=== PATIENT | female | born 1990 | race Caucasian/White ===

== ENCOUNTER 2020-01-20 10:38 | Emergency (ER) | payer OTHER, SELFPAY ==
[2020-01-20 10:44] VITALS: BP 107/57; PULSE 70; RESP 16; TEMP 36.3; O2SAT 100
--- NOTE | 2020-01-20 11:03 | ED.RECABL ---
HPI - Recheck/Abnormal Lab/Rx General Chief Complaint: Recheck/Abnormal Lab/Rx Stated Complaint: abnormal liver enzyme results Time Seen by Provider: 01/20/20 10:53 Source: patient Mode of arrival: ambulatory Limitations: no limitations History of Present Illness HPI narrative: Pt is a 29 y/o female who presents to the ED with c/o abnormal liver enzyme levels after she got her blood drawn at school 3 days ago. She states that her liver enzymes were nml when she had her blood drawn 6 months ago. She denies a H/o Hepatitis. Pt states that she has her Hep B vaccinations and she was told that it was not likely for her to have Hep C, but she has not received her blood work back. Pt reports numbness/tingling to extremities and extreme fatigue. She was referred to a neurologist but has not gotten an appointment yet. Pt also reports rt flank pain. She denies EtOH abuse, Tylenol use, or drug abuse. complaint: abnormal lab Initial visit (ago): day(s) (3) Returns today for: called because of abnormal lab/test Description of abnormal result: high liver ezymes Symptoms since prior visit: no new symptoms Context: called for abnormal lab result Associated symptoms: malaise and other (rt flank pain, numbness/tingling to extremities) Related Data Home Medications Medication Instructions Recorded Confirmed clonazepam [Klonopin] 0.5 mg PO TID 10/14/19 10/18/19 dextroamphetamine-amphetamine 30 mg PO BID 01/20/20 [Adderall] Allergies Allergy/AdvReac Type Severity Reaction Status Date / Time No Known Allergies Allergy Verified 01/20/20 10:47 Review of Systems Review of Systems: All systems reviewed & are unremarkable except as noted in HPI and below Constitutional: Constitutional: Reports fatigue Genitourinary: Genitourinary: Reports flank pain (rt) Neurologic: Reports numbness and Reports tingling PMFSH Past Medical History Medical History Achilles tendon tear ACL tear Anxiety Bipolar 1 disorder Surgical History Surgical History S/P ACL repair Social History Social History (Updated 01/20/20 @ 11:26 by [place]) Smoking status: Former smoker Alcohol intake: never Substance use: never Gender identity (if verbalized by the patient): Male Spiritual care concerns: No Exam Narrative: Exam Narrative: GENERAL: Well-appearing, well-nourished, and in no acute distress. HEAD: Normocephalic, atraumatic. EYES: PERRLA and EOMI. ENT: Nares clear, . Mucous membranes moist. NECK: Supple. CHEST: Clear to auscultation. No respiratory distress. HEART: Regular rate and rhythm. No murmur heard. Normal peripheral pulses. ABDOMEN: Soft, non tender, non distended, normal active bowel sounds. EXTREMITIES: Normal range of motion. No edema. SKIN: Warm, dry, no rash. NEURO: No focal deficits. Alert and oriented x3. PSYCH: Normal mood and affect. Course Course Emergency Course: Informed her about her lab work. I advised her to follow-up with the GI regarding elevated liver enzymes. Vital Signs Vital signs: Vital Signs Temperature 36.3 C L 01/20/20 10:44 Pulse Rate 70 01/20/20 10:44 Respiratory Rate 16 01/20/20 10:44 Blood Pressure 107/57 L 01/20/20 10:44 Pulse Oximetry 100 01/20/20 10:44 Temperature 36.3 C L 01/20/20 10:44 Pulse Rate 70 01/20/20 10:44 Respiratory Rate 16 01/20/20 10:44 Blood Pressure 107/57 L 01/20/20 10:44 Pulse Oximetry 100 01/20/20 10:44 MDM - Recheck/Abnormal Lab/Rx Lab Data Result diagrams: 01/20/20 11:23 01/20/20 11:23 Labs: Lab Results 01/20/20 01/20/20 01/20/20 Range/Units 11:23 11:23 11:23 WBC 5.0 (4.5-10.0) K/mm3 RBC 3.94 L (4.2-5.4) M/mm3 Hgb 11.9 L (12.0-15.0) g/dL Hct 35.5 L (37.0-47.0) % MCV 90.1 (80-100) fl MCH 30.2 (26-34) pg MCHC 33.5 (32-36) g/dl RDW 11.8 (11.5
[2020-01-20 11:29] LABS: Basophils Percent Auto 0.6 % (0.2-1.2); Eosinophils Absolute Auto 0.1 K/mm3 (0-0.3); Hematocrit 35.5 % (37.0-47.0); Hemoglobin 11.9 g/dL (12.0-15.0); Immature Granulocyte Absolute 0.01 K/mm3 (0.00-0.031); Immature Granulocyte Percent A 0.2 % (0-0.5); Lymphocytes Absolute Auto 2.05 K/mm3 (0.9-3.2); Lymphocytes Percent Auto 41.3 % (18.3-44.2); Mean Corpuscular HGB Conc 33.5 g/dl (32-36); Mean Corpuscular Hemoglobin 30.2 pg (26-34); Mean Corpuscular Volume 90.1 fl (80-100); Monocytes Absolute Auto 0.4 K/mm3 (0.1-0.6); Monocytes Percent Auto 8.9 % (2.6-8.5); Neutrophils Absolute Auto 2.3 K/mm3 (1.3-6.7); Platelet Count Result 224 k/mm3 (150-375); Red Blood Count 3.94 M/mm3 (4.2-5.4); Red Cell Distribution Width 11.8 % (11.5-14.5)
[2020-01-20 11:43] LABS: Alanine Aminotransferase 166 U/L (4-35); Albumin Level 4.2 g/dL (3.5-5.1); Alkaline Phosphatase 62 U/L (38-126); Aspartate Amino Transferase 41 U/L (14-36); Bilirubin,Total 0.3 mg/dL (0.2-1.3); Blood Urea Nitrogen 13 mg/dL (7-17); Carbon Dioxide 24 mmol/L (22-30); Chloride 103 mmol/L (98-107); Estimated CRCL calculation 82 ml/min; Estimated Glomerular Filt Rate > 60; Glucose 77 mg/dL (65-105); Potassium 3.8 mmol/L (3.4-5.0); Sodium 138 mmol/L (137-145)
[2020-01-20 12:14] LABS: Hepatitis B Surface Antigen Negative (Negative)
[2020-01-20 12:20] LABS: HAV RESULT Negative (Negative); Hepatitis B Core IgM Result Negative (Negative)
[2020-01-20 12:32] LABS: Hepatitis C Virus Antibody Negative (Negative)
[2020-01-20 13:19] VITALS: PULSE 80; RESP 20; TEMP 36.8; O2SAT 99
== END 2020-01-20 13:19 | disposition home or self-care (01) ==
PROVIDERS: Emergency Provider Family Medicine
DX: R74.0 Nonspecific elevation of levels of transaminase and lactic acid dehydrogenase [LDH] (principal); F41.9 Anxiety disorder, unspecified; F31.9 Bipolar disorder, unspecified
CPT/HCPCS: 36415; 80053; 80074; 85025; 99283

== ENCOUNTER 2020-10-19 13:48 | Outpatient (RCR) | payer OTHER, SELFPAY ==
[2020-10-19 15:15] VITALS: BP 89/50; PULSE 85
== END 2021-01-17 23:59 | disposition home or self-care (01) ==
LOC: ANHOBOP 13:48
PROVIDERS: Visit Provider Obstetrics & Gynecology Gynecology
DX: O36.8120 Decreased fetal movements, second trimester, not applicable or unspecified (principal); Z3A.27 27 weeks gestation of pregnancy
CPT/HCPCS: 59025

== ENCOUNTER 2021-12-16 13:19 | Emergency (ER) | payer BC, SELFPAY ==
--- NOTE | ~2021-12-16 | CT_ITS ---
EXAMINATION: CT brain wo con DATE: 12/16/2021 18:35 INDICATION: Headache. Visual disturbance. Dizziness. TECHNIQUE: Computed tomography (CT) of the head was performed without intravenous contrast. The mA wa s adjusted according to patient size. Iterative reconstruction technique was employed. Exam dose: 60 5.33 mGy-cm total exam DLP. COMPARISON: None FINDINGS: No skull fracture or bone destruction. The mastoid air cells and included paranasal sinuses are normally developed and aerated. No intracranial mass lesion or hemorrhage or cerebrovascular accident. No midline shift or mass effec t. No subdural or epidural hematoma. Normal ventricular size. Normal tian-white matter differentiatio n. The orbits are unremarkable. IMPRESSION: No significant abnormality Reviewed, dictated and finalized at [facility] Reviewed, dictated and finalized at [facility]. [facility] IMPRESSION: No significant abnormality
[2021-12-16 13:50] VITALS: BP 115/68; PULSE 91; RESP 18; TEMP 36.6; O2SAT 98
[2021-12-16 16:21] VITALS: BP 106/57; PULSE 60; RESP 16; TEMP 36.9; O2SAT 98
--- NOTE | 2021-12-16 17:31 | PC.NURSE ---
Pt reports vision changes with spots followed by a severe headache. States she feels a little better now .
[2021-12-16 17:59] VITALS: BP 118/64; PULSE 78; RESP 18; O2SAT 98
--- NOTE | 2021-12-16 18:40 | ED.HA ---
HPI - Headache General Chief Complaint: Headache Stated Complaint: dizzy/headache Time Seen by Provider: 12/16/21 17:36 Source: patient Mode of arrival: ambulatory Limitations: no limitations History of Present Illness HPI Narrative: 31-year-old female Generally pretty healthy Here today because of the second of 2 recent episodes of headache This morning around 10 AM she was at work which involves using a computer She reported a visual disturbance which sounds like a scotoma as if she had started a bright light and this was followed by dizziness and a pounding headache She took some Tylenol but did not help much Saw the nurse at work who wanted her go to the ER in [place] but she had to go home and check on her child And when she talked to her PCP she was advised to be checked in the ED The prior headache episode earlier this month was similar to this but she did not seek any evaluation at that time No fever, no sore throat, no stiff neck, no sinus symptoms, no focal neuro symptoms Related Data Home Medications Medication Instructions Recorded Confirmed clonazepam [Klonopin] 0.5 mg PO TID 10/14/19 12/16/21 dextroamphetamine-amphetamine 20 mg PO BID 01/20/20 12/16/21 [Adderall] Allergies Allergy/AdvReac Type Severity Reaction Status Date / Time No Known Allergies Allergy Verified 01/20/20 10:47 Review of Systems Review of Systems: All systems reviewed & are unremarkable except as noted in HPI and below Constitutional: Constitutional: Reports no additional constitutional complaints, Denies chills, Denies fever(s) and Denies headache(s) Eyes: Eyes: Reports no additional eye complaints, Reports change in vision and Reports photophobia ENT: Denies headache(s), Denies nasal congestion and Denies sore throat Cardiovascular: Cardiovascular: Denies chest pain and Denies dyspnea Respiratory: Respiratory: Denies cough and Denies dyspnea Gastrointestinal: Gastrointestinal: Denies vomiting Genitourinary: Genitourinary: Denies urinary frequency Musculoskeletal: Musculoskeletal: Denies myalgias, Denies deformity and Denies numbness Integumentary/Breasts: Skin/Breast: Denies rash and Denies wounds Neurologic: Reports headache(s), Denies focal weakness and Denies numbness Psychiatric: Psychiatric: Reports no additional psychiatric complaints Endocrine: Endocrine: Reports no additional endocrine complaints Hematologic/Lymphatic: Hematologic/Lymphatic: Reports no additional hematologic/lymphatic complaints Allergic/Immunologic: Allergic/Immunologic: Reports no additional allergic/immunologic complaints [facility] Past Medical History Medical History (Updated 12/16/21 @ 19:53 by Agustín Quijano MD) Achilles tendon tear ACL tear Anxiety Bipolar 1 disorder Surgical History Surgical History S/P ACL repair Social History Social History Smoking status: Former smoker Alcohol intake: never Substance use: never Gender identity (if verbalized by the patient): Male Spiritual care concerns: No Exam Const: General: cooperative, no acute distress and alert Orientation/consciousness: patient oriented x3 (alert) Limitations: No altered mental status HENMT: Head: normal to inspection, normocephalic and atraumatic Ears: external ears normal General nose exam: no epistaxis Other: No sinus tenderness Eyes: Conjunctivae: conjunctivae normal Pupils: Equal, round and reactive pupils present EOM: EOMs intact bilaterally Other: Sharp discs Neck: Neck: normal visual inspection, no meningeal signs, supple and no JVD Other: Supple Resp: Effort & Inspection: normal respiratory effort and not labored Auscultation: other (BS =) Skin: General skin exam: normal color and no rashes or lesions noted Neuro: General: patient oriented x3 (alert), moves all extremities, no meningeal signs and CN's
[2021-12-16] MEDS: diphenhydrAMINE HCl INJ 50 MG/ML VIAL 25 MG IV PUSH (18:54)
[2021-12-16] MEDS: PROCHLORPERAZINE EDISYLATE 10 MG/2 ML VIAL IV PUSH (18:54)
--- NOTE | 2021-12-16 19:00 | PC.NURSE ---
Assuming care of pt.
[2021-12-16 19:21] VITALS: BP 107/57; PULSE 60; RESP 16; O2SAT 98
[2021-12-16 20:08] VITALS: BP 110/65; PULSE 66; RESP 18; O2SAT 100
== END 2021-12-16 20:09 | disposition home or self-care (01) ==
PROVIDERS: Emergency Provider Emergency Medicine; PCP Physician Assistant
DX: G43.909 Migraine, unspecified, not intractable, without status migrainosus (principal); F31.9 Bipolar disorder, unspecified; F41.9 Anxiety disorder, unspecified; Z87.891 Personal history of nicotine dependence
CPT/HCPCS: 70450; 96374; 96375; 99284; J0780; J1200

== ENCOUNTER → 2024-05-17 12:29 | Outpatient (CLI) | payer BC, SELFPAY ==
--- NOTE | ~2024-05-17 | XR_ITS ---
EXAMINATION: XR hip LT 2V w AP pelvis DATE: 05/17/2024 12:58 INDICATION: Low back pain. TECHNIQUE: An anteroposterior view of the pelvis and 2 views of left hip were obtained. COMPARISON: None. FINDINGS: Bone alignment is normal. No fracture. There is mild osteoarthritis of the hips characteriz ed by tiny osteophytes. No joint space narrowing. IMPRESSION: 1. Mild osteoarthritis of the hips. Reviewed, dictated and finalized at [facility].
--- NOTE | ~2024-05-17 | XR_ITS ---
EXAMINATION: XR lumbar spine 2-3V DATE: 05/17/2024 13:00 INDICATION: Low back pain. TECHNIQUE: 3 views of lumbar spine on 4 radiographs were obtained. COMPARISON: None. FINDINGS: Bone alignment is normal. Vertebral body heights and intervertebral disc heights are normal . The facet joints are unremarkable. IMPRESSION: 1. Normal lumbar spine. Reviewed, dictated and finalized at [facility]. IMPRESSION: 1. Normal lumbar spine.
== END ==
PROVIDERS: PCP Physician Assistant; Visit Provider Physician Assistant
DX: M16.0 Bilateral primary osteoarthritis of hip (principal)
CPT/HCPCS: 72100; 73502

== ENCOUNTER 2024-06-25 01:37 | Emergency (ER) | payer BC, SELFPAY ==
--- NOTE | ~2024-06-25 | CT_ITS ---
EXAMINATION: CT abdomen pelvis w con DATE: 06/25/2024 07:10 INDICATION: Blood in stool. Diarrhea. TECHNIQUE: Computed tomography (CT) of the abdomen and pelvis was performed with 100 mL Omnipaque 350 intravenous contrast. Automated exposure control and iterative reconstruction technique were employe d. The dose-length product was 378.08 mGy-cm. COMPARISON: None. FINDINGS: The visualized portions of the lung bases are clear without pneumonia or pleural effusion. The heart size is normal. No pericardial effusion. The liver, gallbladder, spleen, pancreas, adrenal glands, and kidneys are normal. There are no dilated loops of bowel. There are changes of appendectom y. There are no pathologically enlarged lymph nodes. There is no free intraperitoneal fluid. There is mild lumbar spondylosis. IMPRESSION: 1. No etiology for the patient's symptoms. Reviewed, dictated and finalized at [facility].
[2024-06-25 01:41] VITALS: BP 121/79; PULSE 65; RESP 20; TEMP 36.8; O2SAT 99
[2024-06-25 01:58] VITALS: BP 131/78; PULSE 90; RESP 20; TEMP 36.6; O2SAT 100
--- NOTE | 2024-06-25 05:57 | ED.GENADULT ---
HPI - General Adult General Chief complaint: GI Bleed <Geovanni Velasco MD - Last Filed: 06/25/24 05:58> Stated complaint: blood in stool, back pain <Geovanni Velasco MD - Last Filed: 06/25/24 05:58> Time Seen by Provider: 06/25/24 05:20 <Geovanni Velasco MD - Last Filed: 06/25/24 05:58> History of Present Illness HPI narrative: patient is a 33-year-old female who presents emergency department with chief complaint of abdominal pain and GI bleeding. The patient reports that she has been having some discomfort in her back for while and then started having pain throughout her abdomen the patient reports that she had bright red blood in her stool today and decided to come to the emergency department for evaluation. <Geovanni Velasco MD - Last Filed: 06/25/24 05:58> Related Data Home medications: Home Medications Medication Instructions Recorded Confirmed clonazepam 0.5 mg tablet (Klonopin) 0.5 mg PO TID 10/14/19 12/16/21 dextroamphetamine-amphetamine 30 20 mg PO BID 01/20/20 12/16/21 mg tablet (Adderall) <Geovanni Velasco MD - Last Filed: 06/25/24 05:58> Allergies/adverse reactions: Allergies Allergy/AdvReac Type Severity Reaction Status Date / Time No Known Allergies Allergy Verified 01/20/20 10:47 <Geovanni Velasco MD - Last Filed: 06/25/24 05:58> Review of Systems Review of Systems: A 10 system review of systems was completed on the patient and is negative except for what is stated in the HPI. Nursing and ancillary documentation was reviewed. <Geovanni Velasco MD - Last Filed: 06/25/24 05:58> PMF Past Medical History Medical History: Medical History (Updated 06/25/24 @ 08:23 by Raffi Boswell MD) Achilles tendon tear ACL tear Anxiety Bipolar 1 disorder <Geovanni Velasco MD - Last Filed: 06/25/24 05:58> Surgical History Surgical History: Surgical History S/P ACL repair <Geovanni Velasco MD - Last Filed: 06/25/24 05:58> Social History Social History: Social History Smoking status: Former smoker Alcohol intake: never Substance use: never Living arrangements: with roommate(s) Occupation/Education: student Gender identity (if verbalized by the patient): Male Spiritual care concerns: No <Geovanni Velasco MD - Last Filed: 06/25/24 05:58> Exam Narrative: GENERAL: Well-appearing, well-nourished, and in no acute distress. HEAD: Normocephalic, atraumatic. EYES: PERRLA and EOMI. ENT: Nares clear, no rhinorrhea or epistaxis. Mucous membranes moist. NECK: Supple. CHEST: Clear to auscultation. No respiratory distress. HEART: Regular rate and rhythm. No murmur heard. Normal peripheral pulses. ABDOMEN: Soft, nontender, nondistended, normal active bowel sounds. : Trace guaiac-positive stool EXTREMITIES: Normal range of motion. No edema. SKIN: Warm, dry, no rash. NEURO: No focal deficits. Alert and oriented x3. PSYCH: Normal mood and affect. <Geovanni Velasco MD - Last Filed: 06/25/24 05:58> Course Course Emergency Course: Patient had no gross blood on digital exam and was faintly positive on stool guaiac. Hemoglobin normal. The 1 blood pressure that was low was not felt to be accurate and patient is nontoxic appearing and stable for discharge home. Recommend follow-up with PCP. Return if bleeding increases. <Raffi Boswell MD - Last Filed: 06/25/24 08:23> Vital Signs Vital signs: Vital Signs Temperature 98.3 F 06/25/24 01:41 Pulse Rate 65 06/25/24 01:41 Respiratory Rate 20 06/25/24 01:41 Blood Pressure 121/79 06/25/24 01:41 Pulse Oximetry 99 06/25/24 01:41 Oxygen Delivery Room Air 06/25/24 01:41 Temperature 98.0 F 06/25/24 06:23 Pulse Rate 63 0
[2024-06-25] MEDS: SODIUM CHLORIDE 0.9% IV 1,000 ML 999 ML IV CONT (06:16)
[2024-06-25] MEDS: ONDANSETRON INJ 4 MG/2 ML VIAL IV PUSH (06:17)
[2024-06-25] MEDS: MORPHINE SULFATE (*CRX) 4 MG/ML INJ IV PUSH (06:17)
[2024-06-25 06:23] VITALS: BP 95/54; PULSE 63; RESP 16; TEMP 36.7; O2SAT 100
[2024-06-25 06:25] LABS: BEDSIDEPREGUCG Negative
[2024-06-25 06:32] LABS: Basophils Absolute Auto 0.1 K/mm3 (0.0-0.1); Basophils Percent Auto 0.5 % (0.2-1.2); Eosinophils Absolute Auto 0.1 K/mm3 (0-0.3); Eosinophils Percent Auto 0.8 % (0-4.4); Hematocrit 41.5 % (37.0-47.0); Hemoglobin 13.5 g/dL (12.0-15.0); Immature Granulocyte Absolute 0.02 K/mm3 (0.00-0.031); Immature Granulocyte Percent A 0.2 % (0-0.5); Lymphocytes Absolute Auto 3.78 K/mm3 (0.9-3.2); Lymphocytes Percent Auto 41.2 % (18.3-44.2); Mean Corpuscular HGB Conc 32.5 g/dl (32-36); Mean Corpuscular Hemoglobin 30.2 pg (26-34); Mean Corpuscular Volume 92.8 fl (80-100); Mean Platelet Volume 10.6 fl (7.4-10.4); Monocytes Absolute Auto 0.5 K/mm3 (0.1-0.6); Monocytes Percent Auto 5.9 % (2.6-8.5); Neutrophils Absolute Auto 4.7 K/mm3 (1.3-6.7); Neutrophils Percent Auto 51.4 % (45.5-73.1); Platelet Count Result 215 k/mm3 (150-375); Red Blood Count 4.47 M/mm3 (4.2-5.4); Red Cell Distribution Width 12.2 % (11.5-14.5); White Blood Count 9.2 K/mm3 (4.5-10.0)
[2024-06-25 06:38] LABS: Add Urine Microscopic? YES; Appearance Urine Clear (Clear); Bacteria Urine 1+ /hpf; Bilirubin Urine Negative (Negative); Blood Urine Negative (Negative); Color Urine Yellow (Yellow); Glucose Urine UA Negative (Negative); Ketones Urine Trace mg/dL (Negative); Leukocyte Esterase Ur Trace LEU/UL (Negative); Nitrate Urine Negative (Negative); Non Pathogenic Casts 0-2; Protein Urine Negative (Negative); RBC Urine 0-2 /hpf (0-2); Specific Grav Ur 1.012 (1.001-1.035); Squamous Epithelial Cell Urine Moderate /hpf (Few); Urobilinogen Urine 0.2 mg/dL (<2.0); pH Urine 7.5 (5.0-9.0)
[2024-06-25 06:46] LABS: Alanine Aminotransferase 23 U/L (6-35); Alkaline Phosphatase 37 U/L (38-126); Anion Gap 14 mmol/L (4-12); Aspartate Amino Transferase 32 U/L (14-36); Bilirubin,Total 1.2 mg/dL (0.2-1.3); Blood Urea Nitrogen 15 mg/dL (7-17); Calcium 9.7 mg/dL (8.4-10.2); Carbon Dioxide 22 mmol/L (22-30); Chloride 103 mmol/L (98-107); Estimated CRCL calculation 79 ml/min; Estimated Glomerular Filt Rate > 60; Glucose 89 mg/dL (65-110); Lipase 88 U/L (23-300); Potassium 3.4 mmol/L (3.4-5.0); Sodium 139 mmol/L (137-145)
[2024-06-25 06:47] VITALS: O2SAT 99
[2024-06-25 07:03] LABS: Lactic Acid Reflex 0.9 mmol/L (0.7-2.0)
--- NOTE | 2024-06-25 07:12 | PC.NURSE ---
report to georgette heard
--- NOTE | 2024-06-25 07:12 | PC.NURSE ---
pt to ct at this time
[2024-06-25 07:45] VITALS: O2SAT 97
[2024-06-25 08:25] VITALS: BP 108/74; PULSE 88; RESP 16; O2SAT 98
== END 2024-06-25 08:41 | disposition home or self-care (01) ==
PROVIDERS: Emergency Medicine; Emergency Provider Emergency Medicine; PCP Physician Assistant
DX: K92.1 Melena (principal); F31.9 Bipolar disorder, unspecified
CPT/HCPCS: 36415; 74177; 80053; 81001; 81025; 83605; 83690; 85025; 86850; 86900; 86901; 87086; 96361; 96374; 96375; 99284; J2270; J2405; J7030; Q9967

== ENCOUNTER 2024-11-13 11:52 | Emergency (ER) | payer BC, SELFPAY ==
[2024-11-13 11:50] VITALS: BP 92/75; PULSE 92; RESP 18; TEMP 36.6; O2SAT 98
[2024-11-13] MEDS: SODIUM CHLORIDE 0.9% IV 1,000 ML 999 ML IV CONT ×2 (12:22→13:01)
[2024-11-13 12:23] LABS: Basophils Absolute Auto 0.1 K/mm3 (0.0-0.1); Basophils Percent Auto 0.3 % (0.2-1.2); Eosinophils Percent Auto 0.1 % (0-4.4); Hematocrit 44.4 % (37.0-47.0); Hemoglobin 15.1 g/dL (12.0-15.0); Immature Granulocyte Absolute 0.06 K/mm3 (0.00-0.031); Immature Granulocyte Percent A 0.4 % (0-0.5); Lymphocytes Absolute Auto 0.35 K/mm3 (0.9-3.2); Lymphocytes Percent Auto 2.4 % (18.3-44.2); Mean Corpuscular Hemoglobin 30.7 pg (26-34); Mean Corpuscular Volume 90.2 fl (80-100); Mean Platelet Volume 11.1 fl (7.4-10.4); Monocytes Absolute Auto 0.7 K/mm3 (0.1-0.6); Monocytes Percent Auto 4.8 % (2.6-8.5); Neutrophils Absolute Auto 13.1 K/mm3 (1.3-6.7); Platelet Count Result 219 k/mm3 (150-375); Red Blood Count 4.92 M/mm3 (4.2-5.4); White Blood Count 14.3 K/mm3 (4.5-10.0)
[2024-11-13] MEDS: ONDANSETRON INJ 4 MG/2 ML VIAL IV PUSH (12:23)
[2024-11-13] MEDS: MORPHINE SULFATE (*CRX) 4 MG/ML INJ IV PUSH (12:23)
[2024-11-13 12:30] VITALS: PULSE 77; RESP 20; O2SAT 100
--- NOTE | 2024-11-13 12:32 | ED.GENADULT ---
HPI - General Adult General Chief complaint: Nausea/Vomiting/Diarrhea Stated complaint: n/v/d Time Seen by Provider: 11/13/24 11:53 History of Present Illness HPI narrative: Patient is a 34-year-old female who presents ER with nausea and vomiting. Sudden onset last night. Associated with diarrhea. Has diffuse abdominal cramping. No known sick contacts. His tried hydrating with Pedialyte and cannot keep it down. She has no antiemetics. No known sick contacts. No blood in stool or emesis. Related Data Home Medications ?Medication ?Instructions ?Recorded ?Confirmed ?Last Taken ?Type clonazepam 0.5 mg tablet (Klonopin) 0.5 mg PO TID 10/14/19 12/16/21 10/17/19 History dextroamphetamine-amphetamine 30 20 mg PO BID 01/20/20 12/16/21 Unknown History mg tablet (Adderall) Allergies Allergy/AdvReac Type Severity Reaction Status Date / Time No Known Allergies Allergy Verified 11/13/24 12:00 Review of Systems Review of Systems: All systems reviewed & are unremarkable except as noted in HPI and below Constitutional: Constitutional: Reports no additional constitutional complaints ENT: Reports system reviewed and no additional complaints, except as documented Cardiovascular: Cardiovascular: Reports no additional cardiovascular complaints Respiratory: Respiratory: Reports no additional respiratory complaints Gastrointestinal: Gastrointestinal: Reports abdominal pain, Reports diarrhea, Reports nausea and Reports vomiting Genitourinary: Genitourinary: Reports no additional female genitourinary complaints [facility] Past Medical History Medical History (Updated 11/13/24 @ 13:27 by Raffi Boswell MD) Bipolar 1 disorder Anxiety Achilles tendon tear ACL tear Surgical History Surgical History S/P ACL repair Social History Social History Smoking status: Former smoker Alcohol intake: never Substance use: never Living arrangements: with roommate(s) Occupation/Education: student Gender identity (if verbalized by the patient): Male Spiritual care concerns: No Exam Narrative: GENERAL: Fatigued-appearing, well-nourished, and in no acute distress. HEAD: Normocephalic, atraumatic. ENT: Mucous membranes moist. CHEST: Clear to auscultation. No respiratory distress. HEART: Regular rate and rhythm. Normal peripheral pulses. ABDOMEN: Soft, diffuse abdominal discomfort without guarding, has increased nausea with palpation, nondistended. EXTREMITIES: Normal range of motion. No edema. SKIN: Warm, dry, no rash. NEURO: Alert and oriented x3. PSYCH: Normal mood and affect. Course Course Emergency Course: Patient hydrated, feels markedly improved with morphine Zofran. Abdomen soft nontender on repeat evaluation. White count elevated from retching. Will give a 2 L of fluid patient is appropriate for discharge home. Vital Signs Vital signs: Vital Signs Temperature 97.9 F 11/13/24 11:50 Pulse Rate 92 11/13/24 11:50 Respiratory Rate 18 11/13/24 11:50 Blood Pressure 92/75 L 11/13/24 11:50 Pulse Oximetry 98 11/13/24 11:50 Oxygen Delivery Room Air 11/13/24 11:50 Temperature 97.9 F 11/13/24 11:50 Pulse Rate 70 11/13/24 13:01 Respiratory Rate 18 11/13/24 13:01 Blood Pressure 95/57 L 11/13/24 13:01 Pulse Oximetry 100 11/13/24 13:01 Oxygen Delivery Room Air 11/13/24 11:50 Medical Decision Making Vital Signs Vital Signs: Vital Signs Temperature 97.9 F 11/13/24 11:50 Pulse Rate 92 11/13/24 11:50 Respiratory Rate 18 11/13/24 11:50 Blood Pressure 92/75 L 11/13/24 11:50 Pulse Oximetry 98 11/13/24 11:50 Oxygen Delivery Room Air 11/13/24 11:50 Temperature 97.9 F 11/13/24 11:50 Pulse Rate 70 11/13/24 13:01 Respiratory Rate 18 11/13/24 13:01 Blood Pressure 95/57 L 11/13/24 13:01 Pulse Oximetry 100 11/13/24 13:01 Oxygen Delivery Room Air 11/13/24 11:50 Lab Data 11/13/24 12:17 11/13/24 12:17 Labs: Lab Results 11/13/24 11/13/24 11/13/24 Range/Units 12:17 13:12 13:14 WBC 14.3 H (4.5-10.0) K/mm3 RBC 4.92 (4.2-5.4) M/mm3 Hgb 15.1 H (12.0-15.0) g/dL Hct 44.4 (37.0-47.0) % MCV 90.2 (80-100) fl MCH 30.7 (26-34) pg MCHC 34.0 (32-36) g/dl RDW 12.0 (11.5-14.5) % Plt Count 219 (150-375) k/mm3 MPV 11.1 H (7.4-10.4) fl Immature Gran % (Auto) 0.4 (0-0.5) % Neut % (Auto) 92.0 H (45.5-73.1) % Lymph % (Auto) 2.4 L (18.3-44.2) % [place] % (Auto) 4.8 (2.6-8.5) % Eos % (Auto) 0.1 (0-4.4) % Baso % (Auto) 0.3 (0.2-1.2) % Lymph # (Auto) 0.35 L (0.9-3.2) K/mm3 [place] # (Auto) 0.7 H (0.1-0.6) K/mm3 Eos # (Auto) 0.0 (0-0.3) K/mm3 Baso # (Auto) 0.1 (0.0-0.1) K/mm3 Abs Immat Gran (auto) 0.06 H (0.00-0.031) K/mm3 Absolute Neuts (auto) 13.1 H (1.3-6.7) K/mm3 Absolute Nucleated RBC 0.000 (0.0-0.012) K/mm3 Nucleated RBC % 0.0 (0.0-0.2) % Sodium 139 (137-145) mmol/L Potassium 4.1 (3.4-5.0) mmol/L Chloride 108 H (98-107) mmol/L Carbon Dioxide 18 L (22-30) mmol/L Anion Gap 13 H (4-12) mmol/L BUN 21 H (7-17) mg/dL Creatinine 0.90 (0.7-1.0) mg/dL Estim Creat Clear Calc 79 ml/min Estimated GFR > 60 (59 - ) Glucose 146 H (65-110) mg/dL Calcium 9.8 (8.4-10.2) mg/dL Total Bilirubin 1.3 (0.2-1.3) mg/dL AST 24 (14-36) U/L ALT 25 (6-35) U/L Alkaline Phosphatase 49 (38-126) U/L Total Protein 8.0 (6.3-8.2) g/dL Albumin 5.3 H (3.5-5.1) g/dL Lipase 78 (23-300) U/L Urine Color Yellow (Yellow) Urine Appearance Clear (Clear) Urine pH 5.5 (5.0-9.0) Ur Specific [place] 1.030 (1.001-1.035) Urine Protein Trace (Negative) mg/dL Urine Glucose (UA) Negative (Negative) mg/dL Urine Ketones 2+ H (Negative) mg/dL Ur Blood (Man) Negative (Negative) Urine Nitrate Negative (Negative) Urine Bilirubin Negative (Negative) Urine Urobilinogen 0.2 (<2.0) mg/dL Leukocyte Esterase Rfl Trace H (Negative) OLE/UL Urine RBC 0-2 (0-2) /hpf Urine WBC 0-5 (0-3) /hpf Ur Squamous Epith Cells Occasional (Few) /hpf Urine Bacteria Rare /hpf Urine Casts 0-2 POC Urine HCG, Qual Negative (Negative) Discharge Plan Discharge Clinical Impression: Gastroenteritis Patient Disposition: Home, Self-Care Condition: Stable Instructions: Gastroenteritis (ED) Additional Instructions: Please drink plenty of fluids at home. Return to the emergency department if you develop high fevers, have persistent severe abdominal pain, or have bloody stools or vomit, as these could be signs of a more serious medical emergency. Return to the emergency department if you are unable to keep down liquids because of severe nausea/vomiting. Patient Language: Greek Prescriptions: New ondansetron 4 mg tablet,disintegrating 4 mg PO Q6H PRN (Reason: nausea and vomiting) Qty: 10 0RF No Action clonazepam [Klonopin] 0.5 mg Tablet 0.5 mg PO TID dextroamphetamine-amphetamine [Adderall] 30 mg Tablet 20 mg PO BID Follow-up/Referrals: Onel,ELIECER Salinas [Primary Care Provider] - 1 Week
[2024-11-13 12:34] LABS: Alanine Aminotransferase 25 U/L (6-35); Albumin Level 5.3 g/dL (3.5-5.1); Alkaline Phosphatase 49 U/L (38-126); Anion Gap 13 mmol/L (4-12); Aspartate Amino Transferase 24 U/L (14-36); Bilirubin,Total 1.3 mg/dL (0.2-1.3); Blood Urea Nitrogen 21 mg/dL (7-17); Calcium 9.8 mg/dL (8.4-10.2); Carbon Dioxide 18 mmol/L (22-30); Chloride 108 mmol/L (98-107); Estimated CRCL calculation 79 ml/min; Estimated Glomerular Filt Rate > 60; Glucose 146 mg/dL (65-110); Lipase 78 U/L (23-300); Potassium 4.1 mmol/L (3.4-5.0); Sodium 139 mmol/L (137-145)
[2024-11-13 12:42] VITALS: BP 94/62; PULSE 69; RESP 18; O2SAT 100
[2024-11-13 13:01] VITALS: BP 95/57; PULSE 70; RESP 18; O2SAT 100
[2024-11-13 13:16] LABS: BEDSIDEPREGUCG Negative (Negative)
[2024-11-13 13:22] LABS: Add Urine Microscopic? YES; Appearance Urine Clear (Clear); Bacteria Urine Rare /hpf; Bilirubin Urine Negative (Negative); Blood Urine Negative (Negative); Color Urine Yellow (Yellow); Glucose Urine UA Negative (Negative); Ketones Urine 2+ mg/dL (Negative); Leukocyte Esterase Ur Trace LEU/UL (Negative); Nitrate Urine Negative (Negative); Non Pathogenic Casts 0-2; Protein Urine Trace mg/dL (Negative); RBC Urine 0-2 /hpf (0-2); Squamous Epithelial Cell Urine Occasional /hpf (Few); Urobilinogen Urine 0.2 mg/dL (<2.0); WBC Urine 0-5 /hpf (0-3); pH Urine 5.5 (5.0-9.0)
[2024-11-13 13:31] VITALS: BP 107/63; PULSE 89; RESP 15; O2SAT 99
[2024-11-13 13:52] VITALS: BP 107/63; PULSE 86; RESP 15; O2SAT 100
--- OUTSIDE RECORDS SUMMARY | 2024-11-20 16:52 | XMS_ITS | Encounter Summary ---
Author Organization [facility] Address [address] [place] [address]. [place] [address] [place] [address] Care Team Providers Care Floor Care Technician Name Role Phone New Referring, Provider Primary Care Provider Un available Reason for Visit * Auth/Cert Specialty Diagnoses / Procedures Referred By Barber cardenas Referred To [facility] Referral ID Status Reason Start Date Expiration Date Visits Re quested Visits Authorized [id number] 1 1 Encounter Details Date Type Department Care Team (Late st Contact Info) Description 01/12/2021 10:37 PM MONITORING MANAGER Anesthesia Event [facility] [place] [address] Clem Segura CRNA [address] [place] [address] Anesthesia Record Procedure Summary Procedure Name Responsible Anesthesiologist Anesthesia Start Time Anesthesia Stop Time LABOR EPIDURAL Events Date Time Event Comment 01/12/2021 2243 01/13/2021 0249 Floor Procedure 0255 Epidural Start 0308 An Epidural Placement Comple te 0308 Quick Note Patient was michelle y anxious throughout the procedure and had difficulty maintaining position. Epidural placed without complication. 0630 Anes Handoff [place] BODY DESIGN CHECKER f or Natanael Segura BODY DESIGN CHECKER. Report received, chart reviewed and all questions answered. 0810 Quick Note Pt c/o pain wit h contractions and currently 10cm. Small top off dose given via epidural. 2cc of 0.5%marcaine with 100 mcg fentanyl via epidural. 0854 Baby Delivered Meds Name Total fentaNYL 2 mcg/mL-BUpivacaine 0.125 % 15 0 mL epidural 67.8 mL lidocaine (PF) (XYLOCAINE) 1% injection 30 mg lidocaine 1.5%-EPINEPHrine 1:200,000 inj ection 3 mL BUpivacaine 0.5% (PF) injection 2 mL fentaNYL (SUBLIMAZE) 100 mcg/2 mL inject ion 100 mcg * Agents No agents on file. * Blood No blood administrations on file. Lines, Drains, and Airways Type Details Placement Removal Epidural Placement Date: 12/25 12/13; Placement Time: 315 (created via procedure documentation); Placement Location: Lumbar; Removal Date: 01/13/21; Removal Time: 93101/13/21315 by Clem Segura, BODY DESIGN CHECKER 01/13/21931 by Elisabet Frances RN documented in this encounter Social History Tobacco Use Types Packs/Day Years Used Date Smoking Tobacco: Former Cigarettes Q uit: 2018 Electronic Cigarettes Alcohol Use Standard Drinks/Week Comments Not Currently 0 (1 standard drink = 0.6 oz pur e alcohol) Humiliation, Afraid, Rape, and Kick questionnair e Answer Date Recorded Within the last year, have y ou been afraid of your partner or ex-partner? No 01/12/2021 Within the last year, have y ou been humiliated or emotionally abused in other ways by your partner or ex-partner? No Within the last year, have y ou been kicked, hit, slapped, or otherwise physically hurt by your partner or ex-partner? No 01/12/2021 Within the last year, have y ou been raped or forced to have any kind of sexual activity by your partner or ex-partner? No 01/12/2021 Social Connection and Isolation Panel [NHANES] A nswer Date Recorded In a typical week, how many times do you talk on the phone with family, friends, or neighbors? Patient declined 01/12/2021 How often do you get togethe r with friends or relatives? Patient declined 01/12/2021 How often do you attend jew or restoration serv ices? Patient declined 01/12/2021 Do you belong to any clubs o r organizations such as jew groups, unions, fraternal or athletic groups, or school groups? Patient declined 01/12/2021 How often do you attend meet ings of the clubs or organizations you belong to? Patient declined 01/12/2021 Are you , , di vorced, , never , or living with a partner? Patient declined 01/12/2021 Overall Financial Resource Strain (CARDIA) Answe r Date Recorded How hard is it for you to pa y for the very basics like food, housing, medical care, and heating? Not hard at all 01/12/2021 [facility] Questionnaire Answer Date Recorded Do you feel stress - tense, restless, nervous, or anxious, or unable to sleep at night because your mind is troubled all the time - these days? Patient declined 01/12/2021 Exercise Vital Sign Answer Date Recorde d On average, how many days pe r week do you engage in moderate to strenuous exercise (like a brisk walk)? Patient declined On average, how many minutes do you engage in exercise at this level? Patient declined 01/12/2021 Hunger Vital Sign Answer Date Recorded Within the past 12 months, y ou worried that your food would run out before you got the money to buy more. Never true 01/12/20 21 Within the past 12 months, t he food you bought just didn't last and you didn't have money to get more. Never true 01/12/2021 PRAPARE - Transportation Answer Date Re corded In the past 12 months, has l ack of transportation kept you from medical appointments or from getting medications? No 12/25 In the past 12 months, has l ack of transportation kept you from meetings, work, or from getting things needed for daily living? No 01/12/2021 Depression Answer Date Recor ded Last EPDS Total Score 9 01/14/2021 Last EPDS Self Harm Result 01/14 Comments Yes Sex and Gender Information Value Date Recorded Sex Assigned at Not on file Legal Sex Female 12:55 PM MONITORING MANAGER Gender Identity Not on file Sexual Orientation Not on file COVID-19 Exposure Response Date Recorded In the last month, have you been in contact with someone who was confirmed or suspected to have Coronavirus / COVID-19? No / Unsure 01/12/2021 7:52 PM MONITORING MANAGER documented as of this encounter Functional Status documented as of this encounter Mental Status * Question Answer Entry Date Author Status Because of a physical, mental, or emotional condition, do you have serious difficulty concentrating, remembering, or making decisions? No 01/12/2021 8:53 PM MONITORING MANAGER Randi Mckay RN Active documented in this encounter OR Notes * Anesthesia Postprocedure Evaluation - Mary Bhatti CRNA - 01/14/2021 9:32 AM CST Anesthesia Post-op Note Erika Childs Procedure(s): LABOR EPIDURAL Anesthesia type: epidural Vitals: 01/14/21729 BP: 111/46 Vitals: 01/14/21729 Pulse: 61 Vitals: 01/13/211999 Resp: 16 Vitals: 01/14/21729 Temp: 36.3 ??C Vitals: 01/14/21729 SpO2: 99% Patient Location: Inpatient Unit Level of Consciousness: awake, oriented and alert Pain Management: adequate analgesia Airway Patency: patent Respiratory Status: acceptable Cardiovascular Status: acceptable and stable Post-Op Nausea: none Postoperative Hydration: euvolemic Complications: no anesthesia complication Comments: Blood pressure 111/46, pulse 61, temperature 36.3 ??C, resp. rate 16, height 5' 8 (1.727m), weight 97.1 kg (214 lb), SpO2 99 %, unknown if currently . TORING MANAGER * Anesthesia Procedure Notes - Clem Segura CRNA - 01/13/2021 3:16 AM MONITORING MANAGER Associated Order(s): Labor Epidural Epidural: Date/Time: 01/13/2021 3:16 AM Patient location during procedure: OB Reason for block: labor epidural Preanesthetic Checklist Completed: patient identified, consent, pre-op evaluation, timeout performed, IV checked, risks andbenefits discussed and monitors and equipment checked Procedure Information: Patient position: sitting Prep: chlorhexidine Patient monitoring: continuous pulse oximetry, heart rate and non-invasive blood pressure Approach: midline Location: L3-L4 Injection technique: FRANSICO saline Placement Location: lumbar Ultrasound-guided Placement: No Needle and Catheter: MRI Compatible: B Barker Perifix tray Ref # [id number] Needle type: Tuohy Needle gauge: 17 G Needle length: 3.5 in Needle insertion depth: 6 cm Catheter type: side hole Catheter size: 19 G Catheter at skin depth: 11 cm Test dose: negative and lidocaine 1.5% with epinephrine 1-to-200,000 Needle attempts: 1 Additional Notes Called to room for c/o pain with ctx's. Pain rated at 9/10. Placed epidural without complications. Well tolerated. KEM/ADRIANA on completion. Post epidural pain rated at 4/10. Epidural kit Lot: [id number] Exp: 11/2021 TORING MANAGER * Anesthesia Preprocedure Evaluation - Clem Segura CRNA - 01/12/2021 10:39 PM CST Anesthesia ROS/MED History Reviewed: Patient summary , Nursing notes , Family history anesthesia, Anesthesia history , Medications , Labs , Images/Studies Pre-Anesthetic State: alert, awake, responds appropriately and anxious Pulmonary (+) asthma, (exercise induced) ROS comment: As a child. Cardiovascular neg cardio ROS Neuro/Psych (+) psychiatric problem, (bipolar disorder), (anxiety), (post-traumatic stress disorder), (attention deficit) GI/Hepatic/Renal neg GI/hepatic/renal ROS Endo/Other (+) obese Comments: Ureteropelvic junction obstruct, congenital. Corrective surgery of right kidney. GENERAL COMMENTS No Known Allergies History reviewed. No pertinent past medical history. Past Surgical History: No date: ACHILLES TENDON REPAIR 2011: APPENDECTOMY No date: KIDNEY SURGERY Comment: 2 kidneys on R side, blood supply cut off ureter, R dimembered pyloplasty 2016, 2018: KNEE SURGERY; Right Asthma, exercise induced as a child ?? Pyelonephritis ? Bipolar 1 disorder? Anxiety ? Panic attacks ? ADHD Physical Evaluation Airway Mallampati: II TM Distance: >3 FB Neck ROM: normal Dental No notable dental history Pulmonary Pulmonary exam normal Cardiovascular Cardiovascular exam normal Other findings: Blood pressure 122/70, pulse 65, temperature 37.1 ??C, temperature source Oral, resp. rate 16, height 5' 8 (1.727 m), weight 97.1 kg (214 lb). 01/12/21 2105 WBC 10.8 RBC 3.71* HGB 11.5* HCT 34.3* PLT 142 Anesthesia Plan ASA 2 Induction Anesthesia type: epidural IVAN per patient request. Risk, benefits, and alternative options discussed. Patient consented and wishes to proceed. Informed Consent Anesthetic plan and risks discussed with patient of whom consent was obtained. . TORING MANAGER TORING MANAGER TORING MANAGER documented in this encounter Plan of Treatment Not on file documented as of this encounter Procedures Procedure Name Priority Date/Time Associated Diagnosis Comments LABOR EPIDURAL Routine 01/13/2021 3:16 AM MONITORING MANAGER documented in this encounter Results * LABOR EPIDURAL (01/13/2021 3:16 AM MONITORING MANAGER) Clem Rizo CRNA - 01/13/2021 3:16 AM MONITORING MANAGER Clem Segura CRNA ? 01/13/2021 ??3:17 AM Epidural: Date/Time: ??01/13/2021 3:16 AM Patient location during procedure: OB Reason for block: labor epidural Preanesthetic Checklist Completed: patient identified, consent, pre-op evaluation, timeout performed, IV checked, risks and benefits discussed and monitors and equipment checked Procedure Information: Patient position: sitting Prep: chlorhexidine Patient monitoring: continuous pulse oximetry, heart rate and non-invasive blood pressure Approach: midline Location: L3-L4 Injection technique: FRANSICO saline Placement Location: ??lumbar Ultrasound-guided Placement: ??No Needle and Catheter: MRI Compatible: B Barker Perifix tray Ref # [id number] Needle type: Tuohy Needle gauge: 17 G Needle length: 3.5 in Needle insertion depth: 6 cm Catheter type: side hole Catheter size: 19 G Catheter at skin depth: 11 cm Test dose: negative and lidocaine 1.5% with epinephrine 1-to-200,000 Needle attempts: ??1 Additional Notes Called to room for c/o pain with ctx's. ??Pain rated at 9/10. ??Placed epidural without complications. ??Well tolerated. ??KEM/ADRIANA on completion. ?? Post epidural pain rated at 4/10. Epidural kit Lot: ??[id number] Exp: ??11/2021 Clem Segura CRNA [place] ANESTHESIA Final Resu lt documented in this encounter Visit Diagnoses Not on filedocumented in this encounter Administered Medications Inactive Administered Medications - up to 3 most recent administrations Medication Order MAR Action Action Date Dose Rate Site BUpivacaine (PF) (MARCAINE) 0.5 % injection PRN, Starting on 01/13/21 at 0810, Until 01/14/21 at 0933, Anesthesia Intra-Op Given 01/13/2021 8:10 AM MONITORING MANAGER 2 mLs fentaNYL (SUBLIMAZE) injection PRN, Starting on 01/13/21 at 0810, Until 01/14/21 at 0933, Anesthesia Intra-Op Given 01/13/2021 8:10 AM MONITORING MANAGER 100 mcg fentaNYL 2 mcg/mL-BUpivacaine 0.125 % 150 mL epidural 12 mL/hr, Epidural, Continuous, Starting on 01/12/21 at 2300, Until 01/13/21 at 0942, Continuous Epidural Infusion with Patient Controlled Epidural Analgesia (PCEA) BASAL INFUSION RATE: 12 mL/hr PCEA DEMAND DOSE: 7mL LOCKOUT INTERVAL: 30 minutes MAX DOSE LOCKOUT: 112mL / 4 hours New Bag 01/13/2021 3:15 AM MONITORING MANAGER 12 mL/hr 12 mL/hr lidocaine (PF) (XYLOCAINE) 1 % injection PRN, Starting on 01/13/21 at 0302, Until 01/14/21 at 0933, Anesthesia Intra-Op Given 01/13/2021 3:02 AM MONITORING MANAGER 30 mg lidocaine-EPINEPHrine 1.5 %-1:[id number] injection PRN, Starting on 01/13/21 at 0303, Until 01/14/21 at 0933, Anesthesia Intra-Op Given 01/13/2021 3:03 AM MONITORING MANAGER 3 mLs documented in this encounter Care Teams Floor Care Technician Relationship Specialty Start Date End Date New Referring, Provider PCP - General UNKNOWN PHYSICIAN SPECIALTY 01/09/21 documented as of this encounter
--- OUTSIDE RECORDS SUMMARY | 2024-11-20 16:52 | XMS_ITS | Encounter Summary ---
Author Organization [facility] Address [address] [place] [address]. [place] [address] [place] [address] Care Team Providers Care School Teacher Name Role Phone New Referring, Provider Primary Care Provider Un available Encounter Details Date Type Department Care Team (Late st Contact Info) Description 01/20/2021 Hospital Follow-up Call [facility] Women [place] [address] Berenice Sam, RN Social History Tobacco Use Types Packs/Day Years [...] declined 01/12/2021 How often do you attend bahai or jainism serv ices? Patient declined 01/12/2021 Do you belong to any clubs o r organizations such as bahai groups, unions, fraternal or athletic groups, or [...] and heating? Not hard at all 01/12/2021 [facility]at [facility] - Occupational Stress Questionnaire Answer Date Recorded [...] Last EPDS Self Harm Result 01/14 Comments No Sex and Gender Information Value Date Recorded Sex Assigned at Not on file Legal Sex Female 12:55 PM SLEEP MEDICINE PHYSICIAN Gender Identity Not on file Sexual Orientation Not on file COVID-19 Exposure Response Date Recorded In the last month, have you been in contact with someone who was confirmed or suspected to have Coronavirus / COVID-19? No / Unsure 01/12/2021 7:52 PM SLEEP MEDICINE PHYSICIAN documented as of this encounter Functional Status * RETIRED Are you deaf or do you have serious difficulty hearing Answer Date of Assessment Author Status No 01/12/2021 8:53 PM SLEEP MEDICINE PHYSICIAN Activ e * RETIRED Are you blind or do you have serious difficulty seeing, even when wearing glasses? Answer Date of Assessment Author Status No 01/12/2021 8:53 PM SLEEP MEDICINE PHYSICIAN Activ e * Do you have serious difficulty walking or climbing stairs? Answer Date of Assessment Author Status No 01/12/2021 8:53 PM SLEEP MEDICINE PHYSICIAN Randi Mckay R N Active * Do you have difficulty dressing or bathing? Answer Date of Assessment Author Status No 01/12/2021 8:53 PM SLEEP MEDICINE PHYSICIAN Randi Mckay R N Active * Because of a physical, mental, or emotional condition, do you have difficulty doing errands alone such as visiting a doctor's office or shopping? Answer Date of Assessment Author Status No 01/12/2021 8:53 PM SLEEP MEDICINE PHYSICIAN Randi Mckay R N Active documented as of this encounter Mental Status * Because of a physical, mental, or emotional condition, do you have serious difficulty concentrating, remembering, or making decisions? Answer Entry Date Author Status No 01/12/2021 8:53 PM SLEEP MEDICINE PHYSICIAN Randi Mckay R N Active documented in this encounter Plan of Treatment Not on file documented as of this encounter Visit Diagnoses Not on filedocumented in this encounter Care Teams School Teacher Relationship Specialty Start Date End Date New Referring, Provider PCP - General UNKNOWN PHYSICIAN SPECIALTY 01/09/21 documented as of this encounter
--- OUTSIDE RECORDS SUMMARY | 2024-11-20 16:52 | XMS_ITS | Clinical Summary ---
Author Organization [facility] Address [address] [place] [address]. [place] [address] [place] [address] Care Team Providers Care Bottle Feeder Name Role Phone New Referring, Provider Primary Care Provider Un available Allergies No known active allergies Medications vitamin, low iron, ( VITAMIN WITH IRON) 27-0.8 MG tablet Take 1 tablet by mouth daily. Active docusate sodium (COLACE) 100 MG capsule Take 1 capsule (100 mg total) by mouth 2 (two) times daily as needed for Constipation . 14 capsule 01/14/2021 Active ibuprofen 800 MG tablet Take 1 tablet (800 mg total) by mouth every 8 (eight) hours as needed for Pain. 30 tablet 01/14/2021 Active Active Problems No known active problems Resolved Problems Problem Noted Date Diagnosed Date Resolved Date Encounter for supervision of other normal in third trimester ([facility]) 01/12/2021 0 01/13/2021 Immunizations Name Administration Dates Next Due Fluzone 6 Months+ Quad (0.5 mL Prefilled Syringe ) 01/14/2021 Family History Medical History Relation Comments No Known Problems Brother No Known Problems Father No Known Problems Maternal Grandfather No Known Problems Maternal Grandmother No Known Problems Mother cancer Paternal Grandfather No Known Problems Paternal Grandmother No Known Problems Sister Relation Status Comments Brother Father Maternal Grandfather Maternal Grandmother Mother Paternal Grandfather Paternal Grandmother Sister Social History Tobacco Use Types Packs/Day Years [...] declined 01/12/2021 How often do you attend hinduism or mandaen serv ices? Patient declined 01/12/2021 Do you belong to any clubs o r organizations such as hinduism groups, unions, fraternal or athletic groups, or [...] and heating? Not hard at all 01/12/2021 [facility]at ional Health - Occupational Stress [...] on file Legal Sex Female 12:55 PM PARALEGAL ASSISTANT Gender Identity Not on file Sexual Orientation Not on file Last Filed Vital Signs Vital Sign Reading Time Taken Comments Blood Pressure 111/46 01/14/2021 7:30 AM PARALEGAL ASSISTANT Pulse 61 01/14/2021 7:30 AM PARALEGAL ASSISTANT Temperature 36.3 ??C (97.3 ??F) 01/14/2021 7:30 AM CS T Respiratory Rate 16 01/13/2021 8:00 PM PARALEGAL ASSISTANT Oxygen Saturation 99% 01/14/2021 7:30 AM PARALEGAL ASSISTANT Inhaled Oxygen Concentration - - Weight 97.1 kg (214 lb) 01/12/2021 7:51 PM PARALEGAL ASSISTANT Height 172.7 cm (5' 8 ) 01/12/2021 7:51 PM PARALEGAL ASSISTANT Body Mass Index 32.54 01/12/2021 7:51 PM PARALEGAL ASSISTANT Plan of Treatment Health Maintenance Due Date Last Done Comments Cervical Cancer Screening Pa p Smear (Age 30 to 64) Every 3 Years 1991 Annual Physical 1994 Hepatitis C 2009 Hepatitis B Vaccines (1 of 3 - 19+ 3-dose series) 2010 Cervical Cancer Screening Pa p with HPV Testing (Age 30 to 64) Every 5 Years 2021 Cervical Cancer Screening wi th HPV 2021 COVID-19 Vaccine ( - 2023-2 5 season) 2024 Influenza Adult (#1) 2024 01/14/2021, 11/11/2018, 08/08/2016 DTaP, Tdap and Td Vaccines ( 2 - Td or Tdap) 06/07/2025 06/07/2015 Meningococcal Vaccine Aged Out 07/07/2008 No giuseppe elton eligible based on patient's age to complete this topic HPV Vaccines Aged Out No longer eligi ble based on patient's age to complete this topic Pneumococcal Vaccine: Pediatrics (0 to 5 Years) and At-Risk Patients (6 to 64 Years) Aged Out No longer eligible b ased on patient's age to complete this topic RSV Immunizations Under 20 Months Aged Out No longer eligible b ased on patient's age to complete this topic Insurance [facility] Advance Directives * Full Code (Latest Code Status on File) Date Activated Date Inactivated Comments 01/12/2021 8:05 PM 01/14/2021 10:05 PM Care Teams Bottle Feeder Relationship Specialty Start Date End Date New Referring, Provider PCP - General UNKNOWN PHYSICIAN SPECIALTY 01/09/21
--- OUTSIDE RECORDS SUMMARY | 2024-11-20 16:52 | XMS_ITS | Encounter Summary ---
Author Organization [facility] Address [address] [place] [address]. [place], [place] [address] [place] [address] Care Team Providers Care Strip Winder Name Role Phone New Referring, Provider Primary Care Provider Un available Encounter Details Date Type Department Care Team (Latest Contact Info) Description 01/12/2021 Travel Social History Tobacco Use Types Packs/Day Years [...] declined 01/12/2021 How often do you attend zoroastrianism or yarsanism serv ices? Patient declined 01/12/2021 Do you belong to any clubs o r organizations such as zoroastrianism groups, unions, fraternal or athletic groups, or [...] and heating? Not hard at all 01/12/2021 [facility] of Occupat ional Health - Occupational Stress [...] things needed for daily living? No 01/12/2021 Comments Yes Sex and Gender Information Value Date Recorded Sex Assigned at Not on file Legal Sex Female 12:55 PM OCCUPATIONAL THERAPIST HOME BASED Gender Identity Not on file Sexual Orientation Not on file COVID-19 Exposure Response Date Recorded In the last month, have you been in contact with someone who was confirmed or suspected to have Coronavirus / COVID-19? No / Unsure 01/12/2021 7:52 PM OCCUPATIONAL THERAPIST HOME BASED documented as of this encounter Functional Status documented as of this encounter Mental Status * Question Answer Entry Date Author Status Because of a physical, mental, or emotional condition, do you have serious difficulty concentrating, remembering, or making decisions? No 01/12/2021 8:53 PM Randi Valentine RN Active documented in this encounter Plan of Treatment Not on file documented as of this encounter Visit Diagnoses Not on filedocumented in this encounter Care Teams Strip Winder Relationship Specialty Start Date End Date New Referring, Provider PCP - General UNKNOWN PHYSICIAN SPECIALTY 01/09/21 documented as of this encounter
--- OUTSIDE RECORDS SUMMARY | 2024-11-20 16:52 | XMS_ITS | Encounter Summary ---
Author Organization [facility] Address [address] [place] [address]. [place] [address] [place] [address] Care Team Providers Care Purchasing Analyst Name Role Phone New Referring, Provider Primary Care Provider Un available Reason for Visit * Reason Comments rule out SROM * Auth/Cert Specialty Diagnoses / Procedures Referred By Contac t Referred To Contact Diagnoses (HHS/HCC) Referral ID Status Reason Start Date Expiration Date Visits Re quested Visits Authorized [id number] 1 1 Encounter Details Date Type Department Care Team (Latest Contact Info) Description 01/12/2021 7:33 PM PAGE TECHNICIAN - 01/14/2021 7:00 PM [facility] [[email or web address] Hospital Encounter [facility] [place], [place] [id number] Allison Yang MD [address] [place], [place] [id number] (rule out SROM) Discharge Disposition: Home or Self Care (Routine Discharge) Social History Tobacco Use Types Packs/Day Years [...] declined 01/12/2021 How often do you attend nondenominational or anabaptism serv ices? Patient declined 01/12/2021 Do you belong to any clubs o r organizations such as nondenominational groups, unions, fraternal or athletic groups, or [...] and heating? Not hard at all 01/12/2021 [facility] - [...] on file Legal Sex Female 12:55 PM PAGE TECHNICIAN Gender Identity Not on file Sexual Orientation Not on file COVID-19 Exposure Response Date Recorded In the last month, have you been in contact with someone who was confirmed or suspected to have Coronavirus / COVID-19? No / Unsure 01/12/2021 7:52 PM PAGE TECHNICIAN documented as of this encounter Last Filed Vital Signs Vital Sign Reading Time Taken Comments Blood Pressure 111/46 01/14/2021 7:30 AM PAGE TECHNICIAN Pulse 61 01/14/2021 7:30 AM PAGE TECHNICIAN Temperature 36.3 ??C (97.3 ??F) 01/14/2021 7:30 AM CS T Respiratory Rate 16 01/13/2021 8:00 PM PAGE TECHNICIAN Oxygen Saturation 99% 01/14/2021 7:30 AM PAGE TECHNICIAN Inhaled Oxygen Concentration - - Weight 97.1 kg (214 lb) 01/12/2021 7:51 PM PAGE TECHNICIAN Height 172.7 cm (5' 8 ) 01/12/2021 7:51 PM PAGE TECHNICIAN Body Mass Index 32.54 01/12/2021 7:51 PM PAGE TECHNICIAN documented in this encounter Functional Status * Question Answer Date of Assessment Author Status Do you have serious difficulty walking or climbing stairs? No 01/12/2021 8:53 PM PAGE TECHNICIAN Randi Mcaky RN Acti ve * Question Answer Date of Assessment Author Status Do you have difficulty dressing or bathing? No 01/12/2021 8:53 PM PAGE TECHNICIAN Randi Mckay RN Active Because of a physical, mental, or emotional condition, do you have difficulty doing errands alone such as visiting a doctor's office or shopping? No 01/12/2021 8:53 PM PAGE TECHNICIAN Freddy Mckay RN Active * RETIRED Are you deaf or do you have serious difficulty hearing Answer Date of Assessment Author Status No 01/12/2021 8:53 PM PAGE TECHNICIAN Activ e * RETIRED Are you blind or do you have serious difficulty seeing, even when wearing glasses? Answer Date of Assessment Author Status No 01/12/2021 8:53 PM PAGE TECHNICIAN Activ e * Do you have serious difficulty walking or climbing stairs? Answer Date of Assessment Author Status No 01/12/2021 8:53 PM PAGE TECHNICIAN Randi Mckay R N Active * Do you have difficulty dressing or bathing? Answer Date of Assessment Author Status No 01/12/2021 8:53 PM PAGE TECHNICIAN Randi Mckay R N Active * Because of a physical, mental, or emotional condition, do you have difficulty doing errands alone such as visiting a doctor's office or shopping? Answer Date of Assessment Author Status No 01/12/2021 8:53 PM PAGE TECHNICIAN Randi Mckay R N Active documented as of this encounter Mental Status * Question Answer Entry Date Author Status Because of a physical, mental, or emotional condition, do you have serious difficulty concentrating, remembering, or making decisions? No 01/12/2021 8:53 PM PAGE TECHNICIAN Randi Mckay RN Active * Because of a physical, mental, or emotional condition, do you have serious difficulty concentrating, remembering, or making decisions? Answer Entry Date Author Status No 01/12/2021 8:53 PM PAGE TECHNICIAN Randi Mckay R N Active documented in this encounter Discharge Summaries * Ella Bosch MD - 01/14/2021 5:30 PM CST Obstetrical Discharge Form Admit date: 01/12/2021 Admitting Physician: Allison Yang MD Indication for Admission: Patient was admitted for labor. /Para: EDC: Estimated Date of Delivery: 01/17/21 Gestational Age:39w4d Antepartum complications: see below Delivery Type: spontaneous vaginal delivery Date of : 01/13/2021 Time of : 8:54 AM Anesthesia: epidural Intrapartum complications: None Hospital Course: She underwent vaginal delivery without complication. Her course was uncomplicated. By PPD# 1 she was fully ambulatory, voiding without difficulty and her pain was controlled on po pain meds. She felt ready for discharge. Routine pp precautions and instructions were reviewed and all questions answered to her satisfaction. Discharge Exam: Abdomen: Tenderness:mild,Fundus: firm Labs: Recent Labs Lab 01/12/21 2105 01/14/21 0400 WBC 10.8 -- HGB 11.5* 10.8* PLT 142 -- No results for input(s): K, CR, GLU, AST, ALT in the last 168 hours. Blood type: A POSITIVE Discharge Diagnoses: s/p vaginal delivery Discharge Condition: Stable Discharge Date: 01/14/2021 Discharge Time: 5:30 PM Discharge Provider: ELLA BOSCH MD Assessment/Plan: 30-year-old at 39w3d for Estimated Date of Delivery: 01/17/21 admitted to L&D for delivery. 1. Routine care 2. A pos/RI/GBS neg 3. Baby girl in room, doing well Discharge Meds: Medication List START taking these medications docusate sodium 100 MG capsule Commonly known as: Colace Take 1 capsule (100 mg total) by mouth 2 (two) times daily as needed for Constipation. ibuprofen 800 MG tablet Commonly known as: MOTRIN Take 1 tablet (800 mg total) by mouth every 8 (eight) hours as needed for Pain. CONTINUE taking these medications vitamin with iron 27-0.8 MG tablet Where to Get Your Medications These medications were sent to [id number] - [address] AT [place] [address]) & [address] [id number] ?? docusate sodium 100 MG capsule ?? ibuprofen 800 MG tablet ELLA BOSCH MD TECHNICIAN documented in this encounter Discharge Instructions * Discharge Instructions* Ella Bosch MD - 01/14/2021 5:28 PM PAGE TECHNICIAN We understand this can sometimes be an overwhelming time for you, your partner and your family. Below are some guidelines to help you address questions or concerns about caring for yourself. 1) Do not drive for the first 2 weeks or if you are taking narcotic pain medications. 2) No intercourse or tampons for 6 weeks. Never douche. 3) No baths, hot tubs or swimming for 6 weeks. Showering is ok. 4) No heavy lifting greater than 10 pounds 5) Stair climbing is ok if you are not experiencing lightheadedness. DO NOT carry anything while stair climbing, including your baby. 6) If you experience any of the following, contact your healthcare provider right away: Bleeding greater than one pad per hour for 2-3 hours. Foul odor coming from your vagina. Fever 100.4 degrees or higher. Severe headache Vision problems Right upper abdominal pain Unrelieved incisional or abdominal pain. Swelling, redness, discharge or bleeding from your incision. Your incision begins to separate. Painful urination No bowel movement within 4 days of giving . Pain or redness in one or both of your breasts. Pain, increased or unequal warmth, tenderness or swelling in your legs,especially the calf area. Frequent nausea and vomiting. Baby blues that last longer than 2 weeks. Chest pain or problems breathing, call 911. Follow up: Vaginal Delivery Follow up: 2 weeks Section Follow up: 1-2 weeks. Special Follow-Up Information: If you had high blood pressure or pre-eclampsia during , you should return to the clinic for a blood pressure check 48-72 hours after delivery and again 7-10days after delivery. If you have a NIMA wound system in place, follow up in 1 week. NIMA wound system will stop working after 7 days. If you have questions or concerns please contact your provider or the hospital. TECHNICIAN * Attachments The following attachments cannot be sent through Care Everywhere. * Vaginal Delivery Discharge Instructions (Chilean) * [facility] (Chilean) documented in this encounter Medications at Time of Discharge docusate sodium (COLACE) 100 MG capsule Take 1 capsule (100 mg total) by mouth 2 (two) times daily as needed for Constipation. 14 capsule 01/14/2021 ibuprofen 800 MG tablet Take 1 tablet (800 mg total) by mouth every 8 (eight) hours as needed for Pain. 30 tablet 01/14/2021 vitamin, low iron, ( VITAMIN WITH IRON) 27-0.8 MG tablet Take 1 tablet by mouth daily. documented as of this encounter Progress Notes * Ella Bosch MD - 01/14/2021 12:42 PM CSTSummary: Progress Note Subjective: Patient is doing well. Pain controlled. Ambulating and voiding well. Normal lochia. Objective: Filed Vitals: 01/13/21 1047 01/13/21 1352 01/13/21 2000 01/14/21 0730 BP: 116/59 110/47 111/67 111/46 Pulse: 70 64 72 61 Resp: 16 Temp: 98.2 ??F (36.8 ??C) 98.4 ??F (36.9 ??C) 97.3 ??F (36.3 ??C) TempSrc: Oral Oral SpO2: 99% 99% Weight: Height: Abdomen: Tenderness:mild,Fundus: firm, below umbilicus Extremities: nontender, no edema Recent Labs Lab 01/12/21 2105 01/14/21 0400 HGB 11.5* 10.8* No results for input(s): NA, K, CL, CO2, AGAP, BUN, CR, BUNCREATININ, GFRNON, GFR, GLU, CA, TP, ALB, TBIL, ALKP, AST, ALT in the last 168 hours. A/P: 30-year-old at 39w3d for Estimated Date of Delivery: 01/17/21 admitted to L&D for delivery. 1. Routine care 2. A pos/RI/GBS neg 3. Baby girl in room, doing well TECHNICIAN documented in this encounter H&P Notes * Allison Yang MD - 01/13/2021 6:38 AM CST HPI: ?? Erika Childs is a 30-year-old at 39w3d for Estimated Date of Delivery: 01/17/21 admittedto L&D for delivery secondary to rupture of membranes at term. On arrival, the patient had complained of leakage of fluid since 430pm. Notes increased irregular contractions. Denies any vaginal bleeding. Positive movement. ? History reviewed. No pertinent past medical history. Past Surgical History: Procedure Laterality Date ??? ACHILLES TENDON REPAIR ??? APPENDECTOMY 2010 ??? KIDNEY SURGERY 2 kidneys on R side, blood supply cut off ureter, R dimembered pyloplasty ??? KNEE SURGERY Right 2015, 2017 OB History Para Term AB Living 2 1 SAB TAB Ectopic Molar Multiple Live Births # Outcome Date GA Lbr Betito/2nd Weight Sex Delivery Anes PTL Lv 2 Current 1 AB 2011 ELECTIVE AB Family History Problem Relation Name Age of Onset ??? No Known Problems Mother ??? No Known Problems Father ??? No Known Problems Sister ??? No Known Problems Brother ??? No Known Problems Maternal Grandmother ??? No Known Problems Maternal Grandfather ??? No Known Problems Paternal Grandmother ??? Other (cancer) Paternal Grandfather Social History Socioeconomic History ??? Marital status: Single Spouse name: Not on file ??? Number of children: Not on file ??? Years of education: Not on file ??? Highest education level: Not on file Occupational History ??? Not on file Social Needs ??? Financial resource strain: Not hard at all ??? Food insecurity Worry: Never true Inability: Never true ??? Transportation needs Medical: No Non-medical: No Tobacco Use ??? Smoking status: Former Smoker Types: Cigarettes, Electronic Cigarettes Quit date: 2018 Years since quittin.1 Substance and Sexual Activity ??? Alcohol use: Not Currently ??? Drug use: Never ??? Sexual activity: Yes Lifestyle ??? Physical activity Days per week: Patient refused Minutes per session: Patient refused ??? Stress: Patient refused Relationships ??? Social connections Talks on phone: Patient refused Gets together: Patient refused Attends anabaptism service: Patient refused Active member of club or organization: Patient refused Attends meetings of clubs or organizations: Patient refused Relationship status: Patient refused ??? Intimate partner violence Fear of current or ex partner: No Emotionally abused: No Physically abused: No Forced sexual activity: No Other Topics Concern ??? Not on file Social History Narrative ??? Not on file Current Facility-Administered Medications: ??? acetaminophen (TYLENOL) tablet 650 mg, 650 mg, Oral, Q4H PRN, Allison Yang MD ??? butorphanol (STADOL) injection 1 mg, 1 mg, Intravenous, Q4H PRN, Allison Yang MD, 1 mg at 01/13/21 0020 ??? diphenhydrAMINE (BENADRYL) injection 25 mg, 25 mg, Intravenous, Once PRN, Clem Segura CRNA ??? famotidine (PEPCID) tablet 20 mg, 20 mg, Oral, Q12H PRN, Allison Yang MD ??? fentaNYL 2 mcg/mL-BUpivacaine 0.125 % 150 mL epidural, 12 mL/hr, Epidural, Continuous, CARLA Chen, Last Rate: 12 mL/hr at 01/13/21314, 12 mL/hr at 01/13/21314 ??? fentaNYL 2 mcg/mL-BUpivacaine 0.125 % 150 mL epidural, , , , ??? [START ON 01/15/2021] influenza virus vaccine (QUAD) injection 0.5 mL, 0.5 mL, Intramuscular, Once, Allison Yang MD ??? lactated ringers bolus infusion 1,000 mL, 1,000 mL, Intravenous, Once, Clem Segura CRNA ??? lactated ringers infusion, , Intravenous, PRN, Allison Yang MD, Last Rate: 125 mL/hr at 01/12/212218, New Bag at 01/12/212218 ??? dfrgjeeuk-zrsohusu-ajjftfukcxg (MYLANTA MAXIMUM STRENGTH) [id number] mg/30mL suspension, 10 mL, Oral, Q6H PRN, Allison Yang MD ??? naLOXone (NARCAN) injection 0.4 mg, 0.4 mg, Intravenous, PRN, Clem Seguar CRNA ??? ondansetron (ZOFRAN) injection 4 mg, 4 mg, Intravenous, Q8H PRN, Clme Segura CRNA ??? ondansetron (ZOFRAN-ODT) disintegrating tablet 8 mg, 8 mg, Oral, Q8H PRN, Allison Yang MD ??? oxytocin (PITOCIN) 30 units in NS 500 mL infusion, 0-300 mL/hr, Intravenous, PRN, Allison Yang MD ??? oxytocin (PITOCIN) 30 units in NS 500 mL infusion, 0-300 aj-units/min, Intravenous, PRN, Allison Yang MD, Last Rate: 12 mL/hr at 01/13/21 0430, 12 aj-units/min at 01/13/21 0430 Facility-Administered Medications Ordered in Other Encounters: ??? lidocaine (PF) (XYLOCAINE) 1 % injection, , , PRN, Clem Segura CRNA, 30 mg at 01/13/21 0302 ??? lidocaine-EPINEPHrine 1.5 %-[id number] injection, , , PRN, Clem Segura CRNA, 3 mL at 01/13/21 0303 Allergies as of 01/12/2021 ??? (No Known Allergies) ?? Review of Systems Constitutional: Negative for chills and fever. HENT: Negative for sore throat. Eyes: Negative for blurred vision. Respiratory: Negative for shortness of breath and wheezing. Cardiovascular: Negative for chest pain. Gastrointestinal: Positive for abdominal pain. Negative for nausea and vomiting. Neurological: Negative for dizziness and headaches. Psychiatric/Behavioral: The patient is not nervous/anxious. ?? Filed Vitals: 01/13/21 0624 01/13/21 0629 01/13/21 0630 01/13/21 0634 BP: 119/86 Pulse: 131 114 97 114 Resp: Temp: TempSrc: SpO2: Weight: Height: ?? Physical Exam Constitutional: Appearance: Normal appearance. Genitourinary: Genitourinary Comments: Grossly ruptured, per nursing cvx 4 HENT: Head: Normocephalic and atraumatic. Eyes: Extraocular Movements: Extraocular movements intact. Neck: Musculoskeletal: Normal range of motion. Cardiovascular: Rate and Rhythm: Normal rate and regular rhythm. Heart sounds: No murmur. Pulmonary: Breath sounds: No wheezing. Abdominal: Tenderness: There is no abdominal tenderness. Comments: Gravid uterus Neurological: Mental Status: She is alert and oriented to person, place, and time. Skin: General: Skin is warm. Psychiatric: Mood and Affect: Mood normal. Vitals signs reviewed. Labs: Urine cx neg HIV/HBsAg/TPIgG NR Jacinta pos MBT A POSITIVE Abs neg 1hr GCT neg GBS neg Assessment & Plan: 30-year-old at 39w3d for Estimated Date of Delivery: 01/17/21 admitted to L&D for delivery. 1. Admit to L&D 2. Routine labs and vitals - labs reviewed above 3. Continuous maternal/ monitoring 4. GBS negative -IP PCN ppx not indicated 5. Labor augmentation -IUPC and FSE as indicated -Pitocin augmentation as indicated 6. Epidural if desired, notify anesthesia 7. Anticipate vaginal delivery. TECHNICIAN documented in this encounter Procedure Notes * Tricia Rose DO - 01/13/2021 9:40 AM CSTSummary: delivery summary Maxine Childs [[id number]] Labor Event Times Labor onset date/time: 01/13/21 035 Dilation complete date/time: 01/13/21 06 decision date/time: Labor Events labor?: No Cervical ripening date/time: Rupture date/time: 01/12/21 165 Rupture type: SROM Fluid color: Clear Fluid odor: No (odorless) Induction: None Augmentation: Oxytocin Labor complications: None Delivery (Maternal) Episiotomy: None Perineal lacerations: 2nd Repaired: Yes Labial laceration: left Repaired: Yes Vaginal laceration: No Cervical laceration: No Quantitative blood loss (mL): 500 Vaginal Sponge Counts Initial count personnel: ELISABET GOODRICH RN Initial count verified by: AZIZA TREVINO Final count personnel: ELISABET GOODRICH RN Final count verified by: AZIZA TREVINO Accurate final count?: Yes Presentation and Position Presentation: Vertex Pain Management Method: IV Narcotics, Epidural Delivery Providers Delivering clinician: Tricia Rose DO Provider Role Elisabet Goodrich, RILEY Primary RN Yanira Hurst, RILEY Labor Nurse Celine Phelps, faro dealer Nurse Aziza Trevino, PAGE TECHNICIAN Alvina Flores, faro dealer Nurse Delivery () Time head delivered: 01/13/2021 8:54 AM date/time: 01/13/21 0854 Now Delivery type: Vaginal, Spontaneous Forceps?: No Vacuum?: No Water ?: No Details: Skin to Skin Skin to skin initiated date/time: 01/13/2021 0910 Skin to skin with: Mother Cord Vessels: 3 Vessels Complications: None Cord blood disposition: Lab Gases sent?: Yes Resuscitation Method: None Suction: Bulb Syringe Measurements Weight: 8 lb 1.6 oz Length: 20.5 Head circumference: 35 cm Placenta Date/time: 01/13/2021 9:00 AM Removal: Spontaneous Appearance: Intact Disposition: discarded Third stage active managment performed: No Assessment Living status: Living Skin color: Heart rate: Reflex irritability: Muscle tone: Respiratory effort: Total: 1 Minute: 0 2 2 2 2 8 2 Minute 5 Minute: 1 2 2 2 2 9 10 Minute 15 Minute Apgars assigned by: ALVINA MERRILL RN Patient complete and +2 station successfully pushes to deliver a viable female , mouth and nose bulb suctioned, delayed cord clamped and cut. Placenta expressed, 3vc noted. Uterus creded, clinically firm, pitocin and cytotec (1000mcg) given with good hemostasis. Uterus, cervix, and vagina examined. Left labial laceration and second degree perineal repaired with 3-0 vicryl. EBL: 500ml, apgars: 8,9, weight: 8lbs, 1oz TRICIA ROSE DO TECHNICIAN documented in this encounter Plan of Treatment Not on file documented as of this encounter Procedures Procedure Name Priority Date/Time Associated Diagnosis Comments HEMOGLOBIN AND HEMATOCRIT Routine 01/14/2021 4:00 AM PAGE TECHNICIAN TYPE & SCREEN STAT 01/12/2021 9:05 PM PAGE TECHNICIAN ([facility]) CBC W/DIFF AUTOMATED STAT 01/12/2021 9:05 PM PAGE TECHNICIAN ([facility]) DRUG SCREEN RAPID STAT 01/12/2021 8:5 0 PM PAGE TECHNICIAN ([facility]) HC URINALYSIS AUTO W/O MICRO STAT 01/12/2021 8:50 PM PAGE TECHNICIAN ([facility]) PLACENTAL ALPHA MICROGLOBULIN-1 Routine 01/12/2021 ([facility]) CULTURE, GRP B STREP Routine 12/21/2020 HIV 1 ANTIGEN(S), WITH HIV-1 AND HIV-2 ANTIBODIES Routine 10/29/2020 OBSTETRIC PANEL Routine 10/29/2020 HIV 1 ANTIGEN(S), WITH HIV-1 AND HIV-2 ANTIBODIES Routine 06/13/2020 ANTIBODY SCREEN Routine 06/13/2020 ABO/RH Routine 06/13/2020 OBSTETRIC PANEL Routine 06/13/2020 documented in this encounter Results * (ABNORMAL) Hemoglobin and Hematocrit (01/14/2021 4:00 AM PAGE TECHNICIAN) HGB 10.8(L) 12.0 - 16.0 G/DL 01/14/2021 4:19 AM PAGE TECHNICIAN [facility] HCT 33.0(L) 38.0 - 48.0 % 01/14/2021 4:19 AM PAGE TECHNICIAN [facility] 01/14/2021 4:00 AM PAGE TECHNICIAN Allison Yang MD LABORATORY Final Result [facility] [address] [place] [address], * TYPE & SCREEN (01/12/2021 9:05 PM PAGE TECHNICIAN) ABO/RH A POSITIVE 01/12/2021 10:02 PM PAGE TECHNICIAN [facility] ANTIBODY SCREEN NEGATIVE 01/12/2021 10:02 PM PAGE TECHNICIAN [facility] SAMPLE EXPIRATION 01/15/2021,2 359 01/12/2021 10:02 PM PAGE TECHNICIAN [facility] 01/12/2021 9:05 PM PAGE TECHNICIAN Allison Yang MD BLOOD BANK TEST ORDERABLES Hilaria sb Result [facility] [address] [place] [address], * (ABNORMAL) CBC W/DIFF AUTOMATED (01/12/2021 9:05 PM PAGE TECHNICIAN) Pathologist [facility] WBC 10.8 4.5 - 11.0 x10'3/uL 01/12/2021 9:34 PM PAGE TECHNICIAN [facility] RBC 3.71(L) 4.20 - 5.40 x10'6/uL 01/12/2021 9:34 PM [facility] HGB 11.5(L) 12.0 - 16.0 G/DL 01/12/2021 9:34 PM PAGE TECHNICIAN [facility] HCT 34.3(L) 38.0 - 48.0 % 01/12/2021 9:34 PM [facility] MCV 92.5 81.0 - 99.0 FL 01/12/2021 9:34 PM [facility] MCH 31.0 27.0 - 31.0 PG 01/12/2021 9:34 PM PAGE TECHNICIAN [facility] MCHC 33.5 32.0 - 36.0 G/DL 01/12/2021 9:34 PM [facility] RDW 13.5 11.5 - 14.5 % 01/12/2021 9:34 PM [facility] PLT 142 130 - 400 x10'3/uL 01/12/2021 9:34 PM [facility] MPV 13.1(H) 9.3 - 12.2 FL 01/12/2021 9:34 PM [facility] DIFFERENTIAL TYPE AUTOMATED DIFFERENTIAL 01/12/2021 9:34 PM [facility] NEUTROPHILS % 61.8 % 01/12/2021 9:34 PM [facility] LYMPHOCYTES % 28.4 % 01/12/2021 9:34 PM [facility] MONOCYTES % 8.5 % 01/12/2021 9:34 PM [facility] EOSINOPHILS 0.6 % 01/12/2021 9:34 PM [facility] BASOPHILS 0.2 % 01/12/2021 9:34 PM [facility] IMMATURE GRANS % 0.5 % 01/12/20 9:34 PM [facility] ABS. NEUTROPHILS TOTAL 6.67 1.80 - 7.70 x10'3/uL 01/12/2021 9:34 PM [facility] ABS. LYMPHOCYTES 3.06 1.00 - 4.80 x10'3/uL 01/12/2021 9:34 PM [facility] ABS. MONOCYTES 0.92(H) 0.24 - 0.86 x10'3/uL 01/12/2021 9:34 PM [facility] ABS. EOSINOPHILS 0.07 0.04 - 0.36 x10'3/uL 01/12/2021 9:34 PM [facility] ABS. BASOPHILS 0.02 0.01 - 0.08 x10'3/uL 01/12/2021 9:34 PM [facility] ABS. IMMATURE GRANULOCYTES 0.05 0.00 - 0.49 x10'3/uL 01/12/2021 9:34 PM [facility] 01/12/2021 9:05 PM PAGE TECHNICIAN Allison Yang MD LABORATORY Final Result [facility] [address] [place] [address], * (ABNORMAL) URINALYSIS (01/12/2021 8:50 PM PAGE TECHNICIAN) SPECIMEN TYPE URINE CLEAN CATCH 01/12/2021 9:57 PM PAGE TECHNICIAN [facility] COLOR (U) YELLOW 01/12/2021 10:21 PM [facility] TRANSPARENCY CLEAR 01/12/2021 10:21 PM [facility] SPECIFIC GRAVITY (U) 1.024 1.001 - 1.030 01/12/2021 10:21 PM [facility] U PH 6.0 5.0 - 9.0 01/12/2021 10:21 PM [facility] LEUKOCYTES (U) NEGATIVE NEGATIVE 01/12/2021 10:21 PM [facility] NITRITES NEGATIVE NEGATIVE 01/12/2021 10:21 PM [facility] PROTEIN (U) 30(H) <30 MG/DL 01/12/2021 10:21 PM [facility] URINE GLUCOSE NORMAL NORMAL MG/DL 01/12/2021 10:21 PM [facility] KETONES MG/DL (U) NEGATIVE NEGATIVE MG/DL 01/12/2021 10:21 PM [facility] UROBILINOGEN NORMAL NORMAL MG/DL 01/12/2021 10:21 PM [facility] BILIRUBIN (U) NEGATIVE NEGATIVE MG/DL 01/12/2021 10:21 PM [facility] BLOOD (U) NEGATIVE NEGATIVE 01/12/2021 10:21 PM PAGE TECHNICIAN [facility] MUCUS RARE /LPF 01/12/2021 10:21 PM PAGE TECHNICIAN [facility] RBC/HPF 3 <6 /HPF 01/12/2021 10:21 PM PAGE TECHNICIAN [facility] CA OXALATE CRYSTALS MODERATE /HPF 01/12/2021 10:21 PM PAGE TECHNICIAN [facility] SQUAMOUS EPITHELIALS RARE /HPF 01/12/2021 10:21 PM PAGE TECHNICIAN [facility] URINE SPECIMEN OBTAINED BY CLEAN CATCH PROCEDURE / Unknown 01/12/2021 8:50 PM PAGE TECHNICIAN us Allison Yang MD URINE ORDERABLES Final Result [facility] [address] [place] [address], * DRUG SCREEN RAPID (01/12/2021 8:50 PM PAGE TECHNICIAN) AMPHETAMINE (U) NEGATIVE NEGATIVE 10:20 PM PAGE TECHNICIAN [facility] BARBITURATES SCREEN (U) NEGATIVE NEGATIVE 01/12/2021 10:20 PM [facility] BENZODIAZEPINES SCREEN (U) NEGATIVE NEGATIVE 01/12/2021 10:20 PM [facility] CANNABINOIDS SCREEN (U) NEGATIVE NEGATIVE 01/12/2021 10:20 PM PAGE TECHNICIAN [facility] COCAINE METABOLITES (U) NEGATIVE NEGATIVE 01/12/2021 10:20 PM [facility] METHADONE (U) NEGATIVE NEGATIVE 01/12/2021 10:20 PM [facility] OPIATE SCREEN (U) NEGATIVE NEGATIVE 021 10:20 PM [facility] PHENCYCLIDINE PCP (U) NEGATIVE NEGATIVE 01/12/2021 10:20 PM PAGE TECHNICIAN [facility] Comment: NOTE: RESULTS OF THIS DRUG SCREEN SHOULD BE USED FOR MEDICAL PURPOSES ONLY AND NOT FOR LEGAL OR EMPLOYMENT PURPOSES. POSITIVE RESULTS ARE NOT CONFIRMED. MEDICATIONS CONTAINING EPHEDRINE MAY CAUSE FALSE POSITIVE AMPHETAMINE CALL , LAB, TO REQUEST CONFIRMATION TESTING. IF CREATININE IS <40 mg/dL. ??RECOLLECTION IS SUGGESTED. AMPHETAMINE- ?500 NG/ML BARBITURATE- ?200 NG/ML BENZODIAZEPINES- ??200 NG/ML THC- ? 50 NG/ML COCAINE- ?150 NG/ML METHADONE- ?300 NG/ML OPIATE- ? 300 MG/ML PCP- ? 25 NG/ML CREATININE (U) 167.0 28 - 217 MG/DL 01/12/2021 10:20 PM PAGE TECHNICIAN [facility] Urine specimen (specimen) URINE SPECIMEN / Unknown 01/12/2021 8:50 PM PAGE TECHNICIAN Allison Yang MD URINE ORDERABLES Final Result [facility] [address] [place] [address], * (ABNORMAL) PLACENTAL ALPHA MICROGLOBULIN-1 (aka ROM) (01/12/2021) lot number [id number] KIT EXPIRATION DATE 03/22/2023 Internal Control: VALID VALID RUPTURE OF MEMBRANES Positive NEGATIVE VAGINAL STRUCTURE / Unknown 01/12/2021 Allison Yang MD BODY FLUIDS AND STOOLS ORDERABL ES Final Result * CULTURE, GRP B STREP (12/21/2020) CULTURE GBS negative Doc [facility] MICROBIOLOGY - GENERAL ORDER NERY Final Result * OBSTETRIC PANEL (10/29/2020) SYPHILIS IGG AB non-reacti ve [facility] LABORATORY Final Result * HIV 1 ANTIGEN(S), WITH HIV-1 AND HIV-2 ANTIBODIES (10/29/2020) HIV 1/2 AB+ HIV1 P24 AG non-reacti ve [facility] Final Result * OBSTETRIC PANEL (06/13/2020) HGB 13.1 HCT 40.4 HEPATITIS B SURFACE AG non-reactiv e RUBELLA IGG AB immune SYPHILIS IGG AB non-reactiv e [facility] Final Result * HIV 1 ANTIGEN(S), WITH HIV-1 AND HIV-2 ANTIBODIES (06/13/2020) HIV 1/2 AB+ HIV1 P24 AG non-reacti ve [facility] Final Result * Antibody screen (06/13/2020) ANTIBODY SCREEN non-reacti ve Blood specimen (specimen) [facility] BLOOD BANK TEST ORDERABLES F inal Result * ABO/Rh (06/13/2020) Pathologist [facility] ABO/RH A+ Blood specimen (specimen) [facility] BLOOD BANK TEST ORDERABLES F inal Result documented in this encounter Visit Diagnoses Diagnosis (HHS/HCC)- Primary state, incidental Encounter for supervision of other normal in third trimester (HHS/HCC) documented in this encounter Administered Medications Inactive Administered Medications - up to 3 most recent administrations Medication Order MAR Action Action Date Dose Rate Site acetaminophen (TYLENOL) tablet 650 mg 650 mg, Oral, Every 4 hours PRN, Mild pain (Scale 1 - 3), Starting on 01/13/21 at 0942, Until 01/14/21 at 2200, Maximum dose of acetaminophen is 4000 mg from all sources in 24 hours. Given 01/14/2021 9:30 AM PAGE TECHNICIAN 650 mg butorphanol (STADOL) injection 1 mg 1 mg, Intravenous, Every 4 hours PRN, Moderate pain (Scale 4 - 7), Starting on 01/12/21 at 2003, Until 01/13/21 at 0942Indications: ([facility]HS/[facility]) Given 01/13/2021 12:20 AM PAGE TECHNICIAN 1 mg diphenhydrAMINE (BENADRYL) 12.5 MG/5ML elixir 25 mg 25 mg, Oral, Every 6 hours PRN, Itching, Starting on 01/13/21 at 0942, Until 01/14/21 at 2200, Give if unable to swallow tablets/capsules or if patient prefers liquid. diphenhydrAMINE (BENADRYL) capsule 25 mg 25 mg, Oral, Every 6 hours PRN, Itching, Starting on 01/13/21 at 0942, Until 01/14/21 at 2200 diphenhydrAMINE (BENADRYL) injection 25 mg 25 mg, Intravenous, Every 6 hours PRN, Itching, Starting on 01/13/21 at 0942, Until 01/14/21 at 2200, Give if unable to take PO. For IV administration, give no faster than 25 mg/min. docusate sodium (COLACE) capsule 100 mg 100 mg, Oral, Every 12 hours scheduled, First dose on 01/13/21 at 1000, Until Discontinued Given 01/14/2021 9:20 AM PAGE TECHNICIAN 100 mg Given 01/13/2021 9:50 PM PAGE TECHNICIAN 100 mg Given 01/13/2021 12:13 PM PAGE TECHNICIAN 100 mg HYDROcodone-acetaminophen (NORCO) 5-325 MG tablet 1 tablet 1 tablet, Oral, Every 4 hours PRN, Moderate pain (Scale 4 - 7), Starting on 01/13/21 at 0942, Until 01/14/21 at 2200, Maximum dose of acetaminophen is 4000 mg from all sources in 24 hours. Given 01/13/2021 9:50 PM PAGE TECHNICIAN 1 tabl et ibuprofen (MOTRIN) tablet 600 mg 600 mg, Oral, Every 6 hours PRN, Mild pain (Scale 1 - 3), Cramping, Starting on 01/13/21 at 0942, Until 01/14/21 at 2200, Do not order ibuprofen and Vicoprofen (hydrocodone/ibuprofen) together. Given 01/14/2021 11:32 AM PAGE TECHNICIAN 600 mg Given 01/14/2021 4:00 AM PAGE TECHNICIAN 600 mg Given 01/13/2021 6:21 PM PAGE TECHNICIAN 600 mg lactated ringers infusion at 125 mL/hr, Intravenous, PRN, as needed, Starting on 01/12/21 at 2002, Until 01/13/21 at 0942, For all patients in active labor with non-vertex presentation, multiple gestation, previous , persistent non-reassuring FHR, Hx post- hemorrhage, active phase longer than 8 hrs and/or patient desires an epidural.Indications:Preg viviana (HHS/[facility]) New Bag 01/12/2021 10:19 PM PAGE TECHNICIAN 125 mL/hr methylergonovine (METHERGINE) 0.2 MG/ML injection 1 dose, Starting on 01/13/21 at 0901, Until Thu01/13/21 at 0903, Created by cabinet override methylergonovine (METHERGINE) injection 0.2 mg 0.2 mg, Intramuscular, Once, 1 dose, On 01/13/21 at 0930, HAZARDOUS MEDICATION Given 01/13/2021 9:03 AM PAGE TECHNICIAN 0.2 mg miSOPROStol (CYTOTEC) 200 MCG tablet 1 dose, Starting on 01/13/21 at 0901, Until 01/13/21 at 0912, Created by cabinet override Given 01/13/2021 9:12 AM PAGE TECHNICIAN 1,000 mcg oxytocin (PITOCIN) 30 units in NS 500 mL infusion 0-300 aj-units/min (0-300 mL/hr), Intravenous, PRN, as needed, Starting on 01/12/21 at 2004, Until 01/13/21 at 0942, Start at 2 aj-unit/min. Increase by 2 aj-unit/min every 30 minutes until adequate contraction defined as 3-5 contractions in 10 minutes or cervical change occurs. Max dose of 30 aj-units/min. Notify provider when dose has reached 20 aj-unit/min. RN to adjust dose based upon maternal and/or response. If uterine tachysystole occurs with reassuring FHR:, -Decrease oxytocin rate by half -If tachysystole does not resolve within 15 minutes after initial intervention, stop oxytocin infusion and notify provider If uterine tachysystole occurs when the FHR is NOT reassuring: -Stop the oxytocin infusion. -Follow guidelines below for resumption of oxytocin when tachysystole resolved: If oxytocin is stopped due to tachysystole for less than 30 minutes resume oxytocin at half the rate at time it was stopped. If oxytocin is stopped due to tachysystole for longer than 30 minutes resume oxytocin at the initial ordered dose. If stopped for less than 30 minutes resume at half the rate at time it was stopped If stopped for more than 30 minutes resume at the initial dose ordered. Following delivery infuse any remaining oxytocin at 300ml/hr (300 aj-units/min) for the fist hour, then decrease to 60 ml/r (60 aj-units/min) for the 2nd hour. Continue this rate until the fundus is firm or the patient has completed her recovery phase. HAZARDOUS MEDICATION HAZARDOUS MEDICATIONIndications:Pre gnancy ([facility]) Rate/Dose Change 01/13/2021 4:30 AM PAGE TECHNICIAN 12 aj-units/min 12 mL/hr Rate/Dose Change 01/13/2021 1:11 AM PAGE TECHNICIAN 10 aj-units/min 10 mL/hr Rate/Dose Change 01/13/2021 12:38 AM PAGE TECHNICIAN 8 aj-units/min 8 mL/hr documented in this encounter Active and Recently Administered Medications Times are shown in PAGE TECHNICIAN. Scheduled Medication Order 01/12/2021 01/13/2021 01/14/2021 docusate sodium (COLACE) capsule 100 mg 100 mg, Oral, Every 12 hours scheduled, First dose on 01/13/21 at 1000, Until Discontinued 1213 (Given - Provider: Elisabet Goodrich RN)2150 (Given - Provider: Loni Claudio RN) 0920 (Given - Provider: Lizz Mooney RN)2100 (Canceled Entry - Provider: Automatic Discharge Provider - Comment: Automatically canceled at discontinue of medication order) methylergonovine (METHERGINE) injection 0.2 mg (COMPLETED) 0.2 mg, Intramuscular, Once, 1 dose, On 2/21/21 at 0930, HAZARDOUS MEDICATION 0903 (Given - Provider: Elisabet Goodrich RN) Continuous Medication Order 01/12/2021 01/13/2021 01/14/2021 fentaNYL 2 mcg/mL-BUpivacaine 0.125 % 150 mL epidural (CANCELED) 12 mL/hr, Epidural, Continuous, Starting on 01/12/21 at 2300, Until 01/13/21 at 0942, Continuous Epidural Infusion with Patient Controlled Epidural Analgesia (PCEA) BASAL INFUSION RATE: 12 mL/hr PCEA DEMAND DOSE: 7mL LOCKOUT INTERVAL: 30 minutes MAX DOSE LOCKOUT: 112mL / 4 hours 0315 (New Bag - Provider: Clem Segura CRNA - Comment: 2ml loading dose via pump. )0854 (Infusion Stop Time - Provider: Elías Pringle CRNA) PRN Medication Order 01/12/2021 01/13/2021 01/14/2021 acetaminophen (TYLENOL) tablet 650 mg 650 mg, Oral, Every 4 hours PRN, Mild pain (Scale 1 - 3), Starting on 01/13/21 at 0942, Until 01/14/21 at 2200, Maximum dose of acetaminophen is 4000 mg from all sources in 24 hours. 0930 (Given - Provider: Lizz Mooney RN) benzocaine-menthol (DERMOPLAST) 20-0.5 % topical spray 1 spray 1 spray, Topical, 4 times daily PRN, Pain, Perineal discomfort, Starting on 01/13/21 at 0942, Until 01/14/21 at 2200, Do NOT recommend use for pain in infants & children under 2 years. butorphanol (STADOL) injection 1 mg (CANCELED) 1 mg, Intravenous, Every 4 hours PRN, Moderate pain (Scale 4 - 7), Starting on 01/12/21 at 2003, Until 01/13/21 at 0942 0020 (Given - Provider: Randi Mckay RN) diphenhydrAMINE (BENADRYL) 12.5 MG/5ML elixir 25 mg(Linked Group 1) 25 mg, Oral, Every 6 hours PRN, Itching, Starting on 01/13/21 at 0942, Until 01/14/21 at 2200, Give if unable to swallow tablets/capsules or if patient prefers liquid. diphenhydrAMINE (BENADRYL) capsule 25 mg(Linked Group 1) 25 mg, Oral, Every 6 hours PRN, Itching, Starting on 01/13/21 at 0942, Until 01/14/21 at 2200 diphenhydrAMINE (BENADRYL) injection 25 mg(Linked Group 1) 25 mg, Intravenous, Every 6 hours PRN, Itching, Starting on 01/13/21 at 0942, Until 01/14/21 at 2200, Give if unable to take PO. For IV administration, give no faster than 25 mg/min. HYDROcodone-acetaminophen (NORCO) 5-325 MG tablet 1 tablet 1 tablet, Oral, Every 4 hours PRN, Moderate pain (Scale 4 - 7), Starting on 01/13/21 at 0942, Until 01/14/21 at 2200, Maximum dose of acetaminophen is 4000 mg from all sources in 24 hours. 2149 (Given - Provider: Loni Claudio RN) ibuprofen (MOTRIN) tablet 600 mg 600 mg, Oral, Every 6 hours PRN, Mild pain (Scale 1 - 3), Cramping, Starting on 01/13/21 at 0942, Until 01/14/21 at 2200, Do not order ibuprofen and Vicoprofen (hydrocodone/ibuprofen) together. 1213 (Given - Provider: Elisabet Goodrich RN)1821 (Given - Provider: Elisabet Goodrich RN) 0400 (Given - Provider: Loni Claudio RN)1132 (Given - Provider: Lizz Mooney RN) lactated ringers infusion (CANCELED) at 125 mL/hr, Intravenous, PRN, as needed, Starting on 01/12/21 at 2003, Until 01/13/21 at 0942, For all patients in active labor with non-vertex presentation, multiple gestation, previous , persistent non-reassuring FHR, Hx post- hemorrhage, active phase longer than 8 hrs and/or patient desires an epidural. 2218 (New Bag - Provider: Randi Mckay RN) ondansetron (ZOFRAN) injection 4 mg 4 mg, Intravenous, Every 8 hours PRN, Nausea, Vomiting, Starting on 01/13/21 at 0942, Until 01/14/21 at 2200, Use IV if patient unable to take oral order for ondansetron. ondansetron (ZOFRAN-ODT) disintegrating tablet 8 mg 8 mg, Oral, Every 8 hours PRN, Nausea, Vomiting, Starting on 01/13/21 at 0942, Until 01/14/21 at 2200 oxytocin (PITOCIN) 30 units in NS 500 mL infusion (CANCELED) 0-300 aj-units/min (0-300 mL/hr), Intravenous, PRN, as needed, Starting on 01/12/21 at 2005, Until 01/13/21 at 0942, Start at 2 aj-unit/min. Increase by 2 aj-unit/min every 30 minutes until adequate contraction defined as 3-5 contractions in 10 minutes or cervical change occurs. Max dose of 30 aj-units/min. Notify provider when dose has reached 20 aj-unit/min. RN to adjust dose based upon maternal and/or response. If uterine tachysystole occurs with reassuring FHR:, -Decrease oxytocin rate by half -If tachysystole does not resolve within 15 minutes after initial intervention, stop oxytocin infusion and notify provider If uterine tachysystole occurs when the FHR is NOT reassuring: -Stop the oxytocin infusion. -Follow guidelines below for resumption of oxytocin when tachysystole resolved: If oxytocin is stopped due to tachysystole for less than 30 minutes resume oxytocin at half the rate at time it was stopped. If oxytocin is stopped due to tachysystole for longer than 30 minutes resume oxytocin at the initial ordered dose. If stopped for less than 30 minutes resume at half the rate at time it was stopped If stopped for more than 30 minutes resume at the initial dose ordered. Following delivery infuse any remaining oxytocin at 300ml/hr (300 aj-units/min) for the fist hour, then decrease to 60 ml/r (60 aj-units/min) for the 2nd hour. Continue this rate until the fundus is firm or the patient has completed her recovery phase. HAZARDOUS MEDICATION HAZARDOUS MEDICATION 2765 (New Bag - Provider: Randi Mckay RN)2251 (Rate/Dose Change - Provider: Randi Mckay RN)2340 (Rate/Dose Change - Provider: Randi Mckay RN) 0038 (Rate/Dose Change - Provider: Randi Mckay RN)0111 (Rate/Dose Change - Provider: Randi Mckay RN)0430 (Rate/Dose Change - Provider: Randi Mckay RN) No Frequency Medication Order 01/12/2021 01/13/2021 01/14/2021 miSOPROStol (CYTOTEC) 200 MCG tablet (COMPLETED) 1 dose, Starting on 01/13/21 at 0901, Until 01/13/21 at 0912, Created by cabinet override 911 (Given - Provider: Elisabet Goodrich RN) Linked Groups Order Group 1: diphenhydrAMINE (BENADRYL) injection 25 mgJump to med 25 mg, Intravenous, Every 6 hours PRN, Itching, Starting on 01/13/21 at 0942, Until 01/14/21 at 2200, Give if unable to take PO. For IV administration, give no faster than 25 mg/min. Or diphenhydrAMINE (BENADRYL) capsule 25 mgJump to med 25 mg, Oral, Every 6 hours PRN, Itching, Starting on 01/13/21 at 0942, Until 01/14/21 at 2200 Or diphenhydrAMINE (BENADRYL) 12.5 MG/5ML elixir 25 mgJump to med 25 mg, Oral, Every 6 hours PRN, Itching, Starting on 01/13/21 at 0942, Until 01/14/21 at 2200, Give if unable to swallow tablets/capsules or if patient prefers liquid. documented in this encounter Care Teams Purchasing Analyst Relationship Specialty Start Date End Date New Referring, Provider PCP - General UNKNOWN PHYSICIAN SPECIALTY 01/09/21 documented as of this encounter
--- OUTSIDE RECORDS SUMMARY | 2024-11-20 16:53 | XMS_ITS | Encounter Summary ---
Author Organization [facility] Address [address] [place] [address] Phone Care Team Providers Care Gas Tester Name Role Phone Below, Kiel Reed MD Unavailable [phone] Elba Velazquez MD Primary Care Provider [phone] Torey Saleh [facility] Unavailable Unavailable Kalli Lopez APRN, DRUMS TEACHER Unavailable Encounter Details Date Type Department Care Team (Late st Contact Info) Description 06/05/2022 Refill [facility] Psychiatry & Psychology [address], [place] [id number] Kalli Lopez APRN, DRUMS TEACHER [address], [place] [id number] Social History Tobacco Use Types Packs/Day Years Used Date Smoking Tobacco: Every Day Smokeless Tobacco: Never Comments:uses e cig - 45 mg nicotine Alcohol Use Standard Drinks/Week Comments Yes 0.8 (1 standard drink = 0.6 oz p ure alcohol) occ drinker PHQ-2 Answer Date Recorded PHQ-2 Score 18 08/03/2019 Comments Yes Sex and Gender Information Value Date Recorded Sex Assigned at Not on file Legal Sex Female 3:08 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 clonazePAM (KlonoPIN) 0.5 MG Tablet 90 Tablet 0 Sig: Take 1 Tablet by mouth 3 times daily as needed for Anxiety. To start 06-06-2022 CORI: 04/18/2022 NOV: 07/14/2022 w PARRISH Mahan Last ordered: 05/07/2022 # 90 RF 0 Last filled per [place] PDMP: 05/07/2022 - pended to start 06/06/2022 Chart checked for accuracy. Medication pended and routed for review. * Telephone Encounter - Elisabet Calderon RN - 06/05/2022 10:59 AM CDT ----- Message from Yoli Mullins sent at 06/04/2022 4:21 PM CDT ----- Regarding: Refill Request Loni [phone] (home) PARRISH Mahan Requesting refill for Clonazepam to [facility] on [address] in [place]. NOV: documented in this encounter Plan of Treatment Not on file documented as of this encounter Visit Diagnoses Diagnosis Generalized anxiety disorder documented in this encounter Additional Health Concerns Assessment Noted Time PHQ-9 Depression Total Score: 18 019 1:00 PM CDT documented as of this encounter Care Teams Gas Tester Relationship Specialty Start Date End Date Elba Velazquez MD [address] [place] [address] PCP - General Internal Medicine 05/08/17 01/26/23 Kiel Zelaya MD [address] [facility] [place] [id number] Consulting Physician Orthopaedic Sports Medicine 09/08/16 Torey Saleh, [facility] [address] [place] [address] Behavioral Therapist Licensed Clinical Professional Counselor 03/25/18 Kalli Lopez APRN, DRUMS TEACHER [address] [facility] [place] [address] Nurse Practitioner Advanced Practice Nurse 04/17/22 documented as of this encounter
--- OUTSIDE RECORDS SUMMARY | 2024-11-20 16:53 | XMS_ITS | Encounter Summary ---
Author Organization [facility] Address [address] [place] [address] Phone Care Team Providers Care Industrial Seamstress Name Role Phone Below, Kiel Reed MD Unavailable [phone] Torey Saleh [facility] Unavailable Unavailable Kalli Lopez APRN, TRANSPORTATION SECURITY SCREENER Unavailable [phone] Reason for Visit * Reason Onset Date Comments Medication Refill 03/09/2023 Trazodone 100m g Encounter Details Date Type Department Care Team (Late Contact Info) Description 03/08/2023 [facility]ill [facility] Psychiatry & Psychology [address], [place] [id number] Kalli Lopez APRN, TRANSPORTATION SECURITY SCREENER [address] [place] [address] Medication Refill (Trazodone 100mg) Social History Tobacco Use Types Packs/Day Years Used Date Smoking Tobacco: Every Day Smokeless Tobacco: Never Comments:uses e cig - 45 mg nicotine Alcohol Use Standard Drinks/Week Comments Yes 0.8 (1 standard drink = 0.6 oz p ure alcohol) occ drinker PHQ-2 Answer Date Recorded PHQ-2 Score 18 08/03/2019 Comments No Sex and Gender Information Value Date Recorded Sex Assigned at Not on file Legal Sex Female 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 CORI: 12/08/2022 NOV: 06/08/2023 Last Ordered: 02/03/2023 30 tab 0 refills Medication pended and routed for review. documented in this encounter Plan of Treatment Not on file documented as of this encounter Visit Diagnoses Diagnosis Insomnia, unspecified type documented in this encounter Additional Health Concerns Assessment Noted Time PHQ-9 Depression Total Score: 18 019 1:00 PM CDT documented as of this encounter Care Teams Industrial Seamstress Relationship Specialty Start Date End Date Below, Kiel Reed MD [address] [place] [address] Consulting Physician Orthopaedic Sports Medicine 09/08/16 Torey Saleh [facility] [address] [place] [address] Behavioral Therapist Licensed Clinical Professional Counselor 03/25/18 Kalli Lopez APRN, TRANSPORTATION SECURITY SCREENER [address] [place], [place] [id number] Nurse Practitioner Advanced Practice Nurse 04/17/22 documented as of this encounter
--- OUTSIDE RECORDS SUMMARY | 2024-11-20 16:53 | XMS_ITS | Encounter Summary ---
Author Organization [facility] Care Team Providers Care Securities Analyst Name Role Phone Below, Kiel Reed MD Unavailable [phone] Elba Velazquez MD Primary Care Provider [phone] Torey Saleh [facility] Unavailable Unavailable Kalli Lopez APRN, RUDDY Unavailable [phone] Encounter Details Date Type Department Care Team (Latest Contact Info) Description 04/18/2022 Travel Social History Tobacco Use Types Packs/Day [...] on file Legal Sex Female 3:08 AM POLICY SPECIALIST Gender Identity Not on file Sexual Orientation Not on file COVID-19 Exposure Response Date Recorded In the last 10 days, have yo u been in contact with someone who was confirmed or suspected to have Coronavirus/COVID-19? Yes 04/18/2022 3:21 PM CDT documented as of this encounter Plan of Treatment Not on file documented as of this encounter Visit Diagnoses Not on filedocumented in this encounter Additional Health Concerns Infection Onset Date Last Indicated Resolved Time COVID - 19 Confirmed 04/18/2022 04/18/2022 022 12:16 AM CDT Assessment Noted Time PHQ-9 Depression Total Score: 18 019 1:00 PM CDT documented as of this encounter Care Teams Securities Analyst Relationship Specialty Start Date End Date Elba Velazquez MD [address] [place] [address] PCP - General Internal Medicine 05/08/17 01/26/23 Kiel Zelaya MD [address] [place] [address] Consulting Physician Orthopaedic Sports Medicine 09/08/16 Torey Saleh [facility] [address] [place] [address] Behavioral Therapist Licensed Clinical Professional Counselor 03/25/18 Kalli Lopez APRN, LUMBER STACKER [address] [facility] [place] [address] Nurse Practitioner Advanced Practice Nurse 04/17/22 documented as of this encounter
--- OUTSIDE RECORDS SUMMARY | 2024-11-20 16:53 | XMS_ITS | Encounter Summary ---
Author Organization [facility] Address [address] [place] [address] Phone Care Team Providers Care Chemical Analyst Name Role Phone Below, Kiel Reed MD Unavailable [phone] Elba Velazquez MD Primary Care Provider [phone] Torey Saleh [facility] Unavailable Unavailable Kalli Lopez APRN, LLAMA FARMER Unavailable Reason for Visit * Reason Comments Follow-up Adhd, bipolar, sad Encounter Details Date Type Department Care Team (Latest Contact Info) Description 07/24/2022 3:30 PM CDT Telemedicine [facility] [address] [place], [place] [address] Kalli Lopez APRN, LLAMA FARMER [address] [place], [place] [address] Generalized anxiety disorder (Primary Dx); Attention deficit hyperactivity disorder (ADHD), combined type; Bipolar disorder in remission (HCC) Social History Tobacco Use Types Packs/Day Years [...] on file 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 No / Unsure 07/24/2022 3:18 PM CDT documented as of this encounter Progress Notes * Kalli Lopez, NENA, LLAMA FARMER - 07/24/2022 3:30 PM CDT PSYCHIATRIC PROGRESS NOTE Date of Service: 07/24/2022 Chief Complaint: Chief Complaint Patient presents with ??? Follow-up Adhd, bipolar, sad Interval History: Patient seen. Patient reported doing okay. Mood is not great . Sad a lot. Current psychiatric symptoms: [x]- depressed mood, sad mood, crying spells [x]- low energy. [x]- Feeling of hopelessness, pessimistic [x]- Patient denied suicidal ideation. [x]- manic symptoms have been under control , denies any highs and tells me she does not believe there is any bipolar. Reports back in 2016 the hospital told me they did not believe I had bipolar . [x]- No psychotic symptoms. [x]- generalized anxiety, stressors cause more anxiety. Panic in the form of crying. Chest hurts, cries, feels altered and dizzy . [x]- Obsessive thoughts if has to do certain things. Would not tell me concrete things that cause thoughts or increased anxiety. [x]- normal sleep [x]- normal appetite [x]- No significant PTSD symptoms [x]- irritable at times. [x]- medications are helping with attention ??? Patient has been compliant with medications. Says she would consider and antidepressant. Explained to her that I need more information. Intention to harm self or others: no Side effects: no Medical issues: No acute medical issues.. Current stressors: cost of things, financies., work, taking care of child. Trauma of getting kicked out of doctorate program. Has not yet went to therapy. Mentions trying to get a new psychiatrist where she lives. PFSH: Social History Substance and Sexual Activity Alcohol Use Yes ??? Alcohol/week: 0.5 oz ??? Types: 1 Cans of beer per week Comment: occ drinker Social History Substance and Sexual Activity Drug Use No PMH: has a past medical history of ACL tear (09/16/2016), Acute medial meniscal tear, right, initial encounter (04/02/2018), ADHD (attention deficit hyperactivity disorder), combined type, Anxiety, Asthma, Bipolar 1 disorder, mixed (HCC), Panic attacks, Pyelonephritis, UPJ (ureteropelvic junction) ob struction, and URI (upper respiratory infection). She has no past medical history of Anesthesia complication, Difficult intubation, Malignant hyperthermia, PONV (postoperative nausea and vomiting), or Spinal headache. Review of Systems: Constitutional: No problems Musculoskeletal: No problems Neurological: No problems Mental Status Exam: Appearance: Dressed appropriately. Good hygiene and grooming. Poor eye contact. Orientation: AAOx4 Attitude: Evasive Psychomotor: Patient appeared in sounded calm during video appointment Speech: Decreased rate Thought Processes: Goal directed Affect: Constricted Mood: Sad Thought Content: No suicidal ideation, No homicidal ideation, No delusions elicited Perception: No signs of hallucinations, Denied hallucination Insight: Limited Judgment: Questionable Attention: Adequate Memory: Adequate Language: Intact Assessment and Plan: ICD-10-CM 1. Generalized anxiety disorder F41.1 2. Attention deficit hyperactivity disorder (ADHD), combined type F90.2 3. Bipolar disorder in remission (HCC) F31.70 ?? Condition: Patient seems to be stable. ?? Recommendations: Continue current medications. ?? Adderall 20 mg twice daily ?? Klonopin 0.5 mg 3 times daily. Patient states that she takes 1.5 mg only nightly to help her calm down to sleep. She does not take during the day hours. Takes her 2nd dose of Adderall around 10:30a.m. as she gets up around 5 to go to work. This is when she takes her 1st dose. ?? Encouraged patient to schedule a visit with me in person for one hour. Advised her we need to meet face to face for a full assessment. Discussing with Dr. Dinero also as he has seen her in the past. Patient asked for antidepressant but I declined as she is not on a mood stablizer with her bipolar disorder. Patient disagrees that she has bipolar. ?? See me again in 1 month. ?? Call with any questions, problems, concerns, or need sooner appointment. ?? Patient is capable of taking her own medications. ?? Supportive therapy provided. ?? Risks, benefits, and side effects of medications discussed. Discussed about alternatives and therisks of not receiving treatment. Patient verbalized understanding. ?? Emergency procedures discussed. Current Outpatient Medications: ??? amphetamine-dextroamphetamine (Adderall) 20 MG Tablet, Take 1 Tablet by mouth 2 times daily., Disp: 60 Tablet, Rfl: 0 ??? clonazePAM (KlonoPIN) 0.5 MG Tablet, Take 1 Tablet by mouth 3 times daily as needed for Anxiety., Disp: 90 Tablet, Rfl: 0 Labs: Labs below addressed by ordering provider Lab Results Component Value Date WBC 7.07 04/27/2019 RBC 4.23 04/27/2019 HEMOGLOBIN 13.0 04/27/2019 HEMATOCRIT 40.4 04/27/2019 MCV 95.5 04/27/2019 MCH 30.7 04/27/2019 MCHC 32.2 04/27/2019 PLATELETCNT 197 04/27/2019 RDW 12.2 04/27/2019 DIFF AUTOMATED 06/21/2013 LYMPHOCYTES 22.5 04/27/2019 RELEOS 1.4 04/27/2019 RELBAS 0.7 04/27/2019 ANC 4.64 04/27/2019 MONOCYTES 0.69 04/27/2019 EOSINOPHILS 0.10 04/27/2019 BASOPHILS 0.05 04/27/2019 Lab Results Component Value Date SODIUM 140 01/30/2020 POTASSIUM 3.7 01/30/2020 CHLORIDE 106 01/30/2020 CO2VEN 26 01/30/2020 ANIONGAP 8.0 01/30/2020 GLUCOSE 87 01/30/2020 BUN 10 01/30/2020 CREATININE 0.79 01/30/2020 TOTALPROTEIN 7.0 01/30/2020 TOTALPROTEIN 7.3 01/30/2020 ALBUMIN 4.8 01/30/2020 CALCIUM 9.6 01/30/2020 TBIL 0.5 01/30/2020 SGOTAST 14 01/30/2020 SGPTALT 16 01/30/2020 ALKALINEPHO 51 01/30/2020 GFRNA >60 01/30/2020 GFRA >60 01/30/2020 Lab Results Component Value Date TSH 4.284 10/24/2018 TPOAB <3 01/30/2020 Lab Results Component Value Date CHOLESTEROL 186 04/27/2019 TRIGLYCRIDES 102 04/27/2019 HDLCHOLESTE 48 04/27/2019 LDL 118 04/27/2019 Lab Results Component Value Date LITHIUM 0.4 (L) 04/25/2019 BY: Kalli Lopez APRN, CNP 07/24/2022 3:33 PM CDT documented in this encounter Plan of Treatment Not on file documented as of this encounter Visit Diagnoses Diagnosis Generalized anxiety disorder- Primary Attention deficit hyperactivity disorder (ADHD), combined type Bipolar disorder in remission (HCC) Bipolar disorder, unspecified documented in this encounter Additional Health Concerns Assessment Noted Time PHQ-9 Depression Total Score: 18 019 1:00 PM CDT documented as of this encounter Care Teams Chemical Analyst Relationship Specialty Start Date End Date Elba Velazquez MD [address] [place] [address] PCP - General Internal Medicine 05/08/17 01/26/23 Kiel Zelaya MD [address] [place] [address] Consulting Physician Orthopaedic Sports Medicine 09/08/16 Torey Saleh [facility] [address] [place] [address] Behavioral Therapist Licensed Clinical Professional Counselor 03/25/18 Kalli Lopez APRN, LLAMA FARMER [address] [facility] [place], [place] [address] Nurse Practitioner Advanced Practice Nurse 04/17/22 documented as of this encounter
--- OUTSIDE RECORDS SUMMARY | 2024-11-20 16:53 | XMS_ITS | Encounter Summary ---
Author Organization [facility] Address [address] [place] [address] Phone Care Team Providers Care Seasonal Greenery Bundler Name Role Phone Below, Kiel Reed MD Unavailable [phone] Elba Velazquez MD Primary Care Provider [phone] Torey Saleh [facility] Unavailable Unavailable Jose Nichols MD Unavailable [phone] Reason for Visit * Reason Onset Date Comments Medication Refill 03/12/2022 Adderall 20mg Encounter Details Date Type Department Care Team (Late st Contact Info) Description 03/12/2022 [place] [facility] [address] [place], [place] [id number] Jose Nichols MD [address] [place], [place] [address] Medication Refill (Adderall 20mg) Social History Tobacco Use Types Packs/Day Years [...] on file 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 amphetamine-dextroamphetamine (ADDERALL) 20 MG Tablet 60 Tablet 0 Sig: Take 1 Tablet by mouth 2 times daily. ??? amphetamine-dextroamphetamine (ADDERALL) 20 MG Tablet 60 Tablet 0 Sig: Take 1 Tablet by mouth 2 times daily. ??? amphetamine-dextroamphetamine (ADDERALL) 20 MG Tablet 60 Tablet 0 Sig: Take 1 Tablet by mouth 2 times daily. CORI: 12/13/[address] Nichols NOV: Visit date not found Last ordered: 02/11/2022 # 60 RF 0 - patient never picked up needs to change pharmacy. Script cancelled at [facility] 01/23/2022 Chart checked for accuracy. Medication pended and routed for review. * Telephone Encounter - Elisabet Calderon RN - 03/12/2022 2:38 PM CDT ----- Message from Yoli Mullins sent at 03/12/2022 2:14 PM CDT ----- Loni [phone] (home) Dr. Nichols Requesting refill for Adderall to [facility] in [place]. Patient is out of medication. NOV: Needs to call back to schedule. documented in this encounter Plan of Treatment Not on file documented as of this encounter Visit Diagnoses Diagnosis Attention deficit hyperactivity disorder (ADHD), combined type- Primary documented in this encounter Additional Health Concerns Assessment Noted Time PHQ-9 Depression Total Score: 18 019 1:00 PM CDT documented as of this encounter Care Teams Seasonal Greenery Bundler Relationship Specialty Start Date End Date Elba Velazquez MD [address] [facility] [address] [place] [address] PCP - General Internal Medicine 05/08/17 01/26/23 Below, Kiel Reed MD [address] [place] [address] Consulting Physician Orthopaedic Sports Medicine 09/08/16 Torey Saleh [facility] [address] [facility] [address] [place] [address] Behavioral Therapist Licensed Clinical Professional Counselor 03/25/18 Jose Nichols MD [address] [place] [address] Consulting Physician Psychiatry 08/23/21 04/16/22 documented as of this encounter
--- OUTSIDE RECORDS SUMMARY | 2024-11-20 16:53 | XMS_ITS | Encounter Summary ---
Author Organization [facility] Address [address] [place] [address] Phone Care Team Providers Care Manufacturers Representative Name Role Phone Below, Kiel Reed MD Unavailable [phone] Elba Velazquez MD Primary Care Provider [phone] Torey Saleh [facility] Unavailable Unavailable Kalli Lopez APRN, CLINICAL DOCUMENTATION NURSE Unavailable Reason for Visit * Reason Comments Follow-up ADHD and anxiety Encounter Details Date Type Department Care Team (Latest Contact Info) Description 04/18/2022 3:30 PM CDT Telemedicine [facility] [address] [place] [address] Kalli Lopez APRN, CLINICAL DOCUMENTATION NURSE [address] [place], [place] [id number] Attention deficit hyperactivity disorder (ADHD), combined type (Primary Dx); Generalized anxiety disorder; Bipolar disorder in remission (HCC) Social History [...] on file 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 Yes 04/18/2022 3:21 PM CDT documented as of this encounter Progress Notes * Kalli Lopez, NENA, CLINICAL DOCUMENTATION NURSE - 04/18/2022 3:30 PM CDT PSYCHIATRIC PROGRESS NOTE Date of Service: 04/18/2022 Chief Complaint: Chief Complaint Patient presents with ??? Follow-up ADHD and anxiety Patient was assessed via online video for a duration of 23 minutes. Patient verbally consented for this service to be performed and billed.The patient was at home. Interval History: Patient seen. Patient reported doing okay. [place] was treating patient for Bipolar disorder in remission, and anxiety and adhd. 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 Compliant. Current psychiatric symptoms: [x]- no significant problems with depressed mood [x]- low motivation. low energy. [x]- Feeling of hopelessness, Low self-esteem, Guilt feeling [x]- Patient denied suicidal ideation. [x]- No symptoms of garrett [x]- No psychotic symptoms. [x]- generalized anxiety , gets numb and tingly, gets feelings of passing out at times.[x]- hates being late to work, tries to be perfect. [x]- intermittent sleep, erratic sleep, 7 hours avg per night [x]- normal appetite [x]- No significant PTSD symptoms [x]- occasional outbursts. [x]- medications are helping with attention ??? Patient has been compliant with medications. Patient would like adjustments to medications. Patient no longer wants to take Geodon, doesn't find it helpful and not having any garrett or psychotic symptoms. Agreed to stop this for her and see how things go. . Intention to harm self or others: no Side effects: no Medical issues: No acute medical issues.. Current stressors: covid with family over the last week. 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 Vision over the last 6 months deteriorating. Reports getting MRI to rule out MS. Got kicked out of doctorate program. Stressors over 15 month old baby, not getting paid as much as she thinks she should be getting. 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 PFSH: Social History Substance and Sexual Activity [...] Appearance: Dressed appropriately. Good hygiene and grooming. Orientation: AAOx4 Attitude: Cooperative Psychomotor: Patient appeared and sounded calm during video appointment. Speech: Normal rate and rhythm Thought Processes: Goal directed Affect: Appropriate Mood: Anxious Thought Content: No suicidal ideation, No homicidal ideation, No delusions elicited Perception: No hallucination, Denied hallucination Insight: Adequate Judgment: Adequate Attention: Adequate Memory: Adequate Language: Intact Assessment and Plan: ICD-10-CM 1. Attention deficit hyperactivity disorder (ADHD), combined type F90.2 2. Generalized anxiety disorder F41.1 3. Bipolar disorder in remission (HCC) F31.70 ?? Condition: Patient seems to be stable. ?? Recommendations: Continue Adderall 20 mg twice daily. Continue clonazepam 0.5 mg 3 times daily as needed.. ?? See me again in 3 months. ?? Call with any questions, problems, concerns, or need sooner appointment. ?? Patient is capable of taking her own medications. ?? Supportive therapy provided. ?? Risks, benefits, and side effects of medications discussed. Discussed about alternatives and therisks of not receiving treatment. Patient verbalized understanding. ?? Emergency procedures discussed. Current Outpatient Medications: ??? amphetamine-dextroamphetamine (ADDERALL) 20 MG Tablet, Take 1 Tablet by mouth 2 times daily., Disp: 60 Tablet, Rfl: 0 ??? amphetamine-dextroamphetamine (ADDERALL) 20 MG Tablet, Take 1 Tablet by mouth 2 times daily., Disp: 60 Tablet, Rfl: 0 ??? [START ON 05/11/2022] amphetamine-dextroamphetamine (ADDERALL) 20 MG Tablet, Take 1 Tablet by mouth 2 times daily., Disp: 60 Tablet, Rfl: 0 ??? amphetamine-dextroamphetamine (ADDERALL) 20 MG Tablet, Take 1 Tablet by mouth 2 times daily., Disp: 60 Tablet, Rfl: 0 ??? amphetamine-dextroamphetamine (Adderall) 20 MG Tablet, Take 1 Tablet by mouth 2 times daily., Disp: 60 Tablet, Rfl: 0 ??? amphetamine-dextroamphetamine (Adderall) 20 MG Tablet, Take 1 Tablet by mouth 2 times daily., Disp: 60 Tablet, Rfl: 0 ??? clonazePAM (KlonoPIN) 0.5 MG Tablet, TAKE 1 TABLET BY MOUTH THREE TIMES DAILY NEEDED ANXIETY, Disp: 90 Tablet, Rfl: 0 ??? ziprasidone (Geodon) 20 MG Capsule, Take 1 Capsule by mouth daily (with dinner)., Disp: 30 Capsule, Rfl: 3 Labs: Labs below addressed by ordering provider [...] (L) 04/25/2019 BY: Kalli Lopez APRN, CNP 04/18/2022 3:49 PM CDT documented in this encounter Plan of Treatment Not on file documented as of this encounter Visit Diagnoses Diagnosis Attention deficit hyperactivity disorder (ADHD), combined type- Primary Generalized anxiety disorder Bipolar disorder in remission (HCC) Bipolar disorder, unspecified documented in this encounter Additional Health Concerns Infection Onset Date Last Indicated Resolved Time COVID - 19 Confirmed 04/18/2022 04/18/2022 022 12:16 AM CDT Assessment Noted Time PHQ-9 Depression Total Score: 18 019 1:00 PM CDT documented as of this encounter Care Teams Manufacturers Representative Relationship Specialty Start Date End Date Elba Velazquez MD [address] [place] [address] PCP - General Internal Medicine 05/08/17 01/26/23 Below, Kiel Reed MD [address] [facility], [place] [address] Consulting Physician Orthopaedic Sports Medicine 09/08/16 Torey Saleh, [facility] [address] [facility] [address] [place] [address] Behavioral Therapist Licensed Clinical Professional Counselor 03/25/18 Kalli Lopez APRN, CLINICAL DOCUMENTATION NURSE [address] [facility] [place] [id number] Nurse Practitioner Advanced Practice Nurse 04/17/22 documented as of this encounter
--- OUTSIDE RECORDS SUMMARY | 2024-11-20 16:53 | XMS_ITS | Clinical Summary ---
Author Organization [facility] Address [address] [place] [address] Phone Care Team Providers Care Caterer'S Aide Name Role Phone Below, Kiel Reed MD Unavailable [phone] Torey Saleh BRONC BUSTER Unavailable Unavailable Kalli Lopez APRN, SHEARING SHED HAND Unavailable Allergies Active Allergy Reactions Criticality Noted Date Comments Aripiprazole Nausea 12/08/2022 Medications amphetamine-dextro amphetamine (Adderall) 20 MG TabletIndications: Attention deficit hyperactivity disorder (ADHD), combined type Take 1 Tablet by mouth 2 times daily. 60 Tablet 3 Active amphetamine-dextro amphetamine (Adderall) 20 MG TabletIndications: Attention deficit hyperactivity disorder (ADHD), combined type Take 1 Tablet by mouth 2 times daily. 60 Tablet 3 Active amphetamine-dextro amphetamine (Adderall) 20 MG TabletIndications: Attention deficit hyperactivity disorder (ADHD), combined type Take 1 Tablet by mouth 2 times daily. 60 Tablet 3 Active traZODone (DESYREL) 100 MG TabletIndications: Insomnia, unspecified type Take 1 Tablet by mouth nightly. 90 Tablet 1 3 Active clonazePAM (KlonoPIN) 0.5 MG TabletIndications: Generalized anxiety disorder Take 1 Tablet by mouth 3 times daily as needed for Anxiety. 90 Tablet 3 Active Active Problems Problem Noted Date Diagnosed Date Bipolar disorder in remission 02/01/2021 Generalized anxiety disorder 06/21/2019 Bipolar I disorder, most recent episode hypomani c 10/26/2018 Acute medial meniscal tear, right, initial encou nter 04/02/2018 Complex tear of lateral meni scus of right knee as current injury 12/08/2016 Complex tear of lateral meni scus of left knee as current injury 09/22/2016 ACL tear 09/16/2016 Complex tear of medial meniscus as current injur y 09/08/2016 Complete tear of right ACL 09/08/2016 Back pain 08/21/2015 Alcohol abuse, episodic 07/08/2015 Bipolar 1 disorder, manic, full remission 2014 PTSD (post-traumatic stress disorder) 12/07/2014 Hematuria 10/31/2014 Attention deficit hyperactiv ity disorder (ADHD), combined type 06/06/2014 Anxiety 04/09/2013 Ganglion cyst of wrist 12/29/2011 Ureteropelvic junction obstruct, 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 (09/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): 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/2010 Resolved Problems Problem Noted Date Diagnosed Date Resolved Date Epigastric abdominal pain 10/25/2018 Attention deficit hyperactiv ity disorder (ADHD) 12/07/2014 07/08/2015 Depression 04/09/2013 07/08/2015 Appendicitis 08/27/2011 03/31/2012 Right flank pain 08/26/2011 03/31/2012 Abdominal pain, acute, right lower quadrant 08/26/2011 03/31/2012 Asthma 07/07/2008 03/31/2012 Immunizations Immunization Administration Dates Next Due Influenza Vaccine greater than 3 yrs 08/08/2016 PUR MENINGOCOCCAL IM 07/07/2008 PUR TDAP 7+ YRS IM 06/07/2015 TB Skin Test 06/25/2015 Family History Medical History Relation Name Comments Congestive Heart Failure Father Heart Attack Father Due to long ter m use of a bad medication Cancer Maternal Grandfather Melanom a, but developed in his 80s Cancer Paternal Aunt breast/Breast cancer, surviver, remission 10+ years Hypertension Neg Hx Kidney Stones Neg Hx Nocturnal Enuresis Neg Hx Renal Failure Neg Hx Urinary Tract Infections Neg Hx Relation Name Status Comments Brother Alive Father Alive Maternal Grandfather Mother Alive Paternal Aunt Sister Alive Social History Tobacco Use Types Packs/Day Years Used Date Smoking Tobacco: Every Day Smokeless Tobacco: Never Tobacco Cessation:Ready to Q uit: No; Counseling Given: No Comments:uses e cig - 45 mg nicotine Alcohol Use Standard Drinks/Week Comments Yes 0.8 (1 standard drink = 0.6 oz p ure alcohol) occ drinker PHQ-2 Answer Date Recorded PHQ-2 Score 18 08/03/2019 Comments No Sex and Gender Information Value Date Recorded Sex Assigned at Not on file Legal Sex Female 3:08 AM GASKET INSPECTOR Gender Identity Not on file Sexual Orientation Not on file Last Filed Vital Signs Vital Sign Reading Time Taken Comments Blood Pressure 120/60 12/08/2022 1:05 PM GASKET INSPECTOR Pulse 63 12/08/2022 1:05 PM GASKET INSPECTOR Temperature 36.9 ??C (98.5 ??F) 03/28/2019 3:22 PM CD T Respiratory Rate 16 01/30/2020 2:03 PM CDT Oxygen Saturation 100% 11/11/2018 11:24 AM GASKET INSPECTOR Inhaled Oxygen Concentration - - Weight 74.8 kg (165 lb) 12/08/2022 1:05 PM GASKET INSPECTOR Height 172.7 cm (5' 8 ) 12/08/2022 1:05 PM GASKET INSPECTOR Body Mass Index 25.09 12/08/2022 1:05 PM GASKET INSPECTOR Plan of Treatment Health Maintenance Due Date Last Done Comments Hepatitis C Virus (HCV) Screening 1991 Hepatitis B Immunization (1 of 3 - 19+ 3-dose series) 2010 Pneumococcal Immunization Combined (1 of 2 - PCV) 2010 Pap Smear 05/18/2022 05/18/2019, 04/25, 06/26/2014, Additional history exists Cervical Cancer Screening (CCS) 05/22/2022 HPV/Cotest 05/22/2022 05/22/2017 Influenza Immunization (#1) 07/24/2024/12/2020, 11/11/2018, 08/08/2016, Additional history exists SARS-COV-2 Immunization (4 - 2024-25 season) 2024 10/26/2021, 02/22/2021, 02/01/2021 Td Immunization Every 10 Years (Adults With 1 Tdap) 11/11/2025 11/11/2015, 06/07/2015 Respiratory Syncytial Virus (RSV) Immunization (Adult) (1 - 1-dose 75+ series) 2066 Meningococcal Immunization (ACWY) Completed 07/07/2008 Rotavirus Immunization Aged Out No lo nger eligible based on patient's age to complete this topic Medical Devices Implanted Type Area Client Support Analyst Device Identifier Shelf Expiration Date Model / Serial / Lot Scrw Intfr Bobby Shth 7x25mm Ti Strl - [id number] Implanted:Qty: 1 on 09/16/2016 by Kiel Zelaya MD at [facility] IMPLANT Right: Knee [employer] AR-[id number] / / [id number] Scr Intfr Bobby 8x20 Ti Strl - [id number] Implanted:Qty: 1 on 09/16/2016 by Kiel Zelaya MD at [facility] IMPLANT Right: Knee [employer] AR-[id number] / / [id number] Bi-Cortical Post Ti 4.5mmx37.5mm - [id number] Implanted:Qty: 1 on 09/16/2016 by Kiel Zelaya MD at [facility] IMPLANT Right: Knee [employer] AR-[id number] / / [id number] Procedures Procedure Name Priority Date/Time Associated Diagnosis Comments PATHOLOGY CYTOLOGY COMPENSATION VICE PRESIDENT Routine 05/18/2019 11:27 AM CDT Vaginal discharge HUMAN PAPILLOMA VIRUS (HPV) Routine 05/22/2017 11:00 AM CDT Encounter for screening for human papillomavirus (HPV) from Last 3 Months or Most Recently Relevant to Health Maintenance Results * PATHOLOGY CYTOLOGY COMPENSATION VICE PRESIDENT (05/18/2019 11:27 AM CDT) SPECIMEN ADEQUACY Satisfactory for evaluation. Endocervical/transf ormation zone component is present. 05/24/2019 10:51 AM CDT [facility] GENERAL CATEGORY NEGATIVE FOR INTRAEPITHELIAL LESIONS OR MALIGNANCY. 05/24/2019 10:51 AM [facility] DESCRIPTIVE DIAGNOSIS Reactive cellular changes associated with inflammation and repair. 05/24/2019 10:51 AM [facility] MATED EXAMINATION Analysis of this sample has been assisted by an automated imaging and review system ([employer] System, [employer], [place], [place]). This case is further evaluated and finalized by a antique jewelry repairer and/or pathologist. 05/24/2019 10:51 AM [facility] DISCLAIMER The PAP smear is a screening test designed to detect cancerous or precancerous cells of the uterine cervix. It is one of the best means available for detection of cervical cancer but still carries an inherent false-negative rate. The consequences of a false-negative PAP result can be minimized by adhering to current screening guidelines. The following are general guidelines recommended by the ACS, ASCP, ASCCP, and ACOG: PAP testing is recommended every three years for women 21-29, Co-Testing , a PAP test in conjunction with an HPV (Human Papillomavirus) test for women ages 30-65, and no PAP or HPV testing for women under the age of 21 or older than 65 unless clinically indicated. 05/24/2019 10:51 AM [facility] Case Report Gynecologic Cytology Report ? Case: [id number] ? Authorizing Provider: ??Elba Velazquez MD ?Collected: ? 05/18/2019 11:27 AM ? Ordering Location: ? [facility] ?Received: ?05/18/2019 11:27 AM ? INT MED ? First Screen: ?Reginaldo Oliva ? Pathologist: ? Vishnu Montoya MD ? Specimen: ?TP Screen, CERVIX/ENDOCERVIX/V AGINAL ? 05/24/2019 10:51 AM CDT [facility] HPV Reflex if ASCUS? Yes 05/24/2019 10:51 AM CDT [facility] Specimen of unknown material (specimen) (Cervix/Endocerv ix/Vaginal) Non-Phlebotomy Collection / Unknown 05/18/2019 11:27 AM CDT 05/18/2019 11:27 AM CDT us Elba Velazquez MD PATHOLOGY/CYTOLOGY ORDERABLE S Final Result [facility] [address] [place] [address], * HUMAN PAPILLOMA VIRUS (HPV) (05/22/2017 11:00 AM CDT) HPV OTHER HIGH RISK TYPES, PCR NEGATIVE NEGATIVE 05/27/2017 2:20 PM CDT [facility] Comment: The following Other High Risk types were not detected: 31, 33, 35, 39, 45, 51, 52, 56, 58, 59, 66, and 68. A negative high-risk HPV result does not exclude the possibility of future cytologic HSIL or underlying CIN2-3 or cancer. The presence of PCR inhibitors may cause false negative or invalid results. If concentrations of whole blood in the sample exceed 1.5% (dark red or brown coloration) in PreservCyt solution, there is a likelihood of obtaining a false-negative result. HPV TYPE 16 NEGATIVE NEGATIVE 05/27/2017 2:20 PM CDT [facility] Comment: A negative high-risk HPV result does not exclude the possibility of future cytologic HSIL or underlying CIN2-3 or cancer. The presence of PCR inhibitors may cause false negative or invalid results. If concentrations of whole blood in the sample exceed 1.5% (dark red or brown coloration) in PreservCyt solution, there is a likelihood of obtaining a false-negative result. HPV TYPE 18 NEGATIVE NEGATIVE 05/27/2017 2:20 PM CDT [facility] Comment: A negative high-risk HPV result does not exclude the possibility of future cytologic HSIL or underlying CIN2-3 or cancer. The presence of PCR inhibitors may cause false negative or invalid results. If concentrations of whole blood in the sample exceed 1.5% (dark red or brown coloration) in PreservCyt solution, there is a likelihood of obtaining a false-negative result. Specimen of unknown material (specimen) Non-Phlebotomy Collection / Unknown 05/22/2017 11:00 AM CDT 05/22/2017 11:00 AM CDT Narrative [facility] - 05/27/2017 2:20 PM CDT Performed by Real-Time Polymerase Chain Reaction (PCR) on the [address] SEND OUTS Final Result [facility] [address] [place] [address], [place] from Last 3 Months or Most Recently Relevant to Health Maintenance Insurance MEDICAID [place] [facility] Advance Directives * Full Code (Latest Code Status on File) Date Activated Date Inactivated Comments 10/25/2018 4:49 AM 10/27/2018 12:11 AM CPR-Full Tr eatment: FULL ARREST: Attempt Resuscitation/CPR wit intubation and mechanical ventilation. PRE-ARREST: Use entire range of life support measures to stabilize the patient. * Full Code Date Activated Date Inactivated Comments 08/26/2011 1:56 PM 03/27/2018 12:30 AM none * No Code Status Date Activated Date Inactivated Comments 10/15/2009 10:46 AM 08/26/2011 1:56 PM none Care Teams Caterer'S Aide Relationship Specialty Start Date End Date Below, Kiel Reed MD [address], [place] [id number] Consulting Physician Orthopaedic Sports Medicine 09/08/16 Torey Saleh [facility] [address] [place] [address] Behavioral Therapist Licensed Clinical Professional Counselor 03/25/18 Kalli Lopez APRN, SHEARING SHED HAND [address] [place] [address] Nurse Practitioner Advanced Practice Nurse 04/17/22
--- OUTSIDE RECORDS SUMMARY | 2024-11-20 16:53 | XMS_ITS | Encounter Summary ---
Author Organization [facility] Address [address] [place] [address] Phone Care Team Providers Care Patrol Man Name Role Phone Below, Kiel Reed MD Unavailable [facility]orey Saleh [facility] Unavailable Unavailable Kalli Lopez APRN, SHANK SORTER Unavailable [phone] Reason for Visit * Reason Onset Date Comments Medication Refill 04/16/2023 Adderall 20 mg - clonazepam 0.5 mg Encounter Details Date Type Department Care Team (Late st Contact Info) Description 04/16/2023 MyChart [place] [facility] [place] [facility] [place] [address] [place], [place] [id number] Kalli Lopez APRN, SHANK SORTER [address] [place] [address] Medication Renewal Declined Social History Tobacco Use Types Packs/Day Years [...] on file Legal Sex Female 3:08 AM SUPERVISOR BONDING Gender Identity Not on file Sexual Orientation Not on file documented as of this encounter Miscellaneous Notes * Telephone Encounter - Karolina Varela - 04/16/2023 10:37 AM CDT Refill request for the following medication: adderall 20 mg - clonazepam 0.5 mg CORI: 12/08/22 NOV: 06/08/23 LRF: 03/13/23 #90 + 0 [place] 03/13/23-both Order pended 2 scripts on file dated 04-12-23 & 05-12-23 - adderall -- please deny documented in this encounter Plan of Treatment Not on file documented as of this encounter Visit Diagnoses Diagnosis Attention deficit hyperactivity disorder (ADHD), combined type Generalized anxiety disorder documented in this encounter Additional Health Concerns Assessment Noted Time PHQ-9 Depression Total Score: 18 019 1:00 PM CDT documented as of this encounter Care Teams Patrol Man Relationship Specialty Start Date End Date Below, Kiel Reed MD [address] [place] [address] Consulting Physician Orthopaedic Sports Medicine 09/08/16 Torey Saleh BROADCAST TECHNICIAN [address] [place] [address] Behavioral Therapist Licensed Clinical Professional Counselor 03/25/18 Kalli Lopez APRN, SHANK SORTER [address] [place], [place] [id number] Nurse Practitioner Advanced Practice Nurse 04/17/22 documented as of this encounter
--- OUTSIDE RECORDS SUMMARY | 2024-11-20 16:53 | XMS_ITS | Encounter Summary ---
Author Organization [facility] Address [address] [place] [address] Phone Care Team Providers Care Automated Access Systems Technician Name Role Phone Below, Kiel Reed MD Unavailable [phone] Torey Saleh [facility] Unavailable Unavailable Kalli Lopez APRN, MECHANICAL PROCESS ENGINEER Unavailable Reason for Visit * Reason Onset Date Comments Medication Refill 03/11/2023 Adderall 20 mg , clonazepam and trazodone Encounter Details Date Type Department Care Team (Late st Contact Info) Description 03/11/2023 MyChart RX [place] [facility] [place] [address] [place], [place] [id number] Kalli Lopez APRN, MECHANICAL PROCESS ENGINEER [address] [place] [address] Medication Renewal Declined Social History [...] on file Legal Sex Female 3:08 AM MUSICAL STRING MAKER Gender Identity Not on file Sexual Orientation Not on file documented as of this encounter Miscellaneous Notes * Telephone Encounter - Kalli Lopez APRN, CNP - 03/13/2023 3:27 PM CDT Signed. * Telephone Encounter - Pita Rangel RN - 03/13/2023 9:10 AM CDT Refill request received for Adderall 20 mg, clonazepam and trazodone. CORI: 12/08/2022 NOV: 06/08/2023 Last Ordered: Adderall: 02/04/2023 60 tab 0 refills [place]: written and dispensed 02/04/2023 Clonazepam: 02/08/2023 90 tab 0 refills [place]: written 02/04/2023 dispensed 02/10/2023 Trazodone: 03/09/2023 30 tab 4 refills Denied by RN. Too soon. Medication pended and routed for review. documented in this encounter Plan of Treatment Not on file documented as of this encounter Visit Diagnoses Diagnosis Attention deficit hyperactivity disorder (ADHD), combined type Generalized anxiety disorder Insomnia, unspecified type documented in this encounter Additional Health Concerns Assessment Noted Time PHQ-9 Depression Total Score: 18 019 1:00 PM CDT documented as of this encounter Care Teams Automated Access Systems Technician Relationship Specialty Start Date End Date Below, Kiel Reed MD [address] [place], [place] [address] Consulting Physician Orthopaedic Sports Medicine 09/08/16 Torey Saleh [facility] [address] [place] [address] Behavioral Therapist Licensed Clinical Professional Counselor 03/25/18 Kalli Lopez, NENA, MECHANICAL PROCESS ENGINEER [address] [place] [address] Nurse Practitioner Advanced Practice Nurse 04/17/22 documented as of this encounter
--- OUTSIDE RECORDS SUMMARY | 2024-11-20 16:53 | XMS_ITS | Encounter Summary ---
Author Organization [facility] Address [address] [place] [address] Phone Care Team Providers Care Pattern Painter Name Role Phone Below, Kiel Reed MD Unavailable [phone] Elba Velazquez MD Primary Care Provider [phone] Torey Saleh [facility] Unavailable Unavailable Jose Nichols MD Unavailable [phone] Reason for Visit * Reason Onset Date Comments Medication Refill 02/25/2022 Clonazepam and geodon Encounter Details Date Type Department Care Team (Late st Contact Info) Description 02/25/2022 [facility] [facility] [place] [address] [place], [place] [address] Jose Nichols MD [address] [place], [place] [address] Medication Refill (Clonazepam and geodon) Social History Tobacco Use Types Packs/Day Years [...] on file Legal Sex Female 3:08 AM DIRECTOR MARKETING ANALYTICS Gender Identity Not on file Sexual Orientation Not on file documented as of this encounter Miscellaneous Notes * Telephone Encounter - Pita Baires RN - 02/25/2022 2:12 PM CDT [facility] to clarify patient's quantity for her clonazepam. Written quantity is sixty and quantity is 90. Notified the pharmacy that it should be 90 based on previous prescriptions and office visit. * Telephone Encounter - Pita Baires RN - 02/25/2022 9:38 AM CDT Refill request received for clonazepam and Geodon. CORI: 02/12/2022 NOV: Transferred to front office to reschedule. Last Ordered: Clonazepam: 01/17/2022 90 tab 0 refills [place] written and disp[place] 01/17/2022 Geodon: Has refills. Patient notified. Medication pended and routed for review. * Telephone Encounter - Pita Baires RN - 02/25/2022 9:12 AM CDT ----- Message from Anna Santizo sent at 02/24/2022 3:57 PM CDT ----- Loni [phone] Dr Nichols Clonazepam and Geodon. [facility] in [place], [place] NOV - none scheuled. documented in this encounter Plan of Treatment Not on file documented as of this encounter Visit Diagnoses Diagnosis Generalized anxiety disorder documented in this encounter Additional Health Concerns Assessment Noted Time PHQ-9 Depression Total Score: 18 019 1:00 PM CDT documented as of this encounter Care Teams Pattern Painter Relationship Specialty Start Date End Date Elba Velazquez MD [address] [place] [address] PCP - General Internal Medicine 05/08/17 01/26/23 Below, Kiel Reed MD [address] [facility] [place] [address] Consulting Physician Orthopaedic Sports Medicine 09/08/16 Torey Saleh, [facility] [address] [place] [address] Behavioral Therapist Licensed Clinical Professional Counselor 03/25/18 Jose Nichols MD [address] [facility] [place] [address] Consulting Physician Psychiatry 08/23/21 04/16/22 documented as of this encounter
--- OUTSIDE RECORDS SUMMARY | 2024-11-20 16:53 | XMS_ITS | Encounter Summary ---
Author Organization [employer] Care Team Providers Care Lumber Checker Name Role Phone Below, Kiel Reed MD Unavailable [phone] Elba Velazquez MD Primary Care Provider [phone] Torey Saleh [facility] Unavailable Unavailable Kalli Lopez APRN, RUDDY Unavailable Encounter Details Date Type Department Care Team (Latest Contact Info) Description 12/08/2022 Travel Social History Tobacco Use Types Packs/Day [...] on file Legal Sex Female 3:08 AM OVER SHORT AND DAMAGE CLERK Gender Identity Not on file Sexual Orientation Not on file COVID-19 Exposure Response Date Recorded In the last 10 days, have yo u been in contact with someone who was confirmed or suspected to have Coronavirus/COVID-19? No / Unsure 12/08/2022 1:01 PM OVER SHORT AND DAMAGE CLERK documented as of this encounter Plan of Treatment Not on file documented as of this encounter Visit Diagnoses Not on filedocumented in this encounter Additional Health Concerns Assessment Noted Time PHQ-9 Depression Total Score: 18 019 1:00 PM CDT documented as of this encounter Care Teams Lumber Checker Relationship Specialty Start Date End Date Elba Velazquez MD [address] [place] [address] PCP - General Internal Medicine 05/08/17 01/26/23 Kiel Zelaya MD [address] [place] [address] Consulting Physician Orthopaedic Sports Medicine 09/08/16 Torey Saleh [facility] [address] [facility] [address] [place] [address] Behavioral Therapist Licensed Clinical Professional Counselor 03/25/18 Kalli Lopez APRN, COMMUNITY RELATIONS ADVISOR [address] [place] [address] Nurse Practitioner Advanced Practice Nurse 04/17/22 documented as of this encounter
--- OUTSIDE RECORDS SUMMARY | 2024-11-20 16:53 | XMS_ITS | Encounter Summary ---
Author Organization [facility] Address [address] [place] [address] Phone Care Team Providers Care Geotechnical Engineering Technician Name Role Phone Below, Kiel Reed MD Unavailable [phone] Elba Velazquez MD Primary Care Provider [phone] Torey Saleh [facility] Unavailable Unavailable Kalli Lopez APRN, PRODUCT ANALYST Unavailable [phone] Reason for Visit * Reason Onset Date Comments Medication Refill 09/08/2022 Adderall and c lonazepam Encounter Details Date Type Department Care Team (Late st Contact Info) Description 09/08/2022 [facility] [facility] [place] [facility] [address] [place], [place] [address] Kalli Lopez APRN, PRODUCT ANALYST [address] [place], [place] [address] Medication Refill (Adderall and clonazepam) Social History Tobacco Use Types Packs/Day Years [...] on file Legal 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 CORI: 07/24/2022 NOV: 09/26/2022 Last Ordered: Adderall: 07/15/2022 60 tab 0 refills [place] and dispensed 07/15/2022 Clonazepam: 08/14/2022 90 tab 0 refills [place]: and dispensed 08/14/2022 Medication pended and routed for review. * Telephone Encounter - Pita Rangel RN - 09/08/2022 4:38 PM CDT ----- Message from Yoli Mullins sent at 09/08/2022 2:53 PM CDT ----- Regarding: Refill Request Loni [phone] (home) PARRISH Mahan Requesting refills for Adderall and Clonazepam sent to [facility] in [place]. NOV: 09/23/22 documented in this encounter Plan of Treatment Not on file documented as of this encounter Visit Diagnoses Diagnosis Attention deficit hyperactivity disorder (ADHD), combined type Generalized anxiety disorder documented in this encounter Additional Health Concerns Assessment Noted Time PHQ-9 Depression Total Score: 18 019 1:00 PM CDT documented as of this encounter Care Teams Geotechnical Engineering Technician Relationship Specialty Start Date End Date Elba Velazquez MD [address] [place] [address] PCP - General Internal Medicine 05/08/17 01/26/23 BelowKiel MD [address] [place] [address] Consulting Physician Orthopaedic Sports Medicine 09/08/16 Torey Saleh [facility] [address] [place] [address] Behavioral Therapist Licensed Clinical Professional Counselor 03/25/18 Kalli Lopez APRN, PRODUCT ANALYST [address] [facility] [place] [address] Nurse Practitioner Advanced Practice Nurse 04/17/22 documented as of this encounter
--- OUTSIDE RECORDS SUMMARY | 2024-11-20 16:53 | XMS_ITS | Encounter Summary ---
Author Organization [facility] Address [address] [place] [address] Phone Care Team Providers Care Truck Assembler Name Role Phone Below, Kiel Reed MD Unavailable [phone] Elba Velazquez MD Primary Care Provider [phone] Torey Saleh [facility] Unavailable Unavailable Jose Nichols MD Unavailable [phone] Encounter Details Date Type Department Care Team (Late st Contact Info) Description 01/29/2022 Telephone [facility] Psychiatry & Psychology [address] [place] [address] Jose Nichols MD [address] [place], [place] [id number] Social History Tobacco Use Types Packs/Day Years [...] on file Legal Sex Female 3:08 AM DRY ROLLER Gender Identity Not on file Sexual Orientation Not on file documented as of this encounter Miscellaneous Notes * Telephone Encounter - Pita Baires RN - 01/30/2022 3:34 PM DRY ROLLER Patient states that the pharmacy does not have a prescription for her Adderall. Spoke with [facility] in [place] and they have a prescription ready for her. Patient notified and verbalized understanding. ROLLER * Telephone Encounter - Roberta Beard RN - 01/29/2022 12:14 PM CST Patient at daughters dentist appointment and will call back. ROLLER * Telephone Encounter - Roberta Beard RN - 01/29/2022 11:52 AM CST ----- Message from Yoli Mullins sent at 01/29/2022 11:35 AM DRY ROLLER ----- Loni [phone] (home) Dr. Nichols Would like a nurse to call regarding medications. NOV: 02/12/22 ROLLER documented in this encounter Plan of Treatment Not on file documented as of this encounter Visit Diagnoses Not on filedocumented in this encounter Additional Health Concerns Assessment Noted Time PHQ-9 Depression Total Score: 18 019 1:00 PM CDT documented as of this encounter Care Teams Truck Assembler Relationship Specialty Start Date End Date Elba Velazquez MD [address] [facility] [address] [place] [address] PCP - General Internal Medicine 05/08/17 01/26/23 Kiel Zelaya MD [address] [place] [address] Consulting Physician Orthopaedic Sports Medicine 09/08/16 Torey Saleh [facility] [address] [facility] [address] [place] [address] Behavioral Therapist Licensed Clinical Professional Counselor 03/25/18 Jose Nichols MD [address] [facility] [place] [address] Consulting Physician Psychiatry 08/23/21 04/16/22 documented as of this encounter
--- OUTSIDE RECORDS SUMMARY | 2024-11-20 16:53 | XMS_ITS | Encounter Summary ---
Author Organization [facility] Address [address] [place] [address] Phone Care Team Providers Care Machine Sweeper Brush Maker Name Role Phone Below, Kiel Reed MD Unavailable [phone] Elba Velazquez MD Primary Care Provider [phone] Torey Saleh [facility] Unavailable Unavailable Kalli Lopez APRN, GANG SUPERVISOR PIPE LINES Unavailable [phone] Reason for Visit * Reason Onset Date Comments Medication Refill 11/14/2022 Adderall 20 mg , Clonazepam 0.5 mg Encounter Details Date Type Department Care Team (Late st Contact Info) Description 11/14/2022 MyChart RX Renewal [facility] Psych[facility]ry & Psychology [address] [place], [place] [address] Kalli oLpez APRN, GANG SUPERVISOR PIPE LINES [address] [place], [place] [address] Medication Renewal Request Social History Tobacco Use Types Packs/Day Years Used Date Smoking Tobacco: Every Day Smokeless Tobacco: Never Comments:uses e cig - 45 mg nicotine Alcohol Use Standard Drinks/Week Comments Yes 0.8 (1 standard drink = 0.6 oz p ure alcohol) occ drinker PHQ-2 Answer Date Recorded PHQ-2 Score 18 08/03/2019 Comments Unknown Sex and Gender Information Value Date Recorded Sex Assigned at Not on file Legal Sex Female 3:08 AM GARAGE MECHANIC Gender Identity Not on file Sexual Orientation Not on file documented as of this encounter Miscellaneous Notes * Telephone Encounter - Pita Rangel RN - 11/21/2022 11:18 AM GARAGE MECHANIC See refill encounter dated for 11/21/2022. GE MECHANIC * Telephone Encounter - Kalli Lopez APRN, CNP - 11/20/2022 9:27 AM GARAGE MECHANIC If patient starts to have any problematic symptoms can go to the ED. I will not continue to fill medications especially since I have not seen her physically in office before. This was discussed at last televisit on 07/24/22 and it was not a good connection. This gave patient enough time to make arrangements to see me at least once in person and she did not do this. Last month, was last refill and st ill did not make appointment. Yes she transferred to me from [place] but I will not continue video appointments only. I suggest patient find a more local provider for her needs since she is getting new insurance. GE MECHANIC * Telephone Encounter - Pita Rangel RN - 11/20/2022 8:14 AM GARAGE MECHANIC She has been transferred to you from Dr. Nichols? GE MECHANIC * Telephone Encounter - Kalli Lopez APRN, CNP - 11/14/2022 1:43 PM GARAGE MECHANIC Denied refills. See last refill request in 10/10/22. That was patients last refill. Must be seen in office for further evaluation. GE MECHANIC * Telephone Encounter - Alysa Hough - 11/14/2022 1:20 PM CST Refill request received for Adderall 20 mg, Clonazepam 0.5 mg. CORI: 07/24/2022 NOV: Visit date not found Last Ordered: Adderall 20 mg, 60 tabs 0 refills Clonazepam 0.5 mg 90 tabs 0 refills 10/10/22 PDMP written 10/10/22 dispensed 10/13/22 (Adderall) Written 10/10/22 dispensed 10/11/22 (Clonazepam) Medication pended and routed for review. GE MECHANIC documented in this encounter Plan of Treatment Not on file documented as of this encounter Visit Diagnoses Diagnosis Attention deficit hyperactivity disorder (ADHD), combined type Generalized anxiety disorder documented in this encounter Additional Health Concerns Assessment Noted Time PHQ-9 Depression Total Score: 18 019 1:00 PM CDT documented as of this encounter Care Teams Machine Sweeper Brush Maker Relationship Specialty Start Date End Date Elba Velazquez MD [address] [facility] [address] [place] [address] PCP - General Internal Medicine 05/08/17 01/26/23 Kiel Zelaya MD [address] [place] [address] Consulting Physician Orthopaedic Sports Medicine 09/08/16 Torey Saleh [facility] [address] [facility] [address] [place] [address] Behavioral Therapist Licensed Clinical Professional Counselor 03/25/18 Kalli Lopez APRN, GANG SUPERVISOR PIPE LINES [address] [facility] [place] [address] Nurse Practitioner Advanced Practice Nurse 04/17/22 documented as of this encounter
--- OUTSIDE RECORDS SUMMARY | 2024-11-20 16:53 | XMS_ITS | Encounter Summary ---
Author Organization [facility] Address [address] [place] [address] Phone Care Team Providers Care Online Advertising Director Name Role Phone Below, Kiel Reed MD Unavailable [phone] Elba Velazquez MD Primary Care Provider [phone] Torey Saleh [facility] Unavailable Unavailable Kalli Lopez APRN, POLISHING MACHINE TENDER Unavailable [phone] Reason for Visit * Reason Onset Date Comments Medication Refill 11/21/2022 Adderall, Clon azepam Encounter Details Date Type Department Care Team (Late st Contact Info) Description 11/21/2022 Refill [facility] Psychiatry & Psychology [address] [place], [place] [address] Kalli Lopez APRN, POLISHING MACHINE TENDER [address] [place], [place] [address] Medication Refill (Adderall, Clonazepam) Social History Tobacco Use Types Packs/Day Years [...] on file Legal Sex Female 3:08 AM MANUAL MACHINIST Gender Identity Not on file Sexual Orientation Not on file documented as of this encounter Miscellaneous Notes * Telephone Encounter - Kalli Lopez APRN, CNP - 11/21/2022 10:48 AM MANUAL MACHINIST Appreciate this message and for patient scheduling with me. I will do a refill for enough to last until her appointment with me. Rx sent for both. AL MACHINIST * Telephone Encounter - Irvin Duarte RN - 11/21/2022 8:50 AM CST Patient has scheduled an in-person visit on day off from work, 12/08/22. She has been notified that provider previously stated future refills would only be ordered at NOV in person. Patient courteous and apologetic for past cancellations and says she can understand if it needs to wait, but does request nursing to discuss one more refill with ETHANOL QUALITY LEADER. Refill request received for Clonazepam 0.5 mg, Adderall 20 mg. CORI: 07/24/2022 NOV: 12/08/2022 in person Last Ordered: Adderall: 10/10/22, #60 [place] 10/13 Clonazepam: 10/10/22, #90 [place] 10/11 Medication pended and routed for review. AL MACHINIST * Telephone Encounter - Irvin Duarte RN - 11/21/2022 8:47 AM CST ----- Message from Rich Hussein sent at 11/20/2022 2:38 PM MANUAL MACHINIST ----- Loni [phone] (home) Kalli Called and made an appt to get her meds refilled. The day we scheduled is her day off so she said that she will be here. She is trying to get into a new provider in her area, but she got a new job with new insurance and they are supposed to be getting back with her to see if they can get in the office in November. If you are able to do refills for her, she would like them sent to the [facility] on [facility] in [place] as this is the new pharmacy she will be using with her new insurance. She would like a call back to let her know if the refills can be done. NOV 12/08/22 AL MACHINIST documented in this encounter Plan of Treatment Not on file documented as of this encounter Visit Diagnoses Diagnosis Attention deficit hyperactivity disorder (ADHD), combined type Generalized anxiety disorder documented in this encounter Additional Health Concerns Assessment Noted Time PHQ-9 Depression Total Score: 18 019 1:00 PM CDT documented as of this encounter Care Teams Online Advertising Director Relationship Specialty Start Date End Date Elba Velazquez MD [address] [facility] [address] [place], [place] [address] PCP - General Internal Medicine 05/08/17 01/26/23 Kiel Zelaya MD [address] [place], [place] [address] Consulting Physician Orthopaedic Sports Medicine 09/08/16 Torey Saleh [facility] [address] [facility] [address] [place] [address] Behavioral Therapist Licensed Clinical Professional Counselor 03/25/18 Kalli Lopez APRN, POLISHING MACHINE TENDER [address] [facility] [place] [id number] Nurse Practitioner Advanced Practice Nurse 04/17/22 documented as of this encounter
--- OUTSIDE RECORDS SUMMARY | 2024-11-20 16:53 | XMS_ITS | Encounter Summary ---
Author Organization [employer] Care Team Providers Care Vibrator Operator Name Role Phone Below, Kiel Reed MD Unavailable [phone] Elba Velazquez MD Primary Care Provider [phone] Torey Saleh [facility] Unavailable Unavailable Jose Nichols MD Unavailable [phone] Encounter Details Date Type Department Care Team (Latest Contact Info) Description 12/13/2021 Travel Social History Tobacco Use Types Packs/Day [...] on file Legal Sex Female 3:08 AM BINDERY CUTTER OPERATOR Gender Identity Not on file Sexual Orientation Not on file COVID-19 Exposure Response Date Recorded In the last month, have you been in contact with someone who was confirmed or suspected to have Coronavirus / COVID-19? No / Unsure 12/13/2021 3:14 PM BINDERY CUTTER OPERATOR documented as of this encounter Plan of Treatment Not on file documented as of this encounter Visit Diagnoses Not on filedocumented in this encounter Additional Health Concerns Assessment Noted Time PHQ-9 Depression Total Score: 18 019 1:00 PM CDT documented as of this encounter Care Teams Vibrator Operator Relationship Specialty Start Date End Date Elba Velazquez MD [address] [place] [address] PCP - General Internal Medicine 05/08/17 01/26/23 Kiel Zelaya MD [address] [facility] [place] [address] Consulting Physician Orthopaedic Sports Medicine 09/08/16 Torey Saleh [facility] [address] [place] [address] Behavioral Therapist Licensed Clinical Professional Counselor 03/25/18 Jose Nichols MD [address] [facility] [place] [address] Consulting Physician Psychiatry 08/23/21 04/16/22 documented as of this encounter
--- OUTSIDE RECORDS SUMMARY | 2024-11-20 16:53 | XMS_ITS | Encounter Summary ---
Author Organization [facility] Address [address] [address] Phone Care Team Providers Care Central Office Repairer Supervisor Name Role Phone Below, Kiel Reed MD Unavailable [phone] Elba Velazquez MD Primary Care Provider [phone] Torey Saleh [facility] Unavailable Unavailable Kalli Lopez APRN, ADMINISTRATIVE LIBRARY ASSISTANT Unavailable Reason for Visit * Reason Onset Date Comments Medication Refill 08/13/2022 Clonazepam Encounter Details Date Type Department Care Team (Late st Contact Info) Description 08/13/2022 [facility]ill [facility] Psychiatry & Psychology [address] [place], [place] [address] Kalli Lopez APRN, ADMINISTRATIVE LIBRARY ASSISTANT [address] [place], [place] [address] Medication Refill (Clonazepam) Social History Tobacco Use Types Packs/Day Years [...] on file Legal Sex Female 3:08 AM MARINE SERVICE OPERATOR Gender Identity Not on file Sexual Orientation Not on file COVID-19 Exposure Response Date Recorded In the last 10 days, have yo u been in contact with someone who was confirmed or suspected to have Coronavirus/COVID-19? No / Unsure 07/24/2022 3:18 PM CDT documented as of this encounter Miscellaneous Notes * Telephone Encounter - Kalli Lopez APRN, CNP - 08/14/2022 8:55 AM CDT Refilled. * Telephone Encounter - Lona Murphy RN - 08/13/2022 2:25 PM CDT Called patient. She was checking on status of clonazepam refill. Updated patient * Telephone Encounter - Lona Murphy RN - 08/13/2022 2:20 PM CDT ----- Message from Aggie Harrington sent at 08/13/2022 2:13 PM CDT ----- Loni [phone] (home) Kalli Pt calling back regarding rx OCT 01 * Telephone Encounter - Irvin Duarte RN - 08/13/2022 9:22 AM CDT Refill request received for Clonazepam 0.5 mg. CORI: 07/24/2022 NOV: 08/22/2022 Last Ordered: 07/08/22, #90 with [place] RF [place] 07/08/22 Medication pended and routed for review. * Telephone Encounter - Irvin Duarte RN - 08/13/2022 9:22 AM CDT ----- Message from Aggie Harrington sent at 08/13/2022 8:46 AM CDT ----- Loni [phone] (home) Kalli Refill on Klonopin [facility] [address] OCT 01 documented in this encounter Plan of Treatment Not on file documented as of this encounter Visit Diagnoses Diagnosis Generalized anxiety disorder documented in this encounter Additional Health Concerns Assessment Noted Time PHQ-9 Depression Total Score: 18 019 1:00 PM CDT documented as of this encounter Care Teams Central Office Repairer Supervisor Relationship Specialty Start Date End Date Elba Velazquez MD [address] [facility] [address] [place] [address] PCP - General Internal Medicine 05/08/17 01/26/23 Kiel Zelaya MD [address] [facility] [place] [address] Consulting Physician Orthopaedic Sports Medicine 09/08/16 Torey Saleh [facility] [address] [facility] [address] [place] [address] Behavioral Therapist Licensed Clinical Professional Counselor 03/25/18 Kalli Lopez, BOXING TRAINER, ADMINISTRATIVE LIBRARY ASSISTANT [address] [facility], [place] [address] Nurse Practitioner Advanced Practice Nurse 04/17/22 documented as of this encounter
--- OUTSIDE RECORDS SUMMARY | 2024-11-20 16:53 | XMS_ITS | Encounter Summary ---
Author Organization [facility] Address [address] [place] [address] Phone Care Team Providers Care Bone Plant Supervisor Name Role Phone Below, Kiel Reed MD Unavailable [phone] Torey Saleh [facility] Unavailable Unavailable Kalli Lopez APRN, BINGO CLERK Unavailable Reason for Visit * Reason Onset Date Comments Medication Refill 02/03/2023 Adderall 20 mg and clonazepam 0.5 mg Encounter Details Date Type Department Care Team (Late st Contact Info) Description 02/03/2023 MyChart [facility] Psych[facility]ry & Psychology [address] [place], [place] [id number] Kalli Lopez APRN, BINGO CLERK [address] [place] [address] Medication Renewal Reviewed Social History Tobacco Use Types Packs/Day Years [...] on file Legal Sex Female 3:08 AM GARMENT PARTS CUTTER HAND Gender Identity Not on file Sexual Orientation Not on file documented as of this encounter Miscellaneous Notes * Telephone Encounter - Pita Rangel RN - 02/04/2023 9:37 AM CDT Refill request received for Adderall 20 mg and clonazepam 0.5 mg. CORI: 12/08/2022 NOV: 06/08/2023 Last Ordered: Adderall: 12/08/2022 60 tab 0 [place]ills [place] 12/08/2022 Clonazepam: 01/09/2023 90 tab 0 refills [place] 01/09/2023 Medication pended and routed for review. documented in this encounter Plan of Treatment Not on file documented as of this encounter Visit Diagnoses Diagnosis Attention deficit hyperactivity disorder (ADHD), combined type Generalized anxiety disorder documented in this encounter Additional Health Concerns Assessment Noted Time PHQ-9 Depression Total Score: 18 019 1:00 PM CDT documented as of this encounter Care Teams Bone Plant Supervisor Relationship Specialty Start Date End Date Below, Kiel Reed MD [address] [place] [address] Consulting Physician Orthopaedic Sports Medicine 09/08/16 Torey Saleh [facility] [address] [place] [address] Behavioral Therapist Licensed Clinical Professional Counselor 03/25/18 Kalli Lopez APRN, BINGO CLERK [address] [place], [place] [address] Nurse Practitioner Advanced Practice Nurse 04/17/22 documented as of this encounter
--- OUTSIDE RECORDS SUMMARY | 2024-11-20 16:53 | XMS_ITS | Encounter Summary ---
Author Organization [facility] Address [address] [place] [address] Phone Care Team Providers Care Marine Design Engineer Name Role Phone Below, Kiel Reed MD Unavailable [phone] Elba Velazquez MD Primary Care Provider [phone] Torey Saleh [facility] Unavailable Unavailable Kalli Lopez APRN, GMAT TUTOR Unavailable Reason for Visit * Reason Comments Medication Refill Clonazepam 0.5 mg Encounter Details Date Type Department Care Team (Late st Contact Info) Description 05/06/2022 Refill [facility] Psychiatry & Psychology [address] [place] [address] Kalli Lopez APRN, GMAT TUTOR [address] [place], [place] [address] Medication Refill (Clonazepam 0.5 mg) Social History Tobacco Use Types Packs/Day Years [...] on file Legal Sex Female 3:08 AM STEAMING CABINET TENDER Gender Identity Not on file Sexual Orientation Not on file COVID-19 Exposure Response Date Recorded In the last 10 days, have yo u been in contact with someone who was confirmed or suspected to have Coronavirus/COVID-19? Yes 04/18/2022 3:21 PM CDT documented as of this encounter Miscellaneous Notes * Telephone Encounter - Kalli Lopez APRN, CNP - 05/07/2022 2:25 PM CDT Refilled. Patient not . Please ask patient to reach out to her provider who put in her chart. Including complaint investigations officer. should no longer be listed. * Telephone Encounter - Roberta Beard RN - 05/07/2022 12:22 PM CDT ----- Message from Rich Hussein sent at 05/06/2022 4:06 PM CDT ----- Loni [phone] Kalli She ran out of her clonazepam yesterday and is hoping that she can get it today and would like a call if possible. NOV 07/14/22 * Telephone Encounter - Karolina Varela - 05/07/2022 7:02 AM CDT Refill request for the following medication: clonazepam 0.5 mg CORI: 04/18/22 NOV: 07/14/22 LRF: 04/03/22 #90 + 0 [place] 04/03/22 Order pended documented in this encounter Plan of Treatment [...] documented as of this encounter Care Teams Marine Design Engineer Relationship Specialty Start Date End Date Elba Velazquez MD [address] [facility] [address] [place] [address] PCP - General Internal Medicine 05/08/17 01/26/23 BelowKiel MD [address] [facility] [place] [place] [address] Consulting Physician Orthopaedic Sports Medicine 09/08/16 Torey Saleh [facility] [address] [facility] [address] [place] [address] Behavioral Therapist Licensed Clinical Professional Counselor 03/25/18 Kalli Lopez APRN, GMAT TUTOR [address] [place] [address] Nurse Practitioner Advanced Practice Nurse 04/17/22 documented as of this encounter
--- OUTSIDE RECORDS SUMMARY | 2024-11-20 16:53 | XMS_ITS | Encounter Summary ---
Author Organization [facility] Address [address] [place] [address] Phone Care Team Providers Care Retail Associate Name Role Phone Below, Kiel Reed MD Unavailable [phone] Elba Velazquez MD Primary Care Provider [phone] Torey Saleh [facility] Unavailable Unavailable Kalli Lopez APRN, KICKING MACHINE OPERATOR Unavailable Reason for Visit * Reason Onset Date Comments Medication Refill 07/07/2022 Clonazepam Encounter Details Date Type Department Care Team (Late st Contact Info) Description 07/07/2022 Refill [facility] Psychiatry & Psychology [address] [place], [place] [address] Kalli Lopez APRN, KICKING MACHINE OPERATOR [address] [place], [place] [address] Medication Refill (Clonazepam ) Social History Tobacco Use Types Packs/Day Years [...] on file Legal Sex Female 3:08 AM IRRIGATION TAX ASSESSOR COLLECTOR Gender Identity Not on file Sexual Orientation Not on file documented as of this encounter Miscellaneous Notes * Telephone Encounter - Roberta Beard RN - 07/07/2022 4:18 PM CDT Refill request received for clonazepam 0.5 mg three times daily as needed for anxiety. CORI: 04/18/2022 NOV: 07/14/2022 Last Ordered: 06/06/22 #90 with 0 refills. Per PR PLANER HAND 06/06/22 #90 Medication pended and routed for review. * Telephone Encounter - Roberta Beard RN - 07/07/2022 4:17 PM CDT ----- Message from Anna Santizo sent at 07/07/2022 3:45 PM CDT ----- Regarding: refill Erika [phone] PARRISH Mahan Clonazepam refill needed. Tracey in [place], [place]. NOV 07/14/22 documented in this encounter Plan of Treatment Not on file documented as of this encounter Visit Diagnoses Diagnosis Generalized anxiety disorder documented in this encounter Additional Health Concerns Assessment Noted Time PHQ-9 Depression Total Score: 18 019 1:00 PM CDT documented as of this encounter Care Teams Retail Associate Relationship Specialty Start Date End Date Elba Velazquez MD [address] [facility] [address] [place] [address] PCP - General Internal Medicine 05/08/17 01/26/23 Below, Kiel Reed MD [address] [place], [place] [id number] Consulting Physician Orthopaedic Sports Medicine 09/08/16 Torey Saleh, [facility] [address] [facility] [address] [place] [address] Behavioral Therapist Licensed Clinical Professional Counselor 03/25/18 Kalli Lopez, NENA, KICKING MACHINE OPERATOR [address] [place] [address] Nurse Practitioner Advanced Practice Nurse 04/17/22 documented as of this encounter
--- OUTSIDE RECORDS SUMMARY | 2024-11-20 16:53 | XMS_ITS | Encounter Summary ---
Author Organization [facility] Address [address] [place] [address] Phone Care Team Providers Care Hay Farmer Name Role Phone Below, Kiel Reed MD Unavailable [phone] Torey Saleh [facility] Unavailable Unavailable Kalli Lopez APRN, MEDICARE COMPLIANCE AUDITOR Unavailable [phone] Reason for Visit * Reason Onset Date Comments Medication Refill 06/01/2023 Adderall 20 mg Encounter Details Date Type Department Care Team (Late st Contact Info) Description 06/01/2023 MyChart RX [facility]al [facility] Psychiatry & Psychology [address] [place], [place] [id number] Kalli Lopez APRN, MEDICARE COMPLIANCE AUDITOR [address] [place] [address] Medication Renewal Declined Social History [...] on file 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 CORI: 12/08/2022 NOV: Visit date not found Last Ordered: 05/12/2023 60 tab 0 refills [place]: [place] 03/13/2023 dispensed 04/23/2023 Denied by RN. One more prescription left on file. documented in this encounter Plan of Treatment Not on file documented as of this encounter Visit Diagnoses Diagnosis Attention deficit hyperactivity disorder (ADHD), combined type documented in this encounter Additional Health Concerns Assessment Noted Time PHQ-9 Depression Total Score: 18 019 1:00 PM CDT documented as of this encounter Care Teams Hay Farmer Relationship Specialty Start Date End Date Below, Kiel Reed MD [address] [place] [address] Consulting Physician Orthopaedic Sports Medicine 09/08/16 Torey Saleh [facility] [address] [place] [address] Behavioral Therapist Licensed Clinical Professional Counselor 03/25/18 Kalli Lopez APRN, MEDICARE COMPLIANCE AUDITOR [address] [place] [address] Nurse Practitioner Advanced Practice Nurse 04/17/22 documented as of this encounter
--- OUTSIDE RECORDS SUMMARY | 2024-11-20 16:53 | XMS_ITS | Encounter Summary ---
Author Organization [facility] Address [address] [place] [address] Phone Care Team Providers Care Physical Metallurgist Name Role Phone Below, Kiel Reed MD Unavailable [phone] Elba Velazquez MD Primary Care Provider [phone] Torey Saleh [facility] Unavailable Unavailable Kalli Lopez APRN, FURNACE COMBUSTION ANALYST Unavailable [phone] Reason for Visit * Reason Onset Date Comments Medication Refill 01/09/2023 Klonopin 0.5mg Encounter Details Date Type Department Care Team (Late st Contact Info) Description 01/09/2023 MyChart RX [facility]al [facility] Psych[facility] & Psychology [address] [place], [place] [address] Kalli Lopez APRN, FURNACE COMBUSTION ANALYST [address] [place], [place] [address] Medication Renewal Reviewed Social History Tobacco Use [...] on file 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 CORI: 12/08/2022 NOV: 06/08/2023 Last Ordered: 12/08/2022 90 tab 0 refills PDMP 12/08/2022 Medication pended and routed for review. OLEUM PRODUCTS SALES REPRESENTATIVE documented in this encounter Plan of Treatment Not on file documented as of this encounter Visit Diagnoses Diagnosis Generalized anxiety disorder documented in this encounter Additional Health Concerns Assessment Noted Time PHQ-9 Depression Total Score: 18 019 1:00 PM CDT documented as of this encounter Care Teams Physical Metallurgist Relationship Specialty Start Date End Date Elba Velazquez MD [address] [facility] [address] [place] [address] PCP - General Internal Medicine 05/08/17 01/26/23 Kiel Zelaya MD [address] [facility] [place] [address] Consulting Physician Orthopaedic Sports Medicine 09/08/16 Torey Saleh [facility] [address] [facility] [address] [place] [address] Behavioral Therapist Licensed Clinical Professional Counselor 03/25/18 Kalli Lopez, NENA, FURNACE COMBUSTION ANALYST [address] [facility] [place] [address] Nurse Practitioner Advanced Practice Nurse 04/17/22 documented as of this encounter
--- OUTSIDE RECORDS SUMMARY | 2024-11-20 16:53 | XMS_ITS | Encounter Summary ---
Author Organization [facility] Address [address] [place] [address] Phone Care Team Providers Care Orthodontic Treatment Coordinator Name Role Phone Below, Kiel Reed MD Unavailable [phone] Elba Velazquez MD Primary Care Provider [phone] Torey Saleh [facility] Unavailable Unavailable Jose Nichols MD Unavailable [phone] Reason for Visit * Reason Onset Date Comments Medication Management 12/18/2021 Encounter Details Date Type Department Care Team (Late st Contact Info) Description 12/18/2021 Telephone [facility] [address] [place], [place] [id number] Jose Nichols MD [address] [place] [address] Medication Management Social History Tobacco Use Types Packs/Day Years [...] on file 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 No / Unsure 12/13/2021 3:14 PM JOURNEYMAN PIPEFITTER documented as of this encounter Miscellaneous Notes * Telephone Encounter - Pita Baires RN - 12/18/2021 9:48 AM JOURNEYMAN PIPEFITTER [facility] Pharmacy needed clarification on if clonazepam needed to be a quantity of 60 or 90 as the written quantity and the dispensed were different. Notified [facility] that it is suppose to be 90 as prescription was increased to 3 times daily on 09/06/2021. NEYMAN PIPEFITTER * Telephone Encounter - Pita Baires RN - 12/18/2021 9:44 AM JOURNEYMAN PIPEFITTER ----- Message from Peggy Velez sent at 12/18/2021 7:34 AM JOURNEYMAN PIPEFITTER ----- [facility] Dr. Nichols Below message from answering service: NEEDS CLARIFICATION ON THE RX - THERE IS A CONFLICT ON THE AMOUNT TO DISPENSE (60 OR 90 DAYS). PLS CLL NOV: none scheduled NEYMAN PIPEFITTER documented in this encounter Plan of Treatment Not on file documented as of this encounter Visit Diagnoses Not on filedocumented in this encounter Additional Health Concerns Assessment Noted Time PHQ-9 Depression Total Score: 18 02/24/2 019 1:00 PM CDT documented as of this encounter Care Teams Orthodontic Treatment Coordinator Relationship Specialty Start Date End Date Elba Velazquez MD [address] [facility] [address] [place] [address] PCP - General Internal Medicine 05/08/17 01/26/23 Kiel Zelaya, MD [address] [place], [place] [id number] Consulting Physician Orthopaedic Sports Medicine 09/08/16 Torey Saleh, [facility] [address] [facility] [address] [place] [address] Behavioral Therapist Licensed Clinical Professional Counselor 03/25/18 Jose Nichols MD [address] [facility], [place] [id number] Consulting Physician Psychiatry 08/23/21 04/16/22 documented as of this encounter
--- OUTSIDE RECORDS SUMMARY | 2024-11-20 16:53 | XMS_ITS | Encounter Summary ---
Author Organization [facility] Address [address] [place] [address] Phone Care Team Providers Care Corn Picker Name Role Phone Below, Kiel Reed MD Unavailable [phone] Elba Velazquez MD Primary Care Provider [phone] Torey Saleh [facility] Unavailable Unavailable Kalli Lopez APRN, BRICKMASON Unavailable Reason for Visit * Reason Onset Date Comments Medication Refill 10/10/2022 Adderall, Clon azepam Encounter Details Date Type Department Care Team (Late st Contact Info) Description 10/10/2022 [facility] [address] [place], [place] [address] Kalli Lopez APRN, BRICKMASON [address] [place], [place] [address] Medication Refill (Adderall, Clonazepam) Social History Tobacco [...] on file 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 This is the last refill until she is seen in office. Please inform patient. Last two visits that were scheduled were cancelled. RENTAL CLERK * Telephone Encounter - Irvin Duarte RN - 10/10/2022 4:02 PM CST Refill request received for Adderall 20 mg, Clonazepam 0.5 mg. CORI: 07/24/2022 NOV: Visit date not found Last Ordered: Adderall: 09/09/22, #60 with no RF Clonazepam: 09/12/22, #90 with no RF [place]: Adderall: Dispensed 09/10/22 Clonazepam: Dispensed 09/13/22 Medication pended and routed for review. RENTAL CLERK * Telephone Encounter - Irvin Duarte RN - 10/10/2022 4:02 PM CST ----- Message from Aggie Harrington sent at 10/10/2022 3:44 PM BOAT RENTAL CLERK ----- Loni [phone] (home) Kalli Needs her adderall & Klonopin refilled [employer] [facility] NOV None RENTAL CLERK documented in this encounter Plan of Treatment Not on file documented as of this encounter Visit Diagnoses Diagnosis Attention deficit hyperactivity disorder (ADHD), combined type Generalized anxiety disorder documented in this encounter Additional Health Concerns Assessment Noted Time PHQ-9 Depression Total Score: 18 019 1:00 PM CDT documented as of this encounter Care Teams Corn Picker Relationship Specialty Start Date End Date Elba Velazquez MD [address] [place] [address] PCP - General Internal Medicine 05/08/17 01/26/23 Kiel Zelaya MD [address] [place] [address] Consulting Physician Orthopaedic Sports Medicine 09/08/16 Torey Saleh [facility] [address] [place] [address] Behavioral Therapist Licensed Clinical Professional Counselor 03/25/18 Kalli Lopez APRN, BRICKMASON [address] [facility] [place] [address] Nurse Practitioner Advanced Practice Nurse 04/17/22 documented as of this encounter
--- OUTSIDE RECORDS SUMMARY | 2024-11-20 16:53 | XMS_ITS | Encounter Summary ---
Author Organization [facility] Address [address] [place] [address] Phone Care Team Providers Care Jingle Writer Name Role Phone Below, Kiel Reed MD Unavailable [phone] Torey Saleh [facility] Unavailable Unavailable Kalli Lopez APRN, ACCESS SERVICES REPRESENTATIVE Unavailable [phone] Reason for Visit * Reason Onset Date Comments Medication Refill 04/24/2023 Trazodone 100 mg Encounter Details Date Type Department Care Team (Late st Contact Info) Description 04/24/2023 [facility]ill [facility] Psych[facility]ry & Psychology [address] [place], [place] [phone] Kalli Lopez APRN, ACCESS SERVICES REPRESENTATIVE [address] [place] [address] Medication Refill (Trazodone 100 mg) Social History Tobacco Use Types Packs/Day [...] on file 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 Gender Identity Not on file Sexual Orientation Not on file documented as of this encounter Miscellaneous Notes * Telephone Encounter - Karolina Varela - 04/24/2023 8:19 AM CDT Refill request for the following medication: trazodone 100 mg CORI: 12/08/22 NOV: 06/08/23 LRF: 03/09/23 #30 + 4 R Order pended Requesting 90 day supply documented in this encounter Plan of Treatment Not on file documented as of this encounter Visit Diagnoses Diagnosis Insomnia, unspecified type documented in this encounter Additional Health Concerns Assessment Noted Time PHQ-9 Depression Total Score: 18 019 1:00 PM CDT documented as of this encounter Care Teams Jingle Writer Relationship Specialty Start Date End Date Below, Kiel Reed MD [address] [place] [address] Consulting Physician Orthopaedic Sports Medicine 09/08/16 Torey Saleh [facility] [address] [place] [address] Behavioral Therapist Licensed Clinical Professional Counselor 03/25/18 Kalli Lopez APRN, ACCESS SERVICES REPRESENTATIVE [address] [place], [place] [address] Nurse Practitioner Advanced Practice Nurse 04/17/22 documented as of this encounter
--- OUTSIDE RECORDS SUMMARY | 2024-11-20 16:53 | XMS_ITS | Encounter Summary ---
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 Gender Identity Not on file Sexual Orientation [...] documented as of this encounter Care Teams Jailer/Training Officer Relationship Specialty Start Date End Date Elba Velazquez MD [address] [place] [address] PCP - General Internal Medicine 05/08/17 01/26/23 Kiel Zelaya MD [address] [facility] [place] [address] Consulting Physician Orthopaedic Sports Medicine 09/08/16 Torey Saleh [facility] [address] [facility] [address] [place] [address] Behavioral Therapist Licensed Clinical Professional Counselor 03/25/18 Kalli Lopez APRN, RADIO PRESENTER [address] [facility] [place] [address] Nurse Practitioner Advanced Practice Nurse 04/17/22 documented as of this encounter
--- OUTSIDE RECORDS SUMMARY | 2024-11-20 16:53 | XMS_ITS | Encounter Summary ---
Author Organization [facility] Address [address] [place] [address] Phone Care Team Providers Care Project Production Engineer Name Role Phone Below, Kiel Reed MD Unavailable [phone] Elba Velazquez MD Primary Care Provider [phone] Torey Saleh [facility] Unavailable Unavailable Jose Nichols MD Unavailable [phone] Reason for Visit * Reason Comments Medication Refill Encounter Details Date Type Department Care Team (Late st Contact Info) Description 04/02/2022 [place] [facility] [address] [place], [place] [address] Jose Nichols MD [address] [place] [address] Medication Refill Social History Tobacco Use Types Packs/Day Years [...] on file Legal Sex Female 3:08 AM SIGNALS ANALYST Gender Identity Not on file Sexual Orientation Not on file documented as of this encounter Miscellaneous Notes * Telephone Encounter - Elisabet Calderon RN - 04/07/2022 10:10 AM CDT Pictarinehart message sent to patient. * Telephone Encounter - Kalli Lopez APRN, CNP - 04/03/2022 3:03 PM CDT Signed, patient should ask the provider who diagnosed her as to remove this. I signed Clonazepam but not possible to be 103 weeks . Received this warning and it will continue to pop up if not removed. * Telephone Encounter - Irvin Duarte RN - 04/02/2022 3:54 PM CDT Refill request received for Clonazepam 0.5mg. CORI: 03/03/2022 NOV: 04/08/2022 Last Ordered: 02/25/2022, #90 with no RF [place]: 02/25/2022 Medication pended and routed for review. * Telephone Encounter - Irvin Duarte RN - 04/02/2022 3:54 PM CDT ----- Message from Yoli Mullins sent at 04/02/2022 3:33 PM CDT ----- Regarding: Refill Follow Up Loni [phone] (home) Dr. Nichols transfer to [facility] Patient is following up to make sure we received fax from pharmacy. [place] Irma You is sending refill request for Clonazepam. NOV: 04/08/22 * Telephone Encounter - Elisabet Calderon RN - 04/02/2022 3:43 PM CDT Requested Prescriptions Pending Prescriptions Disp Refills ??? clonazePAM (KlonoPIN) 0.5 MG Tablet [Pharmacy Med Name: CLONAZEPAM 0.5MG TABLETS] 90 Tablet Sig: TAKE 1 TABLET BY MOUTH THREE TIMES DAILY NEEDED ANXIETY CORI: 12/13/2021 NOV: 04/08/2022 w Kalli SENIOR Last ordered: 02/25/2022 # 90 RF 0 Last [place] per [place]MP: 02/25/2022 Chart checked for accuracy. Medication pended and routed for review. documented in this encounter Plan of Treatment Not on file documented as of this encounter Visit Diagnoses Diagnosis Generalized anxiety disorder documented in this encounter Additional Health Concerns Assessment Noted Time PHQ-9 Depression Total Score: 18 019 1:00 PM CDT documented as of this encounter Care Teams Project Production Engineer Relationship Specialty Start Date End Date Elba Velazquez MD [address] [facility] [address] [place] [address] PCP - General Internal Medicine 05/08/17 01/26/23 Kiel Zelaya MD [address] [place] [address] Consulting Physician Orthopaedic Sports Medicine 09/08/16 Torey Saleh [facility] [address] [facility] [address] [place] [address] Behavioral Therapist Licensed Clinical Professional Counselor 03/25/18 Jose Nichols MD [address] [facility] [place] [address] Consulting Physician Psychiatry 08/23/21 04/16/22 documented as of this encounter
--- OUTSIDE RECORDS SUMMARY | 2024-11-20 16:53 | XMS_ITS | Encounter Summary ---
Author Organization [facility] Address [address] [place] [address] Phone Care Team Providers Care Sterilization Specialist Name Role Phone Below, Kiel Reed MD Unavailable [phone] Elba Velazquez MD Primary Care Provider [phone] Torey Saleh [facility] Unavailable Unavailable Jsoe Nichols MD Unavailable [phone] Reason for Visit * Reason Onset Date Comments Medication Refill 01/17/2022 Clonazepam Encounter Details Date Type Department Care Team (Late st Contact Info) Description 01/17/2022 Ref[facility] [place] Psych[facility]ry & Psychology [address] [place], [place] [address] Jose Nichols MD [address] [place], [place] [address] Medication Refill (Clonazepam) Social History Tobacco Use [...] on file Legal 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 Refill request received for Clonazepam 0.5 mg. CORI: 12/13/2021 NOV: 02/12/2022 Last Ordered: 12/13 #90 Medication pended and routed for review. CHANGE TECHNICIAN * Telephone Encounter - Aysha Mancini RN - 01/17/2022 11:52 AM CST ----- Message from Yoli Mullins sent at 01/17/2022 10:34 AM OIL CHANGE TECHNICIAN ----- Regarding: Refill Request Loni [phone] (home) Dr. Nichols Requesting refill for Clonazepam and Adderall to [facility] in [place] on [address]. Patient thinks they have one for Geodon; will call back later if not. Patient would like to picker feeder today if possible. NOV: 02/12/22 CHANGE TECHNICIAN documented in this encounter Plan of Treatment Not on file documented as of this encounter Visit Diagnoses Diagnosis Generalized anxiety disorder documented in this encounter Additional Health Concerns Assessment Noted Time PHQ-9 Depression Total Score: 18 019 1:00 PM CDT documented as of this encounter Care Teams Sterilization Specialist Relationship Specialty Start Date End Date Elba Velazquez MD [address] [facility] [address] [place] [address] PCP - General Internal Medicine 05/08/17 01/26/23 Kiel Zelaya MD [address] [facility] [place] [address] Consulting Physician Orthopaedic Sports Medicine 09/08/16 Torey Saleh [facility] [address] [facility] [address] [place] [address] Behavioral Therapist Licensed Clinical Professional Counselor 03/25/18 Jose Nichols MD [address] [facility], [place] [address] Consulting Physician Psychiatry 08/23/21 04/16/22 documented as of this encounter
--- OUTSIDE RECORDS SUMMARY | 2024-11-20 16:53 | XMS_ITS | Encounter Summary ---
Author Organization [facility] Address [address] [place] [address] Phone Care Team Providers Care Coloring Machine Operator Name Role Phone Below, Kiel Reed MD Unavailable [phone] Elba Velazquez MD Primary Care Provider [phone] Torey Saleh [facility] Unavailable Unavailable Kalli Lopez APRN, SAP ARCHITECT Unavailable [phone] Reason for Visit * Reason Onset Date Comments Medication Refill 07/15/2022 Adderall 20 mg Encounter Details Date Type Department Care Team (Late st Contact Info) Description 07/15/2022 [facility]ill [facility] [address] [place], [place] [address] Kalli Lopez APRN, SAP ARCHITECT [address] [place], [place] [address] Medication Refill (Adderall 20 mg) Social History Tobacco Use Types Packs/Day [...] file Legal Sex Female 3:08 AM DIRECTOR PAID MEDIA Gender Identity Not on file Sexual Orientation Not on file documented as of this encounter Miscellaneous Notes * Telephone Encounter - Pita Baires RN - 07/15/2022 3:37 PM CDT Refill request received for Adderall 20 mg tablet. CORI: 04/18/2022 NOV: 07/24/2022 Last Ordered: 04/11/2022 60 tab 0 refills [place] written 03/12/2022 dispensed 04/18/2022 Medication pended and routed for review. * Telephone Encounter - Pita Baires RN - 07/15/2022 3:32 PM CDT ----- Message from Rich Hussein sent at 07/15/2022 11:29 AM CDT ----- Loni [phone] (home) Kalli Refill on adderall 20mg - [id number] [place], [place] - [address] [facility] [address] 07/24/22 documented in this encounter Plan of Treatment Not on file documented as of this encounter Visit Diagnoses Diagnosis Attention deficit hyperactivity disorder (ADHD), combined type documented in this encounter Additional Health Concerns Assessment Noted Time PHQ-9 Depression Total Score: 18 019 1:00 PM CDT documented as of this encounter Care Teams Coloring Machine Operator Relationship Specialty Start Date End Date Elba Velazquez MD [address] [place] [address] PCP - General Internal Medicine 05/08/17 01/26/23 Below, Kiel Reed MD [address] [facility] [place] [id number] Consulting Physician Orthopaedic Sports Medicine 09/08/16 Torey Saleh, [facility] [address] [facility] [address] [place] [address] Behavioral Therapist Licensed Clinical Professional Counselor 03/25/18 Kalli Lopez, UNIFORM PATROL POLICE OFFICER, SAP ARCHITECT [address] [facility] [place] [address] Nurse Practitioner Advanced Practice Nurse 04/17/22 documented as of this encounter
--- OUTSIDE RECORDS SUMMARY | 2024-11-20 16:53 | XMS_ITS | Encounter Summary ---
Author Organization [facility] Address [address] [place] [address] Phone Care Team Providers Care Blacktop Paver Operator Name Role Phone Below, Kiel Reed MD Unavailable [phone] Elba Velazquez MD Primary Care Provider [phone] Torey Saleh [facility] Unavailable Unavailable Kalli Lopez APRN, REFRIGERATION LEAD Unavailable Reason for Visit * Reason Comments Follow-up Attention deficit hy peractivity disorder (ADHD), combined type Encounter Details Date Type Department Care Team (Latest Contact Info) Description 12/08/2022 1:30 PM PIPING DRAFTER Office Visit [facility] Psychiatry & Psychology [address], [place] [address] Kalli Lopez APRN, REFRIGERATION LEAD [address], [place] [address] Attention deficit hyperactivity disorder (ADHD), combined type (Primary Dx); Generalized anxiety disorder; Insomnia, unspecified type Discharge Disposition: Discharged to home or Selfcare Social History Tobacco Use Types Packs/Day Years [...] on file Legal Sex Female 3:08 AM PIPING DRAFTER Gender Identity Not on file Sexual Orientation Not on file COVID-19 Exposure Response Date Recorded In the last 10 days, have yo u been in contact with someone who was confirmed or suspected to have Coronavirus/COVID-19? No / Unsure 12/08/2022 1:01 PM PIPING DRAFTER documented as of this encounter Last Filed Vital Signs Vital Sign Reading Time Taken Comments Blood Pressure 120/60 12/08/2022 1:05 PM PIPING DRAFTER Pulse 63 12/08/2022 1:05 PM PIPING DRAFTER Temperature - - Respiratory Rate - - Oxygen Saturation - - Inhaled Oxygen Concentration - - Weight 74.8 kg (165 lb) 12/08/2022 1:05 PM PIPING DRAFTER Height 172.7 cm (5' 8 ) 12/08/2022 1:05 PM PIPING DRAFTER Body Mass Index 25.09 12/08/2022 1:05 PM PIPING DRAFTER documented in this encounter Progress Notes * Karolina Varela - 12/08/2022 1:30 PM CST Reviewed patient current medication list with patient/family for side effects and compliance. No barriers to medication compliance identified. Patient states understanding of current medications. NG DRAFTER * Kalli Lopez APRN, CNP - 12/08/2022 1:30 PM CST PSYCHIATRIC PROGRESS NOTE Date of Service: 12/08/2022 Chief Complaint: Chief Complaint Patient presents with ??? Follow-up Attention deficit hyperactivity disorder (ADHD), combined type Interval History: Patient seen. Patient reported doing okay. patient reports her mood is ???fine?? her biggest complaint is sleep at night , says she can not sleep and has mind racing even when she is very tired. Coping okay with anxiety but has low motivation things seem ???louder than normal?? and that she feelson edge at times Adderall is helping her with focus at both work and at home. Did get a new job last month works and [employer] she works in the [employer]. Reportsappetite is good denies any garrett hypomania or impulsivity. Patient believes that she was never truly manic and had episodes of mood swings in college when things would go differently with relationships or with friends. Reports overall functioning well. Denies any suicidal or homicidal ideation. Denies seeing or hearing things that others do not and does not feel paranoid like anyone is out to get her or hurt her. Is in a relationship with her 2 year olds father but does not see that lasting long says they stayed together because they believe it is best for their 2-year-old. Patient appears in good spirits and did get to see her parents today before this appointment as they still live in town. Patient still plans to continue with cognitive behavioral therapy. Doing well on current medications Adderall and Klonopin. Reports she would like to try something for sleep so that she may still continue to use her Klonopin during the day as needed and as prescribed. Had been taking Klonopin 1.5 mg nightly to help with sleep but would prefer to try trazodone again. Compliant. ??? Patient has been compliant with medications. Patient would like adjustments to medications. Intention to harm self or others: no Side effects: no Medical issues: No acute medical issues.. Current stressors: New job, relationship with her child's father. PFSH: Social History Substance and Sexual Activity [...] Mental Status Exam: Appearance: Dressed appropriately. Good eye contact. Good hygiene and grooming. Orientation: AAOx4 Attitude: Cooperative Psychomotor: Normal Psychomotor Level, No abnormal movements, Normal Gait Speech: Normal rate and rhythm Thought Processes: Goal directed Affect: Appropriate Mood: Euthymic Thought Content: No suicidal ideation, No homicidal ideation, No delusions elicited Perception: No hallucination, No signs of hallucinations, Denied hallucination Insight: Adequate Judgment: Adequate Attention: Adequate Memory: Adequate Language: Intact Assessment and Plan: ICD-10-CM 1. Attention deficit hyperactivity disorder (ADHD), combined type F90.2 amphetamine-dextroamphetamine (Adderall) 20 MG Tablet 2. Generalized anxiety disorder F41.1 clonazePAM (KlonoPIN) 0.5 MG Tablet 3. Insomnia, unspecified type G47.00 ?? Condition: Patient has ongoing symptoms. Mostly problems with sleep. ?? Recommendations: Okay to continue Adderall 20 mg twice daily.. Start trazodone 50 mg nightly. ?? Continue Klonopin 0.5 mg 3 times daily as needed. ?? See me again in 6 months. We also discussed that she would need to see me once yearly in the office and agreed for it to be in the winter months. Next visit in May in office visit appointment. Patient agreeable. Patient agreement completed today. ?? Call with any questions, problems, concerns, [...] for Anxiety., Disp: 90 Tablet, Rfl: 0 ??? traZODone (DESYREL) 50 MG Tablet, Take 1 Tablet by mouth nightly., Disp: 90 Tablet, Rfl: 1 Labs: Labs below addressed by ordering provider [...] (L) 04/25/2019 BY: Kalli Lopez APRN, CNP 12/08/2022 1:29 PM PIPING DRAFTER NG DRAFTER documented in this encounter Plan of Treatment Not on file documented as of this encounter Visit Diagnoses Diagnosis Attention deficit hyperactivity disorder (ADHD), combined type- Primary Generalized anxiety disorder Insomnia, unspecified type documented in this encounter Additional Health Concerns Assessment Noted Time PHQ-9 Depression Total Score: 18 02/24/ 019 1:00 PM CDT documented as of this encounter Care Teams Blacktop Paver Operator Relationship Specialty Start Date End Date Elba Velazquez MD [address] [facility] [address] [place] [address] PCP - General Internal Medicine 05/08/17 01/26/23 BelowKiel MD [address] [place] [address] Consulting Physician Orthopaedic Sports Medicine 09/08/16 Torey Saleh PLASTICS PRODUCTION MACHINE OPERATOR [address] [facility] [address] [place] [address] Behavioral Therapist Licensed Clinical Professional Counselor 03/25/18 Kalli Lopez APRN, REFRIGERATION LEAD [address] [facility] [place] [address] Nurse Practitioner Advanced Practice Nurse 04/17/22 documented as of this encounter
--- OUTSIDE RECORDS SUMMARY | 2024-11-20 16:53 | XMS_ITS | Encounter Summary ---
Author Organization [facility] Address [address] [place] [address] Phone Care Team Providers Care Popped Corn Oven Attendant Name Role Phone Below, Kiel Reed MD Unavailable [phone] Elba Velazquez MD Primary Care Provider [phone] Torey Saleh [facility] Unavailable Unavailable Jose Nichols MD Unavailable [phone] Reason for Visit * Reason Comments Follow-up Bipolar disorder and anxiety Encounter Details Date Type Department Care Team (Latest Contact Info) Description 12/13/2021 3:15 PM INDUSTRIAL MANUFACTURING TECHNICIAN Telemedicine [facility] [address] [place], [place] [id number] Jose Nichols MD [address] [place], [place] [id number] Bipolar disorder in remission (HCC) (Primary Dx); Attention deficit hyperactivity disorder (ADHD), combined type; Generalized anxiety disorder Social History Tobacco Use Types Packs/Day Years [...] on file Legal Sex Female 3:08 AM INDUSTRIAL MANUFACTURING TECHNICIAN Gender Identity Not on file Sexual Orientation Not on file COVID-19 Exposure Response Date Recorded In the last month, have you been in contact with someone who was confirmed or suspected to have Coronavirus / COVID-19? No / Unsure 12/13/2021 3:14 PM INDUSTRIAL MANUFACTURING TECHNICIAN documented as of this encounter Progress Notes * Jose Nichols MD - 12/13/2021 3:15 PM CST Patient was assessed via online video. Patient verbally consented for this service to be performed and billed. PSYCHIATRIC PROGRESS NOTE Date of Service: 12/13/2021 Chief Complaint: Chief Complaint Patient presents with ??? Follow-up Bipolar disorder and anxiety Interval History: Patient was assessed via online video. Patient reported doing well. Bipolar has been under control. Patient denied manic symptoms. Patient denies significant depression. Patient reported that medications are helping with attention deficit. Patient reported that she has been coping with her anxiety.. Patient has been compliant with medications. Intention to harm self or others: no Side effects: no Medical issues: No acute medical issues.. Mental Status Exam: Appearance: Dressed appropriately. Good eye contact. Orientation: AAOx4 Attitude: Cooperative Psychomotor: Normal Psychomotor Level, No abnormal movements Speech: Normal rate and rhythm Thought Processes: Goal directed Affect: Appropriate Mood: Euthymic Thought Content: No suicidal ideation, No homicidal ideation, No delusions elicited Perception: No hallucination Insight: Adequate Judgment: Adequate Attention: Adequate Memory: Adequate Language: Intact Assessment and Plan: ??? Diagnoses: ICD-10-CM 1. Bipolar disorder in remission (HCC) F31.70 2. Attention deficit hyperactivity disorder (ADHD), combined type F90.2 amphetamine-dextroamphetamine (ADDERALL) 20 MG Tablet amphetamine-dextroamphetamine (Adderall) 20 MG Tablet amphetamine-dextroamphetamine (Adderall) 20 MG Tablet 3. Generalized anxiety disorder F41.1 clonazePAM (KlonoPIN) 0.5 MG Tablet ?? Assessment: Patient seems to be stable. ?? Recommendations: Continue current medications. ?? Supportive therapy provided. ?? Risks, benefits, and side effects of medications discussed. Discussed about alternatives and therisks of not receiving treatment. Patient verbalized understanding. ?? Emergency procedures discussed. Current Outpatient Medications: ??? [START ON 02/11/2022] amphetamine-dextroamphetamine (ADDERALL) 20 MG Tablet, Take 1 Tablet by mouth 2 times daily., Disp: 60 Tablet, Rfl: 0 ??? [START ON 01/12/2022] amphetamine-dextroamphetamine (Adderall) 20 MG Tablet, Take 1 Tablet by mouth 2 times daily., Disp: 60 Tablet, Rfl: 0 ??? amphetamine-dextroamphetamine (Adderall) 20 MG Tablet, Take 1 Tablet by mouth 2 times daily., Disp: 60 Tablet, Rfl: 0 ??? clonazePAM (KlonoPIN) 0.5 MG Tablet, Take 1 Tablet by mouth 3 times daily as needed for Anxiety., Disp: 90 Tablet, Rfl: 0 ??? ziprasidone (Geodon) 20 MG Capsule, Take 1 Capsule by mouth daily (with dinner)., Disp: 30 Capsule, Rfl: 3 Labs: Lab Results Component Value Date WBC 7.07 [...] Value Date LITHIUM 0.4 (L) 04/25/2019 BY: Jose Nichols MD 12/17/2021 2:26 PM INDUSTRIAL MANUFACTURING TECHNICIAN STRIAL MANUFACTURING TECHNICIAN documented in this encounter Plan of Treatment Not on file documented as of this encounter Visit Diagnoses Diagnosis Bipolar disorder in remission (HCC)- Primary Bipolar disorder, unspecified Attention deficit hyperactivity disorder (ADHD), combined type Generalized anxiety disorder documented in this encounter Additional Health Concerns Assessment Noted Time PHQ-9 Depression Total Score: 18 019 1:00 PM CDT documented as of this encounter Care Teams Popped Corn Oven Attendant Relationship Specialty Start Date End Date Elba Velazquez MD [address] [facility] [address] [place] [address] PCP - General Internal Medicine 05/08/17 01/26/23 Kiel Zelaya MD [address] [place] [address] Consulting Physician Orthopaedic Sports Medicine 09/08/16 Torey Saleh [facility] [address] [place] [address] Behavioral Therapist Licensed Clinical Professional Counselor 03/25/18 Jose Nichols MD [address] [facility] [place] [address] Consulting Physician Psychiatry 08/23/21 04/16/22 documented as of this encounter
--- OUTSIDE RECORDS SUMMARY | 2024-11-20 16:54 | XMS_ITS | Encounter Summary ---
Author Organization [employer] Care Team Providers Care Director Of Quality Control Name Role Phone Below, Kiel Reed MD Unavailable [phone] Elba Velazquez MD Primary Care Provider [phone] Torey Saleh [facility] Unavailable Unavailable Encounter Details Date Type Department Care Team (Latest Contact Info) Description 08/07/2021 Travel Social History Tobacco Use Types Packs/Day [...] on file Legal Sex Female 3:08 AM TERRAZZO SUPERVISOR Gender Identity Not on file Sexual Orientation Not on file COVID-19 Exposure Response Date Recorded In the last month, have you been in contact with someone who was confirmed or suspected to have Coronavirus / COVID-19? No / Unsure 08/07/2021 11:14 AM CDT documented as of this encounter Plan of Treatment Not on file documented as of this encounter Visit Diagnoses Not on filedocumented in this encounter Additional Health Concerns Assessment Noted Time PHQ-9 Depression Total Score: 18 019 1:00 PM CDT documented as of this encounter Care Teams Director Of Quality Control Relationship Specialty Start Date End Date Elba Velazquez MD [address] [facility] [address] [place], [place] [address] PCP - General Internal Medicine 05/08/17 01/26/23 Below, Kiel Reed MD [address] [place], [place] [id number] Consulting Physician Orthopaedic Sports Medicine 09/08/16 Torey Saleh [facility] [address] [facility] [address] [place] [address] Behavioral Therapist Licensed Clinical Professional Counselor 03/25/18 documented as of this encounter
--- OUTSIDE RECORDS SUMMARY | 2024-11-20 16:54 | XMS_ITS | Encounter Summary ---
Author Organization [facility] Address [address] [place] [address] Phone Care Team Providers Care Radio Survey Worker Name Role Phone Below, Kiel Reed MD Unavailable [phone] Elba Velazquez MD Primary Care Provider [phone] Torey Saleh [facility] Unavailable Unavailable Encounter Details Date Type Department Care Team (Late st Contact Info) Description 03/13/2021 Documentation Only [facility] - Internal Medicine - [facility] [place] [address] [place] [address] Elba Velazquez MD [address] [facility] [address] [place] [address] Social History Tobacco Use Types Packs/Day Years [...] on file Legal Sex Female 3:08 AM THREADER Gender Identity Not on file Sexual Orientation Not on file COVID-19 Exposure Response Date Recorded In the last month, have you been in contact with someone who was confirmed or suspected to have Coronavirus / COVID-19? No / Unsure 03/05/2021 2:49 PM CDT documented as of this encounter Progress Notes * Betsy Carreno - 03/13/2021 1:20 PM CDT Attempted to call and schedule patient for overdue annual exam. documented in this encounter Plan of Treatment Not on file documented as of this encounter Visit Diagnoses Not on filedocumented in this encounter Additional Health Concerns Assessment Noted Time PHQ-9 Depression Total Score: 18 019 1:00 PM CDT documented as of this encounter Care Teams Radio Survey Worker Relationship Specialty Start Date End Date Elba Velazquez MD [address] [facility] [address] [place] [address] PCP - General Internal Medicine 05/08/17 01/26/23 BelowKiel MD [address] [place] [address] Consulting Physician Orthopaedic Sports Medicine 09/08/16 Torey Saleh [facility] [address] [facility] [address] [place] [address] Behavioral Therapist Licensed Clinical Professional Counselor 03/25/18 documented as of this encounter
--- OUTSIDE RECORDS SUMMARY | 2024-11-20 16:54 | XMS_ITS | Encounter Summary ---
Author Organization [employer] Care Team Providers Care Machine Clothing Man Name Role Phone Below, Kiel Reed MD Unavailable [phone] Elba Velazquez MD Primary Care Provider [phone] Torey Saleh [facility] Unavailable Unavailable Encounter Details Date Type Department Care Team (Latest Contact Info) Description 04/26/2021 Travel Social History Tobacco Use Types Packs/Day [...] on file Legal Sex Female 3:08 AM LASTING ROOM SUPERVISOR Gender Identity Not on file Sexual Orientation Not on file COVID-19 Exposure Response Date Recorded In the last month, have you been in contact with someone who was confirmed or suspected to have Coronavirus / COVID-19? No / Unsure 04/26/2021 2:13 PM CDT documented as of this encounter Plan of Treatment Not on file documented as of this encounter Visit Diagnoses Not on filedocumented in this encounter Additional Health Concerns Assessment Noted Time PHQ-9 Depression Total Score: 18 019 1:00 PM CDT documented as of this encounter Care Teams Machine Clothing Man Relationship Specialty Start Date End Date Elba Velazquez MD [address] [facility] [address] [place], [place] [address] PCP - General Internal Medicine 05/08/17 01/26/23 Below, Kiel Reed MD [address] [place], [place] [id number] Consulting Physician Orthopaedic Sports Medicine 09/08/16 Torey Saleh [facility] [address] [facility] [address] [place] [address] Behavioral Therapist Licensed Clinical Professional Counselor 03/25/18 documented as of this encounter
--- OUTSIDE RECORDS SUMMARY | 2024-11-20 16:54 | XMS_ITS | Encounter Summary ---
Author Organization [facility] Address [address] [place] [address] Phone Care Team Providers Care Fundraising Manager Name Role Phone Below, Kiel Reed MD Unavailable [phone] Elba Velazquez MD Primary Care Provider [phone] Torey Saleh [facility] Unavailable Unavailable Reason for Visit * Reason Onset Date Comments Care Management 07/25/2020 Cx MRI Encounter Details Date Type Department Care Team (Late st Contact Info) Description 07/25/2020 Telephone [facility] - Neurology - [place] [address] [place] [phone] Avis Mac DO [address] [place], [place] [address] Care Management (Cx MRI) Social History Tobacco Use Types Packs/Day Years [...] on file Legal Sex Female 3:08 AM STRUCTURER Gender Identity Not on file Sexual Orientation Not on file COVID-19 Exposure Response Date Recorded In the last month, have you been in contact with someone who was confirmed or suspected to have Coronavirus / COVID-19? No / Unsure 07/02/2020 7:32 AM CDT documented as of this encounter Miscellaneous Notes * Telephone Encounter - Jeni Hawkins RN - 07/25/2020 8:58 AM CDT Images from the original note were not included. Tamela Baca Julia A, DO; Jeni Hawkins RN ?? Just wanted to let you know that patient canceled her MRI due to following reason: Canceled Other patient is , and will postpone testing until after delivery unless an emergency arises. Dr Mac: FYI, please note and close encounter documented in this encounter Plan of Treatment Not on file documented as of this encounter Visit Diagnoses Not on filedocumented in this encounter Additional Health Concerns Assessment Noted Time PHQ-9 Depression Total Score: 18 019 1:00 PM CDT documented as of this encounter Care Teams Fundraising Manager Relationship Specialty Start Date End Date Elba Velazquez MD [address] [facility] [address] [place] [address] PCP - General Internal Medicine 05/08/17 01/26/23 Kiel Zelaya MD [address] [place] [address] Consulting Physician Orthopaedic Sports Medicine 09/08/16 Torey Saleh [facility] [address] [facility] [address] [place] [address] Behavioral Therapist Licensed Clinical Professional Counselor 03/25/18 documented as of this encounter
--- OUTSIDE RECORDS SUMMARY | 2024-11-20 16:54 | XMS_ITS | Encounter Summary ---
Author Organization [facility] Address [address] [place] [address] Phone Care Team Providers Care It Security Administrator Name Role Phone Below, Kiel Reed MD Unavailable [phone] Elba Velazquez MD Primary Care Provider [phone] Torey Saleh [facility] Unavailable Unavailable Reason for Visit * Reason Onset Date Comments Medication Management 02/10/2020 Clonazepam Encounter Details Date Type Department Care Team (Late st Contact Info) Description 02/10/2020 Telephone [facility] Psychiatry & Psychology [address] [place], [place] [phone] Jose Nichols MD [address] [place], [place] [phone] Medication Management (Clonazepam) Social History Tobacco Use Types Packs/Day [...] on file Legal Sex Female 3:08 AM PASSENGER ATTENDANT Gender Identity Not on file Sexual Orientation Not on file documented as of this encounter Miscellaneous Notes * Telephone Encounter - Aysha Mancini RN - 02/10/2020 1:05 PM CDT Patient advised Clonazepam was sent to her pharmacy on the . She will call for the refill. documented in this encounter Plan of Treatment Not on file documented as of this encounter Visit Diagnoses Not on filedocumented in this encounter Additional Health Concerns Assessment Noted Time PHQ-9 Depression Total Score: 18 019 1:00 PM CDT documented as of this encounter Care Teams It Security Administrator Relationship Specialty Start Date End Date Elba Velazquez MD [address] [facility] [address] [place] [address] PCP - General Internal Medicine 05/08/17 01/26/23 Kiel Zelaya MD [address] [place], [place] [address] Consulting Physician Orthopaedic Sports Medicine 09/08/16 Torey Saleh [facility] [address] [facility] [address] [place] [address] Behavioral Therapist Licensed Clinical Professional Counselor 03/25/18 documented as of this encounter
--- OUTSIDE RECORDS SUMMARY | 2024-11-20 16:54 | XMS_ITS | Encounter Summary ---
Author Organization [facility] Address [address] [place] [address] Phone Care Team Providers Care Spike Machine Feeder Name Role Phone Below, Kiel Reed MD Unavailable [phone] Elba Velazquez MD Primary Care Provider [phone] Torey Saleh [facility] Unavailable Unavailable Reason for Visit * Reason Onset Date Comments Medication Refill 05/10/2020 adderall and c lonazepam Encounter Details Date Type Department Care Team (Late st Contact Info) Description 05/10/2020 Refill [facility] [place] Psychiatry & Psychology [address], [place] [address] Jose Nichols MD [address] [place] [address] Medication Refill (adderall and clonazepam ) Social History Tobacco Use Types Packs/Day [...] on file Legal Sex Female 3:08 AM VAT WASHER Gender Identity Not on file Sexual Orientation Not on file COVID-19 Exposure Response Date Recorded In the last month, have you been in contact with someone who was confirmed or suspected to have Coronavirus / COVID-19? No / Unsure 04/17/2020 1:45 PM CDT documented as of this encounter Miscellaneous Notes * Telephone Encounter - Roberta Beard RN - 05/10/2020 10:56 AM CDT Refill request received for Clonazepam 0.5 mg TID Adderall 30 mg BID CORI: 03/05/2020 NOV: 07/05/2020 Last Ordered: Clonazepam 04/10/20 #90 with 0 refills. Adderall 04/12/20 #60 with 0 refills. Medication pended and routed for review. * Telephone Encounter - Roberta Beard RN - 05/10/2020 10:51 AM CDT ----- Message from Krys Perez sent at 05/10/2020 10:32 AM CDT ----- Dr. Nichols [phone] Needs her Adderall and Clonazepam. Uses [facility] in [place]. documented in this encounter Plan of Treatment Not on file documented as of this encounter Visit Diagnoses Diagnosis Attention deficit hyperactivity disorder (ADHD), combined type documented in this encounter Additional Health Concerns Assessment Noted Time PHQ-9 Depression Total Score: 18 019 1:00 PM CDT documented as of this encounter Care Teams Spike Machine Feeder Relationship Specialty Start Date End Date Elba Velazquez MD [address] [place] [address] PCP - General Internal Medicine 05/08/17 01/26/23 Below, Kiel Reed MD [address] [place] [address] Consulting Physician Orthopaedic Sports Medicine 09/08/16 Torey Saleh [facility] [address] [facility] [address] [place] [address] Behavioral Therapist Licensed Clinical Professional Counselor 03/25/18 documented as of this encounter
--- OUTSIDE RECORDS SUMMARY | 2024-11-20 16:54 | XMS_ITS | Encounter Summary ---
Author Organization [facility] Address [address] [place] [address] Phone Care Team Providers Care Mailroom Courier Name Role Phone Below, Kiel Reed MD Unavailable [phone] Elba Velzaquez MD Primary Care Provider [phone] Torey Saleh [facility] Unavailable Unavailable Reason for Visit * Reason Onset Date Comments Medication Management 04/10/2020 Update Encounter Details Date Type Department Care Team (Late st Contact Info) Description 04/10/2020 Telephone [facility] [address], [place] [id number] Jose Nichols MD [address], [place] [id number] Medication Management (Update) Social History Tobacco Use Types Packs/Day Years [...] on file 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 No / Unsure 04/17/2020 1:45 PM CDT documented as of this encounter Miscellaneous Notes * Telephone Encounter - Aysha Mancini RN - 04/18/2020 1:23 PM CDT Patient verbalized understanding and agreed to recommendations. * Telephone Encounter - Armida Bunch RN - 04/12/2020 4:15 PM CDT Left message for patient to call the office. * Telephone Encounter - Jose Nichols MD - 04/12/2020 3:57 PM CDT Will not adjust medications since patient is happy with her medications * Telephone Encounter - Aysha Mancini RN - 04/12/2020 11:55 AM CDT Update: Patient states that she has never felt so good as she does now on this medication regimen. With theTrazodone she is able to sleep good and get up in the morning with out feeling like a zombie, whichis how she felt on Trazodone. She is really happy with the Abilify and feels stable. Denies and depression or garrett. Reports that you wanted to increase the Trazodone. She is ok with that but is happy with her current dose. Please advise. * Telephone Encounter - Armida Bunch RN - 04/10/2020 2:30 PM CDT Left message for patient to call the office. Patient wants to give us an update. Refills pended in refill encounter. * Telephone Encounter - Armida Bunch RN - 04/10/2020 2:26 PM CDT ----- Message from Krys Perez sent at 04/10/2020 12:24 PM CDT ----- Dr. Nichols [phone] Needs her Clonazepam and Adderall and also wants to switch pharmacy for both medications to [facility] [place] [phone] Also was to give up date on how she is doing. documented in this encounter Plan of Treatment Not on file documented as of this encounter Visit Diagnoses Not on filedocumented in this encounter Additional Health Concerns Assessment Noted Time PHQ-9 Depression Total Score: 18 019 1:00 PM CDT documented as of this encounter Care Teams Mailroom Courier Relationship Specialty Start Date End Date Elba Velazquez MD [address] [facility] [address] [place], [place] [address] PCP - General Internal Medicine 05/08/17 01/26/23 Kiel Zelaya MD [address] [place] [address] Consulting Physician Orthopaedic Sports Medicine 09/08/16 Torey Saleh [facility] [address] [facility] [address] [place] [address] Behavioral Therapist Licensed Clinical Professional Counselor 03/25/18 documented as of this encounter
--- OUTSIDE RECORDS SUMMARY | 2024-11-20 16:54 | XMS_ITS | Encounter Summary ---
Author Organization [facility] Address [address] [place] [address] Phone Care Team Providers Care Telemarketer Supervisor Name Role Phone Below, Kiel Reed MD Unavailable [phone] Elba Velazquez MD Primary Care Provider [phone] Torey Saleh [facility] Unavailable Unavailable Reason for Visit * Reason Comments Follow-up Bipolar disorder and anxiety Encounter Details Date Type Department Care Team (Late st Contact Info) Description 02/01/2021 9:15 AM TELEVISION NEWS PHOTOGRAPHER Telemedicine [facility] [place]ry & Psychology [address] [place], [place] [address] Jose Nichols MD [address] [place], [place] [address] Bipolar disorder in remission (HCC) (Primary Dx); Generalized anxiety disorder Social History Tobacco Use [...] on file Legal 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 No / Unsure 02/01/2021 7:10 AM TELEVISION NEWS PHOTOGRAPHER documented as of this encounter Progress Notes * Jose Nichols MD - 02/01/2021 9:15 AM CST Patient was assessed via online video. Patient verbally consented for this service to be performed and billed. PSYCHIATRIC PROGRESS NOTE Date of Service: 02/01/2021 Chief Complaint: Chief Complaint Patient presents with ??? Follow-up Bipolar disorder and anxiety Interval History: Patient was assessed via online video. Patient reported doing okay. Patient gave 3 weeks ago.Patient has not been receiving any psychiatric medications. Patient denied manic symptoms. Patient denied significant depression. Patient denied symptoms of depression. Patient feels good about the and she reported that she has enough support. Patient is not receiving psychiatric medications, and she reported that she is breast feeding. Intention to harm self or others: no Side effects: no Medical issues: No acute medical issues.. Mental Status Exam: Appearance: Dressed appropriately. Good eye contact. Orientation: AAOx4 Attitude: Cooperative Psychomotor: Normal Psychomotor Level, No abnormal movements Speech: Normal rate and rhythm Thought Processes: Goal directed Affect: Appropriate Mood: Euthymic Thought Content: No suicidal ideation, No homicidal ideation, No delusions Perception: No hallucination Insight: Adequate Judgment: Adequate Attention: Adequate Memory: Adequate Language: Intact Assessment and Plan: ??? Diagnoses: ICD-10-CM 1. Bipolar disorder in remission (HCC) F31.70 2. Generalized anxiety disorder F41.1 ?? Assessment: Patient seems to be stable. ?? Recommendations: Patient does not want to be on psychiatric medications at this time because sheis breast feeding. I will see patient in 1 months to reassess symptoms. ?? Supportive therapy provided. ?? Risks, benefits, and side effects of medications discussed. Discussed about alternatives and therisks of not receiving treatment. Patient verbalized understanding. ?? Emergency procedures discussed. No current outpatient medications on file. Labs: Lab Results Component Value Date WBC [...] 0.4 (L) 04/25/2019 BY: Jose Nichols MD 02/01/2021 10:24 AM TELEVISION NEWS PHOTOGRAPHER VISION NEWS PHOTOGRAPHER documented in this encounter Plan of Treatment Not on file documented as of this encounter Visit Diagnoses Diagnosis Bipolar disorder in remission (HCC)- Primary Bipolar disorder, unspecified Generalized anxiety disorder documented in this encounter Additional Health Concerns Assessment Noted Time PHQ-9 Depression Total Score: 18 04/04/2 019 1:00 PM CDT documented as of this encounter Care Teams Telemarketer Supervisor Relationship Specialty Start Date End Date Elba Velazquez MD [address] [facility] [address] [place] [address] PCP - General Internal Medicine 05/08/17 01/26/23 BelowKiel MD [address] [place] [address] Consulting Physician Orthopaedic Sports Medicine 09/08/16 Torey Saleh [facility] [address] [facility] [address] [place] [address] Behavioral Therapist Licensed Clinical Professional Counselor 03/25/18 documented as of this encounter
--- OUTSIDE RECORDS SUMMARY | 2024-11-20 16:54 | XMS_ITS | Encounter Summary ---
Author Organization [facility] Address [address] [place] [address] Phone Care Team Providers Care Piano Refinisher Name Role Phone Below, Kiel Reed MD Unavailable [phone] Elba Velazquez MD Primary Care Provider [phone] Torey Saleh [facility] Unavailable Unavailable Jose Nichols MD Unavailable [phone] Reason for Visit * Reason Onset Date Comments Medication Refill 10/08/2021 adderall, clon azepam and geodon Encounter Details Date Type Department Care Team (Late st Contact Info) Description 10/08/2021 [facility] [facility] [place] Psychology [address], [place] [id number] Jose Nichols MD [address] [place] [address] Medication Refill (adderall, clonazepam and geodon) Social History Tobacco Use Types [...] on file 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 CORI: 08/27/2021 NOV: 10/16/2021 Last Ordered: Clonazepam: 90 tab 0 [place] 08/27/2021 dispensed 09/03/2021 Pharmacy states that they have an Adderall and Geodon prescription they can fill for patient. Patient notified. Medication pended and routed for review. ER VEGETABLE ER VEGETABLE ER VEGETABLE * Telephone Encounter - Pita Baires RN - 10/08/2021 2:57 PM FARMER VEGETABLE ----- Message from Rich Hussein sent at 10/08/2021 2:28 PM FARMER VEGETABLE ----- Loni [phone] (home) Simone Refill adderall, clonazepam, geodon [facility] [place] NOV 10/16/21 ER VEGETABLE documented in this encounter Plan of Treatment Not on file documented as of this encounter Visit Diagnoses Diagnosis Generalized anxiety disorder documented in this encounter Additional Health Concerns Assessment Noted Time PHQ-9 Depression Total Score: 18 02/24/ 019 1:00 PM CDT documented as of this encounter Care Teams Piano Refinisher Relationship Specialty Start Date End Date Elba Velazquez MD [address] [place] [address] PCP - General Internal Medicine 05/08/17 01/26/23 Below, Kiel Reed MD [address] [facility] [place], [place] [address] Consulting Physician Orthopaedic Sports Medicine 09/08/16 Torey Saleh, [facility] [address] [place] [address] Behavioral Therapist Licensed Clinical Professional Counselor 03/25/18 Jose Nichols MD [address] [facility] [place] [address] Consulting Physician Psychiatry 08/23/21 04/16/22 documented as of this encounter
--- OUTSIDE RECORDS SUMMARY | 2024-11-20 16:54 | XMS_ITS | Encounter Summary ---
Author Organization [facility] Address [address] [place] [address] Phone Care Team Providers Care Cloth Drier Name Role Phone Below, Kiel Reed MD Unavailable [phone] Elba Velazquez MD Primary Care Provider [phone] Torey Saleh [facility] Unavailable Unavailable Reason for Visit * Reason Comments Follow-up bipolar Encounter Details Date Type Department Care Team (Latest Contact Info) Description 08/07/2021 11:15 AM CDT Telemedicine [facility] Psychiatry & Psychology [address] [place], [place] [id number] Jose Nichols MD [address] [place], [place] [address] Bipolar disorder in remission (HCC) (Primary Dx); [...] on file 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 No / Unsure 08/07/2021 11:14 AM CDT documented as of this encounter Progress Notes * Ashleigh Singh - 08/07/2021 11:15 AM CDT * Jose Nichols MD - 08/07/2021 11:15 AM CDT Patient was assessed via online video. Patient verbally consented for this service to be performed and billed. PSYCHIATRIC PROGRESS NOTE Date of Service: 08/07/2021 Chief Complaint: Chief Complaint Patient presents with ??? Follow-up bipolar Interval History: Patient was assessed via online video. Patient reported ongoing symptoms. Patient reported that she is not having symptoms of bipolar at this time. Patient was not taking medication when she was , but she call the office of July 30 and requested to be placed back on medications. Patient reported that she stopped breast feeding. I started patient back on Abilify but apparently patient did not tolerate Abilify despite that she was able to tolerate Abilify before. She reported dizziness, nausea, and blurred vision. Patient stopped Abilify last week, and she reported that it took her few days to get better. Patient would like to go back on Adderall and Klonopin. Patient reported having couple of panic attacks daily. Patient also reported having problems with her attention. Patient is starting a new job on August 19. Patient is not receiving any psychiatric medication at this time. Intention to harm self or others: no [...] No hallucination Insight: Adequate Judgment: Adequate Attention: Patient reported difficulty focusing Memory: Adequate Language: Intact Assessment and Plan: ??? Diagnoses: ICD-10-CM 1. Bipolar disorder in remission (HCC) F31.70 2. Attention deficit hyperactivity disorder (ADHD), combined type F90.2 amphetamine-dextroamphetamine (Adderall) 10 MG Tablet 3. Generalized anxiety disorder F41.1 clonazePAM (KlonoPIN) 0.5 MG Tablet ?? Assessment: Patient has ongoing symptoms. ?? Recommendations: I will start patient on Geodon 20 mg daily with dinner. Will restart Adderall at 10 mg twice daily, and Klonopin 0.5 mg twice daily as needed. ?? Supportive therapy provided. ?? Risks, benefits, and side effects of medications discussed. Discussed about alternatives and therisks of not receiving treatment. Patient verbalized understanding. ?? Emergency procedures discussed. Current Outpatient Medications: ??? amphetamine-dextroamphetamine (Adderall) 10 MG Tablet, Take 1 Tablet by mouth 2 times daily., Disp: 60 Tablet, Rfl: 0 ??? clonazePAM (KlonoPIN) 0.5 MG Tablet, Take 1 Tablet by mouth 2 times daily as needed for Anxiety., Disp: 60 Tablet, Rfl: 0 ??? ziprasidone (Geodon) 20 MG Capsule, Take 1 Capsule by mouth daily (with dinner). Cancel previous prescription of Abilify, Disp: 30 Capsule, Rfl: 2 Labs: Lab Results Component Value Date WBC [...] 0.4 (L) 04/25/2019 BY: Jose Nichols MD 08/07/2021 11:50 AM CDT documented in this encounter Plan of [...] documented as of this encounter Care Teams Cloth Drier Relationship Specialty Start Date End Date Elba Velazquez MD [address] [place] [address] PCP - General Internal Medicine 05/08/17 01/26/23 Kiel Zelaya MD [address] [place], [place] [id number] Consulting Physician Orthopaedic Sports Medicine 09/08/16 Torey Saleh, [facility] [address] [facility] [address] [place] [address] Behavioral Therapist Licensed Clinical Professional Counselor 03/25/18 documented as of this encounter
--- OUTSIDE RECORDS SUMMARY | 2024-11-20 16:54 | XMS_ITS | Encounter Summary ---
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
--- OUTSIDE RECORDS SUMMARY | 2024-11-20 16:54 | XMS_ITS | Encounter Summary ---
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
--- OUTSIDE RECORDS SUMMARY | 2024-11-20 16:54 | XMS_ITS | Encounter Summary ---
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 No / Unsure 02/01/2021 7:10 AM SUPERVISOR SHIPFITTERS documented as of this encounter Plan of Treatment Not on file documented as of this encounter Visit Diagnoses Not on filedocumented in this encounter Additional Health Concerns Assessment Noted Time PHQ-9 Depression Total Score: 18 019 1:00 PM CDT documented as of this encounter Care Teams Honing Machine Set Up Operator Tool Relationship Specialty Start Date End Date Elba Velazquez MD [address] [facility] [address] [place] [address] PCP - General Internal Medicine 05/08/17 01/26/23 Below, Kiel Reed MD [address] [place] [address] Consulting Physician Orthopaedic Sports Medicine 09/08/16 Torey Saleh [facility] [address] [facility] [facility] [address] [place] [address] Behavioral Therapist Licensed Clinical Professional Counselor 03/25/18 documented as of this encounter
--- OUTSIDE RECORDS SUMMARY | 2024-11-20 16:54 | XMS_ITS | Encounter Summary ---
Author Organization [facility] Address [address] [place] [address] Phone Care Team Providers Care Psych Arnp Name Role Phone Below, Kiel Reed MD Unavailable [phone] Elba Velazquez MD Primary Care Provider [phone] Torey Saleh [facility] Unavailable Unavailable Reason for Visit * Reason Onset Date Comments Medication Refill 04/10/2020 clonzapema and Adderall Encounter Details Date Type Department Care Team (Late st Contact Info) Description 04/10/2020 [facility] [address] [place], [place] [address] Jose Nichols MD [address] [place], [place] [id number] Medication Refill (clonzapema and Adderall ) Social History Tobacco Use Types Packs/Day [...] on file 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 Patient reports she is changing pharmacies. Refill request received for Clonazepam 0.5 mg one tab 3 times daily and Adderall 30 mg tab, one tab twice a day. CORI: Visit date not found NOV: 07/05/2020 Last Ordered: Adderall: 03/13/2020 # 60. Clonazepam : 03/08/2020 #90 + 0 ref. This RN cancelled the 04/12/2020 Adderall order via prescriber voice mail at [facility] in [place], [place]. Medication pended and routed for review. * Telephone Encounter - Armida Bunch RN - 04/10/2020 2:31 PM CDT Message from Krys Perez sent at 04/10/2020 12:24 PM CDT ----- Dr. Nichols [phone] Needs her Clonazepam and Adderall and also wants to switch pharmacy for both medications to [facility] [phone] documented in this encounter Plan of Treatment Not on file documented as of this encounter Visit Diagnoses Diagnosis Attention deficit hyperactivity disorder (ADHD), combined type documented in this encounter Additional Health Concerns Assessment Noted Time PHQ-9 Depression Total Score: 18 019 1:00 PM CDT documented as of this encounter Care Teams Psych Arnp Relationship Specialty Start Date End Date Elba Velazquez MD [address] [place] [address] PCP - General Internal Medicine 05/08/17 01/26/23 Below, Kiel Reed MD [address] [place] [address] Consulting Physician Orthopaedic Sports Medicine 09/08/16 Torey Saleh [facility] [address] [facility] [address] [place] [address] Behavioral Therapist Licensed Clinical Professional Counselor 03/25/18 documented as of this encounter
--- OUTSIDE RECORDS SUMMARY | 2024-11-20 16:54 | XMS_ITS | Encounter Summary ---
Author Organization [facility] Address [address] [place] [address] Phone Care Team Providers Care Bilingual Instructor Name Role Phone Below, Kiel Reed MD Unavailable [phone] Elba Vleazquez MD Primary Care Provider [phone] Torey Saleh [facility] Unavailable Unavailable Reason for Visit * Reason Onset Date Comments Medication Management 04/16/2021 Encounter Details Date Type Department Care Team (Late st Contact Info) Description 04/16/2021 Telephone [facility] [address], [place] [id number] Jose Nichols MD [address] [place], [place] [id number] Medication Management Social History Tobacco Use Types [...] on file 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 No / Unsure 04/26/2021 2:13 PM CDT documented as of this encounter Miscellaneous Notes * Telephone Encounter - Maryan Clayton RN - 05/07/2021 2:00 PM CDT Patient had telemedicine visit with provider on 04.26.21 * Telephone Encounter - Pita Baires RN - 04/18/2021 11:14 AM CDT Left message for patient to call office. Please let her know that Dr. Nichols is going to wait to prescribe Adderall and clonazepam until NOV. * Telephone Encounter - Jose Nichols MD - 04/16/2021 4:11 PM CDT Noted * Telephone Encounter - Pita Baires RN - 04/16/2021 3:39 PM CDT Patient seemed upset when RN told her MD was waiting to start clonazepam until he saw her. Patient has had anxiety with finishing grad school patient feels overwhelmed and anxious most of the time has been going on for about over the last few weeks. has been stressful as well and RN advised her that hopefully will help her situation.She has not been sleeping well due to adjusting with a . She states she is constantly on edge and is unable to sit and do a simple task due to her anxiety being so high. Did move her appointment to 04/26 form 05/02. Needed video visit due to living in [place] for grad school. Routed to MD to inform. Per Dr. Nichols's written order for Abilify 10 mg nightly for #30 and 1 refill signed and sent to pharmacy. * Telephone Encounter - Jose Nichols MD - 04/16/2021 3:19 PM CDT Start Abilify 10 mg nightly. Send 1 months prescription with 1 refill Will discuss about starting clonazepam or Adderall during next visit * Telephone Encounter - Pita Baires RN - 04/16/2021 2:52 PM CDT Patient states she wants to go back on her medications and she is going to stop . She states that she does not want to start back on the full dose of Adderall she was on before at first. Routed to MD to inform. * Telephone Encounter - Jose Nichols MD - 04/16/2021 2:52 PM CDT I will assess patient during next visit. Patient to call the office case of worsening of symptoms * Telephone Encounter - Pita Baires RN - 04/16/2021 2:49 PM CDT Images from the original note were not included. Message Received: Today Anna Santizo Psych Nurse Pool Caller: Unspecified (Today, 12:45 PM) Erika [phone] Dr Nichols She is wanting to get back on her medication after . 05/02/21 * Telephone Encounter - Roberta Beard RN - 04/16/2021 10:47 AM CDT Returned patients call. She states she does not need anything at this time. States she needs to decide if she is going to completely stop before deciding if she is going to start medications. Patient states she has no thoughts to harm herself of anyone else. Routed to provider for informational purposes. * Telephone Encounter - Roberta Beard RN - 04/16/2021 10:33 AM CDT ----- Message from Rich Hussein sent at 04/16/2021 8:08 AM CDT ----- Loni [phone] Simone Had her baby in Dec and she is struggling right now. She thinks that she might need to go back on her meds that she discontinued when she was . NOV 05/02/21 documented in this encounter Plan of Treatment Not on file documented as of this encounter Visit Diagnoses Not on filedocumented in this encounter Additional Health Concerns Assessment Noted Time PHQ-9 Depression Total Score: 18 019 1:00 PM CDT documented as of this encounter Care Teams Bilingual Instructor Relationship Specialty Start Date End Date Elba Velazquez MD [address] [facility] [address] [place] [address] PCP - General Internal Medicine 05/08/17 01/26/23 Kiel Zelaya MD [address] [place] [address] Consulting Physician Orthopaedic Sports Medicine 09/08/16 Torey Saleh [facility] [address] [facility] [address] [place] [address] Behavioral Therapist Licensed Clinical Professional Counselor 03/25/18 documented as of this encounter
--- OUTSIDE RECORDS SUMMARY | 2024-11-20 16:54 | XMS_ITS | Encounter Summary ---
Author Organization [facility] Address [address] [place] [address] Phone Care Team Providers Care Records Management Engineer Name Role Phone Below, Kiel Reed MD Unavailable [phone] Elba Velazquez MD Primary Care Provider [phone] Torey Saleh [facility] Unavailable Unavailable Reason for Visit * Reason Onset Date Comments Medication Refill 02/07/2020 Clonazepam Encounter Details Date Type Department Care Team (Late st Contact Info) Description 02/07/2020 Refill [facility] [address] [place], [place] [address] Jose Nichols MD [address] [place], [place] [id number] Medication Refill (Clonazepam) Social History Tobacco Use [...] on file 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 CORI: 06/21/19 NOV: 02/29/2020 LABS: 01/30/20 Last Ordered: 01/09/20 #90 Medication pended and routed for review. * Telephone Encounter - Aysha Mancini RN - 02/07/2020 9:18 AM CDT ----- Message from Penelope Chavarria sent at 02/06/2020 3:52 PM CDT ----- Regarding: refill Loni [phone] Dr. Nichols Patient needs a refill on Klonopin. [facility] [address] [phone] [place]. NOV 02.29.20 documented in this encounter Plan of Treatment Not on file documented as of this encounter Visit Diagnoses Diagnosis Anxiety Anxiety state, unspecified documented in this encounter Additional Health Concerns Assessment Noted Time PHQ-9 Depression Total Score: 18 019 1:00 PM CDT documented as of this encounter Care Teams Records Management Engineer Relationship Specialty Start Date End Date Elba Velazquez MD [address] [facility] [address] [place] [address] PCP - General Internal Medicine 05/08/17 01/26/23 Kiel Zelaya MD [address] [place], [place] [address] Consulting Physician Orthopaedic Sports Medicine 09/08/16 Torey Saleh, [facility] [address] [facility] [address] [place] [address] Behavioral Therapist Licensed Clinical Professional Counselor 03/25/18 documented as of this encounter
--- OUTSIDE RECORDS SUMMARY | 2024-11-20 16:54 | XMS_ITS | Encounter Summary ---
Author Organization [facility] Address [address] [place] [address] Phone Care Team Providers Care Process Assistant Name Role Phone Below, Kiel Reed MD Unavailable [phone] Elba Velazquez MD Primary Care Provider [phone] Torey Saleh [facility] Unavailable Unavailable Reason for Visit * Reason Onset Date Comments Medication Management 07/30/2021 restarting medications Encounter Details Date Type Department Care Team (Late st Contact Info) Description 07/30/2021 Telephone [facility] [address] [place], [place] [id number] Jose Nichols MD [address] [place] [address] Medication Management (restarting medications) Social History Tobacco Use Types Packs/Day Years [...] on file 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 Abilify prescription sent to [facility] pharmacy.Cancelled at [facility] in [place], [place]. Re-sent to [facility] in [place] based on written orders in this encounter. * Telephone Encounter - Roberta Beard RN - 07/30/2021 3:32 PM CDT Left message for patient to return call to the office. * Telephone Encounter - Jose Nichols MD - 07/30/2021 2:23 PM CDT Patient to start Abilify 10 mg nightly, and would start Adderall and Klonopin when I see patient on08/02/2021. * Telephone Encounter - Roberta Beard RN - 07/30/2021 12:11 PM CDT S. Patient would like to restart medications. B. CORI 04/26/2021 NOV 08/02/2021 A. Patient reports that she would like to restart clonazepam, adderall, and abilify now that she isno longer . Reports that she has been having a lot of anxiety. Lots of ups and downs and mini panic attacks Having a hard time concentrating - procrastinating. So much to do all the time and she cannot focus. Finishing her degree and starting a new job so really needs to be able to focus. Also would like to restart her abilify. No thoughts to harm her self or others. Reports that originally when she was on abilify, clonazepam, and Adderall before getting she was in the best mental place that she has ever been in and would like to resume the medications. R. Routed to provider for recommendation. * Telephone Encounter - Roberta Beard RN - 07/30/2021 12:05 PM CDT ----- Message from Peggy Velez sent at 07/30/2021 12:02 PM CDT ----- From: Rich Hussein Sent: 07/30/2021 ?? 8:14 AM CDT To: [facility] Bench Worker Apprentice Pool Loni [phone] (home) Simone Wants to talk about getting back on her meds as she is no longer breast feeding SEP - 08/02/21 documented in this encounter Plan of Treatment Not on file documented as of this encounter Visit Diagnoses Not on filedocumented in this encounter Additional Health Concerns Assessment Noted Time PHQ-9 Depression Total Score: 18 019 1:00 PM CDT documented as of this encounter Care Teams Process Assistant Relationship Specialty Start Date End Date Elba Velazquez MD [address] [facility] [address] [place], [place] [id number] PCP - General Internal Medicine 05/08/17 01/26/23 Kiel Zelaya MD [address] [place], [place] [id number] Consulting Physician Orthopaedic Sports Medicine 09/08/16 Torey Saleh [facility] [address] [facility] [address] [place] [address] Behavioral Therapist Licensed Clinical Professional Counselor 03/25/18 documented as of this encounter
--- OUTSIDE RECORDS SUMMARY | 2024-11-20 16:54 | XMS_ITS | Encounter Summary ---
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
--- OUTSIDE RECORDS SUMMARY | 2024-11-20 16:54 | XMS_ITS | Encounter Summary ---
Author Organization [facility] Address [address] [place] [address] Phone Care Team Providers Care Dental Technician Metal Name Role Phone Below, Kiel Reed MD Unavailable [phone] Elba Velazquez MD Primary Care Provider [phone] Torey Saleh [facility] Unavailable Unavailable Jose Nichols MD Unavailable [phone] Reason for Visit * Reason Comments Follow-up Bipolar disorder, an d attention deficit disorder Encounter Details Date Type Department Care Team (Latest Contact Info) Description 08/27/2021 4:15 PM CDT Telemedicine [facility] [address] [place], [place] [address] Jose Nichols MD [address] [place] [address] Bipolar disorder in remission (HCC) (Primary Dx); [...] on file 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 No / Unsure 08/27/2021 4:06 PM CDT documented as of this encounter Progress Notes * Jose Nichols MD - 08/27/2021 4:15 PM CDT Patient was assessed via online video. Patient verbally consented for this service to be performed and billed. PSYCHIATRIC PROGRESS NOTE Date of Service: 08/27/2021 Chief Complaint: Chief Complaint Patient presents with ??? Follow-up Bipolar disorder, and attention deficit disorder Interval History: Patient was assessed via online video. Patient reported doing better. Patient reported that medications are helping, but she continues to have problems with her attention. Patient would like to try to increase the dose of Adderall. Patient reported having some anxiety but she has been able to cope with that.. Patient has been compliant with medications. Intention [...] F90.2 amphetamine-dextroamphetamine (ADDERALL) 20 MG Tablet amphetamine-dextroamphetamine (ADDERALL) 20 MG Tablet amphetamine-dextroamphetamine (ADDERALL) 20 MG Tablet 3. Generalized anxiety disorder F41.1 clonazePAM (KlonoPIN) 0.5 MG Tablet ?? Assessment: Patient has ongoing symptoms. ?? Recommendations: Increase Adderall to 20 mg twice daily. Continue other medications. ?? Supportive therapy provided. ?? Risks, benefits, and side effects of medications discussed. Discussed about alternatives and therisks of not receiving treatment. Patient verbalized understanding. ?? Emergency procedures discussed. Current Outpatient Medications: ??? amphetamine-dextroamphetamine (ADDERALL) 20 MG Tablet, Take 1 Tablet by mouth 2 times daily for30 days. Cancel previous prescription of Adderall, Disp: 60 Tablet, Rfl: 0 ??? [START ON 09/26/2021] amphetamine-dextroamphetamine (ADDERALL) 20 MG Tablet, Take 1 Tablet by mouth 2 times daily for 30 days., Disp: 60 Tablet, Rfl: 0 ??? [START ON 10/26/2021] amphetamine-dextroamphetamine (ADDERALL) 20 MG Tablet, Take 1 Tablet by mouth 2 times daily., Disp: 60 Tablet, Rfl: 0 ??? [START ON 09/06/2021] clonazePAM (KlonoPIN) 0.5 MG Tablet, Take 1 Tablet by mouth 3 times dailyas needed for Anxiety. Cancel previous prescription of clonazepam, Disp: 90 Tablet, Rfl: 0 ??? ziprasidone [...] 0.4 (L) 04/25/2019 BY: Jose Nichols MD 09/02/2021 3:22 PM CDT documented in this encounter Plan [...] documented as of this encounter Care Teams Dental Technician Metal Relationship Specialty Start Date End Date Elba Velazquez MD [address] [place], [place] [address] PCP - General Internal Medicine 05/08/17 01/26/23 Kiel Zelaya MD [address] [facility] [address] Consulting Physician Orthopaedic Sports Medicine 09/08/16 Torey Saleh [facility] [address] [place] [address] Behavioral Therapist Licensed Clinical Professional Counselor 03/25/18 Jose Nichols MD [address] [facility] [place] [address] Consulting Physician Psychiatry 08/23/21 04/16/22 documented as of this encounter
--- OUTSIDE RECORDS SUMMARY | 2024-11-20 16:54 | XMS_ITS | Encounter Summary ---
Author Organization [facility] Address [address] [place] [address] Phone Care Team Providers Care Banquet Prep Cook Name Role Phone Below, Kiel Reed MD Unavailable [phone] Elba Velazquez MD Primary Care Provider [phone] Torey Saleh [facility] Unavailable Unavailable Reason for Visit * Reason Comments Bipolar Disorder Anxiety Encounter Details Date Type Department Care Team (Latest Contact Info) Description 04/26/2021 2:15 PM CDT Telemedicine [facility] [address] [place], [place] [phone] Jose Nichols MD [address] [place], [place] [id number] Bipolar disorder in remission (HCC) (Primary Dx); Generalized anxiety disorder; Attention deficit hyperactivity disorder (ADHD), combined type Social History Tobacco Use Types Packs/Day Years [...] file 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 No / Unsure 04/26/2021 2:13 PM CDT documented as of this encounter Progress Notes * Jose Nichols MD - 04/26/2021 2:15 PM CDT Patient was assessed via online video. Patient verbally consented for this service to be performed and billed. PSYCHIATRIC PROGRESS NOTE Date of Service: 04/26/2021 Chief Complaint: Chief Complaint Patient presents with ??? Bipolar Disorder ??? Anxiety Interval History: Patient seen. Patient reported doing better. Patient call the office on 04/16/2021 and at that time she reported significant problems with anxiety. I recommended to start Abilify at that time. Patientreported that she decided to continue with breast feeding, so she did not start her Abilify yet. Patient reported that she started using a breast pump to store milk which helped significantly to alleviate anxiety. Patient reported that she has been managing her mood swings. Patient will not start any psychiatric medications now as long as she is breast feeding Patient has not been taking any psychiatric medications. Intention to harm self or others: no Side effects: no Medical issues: No acute medical issues.. Mental Status Exam: Appearance: Dressed appropriately. Good eye contact. Orientation: AAOx4 Attitude: Cooperative Psychomotor: Normal Psychomotor Level, No abnormal movements Speech: Normal rate and rhythm Thought Processes: Goal directed Affect: Appropriate Mood: Patient reported anxious mood but she has been coping with her anxiety Thought Content: No suicidal ideation, No homicidal ideation, No delusions elicited Perception: No hallucination Insight: Adequate Judgment: Adequate Attention: Adequate Memory: Adequate Language: Intact Assessment and Plan: ??? Diagnoses: ICD-10-CM 1. Bipolar disorder in remission (HCC) F31.70 2. Generalized anxiety disorder F41.1 3. Attention deficit hyperactivity disorder (ADHD), combined type F90.2 ?? Assessment: Patient seems to be stable. Patient has ongoing symptoms. ?? Recommendations: Patient reported that in the next 2 months she is going to stop breast feeding,and she would start Abilify at that time. Patient has prescription for Abilify waiting in the pharmacy. I instructed patient to call this office when she decides to start Abilify. ?? Supportive therapy provided. ?? Risks, benefits, and side effects of medications discussed. Discussed about alternatives and therisks of not receiving treatment. Patient verbalized understanding. ?? Emergency procedures discussed. Current Outpatient Medications: ??? ARIPiprazole (ABILIFY) 10 MG Tablet, Take 1 Tablet by mouth daily. (Patient not taking: Reported on 04/26/2021), Disp: 30 Tablet, Rfl: 1 Labs: Lab Results Component Value Date WBC [...] 0.4 (L) 04/25/2019 BY: Jose Nichols MD 04/26/2021 3:52 PM CDT documented in this encounter Plan of Treatment Not on file documented as of this encounter Visit Diagnoses Diagnosis Bipolar disorder in remission (HCC)- Primary Bipolar disorder, unspecified Generalized anxiety disorder Attention deficit hyperactivity disorder (ADHD), combined type documented in this encounter Additional Health Concerns Assessment Noted Time PHQ-9 Depression Total Score: 18 019 1:00 PM CDT documented as of this encounter Care Teams Banquet Prep Cook Relationship Specialty Start Date End Date Elba Velazquez MD [address] [place] [address] PCP - General Internal Medicine 05/08/17 01/26/23 BelowKiel MD [address] [facility] [address] Consulting Physician Orthopaedic Sports Medicine 09/08/16 Torey Saleh [facility] [address] [place] [address] Behavioral Therapist Licensed Clinical Professional Counselor 03/25/18 documented as of this encounter
--- OUTSIDE RECORDS SUMMARY | 2024-11-20 16:54 | XMS_ITS | Encounter Summary ---
Author Organization [facility] Address [address] [place] [address] Phone Care Team Providers Care Worship Director Name Role Phone Below, Kiel Reed MD Unavailable [phone] Elba Velazquez MD Primary Care Provider [phone] Torey Saleh [facility] Unavailable Unavailable Encounter Details Date Type Department Care Team (Late st Contact Info) Description 03/15/2021 Documentation Only [facility] - Internal Medicine - [facility] [address] [place] [address] Elba Velazquez MD [address] 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 No / Unsure 03/05/2021 2:49 PM CDT documented as of this encounter Progress Notes * Betsy Carreno - 03/15/2021 10:56 AM CDT Attempted to call and schedule patient for overdue annual exam. * Betsy Carreno - 03/15/2021 10:56 AM CDT Attempted to call and schedule patient for overdue annual exam. documented in this encounter Plan of Treatment Not on file documented as of this encounter Visit Diagnoses Not on filedocumented in this encounter Additional Health Concerns Assessment Noted Time PHQ-9 Depression Total Score: 18 019 1:00 PM CDT documented as of this encounter Care Teams Worship Director Relationship Specialty Start Date End Date Elba Velazquez MD [address] [facility] [address] [place] [address] PCP - General Internal Medicine 05/08/17 01/26/23 Kiel Zelaya MD [address] [place] [address] Consulting Physician Orthopaedic Sports Medicine 09/08/16 Torey Saleh [facility] [address] [facility] [address] [place] [address] Behavioral Therapist Licensed Clinical Professional Counselor 03/25/18 documented as of this encounter
--- OUTSIDE RECORDS SUMMARY | 2024-11-20 16:54 | XMS_ITS | Encounter Summary ---
Author Organization [facility] Address [address] [place] [address] Phone Care Team Providers Care Bodywork Therapist Name Role Phone Below, Kiel Reed MD Unavailable [phone] Elba Velazquez MD Primary Care Provider [phone] Torey Saleh [facility] Unavailable Unavailable Reason for Visit * Reason Onset Date Comments Medication Refill 05/11/2020 Encounter Details Date Type Department Care Team (Late st Contact Info) Description 05/11/2020 Refill 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 No / Unsure 04/17/2020 1:45 PM CDT documented as of this encounter Miscellaneous Notes * Telephone Encounter - Nell Lay RN - 05/11/2020 10:50 AM CDT Prescriptions processed yesterday were submitted to the [facility] in [facility]- Rx are to be sent to [facility] in [place], [place]. Rx cancelled at [facility] and repended for signature. documented in this encounter Plan of Treatment Not on file documented as of this encounter Visit Diagnoses Diagnosis Attention deficit hyperactivity disorder (ADHD), combined type documented in this encounter Additional Health Concerns Assessment Noted Time PHQ-9 Depression Total Score: 18 019 1:00 PM CDT documented as of this encounter Care Teams Bodywork Therapist Relationship Specialty Start Date End Date Elba Velazquez MD [address] [facility] [address] [place] [address] PCP - General Internal Medicine 05/08/17 01/26/23 Kiel Zelaya MD [address] [place] [address] Consulting Physician Orthopaedic Sports Medicine 09/08/16 Torey Saleh [facility] [address] [facility] [address] [place] [address] Behavioral Therapist Licensed Clinical Professional Counselor 03/25/18 documented as of this encounter
--- OUTSIDE RECORDS SUMMARY | 2024-11-20 16:54 | XMS_ITS | Encounter Summary ---
Author Organization [facility] Address [address] [place] [address] Phone Care Team Providers Care Welfare Case Worker Name Role Phone Below, Kiel Reed MD Unavailable [phone] Elba Velazquez MD Primary Care Provider [phone] Torey Saleh [facility] Unavailable Unavailable Reason for Visit * Reason Comments Follow-up bipolar 1 disorder Encounter Details Date Type Department Care Team (Latest Contact Info) Description 03/05/2020 2:15 PM CDT Telemedicine [facility] [address] [place], [place] [address] Jose Nichols MD [address] [place], [place] [id number] Bipolar I disorder, most recent episode hypomanic (HCC) (Primary Dx); Generalized anxiety disorder; Attention [...] file 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 No barriers to medication compliance identified. Patient states understanding of current medications. * Jose Nichols MD - 03/05/2020 2:15 PM CDT Patient was assessed via online video for a duration of 20 minutes. Patient verbally consented for this service to be performed and billed. PSYCHIATRIC PROGRESS NOTE Date of Service: 03/05/2020 Chief Complaint: Chief Complaint Patient presents with ??? Follow-up bipolar 1 disorder Interval History: Patient was assessed via online video. Patient reported ongoing symptoms. Patient denied severe manic or depressive episodes, but she reported mild highs and lows. Patient reported that she has been struggling with anxiety. Current psychiatric symptoms: [x]- depressed mood [x]- No significant problems with motivation or energy. [x]- Patient denied having morbid thoughts about [x]- Patient denied suicidal ideation. [x]- patient reported occasional hypomanic symptoms [x]- No psychotic symptoms. [x]- generalized anxiety, Irritability [x]- No significant OCD symptoms [x]- difficulty going to sleep, intermittent sleep [x]- normal appetite [x]- No significant PTSD symptoms [x]- No problems with aggressive behavior [x]- medications are helping with attention ??? Patient reported that medications are helping but she continues to have significant issues. Compliance with medications: Patient stopped taking lithium and Depakote. Patient reported that shestopped lithium because she was having side effects, and she stopped Depakote because she had elevated liver enzyme. Most recent CMP which was done in January 2020 was unremarkable. Patient also reported that she does not like to continue with Seroquel because it is not helping her to sleep and she still having some mood swings. Patient has been taking Seroquel 100 mg nightly only Intention to harm self or others: no Side effects: no Medical issues: Patient reported having spells when she has no feeling in her fingers or her feet. Patient also reported having spells when there were some visual changes and her heart rate increased. PFSH: Social History Substance and Sexual Activity [...] struction, and URI (upper respiratory infection). She also has no past medical history of Anesthesia complication, Difficult intubation, Malignant hyperthermia, PONV (postoperative nausea and vomiting), or Spinal headache. Review of Systems: Constitutional: No problems Musculoskeletal: No problems Neurological: Patient reported occasional numbness in her feet and hands Mental Status Exam: Appearance: Good eye contact. Orientation: AAOx4 Attitude: Cooperative Psychomotor: Normal Psychomotor Level, No abnormal movements Speech: Normal rate and rhythm Thought Processes: Goal directed Affect: Appropriate Mood: Anxious Thought Content: No suicidal ideation, No homicidal ideation, No delusions Perception: No hallucination Insight: Fair Judgment: Fair Attention: Seems to be intact Memory: Seems to be intact Language: Intact Assessment and Plan: ICD-10-CM 1. Bipolar I disorder, most recent episode hypomanic (HCC) F31.0 2. Generalized anxiety disorder F41.1 3. Attention deficit hyperactivity disorder (ADHD), combined type F90.2 amphetamine-dextroamphetamine (ADDERALL) 30 MG Tablet amphetamine-dextroamphetamine (ADDERALL) 30 MG Tablet ?? Condition: Ongoing symptoms. ?? Recommendations: Decrease Seroquel to 50 mg nightly for 1 week then stop. Start Abilify 10 mg nightly. Start trazodone 50 mg nightly. Continue other medications. ?? Supportive therapy provided. ?? Risks, benefits, and side effects of medications discussed. Discussed about alternatives and therisks of not receiving treatment. Patient verbalized understanding. ?? Emergency procedures discussed. Current Outpatient Medications: ??? [START ON 04/12/2020] amphetamine-dextroamphetamine (ADDERALL) 30 MG Tablet, Take 1 Tab by mouth2 times daily., Disp: 60 Tab, Rfl: 0 ??? [START ON 03/13/2020] amphetamine-dextroamphetamine (ADDERALL) 30 MG Tablet, Take 1 Tab by mouth2 times daily., Disp: 60 Tab, Rfl: 0 ??? amphetamine-dextroamphetamine (ADDERALL) 30 MG Tablet, Take 1 Tab by mouth 2 times daily., Disp: 28 Tab, Rfl: 0 ??? ARIPiprazole (ABILIFY) 10 MG Tablet, Take 1 Tab by mouth nightly., Disp: 30 Tab, Rfl: 4 ??? [START ON 03/08/2020] clonazePAM (KLONOPIN) 0.5 MG Tablet, Take 1 Tab by mouth 3 times daily. Start date 03-08-20, Disp: 90 Tab, Rfl: 0 ??? QUEtiapine Fumarate (SEROQUEL) 50 MG Tablet, 1 tablet nightly for 1 week then stop, Disp: , Rfl: ??? traZODone (DESYREL) 50 MG Tablet, Take 1 Tab by mouth nightly., Disp: 30 Tab, Rfl: 4 Labs: Lab Results Component Value Date WBC [...] 0.4 (L) 04/25/2019 BY: Jose Nichols MD 03/05/2020 3:53 PM documented in this encounter Plan of Treatment Not on file documented as of this encounter Visit Diagnoses Diagnosis Bipolar I disorder, most recent episode hypomanic (HCC)- Primary Bipolar I disorder, most recent episode (or current) manic, unspecified Generalized anxiety disorder Attention deficit hyperactivity disorder (ADHD), combined type documented in this encounter Additional Health Concerns Assessment Noted Time PHQ-9 Depression Total Score: 18 019 1:00 PM CDT documented as of this encounter Care Teams Welfare Case Worker Relationship Specialty Start Date End Date Elba Velazquez MD [address] [place] [address] PCP - General Internal Medicine 05/08/17 01/26/23 Kiel Zelaya MD [address] [place] [address] Consulting Physician Orthopaedic Sports Medicine 09/08/16 [facility] Saleh [facility] [address] [place] [address] Behavioral Therapist Licensed Clinical Professional Counselor 03/25/18 documented as of this encounter
--- OUTSIDE RECORDS SUMMARY | 2024-11-20 16:54 | XMS_ITS | Encounter Summary ---
Author Organization [facility] Address [address] [place] [address] Phone Care Team Providers Care Interpersonal Communications Professor Name Role Phone Below, Kiel Reed MD Unavailable [phone] Elba Velazquez MD Primary Care Provider [phone] Torey Saleh [facility] Unavailable Unavailable Reason for Visit * Reason Onset Date Comments Medication Management 08/05/2021 abilify Encounter Details Date Type Department Care Team (Late st Contact Info) Description 08/05/2021 Telephone [facility] Psychiatry & Psychology [address], [place] [id number] Jose Nichols MD [address] [place] [address] Medication Management (abilify) Social History Tobacco Use Types Packs/Day Years [...] on file 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 Did schedule patient for 415 PM video visit today. * Telephone Encounter - Jose Nichols MD - 08/05/2021 3:37 PM CDT If the nausea and dizziness do not improve in few days, she needs to follow with her primary care physician. Patient to stop Abilify for now. Will not start any medications until dizziness and nausea resolved * Telephone Encounter - Pita Baires RN - 08/05/2021 3:14 PM CDT S: Patient having side effects. B: 08/26/2021 A: Patient states that she started having very bad nausea and dizziness after restarting her Abilify. She did state she would take it with food and still have nausea on and off all day. She did report to RN that she last took her Abilify on Thursday and is still have these side effects. Denies suicidal and homicidal ideations and audio and visual hallucinations. States her mood has been good. R: Routed to for review. Please advise. * Telephone Encounter - Pita Baires RN - 08/05/2021 3:03 PM CDT Left message for patient to return call to the office. * Telephone Encounter - Pita Baires RN - 08/05/2021 3:01 PM CDT ----- Message from Yoli Mullins sent at 08/05/2021 2:52 PM CDT ----- Regarding: Side Effects Loni [phone] (home) Dr. Nichols Would like a nurse to call. She recently started medication back up since having baby and has been having dizziness/nausea. NOV: 08/26/21 documented in this encounter Plan of Treatment Not on file documented as of this encounter Visit Diagnoses Not on filedocumented in this encounter Additional Health Concerns Assessment Noted Time PHQ-9 Depression Total Score: 18 019 1:00 PM CDT documented as of this encounter Care Teams Interpersonal Communications Professor Relationship Specialty Start Date End Date Elba Velazquez MD [address] [facility] [address] [place] [address] PCP - General Internal Medicine 05/08/17 01/26/23 Kiel Zelaya MD [address] [facility] [place] [address] Consulting Physician Orthopaedic Sports Medicine 09/08/16 Torey Saleh [facility] [address] [place] [address] Behavioral Therapist Licensed Clinical Professional Counselor 03/25/18 documented as of this encounter
--- OUTSIDE RECORDS SUMMARY | 2024-11-20 16:54 | XMS_ITS | Encounter Summary ---
Author Organization [facility] Address [address] [place] [address] Phone Care Team Providers Care Heel Layer Name Role Phone Below, Kiel Reed MD Unavailable [phone] Elba Velazquez MD Primary Care Provider [phone] Torey Saleh [facility] Unavailable Unavailable Reason for Visit * Reason Comments Procedure SSEP * Other (Routine) - Closed Specialty Diagnoses / Procedures Referred By Contac t Referred To Contact Neurology Diagnoses Numbness of fingers of both hands Procedures SOMATOSENSORY TESTING Avis Mac DO Phone: tel: fax: Referral ID Status Reason Start Date Expiration Date Visits Re quested Visits Authorized [id number] Closed 01/30/2020 1 1 Encounter Details Date Type Department Care Team (Latest Contact Info) Description 04/17/2020 2:00 PM CDT [facility] [place] [facility] [address] [place] [address] Numbness of fingers of both hands Discharge Disposition: Discharged to home or Selfcare [...] on file 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 No / Unsure 04/17/2020 1:45 PM CDT documented as of this encounter Progress Notes * Park Lopez, PUMP OILER - 04/17/2020 2:00 PM CDT Erika presents for in office SSEP UPPER/LOWER per order of Dr. Mac dated 01/30/2020. Patient tolerated procedure well without incident. Tracing stored on [employer] information technology. documented in this encounter Procedure Notes * Yunior Almeida MD - 04/17/2020 2:00 PM CDTAssociated Order(s): SOMATOSENSORY TESTING EVOKED POTENTIAL REPORT Name: Erika Childs Account/CSN # :[id number] : 1990 Age: 29 y.o. EEG # : [id number] Study Date: No admission date for patient encounter. Referring Physician: Avis Mac DO REASON FOR STUDY: Procedure: 1). Somatosensory evoked potentials to the median nerve were recorded. Results: Right Median Nerve Left Median Nerve Normal Range EP 10.5msec 10.8msec < 12 msec N13 12.1 msec 12.7 msec < 16.3 N20 20.6 msec 20.8 msec < 22.1 msec EP-N13 1.6 msec 1.9 msec < 5.2 EP-N20 10.1 msec 10 msec < 10.9 msec Impression: These median nerve somatosensory evoked potentials are normal bilaterally. By this study there is no evidence of impaired conduction in the sensory pathways of the median nerve on either side. Procedure: 2). Somatosensory evoked potentials to the posterior tibial nerve were recorded. Patient's Height: Results: R Posterior Tibial Nerve L Posterior Tibial Nerve Normal Range Lp 21.8 ms 23.7 ms < 25.3ms N/P37 38.5 ms 39.3 ms <43.5 ms N/P37-Lp 16.7 ms 15.6 ms < 20.6 ms IMPRESSION: The posterior tibial nerve somatosensory evoked potentials are normal bilaterally. By this study there is no evidence of impaired conduction in the sensory pathways of the posterior tibial nerve on either side. documented in this encounter Plan of Treatment Not on file documented as of this encounter Procedures Procedure Name Priority Date/Time Associated Diagnosis Comments SOMATOSENSORY TESTING Routine 04/17/2020 2:00 PM CDT Numbness of fingers of both hands documented in this encounter Results * SOMATOSENSORY TESTING (04/17/2020 2:00 PM CDT) Narrative Yunior Almeida MD - 04/17/2020 2:00 PM CDT Yunior Almeida MD ? 04/17/2020 ??4:25 PM ?? EVOKED POTENTIAL REPORT Name: Erika Childs ?Account/CSN # :[id number] : ?? 1990 ? Age: 29 y.o. ? EEG ??# ??: [id number] ? Study Date: No admission date for patient encounter. Referring Physician: Avis Mac DO REASON FOR STUDY: ?? Procedure: 1). Somatosensory evoked potentials to the median nerve were recorded. ? Results: ??Right Median Nerve ?Left Median Nerve ? Normal Range EP ??10.5msec ?10.8msec ?? < 12 msec N13 ??12.1 msec ? 12.7 msec ?? < 16.3 N20 ??20.6 msec ? 20.8 msec ?? < 22.1 msec EP-N13 1.6 msec ? 1.9 msec ?? < 5.2 EP-N20 10.1 msec ? 10 msec ?? < 10.9 msec Impression: These median nerve somatosensory evoked potentials are normal bilaterally. ??By this study there is no evidence of impaired conduction in the sensory pathways of the median nerve on either side. Procedure: 2). Somatosensory evoked potentials to the posterior tibial nerve were recorded. ?? Patient's Height: ? Results: R Posterior Tibial Nerve L Posterior Tibial Nerve ? Normal ?? Range Lp ??21.8 ms ??23.7 ms ?< 25.3ms N/P37 ??38.5 ms ??39.3 ms ?<43.5 ms N/P37-Lp 16.7 ms ??15.6 ms ?< 20.6 ms IMPRESSION: ??The posterior tibial nerve somatosensory evoked potentials are normal bilaterally. ??By this study there is no evidence of impaired conduction in the sensory pathways of the posterior tibial nerve on either side. us Avis Mac DO NEUROLOGY ORDERABLES Final Re sult documented in this encounter Visit Diagnoses Diagnosis Numbness of fingers of both hands Disturbance of skin sensation documented in this encounter Additional Health Concerns Assessment Noted Time PHQ-9 Depression Total Score: 18 019 1:00 PM CDT documented as of this encounter Care Teams Heel Layer Relationship Specialty Start Date End Date Elba Velazquez MD [address] [facility] [address] [place] [address] PCP - General Internal Medicine 05/08/17 01/26/23 Kiel Zelaya MD [address] [place], [place] [id number] Consulting Physician Orthopaedic Sports Medicine 09/08/16 Torey Saleh [facility] [address] [facility] [address] [place] [address] Behavioral Therapist Licensed Clinical Professional Counselor 03/25/18 documented as of this encounter
--- OUTSIDE RECORDS SUMMARY | 2024-11-20 16:54 | XMS_ITS | Encounter Summary ---
Author Organization [facility] Address [address] [place] [address] Phone Care Team Providers Care Jig Inspector Name Role Phone Below, Kiel Reed MD Unavailable [phone] Elba Velazquez MD Primary Care Provider [phone] Torey Saleh [facility] Unavailable Unavailable Reason for Visit * Reason Onset Date Comments Medication Management 06/27/2020 Encounter Details Date Type Department Care Team (Late st Contact Info) Description 06/27/2020 Telephone [facility] Psychiatry & Psychology [address] [place], [place] [id number] Jose Nichols MD [address] [place], [place] [id number] Medication Management () Social History Tobacco Use Types Packs/Day Years [...] on file 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 07/05/20 * Telephone Encounter - Aysha Mancini RN - 06/27/2020 12:08 PM CDT ----- Message from Penelope Chavarria sent at 06/27/2020 11:34 AM CDT ----- Regarding: medication managejayjaygianni Ivey [phone] Patient Is and OB helped her off all medications. She will not be taking any until after . 07.05.20 documented in this encounter Plan of Treatment Not on file documented as of this encounter Visit Diagnoses Not on filedocumented in this encounter Additional Health Concerns Assessment Noted Time PHQ-9 Depression Total Score: 18 02/24/2 019 1:00 PM CDT documented as of this encounter Care Teams Jig Inspector Relationship Specialty Start Date End Date Elba Velazquez MD [address] [place] [address] PCP - General Internal Medicine 05/08/17 01/26/23 Kiel Zelaya MD [address] [place] [address] Consulting Physician Orthopaedic Sports Medicine 09/08/16 Torey Saleh, [facility] [address] [facility] [address] [place] [address] Behavioral Therapist Licensed Clinical Professional Counselor 03/25/18 documented as of this encounter
--- OUTSIDE RECORDS SUMMARY | 2024-11-20 16:54 | XMS_ITS | Encounter Summary ---
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 Gender Identity Not on file Sexual Orientation [...] documented as of this encounter Care Teams Deburr Operator Relationship Specialty Start Date End Date Elba Velazquez MD [address] [place] [address] PCP - General Internal Medicine 05/08/17 01/26/23 Kiel Zelaya MD [address] [place] [place] [address] Consulting Physician Orthopaedic Sports Medicine 09/08/16 Torey Saleh [facility] [address] [place] [address] Behavioral Therapist Licensed Clinical Professional Counselor 03/25/18 Jose Nichols MD [address] [facility] [place] [place] [address] Consulting Physician Psychiatry 08/23/21 04/16/22 documented as of this encounter
--- OUTSIDE RECORDS SUMMARY | 2024-11-20 16:54 | XMS_ITS | Encounter Summary ---
Author Organization [facility] Address [address] [place] [address] Phone Care Team Providers Care President And Chief Commercial Officer Name Role Phone Below, Kiel Reed MD Unavailable [phone] Elba Velazquez MD Primary Care Provider [phone] Torey Saleh [facility] Unavailable Unavailable Jose Nichols MD Unavailable [phone] Reason for Visit * Reason Onset Date Comments Medication Management 08/23/2021 Adderall, Clonazepam Encounter Details Date Type Department Care Team (Late Contact Info) Description 08/23/2021 Telephone [facility] [address] [place], [place] [address] Jose Nichols MD [address] [place] [address] Medication Management (Adderall, Clonazepam) Social History Tobacco Use Types [...] on file 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 No / Unsure 08/27/2021 4:06 PM CDT documented as of this encounter Miscellaneous Notes * Telephone Encounter - Pita Baires RN - 08/27/2021 4:32 PM CDT Patient being seen via video visit with MD. * Telephone Encounter - Jose Nichols MD - 08/27/2021 3:26 PM CDT I will assess patient today during the appointment * Telephone Encounter - Pita Baires RN - 08/27/2021 12:04 PM CDT Patient would like to take Adderall 20 mg twice daily. Patient states she has been taking her clonazepam twice in the evening and was hoping to get back to her original dose of 3 times daily. Please advise. * Telephone Encounter - Jose Nichols MD - 08/26/2021 5:03 PM CDT Does patient prefer to increase Adderall to 10 mg 3 times a day or to 20 mg twice daily. Since the anxiety is mostly in the evening, patient to try to take her Klonopin twice in the evening * Telephone Encounter - Darwin Dinh RN - 08/23/2021 1:38 PM CDT S: patient requesting Adderall and clonazepam increased B: ADHD, Anxiety A: Patient reports that she takes one 10 mg Adderall upon waking at 5 am then needs to take anotherone at 9 am because the effects wear off and her focus and attention start to decrease. The patient also repots that her anxiety is high at night time and her mind races . She reports that she thinks about the next day a lot and this increases her anxiety. She just started a new job which is increasing her anxiety. Rates anxiety a 8-9 on a scale from 0-10. Sleeps well. Denies SI. R: Please advise. * Telephone Encounter - Darwin Dinh RN - 08/23/2021 1:35 PM CDT ----- Message from Yoli Mullins sent at 08/23/2021 1:10 PM CDT ----- Regarding: Update Loni [phone] (home) Dr. Nichols Patient had to reschedule appointment on Thursday, 08/26 due to orientation for new job. She would like a nurse to call to give update on medications. NOV: 10/16/21 documented in this encounter Plan of Treatment Not on file documented as of this encounter Visit Diagnoses Not on filedocumented in this encounter Additional Health Concerns Assessment Noted Time PHQ-9 Depression Total Score: 18 02/24/ 019 1:00 PM CDT documented as of this encounter Care Teams President And Chief Commercial Officer Relationship Specialty Start Date End Date Elba Velazquez MD [address] [facility] [address] [place] [address] PCP - General Internal Medicine 05/08/17 01/26/23 Kiel Zelaya MD [address] [place] [address] Consulting Physician Orthopaedic Sports Medicine 09/08/16 Torey Saleh [facility] [address] [place] [address] Behavioral Therapist Licensed Clinical Professional Counselor 03/25/18 Jose Nichols MD [address] [facility] [place] [address] Consulting Physician Psychiatry 08/23/21 04/16/22 documented as of this encounter
--- OUTSIDE RECORDS SUMMARY | 2024-11-20 16:54 | XMS_ITS | Encounter Summary ---
Author Organization [facility] Address [address] [place] [address] Phone Care Team Providers Care Shift Supervisor Melting Name Role Phone Below, Kiel Reed MD Unavailable Elba Velazquez MD Primary Care Provider [phone] Torey Sale[address] 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
--- OUTSIDE RECORDS SUMMARY | 2024-11-20 16:54 | XMS_ITS | Encounter Summary ---
Author Organization [facility] Address [address] [place] [address] Phone Care Team Providers Care Director Medicare Sales Name Role Phone Below, Kiel Reed MD Unavailable [phone] Elba Velazquez MD Primary Care Provider [phone] Torey Saleh [facility] Unavailable Unavailable Reason for Visit * Reason Onset Date Comments Medication Management 02/27/2020 Encounter Details Date Type Department Care Team (Late st Contact Info) Description 02/27/2020 [facility] [address] [place], [place] [id number] Jose Nichols MD [address] [place], [place] [id number] Medication Management Social History Tobacco Use Types [...] on file 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 Transferred to front man to schedule for the * Telephone Encounter - Aysha Mancini RN - 02/27/2020 1:06 PM CDT Left message to call the office * Telephone Encounter - Aysha Mancini RN - 02/27/2020 1:04 PM CDT ----- Message from Penelope Chavarria sent at 02/27/2020 12:07 PM CDT ----- Regarding: patient call back Loni [phone] Dr. Nichols Patient was bumped from provider and she would like a call back to discuss medications and concerns. Sep07.05.20 documented in this encounter Plan of Treatment Not on file documented as of this encounter Visit Diagnoses Not on filedocumented in this encounter Additional Health Concerns Assessment Noted Time PHQ-9 Depression Total Score: 18 019 1:00 PM CDT documented as of this encounter Care Teams Director Medicare Sales Relationship Specialty Start Date End Date Elba Velazquez MD [address] [place] [address] PCP - General Internal Medicine 05/08/17 01/26/23 Below, Kiel Reed MD [address] [place], [place] [address] Consulting Physician Orthopaedic Sports Medicine 09/08/16 Torey Saleh [facility] [address] [address] Behavioral Therapist Licensed Clinical Professional Counselor 03/25/18 documented as of this encounter
--- OUTSIDE RECORDS SUMMARY | 2024-11-20 16:54 | XMS_ITS | Encounter Summary ---
Author Organization [facility] Address [address] [place] [address] Phone Care Team Providers Care Tempering Kiln Tender Name Role Phone Below, Kiel Reed MD Unavailable [phone] Elba Velazquez MD Primary Care Provider [phone] Torey Saleh [facility] Unavailable Unavailable Reason for Visit * Reason Comments Follow-up For bipolar and anxi ety Encounter Details Date Type Department Care Team (Late st Contact Info) Description 03/05/2021 2:45 PM CDT Telemedicine [facility] [address] [place], [place] [address] Jose Nichols MD [address] [place], [place] [id number] Bipolar disorder in remission (HCC) (Primary Dx); [...] on file 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 No / Unsure 03/05/2021 2:49 PM CDT documented as of this encounter Progress Notes * Jose Nichols MD - 03/05/2021 2:45 PM CDT Patient was assessed via online video. Patient verbally consented for this service to be performed and billed. PSYCHIATRIC PROGRESS NOTE Date of Service: 03/05/2021 Chief Complaint: Chief Complaint Patient presents with ??? Follow-up For bipolar and anxiety Interval History: Patient was assessed via online video. Patient reported doing okay. Patient reported mild mood swings, but she denies significant manic or depressive symptoms. Patientreported that she continues to have problems with attention, but right now she does not want to be on medications while she is breast feeding. Patient reported that she might stop breast feeding in the future if she feels that she needs to be back on medications. Patient reported good sleep and appetite, but she reported that she might wakes up few times during the night to breast feed. Patient is not receiving any psychiatric medications. Intention to harm self or others: no Side effects: no Medical issues: No acute medical issues.. Mental Status Exam: Appearance: Good eye contact. Orientation: AAOx4 Attitude: Cooperative Psychomotor: Normal Psychomotor Level, No abnormal movements Speech: Normal rate and rhythm Thought Processes: Goal directed Affect: Normal range and Appropriate Mood: Euthymic Thought Content: No suicidal ideation, No homicidal ideation, No delusions Perception: No hallucination Insight: Adequate Judgment: Adequate Attention: Adequate Memory: Adequate Language: Intact Assessment and Plan: ??? Diagnoses: ICD-10-CM 1. Bipolar disorder in remission (HCC) F31.70 2. Generalized anxiety disorder F41.1 ?? Assessment: Patient seems to be stable. ?? Recommendations: Will not start any psychiatric medications at this time. ?? Supportive therapy provided. ?? Risks, benefits, [...] 0.4 (L) 04/25/2019 BY: Jose Nichols MD 03/05/2021 4:26 PM CDT documented in this encounter Plan of Treatment Not on file documented as of this encounter Visit Diagnoses Diagnosis Bipolar disorder in remission (HCC)- Primary Bipolar disorder, unspecified Generalized anxiety disorder documented in this encounter Additional Health Concerns Assessment Noted Time PHQ-9 Depression Total Score: 18 019 1:00 PM CDT documented as of this encounter Care Teams Tempering Kiln Tender Relationship Specialty Start Date End Date Elba Velazquez MD [address] [place], [place] [address] PCP - General Internal Medicine 05/08/17 01/26/23 BelowKiel MD [address] [place] [address] Consulting Physician Orthopaedic Sports Medicine 09/08/16 Toery Saleh [facility] [address] [place] [address] Behavioral Therapist Licensed Clinical Professional Counselor 03/25/18 documented as of this encounter
--- OUTSIDE RECORDS SUMMARY | 2024-11-20 16:54 | XMS_ITS | Encounter Summary ---
Author Organization [facility] Address [address] [place] [address] Phone Care Team Providers Care Patch Sander Name Role Phone Below, Kiel Reed MD Unavailable [phone] Elba Velazquez MD Primary Care Provider [phone] Torey Saleh [facility] Unavailable Unavailable Jose Nichols MD Unavailable [phone] Reason for Visit * Reason Onset Date Comments Medication Refill 11/12/2021 adderall, clon azepam and geodon Encounter Details Date Type Department Care Team (Late st Contact Info) Description 11/12/2021 [facility] Psychology [address] [place], [place] [phone] Jose Nichols MD [address] [place] [address] Medication Refill (adderall, clonazepam and [...] on file 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 CORI: 08/27/2021 NOV: 12/13/2021 Last Ordered: Adderall: 10/26/2021 60 tab 0 refills [place]27/2021 dispensed 10/08/2021 Clonazepam: 10/08/2021 90 tab 0 [place]ills [place] 10/08/2021 Geodon: 08/07/2021 30 cap 2 refills Medication pended and routed for review. CULTURE FARMER * Telephone Encounter - Pita Baires RN - 11/12/2021 11:03 AM AQUACULTURE FARMER ----- Message from Rich Hussein sent at 11/12/2021 10:23 AM AQUACULTURE FARMER ----- Loni [phone] (home) Simone Refill on adderall, klonopin, geodon - Changing to a new pharmacy [facility] in [place] on [place] 12/13/21 CULTURE FARMER documented in this encounter Plan of Treatment Not on file documented as of this encounter Visit Diagnoses Diagnosis Generalized anxiety disorder Attention deficit hyperactivity disorder (ADHD), combined type documented in this encounter Additional Health Concerns Assessment Noted Time PHQ-9 Depression Total Score: 18 019 1:00 PM CDT documented as of this encounter Care Teams Patch Sander Relationship Specialty Start Date End Date Elba Velazquez MD [address] [facility] [address] [place] [address] PCP - General Internal Medicine 05/08/17 01/26/23 Kiel Zelaya MD [address] [facility] [place] [address] Consulting Physician Orthopaedic Sports Medicine 09/08/16 Torey Saleh [facility] [address] [facility] [address] [place] [address] Behavioral Therapist Licensed Clinical Professional Counselor 03/25/18 Jose Nichols MD [address] [facility] [place] [address] Consulting Physician Psychiatry 08/23/21 04/16/22 documented as of this encounter
--- OUTSIDE RECORDS SUMMARY | 2024-11-20 16:55 | XMS_ITS | Encounter Summary ---
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 [facility] [address] [place] [address], * (ABNORMAL) IMMUNOFIXATION W/ ELECTROPHORESIS SERUM (01/30/2020 4:29 PM CDT) TOTAL PROTEIN 7.0 6.3 - 8.2 g/dL 02/01/2020 2:27 PM CDT [facility] % ALBUMIN 66.9(H) 55.8 - 66.7 % 02/01/2020 2:27 PM CDT [facility] ALBUMIN SERUM 4.7 2.5 - 5.4 g/dL 02/01/2020 2:27 PM CDT [facility] % ALPHA 1 GLOBULIN 3.8 2.9 - 4.9 % 02/01/2020 2:27 PM CDT [facility] ALPHA 1 0.3 0.2 - 0.4 g/dL 02/01/2020 2:27 PM CDT [facility] % ALPHA 2 GLOBULIN 9.9 7.1 - 11.8 % 02/01/2020 2:27 PM CDT [facility] ALPHA 2 0.7 0.5 - 1.0 g/dL 02/01/2020 2:27 PM CDT [facility] % BETA 6.9(L) 8.4 - 13.1 % 02/01/2020 2:27 PM CDT [facility] BETA-GLOBULIN 0.5 0.5 - 1.1 g/dL 02/01/2020 2:27 PM CDT [facility] % GAMMA GLOBULIN 12.5 11.1 - 18.8 % 02/01/2020 2:27 PM CDT [facility] GAMMA 0.9 0.7 - 1.5 g/dL 02/01/2020 2:27 PM CDT [facility] IMMUNOGLOBULIN G 990 552-1,63 1 mg/dL 02/01/2020 2:27 PM CDT [facility] IMMUNOGLOBULIN A 59(L) 65 - 421 mg/dL 02/01/2020 2:27 PM CDT [facility] IMMUNOGLOBULIN M 72 33 - 293 mg/dL 02/01/2020 2:27 PM CDT [facility] INTERPRETATION SERUM No abnormal protein band is detected by serum protein electrophoresis. Serum immunofixation electrophoresis is negative for monoclonal immunoglobulins. Reviewed by Alesha Ferguson, Ph.D./Shay Pendleton M.D. 02/01/2020 2:27 PM CDT [facility] A/G RATIO, SERUM 2.0 02/01/20 20 2:27 PM CDT [facility] Blood specimen (specimen) Venipuncture / Unknown 01/30/2020 4:29 PM CDT 01/30/2020 5:11 PM CDT us Clif Mac DO CHEMISTRY ORDERABLES Final Re sult [facility] [address] [place] [address], documented in this encounter Visit Diagnoses Diagnosis Numbness of fingers of both hands- Primary Disturbance of skin sensation Elevated liver enzymes Nonspecific elevation of levels of transaminase or lactic acid dehydrogenase (LDH) Numbness of fingers of both hands Disturbance of skin sensation documented in this encounter Additional Health Concerns Assessment Noted Time PHQ-9 Depression Total Score: 18 019 1:00 PM CDT documented as of this encounter Care Teams Player Development Executive Relationship Specialty Start Date End Date Elba Velazquez MD [address] [place] [address] PCP - General Internal Medicine 05/08/17 01/26/23 Below, Kiel Reed MD [address] [place] [address] Consulting Physician Orthopaedic Sports Medicine 09/08/16 Torey Saleh [facility] [address] [facility] [address] [place] [address] Behavioral Therapist Licensed Clinical Professional Counselor 03/25/18 documented as of this encounter
--- OUTSIDE RECORDS SUMMARY | 2024-11-20 16:55 | XMS_ITS | Encounter Summary ---
Author Organization [employer] Care Team Providers Care Deputy K 9 Name Role Phone Below, Kiel Reed MD Unavailable [phone] Elba Velazquez MD Primary Care Provider [phone] Torey Saleh [facility] Unavailable Unavailable Encounter Details Date Type Department Care Team (Latest Contact Info) Description 01/30/2020 Travel Social History Tobacco Use Types Packs/Day [...] on file Legal Sex Female 3:08 AM NICKEL OPERATOR Gender Identity Not on file Sexual Orientation Not on file documented as of this encounter Plan of Treatment Not on file documented as of this encounter Visit Diagnoses Not on filedocumented in this encounter Additional Health Concerns Assessment Noted Time PHQ-9 Depression Total Score: 18 019 1:00 PM CDT documented as of this encounter Care Teams Deputy K 9 Relationship Specialty Start Date End Date Elba Velazquez MD [address] [place] [address] PCP - General Internal Medicine 05/08/17 01/26/23 Below, Kiel Reed MD [address] [facility] [place] [address] Consulting Physician Orthopaedic Sports Medicine 09/08/16 Torey Saleh, [facility] [address] [facility] [address] [place] [address] Behavioral Therapist Licensed Clinical Professional Counselor 03/25/18 documented as of this encounter
--- OUTSIDE RECORDS SUMMARY | 2024-11-20 16:55 | XMS_ITS | Encounter Summary ---
Author Organization [facility] Address [address] [place] [address] Phone Care Team Providers Care Scout Leaser Name Role Phone Below, Kiel Reed MD Unavailable [phone] Elba Velazquez MD Primary Care Provider [phone] Torey Saleh [facility] Unavailable Unavailable Reason for Visit * Reason Onset Date Comments Medication Refill clonazepam Medication Refill 12/13/2019 Encounter Details Date Type Department Care Team (Late st Contact Info) Description 12/06/2019 Ref[place] [facility] [place] [facility]ry [facility] Psychology [address] [place] [address] oJse Nichols MD [address] [place], [place] [id number] Medication Refill (clonazepam); Medication Refill Social History Tobacco Use Types [...] on file Legal Sex Female 3:08 AM AGRICULTURAL INSPECTOR Gender Identity Not on file Sexual Orientation Not on file documented as of this encounter Miscellaneous Notes * Telephone Encounter - Annette Smith LPN - 12/06/2019 10:00 AM AGRICULTURAL INSPECTOR Refill request received from [facility] for clonazepam 0.5mg take one tablet TID PRN. CORI: 06/21/2019 NOV: 02/29/2020 Last Ordered: 10/27/19 #90 0 refill Last filled per [facility]: 10/27/19 #90 0 refill Medication pended and routed for review. CULTURAL INSPECTOR documented in this encounter Plan of Treatment Not on file documented as of this encounter Visit Diagnoses Diagnosis Anxiety Anxiety state, unspecified documented in this encounter Additional Health Concerns Assessment Noted Time PHQ-9 Depression Total Score: 18 019 1:00 PM CDT documented as of this encounter Care Teams Scout Leaser Relationship Specialty Start Date End Date Elba Velazquez MD [address] [facility] [address] [place] [address] PCP - General Internal Medicine 05/08/17 01/26/23 Kiel Zelaya MD [address] [place], [place] [id number] Consulting Physician Orthopaedic Sports Medicine 09/08/16 Torey Saleh [facility] [address] [facility] [address] [place] [address] Behavioral Therapist Licensed Clinical Professional Counselor 03/25/18 documented as of this encounter
--- OUTSIDE RECORDS SUMMARY | 2024-11-20 16:55 | XMS_ITS | Encounter Summary ---
Author Organization [facility] Address [address] [place] [address] Phone Care Team Providers Care Project Management It Specialist Name Role Phone Below, Kiel Reed MD Unavailable [phone] Elba Velazquez MD Primary Care Provider [phone] Torey Saleh [facility] Unavailable Unavailable Reason for Visit * Reason Onset Date Comments Medication Refill 01/09/2020 Clonazepam Encounter Details Date Type Department Care Team (Late st Contact Info) Description 01/09/2020 Refill [facility] [place] [address] [place], [place] [id number] Jose Nichols MD [address] [place], [place] [id number] Medication Refill (Clonazepam) Social History Tobacco Use [...] on file Legal Sex Female 3:08 AM KENNEL OPERATOR Gender Identity Not on file Sexual Orientation Not on file documented as of this encounter Miscellaneous Notes * Telephone Encounter - Aysha Mancini RN - 01/09/2020 2:13 PM CST Refill request received for Clonazepam 0.5 mg CORI: 06/21/19 NOV: 02/29/2020 Last Ordered: 12/06/19 #90 Medication pended and routed for review. EL OPERATOR * Telephone Encounter - Ayhsa Mancini RN - 01/09/2020 2:11 PM CST ----- Message from Penelope Chavarria sent at 01/09/2020 10:52 AM KENNEL OPERATOR ----- Regarding: refill Loni [phone] Dr. Nichols Patient needs a refill on Clonazepam. [facility] in [place], [place] [address].29.20 EL OPERATOR documented in this encounter Plan of Treatment Not on file documented as of this encounter Visit Diagnoses Diagnosis Anxiety Anxiety state, unspecified documented in this encounter Additional Health Concerns Assessment Noted Time PHQ-9 Depression Total Score: 18 019 1:00 PM CDT documented as of this encounter Care Teams Project Management It Specialist Relationship Specialty Start Date End Date Elba Velazquez MD [address] [facility] [address] [place] [id number] PCP - General Internal Medicine 05/08/17 01/26/23 Kiel Zelaya MD [address] [place], [place] [address] Consulting Physician Orthopaedic Sports Medicine 09/08/16 Torey Saleh [facility] [address] [place] [address] Behavioral Therapist Licensed Clinical Professional Counselor 03/25/18 documented as of this encounter
--- OUTSIDE RECORDS SUMMARY | 2024-11-20 16:55 | XMS_ITS | Encounter Summary ---
Author Organization [facility] Address [address] [place] [address] Phone Care Team Providers Care Manager Architectural Name Role Phone Below, Kiel Reed MD Unavailable [phone] Elba Velazquez MD Primary Care Provider [phone] Torey Saleh [facility] Unavailable Unavailable Reason for Visit * Reason Onset Date Comments Medication Management 01/03/2020 Encounter Details Date Type Department Care Team (Late st Contact Info) Description 01/03/2020 Telephone [facility] [place] Psych[facility]ry & Psychology [address] [place], [place] [id number] Jose Nichols MD [address] [place], [place] [id number] Medication Management Social History Tobacco Use Types [...] on file Legal Sex Female 3:08 AM CAUSTIC PURIFICATION OPERATOR Gender Identity Not on file Sexual Orientation Not on file documented as of this encounter Miscellaneous Notes * Telephone Encounter - Kathi Tsai APN, CNP - 01/03/2020 5:03 PM CAUSTIC PURIFICATION OPERATOR Signed TIC PURIFICATION OPERATOR * Telephone Encounter - Annette Smith LPN - 01/03/2020 5:02 PM CAUSTIC PURIFICATION OPERATOR Pt notified and verbalized understanding Patient states she would like the script to go to the [facility] in [place]. Script pended for provider to sign TIC PURIFICATION OPERATOR * Telephone Encounter - Annette Smith LPN - 01/03/2020 4:59 PM CAUSTIC PURIFICATION OPERATOR ----- Message from Penelope Chavarria sent at 01/03/2020 4:16 PM CAUSTIC PURIFICATION OPERATOR ----- Regarding: call back request Erika [phone] Dr. Nichols Patient is asking for a call back with a decision about medication. Sep02.29.20 TIC PURIFICATION OPERATOR * Telephone Encounter - Annette Smith LPN - 01/03/2020 4:56 PM CAUSTIC PURIFICATION OPERATOR Patient will be due for a refill on 01/16/19. [place] Fill per [place] [facility] was 12/16/19 #60 0 refill Script pended for 14 day supply Routing to provider for signature. TIC PURIFICATION OPERATOR * Telephone Encounter - Kathi Tsai APN, CNP - 01/03/2020 4:53 PM CAUSTIC PURIFICATION OPERATOR Okay for early refill of Adderall 30 mg 2 times daily please let patient know to be careful with her prescriptions as this is the only time an early refill will be given. TIC PURIFICATION OPERATOR * Telephone Encounter - Annette Smith LPN - 01/03/2020 1:35 PM CAUSTIC PURIFICATION OPERATOR Patient states that she has lost her medication at school she believes. 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 Patient states that she really needs her Adderall. Patient states she met with her PI at school who told her she needs to contact the office. Patient states she is worried that Her lack of focus could ruin her whole career in the next two weeks without the medication. Patient states she spent 4.5 hours this morning look in her house and her car for the medication and believes she either lost the medication at school or someone stole it. Patient states she is willing to pay out of pocket for the medication and would even drop down to taking once a day if she had to. Patient states her Adderall really helps her stay focused on everything she needs to do. TIC PURIFICATION OPERATOR * Telephone Encounter - Kathi Tsai APN, CNP - 01/03/2020 1:02 PM CAUSTIC PURIFICATION OPERATOR No concerns with withdrawal from this medications where is patient's Adderall? Most likely this will not be filled early it is a controlled substance highly abusable and patient is on a good dose of this medication. TIC PURIFICATION OPERATOR * Telephone Encounter - Nell Lay RN - 01/03/2020 12:43 [address]ICATION OPER[address] Dr. Nichols patient Patient can not find her Adderall. She is very anxious and restless, knowing that she does not haveher medication. States she has exams at the end of the week. Her Adderall is due to be filled on 01/12/20. Patient is requesting authorization for an early fill. TIC PURIFICATION OPERATOR * Telephone Encounter - Nell Lay RN - 01/03/2020 9:50 AM CST ----- Message from Amanda Aidan Monique sent at 01/03/2020 8:32 AM CAUSTIC PURIFICATION OPERATOR ----- Erika [phone] Simone Needing to talk with a nurse about not being able to find her adderall. TIC PURIFICATION OPERATOR documented in this encounter Plan of Treatment Not on file documented as of this encounter Visit Diagnoses Not on filedocumented in this encounter Additional Health Concerns Assessment Noted Time PHQ-9 Depression Total Score: 18 019 1:00 PM CDT documented as of this encounter Care Teams Manager Architectural Relationship Specialty Start Date End Date Elba Velazquez MD [address] [facility] [address] [place] [address] PCP - General Internal Medicine 05/08/17 01/26/23 BelowKiel MD [address] [place] [address] Consulting Physician Orthopaedic Sports Medicine 09/08/16 Torey Saleh [facility] [address] [facility] [address] [place] [address] Behavioral Therapist Licensed Clinical Professional Counselor 03/25/18 documented as of this encounter
--- OUTSIDE RECORDS SUMMARY | 2024-11-20 16:55 | XMS_ITS | Encounter Summary ---
Author Organization [facility] Address [address] [place] [address] Phone Care Team Providers Care Dandy Tender Name Role Phone Below, Kiel Reed MD Unavailable [phone] Elba Velazquez MD Primary Care Provider [phone] Torey Saleh [facility] Unavailable Unavailable Reason for Visit * Reason Onset Date Comments Medication Refill 12/13/2019 Adderall Encounter Details Date Type Department Care Team (Late st Contact Info) Description 12/13/2019 [facility]ill [facility] Psychology [address] [place], [place] [phone] Jose Nichols MD [address] [place] [address] Medication Refill (Adderall) Social History Tobacco Use Types Packs/Day Years [...] on file Legal Sex Female 3:08 AM DATA SCIENCES DIRECTOR Gender Identity Not on file Sexual Orientation Not on file documented as of this encounter Miscellaneous Notes * Telephone Encounter - Aysha Mancini RN - 12/13/2019 12:09 PM CST Refill request received for Adderall 30 mg. CORI: 06/21/2019 NOV: 02/29/2020 Last Ordered: 10/26/19 #60+0 Medication pended and routed for review. SCIENCES DIRECTOR * Telephone Encounter - Aysha Mancini RN - 12/13/2019 11:58 AM CST ----- Message from Amanda Monique sent at 12/13/2019 8:06 AM DATA SCIENCES DIRECTOR ----- Regarding: Refill Erika [phone] Simone Needing a refill on her adderall. She uses [facility] in [place]. SCIENCES DIRECTOR documented in this encounter Plan of Treatment Not on file documented as of this encounter Visit Diagnoses Diagnosis Attention deficit hyperactivity disorder (ADHD), combined type documented in this encounter Additional Health Concerns Assessment Noted Time PHQ-9 Depression Total Score: 18 02/24/ 019 1:00 PM CDT documented as of this encounter Care Teams Dandy Tender Relationship Specialty Start Date End Date Elba Velazquez MD [address] [facility] [address] [place], [place] [address] PCP - General Internal Medicine 05/08/17 01/26/23 Kiel Zelaya MD [address] [place], [place] [address] Consulting Physician Orthopaedic Sports Medicine 09/08/16 Torey Saleh [facility] [address] [place] [address] Behavioral Therapist Licensed Clinical Professional Counselor 03/25/18 documented as of this encounter
--- OUTSIDE RECORDS SUMMARY | 2024-11-20 16:55 | XMS_ITS | Encounter Summary ---
Author Organization [facility] Address [address] [place] [address] Phone Care Team Providers Care Four H Agent Name Role Phone Below, Kiel Reed MD Unavailable [phone] Elba Velazquez MD Primary Care Provider [phone] Torey Saleh [facility] Unavailable Unavailable Reason for Visit * Reason Onset Date Comments Medication Management 12/16/2019 Encounter Details Date Type Department Care Team (Late st Contact Info) Description 12/16/2019 [place] [facility] [place] [facility] [place] [address] [place], [place] [phone] Jose Nichols MD [address] [place], [place] [id number] Medication Management Social History Tobacco Use Types [...] file Legal Sex Female 3:08 AM QUALITY COMPLIANCE COORDINATOR Gender Identity Not on file Sexual Orientation Not on file documented as of this encounter Miscellaneous Notes * Telephone Encounter - Nell Lay RN - 12/16/2019 9:42 AM CST Patient called to check on the status of Adderall refill request. Noted prescriptions were sent to [facility] in [place], [place] for November, December, and January. Patient notified of above. Patient agreed and verbalized understanding. ITY COMPLIANCE COORDINATOR * Telephone Encounter - Nell Lay RN - 12/16/2019 9:42 AM CST ----- Message from Amanda Bermudez Eneida sent at 12/16/2019 8:32 AM QUALITY COMPLIANCE COORDINATOR ----- Regarding: Refill 2nd Call Erika [phone] Simone Calling to check on the medication refill request her pharmacy sent over on Thursday. ITY COMPLIANCE COORDINATOR documented in this encounter Plan of Treatment Not on file documented as of this encounter Visit Diagnoses Not on filedocumented in this encounter Additional Health Concerns Assessment Noted Time PHQ-9 Depression Total Score: 18 019 1:00 PM CDT documented as of this encounter Care Teams Four H Agent Relationship Specialty Start Date End Date Elba Velazquez MD [address] [facility] [address] [place] [address] PCP - General Internal Medicine 05/08/17 01/26/23 Kiel Zelaya MD [address] [place] [address] Consulting Physician Orthopaedic Sports Medicine 09/08/16 Torey Saleh [facility] [address] [facility] [address] [place] [address] Behavioral Therapist Licensed Clinical Professional Counselor 03/25/18 documented as of this encounter
--- OUTSIDE RECORDS SUMMARY | 2024-11-20 16:55 | XMS_ITS | Encounter Summary ---
Author Organization [facility] Address [address] [place] [address] Phone Care Team Providers Care Incinerator Attendant Name Role Phone Below, Kiel Reed MD Unavailable [phone] Elba Velazquez MD Primary Care Provider [phone] Torey Saleh [facility] Unavailable Unavailable Encounter Details Date Type Department Care Team (Late st Contact Info) Description 01/30/2020 4:15 PM CDT [facility] [address] [place] [address] Avis Mac, DO [address] [place] [id number] Numbness of fingers of both hands; Elevated liver enzymes Discharge Disposition: Discharged to [...] on file 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 Gender Identity Not on file Sexual Orientation Not on file documented as of this encounter Plan of Treatment Not on file documented as of this encounter Procedures Procedure Name Priority Date/Time Associated Diagnosis Comments HEMOGLOBIN A1C W/ ESTIMATED GLUCOSE Routine 01/30/2020 4:29 PM CDT Numbness of fingers of both hands COPPER, SERUM, AGUILAR CUS Routine 01/30/20 20 4:29 PM CDT Numbness of fingers of both hands THYROGLOBULIN ANTIBODY Routine 0 4:29 PM CDT Numbness of fingers of both hands ERYTHROCYTE SEDIMENTATION RATE (ESR) Routine 01/30/2020 4:29 PM CDT Numbness of fingers of both hands RHEUMATOID FACTOR (RFQT) QUANT Routine 01/30/2020 4:29 PM CDT Numbness of fingers of both hands IMMUNOFIXATION W/ ELECTROPHORESIS SERUM Routine 01/30/2020 4:29 PM CDT Numbness of fingers of both hands CMP (COMPREHENSIVE METABOLIC PANEL) Routine 01/30/2020 4:29 PM CDT Elevated liver enzymes C-REACTIVE PROTEIN (CRP) QUANT Routine 01/30/2020 4:29 PM CDT Numbness of fingers of both hands ANTI THYROID PEROXIDASE ANTIBODY Routine 01/30/2020 4:29 PM CDT Numbness of fingers of both hands JOSUE SCREEN MULTIPLEX W/REFLEX ANNIE Routine 01/30/2020 4:29 PM CDT Numbness of fingers of both hands documented in this encounter Results * CMP (COMPREHENSIVE METABOLIC PANEL) (01/30/2020 4:29 PM CDT) SODIUM 140 136 - 145 mmol/L 01/30/2020 5:44 PM CDT [facility] POTASSIUM 3.7 3.5 - 5.1 mmol/L 01/30/2020 5:44 PM CDT [facility] CHLORIDE 106 98 - 107 mmol/L 01/30/2020 5:44 PM CDT [facility] CO2, VENOUS 26 22 - 30 mmol/L 01/30/2020 5:44 PM CDT [facility] ANION GAP 8.0 <18.0 mmol/L 01/30/2020 5:44 PM CDT [facility] GLUCOSE 87 70 - 99 mg/dL 01/30/2020 5:44 PM CDT [facility] BUN 10 5 - 18 mg/dL 01/30/2020 5:44 PM CDT [facility] CREATININE, BLOOD 0.79 0.60 - 1.00 mg/dL 01/30/2020 5:44 PM CDT [facility] BUN/CREATININE RATIO 13 12 - 20 ratio 01/30/2020 5:44 PM CDT [facility] TOTAL PROTEIN 7.3 6.3 - 8.2 g/dL 01/30/2020 5:44 PM CDT [facility] ALBUMIN 4.8 3.5 - 5.0 g/dL 01/30/2020 5:44 PM CDT [facility] A/G RATIO 1.9 1.0 - 2.2 01/30/2020 5:44 PM CDT [facility] CALCIUM 9.6 9.1 - 10.5 mg/dL 01/30/2020 5:44 PM CDT [facility] T BILI 0.5 0.2 - 1.2 mg/dL 01/30/2020 5:44 PM CDT [facility] SGOT (AST) 14 5 - 34 U/L 01/30/2020 5:44 PM CDT [facility] SGPT (ALT) 16 0 - 55 U/L 01/30/2020 5:44 PM CDT [facility] ALKALINE PHOSPHATASE 51 40 - 150 U/L 01/30/2020 5:44 PM CDT [facility] GFR, EST. NONAFRICAN >60 >=60 01/30/2020 5:44 PM CDT [facility] GFR, EST. >60 >=60 01/30/2020 5:44 PM CDT [facility] Comment: Creatinine Clearance is the preferred criteria for selecting drug dose adjustments in renally impaired patients. ??The GFR is provided as additional pertinent clinical information. GFR is reported in mL/min/1.73 sq m. Blood specimen (specimen) No Phlebotomy Charged / Unknown 01/30/2020 4:29 PM CDT 01/30/2020 5:11 PM CDT Avis Mac DO CHEMISTRY ORDERABLES Final Re sult Performing Organization Address City/[facility]/ZIP Co de Phone Number [facility] [address] [place] [address], [place] * COPPER, SERUM, AGUILAR CUS (01/30/2020 4:29 PM CDT) COPPER 1.10 0.75 - 1.45 mcg/mL 01/31/2020 1:07 PM CDT [facility] Comment: ADDITIONAL INFORMATION This test was developed and its performance characteristics determined by [facility] in a manner consistent with CLIA requirements. This test has not been cleared or approved by the U.S. Food and Drug Administration. Test Performed by: [facility] - [address] [address] Mining Analyst: Tano Maldonado M.D. Ph.D.; CLIA# [id number] Blood specimen (specimen) No Phlebotomy Charged / Unknown 01/30/2020 4:29 PM CDT 01/30/2020 4:51 PM CDT Avis Mac DO LAB SEND OUTS Final Result Performing Organization Address [facility]/ZIP Co de Phone Number [facility] [address] [place] [address], [place] * C-REACTIVE PROTEIN (CRP) QUANT (01/30/2020 4:29 PM CDT) C-REACTIVE PROTEIN 0.10 <0.50 mg/dL 01/30/2020 5:44 PM CDT [facility] Blood specimen (specimen) No Phlebotomy Charged / Unknown 01/30/2020 4:29 PM CDT 01/30/2020 5:11 PM CDT us Avis Mac DO CHEMISTRY ORDERABLES Final Re sult Performing Organization Address [facility]/ZIP Co de Phone Number [facility] [address] [place] [address], [place] * HEMOGLOBIN A1C W/ ESTIMATED GLUCOSE (01/30/2020 4:29 PM CDT) HGB-A1C 5.1 4.0 - 6.0 % 01/30/2020 5:45 PM CDT [facility] Est Average Glucose 99.7 mg/dL 01/30/2020 5:45 PM CDT [facility] Blood specimen (specimen) No Phlebotomy Charged / Unknown 01/30/2020 4:29 PM CDT 01/30/2020 5:12 PM CDT Narrative [facility] - 01/30/2020 5:45 PM CDT Specimens containing greater than 5% of Hemoglobin F may result in lower than expected % HbA1C results. us Avis Mac DO CHEMISTRY ORDERABLES Final Re sult Performing Organization Address [facility] Co de Phone Number [facility] [address] [place] [address], [place] * ANTI THYROID PEROXIDASE ANTIBODY (01/30/2020 4:29 PM CDT) Thyroid peroxidase antibody <3 <6 IU/mL 01/30/2020 6:19 PM CDT [facility] Blood specimen (specimen) No Phlebotomy Charged / Unknown 01/30/2020 4:29 PM CDT 01/30/2020 5:10 PM CDT us Avis Mac DO CHEMISTRY ORDERABLES Final Re sult Performing Organization Address City/[facility]/ZIP Co de Phone Number [facility] [address] [place] [address], [place] * THYROGLOBULIN ANTIBODY (01/30/2020 4:29 PM CDT) THYROGLOBULIN AB <3 <=4 IU/mL 01/30/20 20 6:19 PM CDT [facility] Blood specimen (specimen) No Phlebotomy Charged / Unknown 01/30/2020 4:29 PM CDT 01/30/2020 5:10 PM CDT Avis Mac DO CHEMISTRY ORDERABLES Final Re sult Performing Organization Address [facility] Co de Phone Number [facility] [address] [place] [address], [place] * JOSUE SCREEN MULTIPLEX W/REFLEX ANNIE (01/30/2020 4:29 PM CDT) Pathologist [facility] JOSUE SCR MULTIPLEX Negative Negative, See comment 01/31/2020 11:19 AM CDT [facility] Blood specimen (specimen) No Phlebotomy Charged / Unknown 01/30/2020 4:29 PM CDT 01/30/2020 5:11 PM CDT Narrative [facility] - 01/31/2020 11:19 AM CDT Antibody testing was performed by multiplex flow immunoassay on the BioPlex platform. Avis Mac DO IMMUNOLOGY ORDERABLES Final R esult Performing Organization Address [facility] Co de Phone Number [facility] [address] [place] [address], [place] * RHEUMATOID FACTOR (RFQT) QUANT (01/30/2020 4:29 PM CDT) RHEUMATOID FACTOR QT <15 <30 IU/mL 01/30/2020 6:03 PM CDT [facility] Blood specimen (specimen) No Phlebotomy Charged / Unknown 01/30/2020 4:29 PM CDT 01/30/2020 5:11 PM CDT Narrative [facility] - 01/30/2020 6:03 PM CDT RHEUMATOID FACTORS CAN BE FOUND IN RHEUMATOID ARTHRITIS, SYPHILIS, VIRAL INFECTIONS, LEPROSY, CHRONIC LIVER DISEASE, NEOPLASMS, AND OTHER INFLAMMATORY CONDITIONS. RF PREVALENCE ALSO INCREASES WITH AGE. THUS A POSITIVE TEST IS NOT RESTRICTED TO RA. CONVERSELY, A NEGATIVE TEST DOES NOT RULE OUT RA, RHEUMATOID FACTORS ARE NOT DETECTABLE IN 10% OF ADULTS WITH THE DISEASE. Avis Mac DO CHEMISTRY ORDERABLES Final Re sult Performing Organization Address [facility] Co de Phone Number [facility] [address] [place] [address], [place] * ERYTHROCYTE SEDIMENTATION RATE (ESR) (01/30/2020 4:29 PM CDT) Pathologist [facility] ESR (SED RATE, ERYTHROCYTE SEDIMENTATION RATE) 3 <20 mm/h 01/30/2020 5:23 PM CDT [facility] Comment:Patients presenting with abnormally high or low RBC counts and other hemoglobinopathies could affect the results for the erythrocyte sedimentation rate (ESR). Results should be clinically correlated. Blood specimen (specimen) No Phlebotomy Charged / Unknown 01/30/2020 4:29 PM CDT 01/30/2020 5:12 PM CDT Avis Mac DO HEMATOLOGY ORDERABLES Final R esult Performing Organization Address [facility] de Phone Number [facility] [address] [place] [address], [place] * (ABNORMAL) IMMUNOFIXATION W/ ELECTROPHORESIS SERUM (01/30/2020 4:29 PM CDT) TOTAL PROTEIN 7.0 6.3 - 8.2 g/dL 02/01/2020 2:27 PM CDT [facility] % ALBUMIN 66.9(H) 55.8 - 66.7 % 02/01/2020 2:27 PM CDT [facility] ALBUMIN SERUM 4.7 2.5 - 5.4 g/dL 02/01/2020 2:27 PM CDT [facility] % ALPHA 1 GLOBULIN 3.8 2.9 - 4.9 % 02/01/2020 2:27 PM CDT [facility] ALPHA 1 0.3 0.2 - 0.4 g/dL 02/01/2020 2:27 PM CDT [facility] % ALPHA 2 GLOBULIN 9.9 7.1 - 11.8 % 02/01/2020 2:27 PM CDT [facility] ALPHA 2 0.7 0.5 - 1.0 g/dL 02/01/2020 2:27 PM CDT [facility] % BETA 6.9(L) 8.4 - 13.1 % 02/01/2020 2:27 PM CDT [facility] BETA-GLOBULIN 0.5 0.5 - 1.1 g/dL 02/01/2020 2:27 PM CDT [facility] % GAMMA GLOBULIN 12.5 11.1 - 18.8 % 02/01/2020 2:27 PM CDT [facility] GAMMA 0.9 0.7 - 1.5 g/dL 02/01/2020 2:27 PM CDT [facility] IMMUNOGLOBULIN G 990 552-1,63 1 mg/dL 02/01/2020 2:27 PM CDT [facility] IMMUNOGLOBULIN A 59(L) 65 - 421 mg/dL 02/01/2020 2:27 PM CDT [facility] IMMUNOGLOBULIN M 72 33 - 293 mg/dL 02/01/2020 2:27 PM CDT [facility] INTERPRETATION SERUM No abnormal protein band is detected by serum protein electrophoresis. Serum immunofixation electrophoresis is negative for monoclonal immunoglobulins. Reviewed by Alesha Ferguson, Ph.D./Shay Pendleton M.D. 02/01/2020 2:27 PM CDT [facility] A/G RATIO, SERUM 2.0 02/01/20 20 2:27 PM CDT [facility] Blood specimen (specimen) Venipuncture / Unknown 01/30/2020 4:29 PM CDT 01/30/2020 5:11 PM CDT us Avis Mac DO CHEMISTRY ORDERABLES Final Re sult [facility] [address] [place] [address], documented in this encounter Visit Diagnoses Diagnosis Numbness of fingers of both hands Disturbance of skin sensation Elevated liver enzymes Nonspecific elevation of levels of transaminase or lactic acid dehydrogenase (LDH) documented in this encounter Additional Health Concerns Assessment Noted Time PHQ-9 Depression Total Score: 18 019 1:00 PM CDT documented as of this encounter Care Teams Incinerator Attendant Relationship Specialty Start Date End Date Elba Velazquez MD [address] [place] [address] PCP - General Internal Medicine 05/08/17 01/26/23 BelowKiel MD [address] [place] [address] Consulting Physician Orthopaedic Sports Medicine 09/08/16 Torey Saleh [facility] [address] [place] [address] Behavioral Therapist Licensed Clinical Professional Counselor 03/25/18 documented as of this encounter
--- OUTSIDE RECORDS SUMMARY | 2024-11-20 17:04 | XMS_ITS | Encounter Summary ---
Author Organization [facility] Healthcare Address [address] [place] [address] Care Team Providers Care Manager Compliance Name Role Phone Rita Sykes Primary Care Provider [phone] Reason for Visit * Reason Onset Date Comments Congestion 09/01/2024 Cough 09/01/2024 Encounter Details Date Type Department Care Team (Late st Contact Info) Description 09/01/2024 Nurse Triage [facility] Family Medicine [address] [place] [address] Rita Sykes PA [address] [place] [address] Social History Tobacco Use Types Packs/Day Years Used Date Smoking Tobacco: Never Smokeless Tobacco: Never AUDIT-C Answer Date Recorded Q1: How often do you have a drink containing alcohol? Never 08/12/2024 Q2: How many drinks containi ng alcohol do you have on a typical day when you are drinking? Patient does not drink Q3: How often do you have si x or more drinks on one occasion? Never 08/12/2024 PHQ-2 Answer Date Recorded PHQ-2 Total Score 16 07/12/2024 Comments No Sex and Gender Information Value Date Recorded Sex Assigned at Not on file Legal Sex Female 9:13 AM CDT Gender Identity Not on file Sexual Orientation Not on file documented as of this encounter Miscellaneous Notes * Telephone Encounter - Vijaya Ward RN - 09/01/2024 8:13 AM CDT Complaint: Chest congestion, cough, yellow mucus, hoarseness. Duration: 4 days ago Details: Has not checked for a fever but does feel feverish, pressure in the chest when she inhales, smokes marijuana occasionally but is not a cigarette smoker. Coughed pretty hard a few times whiletalking to RN. Is wheezing a little bit. Nurse Triage Protocol Disposition: Go to office now. Plans to do a walk-in now at the [facility], has the address. Nursing care advice also provided. Encouraged to call back if there are further questions or concerns. Encouraged to call back if symptoms persist or worsen. Reason for Disposition Wheezing is present Protocols used: [id number] * Telephone Encounter - Vijaya Ward RN - 09/01/2024 8:07 AM CDT Regarding: congestion in chest, coughing up dark and yellow mucus ----- Message from Lizz Alonso sent at 09/01/2024 8:07 AM CDT ----- Symptom Based Call Chief Complaint(s): congestion in chest, coughing up dark and yellow mucus Duration: Thursday What type of symptom(s) is the patient experiencing? Non-Emergent. Is this a new or reoccurring symptom(s)? new What have you tried to help your symptom(s)? none Why was appointment not scheduled? Appointment availability did not meet the patient's need. Additional Comments: none Does message need to be routed? Yes-Action Needed documented in this encounter Plan of Treatment Not on file documented as of this encounter Visit Diagnoses Not on filedocumented in this encounter Care Teams Manager Compliance Relationship Specialty Start Date End Date Rita Sykes PA [address] [place] [address] PCP - General Internal Medicine 04/05/21 documented as of this encounter
--- OUTSIDE RECORDS SUMMARY | 2024-11-20 17:04 | XMS_ITS | Encounter Summary ---
Author Organization [facility] Healthcare Address [address] [place] [address] Care Team Providers Care Occupational Analyst Name Role Phone Rita Sykes Primary Care Provider +1- [phone] Reason for Visit * Reason Comments COVID-19 EVALUATION Pt c/o chest congest ion for 3 days and in general does not feel well Encounter Details Date Type Department Care Team (Late st Contact Info) Description 09/01/2024 9:15 AM CDT Office Visit [facility] Convenient Care at [address] [address] Berna Lewis NP [address] [place] [address] Viral URI with cough (Primary Dx) Social History Tobacco Use Types Packs/Day Years [...] Sign Reading Time Taken Comments Blood Pressure 120/70 09/01/2024 9:09 AM CDT Pulse 90 09/01/2024 9:09 AM CDT Temperature 36.8 ??C (98.3 ??F) 09/01/2024 9:09 AM CD T Respiratory Rate 18 09/01/2024 9:09 AM CDT Oxygen Saturation 99% 09/01/2024 9:09 AM CDT Inhaled Oxygen Concentration - - Weight 77.6 kg (171 lb) 09/01/2024 9:09 AM CDT Height 172.7 cm (5' 8 ) 09/01/2024 9:09 AM CDT Body Mass Index 26 09/01/2024 9:09 AM CDT documented in this encounter Patient Instructions * Patient Instructions* Berna Lewis, VOLLEYBALL COACH - 09/01/2024 9:15 AM CDT Tessalon as prescribed for cough. Avoid irritants such as cigarette smoke, pollen, dust, etc as this will aggravate cough. Suck on cough drops or hard candies to soothe a dry or sore throat. Cough drops won't stop your cough, but they may make your throat feel better. Over the counter loratadine (Claritin) or cetirizine (Zyrtec) to reduce secretions. Mucinex to thin secretions Breathe moist air from a humidifier, a hot shower, or a sink filled with hot water. The heat and moisture can help keep mucus in your airways moist so you can cough it out easily. Use nonprescription medicine, such as acetaminophen, ibuprofen, or aspirin, to relieve fever and body aches. Don't give aspirin to anyone younger than age 20. Rest more than usual. Drink plenty of fluids so that you do not become dehydrated and to keep mucous thin. Use an jtih-edn-syklyqm cough medicine such as Delsym or Robitussin. (Cough medicines may not be safe for young children or for people who have certain health problems.) Cough suppressants may help you to stop coughing. Expectorants, such as Mucinex, can help you bring up mucus when you cough. Follow up with primary care physician in 1 week, or sooner if symptoms worsen. GO TO ER WITH ANY WORSENING OF SYMPTOMS INCLUDING, BUT NOT LIMITED TO: SUDDEN HIGH FEVER, DIFFICULTY BREATHING OR CATCHING YOUR BREATH, OR SHORTNESS OF BREATH. * Attachments The following attachments cannot be sent through Care Everywhere. * Acute Cough (Procurement Buyer) (Japanese) documented in this encounter Ordered Prescriptions Prescription Sig Dispense Quantity Refills Last Filled Start Date End Date benzonatate (TESSALON) 200 mg capsuleIndications :Viral URI with cough Take 1 capsule (200 mg total) by mouth 3 (three) times a day as needed for cough 30 capsule 09/01/2024 4 documented in this encounter Progress Notes * Berna Lewis NP - 09/01/2024 9:15 AM CDT Images from the original note were not included. Patient ID: Erika Childs is a 34 y.o. female followed by Rita Sykes PA Chief Complaint Patient presents with COVID-19 EVALUATION Pt c/o chest congestion for 3 days and in general does not feel well Patient presents to the clinic with reports of cough and congestion for 3 days. Denies fevers, dizziness, chest pain, difficulty breathing, and chills. She has taken no OTC medications for her symptoms. Review of Systems Constitutional: Negative for chills, fatigue and fever. HENT: Positive for congestion and rhinorrhea. Negative for ear pain, postnasal drip, sinus pressureand sore throat. Respiratory: Positive for cough. Negative for shortness of breath and wheezing. Cardiovascular: Negative for chest pain. Gastrointestinal: Negative for nausea. Musculoskeletal: Negative for myalgias. Neurological: Negative for headaches. Vitals: 09/01/24 0909 BP: 120/70 Pulse: 90 Resp: 18 Temp: 36.8 ??C (98.3 ??F) SpO2: 99% Weight: 77.6 kg (171 lb) Height: 172.7 cm (5' 8 ) Recent Results (from the past 24 hour(s)) POC Influenza A/B, COVID-19 antigen Collection Time: 09/01/24 9:05 AM Result Value Ref Range Influenza A Ag, POC Negative Negative Influenza B Ag, POC Negative Negative COVID-19 Ag POC Presumptive Negative Presumptive Negative, Invalid Physical Exam Vitals reviewed. Constitutional: General: She is not in acute distress. Appearance: Normal appearance. She is not ill-appearing. HENT: Head: Normocephalic. Right Ear: Tympanic membrane, ear canal and external ear normal. No middle ear effusion. Tympanic membrane is not erythematous or bulging. Left Ear: Tympanic membrane, ear canal and external ear normal. No middle ear effusion. Tympanic membrane is not erythematous or bulging. Nose: Congestion and rhinorrhea present. Right Turbinates: Not swollen. Left Turbinates: Not swollen. Right Sinus: No maxillary sinus tenderness or frontal sinus tenderness. Left Sinus: No maxillary sinus tenderness or frontal sinus tenderness. Mouth/Throat: Lips: [place]. Mouth: Mucous membranes are moist. Pharynx: Uvula midline. No pharyngeal swelling, oropharyngeal exudate or posterior oropharyngeal erythema. Cardiovascular: Rate and Rhythm: Normal rate and regular rhythm. Pulmonary: Effort: Pulmonary effort is normal. No respiratory distress. Breath sounds: Normal breath sounds. No decreased breath sounds or wheezing. Comments: Coughing observed Lymphadenopathy: Cervical: No cervical adenopathy. Skin: General: Skin is warm. Neurological: Mental Status: She is oriented to person, place, and time. Psychiatric: Behavior: Behavior is cooperative. Diagnoses and all orders for this visit: Viral URI with cough (Primary) - XR Chest PA Lateral 2 Views; Future - POC Influenza A/B, COVID-19 antigen - benzonatate (TESSALON) 200 mg capsule; Take 1 capsule (200 mg total) by mouth 3 (three) times a day as needed for cough Orders Placed This Encounter Procedures XR Chest PA Lateral 2 Views Standing Status: Future Number of Occurrences: 1 Standing Expiration Date: 09/01/2025 Order Specific Question: Is the patient ? Answer: No Order Specific Question: Where should this order be performed? Answer: [facility] [[id number]] Order Specific Question: Performing department: Answer: [facility] [[id number]] POC Influenza A/B, COVID-19 antigen Order Specific Question: Is the Patient experiencing symptoms consistent with COVID? Answer: Yes Order Specific Question: Is the patient hospitalized? Answer: No Order Specific Question: Is the patient admitted to an ICU? Answer: No Order Specific Question: Is this the first COVID-19 test for this patient? Answer: No Order Specific Question: Does the patient currently work in a healthcare facility with direct patient contact? Answer: No Order Specific Question: Is the patient a resident of a congregate care or living setting? Answer: No Order Specific Question: ? Answer: No Assessment/Plan # acute upper respiatory infection --likely viral --CXR pending --exam findings warrant no antibiotics, antiviral, or steroid at this time --Tessalon sent for cough --Yncd-oop-ctdihlr antihistamine such as Claritin or Zyrtec will aid in alleviation of symptoms such as nasal drainage and sinus drainage. Benadryl can be sedating, I suggest using it at bedtime. --Nasal spray, such as Flonase may also aid in nasal congestion. This may also be purchased over the counter. --COVID/FLU swab negative today --ED presentation with one or more of the following symptoms: fever uncontrolled with antipyretics,shortness of breath, chest discomfort, uncontrolled n/v/d --f/u with PCP in 5-7 days if symptoms do not improve/worsen Disposition Treatment plan including expectations, follow up, and return precautions discussed with patient/parent, verbalizes understanding. Medication dosage, use, and potential adverse reactions discussed with patient/parent. Advised to follow up with PCP if symptoms do not resolve as expected or sooner if condition worsens. Discussed Signs/symptoms warranting ER evaluation including worsening fever, increased shortness ofbreath, chest pain, severe N/V/D, or any other worrisome symptoms Patient and/or guardian was given an opportunity to ask questions, questions answered. Patient Education Tessalon as prescribed for cough. Avoid irritants such as cigarette smoke, pollen, dust, etc as this will aggravate cough. Suck on cough drops or hard candies to soothe a dry or sore throat. Cough drops won't stop your cough, but they may make your throat feel better. Over the counter loratadine (Claritin) or cetirizine (Zyrtec) to reduce secretions. Mucinex to thin secretions Breathe moist air from a humidifier, a hot shower, or a sink filled with hot water. The heat and moisture can help keep mucus in your airways moist so you can cough it out easily. Use nonprescription medicine, such as acetaminophen, ibuprofen, or aspirin, to relieve fever and body aches. Don't give aspirin to anyone younger than age 20. Rest more than usual. Drink plenty of fluids so that you do not become dehydrated and to keep mucous thin. Use an bjnr-uwc-nuorqwq cough medicine such as Delsym or Robitussin. (Cough medicines may not be safe for young children or for people who have certain health problems.) Cough suppressants may help you to stop coughing. Expectorants, such as Mucinex, can help you bring up mucus when you cough. Follow up with primary care physician in 1 week, or sooner if symptoms worsen. GO TO ER WITH ANY WORSENING OF SYMPTOMS INCLUDING, BUT NOT LIMITED TO: SUDDEN HIGH FEVER, DIFFICULTY BREATHING OR CATCHING YOUR BREATH, OR SHORTNESS OF BREATH. Berna Lewis NP This office note has been partially dictated using Joshfire software, and as a result portions of the record may have been created with this software. Occasional wrong-word or 'yvlph-o-vlrx' substitutions may have occurred due to the inherent limitations of voice recognition software. Read the chartcarefully and recognize, using context, where substitutions have occurred. documented in this encounter Plan of Treatment Not on file documented as of this encounter Procedures Procedure Name Priority Date/Time Associated Diagnosis Comments POC INFLUENZA A/B, COVID-19 ANTIGEN Routine 09/01/2024 9:05 AM CDT Viral URI with cough documented in this encounter Results * XR Chest PA Lateral 2 Views (09/01/2024 9:32 AM CDT) Anatomical Region Laterality Modality Body, Chest N/A Digital Radiogra phy 09/01/2024 9:47 AM CDT Narrative 09/01/2024 9:48 AM CDT EXAM DESCRIPTION: XR CHEST PA LATERAL 2 VIEWS REASON FOR STUDY: cough ?? Pt complains of cough x 1 week. No hx chest surgery,asthma,copd,cancer,heart disease. Former smoker quit 6 years ago, smoked for 2 years 1 ppd ?? TECHNIQUE: 2 ??radiographic view(s) of the chest. COMPARISON: None available FINDINGS: LUNGS: ??No focal consolidation or pleural effusion. No pneumothorax. HEART/MEDIASTINUM: ??Cardiac silhouette normal in size. Mediastinal and hilar contours appear normal. LINES/TUBES: ??None. BONES: ??No acute osseous abnormality. IMPRESSION: No acute cardiopulmonary abnormality. THIS IS AN ELECTRONICALLY VERIFIED FINAL REPORT 09/01/2024 9:48 AM - Electronically signed by ??Raffi Santos M.D. AG D: ??09/01/2024 9:48 AM T: Report ID: [id number] Reading Location: ??[id number] Procedure Note Raffi Santos MD - 09/01/2024 EXAM DESCRIPTION: XR CHEST PA LATERAL 2 VIEWS REASON FOR STUDY: cough Pt complains of cough x 1 week. No hx chestsurgery,asthma,copd,cancer,heart disease. Former smoker quit 6 years ago, smoked for 2 years 1 ppd TECHNIQUE: 2 radiographic view(s) of the chest. COMPARISON: None available FINDINGS: LUNGS: No focal consolidation or pleural effusion. Nopneumothorax. HEART/MEDIASTINUM: Cardiac silhouette normal in size. Mediastinal andhilar contours appear normal. LINES/TUBES: None. BONES: No acute osseous abnormality. IMPRESSION: No acute cardiopulmonary abnormality. THIS IS AN ELECTRONICALLY VERIFIED FINAL REPORT 09/01/2024 9:48 AM - Electronically signed by Rfafi Santos M.D. AG T: Report ID: [id number] Reading Location: [id number] us Berna Lewis VOLLEYBALL COACH IMG XR PROCEDURES Final Result * POC Influenza A/B, COVID-19 antigen (09/01/2024 9:05 AM CDT) Influenza A Ag, POC Negative Negative [facility] Influenza B Ag, POC Negative Negative [facility] COVID-19 Ag POC Presumptive Negative Presumptive Negative, Invalid [facility] Nasal 09/01/2024 9:05 AM CDT us Berna Lewis VOLLEYBALL COACH POINT OF CARE TEST ORDERABLES Final Result [facility] [address] documented in this encounter Visit Diagnoses Diagnosis Viral URI with cough- Primary Cough, unspecified type documented in this encounter Historical Medications * This list may reflect changes made after this encounter. Vraylar 3 mg capsule capsule TAKE 1 CAPSULE BY MOUTH EVERY DAY AT BEDTIME 2024 lisdexamfetamine (VYVANSE) 30 mg capsule Take by mouth daily 08/03/2024 added in this encounter Additional Health Concerns Infection Onset Date Last Indicated Resolved Time COVID: Suspected 09/01/2024 09/01/2024 09/01/2024 9:25 AM CDT COVID: Suspected 09/01/2024 09/01/2024 09/01/2024 9:28 AM CDT documented as of this encounter Care Teams Occupational Analyst Relationship Specialty Start Date End Date Rita Sykes PA [address] [facility] [address] [place] [address] PCP - General Internal Medicine 04/05/21 documented as of this encounter
--- OUTSIDE RECORDS SUMMARY | 2024-11-20 17:04 | XMS_ITS | Encounter Summary ---
Author Organization [facility] Healthcare Address [address] [place] [address] Care Team Providers Care Track Announcer Name Role Phone Rita Sykes Primary Care Provider +1- [phone] Encounter Details Date Type Department Care Team (Latest Contact Info) Description 09/01/2024 9:25 AM CDT Ancillary Procedure [facility] Imaging at [address] [address] Cough, unspecified type Social History Tobacco Use Types Packs/Day [...] Procedure Name Priority Date/Time Associated Diagnosis Comments XR CHEST PA LATERAL 2 VIEWS Schedule RAJESH, Read RAJESH (Appt Today, Awaiting Results) 09/01/2024 9:32 AM CDT Cough, unspecified type documented in this encounter Results * XR [...] 9:48 AM - Electronically signed by ??Raffi MENDZE D: ??09/01/2024 9:48 AM T: Report ID: [id number] Reading Location: ??[id number] Procedure Note Raffi Santos MD - 09/01/2024 [...] 09/01/2024 9:48 AM - Electronically signed by Raffi Santos M.D. AG T: Report ID: [id number] Reading Location: [id number] Berna Lewis DOOR MACHINE OPERATOR IMG XR PROCEDURES Final Result documented in this encounter Visit Diagnoses Diagnosis Cough, unspecified type documented in this encounter Additional Health Concerns Infection Onset Date Last Indicated Resolved Time COVID: Suspected 09/01/2024 09/01/2024 09/01/2024 9:25 AM CDT COVID: Suspected 09/01/2024 09/01/2024 09/01/2024 9:28 AM CDT documented as of this encounter Care Teams Track Announcer Relationship Specialty Start Date End Date Rita Sykes PA [address] [address] PCP - General Internal Medicine 04/05/21 documented as of this encounter
--- OUTSIDE RECORDS SUMMARY | 2024-11-20 17:04 | XMS_ITS | Encounter Summary ---
Author Organization [facility] Healthcare Address [address] [place] [address] Care Team Providers Care Fund Manager Name Role Phone Rita Sykes Primary Care Provider +1- [phone] Encounter Details Date Type Department Care Team (Late st Contact Info) Description 06/28/2024 Telephone [facility] Family Medicine [address] [place] [address] Rita Sykes PA [address] [place] [address] Social History Tobacco Use Types Packs/Day Years Used Date Smoking Tobacco: Never Smokeless Tobacco: Never AUDIT-C Answer Date Recorded Q1: How often do you have a drink containing alcohol? Never 07/12/2024 Q2: How many drinks containi ng alcohol do you have on a typical day when you are drinking? Patient does not drink Q3: How often do you have si x or more drinks on one occasion? Never 07/12/2024 PHQ-2 Answer Date Recorded PHQ-2 Total Score 16 07/12/2024 Comments No Sex and Gender Information Value Date Recorded Sex Assigned at Not on file Legal Sex Female 9:13 AM CDT Gender Identity Not on file Sexual Orientation Not on file documented as of this encounter Miscellaneous Notes * Telephone Encounter - Yadi Berrios MA - 06/28/2024 12:20 PM CDT Opened in error documented in this encounter Plan of Treatment Not on file documented as of this encounter Visit Diagnoses Not on filedocumented in this encounter Additional Health Concerns Infection Onset Date Last Indicated Resolved Time COVID: Suspected 07/12/2024 07/12/2024 07/12/2024 1:19 PM CDT documented as of this encounter Care Teams Fund Manager Relationship Specialty Start Date End Date Rita Sykes PA [address] [address] PCP - General Internal Medicine 04/05/21 documented as of this encounter
--- OUTSIDE RECORDS SUMMARY | 2024-11-20 17:04 | XMS_ITS | Encounter Summary ---
Author Organization [facility] Healthcare Address [address] [place] [address] Care Team Providers Care Tai Chi Instructor Name Role Phone Rita Sykes Primary Care Provider +1- [phone] Reason for Visit * Reason Onset Date Comments Congestion 07/27/2024 Encounter Details Date Type Department Care Team (Late st Contact Info) Description 07/27/2024 Nurse Triage [facility] Family Medicine [address] [place] [address] Rita Sykes PA [address] [place] [address] Social History Tobacco Use Types [...] encounter Miscellaneous Notes * Telephone Encounter - Ariadne Hernandez RN - 07/27/2024 9:03 AM CDT Was seen on 07/12. Allergy symptoms started then. Sinus pressure in face. Unsure if she has a fever.No chills but woke up overnight in cold sweat. Nasal drainage. Draining instantly into mouth. Sore throat. Body aches, 2-3/10. Fatigue. No difficulty breathing. Chest congestion/pressure. Earache. Both ears. Scheduled at Reason for Disposition Earache Protocols used: Sinus Pain or Jncisopmax-BIALP-ZV * Telephone Encounter - Ariadne Hernandez RN - 07/27/2024 8:55 AM CDT Regarding: Heaviness in chest, cough ----- Message from Annalisa Barakat sent at 07/27/2024 8:54 AM CDT ----- Symptom Based Call Chief Complaint(s): Heaviness in chest, cough Duration: Started yesterday What type of symptom(s) is the patient experiencing? Red Flag. Is the patient concerned they are experiencing a medical emergency requiring an ambulance? No Additional Comments: Patient has nasal drainage and hoarseness in voice. Also has chest congestion.Patient has body aches, really tired. Feels like in a Zombie Stage . Patient seen 07/12/24 and patient reports symptoms that are new. Patient went to outpatient therapy and they recommend patient tocall. Does not think has fever. Does message need to be routed? Yes-Action Needed documented in this encounter Plan of Treatment Not on file documented as of this encounter Visit Diagnoses Not on filedocumented in this encounter Care Teams Tai Chi Instructor Relationship Specialty Start Date End Date Rita Sykes PA [address] [facility] [address] [place] [address] PCP - General Internal Medicine 04/05/21 documented as of this encounter
--- OUTSIDE RECORDS SUMMARY | 2024-11-20 17:04 | XMS_ITS | Encounter Summary ---
Author Organization [facility] Healthcare Address [address] [place] [address] Care Team Providers Care Remote Sensing Research Scientist Name Role Phone Rita Sykes Primary Care Provider +1- [phone] Reason for Visit * Reason Comments Procedure Nexplanon removal Encounter Details Date Type Department Care Team (Latest Contact Info) Description 09/02/2024 9:30 AM CDT Procedure visit [facility] Obstetrical Gynecology [address] [address] Ly Gonsalez MD [address] [address] Nexplanon removal (Primary Dx) Social History Tobacco Use Types [...] Sign Reading Time Taken Comments Blood Pressure 102/60 09/02/2024 9:26 AM CDT Pulse - - Temperature - - Respiratory Rate - - Oxygen Saturation - - Inhaled Oxygen Concentration - - Weight 78.3 kg (172 lb 9.6 oz) 09/02/2024 9:26 A M CDT Height 172.7 cm (5' 8 ) 09/02/2024 9:26 AM CDT Body Mass Index 26.24 09/02/2024 9:26 AM CDT documented in this encounter Progress Notes * Ly Gonsalez MD - 09/02/2024 9:30 AM CDT Nexplanon Removal Note Risks and benefits of removal reviewed. Questions answered. Consents signed. Reason for removal: Desires The patient's left arm was palpated and the implant identified. Area prepped with betadine. 3 mL of1% lidocaine was injected at the distal end of the device. A 2 mm incision was made with a #11 scalpel. Any identified fibrotic tissue was dissected away using blunt and/or sharp dissection. The device was removed in its entirety. Steri strips were placed to close/cover the incision and a compressive bandage was applied. The patient tolerated the procedure well. Complications: None New contraception desired: Nothing, plans conception We discussed her medications today as well and I recommended stopping her Vraylar at the least. Dixonorts not taking any of her medications with last but I explained this is not necessaryif she truly needs them. Reviewed risk of low weight and withdrawal with ADHD medications and did recommend lowest dose necessary if able. Ly Gonsalez MD documented in this encounter Plan of Treatment Not on file documented as of this encounter Visit Diagnoses Diagnosis Nexplanon removal- Primary documented in this encounter Discontinued Medications Medication Sig Discontinue Reason Start Date End Da te mirtazapine (REMERON) 7.5 mg tablet Take 1 tablet (7.5 mg total) by mouth daily Therapy completed 07/29/2024 09/02/2024 dextroamphetamine-amphet amine XR (ADDERALL XR) 20 mg 24 hr capsule TAKE 1 CAPSULE BY MOUTH TWICE A DAY (SWALLOW WHOLE) Therapy completed 01/13/2024 09/02/2024 cariprazine (VRAYLAR) 1.5 mg capsule capsule Take 1 capsule (1.5 mg total) by mouth daily Therapy completed 07/29/2024 09/02/2024 documented as of this encounter Historical Medications * This list may reflect changes made after this encounter. Medication Sig Dispense Quantity Refills Last Filled Start D ate End Date mirtazapine (REMERON) 15 mg tablet 09/02/2024 added in this encounter Care Teams Remote Sensing Research Scientist Relationship Specialty Start Date End Date Rita Sykes PA [address] [address] PCP - General Internal Medicine 04/05/21 documented as of this encounter
--- OUTSIDE RECORDS SUMMARY | 2024-11-20 17:04 | XMS_ITS | Referral Summary ---
Author Organization [facility] [address] [facility] Address [address] [place] [address] Care Team Providers Care Foreign Languages Professor Name Role Phone Rita Sykes Primary Care Provider [phone]- [phone] Encounters Date Type Department Care Team Description 11/18/2024 3:30 PM TERRITORY SALES MANAGER Office Visit [facility] Internal Medicine at [place] [address] [facility] [address] [place] [address] Genie De Anda NP Fever blister (Primary Dx); BMI 25.0-25.9,adult 11/15/2024 Telephone [facility] Family Medicine [address] [facility] [address] [place] [address] Rita Sykes PA 10/25/2024 Telephone [facility] Gastroenterology [address] [facility] Medical Office Building [address] [place] [address] Betsy Rodriguez, SLEEVE FIXER Outstanding Labs 10/03/2024 Telephone [facility] Gastroenterology [address] [facility] Advanced Medicine 12th [place] [address] [place] [address] Betsy Rodriguez, SLEEVE FIXER outstanding labs 09/08/2024 Documentation [facility] Gastroenterology [address] [facility] Advanced Medicine 12th [place] [address] [place] [address] ReBetsy castellano, SLEEVE FIXER Outstanding Labs/ARM 09/02/2024 9:30 AM CDT Procedure visit [facility] Obstetrical Gynecology [address] [facility] [address] [place] [id number] Ly Gonsalez MD Nexplanon removal (Primary Dx) 09/01/2024 9:25 AM CDT Ancillary Procedure [facility] Imaging at [address] [address] Cough, unspecified type 09/01/2024 9:15 AM CDT Office Visit [facility] Convenient Care at [address] [address] Berna Lewis NP Viral URI with cough (Primary Dx) 09/01/2024 Nurse Triage [facility] Family Medicine [address] [facility] [address] [place] [address] Rita Sykes PA 08/25/2024 Telephone [facility] Obstetrical Gynecology [facility] [address] [place] [address] Ly Gonsalez MD from Last 3 Months Allergies Active Allergy Reactions Criticality Noted Date Comments Aripiprazole Nausea only Low 12/08/2022 Medications clonazePAM (KlonoPIN) 0.5 mg tabletIndicati ons:Anxiety Take 1 tablet (0.5 mg total) by mouth 3 (three) times a day as needed for anxiety 90 tablet [address] (CYMBALTA) 60 mg capsule Take 1 capsule (60 mg total) by mouth daily 4 Active Additional Information Patient not taking.Reported on 11/18/2024 lisdexamfetami ne (VYVANSE) 30 mg capsule Take by mouth daily 4 Active Vraylar 3 mg capsule capsule TAKE 1 CAPSULE BY MOUTH EVERY DAY AT BEDTIME 4 Active mirtazapine (REMERON) 15 mg tablet 4 Active meloxicam (MOBIC) 7.5 mg tabletIndicati ons:Lumbar back pain Take 1 tablet (7.5 mg total) by mouth daily as needed for pain 90 tablet 4 Active Additional Information Patient not taking.Reported on 11/18/2024 dextroamphetam ine-amphetamin e (ADDERALL) 20 mg tablet 0 4 Active acyclovir (ZOVIRAX) 400 mg tabletIndicati ons:Fever blister Take 1 tablet (400 mg total) by mouth 5 (five) times a day for 5 days 25 tablet 4 11/23/19 25 Active benzonatate (TESSALON) 200 mg capsuleIndicat ions:Viral URI with cough Take 1 capsule (200 mg total) by mouth 3 (three) times a day as needed for cough 30 capsule 4 11/18/20 24 Discontin ued(Thera py completed ) Active Problems Problem Noted Date Diagnosed Date Bipolar 1 disorder, manic, moderate (CMS/HCC) Borderline personality disorder (CMS/HCC) 2023 Rectal bleeding 07/23/2024 Assessment & Plan (07/23/2024 9:49 PM CDT): Patient had experience with rectal bleeding. Discussed increasing fiber and water for regular cycling. She would like to see GI to consider colonoscopy more for peace of mind because she felt like it was quite a bit of bleeding with minimal amount of stool. Will place referral Acute cough 07/23/2024 Assessment & Plan (07/23/2024 9:49 PM CDT): Patient with acute cough and congestion. COVID and flu were negative. And encouraged symptomatic treatment available [id number]. Symptoms worsen or do not resolve or she begins to notice increased shortness of breath she is to follow up immediately for assistance. She is in agreement with the plan Lumbar back pain 05/16/2024 Assessment & Plan (05/16/2024 11:31 PM CDT): Check xrays. Encouraged NSAIDS (if able to safely tolerate) or Tylenol. Toradol 60mg IM given in the office today. Start Mobic in the AM. Cyclobenzaprine prn hs -- caution due to sedation. Topical preparations like Lidocaine patches, Biofreeze, ICYHOT etc as needed. Heat/ICE, stretching Avoid long periods of sitting/laying. Encouraged PT and order provided Followup if has any problems controlling bowels or bladder or if sxs worsen. Duplicated right renal collecting system 024 Assessment & Plan (01/08/2024 9:13 AM TERRITORY SALES MANAGER): 2010 -- Dr Dale in [place] Right dismembered pyleoplasty Flank pain 01/08/2024 Assessment & Plan (01/10/2024 11:14 PM TERRITORY SALES MANAGER): Patient was treated for UTI last week. Feels as though the bladder symptoms are improving but still having right flank pain. No hematuria. Unsure if she is having any chills or sweats. She just does not feel quite herself. Admits to being under a lot of stress. Check urine culture as this was not done prior to treating with the antibiotic. Check a KUB and stat labs CBC and see MP. Follow-up pending the results Addendum. Labs were normal. KUB also did not show stones or other significant abnormality other than the duplicated system. Cipro was sent home with the patient to have on board. If her symptoms would increase start noticing documented fever chills or sweats she is to start immediately otherwise continue to monitor. If symptoms persist will need to consider CT abdomen and pelvis with renal stone protocol. Lipid screening 11/30/2023 Assessment & Plan (12/06/2023 2:23 PM TERRITORY SALES MANAGER): Check labs Diabetes mellitus screening 11/30/2023 Assessment & Plan (01/10/2024 11:12 PM TERRITORY SALES MANAGER): Check labs Assessment & Plan (12/06/2023 2:23 PM TERRITORY SALES MANAGER): Check labs Fatigue 11/30/2023 Assessment & Plan (01/10/2024 11:12 PM TERRITORY SALES MANAGER): Probably multifactorial. Check labs and followup to re-evaluate Assessment & Plan (12/06/2023 2:24 PM TERRITORY SALES MANAGER): Probably multifactorial. Check labs and followup to re-evaluate I also suspect this has to do with her dietary intake. She does not get enough water and she has also not getting enough protein on a regular basis. Strongly encouraged her to make these dietary changes and will see if this helps. Will also await lab results. Positive depression screening 11/30/2023 Assessment & Plan (12/06/2023 2:24 PM TERRITORY SALES MANAGER): Continue per Psychiatry History of COVID-19 11/30/2023 Assessment & Plan (12/06/2023 2:24 PM TERRITORY SALES MANAGER): Recent history of COVID. She is feeling much better. Insomnia 06/12/2023 Assessment & Plan (06/12/2023 4:08 PM CDT): Patient has been following with psychiatrist up near [place]. She is no longer able to see her. Trying to establish with a local psychiatrist but needs assistance with medications as she has been off her medications for a couple of days now. Tried sending the Klonopin to [facility] but this is not preferred by her insurance so need to have medicines sent to the local [facility]. Will send Klonopin trazodone in the Adderall. Reminded patient that I do not usually refill these so I do want her to get in with a psychiatrist to manage her psychiatric concerns. She is in agreement with the plan Attention deficit hyperactiv ity disorder (ADHD), predominantly inattentive type 05/17/2022 Overview (12/06/2023): Managed by MAXINE Lopez in [place], [place] via telemedicine 2022-- transferred to Dr. Marielle Pickett Assessment & Plan (12/06/2023 2:23 PM TERRITORY SALES MANAGER): Managed by Dr. Pickett - Psychiatry Continue Adderall and Klonopin. She feels like her anxiety is really out of control and is going to work with Dr. Pickett to adjust medications. Assessment & Plan (06/12/2023 4:06 PM CDT): Patient has been following with psychiatrist up near [place]. She is no longer able to see her. Trying to establish with a local psychiatrist but needs assistance with medications as she has been off her medications for a couple of days now. Tried sending the Klonopin to [facility] but this is not preferred by her insurance so need to have medicines sent to the local [facility]. Will send Klonopin trazodone in the Adderall. Reminded patient that I do not usually refill these so I do want her to get in with a psychiatrist to manage her psychiatric concerns. She is in agreement with the plan Anxiety 05/17/2022 Assessment & Plan (12/06/2023 2:23 PM TERRITORY SALES MANAGER): Managed by Dr. Pickett - Psychiatry Continue Adderall and Klonopin. She feels like her anxiety is really out of control and is going to work with Dr. Pickett to adjust medications. Assessment & Plan (06/12/2023 4:08 PM CDT): Patient has been following with psychiatrist up near [place]. She is no longer able to see her. Trying to establish with a local psychiatrist but needs assistance with medications as she has been off her medications for a couple of days now. Tried sending the Klonopin to [facility] but this is not preferred by her insurance so need to have medicines sent [facility] the local [facility]. Will send Klonopin trazodone in the Adderall. Reminded patient that I do not usually refill these so I do want her to get in with a psychiatrist to manage her psychiatric concerns. She is in agreement with the plan BMI 25.0-25.9,adult 01/02/2022 Assessment & Plan (07/23/2024 9:48 PM CDT): Weight/BMI is in healthy range. Continue healthy lifestyle to maintain. Assessment & Plan (05/16/2024 11:30 PM CDT): Weight/BMI is in healthy range. Continue healthy lifestyle to maintain. Assessment & Plan (01/02/2022 1:47 PM TERRITORY SALES MANAGER): Weight/BMI is in healthy range. Continue healthy lifestyle to maintain. Skin lesion 05/18/2021 Assessment & Plan (01/04/2022 2:24 PM TERRITORY SALES MANAGER): [facility] She will reach out to set her own appointment. Assessment & Plan (05/18/2021 12:20 AM CDT): Patient requests referral to derm for full skin evaluation. Bipolar I disorder, most recent episode hypomani c ([facility]) 10/26/2018 Bipolar disorder in remission ([facility]) 09/11/20 18 Generalized anxiety disorder 09/11/2018 Acute medial meniscal tear, right, initial encou nter 04/02/2018 Tear of lateral meniscus of knee 09/22/2016 ACL tear 09/16/2016 Complete tear of right ACL 09/08/2016 Complex tear of medial meniscus as current injur y 09/08/2016 Alcohol abuse, episodic 07/08/2015 Bipolar 1 disorder, manic, full remission ([facility]) 01/05/2015 PTSD (post-traumatic stress disorder) 12/07/2014 Hematuria 10/31/2014 Ganglion cyst of wrist 12/29/2011 Ureteropelvic junction obstruct, 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 (09/01/2024): 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 Continue healthy lifestyle to maintain. Assessment & Plan (12/06/2023 2:23 PM TERRITORY SALES MANAGER): Weight/BMI is in healthy range. Continue healthy lifestyle to maintain. Assessment & Plan (06/12/2023 10:06 AM CDT): Weight/BMI is in healthy range. Continue healthy lifestyle to maintain. Acute non-recurrent frontal sinusitis 08/31/2022 06/12/2023 Assessment & Plan (08/31/2022 8:23 PM CDT): Start antibiotic, antihistamine (Claritin OR Zyrtec), Mucinex 12hour and Steroid nasal spray (Flonase). Push fluids. Rest. Supportive care. If sxs worsen or don\'t improve, pt is to followup in the office. Diabetes mellitus screening 01/04/2022 05/17/2022 Assessment & Plan (01/04/2022 2:24 PM TERRITORY SALES MANAGER): Check labs Lipid screening 01/04/2022 05/17/2022 Assessment & Plan (01/04/2022 2:24 PM TERRITORY SALES MANAGER): Check labs Fatigue 01/04/2022 05/17/2022 Assessment & Plan (01/04/2022 2:24 PM TERRITORY SALES MANAGER): Probably multifactorial. Check labs and followup to re-evaluate Bacterial conjunctivitis of left eye 05/22/2021 05/17/2022 Assessment & Plan (01/04/2022 2:24 PM TERRITORY SALES MANAGER): Her symptoms seem most consistent with a bacterial infection in the eye. Reviewed transmission. Make sure to wipe away goopy discharge in the morning with a throw a towel and then wash hands thoroughly. Throw away any makeup that she is used in the past few weeks and use drops as instructed. If symptoms worsen to improve her she has vision changes she is to follow up immediately. Assessment & Plan (05/22/2021 7:51 PM CDT): Discussed conjunctivitis. Will send out antibiotic eyedrops. Encouraged her to keep the area clean using a washcloth or paper towel that she can throw away after wiping the area. Keep hands washed to try to avoid cross contamination and passing onto her child. If she starts to have increased pain, visual changes or any other problems she is to contact us immediately. She has a new patient appointment to establish care in the next week so will follow-up at that time Annual physical exam 05/18/2021 024 Assessment & Plan (06/12/2023 4:05 PM CDT): Encouraged healthy lifestyle, good nutrition and exercise. Encouraged Calcium and Vitamin D and weight bearing exercise for bone health. Reviewed immunizations Reviewed age appropirate screenings. Assessment & Plan (05/18/2021 12:21 AM CDT): Encouraged healthy lifestyle, good nutrition and exercise. Encouraged Calcium and Vitamin D and weight bearing exercise for bone health. Reviewed immunizations Reviewed age appropirate screenings. Stress 05/18/2021 06/12/2023 Assessment & Plan (05/18/2021 12:19 AM CDT): Pt has a lot of stress with school and new baby but Declines medication at this point. Encouraged good sleep hygeine, good nutrition and exercise. Will continue to monitor closely. Currently no suicidal or homicidal thoughts. Consider counseling. Reassess at next visit. Reviewed she may call at any time if desires medication or needs assistance. BMI 28.0-28.9,adult 05/16/2021 01/02/20 22 Assessment & Plan (05/22/2021 7:51 PM CDT): Weight/BMI is in healthy range. Continue healthy lifestyle to maintain. Assessment & Plan (05/16/2021 2:24 PM CDT): Weight/BMI is in healthy range. Continue healthy lifestyle to maintain. BMI 28.0-28.9,adult 05/09/2021 05/16/20 21 Assessment & Plan (05/09/2021 3:27 PM CDT): Weight/BMI is in healthy range. Continue healthy lifestyle to maintain. Immunizations Name Administration Dates Next Due Influenza, Quadrivalent, Sandra l Culture-based MDCK, Preservative Free, Antibiotic Free, Intramuscular 11/11/2018 Influenza, Quadrivalent, Spl it, Preservative Free, Intramuscular 01/14/2021 Influenza, Trivalent, IM (MDV) 08/08/2016 Influenza, Trivalent, Preser vative Free, Intramuscular 11/05/2015 Influenza, Unspecified 11/18/2024(Deferr ed: Patient Refused),11/30/2023(Deferred: Patient decision),11/23/2023(Deferred: Patient Refused),12/24/2022(Deferred: Patient Refused),12/24/2021(Deferred: Patient Refused),11/23/2021 Meningococcal MCV4P (Menactra) 07/07/2008 PPD TEST 06/25/2015 Pfizer SARS-CoV-2 Monovalent Vaccination (12+ Yrs) PURPLE 02/22/2021,02/01/2021 Tdap 11/11/2015,06/07/2015 Social History Tobacco Use Types Packs/Day Years Used Date Smoking Tobacco: Never Smokeless Tobacco: Never Tobacco Cessation:Counseling Given: Not Answered AUDIT-C Answer Date Recorded Q1: How often do you have a drink containing alcohol? Never 08/12/2024 Q2: How many drinks containi ng alcohol do you have on a typical day when you are drinking? Patient does not drink Q3: How often do you have si x or more drinks on one occasion? Never 08/12/2024 PHQ-2 Answer Date Recorded PHQ-2 Total Score (If total score is 3 or more points, staff should administer the PHQ-9) 0 11/18/2024 Comments No Sex and Gender Information Value Date Recorded Sex Assigned at Not on file Legal Sex Female 9:13 AM CDT Gender Identity Not on file Sexual Orientation Not on file Last Filed Vital Signs Vital Sign Reading Time Taken Comments Blood Pressure 100/64 11/18/2024 3:34 PM TERRITORY SALES MANAGER Pulse 76 11/18/2024 3:34 PM TERRITORY SALES MANAGER Temperature 37.1 ??C (98.8 ??F) 11/18/2024 3:34 PM CS T Respiratory Rate 18 09/01/2024 9:09 AM CDT Oxygen Saturation 99% 11/18/2024 3:34 PM TERRITORY SALES MANAGER Inhaled Oxygen Concentration - - Weight 76.2 kg (168 lb) 11/18/2024 3:34 PM TERRITORY SALES MANAGER Height 172.7 cm (5' 8 ) 11/18/2024 3:34 PM TERRITORY SALES MANAGER Body Mass Index 25.54 11/18/2024 3:34 PM TERRITORY SALES MANAGER Plan of Treatment Not on file Procedures Procedure Name Priority Date/Time Associated Diagnosis Comments XR CHEST PA LATERAL 2 VIEWS Schedule RAJESH, Read RAJESH (Appt Today, Awaiting Results) 09/01/2024 9:32 AM CDT Cough, unspecified type POC INFLUENZA A/B, COVID-19 ANTIGEN Routine 09/01/2024 9:05 AM CDT Viral URI with cough HIGH RISK HPV DNA DETECTION WITH GENOTYPING Routine 01/29/2024 3:14 PM TERRITORY SALES MANAGER Well woman exam from Last 3 Months or Most Recently Relevant to Health Maintenance Results * XR Chest PA Lateral 2 [...] D: ??09/01/2024 9:48 AM T: Report ID: [id number] Reading Location: ??[id number] Procedure Note Raffi Santos MD - 09/01/2024 [...] Raffi Santos M.D. AG T: Report ID: [id number] Reading Location: [id number] us Berna Lewis MACHINE FANCY STITCHER IMG XR PROCEDURES Final Result * POC Influenza A/B, COVID-19 antigen (09/01/2024 9:05 AM CDT) Pathologist [facility] Influenza A Ag, POC Negative Negative [facility] Influenza B Ag, POC Negative Negative [facility] COVID-19 Ag POC Presumptive Negative Presumptive Negative, Invalid [facility] Nasal 09/01/2024 9:05 AM CDT us Berna Lewis NP POINT OF CARE TEST ORDERABLES Final Result Performing Organization Address City/State/[facility] Co de Phone Number [facility] [address] [place] [address] * High Risk HPV DNA Detection with Genotyping (Molecular component) (01/29/2024 3:14 PM TERRITORY SALES MANAGER) Pathologist [facility] HPV HR 16 Not Detected Not Detected [facility] Comment:Testing performed by : [facility], [address] [place]., [address] HPV HR 18 Not Detected Not Detected [facility] Comment:Testing performed by : [facility], [address] [facility] [place]., [address] HPV HR Non 16/18 Not Detected Not Detected [facility] Comment: Interpretive Data Nucleic acid amplification for detection of high-risk Human Papilloma virus (HPV) is performed by the Azael Amy 6800 HPV test. ??This assay specifically detects HPV-16 and HPV-18 genotypes. ??The following HPV genotypes are detected as high-risk HPV: ?? HPV-31, 33, 35, ,39, 45, 51, 52, 56, 58, 59, 66, and 68. ??This assay has been approved by the [place] Food and Drug Administration for detection of HPV in cervical specimens collected by a physician using an endocervical brush/spatula or cervical broom and placed in the ThinPrep Pap Test PreservCyt collection containers. ??The performance characteristics of this test have been verified by the [facility] Molecular Infectious Disease laboratory. Correlate with separately reported cytology results, as applicable. Interpretive data last revised 23 Testing performed by: [facility], [address] [facility] [place]., [address] Endocervical 01/29/2024 3:14 PM TERRITORY SALES MANAGER 02/02/2024 9:38 AM CDT Narrative [facility] - 02/03/2024 4:46 AM CDT Clinical history and diagnosis->screening Testing type->Screening Last menstrual period (date if known)->iud Ly Gonsalez MD LAB BODY FLUIDS AND STOOL S ORDERABLES Final Result [facility] [address] [facility] Department [place] [address] [facility] from Last 3 Months or Most Recently Relevant to Health Maintenance Insurance [employer] Address: [address] [place] [address] [employer] Address: [address] [place] [address] Care Teams Foreign Languages Professor Relationship Specialty Start Date End Date Rita Sykes PA [address] [place] [address] PCP - General Internal Medicine 04/05/21
--- OUTSIDE RECORDS SUMMARY | 2024-11-20 17:04 | XMS_ITS | Encounter Summary ---
Author Organization [facility] Address [address] [place] [address] Phone Care Team Providers Care Sheet Metal Pattern Cutter Name Role Phone Rita Sykes Primary Care Provider [phone]- [phone] Reason for Visit * Reason Onset Date Comments Outstanding Labs/ARM 09/08/2024 Encounter Details Date Type Department Care Team (Late st Contact Info) Description 09/08/2024 Documentation [facility] Gastroenterology [address] [facility] 12th [place] [address] [place] [address] Betsy Rodriguez LPN Outstanding Labs/ARM Social History Tobacco Use Types Packs/Day Years [...] of this encounter Progress Notes * Betsy Rodriguez LPN - 09/08/2024 11:06 AM CDT LVM and My Charted pt x 2 following up on outstanding labs and ARM that needs to be scheduled. Will await message from pt. documented in this encounter Plan of Treatment Not on file documented as of this encounter Visit Diagnoses Not on filedocumented in this encounter Care Teams Sheet Metal Pattern Cutter Relationship Specialty Start Date End Date Rita Sykes PA [address] [address] PCP - General Internal Medicine 04/05/21 documented as of this encounter
--- OUTSIDE RECORDS SUMMARY | 2024-11-20 17:04 | XMS_ITS | Encounter Summary ---
Author Organization [facility] Healthcare Address [address] [place] [address] Care Team Providers Care Head Esthetician Name Role Phone Rita Sykes Primary Care Provider +1- [phone] Reason for Referral * Consultation (Routine) - Authorized Specialty Diagnoses / Procedures Referred By Barber t Referred To Contact Gastroenterology Diagnoses Rectal bleeding Rita Sykes PA [address] [place] [address] Phone: tel: fax: [facility] (All Locations) Referral ID Status Reason Start Date Expiration Date Visits Requested Visits Authorized [id number] Authorized Specialty Services Required 07/12/2024 08/11/2025 12 12 Question Answer Please select the performing region: [facility] (All Locations) [[id number]] To provider: NISH BARNES [[id number]] # of visits: 1 Comments Rectal bleeding/blood in stool Reason for Visit * Reason Comments Follow-up Pt would like to dis cuss colonoscopy. She has had a sore throat, body ache, nausea x1wk, had fatigue, x0wks Encounter Details Date Type Department Care Team (Late st Contact Info) Description 07/12/2024 1:00 PM CDT Office Visit [facility] Family Medicine [address] [place] [id number] Rita Sykes PA [address] [facility] [address] [place] [address] Acute cough (Primary Dx); Rectal bleeding; BMI 25.0-25.9,adult Social History Tobacco Use Types Packs/Day Years [...] Reading Time Taken Comments Blood Pressure 120/70 07/12/2024 1:08 PM CDT Pulse 66 07/12/2024 1:08 PM CDT Temperature 36.4 ??C (97.6 ??F) 07/12/2024 1:08 PM CD T Respiratory Rate - - Oxygen Saturation 99% 07/12/2024 1:08 PM CDT Inhaled Oxygen Concentration - - Weight - - Height - - Body Mass Index - - documented in this encounter Progress Notes * Rita Sykes PA - 07/12/2024 1:00 PM CDT Images from the original note were not included. Subjective/Objective Patient ID: Erika Childs is a 33 y.o. female. Chief Complaint Follow-up (Pt would like to discuss colonoscopy. She has had a sore throat, body ache, nausea x1wk,had fatigue, x0wks) HPI Patient presents to followup chronic concerns. Rectal bleeding -- minimal sttol when it happened. No pain. No history of hemoarrhoids. Was seen in ER. None since.Azaleat wants to see GI for colonoscopy for peace of mind Patient has also had a ongoing cough. She has had a sore throat, body aches and nuasea and fatigue for the last few weeks. Using otc. Hasn't tested COVID or FLU Review of Systems See HPI Vitals: 07/12/24 1308 BP: 120/70 BP Location: Left arm Patient Position: Sitting Pulse: 66 Temp: 36.4 ??C (97.6 ??F) TempSrc: Temporal SpO2: 99% Physical Exam Vitals and nursing note reviewed. Constitutional: Appearance: She is well-developed. HENT: Head: Normocephalic and atraumatic. Eyes: Comments: Pupils are equal Cardiovascular: Rate and Rhythm: Normal rate and regular rhythm. Heart sounds: No murmur heard. Pulmonary: Effort: Pulmonary effort is normal. Breath sounds: Normal breath sounds. Abdominal: Palpations: Abdomen is soft. Tenderness: There is no abdominal tenderness. Skin: General: Skin is warm and dry. Findings: No rash. Neurological: Mental Status: She is alert and oriented to person, place, and time. Assessment/Plan Diagnoses and all orders for this visit: Acute cough (R05.1) (Primary) Assessment & Plan: Patient with acute cough and congestion. COVID and flu were negative. And encouraged symptomatic treatment available [id number]. Symptoms worsen or do not resolve or she begins to notice increased shortness of breath she is to follow up immediately for assistance. She is in agreement with the plan Orders: - POCT rapid strep A - POC Influenza A/B, COVID-19 antigen Rectal bleeding (K62.5) Assessment & Plan: Patient had experience with rectal bleeding. Discussed increasing fiber and water for regular cycling. She would like to see GI to consider colonoscopy more for peace of mind because she felt like itwas quite a bit of bleeding with minimal amount of stool. Will place referral Orders: - Ambulatory referral to Gastroenterology; Future BMI 25.0-25.9,adult (Z68.25) Assessment & Plan: Weight/BMI is in healthy range. Continue healthy lifestyle to maintain. *This note is dictated using [employer] voice recognition software, variances in spelling and vocabulary are possible and unintentional.* Rita Sykes PA-C documented in this encounter Miscellaneous Notes * Assessment & Plan Note - Rita Sykes PA - 07/23/2024 9:49 PM CDT Associated Problem(s): Acute cough Patient with acute cough and congestion. COVID and flu were negative. And encouraged symptomatic treatment available [id number]. Symptoms worsen or do not resolve or she begins to notice increased shortness of breath she is to follow up immediately for assistance. She is in agreement with the plan * Assessment & Plan Note - Rita Sykes PA - 07/23/2024 9:49 PM CDT Associated Problem(s): Rectal bleeding Patient had experience with rectal bleeding. Discussed increasing fiber and water for regular cycling. She would like to see GI to consider colonoscopy more for peace of mind because she felt like itwas quite a bit of bleeding with minimal amount of stool. Will place referral * Assessment & Plan Note - Rita Sykes PA - 07/23/2024 9:48 PM CDT Associated Problem(s): BMI 25.0-25.9,adult Weight/BMI is in healthy range. Continue healthy lifestyle to maintain. documented in this encounter Plan of Treatment Scheduled Referrals Name Type Priority Associated Diagnoses Order Schedule Ambulatory referral to Gastroenterology Outpatient Referral Routine Rectal bleeding Expected: 07/26/2024 (Approximate), Expires: 07/12/2025 documented as of this encounter Procedures Procedure Name Priority Date/Time Associated Diagnosis Comments POC INFLUENZA A/B, COVID-19 ANTIGEN Routine 07/12/2024 1:18 PM CDT Acute cough POCT RAPID STREP Routine 07/12/2024 1:17 PM CDT Acute cough documented in this encounter Results * POC Influenza A/B, COVID-19 antigen (07/12/2024 1:18 PM CDT) Influenza A Ag, POC Negative Negative [facility] Influenza B Ag, POC Negative Negative [facility] COVID-19 Ag POC Presumptive Negative Presumptive Negative, Invalid [facility] Nasal 07/12/2024 1:18 PM CDT Rita GONZÁLES POINT OF CARE TEST ORDERAB LES Final Result [facility] [address] [place] [address] * POCT rapid strep A (07/12/2024 1:17 PM CDT) Pathologist [facility] Rapid Strep A, POC Negative Negative Swab 07/12/2024 1:17 PM CDT Rita GONZÁLES POINT OF CARE TEST ORDERAB LES Final Result documented in this encounter Visit Diagnoses Diagnosis Acute cough- Primary Rectal bleeding Hemorrhage of rectum and anus BMI 25.0-25.9,adult documented in this encounter Additional Health Concerns Infection Onset Date Last Indicated Resolved Time COVID: Suspected 07/12/2024 07/12/2024 07/12/2024 1:19 PM CDT documented as of this encounter Care Teams Head Esthetician Relationship Specialty Start Date End Date Rita Sykes PA [address] [place] [address] PCP - General Internal Medicine 04/05/21 documented as of this encounter
--- OUTSIDE RECORDS SUMMARY | 2024-11-20 17:04 | XMS_ITS | Encounter Summary ---
Author Organization [facility] Healthcare Address [address] [place] [address] Care Team Providers Care Ict Systems Test Engineer Name Role Phone Rita Sykes Primary Care Provider +1- [phone] Reason for Visit * Reason Onset Date Comments Recommendation Request 06/27/2024 Encounter Details Date Type Department Care Team (Late st Contact Info) Description 06/27/2024 Telephone [facility] Medical Group Family Medicine [address] [place] [address] Rita Sykes PA [address] [place] [address] Recommendation Request Social History Tobacco Use Types Packs/Day Years Used Date Smoking Tobacco: Never Smokeless Tobacco: Never AUDIT-C Answer Date Recorded Q1: How often do you have a drink containing alc ohol? Never 01/08/2024 Q2: How many drinks containi ng alcohol do you have on a typical day when you are drinking? 1 or 2 01/08/2024 Q3: How often do you have six or more drinks on one occasion? Never 01/08/2024 PHQ-2 Answer Date Recorded PHQ-2 Total Score 0 05/16/2024 Comments No Sex and Gender Information Value Date Recorded Sex Assigned at Not on file Legal Sex Female 9:13 AM CDT Gender Identity Not on file Sexual Orientation Not on file documented as of this encounter Miscellaneous Notes * Telephone Encounter - Latrice Jean MA - 06/28/2024 2:32 PM CDT Scheduled patient to be seen 07/12/24 * Telephone Encounter - Rita Sykes PA - 06/28/2024 2:06 PM CDT Let patient know I was able to review her ER notes and the CT done in the ER. I would be glad to make a referral to GI but I suspect she may have a 2-6 month wait to get into one. Please set her an appointment with me so we can discuss options. * Telephone Encounter - Latrice Jean MA - 06/28/2024 12:52 PM CDT Do you want a referral put in for this patient? * Telephone Encounter - Yadi Berrios MA - 06/28/2024 12:20 PM CDT Recommendation Request Note: This request is for a specialty recommendation, not an insurance referral. Specialty: GI Why does the patient want to go to this specialist? Advised to have colonoscopy while in ER Additional Comments/Concerns: was seen at [facility] on 06/25/24 for blood in stool, and rectal bleeding She is requesting a call once complete Does message need to be routed? Yes-Action Needed * Telephone Encounter - Barbara Cardoso - 06/27/2024 3:26 PM CDT Pt was seen at [facility] on 06/25/24 for: Blood in Stool See Attached Notes Staff will call to follow up with pt documented in this encounter Plan of Treatment Not on file documented as of this encounter Visit Diagnoses Not on filedocumented in this encounter Care Teams Ict Systems Test Engineer Relationship Specialty Start Date End Date Rita Sykes PA [address] [address] PCP - General Internal Medicine 04/05/21 documented as of this encounter
--- OUTSIDE RECORDS SUMMARY | 2024-11-20 17:04 | XMS_ITS | Encounter Summary ---
Author Organization [facility] Healthcare Address [address] [place] [address] Care Team Providers Care Communications Coordinator Name Role Phone Rita Sykes Primary Care Provider +1- [phone] Encounter Details Date Type Department Care Team (Late st Contact Info) Description 08/25/2024 Telephone [facility] Medical Group Obstetrical Gynecology [address] [address] Ly Gonsalez MD [address] [address] Social History Tobacco Use Types Packs/Day Years [...] encounter Miscellaneous Notes * Telephone Encounter - Sherron Julien - 08/25/2024 10:58 AM CDT Last WWE:01/29/24 Next OV:10/14/24 Patient called to see if there is any way that she could be seen sooner (anytime) for her IUD removal because she and her really want to conceive. Please advise. Preferred Communication: documented in this encounter Plan of Treatment Not on file documented as of this encounter Visit Diagnoses Not on filedocumented in this encounter Additional Health Concerns Infection Onset Date Last Indicated Resolved Time COVID: Suspected 09/01/2024 09/01/2024 09/01/2024 9:25 AM CDT COVID: Suspected 09/01/2024 09/01/2024 09/01/2024 9:28 AM CDT documented as of this encounter Care Teams Communications Coordinator Relationship Specialty Start Date End Date Rita Sykes PA [address] [facility] [address] [place] [address] PCP - General Internal Medicine 04/05/21 documented as of this encounter
--- OUTSIDE RECORDS SUMMARY | 2024-11-20 17:04 | XMS_ITS | Encounter Summary ---
Author Organization [facility] Address [address] [place] [address] Phone Care Team Providers Care County Agricultural Agent Name Role Phone Rita Sykes Primary Care Provider +1- [phone] Reason for Visit * Reason Onset Date Comments Outstanding Labs 10/25/2024 Encounter Details Date Type Department Care Team (Late st Contact Info) Description 10/25/2024 Telephone [facility] Gastroenterology [address] [place] [address] [address] [place] [address] Betsy Rodriguez LPN Outstanding Labs Social History Tobacco Use Types Packs/Day Years [...] encounter Miscellaneous Notes * Telephone Encounter - Betsy Rodriguez LPN - 10/25/2024 10:10 AM CST LVM for pt about outstanding labs and the need to schedule an ARM, also sent second My Chart message to patient. Has follow up appt 11/02/24 OUT TOWER FIRE WATCHER documented in this encounter Plan of Treatment Not on file documented as of this encounter Visit Diagnoses Not on filedocumented in this encounter Care Teams [place] Agricultural Agent Relationship Specialty Start Date End Date Rita Sykes PA [address] [address] PCP - General Internal Medicine 04/05/21 documented as of this encounter
--- OUTSIDE RECORDS SUMMARY | 2024-11-20 17:04 | XMS_ITS | Clinical Summary ---
Author Organization [facility] [address] [facility] Address [address] [place] [address] Care Team Providers Care Comptometer Operator Name Role Phone Rita Sykes Primary Care Provider [phone] Allergies Active Allergy Reactions Criticality Noted Date [...] cough 30 capsule 4 11/18/20 24 Discontin ued(Carlos py completed ) Active Problems Problem Noted [...] were negative. And encouraged symptomatic treatment available [id number]. Symptoms worsen or do not resolve or [...] 024 Assessment & Plan (01/08/2024 9:13 AM SYSTEMS INTEGRATION ADVISOR): 2010 -- Dr Dale in [place] Right dismembered pyleoplasty Flank pain 01/08/2024 Assessment & Plan (01/10/2024 11:14 PM SYSTEMS INTEGRATION ADVISOR): Patient was treated for UTI last week. [...] 11/30/2023 Assessment & Plan (12/06/2023 2:23 PM SYSTEMS INTEGRATION ADVISOR): Check labs Diabetes mellitus screening 11/30/2023 Assessment & Plan (01/10/2024 11:12 PM SYSTEMS INTEGRATION ADVISOR): Check labs Assessment & Plan (12/06/2023 2:23 PM SYSTEMS INTEGRATION ADVISOR): Check labs Fatigue 11/30/2023 Assessment & Plan (01/10/2024 11:12 PM SYSTEMS INTEGRATION ADVISOR): Probably multifactorial. Check labs and followup to re-evaluate Assessment & Plan (12/06/2023 2:24 PM SYSTEMS INTEGRATION ADVISOR): Probably multifactorial. Check labs and followup to [...] 11/30/2023 Assessment & Plan (12/06/2023 2:24 PM SYSTEMS INTEGRATION ADVISOR): Continue per Psychiatry History of COVID-19 11/30/2023 Assessment & Plan (12/06/2023 2:24 PM SYSTEMS INTEGRATION ADVISOR): Recent history of COVID. She is feeling much better. Insomnia 06/12/2023 Assessment & Plan (06/12/2023 4:08 PM CDT): Patient has been following with psychiatrist up near [place]. She is no longer able to see her. Trying to establish with a local psychiatrist but needs assistance with medications as she has been off her medications for a couple of days now. Tried sending the Klonopin to [facility] but this is not preferred by her insurance so need to have medicines sent to the local [facility]. Will send Klonopin trazodone in the Adderall. Reminded patient that I do not usually refill these so I do want her to get in with a psychiatrist to manage her psychiatric concerns. She is in agreement with the plan Attention deficit hyperactiv ity disorder (ADHD), predominantly inattentive type 05/17/2022 Overview (12/06/2023): Managed by MAXINE Lopez in [place], [place] via telemedicine 2022-- transferred to Dr. Marielle Pickett Assessment & Plan (12/06/2023 2:23 PM SYSTEMS INTEGRATION ADVISOR): Managed by Dr. Pickett - Psychiatry Continue Adderall and Klonopin. She feels like her anxiety is really out of control and is going to work with Dr. Pickett to adjust medications. Assessment & Plan (06/12/2023 4:06 PM CDT): Patient has been following with psychiatrist up near [place]. She is no longer able to see her. Trying to establish with a local psychiatrist but needs assistance with medications as she has been off her medications for a couple of days now. Tried sending the Klonopin to [facility] but this is not preferred by her [...] 05/17/2022 Assessment & Plan (12/06/2023 2:23 PM SYSTEMS INTEGRATION ADVISOR): Managed by Dr. Pickett - Psychiatry Continue Adderall and Klonopin. She feels like her anxiety is really out of control and is going to work with Dr. Pickett to adjust medications. Assessment & Plan (06/12/2023 4:08 PM CDT): Patient has been following with psychiatrist up near [place]. She is no longer able to see her. Trying to establish with a local psychiatrist but needs assistance with medications as she has been off her medications for a couple of days now. Tried sending the Klonopin to [facility] but this is not preferred by her insurance so need to have medicines sent to the local [facility]. Will send Klonopin trazodone in the Adderall. [...] maintain. Assessment & Plan (01/02/2022 1:47 PM SYSTEMS INTEGRATION ADVISOR): Weight/BMI is in healthy range. Continue healthy lifestyle to maintain. Skin lesion 05/18/2021 Assessment & Plan (01/04/2022 2:24 PM SYSTEMS INTEGRATION ADVISOR): Referral made to [facility]. She will reach out to set her own appointment. Assessment & Plan (05/18/2021 12:20 AM CDT): Patient requests referral to derm for full skin evaluation. Bipolar I disorder, most recent episode hypomani c ([facility]) 10/26/2018 Bipolar disorder in remission (CMS/HCC) 09/11/20 18 Generalized anxiety disorder 09/11/2018 Acute medial meniscal tear, right, initial encou nter 04/02/2018 Tear of lateral meniscus of knee 09/22/2016 ACL tear 09/16/2016 Complete tear of right ACL 09/08/2016 Complex tear of medial meniscus as current injur y 09/08/2016 Alcohol abuse, episodic 07/08/2015 Bipolar 1 disorder, manic, full remission (CMS/ CC) 01/05/2015 PTSD (post-traumatic stress disorder) 12/07/2014 Hematuria 10/31/2014 Ganglion cyst of wrist 12/29/2011 Ureteropelvic junction obstruct, 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 (09/01/2024): 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 Continue healthy lifestyle to maintain. Assessment & Plan (12/06/2023 2:23 PM SYSTEMS INTEGRATION ADVISOR): Weight/BMI is in healthy range. Continue healthy [...] 05/17/2022 Assessment & Plan (01/04/2022 2:24 PM SYSTEMS INTEGRATION ADVISOR): Check labs Lipid screening 01/04/2022 05/17/2022 Assessment & Plan (01/04/2022 2:24 PM SYSTEMS INTEGRATION ADVISOR): Check labs Fatigue 01/04/2022 05/17/2022 Assessment & Plan (01/04/2022 2:24 PM SYSTEMS INTEGRATION ADVISOR): Probably multifactorial. Check labs and followup to re-evaluate Bacterial conjunctivitis of left eye 05/22/2021 05/17/2022 Assessment & Plan (01/04/2022 2:24 PM SYSTEMS INTEGRATION ADVISOR): Her symptoms seem most consistent with a [...] healthy range. Continue healthy lifestyle to maintain. Encounters Date Type Department Care Team Description 11/18/2024 3:30 PM SYSTEMS INTEGRATION ADVISOR Office Visit [facility] Internal Medicine at [address] [place] [address] Genie De Anda NP Fever blister (Primary Dx); BMI 25.0-25.9,adult 11/15/2024 Telephone [facility] Family Medicine [address] [place] [address] [address] [place] [address] Rita Sykes PA 10/25/2024 Telephone [facility] Gastroenter[facility] Medical Office Building [address] [place] [address] Betsy Rodriguez LPN Outstanding Labs 10/03/2024 Telephone [facility] Gastroenterology [address] [facility] Medicine [address]th [place] [address] [place] [address] Betsy Rodriguez LPN outstanding labs 09/08/2024 Documentation [facility] Gastroenterology [address] [facility] 12th [place] [address] [place] [address] Betsy Rodriguez LPN Outstanding [facility]/ARM 09/02/2024 9:30 AM CDT Procedure visit [facility] Obstetrical Gynecology [address] [facility] [address] [place] [address] Ly Gonsalez MD Nexplanon removal (Primary Dx) 09/01/2024 9:25 AM CDT Ancillary Procedure [facility] Imaging at [address] [address] Cough, unspecified type 09/01/2024 9:15 AM CDT Office Visit [facility] Convenient Care at [address] [address] Berna Lewis, MAXINE Viral URI with cough (Primary Dx) 09/01/2024 Nurse Triage [facility] Family Medicine [address] [facility] [address] [place] [address] Rita Sykes PA 08/25/2024 Telephone [facility] Obstetrical Gynecology [address] [place] [address] [place] [address] Ly Gonsalez MD from Last 3 Months Immunizations Name Administration Dates Next Due Influenza, [...] Vaccination (12+ Yrs) PURPLE 02/22/2021,02/01/2021 Tdap 11/11/2015,06/07/2015 Surgical History Surgery Date Site/Laterality Comments REFRACTIVE SURGERY 11/23/2016 - 11/22/2017 Bilateral PYELOPLASTY 11/23/2010 - 11/22/2011 Right APPENDECTOMY 11/23/2010 - 11/22/2011 Family History Medical History Relation Name Comments Anxiety disorder Father Depression Father Heart attack Father Hypertension Father Breast cancer Father's Sister Anxiety disorder Mother Depression Mother Colon cancer Neg Hx Ovarian cancer Neg Hx Uterine cancer Neg Hx Relation Name Status Comments Father Alive Father's Sister Alive Mother Alive Other paternal aunt Other breast cancer Social History Tobacco Use Types Packs/Day Years [...] on file Sexual Orientation Not on file Obstetrics History Para Term AB IAB SAB Ectopic Multiple Livin g Live Births 1 Date Outcome GA Total Labor Labor/2nd/3rd Weight Sex Type Anes PTL Danelle A1 A5 Name Clin Term Last Filed Vital Signs Vital Sign Reading Time Taken Comments Blood Pressure 100/64 11/18/2024 3:34 PM SYSTEMS INTEGRATION ADVISOR Pulse 76 11/18/2024 3:34 PM SYSTEMS INTEGRATION ADVISOR Temperature 37.1 ??C (98.8 ??F) 11/18/2024 3:34 PM CS T Respiratory Rate 18 09/01/2024 9:09 AM CDT Oxygen Saturation 99% 11/18/2024 3:34 PM SYSTEMS INTEGRATION ADVISOR Inhaled Oxygen Concentration - - Weight 76.2 kg (168 lb) 11/18/2024 3:34 PM SYSTEMS INTEGRATION ADVISOR Height 172.7 cm (5' 8 ) 11/18/2024 3:34 PM SYSTEMS INTEGRATION ADVISOR Body Mass Index 25.54 11/18/2024 3:34 PM SYSTEMS INTEGRATION ADVISOR Plan of Treatment Health Maintenance Due Date Last Done Comments Hepatitis C Screening 1991 Varicella Vaccines (1 of 2 - 13+ 2-dose series) 2004 Hepatitis B Screening 2009 Covid-19 Vaccine ( season) 2024 10/26/2021, 02/22/2021, 02/01/2021 Cervical Cancer Screening 01/28/2025 01/29/2024, 06/2024 Regular Well Visit/Exam 18-64 01/28/2025 01/29/2024, 06/12/2023, 05/16/2021 Influenza Vaccine (#1) 2025 , 01/14/2021, 11/11/2018, Additional history exists Postponed from 07/24/2024 (Patient declined, but will receive in the future) DTaP/Tdap/Td Vaccine (3 - Td or Tdap) 11/11/2025 11/11/2015, 06/07/2015 Depression Screening 11/18/2025 11/18/2024, 07/12/2024, 07/12/2024, Additional history exists HPV Vaccines Aged Out No longer eligi ble based on patient's age to complete this topic Pneumococcal vaccine <65 Aged Out No longer eligible based on patient's age to complete this topic Procedures Procedure Name Priority Date/Time Associated Diagnosis Comments XR CHEST PA LATERAL 2 VIEWS Schedule RAJESH, Read RAJESH (Appt Today, Awaiting Results) 09/01/2024 9:32 AM CDT Cough, unspecified type POC INFLUENZA A/B, COVID-19 ANTIGEN Routine 09/01/2024 9:05 AM CDT Viral URI with cough HIGH RISK HPV DNA DETECTION WITH GENOTYPING Routine 01/29/2024 3:14 PM SYSTEMS INTEGRATION ADVISOR Well woman exam from Last 3 Months [...] D: ??09/01/2024 9:48 AM T: Report ID: [id number] Reading Location: ??[id number] Procedure Note Raffi Santos MD - 09/01/2024 [...] Raffi Santos M.D. AG T: Report ID: [id number] Reading Location: [place] [address] us Berna Lewis MANUFACTURING OPERATOR IMG XR PROCEDURES Final Result * POC Influenza A/B, COVID-19 antigen (09/01/2024 9:05 AM CDT) Pathologist [facility] Influenza A Ag, POC Negative Negative [facility] Influenza B Ag, POC Negative Negative [facility] COVID-19 Ag POC Presumptive Negative Presumptive Negative, Invalid [facility] Nasal 09/01/2024 9:05 AM CDT us Berna Lewis NP POINT OF CARE TEST ORDERABLES Final Result Performing Organization Address City/State/[facility] Co de Phone Number [facility] [address] [place] [address] * High Risk HPV DNA Detection with Genotyping (Molecular component) (01/29/2024 3:14 PM SYSTEMS INTEGRATION ADVISOR) [facility] HPV HR 16 Not Detected Not Detected [facility] Comment:Testing performed by : [facility], [address] [place]., [address] HPV HR 18 Not Detected Not Detected [facility] Comment:Testing performed by : [facility], [address] [place]., [address] HPV HR Non 16/18 Not Detected Not [...] this test have been verified by the [facility] Molecular Infectious Disease laboratory. Correlate with separately reported cytology results, as applicable. Interpretive data last revised 23 Testing performed by: [facility], [address] [place]., [address] Endocervical 01/29/2024 3:14 PM SYSTEMS INTEGRATION ADVISOR 02/02/2024 9:38 AM CDT Narrative [facility] - 02/03/2024 4:46 AM CDT Clinical history and diagnosis->screening Testing type->Screening Last menstrual period (date if known)->iud Ly Gonsalez MD LAB BODY FLUIDS AND STOOL S ORDERABLES Final Result [facility] [address] [facility] [place] [address] [facility] from Last 3 Months or Most Recently Relevant to Health Maintenance Insurance [employer] OOS Member Subscriber Plan / Payer (Ef fective 2021-Present) Name:Erika Childs Relation to Subscriber:Self Name:Erika Childs Payer ID:[id number] (NAIC) Type: SONA Address: [facility] [id number] [place] [id number] [employer] O[employer] Care Teams Comptometer Operator Relationship Specialty Start Date End Date Rita Sykes PA [address] [place] [address] PCP - General Internal Medicine 04/05/21
--- OUTSIDE RECORDS SUMMARY | 2024-11-20 17:04 | XMS_ITS | Encounter Summary ---
Author Organization [facility] Address [address] [place] [address] Phone Care Team Providers Care Emergency Management System Director Name Role Phone Rita Sykes Primary Care Provider +1- [phone] Reason for Referral * (Routine) - Pending Review Specialty Diagnoses / Procedures Referred By Contac t Referred To Contact Diagnoses Rectal bleeding Altered bowel habits Procedures High Resolution Anorectal Motility (Rectal Sensation/Tone) with Balloon Expulsion - Nathaly Cameron PA [address] [place] [address] Phone: tel: fax: [facility] (All Locations) Referral ID Status Reason Start Date Expiration Date V isits Requested Visits Authorized [id number] Pending Review 08/05/2024 09/04/2025 1 1 Reason for Visit * Consultation (Routine) - Authorized Specialty Diagnoses / Procedures Referred By Contac t Referred To Contact Gastroenterology Diagnoses Rectal bleeding Rita Sykes PA [address] [place] [address] Phone: tel: fax: [facility] (All Locations) Referral ID Status Reason Start Date Expiration Date Visits Requested Visits Authorized [id number] Authorized Specialty Services Required 07/12/2024 08/11/2025 12 12 Encounter Details Date Type Department Care Team (Late st Contact Info) Description 08/03/2024 1:00 PM CDT Office Visit [facility] Gastroenterology [address] [facility] 12th [place] [address] [place] [address] Nathaly Cameron PA [address] [place] [address] Rectal bleeding (Primary Dx); Altered bowel habits Social History Tobacco Use Types Packs/Day Years [...] Sign Reading Time Taken Comments Blood Pressure 130/87 08/03/2024 1:00 PM CDT Pulse 118 08/03/2024 1:00 PM CDT Temperature 36.7 ??C (98 ??F) 08/03/2024 1:00 PM CDT Respiratory Rate - - Oxygen Saturation 98% 08/03/2024 1:00 PM CDT Inhaled Oxygen Concentration - - Weight 76.7 kg (169 lb) 08/03/2024 1:00 PM CDT Height 170.2 cm (5' 7 ) 08/03/2024 1:00 PM CDT Body Mass Index 26.47 08/03/2024 1:00 PM CDT documented in this encounter Patient Instructions * Patient Instructions* Nathaly Cameron PA - 08/03/2024 1:00 PM CDT Thank you for coming to see us today. We look forward to providing your consultative gastrointestinal care and will be communicating our recommendations with your referring and/or primary care physicians (or nurse practitioner/physicians assistant therapy aide). Our approach to your gastrointestinal care is team focused and may include seeing a physician assistant therapy aide or nurse practitioner, GI registered nurse practitioner and/or GI psychologist. We are a teaching facility (medical school), and you may also see medical students, internal medicine residents or gastroenterology fellows (physicians who have completed internal medicine and are obtaining additional training to become a soap maker). Please know that we communicate with each other and focus on providing the best care for your gastrointestinal condition. Our team includes Dr. Melanie Smith MD, Leda Cameron PA-C (Physician Hotel Assistant Manager), Betsy Rodriguez LPN(GI nurse), Ms. Carmen Oliveira (retail administrative assistant), and occasionally other members of our GI team. If you need to get in touch with someone from our team regarding your gastrointestinal care, pleasesend us a [employer] message. If you are not able to use [employer], please call the [employer] @ [phone]. You can reach our administrative office at [phone] during business hours and leavea message. A member of our team will get back to you within 24 hours. If you need to schedule or change an appointment, please call [phone]. Here is a summary from your visit and my recommendations: Stop by the lab on your way out to have your blood work done and to black pickler a collection kit for the stool test that I ordered. Start treating constipation with either daily Miralax or daily fiber like Metamucil. Scheduling will reach out to you regarding getting scheduled for anorectal manometry. Follow up in 3 months. We will have more information at that visit to decide if we need to move forward with a colonoscopy or not. For additional quality information about your gastrointestinal diagnosis, you are encouraged to explore this website: https://iffgd.org/ Specifically, you can take a look at: https://aboutconstipation.org/ https://aboutgimotility.org/ https://www.youandconstipation.org/en-cnstp/home documented in this encounter Progress Notes * Nathaly Cameron PA - 08/03/2024 1:00 PM CDT Images from the original note were not included. [facility] Clinic Address: [address] [place] [address], [address], [place] [address] Mailing Address: [address], [address], [place] [address] Outpatient Office Note New Patient NAME: Erika Childs : 1990 DOS: 08/03/2024 Reason for referral: 07/12/2024 Rectal bleeding Consult requested by: Rita Sykes PA Primary Care Physician: Rita Sykes PA Subjective Chief complaint: rectal bleeding HPI Ms. Childs is a 33 y.o. female with anxiety who presents for further evaluation of rectal bleeding. At last visit with PCP, patient reported having a significant amount of bleeding with only a small amount of stool. Increased fiber and water were recommended at the time. Referral was placed for possible colonoscopy for patient piece of mind. Weight gain, not weight loss. NSAIDS - Meloxicam 7.5 mg. Approximately twice a week since April. Birthing history - one vaginal delivery. Tore a little bit and had stitches but not excessively Family history - none Patient went to the ER about 6 weeks ago. Went to [facility]. 6 months of back pain that wasnew for her and wasn't feeling well, nausea. Has been getting random bouts of nausea. Currently in Intensive Outpatient Therapy at [facility]. Started doing EMDR that brought up a lot of things that 3 times a week for 3 hours to help get her anxiety under control. August 23 going back. Nausea started with increased anxiety. Nausea has been happening about every other day, up to daily. Possibly when more empty. Nausea accompanied by mouth watering like she is going to throw up. Not vomiting though. No acid reflux. Appetite has been poor lately. Eats a lot at night. She has been sleeping a lot lately. Had a lot of bright red blood with clots. Thought that she started her period and then discovered that it was coming from her rectum. Had had diarrhea and a little bit of blood in her stool earlier that day. Found blood in her rectum in the ER. Pain is hard for her to define. She is in pain a lot so ignores it. Has almost no cartilage in her right knee. 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 The night that she was having the blood in her stool, she had central abdominal pain radiating to her back. Smokes marijuana and eats edibles. That night smoked some MJ. Does not drink alcohol. She has had blood in her stool in the past. Possible hemorrhoid since . Uncertain, but doesn't believe to have had blood in stools since her ER visit. Bowels are irregular. Lori, the next day diarrhea Constipation (infrequent stools) happens rarely. Every day to every other day. Does not feel complete evacuation. Has to strain a lot to go. Sometimes normal and then will sometimes pass hard stools and then loose. Not currently on anything or regulating her bowels. No past medical history on file. Past Surgical History: Procedure Laterality Date APPENDECTOMY 2011 PYELOPLASTY Right 2011 REFRACTIVE SURGERY Bilateral 2017 Patient Active Problem List Diagnosis Skin lesion BMI 25.0-25.9,adult Attention deficit hyperactivity disorder (ADHD), predominantly inattentive type Anxiety Insomnia Lipid screening Diabetes mellitus screening Fatigue Positive depression screening History of COVID-19 Duplicated right renal collecting system Flank pain Lumbar back pain Rectal bleeding Acute cough Current Outpatient Medications: cariprazine (VRAYLAR) 1.5 mg capsule capsule, Take 1 capsule (1.5 mg total) by mouth daily, Disp: ,Rfl: clonazePAM (KlonoPIN) 0.5 mg tablet, Take 1 tablet (0.5 mg total) by mouth 3 (three) times a day asneeded for anxiety, Disp: 90 tablet, Rfl: [address] (CYMBALTA) 60 mg capsule, Take 1 capsule (60 mg total) by mouth daily, Disp: , Rfl: meloxicam (MOBIC) 7.5 mg tablet, TAKE 1 TABLET BY MOUTH EVERY DAY (Patient taking differently: Take1 tablet (7.5 mg total) by mouth as needed), Disp: 30 tablet, Rfl: 1 mirtazapine (REMERON) 7.5 mg tablet, Take 1 tablet (7.5 mg total) by mouth daily, Disp: , Rfl: dextroamphetamine-amphetamine XR (ADDERALL XR) 20 mg 24 hr capsule, TAKE 1 CAPSULE BY MOUTH TWICE ADAY (SWALLOW WHOLE) (Patient not taking: Reported on 08/03/2024), Disp: , Rfl: Allergies Allergen Reactions Aripiprazole Nausea only Family History Problem Relation Age of Onset Depression Mother Anxiety disorder Mother Heart attack Father Hypertension Father Anxiety disorder Father Depression Father Breast cancer Father's Sister Ovarian cancer Neg Hx Uterine cancer Neg Hx Colon cancer Neg Hx Social History Tobacco Use Smoking status: Never Smokeless tobacco: Never Substance and Sexual Activity Drug use: Yes Types: Marijuana Comment: edibles Sexual activity: Defer Alcohol Use: Not At Risk (08/12/2024) AUDIT-C Frequency of Alcohol Consumption: Never Average Number of Drinks: Patient does not drink Frequency of Binge Drinking: Never ROS As outlined in HPI. Other pertinent positives are bolded. General: Chills, fevers, lack of energy, tiredness, Lack of appetite, Weakness, Weight gain, Weight loss Difficulty sleeping History of Blood transfusion, Prolonged bleeding HEENT: Cataracts, change in vision, glaucoma Hoarseness, Mouth ulcers, Nosebleeds, Tinnitus, Sore throat Cardiovascular: Chest pain, Palpitations, Hypertension, Prior myocardial infarction, Peripheral edema Respiratory: Asthma, Prior pneumonia, Shortness of breath, Prior pulmonary embolus Musculoskeletal Arthritis, Back pain, Joint pain, Raynaud's phenomenon Endocrine: Diabetes, Thyroid disease, Low blood sugar/hypoglycemia, Genitourinary Dysuria, urinary frequency, Kidney disease Skin: Easy bruising, Extreme dryness, Pruritus, Jaundice, Rashes Neurologic: Dizziness, Fainting, Headache, Migraines, Numbness/tingling, Seizures, Confusion, Memory loss Psychiatric Anxiety, Depression, Bipolar , Suicide attempts, Under care of mental health professional All other systems negative. Objective Vital Signs BP 130/87 Pulse 118 Temp 36.7 ??C (98 ??F) Ht 170.2 cm (5' 7 ) Wt 76.7 kg (169 lb) SpO2 98% BMI 26.47 kg/m?? Wt Readings from Last 3 Encounters: 08/03/24 76.7 kg (169 lb) 05/16/24 73.8 kg (162 lb 9.6 oz) 01/29/24 67.1 kg (148 lb) Physical Exam GENERAL: Well-appearing, no acute distress, overweight HEENT: Sclerae anicteric. NECK: Supple without lymphadenopathy. LUNGS: Clear to auscultation CARDIOVASCULAR: regular rate and rhythm, no murmur ABDOMEN: soft, non-tender; bowel sounds normal; no masses, no organomegaly RECTAL: anterior soft, non-tender external hemorrhoid, normal anal reflex, no rashes, mildly increased resting pressure, weak push effort. EXTREMITIES: No clubbing, cyanosis or edema, or evident deformity SKIN: No rash or jaundice. Numerous scars on forearm from cutting. NEUROLOGIC: Grossly nonfocal on simple observation with normal insight, memory, affect, and orientation, and no focal weakness evident. Results: Labs Lab Results Component Value Date HGB 13.7 01/08/2024 HCT 40.9 01/08/2024 MCV 93.2 01/08/2024 LABPLAT 186 01/08/2024 Lab Results Component Value Date GLUCOSE 82 01/08/2024 CALCIUM 8.8 01/08/2024 SODIUM 137 01/08/2024 POTASSIUM 4.3 01/08/2024 CO2 23 01/08/2024 CHLORIDE 105 01/08/2024 BUNSER 12 01/08/2024 CREATININE 0.76 01/08/2024 Lab Results Component Value Date ALT 9 01/08/2024 AST 17 01/08/2024 ALKPHOS 38 (L) 01/08/2024 BILITOT <0.2 01/08/2024 Imaging 01/08/2024 KUB FINDINGS: BOWEL: Nonspecific nonobstructive bowel gas pattern. Mild scattered stool throughout the colon. SOFT TISSUES: No renal calculus or calcification along the expected course of the ureters identified. IUD projected over the mid pelvis. Images personally reviewed by me. Agree with bowel assessment. Endoscopy None GI Physiologic testing None Assessment/Plan Assessment: Rectal bleeding None since time of referral Potentially due to external hemorrhoid and constipation. Labs and stool test ordered to screen for IBD, autoimmune. No red flag symptoms and no family history to raise risk of GI cancer, so we will wait until after labs reviewed before deciding on getting a colonoscopy. Altered bowel habits Irregular bowel habits, more constipation. Signs and symptoms of pelvic floor dysfunction. Anorectal manometry ordered. Daily constipation treatment such as Miralax or fiber. Colon cancer screening to start at age 45. Patient is average risk based on family history. Prior screening - none. CDC recommended hepatitis C testing, consider at follow up visit. Not addressed today. Other medical co-morbidities potentially impacting gastrointestinal symptoms include: Anxiety, depression Recommendations/Plan: Stop by the lab on your way out to have your blood work done and to black pickler a collection kit for the stool test that I ordered. Start treating constipation with either daily Miralax or daily fiber like Metamucil. Scheduling will reach out to you regarding getting scheduled for anorectal manometry. Follow up in 3 months. We will have more information at that visit to decide if we need to move forward with a colonoscopy or not. Orders Placed This Encounter Procedures CBC with auto differential CRP (acute phase) Calprotectin, fecal Tissue transglutaminase IgA (TGG-IgA Ab) Erythrocyte sedimentation rate High Resolution Anorectal Motility (Rectal Sensation/Tone) with Balloon Expulsion - [facility] Physician Hotel Assistant Manager - Working in collaboration [place] [address] Cosigned by Melanie Smith MD at 08/12/2024 3:23 PM CDT Associated attestation - Melanie Smith MD - 08/12/2024 3:23 PM CDT I have personally reviewed the history, physical examination, laboratory studies and proposed management for Erika Childs. I agree with the recommended plan of care. I did not personally see the patient on this date. Melanie Smith MD, MPH Gastroenterology Attending documented in this encounter Plan of Treatment Scheduled Orders Name Type Priority Associated Diagnoses Orde r Schedule CBC with auto differential Lab Routine Rectal bleeding Altered bowel habits Expected: 08/06/2024, Expires: 08/03/2025 CRP (acute phase) Lab Routine Rectal bleeding Altered bowel habits Expected: 08/06/2024, Expires: 08/03/2025 Calprotectin, fecal Lab Routine Rectal bleeding Altered bowel habits Expected: 08/03/2024, Expires: 08/03/2025 Tissue transglutaminase IgA (TGG-IgA Ab) Lab Routine Rectal bleeding Altered bowel habits Expected: 08/10/2024, Expires: 08/03/2025 Erythrocyte sedimentation rate Lab Routine Rectal bleeding Altered bowel habits Expected: 08/10/2024, Expires: 08/03/2025 High Resolution Anorectal Motility (Rectal Sensation/Tone) with Balloon Expulsion - GI Routine Rectal bleeding Altered bowel habits 1 Occurrences starting 08/05/2024 until 08/05/2025 documented as of this encounter Visit Diagnoses Diagnosis Rectal bleeding- Primary Hemorrhage of rectum and anus Altered bowel habits documented in this encounter Discontinued Medications Medication Sig Discontinue Reason Start Date End Da te cyclobenzaprine (FLEXERIL) 10 mg tablet Take 1 tablet (10 mg total) by mouth nightly Therapy completed 05/16/2024 08/03/2024 documented as of this encounter Historical Medications * This list may reflect changes made after this encounter. mirtazapine (REMERON) 7.5 mg tablet Take 1 tablet (7.5 mg total) by mouth daily 07/29/2024 09/02/2024 cariprazine (VRAYLAR) 1.5 mg capsule capsule Take 1 capsule (1.5 mg total) by mouth daily 07/29/2024 09/02/2024 added in this encounter Orders Outpatient Referral Count Last Ordered Date Fir st Ordered Date AMB REFERRAL TO GASTROENTEROLOGY 1 08/03/20 24 documented in this encounter Care Teams Emergency Management System Director Relationship Specialty Start Date End Date Rita Sykes PA [address] [place] [address] PCP - General Internal Medicine 04/05/21 documented as of this encounter
--- OUTSIDE RECORDS SUMMARY | 2024-11-20 17:04 | XMS_ITS | Encounter Summary ---
Author Organization [facility] Address [address] [place] [address] Phone Care Team Providers Care Test Borer Helper Name Role Phone Rita Sykes Primary Care Provider +1- [phone] Reason for Visit * Reason Onset Date Comments outstanding labs 10/03/2024 Encounter Details Date Type Department Care Team (Late st Contact Info) Description 10/03/2024 Telephone [facility] Gastroenterology [address] [facility] 12th [place] [address] [place] [address] Betsy Rodriguez LPN outstanding labs Social History Tobacco Use Types Packs/Day Years [...] Telephone Encounter - Betsy Rodriguez LPN - 10/03/2024 11:30 AM CST Called LVM for pt, has outstanding labs and needs to schedule ARM. Pt has been contacted by phone and my chart with no response. Pt has return visit on 11/02/2024. I also my charted pt again. On 09/08, pt still has not read that My Chart message. ENGER ATTENDANT documented in this encounter Plan of Treatment Not on file documented as of this encounter Visit Diagnoses Not on filedocumented in this encounter Care Teams Test Borer Helper Relationship Specialty Start Date End Date Rita Sykes PA [address] [facility] [address] [place] [address] PCP - General Internal Medicine 04/05/21 documented as of this encounter
--- OUTSIDE RECORDS SUMMARY | 2024-11-20 17:05 | XMS_ITS | Encounter Summary ---
Author Organization [facility] Address [address] [place] [address] Care Team Providers Care Patient Services Coordinator Name Role Phone Rita Sykes Primary Care Provider +1- [phone] Reason for Referral * Consultation (Routine) - Closed Specialty Diagnoses / Procedures Referred By Barber t Referred To Contact Physical Therapy Diagnoses Lumbar back pain Rita Sykes PA [address] [place] [address] Phone: tel: fax: External Order Referral ID Status Reason Start Date Expiration Date V isits Requested Visits Authorized [id number] Closed Specialty Services Required 05/16/2024 06/15/2025 24 24 Question Answer PTRFR PT Evaluate and Treat Therapy options discussed with patient? Yes Location provided for therapy services is: Patient requested/Patient preferred Please select the performing region: External Order [171] # of visits: 24 Comments PT Eval and Treat 2-3 times/week for 4-6 weeks Dx: lumbar back pain * Diagnostic Imaging (Routine) - Pending Review Specialty Diagnoses / Procedures Referred By Contac t Referred To Contact Diagnoses Lumbar back pain Procedures XR Hip Left W Pelvis 2 or 3 Views Rita Sykes PA [address] [place] [address] Phone: tel: fax: External Order Referral ID Status Reason Start Date Expiration Date V isits Requested Visits Authorized [id number] Pending Review 05/16/2024 06/15/2025 1 1 * Diagnostic Imaging (Routine) - Pending Review Specialty Diagnoses / Procedures Referred By Contac t Referred To Contact Diagnoses Lumbar back pain Procedures XR Spine Lumbar 2 Or 3 Vw Rita Sykes PA [address] [place] [address] Phone: tel: fax: External Order Referral ID Status Reason Start Date Expiration Date V [employer] Requested Visits Authorized [id number] Pending Review 05/16/2024 06/15/2025 1 1 Reason for Visit * Reason Comments Back Pain Pt 2-3 wks ago pt wa s getting her daughter out of her carseat and feels that she threw her back out. Pt since that time has tried to be careful, but on Thursday05/13/24 pt was playing w/ her daughter and fell on the title floor at home this re-aggravated the low back injury. Pt has been taking ibuprofen and Tylenol for pain mgn it does help much. Pt needs to go over meds and dosages. Encounter Details Date Type Department Care Team (Late st Contact Info) Description 05/16/2024 4:30 PM CDT Office Visit [facility] Family Medicine [address] [place] [address] Rita Sykes PA [address] [place] [address] Lumbar back pain (Primary Dx); BMI 25.0-25.9,adult Social History Tobacco Use Types [...] Sign Reading Time Taken Comments Blood Pressure 104/70 05/16/2024 4:51 PM CDT Pulse 67 05/16/2024 4:51 PM CDT Temperature 37.2 ??C (98.9 ??F) 05/16/2024 4:51 PM CD T Respiratory Rate - - Oxygen Saturation 96% 05/16/2024 4:51 PM CDT Inhaled Oxygen Concentration - - Weight 73.8 kg (162 lb 9.6 oz) 05/16/2024 4:51 P M CDT Height 170.2 cm (5' 7 ) 05/16/2024 4:51 PM CDT Body Mass Index 25.47 05/16/2024 4:51 PM CDT documented in this encounter Ordered Prescriptions Prescription Sig Dispense Quantity Refills Last Filled Start Date End Date DULoxetine DR (CYMBALTA) 60 mg capsule Take 1 capsule (60 mg total) by mouth daily 05/16/2024 cyclobenzaprine (FLEXERIL) 10 mg tablet Take 1 tablet (10 mg total) by mouth nightly 5 tablet 05/16/2024 meloxicam (MOBIC) 7.5 mg tablet Take 1 tablet (7.5 mg total) by mouth daily 30 tablet 1 05/16/2024 4 documented in this encounter Progress Notes * Rita Sykes PA - 05/16/2024 4:30 PM CDT Images from the original note were not included. Subjective/Objective Patient ID: Erika Childs is a 33 y.o. female. Chief Complaint Back Pain (Pt 2-3 wks ago pt was getting her daughter out of her carseat and feels that she threw her back out. Pt since that time has tried to be careful, but on Thursday05/13/24 pt was playing w/ her daughter and fell on the title floor at home this re-aggravated the low back injury. Pt has beentaking ibuprofen and Tylenol for pain mgn it does help much. Pt needs to go over meds and dosages. ) HPI 2 months ago -- was getting daughter out of car seat and felt pain in the low mid back. Midline -- no radiation into the buttock or down the legs. Over the weekend slipped and fell on left hip and thigh. Immediately felt electiricty up her back. Full control of bowels and bladder. Trying Tylenol/IBU Pain is still in the lower back just above pant line. She is able to bend over with full flexion but pain with rising from a chair and has antalgic gait. Hasn't had any xrays Review of Systems See HPI Vitals: 05/16/24 1651 BP: 104/70 BP Location: Right arm Patient Position: Sitting Pulse: 67 Temp: 37.2 ??C (98.9 ??F) TempSrc: Oral SpO2: 96% Weight: 73.8 kg (162 lb 9.6 oz) Height: 170.2 cm (5' 7 ) Physical Exam Vitals and nursing note reviewed. Constitutional: Appearance: She is well-developed. HENT: Head: Normocephalic and atraumatic. Eyes: Comments: Pupils are equal Cardiovascular: Rate and Rhythm: Normal rate and regular rhythm. Heart sounds: No murmur heard. Pulmonary: Effort: Pulmonary effort is normal. Breath sounds: Normal breath sounds. Abdominal: Palpations: Abdomen is soft. Tenderness: There is no abdominal tenderness. Musculoskeletal: Comments: Tenderness mid line spine/lumbar area. Paraspinous are tight. No pain in sciatic notch DTR patellar normal/equal (B). Able to rise from chair -- antalgic but didn't need assistance. Skin: General: Skin is warm and dry. Findings: No rash. Neurological: Mental Status: She is alert and oriented to person, place, and time. Assessment/Plan Diagnoses and all orders for this visit: Lumbar back pain (M54.50) (Primary) Assessment & Plan: Check xrays. Encouraged NSAIDS (if able to [...] bowels or bladder or if sxs worsen. Orders: - XR Spine Lumbar 2 Or 3 Vw; Future - XR Hip Left W Pelvis 2 or 3 Views; Future - Ambulatory referral order to Physical Therapy -; Future - ketorolac (TORADOL) 60 mg/2 mL intramuscular injection 60 mg; Inject 2 mL (60 mg total) into the muscle as instructed once BMI 25.0-25.9,adult (Z68.25) Assessment & Plan: Weight/BMI is in healthy range. Continue healthy lifestyle to maintain. Other orders - DULoxetine DR (CYMBALTA) 60 mg capsule; Take 1 capsule (60 mg total) by mouth daily - meloxicam (MOBIC) 7.5 mg tablet; Take 1 tablet (7.5 mg total) by mouth daily - cyclobenzaprine (FLEXERIL) 10 mg tablet; Take 1 tablet (10 mg total) by mouth nightly *This note is dictated using [employer] voice recognition software, variances in spelling and vocabulary are possible and unintentional.* Rita Sykes PA-C documented in this encounter Miscellaneous Notes * Assessment & Plan Note - Rita Sykes PA - 05/16/2024 11:31 PM CDT Associated Problem(s): Lumbar back pain Check xrays. Encouraged NSAIDS (if able to [...] bowels or bladder or if sxs worsen. * Assessment & Plan Note - Rita Sykes PA - 05/16/2024 11:30 PM CDT Associated Problem(s): BMI 25.0-25.9,adult Weight/BMI is in healthy range. Continue healthy lifestyle to maintain. documented in this encounter Plan of Treatment Scheduled Referrals Name Type Priority Associated Diagnoses Order Schedule Ambulatory referral order to Physical Therapy - Outpatient Referral Routine Lumbar back pain Expected: 05/30/2024 (Approximate), Expires: 05/16/2025 documented as of this encounter Procedures Procedure Name Priority Date/Time Associated Diagnosis Comments XR HIP LEFT W PELVIS 2 OR 3 VIEWS Schedule RAJESH, Read RAJESH (Appt Today, Awaiting Results) 05/17/2024 1:59 PM CDT Lumbar back pain XR SPINE LUMBAR 2 OR 3 VIEWS Schedule RAJESH, Read RAJESH (Appt Today, Awaiting Results) 05/17/2024 1:59 PM CDT Lumbar back pain documented in this encounter Results * XR Hip Left W Pelvis 2 or 3 Views (05/17/2024 1:59 PM CDT) Anatomical Region Laterality Modality Lower Extremities, Hip, Pelvis Left R adiographic Imaging Rita GONZÁLES IMG XR PROCEDURES Final Re sult * XR Spine Lumbar 2 Or 3 Vw (05/17/2024 1:59 PM CDT) Anatomical Region Laterality Modality Spine N/A Radiographic Ines ging Rita GONZÁLES IMG XR PROCEDURES Edited R esult - Final documented in this encounter Visit Diagnoses Diagnosis Lumbar back pain- Primary Lumbago BMI 25.0-25.9,adult documented in this encounter Administered Medications Inactive Administered Medications - up to 3 most recent administrations Medication Order MAR Action Action Date Dose Rate Site ketorolac (TORADOL) 60 mg/2 mL intramuscular injection 60 mg 60 mg, intramuscular, Once, On 05/16/24 at 1800, For 1 doseIndications:Lumbar back pain Given 05/16/2024 5:24 PM CDT 60 mg Left Dorsogluteal/Butt ock documented in this encounter Discontinued Medications Medication Sig Discontinue Reason Start Date End Da te fluticasone propionate (FLONASE) 50 mcg/actuation nasal spray Administer 2 sprays into each nostril daily 08/14/2022 05/16/2024 dextroamphetamine-amphet amine (ADDERALL) 20 mg tabletIndications:Attent ion deficit hyperactivity disorder (ADHD), predominantly inattentive type Take 1 tablet (20 mg total) by mouth 2 (two) times a day 09/04/2023 05/16/2024 traZODone (DESYREL) 100 mg tabletIndications:Insomn ia, unspecified type Take 1 tablet (100 mg total) by mouth nightly 09/04/2023 05/16/2024 mirtazapine (REMERON) 15 mg tablet TAKE 1 TABLET BY MOUTH ONCE A DAY AT BEDTIME 01/07/2024 05/16/[address] (CYMBALTA) 30 mg capsule 12/30/2023 05/16/2024 documented as of this encounter Care Teams Patient Services Coordinator Relationship Specialty Start Date End Date Rita Sykes PA [address] [place] [address] PCP - General Internal Medicine 04/05/21 documented as of this encounter
--- OUTSIDE RECORDS SUMMARY | 2024-11-20 17:05 | XMS_ITS | Encounter Summary ---
Author Organization [facility] Address [address] [place] [address] Care Team Providers Care City Carrier Name Role Phone Rita Sykes Primary Care Provider +1- [phone] Reason for Visit * Reason Onset Date Comments Can you recommend a psychiatrist 05/20/2022 Encounter Details Date Type Department Care Team (Late st Contact Info) Description 05/20/2022 Telephone [facility] Family Medicine [address] [place] [address] Rita Sykes PA [address] [place] [address] Can you recommend a psychiatrist Social History Tobacco Use Types Packs/Day Years Used Date Smoking Tobacco: Never Smokeless Tobacco: Never AUDIT-C Answer Date Recorded Q1: How often do you have a drink containing alc ohol? Never 05/09/2021 Q2: How many drinks containi ng alcohol do you have on a typical day when you are drinking? 1 or 2 05/09/2021 Q3: How often do you have six or more drinks on one occasion? Never 05/09/2021 PHQ-2 Answer Date Recorded PHQ-2 Total Score (If total score is 3 or more points, staff should administer the PHQ-9) 1 05/09/2021 Comments Unknown Sex and Gender Information Value Date Recorded Sex Assigned at Not on file Legal Sex Female 9:13 AM CDT Gender Identity Not on file Sexual Orientation Not on file documented as of this encounter Miscellaneous Notes * Telephone Encounter - Latrice Jean MA - 05/27/2022 3:23 PM CDT Per conversation with patient on 05/23/2022 I copied providers list and sent it through [employer]. * Telephone Encounter - Rita Sykes PA - 05/23/2022 10:53 AM CDT [facility] Lyndsey Maldonado, MAXINE [place] [phone] Dr. Jae Denise [phone] Dr. Chowdhury/Elisabet Dexter, MAXINE [place] [phone] * Telephone Encounter - Latrice Jean MA - 05/23/2022 10:52 AM CDT . * Telephone Encounter - Barbara Cardoso - 05/20/2022 2:42 PM CDT Loni needs a new psychiatrist as her doctor retired in March. The psychiatrist who replaced him onlydoes video vists and Loni needs in-person visits. Can you recommend someone for her? [facility] be ideal. documented in this encounter Plan of Treatment Not on file documented as of this encounter Visit Diagnoses Not on filedocumented in this encounter Care Teams City Carrier Relationship Specialty Start Date End Date Rita Sykes PA [address] [place] [address] PCP - General Internal Medicine 04/05/21 documented as of this encounter
--- OUTSIDE RECORDS SUMMARY | 2024-11-20 17:05 | XMS_ITS | Encounter Summary ---
Author Organization [facility] Address [address] [place] [address] Care Team Providers Care Curing Room Worker Name Role Phone Rita Sykes Primary Care Provider +1- [phone] Reason for Visit * Reason Onset Date Comments Symptom Based Call 11/20/2023 Call Back 11/20/2023 Encounter Details Date Type Department Care Team (Late st Contact Info) Description 11/20/2023 Telephone [facility] Family Medicine [address] [place] [address] Rita Sykes PA [address] [place] [address] Symptom Based Call; Call Back Social History Tobacco Use Types Packs/Day Years Used Date Smoking Tobacco: Never Smokeless Tobacco: Never AUDIT-C Answer Date Recorded Q1: How often do you have a drink containing alc ohol? Monthly or less 11/30/2023 Q2: How many drinks containi ng alcohol do you have on a typical day when you are drinking? 1 or 2 11/30/2023 Q3: How often do you have si x or more drinks on one occasion? Never 11/30/2023 PHQ-2 Answer Date Recorded PHQ-2 Total Score 23 11/30/2023 Comments Unknown Sex and Gender Information Value Date Recorded Sex Assigned at Not on file Legal Sex Female 9:13 AM CDT Gender Identity Not on file Sexual Orientation Not on file documented as of this encounter Miscellaneous Notes * Telephone Encounter - Sally Pereira LPN - 11/24/2023 1:16 PM [employer] Spoke to patient and she was needing a work excuse note. Pt uploaded positive test in her mychart. Work excuse note in mychart. [employer] * Telephone Encounter - Artie James - 11/24/2023 8:30 AM CST Call Back Caller???s Concern: Spoke with patient stated she never went to as instructed stated she didn't feel she needed to be seen at that time, but has since tested positive for covid and would like to know next steps. No available televisits to schedule Does message need to be routed? Yes-Action Needed [employer] * Telephone Encounter - Sally Pereira LPN - 11/20/2023 2:46 PM TE[employer]ER OF [employer] Called pateint and suggested her to go to to be seen. Explained that RSV is a virus so that is treated with OTC medication but if pt feels she has an ear or sinus infection then she could be treated by urgent care. Pt stated that she understands and if she still isnt feeling well on Thursday whenoffice reopens she will call back. [employer] * Telephone Encounter - Dottie Lopez - 11/20/2023 2:37 PM CST Symptom Based Call Chief Complaint(s): cough, sinus congestion, fatigue, ears clogged Duration: Thursday What type of symptom(s) is the patient experiencing? Non-Emergent. Is this a new or reoccurring symptom(s)? new What have you tried to help your symptom(s)? Vitamin C Why was appointment not scheduled? Appointment availability did not meet the patient's need. Additional Comments: Patient states she has upcoming appt with Rita on the 11/30/23 that she would like to keep, patient advised her daughter just tested positive for RSV and is unable to come to office. Patient is concerned she may possibly have RSV and ear infection. Patient states she symptoms are cough, sinus congestion, fatigue and ears are clogged. Patient requesting medication to be sent to [facility] [address] in [place] (pharmacy on file) SENIOR PROCUREMENT SPECIALIST did advise practice closes early on Fridays. Patient verbalized understanding. Does message need to be routed? Yes-Action Needed [employer] documented in this encounter Plan of Treatment Not on file documented as of this encounter Visit Diagnoses Not on filedocumented in this encounter Care Teams Curing Room Worker Relationship Specialty Start Date End Date Rita Sykes PA [address] [facility] [address] [place] [address] PCP - General Internal Medicine 04/05/21 documented as of this encounter
--- OUTSIDE RECORDS SUMMARY | 2024-11-20 17:05 | XMS_ITS | Encounter Summary ---
Author Organization [facility] Address [address] [place] [address] Care Team Providers Care Archeologist Name Role Phone Rita Sykes Primary Care Provider +1- [phone] Reason for Visit * Reason Onset Date Comments Medical Question/Miscellaneous 05/27/2024 Encounter Details Date Type Department Care Team (Late st Contact Info) Description 05/27/2024 Telephone [facility] Family Medicine [address] [place] [address] Rita Sykes PA [address] [place] [address] Medical Question/Miscellaneous Social History Tobacco Use Types Packs/Day Years [...] Telephone Encounter - Sally Pereira LPN - 05/30/2024 9:02 AM CDT Called pt to ask more questions about the need for the note. When pt was called on 05/18/24 to relayxray results she stated she was feeling better and was taking it easy . Asked pt if the pain flared back up. Pt stated that it was hurting her pretty bad at work on . Asked pt if she had went somewhere to be examined and pt stated no. Asked pt if she had reached out to PT to schedule an appt for therapy and pt stated no I haven't had time. Explained to pt that she needs to schedule a PT appt as they would be the ones to recommend any restrictions and that provider will assess at follow up appt on 06/01 for need of work excuse letter. Pt voiced understanding. * Telephone Encounter - Ally Michaels - 05/27/2024 4:19 PM CDT Medical Question/Miscellaneous Caller???s Concern: She says she needs a note from the doctor for her work because they need proof that she is injured and if she has restrictions and recommendations that will stop her from moving fast at work. Patient is coming for follow up 06-01-24 but is asking for this to be put into [employer] as soon as possible so her employer will allow her to stay within the restrictions. Please call patient once set to [employer]. Does message need to be routed? Yes-Action Needed documented in this encounter Plan of Treatment Not on file documented as of this encounter Visit Diagnoses Not on filedocumented in this encounter Care Teams Archeologist Relationship Specialty Start Date End Date Rita Sykes PA [address] [place] [address] PCP - General Internal Medicine 04/05/21 documented as of this encounter
--- OUTSIDE RECORDS SUMMARY | 2024-11-20 17:05 | XMS_ITS | Encounter Summary ---
Author Organization [facility] Healthcare Address [address] [place] [address] Care Team Providers Care Teleprinter Installer Name Role Phone Rita Sykes Primary Care Provider +1- [phone] Reason for Visit * Reason Comments Flank Pain Pt states she has zamudio d bilateral flank pain and bladder discomfort since finishing antibiotics since 01/01/24. She does have some burning during urination. Encounter Details Date Type Department Care Team (Late st Contact Info) Description 01/08/2024 8:30 AM LEAD RADIATION THERAPIST Office Visit [facility] Medical [facility] Family Medicine [address] [place] [address] Rita Sykes PA [address] [place] [address] Flank pain (Primary Dx); Duplicated right renal collecting system; Diabetes mellitus screening; Fatigue, unspecified type; BMI 24.0-24.9, adult Social History Tobacco Use Types Packs/Day Years [...] PHQ-2 Answer Date Recorded PHQ-2 Total Score 13 01/08/2024 Comments Unknown Sex and Gender Information Value Date Recorded Sex Assigned at Not on file Legal Sex Female 9:13 AM CDT Gender Identity Not on file Sexual Orientation Not on file documented as of this encounter Last Filed Vital Signs Vital Sign Reading Time Taken Comments Blood Pressure 112/70 01/08/2024 8:35 AM LEAD RADIATION THERAPIST Pulse 87 01/08/2024 8:35 AM LEAD RADIATION THERAPIST Temperature 36.9 ??C (98.5 ??F) 01/08/2024 8:35 AM CS T Respiratory Rate - - Oxygen Saturation 98% 01/08/2024 8:35 AM LEAD RADIATION THERAPIST Inhaled Oxygen Concentration - - Weight 69.5 kg (153 lb 4.8 oz) 01/08/2024 8:35 A M LEAD RADIATION THERAPIST Height 170.2 cm (5' 7 ) 01/08/2024 8:35 AM LEAD RADIATION THERAPIST Body Mass Index 24.01 01/08/2024 8:35 AM LEAD RADIATION THERAPIST documented in this encounter Ordered Prescriptions Prescription Sig Dispense Quantity Refills Last Filled Start Date End Date ciprofloxacin (CIPRO) 250 mg tablet Take 1 tablet (250 mg total) by mouth 2 (two) times a day for 7 days 14 tablet 01/08/2024 01/15/2024 documented in this encounter Progress Notes * Rita Sykes PA - 01/08/2024 8:30 AM CST Images from the original note were not included. Subjective/Objective Patient ID: Erika Childs is a 33 y.o. female. Chief Complaint Flank Pain (Pt states she has had bilateral flank pain and bladder discomfort since finishing antibiotics since 01/01/24. She does have some burning during urination.) HPI Patient presents to followup flank pain/hematuria Called AC last week with bladder pressure. Was treated by protocol with macrobid and thinks the bladder pressure improved but still has flank pain. Hasn't seen any blood since treatment. Still doesn't feel great -- Mild nausea, chills are present. 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 Dale in [place]. Has had 1-2 Kidney infections but otherwise fine since. Review of Systems See HPI Vitals: 01/08/24 0835 BP: 112/70 BP Location: Left arm Patient Position: Sitting Pulse: 87 Temp: 36.9 ??C (98.5 ??F) TempSrc: Oral SpO2: 98% Weight: 69.5 kg (153 lb 4.8 oz) Height: 170.2 cm (5' 7 ) [...] soft. Tenderness: There is no abdominal tenderness. Comments: Abdominal exam is benign She has right flank pain that is radiating into the RLQ -- Skin: General: Skin is warm and dry. Findings: No rash. Neurological: Mental Status: She is alert and oriented to person, place, and time. Assessment/Plan Diagnoses and all orders for this visit: Flank pain (R10.9) (Primary) Assessment & Plan: Patient was treated for UTI last week. Feels as though the bladder symptoms are improving but stillhaving right flank pain. No hematuria. Unsure if [...] significant abnormality other than the duplicated system. Lawrence was sent home with the patient to have on board. If her symptoms would increase start noticing documented fever chills or sweats she is to start immediately otherwise continue to monitor. If symptoms persist will need to consider CT abdomen and pelvis with renal stone protocol. 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 Check labs and followup to re-evaluate Orders: - CBC with auto differential; Future - Comprehensive metabolic panel; Future - Magnesium; Future - TSH; Future - Vitamin B12; Future - Vitamin D 25 hydroxy; Future BMI 24.0-24.9, adult (Z68.24) Assessment & Plan: Weight/BMI is in healthy range. Continue healthy lifestyle to maintain. Other orders - ciprofloxacin (CIPRO) 250 mg tablet; Take 1 tablet (250 mg total) by mouth 2 (two) times a day for 7 days *This note is dictated using [employer]orSearch voice recognition software, variances in spelling and vocabulary are possible and unintentional.* Rita Sykes PA-C RADIATION THERAPIST documented in this encounter Miscellaneous Notes * Assessment & Plan Note - Rita Sykes PA - 01/10/2024 11:14 PM LEAD RADIATION THERAPIST Associated Problem(s): Flank pain Patient was treated for UTI last week. Feels as though the bladder symptoms are improving but stillhaving right flank pain. No hematuria. Unsure if [...] abdomen and pelvis with renal stone protocol. RADIATION THERAPIST * Assessment & Plan Note - Rita Sykes PA - 01/10/2024 11:12 PM LEAD RADIATION THERAPIST Associated Problem(s): Fatigue Probably multifactorial. Check labs and followup to re-evaluate RADIATION THERAPIST * Assessment & Plan Note - Rita Sykes PA - 01/10/2024 11:12 PM LEAD RADIATION THERAPIST Associated Problem(s): Diabetes mellitus screening Check labs RADIATION THERAPIST * Assessment & Plan Note - Rita Sykes PA - 01/10/2024 11:12 PM LEAD RADIATION THERAPIST Associated Problem(s): BMI 24.0-24.9, adult (Resolved 05/16/2024) Weight/BMI is in healthy range. Continue healthy lifestyle to maintain. RADIATION THERAPIST * Assessment & Plan Note - Rita Sykes PA - 01/08/2024 9:13 AM LEAD RADIATION THERAPIST Associated Problem(s): Duplicated right renal collecting system 2010 -- Dr Dale in [place] Right dismembered pyleoplasty RADIATION THERAPIST documented in this encounter Plan of Treatment Not on file documented as of this encounter Procedures Procedure Name Priority Date/Time Associated Diagnosis Comments URINE CULTURE Routine 01/08/2024 9:57 AM LEAD RADIATION THERAPIST Flank pain documented in this encounter Results * XR Kub (01/08/2024 10:04 AM LEAD RADIATION THERAPIST) Anatomical Region Laterality Modality Body, Abdomen N/A Computed Radiogr aphy 01/08/2024 10:4 7 AM LEAD RADIATION THERAPIST Narrative 01/08/2024 10:52 AM LEAD RADIATION THERAPIST EXAM DESCRIPTION: ?? XR KUB REASON FOR STUDY: Has duplicate kidney and collection system on right, right flank pain. Patient with h/o complete duplex right kidney (congenital), had UTI last week associated with gross hematuria including small clots. TECHNIQUE: Single ??radiographic view of the abdomen. COMPARISON: ?? None available FINDINGS: BOWEL: ??Nonspecific nonobstructive bowel gas pattern. ??Mild scattered stool throughout the colon. SOFT TISSUES: ??No renal calculus or calcification along the expected course of the ureters identified. IUD projected over the mid pelvis. LINES/TUBES: ??None. BONES: ??No acute osseous abnormality. IMPRESSION: No acute abnormality. No renal calculus or calcification along the expected course of the ureters identified. THIS IS AN ELECTRONICALLY VERIFIED FINAL REPORT 01/08/2024 10:52 AM - Electronically signed by ??Raffi Santos M.D. AG D: ??01/08/2024 10:52 AM T: Report ID: [id number] Reading Location: ??[id number] Procedure Note Raffi Santos MD - 01/08/2024 EXAM DESCRIPTION: XR KUB REASON FOR STUDY: Has duplicate kidney and collection system on right,right flank pain. Patient with h/o complete duplex right kidney (congenital),had UTI last week associated with gross hematuria including small clots. TECHNIQUE: Single radiographic view of the abdomen. COMPARISON: None available FINDINGS: BOWEL: Nonspecific nonobstructive bowel gas pattern. Mild scattered stool throughout the colon. SOFT TISSUES: No renal calculus or calcification along the expectedcourse of the ureters identified. IUD projected over the mid pelvis. LINES/TUBES: None. BONES: No acute osseous abnormality. IMPRESSION: No acute abnormality. No renal calculus or calcification along the expected course of theureters identified. THIS IS AN ELECTRONICALLY VERIFIED FINAL REPORT 01/08/2024 10:52 AM - Electronically signed by Raffi Santos M.D. AG T: Report ID: [id number] Reading Location: [id number] Rita GONZÁLES IMG XR PROCEDURES Final Re sult * Urine culture Urine, clean voided (01/08/2024 9:57 AM LEAD RADIATION THERAPIST) Pathologist [facility] Urine culture [facility] Comment: ??CULTURE, URINE, ROUTINE ?Micro Number: ?[id number] ??Test Status: ? Final ??Specimen Source: ?? Urine ??Specimen Quality: ??Adequate ??Result: ?No Growth Urine, clean voided 01/08/2024 9:57 AM LEAD RADIATION THERAPIST 01/09/2024 1:36 AM LEAD RADIATION THERAPIST Rita GONZÁLES LAB MICROBIOLOGY - GENERAL ORDERABLES Final Result Performing Organization Address City/[facility]/ZIP Co de Phone Number [facility] [address] [place] [address] * (ABNORMAL) Vitamin D 25 hydroxy (01/08/2024 9:46 AM LEAD RADIATION THERAPIST) Vitamin D 25-OH 20.0(L) 30.0 - 80.0 ng/mL [facility] Blood 01/08/2024 9:46 AM LEAD RADIATION THERAPIST 01/08/2024 10:03 AM LEAD RADIATION THERAPIST Rita GONZÁLES LAB BLOOD ORDERABLES Final Result Performing Organization Address [facility] Co de Phone Number [address] [employer] [place] [address] * Vitamin B12 (01/08/2024 9:46 AM LEAD RADIATION THERAPIST) Vitamin B12 492 230 - 1,250 pg/mL [facility] Blood 01/08/2024 9:46 AM LEAD RADIATION THERAPIST 01/08/2024 10:03 AM LEAD RADIATION THERAPIST Rita GONZÁLES LAB BLOOD ORDERABLES Final Result Performing Organization Address [facility] de Phone Number [address] [employer] [place] [address] * TSH (01/08/2024 9:46 AM LEAD RADIATION THERAPIST) Thyroid Stimulating Hormone 0.71 0.30 - 4.20 mcIUnit/mL [facility] Blood 01/08/2024 9:46 AM LEAD RADIATION THERAPIST 01/08/2024 10:03 AM LEAD RADIATION THERAPIST Rita GONZÁLES LAB BLOOD ORDERABLES Final Result Performing Organization Address [facility] de Phone Number [address] [address] * Magnesium (01/08/2024 9:46 AM LEAD RADIATION THERAPIST) [facility] Magnesium 2.0 1.4 - 2.5 mg/dL [facility] Blood 01/08/2024 9:46 AM LEAD RADIATION THERAPIST 01/08/2024 10:03 AM LEAD RADIATION THERAPIST Rita GONZÁLES LAB BLOOD ORDERABLES Final Result Performing Organization Address [facility] Phone Number [address] [address] * Hemoglobin A1c (01/08/2024 9:46 AM LEAD RADIATION THERAPIST) [facility] Hgb A1C 5.3 4.0 - 5.6 % [facility] Estimated Average Glucose 105 mg/dL [facility] Comment: The ADA recommends reporting an estimated Average Glucose (eAG) with all Hemoglobin A1c results using the equation derived from a study of 507 normal and diabetic adults. ??Minority populations were underrepresented and children were not included. ?? (Diabetes Care 31:5555-2976, 2008). ??The eAG is not equivalent to a fasting glucose. Blood 01/08/2024 9:46 AM LEAD RADIATION THERAPIST 01/08/2024 10:03 AM LEAD RADIATION THERAPIST Rita GONZÁLES LAB BLOOD ORDERABLES Final Result Performing Organization Address [facility] de Phone Number [address] [address] * (ABNORMAL) Comprehensive metabolic panel (01/08/2024 9:46 AM LEAD RADIATION THERAPIST) [facility] Sodium 137 135 - 145 mmol/L [facility] Potassium, pl 4.3 3.3 - 4.9 mmol/L [facility] Chloride 105 97 - 110 mmol/L [facility] CO2 23 22 - 32 mmol/L [facility] Anion gap 9 2 - 15 mmol/L [facility] BUN 12 6 - 25 mg/dL [facility] Creatinine 0.76 0.60 - 1.10 mg/dL [facility] Glucose 82 70 - 199 mg/dL [facility] Comment: Interpretive Data Fasting glucose >/= 126 mg/dl is diagnostic for diabetes. ?? Fasting is defined as no caloric intake for at least 8 hours. Fasting glucose between 100 mg/dl to 125 mg/dl is diagnostic of prediabetes. In a patient with classic symptoms of hyperglycemia or hyperglycemic crisis, a random glucose >/= 200 mg/dl is diagnostic for diabetes. In the absence of unequivocal hyperglycemia, results should be confirmed by repeat testing. The classification and Diagnosis of Diabetes Diabetes Care 2021; 46: S19-S40. Current interpretive data was last revised 2022. Calcium 8.8 8.5 - 10.3 mg/dL [facility] Bilirubin, total <0.2 0.1 - 1.2 mg/dL [facility] Protein, pl 7.0 6.5 - 8.5 g/dL [facility] Albumin 4.4 3.5 - 5.0 g/dL [facility] Alk phos 38(L) 40 - 130 Units/L [facility] ALT 9 7 - 45 Units/L [facility] AST 17 10 - 45 Units/L [facility] Blood 01/08/2024 9:46 AM LEAD RADIATION THERAPIST 01/08/2024 10:03 AM LEAD RADIATION THERAPIST Rita GONZÁLES LAB BLOOD ORDERABLES Final Result [facility] [address] Department [place] [address] * CBC with auto differential (01/08/2024 9:46 AM LEAD RADIATION THERAPIST) Pathologist [facility] WBC 5.0 3.8 - 9.9 K/cumm [facility] Hgb 13.7 11.9 - 15.5 g/dL [facility] Hct 40.9 35.6 - 45.5 % [facility] Plt 186 150 - 400 K/cumm [facility] MPV 10.7 9.1 - 12.3 fL [facility] RBC 4.39 3.90 - 5.20 M/cumm [facility] MCV 93.2 81.3 - 96.4 fL [facility] MCH 31.2 27.1 - 33.3 pg [facility] MCHC 33.5 32.3 - 35.7 g/dL [facility] RDW CV 12.1 11.1 - 14.9 % [facility] RDW SD 41.5 35.7 - 48.1 fL [facility] NRBC abs 0.00 0.00 - 0.01 K/cumm [facility] Blood 01/08/2024 9:46 AM LEAD RADIATION THERAPIST 01/08/2024 10:03 AM LEAD RADIATION THERAPIST Rita GONZÁLES LAB BLOOD ORDERABLES Final Result Performing Organization Address City/State/[facility] Co de Phone Number [facility] [address] Department [place] [address] documented in this encounter Visit Diagnoses Diagnosis Flank pain- Primary Abdominal pain, unspecified site Duplicated right renal collecting system Unspecified congenital anomaly of urinary system Diabetes mellitus screening Screening for diabetes mellitus Fatigue, unspecified type BMI 24.0-24.9, adult Flank pain Abdominal pain, unspecified site documented in this encounter Discontinued Medications Medication Sig Discontinue Reason Start Date End Da te nitrofurantoin monohydrate (MACROBID) 100 mg capsule TAKE 1 CAPSULE BY MOUTH TWICE A DAY FOR 5 DAYS 12/29/2023 01/08/2024 documented as of this encounter Historical Medications * This list may reflect changes made after this encounter. nitrofurantoin monohydrate (MACROBID) 100 mg capsule TAKE 1 CAPSULE BY MOUTH TWICE A DAY FOR 5 DAYS 12/29/2023 01/08/[address] (CYMBALTA) 30 mg capsule 12/30/2023 05/16/2024 added in this encounter Care Teams Teleprinter Installer Relationship Specialty Start Date End Date Rita Sykes PA [address] [place] [address] PCP - General Internal Medicine 04/05/21 documented as of this encounter
--- OUTSIDE RECORDS SUMMARY | 2024-11-20 17:05 | XMS_ITS | Encounter Summary ---
Author Organization [facility] Healthcare Address [address] [place] [address] Care Team Providers Care Furniture Mover Helper Name Role Phone Rita Sykes Primary Care Provider +1- [phone] Reason for Visit * Reason Onset Date Comments Medical Question/Miscellaneous 12/30/2023 Encounter Details Date Type Department Care Team (Late st Contact Info) Description 12/30/2023 Telephone [facility] Medical Group Family Medicine [address] [place] [address] Rita Sykes PA [address] [place] [address] Medical Question/Miscellaneous Social History Tobacco [...] encounter Miscellaneous Notes * Telephone Encounter - Haley Butler MA - 01/05/2024 12:07 PM CST Patient is doing a lot better, she does have lab work she needs to complete and will do that when she is able. Y EQUIPMENT SPECIALIST * Telephone Encounter - Rita Sykes PA - 01/03/2024 8:21 PM DAIRY EQUIPMENT SPECIALIST Please call and check on patient -- How is she doing? If she is still having symptoms, she will need to come in for appointment. Y EQUIPMENT SPECIALIST * Telephone Encounter - Yadi Berrios MA - 12/30/2023 8:23 AM CST Medical Question/Miscellaneous Caller???s Concern: patient called, she started the antibiotic last night, pateint is still uncomfortable and has ache in bilateral flank, worse on right. This started last night, she feels some better, has taken Azo. She states she has not eaten, and can go get labs ordered at her last visit. Does message need to be routed? Yes-Action Needed Y EQUIPMENT SPECIALIST documented in this encounter Plan of Treatment Not on file documented as of this encounter Visit Diagnoses Not on filedocumented in this encounter Care Teams Furniture Mover Helper Relationship Specialty Start Date End Date Rita Sykes PA [address] [place] [address] PCP - General Internal Medicine 04/05/21 documented as of this encounter
--- OUTSIDE RECORDS SUMMARY | 2024-11-20 17:05 | XMS_ITS | Encounter Summary ---
Author Organization [facility] Healthcare Address [address] [place] [address] Care Team Providers Care Director Of Neurology Name Role Phone Rita Sykes Primary Care Provider [phone]- [phone] Reason for Visit * Reason Comments New Patient Well Women Visit Encounter Details Date Type Department Care Team ([facility] st Contact Info) Description 01/29/2024 2:15 PM BRUSH HOLDER ASSEMBLER Office Visit [facility] Obstetrical Gynecology [address] [phone] Ly Gonsalez MD [address] [address] Well woman exam (Primary Dx); Encounter for other general counseling or advice on contraception; Screening examination for STD (sexually transmitted disease); Insertion of Nexplanon Social History Tobacco Use Types Packs/Day Years [...] Recorded PHQ-2 Total Score 13 01/08/2024 Comments No Sex and Gender Information Value Date Recorded Sex Assigned at Not on file Legal Sex Female 9:13 AM CDT Gender Identity Not on file Sexual Orientation Not on file documented as of this encounter Last Filed Vital Signs Vital Sign Reading Time Taken Comments Blood Pressure 108/60 01/29/2024 2:31 PM BRUSH HOLDER ASSEMBLER Pulse - - Temperature - - Respiratory Rate - - Oxygen Saturation - - Inhaled Oxygen Concentration - - Weight 67.1 kg (148 lb) 01/29/2024 2:31 PM BRUSH HOLDER ASSEMBLER Height 170.2 cm (5' 7 ) 01/29/2024 2:31 PM BRUSH HOLDER ASSEMBLER Body Mass Index 23.18 01/29/2024 2:31 PM BRUSH HOLDER ASSEMBLER documented in this encounter Progress Notes * Ly Gonsalez MD - 01/29/2024 2:15 PM CST Images from the original note were not included. Well Woman Exam Chief Complaint Patient presents with New Patient Well Women Visit Subjective: Erika Pelaez is a 33 y.o. who presents for a well woman exam. Patient reports having Mirena IUD in place since of her child in 2020. She is amenorrheic with the device but no overly happy with the device overall and is questioning an alternative method. She reports having some cervical swelling and increased episodes of BV. Engaged currently. They do not plan in the near future. Menstrual History: No LMP recorded. (Menstrual status: IUD). Sexual History: Sexual History Sexually Transmitted Infection History: None OB History 1 Para 1 Term 1 AB Living 1 SAB IAB Ectopic Multiple Live Births # Outcome Date GA Labor/2nd Weight Sex Delivery Anes PTL Lv A1 A5 1 Term History reviewed. No pertinent past medical history. Past Surgical History: Procedure Laterality Date REFRACTIVE SURGERY Bilateral 2017 Current Outpatient Medications: clonazePAM (KlonoPIN) 0.5 mg tablet, Take 1 tablet (0.5 mg total) by mouth 3 (three) times a day asneeded for anxiety, Disp: 90 tablet, Rfl: 0 dextroamphetamine-amphetamine XR (ADDERALL XR) 20 mg 24 hr capsule, TAKE 1 CAPSULE BY MOUTH TWICE ADAY (SWALLOW WHOLE), Disp: , Rfl: DULoxetine DR (CYMBALTA) 30 mg capsule, , Disp: , Rfl: dextroamphetamine-amphetamine (ADDERALL) 20 mg tablet, Take 1 tablet (20 mg total) by mouth 2 (two)times a day (Patient not taking: Reported on 01/29/2024), Disp: 60 tablet, Rfl: 0 fluticasone propionate (FLONASE) 50 mcg/actuation nasal spray, Administer 2 sprays into each nostril daily (Patient not taking: Reported on 06/12/2023), Disp: 1 each, Rfl: 2 mirtazapine (REMERON) 15 mg tablet, TAKE 1 TABLET BY MOUTH ONCE A DAY AT BEDTIME (Patient not taking: Reported on 01/29/2024), Disp: , Rfl: traZODone (DESYREL) 100 mg tablet, Take 1 tablet (100 mg total) by mouth nightly (Patient not taking: Reported on 11/30/2023), Disp: 90 tablet, Rfl: 0 Allergies Allergen Reactions Aripiprazole Nausea only Family History Problem Relation Age of Onset No Known Problems Father No Known Problems Mother Breast cancer Father's Sister Ovarian cancer Neg Hx Uterine cancer Neg Hx Social History Tobacco Use Smoking status: Never Smokeless tobacco: Never Substance and Sexual Activity Drug use: Yes Types: Marijuana Comment: edibles Sexual activity: Defer Alcohol Use: Not At Risk (01/08/2024) AUDIT-C Frequency of Alcohol Consumption: Never Average Number of Drinks: 1 or 2 Frequency of Binge Drinking: Never Objective: BP 108/60 Ht 170.2 cm (5' 7 ) Wt 148 lb (67.1 kg) BMI 23.18 kg/m?? Physical Exam Constitutional: General: She is not in acute distress. Appearance: She is well-developed. Pulmonary: Effort: Pulmonary effort is normal. Chest: Breasts: Breasts are symmetrical. Right: Inverted nipple present. No mass, skin change or tenderness. Left: Inverted nipple present. No mass, skin change or tenderness. Abdominal: Palpations: Abdomen is soft. There is no mass. Tenderness: There is no abdominal tenderness. Genitourinary: Vagina normal and uterus normal. There is no rash or lesion on the right labia. Right labia: normal. There is no rash or lesion on the left labia. Left Labia: normal. No vaginal discharge or erythema. Right adnexa: normal. Right adnexa does not display mass and does not display tenderness. Left adnexa: normal. Left adnexa does not display mass and does not display tenderness. Cervix: visible IUD strings. Cervix does not display motion tenderness, lesion or friability. Uterus is not enlarged or tender. Musculoskeletal: General: Normal range of motion. Lymphadenopathy: Upper Body: Right upper body: No axillary adenopathy. Left upper body: No axillary adenopathy. Neurological: Mental Status: She is alert and oriented to person, place, and time. Psychiatric: Mood and Affect: Mood is not anxious or depressed. IUD Removal The strings were visible. The strings were grasped using a sterile ring forcep and the IUD was easily removed intact. Nexplanon Insertion Note Reviewed risks and benefits of alternative contraception with the patient. Consent signed. Questions answered. Patient is right handed. The patient's left arm was flexed at the elbow and externally rotated. Insertion site was selected 9 Cm from the medial epicondyle and just inferior to the sulcus per skirt maker's recommendation. The left arm was then prepped with Betadine. 3 mL of 1% Lidocaine without epineprine was injected into the arm at the selected insertion site. The Nexplanon trocar was inserted subcutaneously and deployed per skirt maker's guidelines and without difficulty. Implant was easily palpable by both the p atient and provider to ensure appropriate placement. A steri-strip was applied over the insertion site. Pressure bandage was then applied over this to reduce swelling and hematoma formation. Patient was counseled to keep the pressure bandage in place for 24 hrs and the steri-strip in placefor 3-5 days. Assessment and Plan: Erika Pelaez is a 33 y.o. female who presents for a well woman exam. 1. Maintenance: --pap performed --neg CBE --discussed diet/exercise --bone health: Ca/Vit D reviewed, weight bearing --contraception: after counseling, patient desired to have IUD removed and Nexplanon inserted. --STI screening: desired Ly Gonsalez MD 01/29/2024 H HOLDER ASSEMBLER documented in this encounter Plan of Treatment Not on file documented as of this encounter Results * Trichomonas vaginalis PCR Endocervical (01/29/2024 3:14 PM BRUSH HOLDER ASSEMBLER) Pathologist [facility] Trichomonas DNA Not Detected [facility] Comment: Interpretive Data This assay detects Trichomonas vaginalis by nucleic acid amplification testing (NAAT). This assay has been cleared by the [place] Food and Drug administration. The performance characteristics of this test have been verified by the [facility] Molecular Infectious Disease laboratory. The performance of this test has not been evaluated in individuals less than 18 years of age. ?? Current Interpretive Data was last revised on 2023. Testing performed by: [facility], [address] [place]., [address] Endocervical 01/29/2024 3:14 PM BRUSH HOLDER ASSEMBLER 01/29/2024 11:30 PM BRUSH HOLDER ASSEMBLER Ly Gonsalez MD LAB MICROBIOLOGY - GENERA L ORDERABLES Final Result Performing Organization Address City/[facility]/ZIP Co de Phone Number [facility] [address] [facility] Department [place] [address] [facility] * N. gonorrhoeae/C. trachomatis Amplification Endocervical (01/29/2024 3:14 PM BRUSH HOLDER ASSEMBLER) C. trachomatis Not Detected [facility] Comment:Testing performed by : [facility], [address] [facility] [place]., [address] N. gonorrhoeae Not Detected [facility] Comment: Interpretive Data This assay detects Chlamydia trachomatis and Neisseria gonorrhoeae by nucleic acid amplification testing (NAAT). This assay has been cleared by the [place] Food and Drug administration. The performance characteristics of this test have been verified by the [facility] Infectious Disease laboratory. The performance characteristics of this test have not been evaluated in individuals less than 14 years of age. Current Interpretive Data was last revised on 2023. Testing performed by: [facility], [address] [facility] [place]., [address] Endocervical (None) 01/29/20 3:14 PM BRUSH HOLDER ASSEMBLER 01/29/2024 11:30 PM BRUSH HOLDER ASSEMBLER Ly Gonsalez MD LAB MICROBIOLOGY - GENERA L ORDERABLES Final Result Performing Organization Address City/[facility]/ZIP Co de Phone Number [facility] [address] [facility] Department [place] [address] [facility] * High Risk HPV DNA Detection with Genotyping (Molecular component) (01/29/2024 3:14 PM BRUSH HOLDER ASSEMBLER) HPV HR 16 Not Detected Not Detected [facility] Comment:Testing performed by : [facility], [address] [place]., [address] HPV HR 18 Not Detected Not Detected [facility] Comment:Testing performed by : [facility], [address] [place]., [address] HPV HR Non 16/18 Not Detected Not Detected [facility] Comment: Interpretive Data Nucleic acid amplification for [...] test have been verified by the [facility] Infectious Disease laboratory. Correlate with separately reported cytology results, as applicable. Interpretive data last revised 23 Testing performed by: [facility], [address] [place]., [address] Endocervical 01/29/2024 3:14 PM BRUSH HOLDER ASSEMBLER 02/02/2024 9:38 AM CDT Narrative [facility] - 02/03/2024 4:46 AM CDT Clinical history and diagnosis->screening Testing type->Screening Last menstrual period (date if known)->iud Ly Gonsalez MD LAB BODY FLUIDS AND STOOL S ORDERABLES Final Result [facility] [address] [facility] Department [place] [address] [facility] * Pap and High Risk HPV and Genotyping (Cytology Component) (01/29/2024 3:13 PM BRUSH HOLDER ASSEMBLER) Thin prep (Pap test) 01/29/2024 3:13 PM BRUSH HOLDER ASSEMBLER 02/01/2024 8:04 AM CDT Narrative PATHOLOGY [facility] - 02/05/2024 8:06 AM CDT EPIC results best viewed via link to PDF [facility] [place] [address] Note to Patients: This report may contain a detailed description of human tissue sent by a health care provider to the laboratory for pathologic evaluation. The content of this report is essential for diagnosis and may provide important critical findings. This information may be unfamiliar to patients to review without a medical professional present. It is advised that the patient review this report in the presence of a health care provider who can answer questions and explain the details. CYTOPATHOLOGY REPORT FINAL Patient Name: ??ERIKA PELAEZ Gender: ??F : ??1990 (Age: 33) Address: ??[address] [place] [address] ??[id number] Hospital #: ??[id number] Service: ??DEFAULT Location: ?? Patient Type: ??[facility] SPECIMEN Taken: ??01/29/2024 Received: ??02/01/2024 Accessioned: ??02/01/2024 Reported: ??02/05/2024 Physician(s): ??Ly Gonsalez M.D. ?? FINAL INTERPRETATION SOURCE OF SPECIMEN ? Liquid based Thin Prep pap with HPV: STATEMENT OF ADEQUACY ?- Satisfactory for evaluation ?- Endocervical cells/transformation zone sample present ? GENERAL CATEGORIZATION: ?- Negative for squamous intraepithelial lesion or malignancy ? Comments (Normal-Negative for High Risk HPV) HPV HR 16- Not detected HPV HR 18-Not detected HPV HR non 16/18- Not detected Interpretive Data Nucleic acid amplification for detection of high-risk Human Papilloma virus (HPV) is performed by the Azael Amy 6800 HPV test. This assay specifically detects HPV- 16 and HPV-18 genotypes. The following HPV genotypes are detected as high-risk HPV: HPV-31, 33, 35, 39, 45, 51, 52, 56, 58, 59, 66, and 68. This assay has been approved by the [place] Food and Drug Administration for detection of HPV in cervical specimens collected by a physician using an endocervical brush/spatula or cervical broom and placed in the ThinPrep Pap Test PreservCyt collection containers. The performance characteristics of this test have been verified by the [facility] Molecular Infectious Disease laboratory. Correlate with reported cytology results, as applicable. Interpretive data last revised 23 laura/02/05/2024 08:06 CHAVEZ Naranjo(ASCP) Report Electronically Reviewed and Signed Out By CHAVEZ Naranjo(ASCP) 02/05/2024 08:06:10 Cervicovaginal Cytology (Pap Test) Disclaimer: The Pap test is a screening test used to detect cervical cancer and its precursors; it is not a diagnostic procedure. False negative and false positive results do occur. Pap test results should be interpreted in the context of pertinent clinical information and biopsy results as indicated. CMS Clinical Laboratory Improvement Amendments (CLIA) mandate that cytologic and histologic results be correlated for laboratory quality control representative & improvement standards. ??FOR ALL HIGH-GRADE CASES we request submission of follow-up histological material and/or reports that have not been previously provided so that we may fulfill said required standards. ?? Gross Description A. ??Liquid based Thin Prep pap with HPV: ??Cervical/vaginal - Screening ThinPrep Clinical Diagnosis and History Last Menstrual Period: Not Provided. Contraceptive History: IUD The patient is a 33 year old female with well woman exam. Report Images and scanned documents, if included only viewable in PDF version The performance characteristics of some immunohistochemical stains, in-situ hybridization and fluorescence in-situ hybridization tests and immunophenotyping by flow cytometry cited in this report (if any) were determined by the Surgical Pathology Department at [facility] as part of an ongoing senior quality manager program and in compliance with federally mandated regulations drawn from the Clinical Laboratory Improvement Act of 1988 (CLIA '88). ??Some of these tests rely on the use of analyte specific reagents and are subject to specific labeling requirements by the [place] Food and Drug Administration. ??Such diagnostic tests may only be performed in a facility that is certified by the Department of Health and Human Services as a high complexity laboratory under CLIA '88. ??The FDA has determined that such clearance or approval is not necessary. ??This test is used for clinical purposes. ??It should not be regarded as investigational or for research. ??Nevertheless, federal rules concerning the medical use of analyte specific reagents require that the following disclaimer be attached to the report: This test was developed and its performance characteristics determined by the Surgical Pathology Department of [facility]. ??It has not been cleared or approved by the U. S. Food and Drug Administration. Ly Gonsalez MD LAB CYTOLOGY ORDERABLES F inal Result PATHOLOGY [facility] documented in this encounter Visit Diagnoses Diagnosis Encounter for other general counseling or advice on contraception Screening examination for STD (sexually transmitted disease) Well woman exam Routine general medical examination at a health care facility documented in this encounter Administered Medications Inactive Administered Medications - up to 3 most recent administrations Medication Order MAR Action Action Date Dose Rate Site etonogestreL (NEXPLANON) implant subdermal, Once, On Thu01/29/24 at 1545, For 1 dose, Indications: ContraceptionIndications: Contraception Given 01/29/2024 3:12 PM BRUSH HOLDER ASSEMBLER documented in this encounter Historical Medications * This list may reflect changes made after this encounter. dextroamphetamine -amphetamine XR (ADDERALL XR) 20 mg 24 hr capsule TAKE 1 CAPSULE BY MOUTH TWICE A DAY (SWALLOW WHOLE) 01/13/2024 09/02/2024 mirtazapine (REMERON) 15 mg tablet TAKE 1 TABLET BY MOUTH ONCE A DAY AT BEDTIME 01/07/2024 05/16/2024 added in this encounter Care Teams Director Of Neurology Relationship Specialty Start Date End Date Rita Sykes PA [address] [facility] [address] [place] [address] PCP - General Internal Medicine 04/05/21 documented as of this encounter
--- OUTSIDE RECORDS SUMMARY | 2024-11-20 17:05 | XMS_ITS | Encounter Summary ---
Author Organization [facility] Address [address] [place] [address] Phone Care Team Providers Care Flaking Roll Operator Name Role Phone Rita Sykes Primary Care Provider [phone]- [phone] Reason for Visit * Reason Onset Date Comments Scheduling Appointments 04/01/2022 Encounter Details Date Type Department Care Team (Late st Contact Info) Description 04/01/2022 Telephone [facility] Ophthalmology [address] [place] [address] No, Physician Scheduling Appointments Social History Tobacco Use Types Packs/Day Years [...] encounter Miscellaneous Notes * Telephone Encounter - Erin Jung B.A. - 04/03/2022 12:33 PM CDT Ok per Dr. Sotelo next BW april 10 in return slot. Called pt gave her all appt info she is aware * Telephone Encounter - Joy Sotelo MD - 04/03/2022 11:54 AM CDT Angelina's suggested times work for my schedule. If scheduling at 10am [facility] you will need to block the 10:15am follow up slot. * Telephone Encounter - Erin Jung B.A. - 04/03/2022 11:26 AM CDT Within 7-10 day time frame there are currently not any new patient openings, however Dr. Schreiber, April 09 this would bring it to a total of 12-13 pts total in morning, 4 being new pt's and with this add on it would be five new pts. Otherwise there is 3 new pts in pm that day. Dr. Sotelo april 10 we could add this on at end of morning 10 am BW or april 22 at [facility], fit in on the am. * Telephone Encounter - Parth Schreiber MD - 04/03/2022 10:39 AM CDT Since the notes cannot be read aside from something about optic nerve and referral, almost impossible to determine how to triage. Visual acuity is 20/25 in each eye. Fundus was reportedly normal. Do we have any openings within the next 7-10 days? * Telephone Encounter - Erika Borges - 04/02/2022 2:34 PM CDT Cc of blind spot od, va od 20/25-2 os 20/20. Notes not legible from all about eyes, pt referral came from pcp due to after eye exam the service trainer recommended to f/u w/ pcp to recommend a neurologist for poss MRI and r/o of MS. H/o severe migraines. Optic neuritis eval per message from [facility] pt is c/o vision worsening. Forwarding to MD's on scheduling opinion. * Telephone Encounter - Dayday Ambrosio CNA - 04/02/2022 2:28 PM CDT Pt called and stated that the spot on her eye has gotten progressively worse and would like to knowif she can be seen sooner than first avail with [facility]. Spoke with Lanette in office and was informed thata message would be passed on to all Neuro Opth providers. 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 Were notes requested? Referral Additional comments: Patient notes blind spot in the right eye. OD - recommended further evaluation/rule out Multiple Sclerosis. documented in this encounter Plan of Treatment Not on file documented as of this encounter Visit Diagnoses Not on filedocumented in this encounter Care Teams Flaking Roll Operator Relationship Specialty Start Date End Date Rita Sykes PA [address] [facility] [address] [place] [address] PCP - General Internal Medicine 04/05/21 documented as of this encounter
--- OUTSIDE RECORDS SUMMARY | 2024-11-20 17:05 | XMS_ITS | Encounter Summary ---
Author Organization [facility] Healthcare Address [address] [place] [address] Care Team Providers Care Business Process Expert Name Role Phone Rita Sykes Primary Care Provider +1- [phone] Reason for Visit * Reason Comments Cough Pt states she is fee ling better, she has stress and anxiety since 11/23/2021. In 10/2021 pt had blurred vision and headache and syncopy. She also so a Psychiatrist who's said she is stressed from work. [facility]. 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[employer] Encounter Details Date Type Department Care Team (Latest Contact Info) Description 11/30/2023 8:00 AM GUM REMOVER Office Visit [facility] Family Medicine [address] [place] [address] Rita Sykes PA [address] [address] Fatigue, unspecified type (Primary Dx); Diabetes mellitus screening; Attention deficit hyperactivity disorder (ADHD), predominantly inattentive type; Anxiety; Lipid screening; Positive depression screening; History of COVID-19; BMI 24.0-24.9, adult Social History Tobacco Use [...] Sign Reading Time Taken Comments Blood Pressure 98/76 11/30/2023 8:12 AM GUM REMOVER Pulse 84 11/30/2023 8:12 AM GUM REMOVER Temperature 36.6 ??C (97.8 ??F) 11/30/2023 8:12 AM CS T Respiratory Rate - - Oxygen Saturation 99% 11/30/2023 8:12 AM GUM REMOVER Inhaled Oxygen Concentration - - Weight 69.7 kg (153 lb 11.2 oz) 11/30/2023 8:12 AM GUM REMOVER Height 170.2 cm (5' 7 ) 11/30/2023 8:12 AM GUM REMOVER Body Mass Index 24.07 11/30/2023 8:12 AM GUM REMOVER documented in this encounter Progress Notes * Rita Sykes PA - 11/30/2023 8:00 AM CST Images from the original note were not included. Subjective/Objective Patient ID: Erika Childs is a 33 y.o. female. Chief Complaint Cough (Pt states she is feeling better, she has stress and anxiety since 11/23/2021. In 10/2021 pt had blurred vision and headache and syncopy. She also so a Psychiatrist who's said she is stressed from work. And [facility]. 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 COVID positive 11/21 Symptoms started 11/17. Is feeling better. Dr. Marielle Pickett - Psychiatry Established with her in September for her ADD/Anxiety medications Adderall, klonipin Seeing counselor. Still feeling very anxious -- has asked that her psychiatrist work her up again to make sure treating appropriately. Denies substance abuse/overuse. No suicidal or self harm thoughts. Work has been stressful but states she is working on a project that excites her and hopefully will be able to do it exclusively soon (lead pipe replacement) Patient is feeling increased fatigue even prior to COVID. Will have times where she stands up she will feel dizzy. Admits this is usually connection to position change. Bp today was 98.76 and she thinks this is her normal. Doesn't drink enough water -- Hasn't been eating as much protien since her boyfriend has been gone to visit his family and thinksthere is a correlation. Has not had a syncopal event. No CP, palpitations or dizziness. Review of Systems See HPI Vitals: 11/30/23 0812 BP: 98/76 BP Location: Left arm Patient Position: Sitting Pulse: 84 Temp: 36.6 ??C (97.8 ??F) TempSrc: Temporal SpO2: 99% Weight: 69.7 kg (153 lb 11.2 oz) Height: 170.2 cm (5' 7 ) [...] Diagnoses and all orders for this visit: Fatigue, unspecified type (R53.83) (Primary) Assessment & Plan: Probably multifactorial. Check labs and followup to re-evaluate I also suspect this has to do with her dietary intake. She does not get enough water and she has also not getting enough protein on a regular basis. Strongly encouraged her to make these dietary changes and will see if this helps. Will also await lab results. Orders: - CBC with auto differential; Future - Comprehensive metabolic panel; Future - TSH; Future - Vitamin B12; Future - Vitamin D 25 hydroxy; Future - Magnesium; Future Diabetes mellitus screening (Z13.1) Assessment & Plan: Check labs Orders: - Hemoglobin A1c; Future Attention deficit hyperactivity disorder (ADHD), predominantly inattentive type (F90.0) Assessment & Plan: Managed by Dr. Pickett - Psychiatry Continue Adderall and Klonopin. She feels like her anxiety is really out of control and is going towork with Dr. Pickett to adjust medications. Anxiety (F41.9) Assessment & Plan: Managed by Dr. Pickett - Psychiatry Continue Adderall and Klonopin. She feels like her anxiety is really out of control and is going towork with Dr. Pickett to adjust medications. Lipid screening (Z13.220) Assessment & Plan: Check labs Orders: - Lipid panel; Future Positive depression screening (Z13.31) Assessment & Plan: Continue per Psychiatry History of COVID-19 (Z86.16) Assessment & Plan: Recent history of COVID. She is feeling much better. BMI 24.0-24.9, adult (Z68.24) Assessment & Plan: Weight/BMI is in healthy range. Continue healthy lifestyle to maintain. *This note is dictated using Adsame voice recognition software, variances in spelling and vocabulary are possible and unintentional.* Rita Sykes PA-C Cosigned by Jae Simons MD at 12/06/2023 9:34 PM GUM REMOVER REMOVER REMOVER documented in this encounter Miscellaneous Notes * Assessment & Plan Note - Rita Sykes PA - 12/06/2023 2:24 PM GUM REMOVER Associated Problem(s): History of COVID-19 Recent history of COVID. She is feeling much better. REMOVER * Assessment & Plan Note - Rtia Sykes PA - 12/06/2023 2:24 PM GUM REMOVER Associated Problem(s): Positive depression screening Continue per Psychiatry REMOVER * Assessment & Plan Note - Rita Sykes PA - 12/06/2023 2:24 PM GUM REMOVER Associated Problem(s): Fatigue Probably multifactorial. Check labs and followup to re-evaluate I also suspect this has to do with her dietary intake. She does not get enough water and she has also not getting enough protein on a regular basis. Strongly encouraged her to make these dietary changes and will see if this helps. Will also await lab results. REMOVER * Assessment & Plan Note - Rita Sykes PA - 12/06/2023 2:23 PM GUM REMOVER Associated Problem(s): Diabetes mellitus screening Check labs REMOVER * Assessment & Plan Note - Rita Sykes PA - 12/06/2023 2:23 PM GUM REMOVER Associated Problem(s): Lipid screening Check labs REMOVER * Assessment & Plan Note - Rita Sykes PA - 12/06/2023 2:23 PM GUM REMOVER Associated Problem(s): BMI 24.0-24.9, adult (Resolved 05/16/2024) Weight/BMI is in healthy range. Continue healthy lifestyle to maintain. REMOVER * Assessment & Plan Note - Rita Sykes PA - 12/06/2023 2:23 PM GUM REMOVER Associated Problem(s): Anxiety Managed by Dr. Pickett - Psychiatry Continue Adderall and Klonopin. She feels like her anxiety is really out of control and is going towork with Dr. Pickett to adjust medications. REMOVER * Assessment & Plan Note - Rita Sykes PA - 12/06/2023 2:23 PM GUM REMOVER Associated Problem(s): Attention deficit hyperactivity disorder (ADHD), predominantly inattentive type Managed by Dr. Pickett - Psychiatry Continue Adderall and Klonopin. She feels like her anxiety is really out of control and is going towork with Dr. Pickett to adjust medications. REMOVER documented in this encounter Plan of Treatment Scheduled Orders Name Type Priority Associated Diagnoses Orde r Schedule CBC with auto differential Lab Routine Fatigue, unspecified type Expected: 11/30/2023, Expires: 11/30/2024 Comprehensive metabolic panel Lab Routine Fatigue, unspecified type Expected: 11/30/2023, Expires: 11/30/2024 Hemoglobin A1c Lab Routine Diabetes mellitus screening Expected: 11/30/2023, Expires: 11/30/2024 Lipid panel Lab Routine Lipid screening Expected: 11/30/2023, Expires: 11/30/2024 TSH Lab Routine Fatigue, unspecified type Expected: 11/30/2023, Expires: 11/30/2024 Vitamin B12 Lab Routine Fatigue, unspecified type Expected: 11/30/2023, Expires: 11/30/2024 Vitamin D 25 hydroxy Lab Routine Fatigue, unspecified type Expected: 11/30/2023, Expires: 11/30/2024 Magnesium Lab Routine Fatigue, unspecified type Expected: 11/30/2023, Expires: 11/30/2024 documented as of this encounter Visit Diagnoses Diagnosis Fatigue, unspecified type- Primary Diabetes mellitus screening Screening for diabetes mellitus Attention deficit hyperactivity disorder (ADHD), predominantly inattentive type Anxiety Anxiety state, unspecified Lipid screening Screening for lipoid disorders Positive depression screening History of COVID-19 BMI 24.0-24.9, adult documented in this encounter Care Teams Business Process Expert Relationship Specialty Start Date End Date Rita Sykes PA [address] [facility] [address] [place] [address] PCP - General Internal Medicine 04/05/21 documented as of this encounter
--- OUTSIDE RECORDS SUMMARY | 2024-11-20 17:05 | XMS_ITS | Encounter Summary ---
Author Organization [facility] Healthcare Address [address] [place] [address] Care Team Providers Care Nuclear Plant Instrument Technician Name Role Phone Rita Sykes Primary Care Provider +1- [phone] Encounter Details Date Type Department Care Team (Late st Contact Info) Description 01/08/2024 9:40 AM ABRASIVE MIXER HELPER Lab [facility] [address] [place] [address] Fatigue, unspecified type; Diabetes mellitus screening Social History Tobacco Use Types Packs/Day Years [...] Procedure Name Priority Date/Time Associated Diagnosis Comments EGFR Routine 01/08/2024 9:46 AM ABRASIVE MIXER HELPER Fatigue, unspecified type DIFFERENTIAL AUTO Routine 01/08/2024 9:4 6 AM ABRASIVE MIXER HELPER Fatigue, unspecified type CBC WITH AUTO DIFFERENTIAL Routine 01/08/2024 9:46 AM ABRASIVE MIXER HELPER Fatigue, unspecified type VITAMIN D 25 HYDROXY Routine 01/08/2024 9:46 AM ABRASIVE MIXER HELPER Fatigue, unspecified type TSH Routine 01/08/2024 9:46 AM ABRASIVE MIXER HELPER Fatigue, unspecified type MAGNESIUM Routine 01/08/2024 9:46 AM ABRASIVE MIXER HELPER Fatigue, unspecified type HEMOGLOBIN A1C Routine 01/08/2024 9:46 AM ABRASIVE MIXER HELPER Diabetes mellitus screening VITAMIN B12 Routine 01/08/2024 9:46 AM ABRASIVE MIXER HELPER Fatigue, unspecified type COMPREHENSIVE METABOLIC PANEL Routine 01/08/2024 9:46 AM ABRASIVE MIXER HELPER Fatigue, unspecified type documented in this encounter Results * eGFR (01/08/2024 9:46 AM ABRASIVE MIXER HELPER) [facility] eGFR 107 mL/min/1. 73 m2 SHERLY LEE Comment: Interpretive Data Reference Interval Normal ?>/= 90 mL/min/1.73m2 Mildly decreased* ? 60 - 89 mL/min/1.73m2 Mildly to moderately decreased ?45 - 59 mL/min/1.73m2 Moderately to severely decreased ??30 - 44 mL/min/1.73m2 Severely decreased ?15 - 29 mL/min/1.73m2 Kidney Failure ?< 15 ??mL/min/1.73m2 *Relative to young adult level Estimated glomerular filtration rate is determined by the 2020 CKD-EPI equation recommended by the National Kidney Foundation (A Unifying Approach to GFR Estimation: Recommendations of the NKF-ASK Task Force on Reassessing the Inclusion of Race in Diagnosing Kidney Disease, JASN 2020). The CKD-EPI equation should not be used for patients with unstable renal function and has not been validated in children and those over 70. Current interpretive data was last reviewed 2021. Blood 01/08/2024 9:46 AM ABRASIVE MIXER HELPER 01/08/2024 10:03 AM ABRASIVE MIXER HELPER Rita GONZÁLES LAB BLOOD ORDERABLES Final Result [facility] [address] [facility] Department [place] [address] * Differential, auto (01/08/2024 9:46 AM ABRASIVE MIXER HELPER) Pathologist [facility] Neutrophil abs 2.9 1.5 - 6.5 K/cumm [facility] Imm gran abs 0.0 0.0 - 0.1 K/cumm [facility] Lymphocyte abs 1.4 0.8 - 3.3 K/cumm [facility] Monocyte abs 0.6 0.2 - 0.8 K/cumm [facility] Eosinophil abs 0.1 0.0 - 0.5 K/cumm [facility] Basophil abs 0.0 0.0 - 0.1 K/cumm [facility] Neutrophil pct 58.1 % [facility] Comment: Interpretive Data Percent cell count reference ranges are not reported, since discordance with absolute values may lead to misinterpretation of CBC data. Current Interpretive Data was last revised on 2018. Imm gran pct 0.2 % [facility] Comment: Interpretive Data Percent cell count reference ranges are not reported, since discordance with absolute values may lead to misinterpretation of CBC data. Current Interpretive Data was last revised on 2018. Lymphocyte pct 27.7 % [facility] Comment: Interpretive Data Percent cell count reference ranges are not reported, since discordance with absolute values may lead to misinterpretation of CBC data. Current Interpretive Data was last revised on 2018. Monocyte pct 12.4 % [facility] Comment: Interpretive Data Percent cell count reference ranges are not reported, since discordance with absolute values may lead to misinterpretation of CBC data. Current Interpretive Data was last revised on 2018. Eosinophil pct 1.0 % [facility] Comment: Interpretive Data Percent cell count reference ranges are not reported, since discordance with absolute values may lead to misinterpretation of CBC data. Current Interpretive Data was last revised on 2018. Basophil pct 0.6 % [facility] Comment: Interpretive Data Percent cell count reference ranges are not reported, since discordance with absolute values may lead to misinterpretation of CBC data. Current Interpretive Data was last revised on 2018. Blood 01/08/2024 9:46 AM ABRASIVE MIXER HELPER 01/08/2024 10:03 AM ABRASIVE MIXER HELPER Rita GONZÁLES LAB BLOOD ORDERABLES Final Result Performing Organization Address [facility] Co de Phone Number [address] [address] * (ABNORMAL) Vitamin D 25 hydroxy (01/08/2024 9:46 AM ABRASIVE MIXER HELPER) Vitamin D 25-OH 20.0(L) 30.0 - 80.0 ng/mL [facility] Blood 01/08/2024 9:46 AM ABRASIVE MIXER HELPER 01/08/2024 10:03 AM ABRASIVE MIXER HELPER Result [facility] Rita GONZÁLES LAB BLOOD ORDERABLES Final Result Performing Organization Address [facility] Co de Phone Number [address] [place] [address] * Vitamin B12 (01/08/2024 9:46 AM ABRASIVE MIXER HELPER) Vitamin B12 492 230 - 1,250 pg/mL [facility] Blood 01/08/2024 9:46 AM ABRASIVE MIXER HELPER 01/08/2024 10:03 AM ABRASIVE MIXER HELPER Rita GONZÁLES LAB BLOOD ORDERABLES Final Result Performing Organization Address [facility] Co de Phone Number [address] [place] [address] * TSH (01/08/2024 9:46 AM ABRASIVE MIXER HELPER) Thyroid Stimulating Hormone 0.71 0.30 - 4.20 mcIUnit/mL [facility] Blood 01/08/2024 9:46 AM ABRASIVE MIXER HELPER 01/08/2024 10:03 AM ABRASIVE MIXER HELPER Rita GONZÁLES LAB BLOOD ORDERABLES Final Result Performing Organization Address [facility] de Phone Number [address] [employer] [place] [address] * Magnesium (01/08/2024 9:46 AM ABRASIVE MIXER HELPER) Pathologist [facility] Magnesium 2.0 1.4 - 2.5 mg/dL [facility] Blood 01/08/2024 9:46 AM ABRASIVE MIXER HELPER 01/08/2024 10:03 AM ABRASIVE MIXER HELPER Result [facility] Rita GONZÁLES LAB BLOOD ORDERABLES Final Result Performing Organization Address [facility] de Phone Number [address] [place] [address] * Hemoglobin A1c (01/08/2024 9:46 AM ABRASIVE MIXER HELPER) Pathologist [facility] Hgb A1C 5.3 4.0 - 5.6 % [facility] Estimated Average Glucose 105 mg/dL [facility] Comment: The ADA recommends reporting an estimated Average Glucose (eAG) with all Hemoglobin A1c results using the equation derived from a study of 507 normal and diabetic adults. ??Minority populations were underrepresented and children were not included. ?? (Diabetes Care 31:9055-4058, 2008). ??The eAG is not equivalent to a fasting glucose. Blood 01/08/2024 9:46 AM ABRASIVE MIXER HELPER 01/08/2024 10:03 AM ABRASIVE MIXER HELPER Rita GONZÁLES LAB BLOOD ORDERABLES Final Result Performing Organization Address [facility] de Phone Number [address] [place] [address] * (ABNORMAL) Comprehensive metabolic panel (01/08/2024 9:46 AM ABRASIVE MIXER HELPER) Sodium 137 135 - 145 mmol/L [facility] Potassium, pl 4.3 3.3 - 4.9 mmol/L [facility] Chloride 105 97 - 110 mmol/L [facility] CO2 23 22 - 32 mmol/L [facility] Anion gap 9 2 - 15 mmol/L [facility] BUN 12 6 - 25 mg/dL [facility] Creatinine 0.76 0.60 - 1.10 mg/dL [facility] Glucose 82 70 - 199 mg/dL [facility] Comment: Interpretive Data Fasting glucose >/= [...] 2022. Calcium 8.8 8.5 - 10.3 mg/dL [facility] Bilirubin, total <0.2 0.1 - 1.2 mg/dL [facility] Protein, pl 7.0 6.5 - 8.5 g/dL [facility] Albumin 4.4 3.5 - 5.0 g/dL [facility] Alk phos 38(L) 40 - 130 Units/L [facility] ALT 9 7 - 45 Units/L [facility] AST 17 10 - 45 Units/L [facility] Blood 01/08/2024 9:46 AM ABRASIVE MIXER HELPER 01/08/2024 10:03 AM ABRASIVE MIXER HELPER us Rita GONZÁLES LAB BLOOD ORDERABLES Final Result [facility] Department [place] [address] * CBC with auto differential (01/08/2024 9:46 AM ABRASIVE MIXER HELPER) WBC 5.0 3.8 - 9.9 K/cumm [facility] Hgb 13.7 11.9 - 15.5 g/dL [facility] Hct 40.9 35.6 - 45.5 % [facility] Plt 186 150 - 400 K/cumm [facility] MPV 10.7 9.1 - 12.3 fL [facility] RBC 4.39 3.90 - 5.20 M/cumm [facility] MCV 93.2 81.3 - 96.4 fL [facility] MCH 31.2 27.1 - 33.3 pg [facility] MCHC 33.5 32.3 - 35.7 g/dL [facility] RDW CV 12.1 11.1 - 14.9 % [facility] RDW SD 41.5 35.7 - 48.1 fL [facility] NRBC abs 0.00 0.00 - 0.01 K/cumm [facility] Blood 01/08/2024 9:46 AM ABRASIVE MIXER HELPER 01/08/2024 10:03 AM ABRASIVE MIXER HELPER us Rita GONZÁLES LAB BLOOD ORDERABLES Final Result Performing Organization Address City/State/[facility] Co de Phone Number SHERLY LEE [address] [facility] Department [place] [address] documented in this encounter Visit Diagnoses Diagnosis Fatigue, unspecified type Diabetes mellitus screening Screening for diabetes mellitus documented in this encounter Care Teams Nuclear Plant Instrument Technician Relationship Specialty Start Date End Date Rita Sykes PA [address] [place] [address] PCP - General Internal Medicine 04/05/21 documented as of this encounter
--- OUTSIDE RECORDS SUMMARY | 2024-11-20 17:05 | XMS_ITS | Encounter Summary ---
Author Organization [facility] Address [address] [place] [address] Phone Care Team Providers Care Time Study Technician Name Role Phone Rita Sykes Primary Care Provider +1- [phone] Encounter Details Date Type Department Care Team (Late st Contact Info) Description 05/13/2022 Documentation [facility] Ophthalmology [address] [facility] 6th [place] [address] [place] [address] [place] [address] [address] [place] [address] Social History Tobacco Use Types Packs/Day Years [...] as of this encounter Progress Notes * Joy Sotelo MD - 05/13/2022 12:43 PM CDT I have personally-reviewed neuroimaging for this patient. MRI brain and orbits w/wo contrast was normal (05/12/2022). This means that, like we discussed at her appointment, we will offer full field ERG. documented in this encounter Plan of Treatment Not on file documented as of this encounter Visit Diagnoses Not on filedocumented in this encounter Care Teams Time Study Technician Relationship Specialty Start Date End Date Rita Sykes PA [address] [address] PCP - General Internal Medicine 04/05/21 documented as of this encounter
--- OUTSIDE RECORDS SUMMARY | 2024-11-20 17:05 | XMS_ITS | Encounter Summary ---
Author Organization [facility] Address [address] [place] [address] Phone Care Team Providers Care Delicatessen Department Manager Name Role Phone Rita Sykes Primary Care Provider +1- [phone] Reason for Visit * Reason Onset Date Comments Scheduling Appointments 04/17/2022 Encounter Details Date Type Department Care Team (Late st Contact Info) Description 04/17/2022 Telephone [facility] Ophthalmology [address] [place], [place] [id number] [place] [address] [place] [id number] Scheduling Appointments Social History Tobacco Use Types [...] Telephone Encounter - Erin Jung B.A. - 04/17/2022 3:07 PM CDT Pt would like to be called at some point to get MRI scheduled, it looks like she was reaching out since has not heard back Pt scheduled for MRI see appt desk * Telephone Encounter - Dayday Ambrosio CNA - 04/17/2022 2:57 PM CDT Pt called and stated that she is waiting for a call back for MRI scheduling. Best contact # is [phone] documented in this encounter Plan of Treatment Not on file documented as of this encounter Visit Diagnoses Not on filedocumented in this encounter Care Teams Delicatessen Department Manager Relationship Specialty Start Date End Date Rita Sykes PA [address] [place] [address] PCP - General Internal Medicine 04/05/21 documented as of this encounter
--- OUTSIDE RECORDS SUMMARY | 2024-11-20 17:05 | XMS_ITS | Encounter Summary ---
Author Organization [facility] Healthcare Address [address] [place] [address] Care Team Providers Care Materials Research Engineer Name Role Phone Rita Sykes Primary Care Provider +1- [phone] Encounter Details Date Type Department Care Team (Latest Contact Info) Description 01/08/2024 9:50 AM HOGSHEAD WEIGHER - 01/08/2024 11:59 PM HOGSHEAD WEIGHER Hospital Encounter [facility] Diagnostic Imaging [address] [place] [address] Flank pain Discharge Disposition: Discharge to home or self care Social History Tobacco Use Types Packs/Day Years [...] on file documented as of this encounter Medications at Time of Discharge clonazePAM (KlonoPIN) 0.5 mg tabletIndications:A nxiety Take 1 tablet (0.5 mg total) by mouth 3 (three) times a day as needed for anxiety 90 tablet 09/04/2023 ciprofloxacin (CIPRO) 250 mg tablet Take 1 tablet (250 mg total) by mouth 2 (two) times a day for 7 days 14 tablet 01/08/2024 4 dextroamphetamine-a mphetamine (ADDERALL) 20 mg tabletIndications:A ttention deficit hyperactivity disorder (ADHD), predominantly inattentive type Take 1 tablet (20 mg total) by mouth 2 (two) times a day 60 tablet 09/04/[address] (CYMBALTA) 30 mg capsule 12/30/2023 4 fluticasone propionate (FLONASE) 50 mcg/actuation nasal spray Administer 2 sprays into each nostril daily 1 each 2 08/14/2022 4 mirtazapine (REMERON) 15 mg tablet TAKE 1 TABLET BY MOUTH ONCE A DAY AT BEDTIME 01/07/2024 4 traZODone (DESYREL) 100 mg tabletIndications:I nsomnia, unspecified type Take 1 tablet (100 mg total) by mouth nightly 90 tablet 09/04/2023 4 documented as of this encounter Discharge Disposition Disposition Code Departure Means Destination Discharge to home or self care documented in this encounter Plan of Treatment Not on file documented as of this encounter Procedures Procedure Name Priority Date/Time Associated Diagnosis Comments XR KUB Schedule RAJESH, Read RAJESH (Appt Today, Awaiting Results) 01/08/2024 10:04 AM HOGSHEAD WEIGHER Flank pain documented in this encounter Results * XR Kub (01/08/2024 10:04 AM HOGSHEAD WEIGHER) Anatomical Region Laterality Modality Body, Abdomen N/A Computed Radiogr aphy 01/08/2024 10:4 7 AM HOGSHEAD WEIGHER Narrative 01/08/2024 10:52 AM HOGSHEAD WEIGHER EXAM DESCRIPTION: ?? XR KUB REASON FOR [...] 10:52 AM - Electronically signed by ??Raffi MENDEZ D: ??01/08/2024 10:52 AM T: Report ID: [id number] Reading Location: ??[id number] Procedure Note Raffi Santos MD - 01/08/2024 [...] 10:52 AM - Electronically signed by Raffi MENDEZ T: Report ID: [id number] Reading Location: [id number] us Rita GONZÁLES IMG XR PROCEDURES Final Re sult documented in this encounter Visit Diagnoses Diagnosis Flank pain Abdominal pain, unspecified site documented in this encounter Care Teams Materials Research Engineer Relationship Specialty Start Date End Date Rita Sykes PA [address] [facility] [address] [place] [address] PCP - General Internal Medicine 5/14/21 documented as of this encounter
--- OUTSIDE RECORDS SUMMARY | 2024-11-20 17:05 | XMS_ITS | Encounter Summary ---
Author Organization [facility] Medical Group Address [address] [facility] [address] [place] [address] Care Team Providers Care Precision Filer Hand Name Role Phone Rita Sykes Primary Care Provider +1- [phone] Reason for Visit * Reason Onset Date Comments Appointment Request 08/14/2022 Encounter Details Date Type Department Care Team (Late st Contact Info) Description 08/14/2022 Telephone [facility] Family Medicine [address] [facility] [address] [place] [address] Rita Sykes PA [address] [place] [address] Appointment Request Social History Tobacco Use Types Packs/Day Years Used Date Smoking Tobacco: Never Smokeless Tobacco: Never AUDIT-C Answer Date Recorded Q1: How often do you have a drink containing alcohol? Never 08/14/2022 Q2: How many drinks containi ng alcohol do you have on a typical day when you are drinking? Patient does not drink Q3: How often do you have si x or more drinks on one occasion? Never 08/14/2022 PHQ-2 Answer Date Recorded PHQ-2 Total Score (If total score is 3 or more points, staff should administer the PHQ-9) 0 08/14/2022 Comments Unknown Sex and Gender Information Value Date Recorded Sex Assigned at Not on file Legal Sex Female 9:13 AM CDT Gender Identity Not on file Sexual Orientation Not on file documented as of this encounter Miscellaneous Notes * Telephone Encounter - Rita Sykes PA - 08/14/2022 1:20 PM CDT Patient seen 08/14 by video * Telephone Encounter - Ly Greene - 08/14/2022 8:34 AM CDT Appointment Request What visit type does the patient need? Visit Type: Established Patient What is the reason for the visit? Ear pain, headache, throat hurts, congestion. Her currently has a double ear infection.No fever What is the reason we were unable to schedule the appointment? Current appointment availability didnot meet patient's need. Soonest opening was 10-03-2022 , due to COVID policy and symptoms sending request. If applicable, was a nurse practitioner or other provider offered? N/A Caller's Callback #: [phone] Additional Comments: None Does message need to be routed? Yes-Action Needed documented in this encounter Plan of Treatment Not on file documented as of this encounter Visit Diagnoses Not on filedocumented in this encounter Care Teams Precision Filer Hand Relationship Specialty Start Date End Date Rita Sykes PA [address] [facility] [address] [place] [address] PCP - General Internal Medicine 04/05/21 documented as of this encounter
--- OUTSIDE RECORDS SUMMARY | 2024-11-20 17:05 | XMS_ITS | Encounter Summary ---
Author Organization [facility] Address [address] [facility] [address] [place] [address] Care Team Providers Care Pressing Machine Operator Name Role Phone Rita Sykes Primary Care Provider +1- [phone] Reason for Visit * Reason Onset Date Comments Rash 10/14/2022 Encounter Details Date Type Department Care Team (Late st Contact Info) Description 10/14/[address] [facility] Medical [facility] Family Medicine [address] [place] [address] Rita Sykes PA [address] [address] [place] [address] Social History Tobacco Use Types [...] Telephone Encounter - Sally Pereira LPN - 10/14/2022 10:47 AM MACHINE PECAN GATHERER Addressing on my chart INE PECAN GATHERER * Telephone Encounter - Vijaya Peoples RN - 10/14/2022 10:40 AM MACHINE PECAN GATHERER Access Center Nurse Triage: Last office visit 08/14/22 Patient's daughter has hand foot and mouth . This is the 2nd time this year she has had it. She has been seen by supervisor pipe finishing for it. Patient noticed her rash on her hands this morning. Rash is on both but primarily on the left. Rashis not itchy. It is raised with small tiny blisters. See pictures sent via [employer] message. She took a benadryl and it helped a little bit. It is painful to the touch. Patient isn't running a fever. She has no other symptoms. No same day availability in the office this week. Please advise. Reason for Disposition Painful rash with multiple small blisters grouped together (i.e., dermatomal distribution or 'band'or 'stripe') Protocols used: Rash or Redness - [id number] INE PECAN GATHERER * Telephone Encounter - Vijaya Peoples RN - 10/14/2022 10:31 AM MACHINE PECAN GATHERER Regarding: Left hand rash ----- Message from Artie James sent at 10/14/2022 8:23 AM MACHINE PECAN GATHERER ----- Symptom Based Call Chief Complaint: left hand rash Did you review 911/Red Flag List?Yes Duration: today Why was appointment not scheduled? declined Caller's Callback #: [phone] Additional Comments: daughter currently has hand foot and mouth Does message need to be routed? Yes-Action Needed INE PECAN GATHERER documented in this encounter Plan of Treatment Not on file documented as of this encounter Visit Diagnoses Not on filedocumented in this encounter Care Teams Pressing Machine Operator Relationship Specialty Start Date End Date Rita Sykes PA [address] [place] [address] PCP - General Internal Medicine 04/05/21 documented as of this encounter
--- OUTSIDE RECORDS SUMMARY | 2024-11-20 17:05 | XMS_ITS | Encounter Summary ---
Author Organization [facility] Healthcare Address [address] [place] [address] Care Team Providers Care Sanitation Supervisor Name Role Phone Rita Sykes Primary Care Provider +1- [phone] Reason for Visit * Reason Onset Date Comments Recommendation Request 05/16/2024 Encounter Details Date Type Department Care Team (Late st Contact Info) Description 05/16/2024 Telephone [facility] Family Medicine [address] [place] [address] Rita Sykes PA [address] [address] [place] [address] Recommendation Request Social History Tobacco [...] Telephone Encounter - Sally Pereira LPN - 05/16/2024 11:12 AM CDT Patient scheduled for office visit to see provider regarding back pain * Telephone Encounter - Cris Fenton - 05/16/2024 8:40 AM CDT Recommendation Request Note: This request is for a specialty recommendation, not an insurance referral. Specialty: Back Specialist Why does the patient want to go to this specialist? 8-12 weeks ago threw her back out attempting toleft her daughter, been having pain in her lower back area Additional Comments/Concerns: Just recently she was trying to running and believes she injured it again. Does message need to be routed? Yes-Action Needed documented in this encounter Plan of Treatment Not on file documented as of this encounter Visit Diagnoses Not on filedocumented in this encounter Care Teams Sanitation Supervisor Relationship Specialty Start Date End Date Rita Sykes PA [address] [address] PCP - General Internal Medicine 04/05/21 documented as of this encounter
--- OUTSIDE RECORDS SUMMARY | 2024-11-20 17:05 | XMS_ITS | Encounter Summary ---
Author Organization [facility] Healthcare Address [address] [place] [address] Care Team Providers Care Full Fashioned Garment Knitter Name Role Phone Rita Sykes Primary Care Provider +1- [phone] Encounter Details Date Type Department Care Team (Late st Contact Info) Description 01/12/2024 Telephone [facility] Family Medicine [address] [place] [address] Rita Sykes PA [address] [address] [place] [address] Social History Tobacco Use Types [...] encounter Miscellaneous Notes * Telephone Encounter - Lucero Almaguer MA - 01/12/2024 8:33 AM OPHTHALMIC DISPENSER Spoke w/ pt this morning and advised her of (Neg) Urine Culture results. Pt states she is doing well. Also advised her she had left her coat in the office, pt states she will stop by to pick it up. HALMIC DISPENSER * Telephone Encounter - Lucero Almaguer MA - 01/12/2024 8:33 AM OPHTHALMIC DISPENSER ----- Message from ELIECER Moody sent at 01/10/2024 8:11 PM OPHTHALMIC DISPENSER ----- Let patient know her urine did not show an infection. Has her symptoms improved/resolved? If they persist, may need to consider additional imaging. HALMIC DISPENSER documented in this encounter Plan of Treatment Not on file documented as of this encounter Visit Diagnoses Not on filedocumented in this encounter Care Teams Full Fashioned Garment Knitter Relationship Specialty Start Date End Date Rita Sykes PA [address] [facility] [address] [place] [address] PCP - General Internal Medicine 04/05/21 documented as of this encounter
--- OUTSIDE RECORDS SUMMARY | 2024-11-20 17:05 | XMS_ITS | Encounter Summary ---
Author Organization [facility] Medical [facility] Address [address] [facility] [address] [place] [address] Care Team Providers Care Land Use Planner Name Role Phone Rita Sykes Primary Care Provider +1- [phone] Reason for Visit * Reason Onset Date Comments Covid 08/11/2023 Encounter Details Date Type Department Care Team (Late st Contact Info) Description 08/11/2023 Nurse Triage [facility] Family Medicine [address] [facility] [address] [place] [address] Suleman Osorio RN Social History Tobacco Use Types Packs/Day Years Used Date Smoking Tobacco: Never Smokeless Tobacco: Never AUDIT-C Answer Date Recorded Q1: How often do you have a drink containing alcohol? Never 06/12/2023 Q2: How many drinks containi ng alcohol do you have on a typical day when you are drinking? Patient does not drink Q3: How often do you have si x or more drinks on one occasion? Never 06/12/2023 PHQ-2 Answer Date Recorded PHQ-2 Total Score (If total score is 3 or more points, staff should administer the PHQ-9) 0 06/12/2023 Comments Unknown Sex and Gender Information Value Date Recorded Sex Assigned at Not on file Legal Sex Female 9:13 AM CDT Gender Identity Not on file Sexual Orientation Not on file documented as of this encounter Miscellaneous Notes * Telephone Encounter - Suleman Osorio RN - 08/11/2023 12:15 PM CDT Patient with Covid-19 exposure on 9/15. Developed runny nose/sore throat on 08/10 and today has bodyaches/sinus congestion, rapid covid test is negative at this time. Advised to repeat in 24-48 hours, start isolation due to symptoms and recent exposure. Isolation duration discussed per CDC guidelines. Denies sob/fever/chest pain. Call if worsening. Reason for Disposition [1] COVID-19 infection suspected by caller or triager AND [2] mild symptoms (cough, fever, or others) AND [3] negative COVID-19 rapid test Protocols used: Coronavirus (COVID-19) Diagnosed or [id number] * Telephone Encounter - Yokasta Mast RN - 08/11/2023 11:47 AM CDT Regarding: body aches, congestion ----- Message from Artie James sent at 08/11/2023 11:24 AM CDT ----- Symptom Based Call Caller's Callback #: [phone] Chief Complaint(s): mild symptoms congestion, body aches, runny nose, sore throat , headaches Duration: yesterday What type of symptom(s) is the patient experiencing? Non-Emergent. Is this a new or reoccurring symptom(s)? new What have you tried to help your symptom(s)? Nothing Why was appointment not scheduled? Appointment availability did not meet the patient's need. Additional Comments: patient was exposed to covid 2x but stated her test is coming back negative, would like to know covid protocols Does message need to be routed? Yes-Action Needed documented in this encounter Plan of Treatment Not on file documented as of this encounter Visit Diagnoses Not on filedocumented in this encounter Care Teams Land Use Planner Relationship Specialty Start Date End Date Rita Sykes PA [address] [facility] [address] [place] [address] PCP - General Internal Medicine 04/05/21 documented as of this encounter
--- OUTSIDE RECORDS SUMMARY | 2024-11-20 17:05 | XMS_ITS | Encounter Summary ---
Author Organization [facility] Healthcare Address [address] [place] [address] Care Team Providers Care Combatant Swimmer Name Role Phone Rita Sykes Primary Care Provider +1- [phone] Reason for Referral * MRI/CAT/PET Scan (Routine) - Closed Specialty Diagnoses / Procedures Referred By Barber cardenas Referred To Contact Radiology Diagnoses Visual disturbance of one eye Procedures MRI Brain Incl Orbits W Joy Landon MD [address] [address] Phone: tel: fax: [address] [address] Referral ID Status Reason Start Date Expiration Date Visits Re quested Visits Authorized [id number] Closed 05/05/2022 07/03/2022 1 1 Reason for Visit * MRI/CAT/PET Scan (Routine) - Closed Specialty Diagnoses / Procedures Referred By Barber cardenas Referred To Contact Radiology Diagnoses Visual disturbance of one eye Procedures MRI Brain Incl Orbits W Joy Landon MD [address] [address] Phone: tel: fax: [address] [address] Referral ID Status Reason Start Date Expiration Date Visits Re quested Visits Authorized [id number] Closed 05/05/2022 07/03/2022 1 1 Encounter Details Date Type Department Care Team (Latest Contact Info) Description 05/12/2022 4:41 PM CDT - 05/12/2022 11:59 PM CDT Hospital Encounter [facility] Imaging [address] [address] Visual disturbance of one eye Discharge Disposition: Discharge to home or self [...] Time of Discharge clonazePAM (KlonoPIN) 0.5 mg tablet Take 0.5 mg by mouth 3 (three) times a day as needed 12/13/2021 06/04/2023 dextroamphetamine -amphetamine (ADDERALL) 20 mg tablet Take 20 mg by mouth 2 (two) times a day 12/13/2021 06/04/2023 ziprasidone (GEODON) 20 mg capsule Take 20 mg by mouth 12/13/2021 06/05/2023 documented as of this encounter Discharge Disposition Disposition Code Departure Means Destination Discharge to home or self care documented in this encounter Plan of Treatment Not on file documented as of this encounter Procedures Procedure Name Priority Date/Time Associated Diagnosis Comments MRI BRAIN INCL ORBITS W WO CONTRAST Schedule Routine, Read Routine (OP Routine) 05/12/2022 5:59 PM CDT Visual disturbance of one eye documented in this encounter Results * MRI Brain Incl Orbits W WO Contrast (05/12/2022 5:59 PM CDT) Anatomical Region Laterality Modality Head and Neck N/A Magnetic Resonan ce 05/13/2022 11:0 3 AM CDT Impressions 05/13/2022 12:14 PM CDT Normal MRI of the orbits. No MRI findings to account for the patient's symptoms. Dictated by: Jordan Mckenna M.D. The radiology attending physician has personally reviewed this study, and had reviewed and/or edited this written report and agrees with it. Electronically signed by: Claudette Strong M.D. Narrative 05/13/2022 12:14 PM CDT EXAMINATION: Magnetic resonance imaging (MRI) of the brain and brainstem without and with contrast Magnetic resonance imaging (MRI) of the orbits without and with contrast HISTORY: Right eye vision changes. TECHNIQUE: Multiplanar multi-weighted MRI of the brain and brainstem was performed without and with ??intravenous contrast using the orbital protocol. This included multiplanar high resolution imaging of the orbits and optic nerves using separate data set acquisitions. Contrast information: 16 mL Gadoterate Meglumine COMPARISON: ??None available. FINDINGS: Both globes are normal in shape and outline without proptosis. The extraocular muscles are normal in size. No intra- or extraconal masses are present. The intraconal fat is normal. The orbital rowley are intact. Both lacrimal glands are normal in appearance. Meckel's cave appears normal on each side. The carotid artery flow voids are normal. The optic chiasm is normal. The suprasellar cistern is normal. There are no areas of abnormal contrast enhancement. The scalp and calvarium are normal. The superior sagittal sinus demonstrates normal venous flow. The corpus callosum is normal in shape and signal intensity. The posterior fossa is unremarkable. The pituitary and sella are normal. The brainstem and craniocervical junction are unremarkable. Diffusion weighted images reveal no hyperintensities to suggest acute cerebral infarction. The ventricles are normal in size and position without evidence of hydrocephalus. The paranasal sinuses are normal. The visualized portions of the mastoids are unremarkable. Normal flow voids are demonstrated in the carotid arteries and basilar artery. Procedure Note Claudette Strong MD - 05/13/2022 EXAMINATION: Magnetic resonance imaging (MRI) of the brain and brainstem without and with contrast Magnetic resonance imaging (MRI) of the orbits without and with contrast HISTORY: Right eye vision changes. TECHNIQUE: Multiplanar multi-weighted MRI of the brain and brainstem was performed without and with intravenous contrast using the orbital protocol. This included multiplanar high resolution imaging of the orbits and optic nerves using separate data set acquisitions. Contrast information: 16 mL Gadoterate Meglumine COMPARISON: None available. FINDINGS: Both globes are normal in shape and outline without proptosis. The extraocular muscles are normal in size. No intra- or extraconal masses are present. The intraconal fat is normal. The orbital rowley are intact. Both lacrimal glands are normal in appearance. Meckel's cave appears normal on each side. The carotid artery flow voids are normal. The optic chiasm is normal. The suprasellar cistern is normal. There are no areas of abnormal contrast enhancement. The scalp and calvarium are normal. The superior sagittal sinus demonstrates normal venous flow. The corpus callosum is normal in shape and signal intensity. The posterior fossa is unremarkable. The pituitary and sella are normal. The brainstem and craniocervical junction are unremarkable. Diffusion weighted images reveal no hyperintensities to suggest acute cerebral infarction. The ventricles are normal in size and position without evidence of hydrocephalus. The paranasal sinuses are normal. The visualized portions of the mastoids are unremarkable. Normal flow voids are demonstrated in the carotid arteries and basilar artery. IMPRESSION: Normal MRI of the orbits. No MRI findings to account for the patient's symptoms. Dictated by: Jordan Mckenna M.D. The radiology attending physician has personally reviewed this study, and had reviewed and/or edited this written report and agrees with it. Electronically signed by: Claudette Strong M.D. Joy Sotelo MD [facility] MRI PROCEDURES Final Re sult documented in this encounter Visit Diagnoses Diagnosis Visual disturbance of one eye documented in this encounter Administered Medications Inactive Administered Medications - up to 3 most recent administrations Medication Order MAR Action Action Date Dose Rate Site gadoterate meglumine 0.5 mmol/mL injection 20 mL 20 mL, intravenous, Once in imaging, contrast, Starting on Thu05/12/22 at 1650, For 1 dose Contrast Given 05/12/2022 5:12 PM CDT 16 mL documented in this encounter Care Teams Combatant Swimmer Relationship Specialty Start Date End Date Rita Sykes PA [address] [facility] [address] [place] [address] PCP - General Internal Medicine 04/05/21 documented as of this encounter
--- OUTSIDE RECORDS SUMMARY | 2024-11-20 17:05 | XMS_ITS | Encounter Summary ---
Author Organization [facility] Healthcare Address [address] [place] [address] Care Team Providers Care Mainstreaming Facilitator Name Role Phone Rita Sykes Primary Care Provider +1- [phone] Reason for Visit * Reason Onset Date Comments UTI 12/29/2023 Encounter Details Date Type Department Care Team (Late st Contact Info) Description 12/29/2023 Nurse Triage [facility] Family Medicine [address] [place] [address] Rita Sykes PA [address] [place] [address] Social History Tobacco Use Types [...] Telephone Encounter - Rita Sykes PA - 12/30/2023 7:33 AM SENIOR TECHNICAL ARCHITECT Note. If symptoms dont resolve, I will need to see patient in the office as a culture/sensitivity was notdone as not part of protocol OR TECHNICAL ARCHITECT * Telephone Encounter - Berna Avendano RN - 12/29/2023 4:48 PM CST Images from the original note were not included. Erika Childs reports urinary frequency, pain, and pinkish colored urine that began today. Denies fever/chills, vomiting, or flank pain. Pt reports previous UTI was years ago and presented with similar symptoms. [facility] Uncomplicated UTI Standing Order Guideline - Urination pain female Erika Childs 1990 Primary Care Provider Rita Sykes PA Date and Time of call 12/29/2023 4:49 PM Last office visit: 11/30/23 Next office visit: 06/01/24 Onset: 12/29/23 Symptoms include: urinary frequency, pain, and pinkish colored urine PATIENT DOES NOT HAVE: Recurrent UTI Fever, chills, sweats Flank pain History of kidney stones in the past 3 months Indwelling urinary stent or catheter placed in the past 3 months Uncontrolled Diabetes with no A1C on file or last A1C more than 15 months ago Most recent A1C (in the last 15 months) greater than 9.0 Most recent estimated glomerular filtration rate and date of that test result 95 (03/24/22) Lab Results Component Value Date CREATININE 0.83 03/24/2022 Lab Results Component Value Date HGBA1C 5.2 03/24/2022 Allergies as of 12/29/2023 - Reviewed 12/29/2023 Allergen Reaction Noted Aripiprazole Nausea only 12/08/2022 Prescription called in by triage nurse to patient's preferred pharmacy based upon a standing order to treat uncomplicated urinary tract infection. [facility] [place], [place] - [address] [facility] [address] PATIENT INSTRUCTIONS: Hydrate to thirst, overly concentrated urine can be irritating, and excessive fluid consumption does not shorten the duration of symptoms. Anti-inflammatory medications can help with symptoms. Recommended dosage of ibuprofen is 400mg up to 3 times daily, or naproxen 500mg twice daily. DO NOT TAKE NSAIDS if you have chronic kidney disease, congestive heart failure, coronary artery disease, or if you physician has previously instructed to avoid. Call back if: Your symptoms (pain, frequency, urgency) do not improve by day 3 on antibiotics. You become worse (develop fever, flank pain, etc.) Encounter forwarded to Rita Sykes PA's clinical team as AKASH. Nurse called in [facility] nurse UTI standing order. Medication pended as phone in in current encounter. Reason for Disposition Blood in urine (red, pink, or tea-colored) Protocols used: Urination Pain - [id number] OR TECHNICAL ARCHITECT * Telephone Encounter - Berna Avendano RN - 12/29/2023 4:35 PM CST Regarding: Severe pain with urination with blood in urine ----- Message from Juliana Tamayo MA sent at 12/29/2023 4:15 PM SENIOR TECHNICAL ARCHITECT ----- Symptom Based Call Chief Complaint(s): Severe pain with urination with blood in urine Duration: x1 day What type of symptom(s) is the patient experiencing? Red Flag. Is the patient concerned they are experiencing a medical emergency requiring an ambulance? No Additional Comments: pt calling c/o severe pain with urination with blood in urine. She is also having frequent urination. She also states that she feels like she has to urinate every hour. She has been drinking a lot of water to help. Does message need to be routed? Yes-Action Needed OR TECHNICAL ARCHITECT documented in this encounter Plan of Treatment Not on file documented as of this encounter Visit Diagnoses Not on filedocumented in this encounter Additional Health Concerns Infection Onset Date Last Indicated Resolved Time COVID: Suspected 07/12/2024 07/12/2024 07/12/2024 1:19 PM CDT COVID: Suspected 09/01/2024 09/01/2024 09/01/2024 9:25 AM CDT COVID: Suspected 09/01/2024 09/01/2024 09/01/2024 9:28 AM CDT documented as of this encounter Care Teams Mainstreaming Facilitator Relationship Specialty Start Date End Date Rita Sykes PA [address] [address] PCP - General Internal Medicine 04/05/21 documented as of this encounter
--- OUTSIDE RECORDS SUMMARY | 2024-11-20 17:05 | XMS_ITS | Encounter Summary ---
Author Organization [facility] Address [address] [place] [address] Phone Care Team Providers Care Tail Edger Name Role Phone Rita Sykes Primary Care Provider +1- [phone] Reason for Referral * Diagnostic Imaging (Routine) - Closed Specialty Diagnoses / Procedures Referred By Barber t Referred To Contact Diagnoses Visual disturbance of one eye Procedures Oleary Visual Field - OU - Both Eyes Joy Sotelo MD [address] [address] Phone: tel: fax: [facility] (All Locations) Referral ID Status Reason Start Date Expiration Date Visits Re quested Visits Authorized [id number] Closed 04/10/2022 05/10/2023 1 1 * MRI/CAT/PET Scan (Routine) - Closed Specialty Diagnoses / Procedures Referred By Barber cardenas Referred To Contact Radiology Diagnoses Visual disturbance of one eye Procedures MRI Brain Incl Orbits W WO Contrast Joy Sotelo MD [address] [address] Phone: tel: fax: [address] [address] Referral ID Status Reason Start Date Expiration Date Visits Re quested Visits Authorized [id number] Closed 05/05/2022 07/03/2022 1 1 * Diagnostic Imaging (Routine) - Closed Specialty Diagnoses / Procedures Referred By Barber cardenas Referred To Contact Diagnoses Unspecified disorder of visual pathways Encounter for observation for other suspected diseases and conditions ruled out Procedures OCT, Retina [place] [address] [place] [address] Phone: tel: fax: [facility] (All Locations) Referral ID Status Reason Start Date Expiration Date Visits Re quested Visits Authorized [id number] Closed 04/10/2022 05/10/2023 1 1 * Diagnostic Imaging (Routine) - Closed Specialty Diagnoses / Procedures Referred By Barber cardenas Referred To Contact Diagnoses Unspecified disorder of visual pathways Encounter for observation for other suspected diseases and conditions ruled out Procedures OCT, Optic Nerve - OU - Both Eyes Joy Sotelo MD [address] [address] Phone: tel: fax: [facility] (All Locations) Referral ID Status Reason Start Date Expiration Date Visits Re quested Visits Authorized [id number] Closed 04/10/2022 05/10/2023 1 1 * Diagnostic Imaging (Routine) - Closed Specialty Diagnoses / Procedures Referred By Barber cardenas Referred To Contact Diagnoses Unspecified disorder of visual pathways Encounter for observation for other suspected diseases and conditions ruled out Procedures Oleary Visual Field - [place] [address] [place] [address] Phone: tel: fax: [facility] (All Locations) Referral ID Status Reason Start Date Expiration Date Visits Re quested Visits Authorized [id number] Closed 04/10/2022 05/10/2023 1 1 Reason for Visit * Reason Comments enlarges blind spot * Consultation (Routine) - Closed Specialty Diagnoses / Procedures Referred By Barber t Referred To Contact Ophthalmology Diagnoses Enlarged blind spot of right eye Rita Sykes PA [address] [place] [address] Phone: tel: fax: Parth Schreiber MD [address] [facility] [place] [address] [place] [address] Phone: tel: fax: Referral ID Status Reason Start Date Expiration Date V isits Requested Visits Authorized [id number] Closed Specialty Services Required 04/01/2022 05/01/2023 8 8 Encounter Details Date Type Department Care Team (Late st Contact Info) Description 04/10/2022 10:00 AM CDT Office Visit [facility] Ophthalmology [address] [facility] [address] [place] [phone] Joy Sotelo MD [address] [address] Visual disturbance of one eye (Primary Dx); Unspecified disorder of visual pathways; Encounter for observation for other suspected diseases and conditions ruled out Social History Tobacco Use Types Packs/Day Years [...] Progress Notes * Joy Sotelo MD - 04/10/2022 10:00 AM CDT NEURO-OPHTHALMOLOGY NEW PATIENT CONSULTATION Erika Childs is a 31 y.o. female with hx LASIK OU (2017). I was asked to see this patient in neuro-ophthalmology consultation by ELIECER Moody for evaluation of vision change OD. Assessment: Visual disturbance OD. HVF 10-2 showed trace misses and trace generalized depression OD (FT 33 dB). Otherwise normal findings, including normal visual acuity, color vision, and full HVF 24-2. She has normal appearance of the optic discs OU. OCT shows normal RNFL and ganglion cell complex thickness OU. Plan/ Recommendations: - MRI brain and orbits w/wo contrast. - If the above study is normal, next step will be full field ERG. - Neuro-ophthalmology clinic follow-up in 3 months with HVF 10-2 and OCT, sooner if new/ worsening symptoms. History of Present Illness: In late February/ early March 2022, around 2 weeks ago, she noticed a visual disturbance OD. She describes that while reading her phone, she noticed a tiny little grayed out sioux almost. She also described this as almost like a camera flash. She initially thought this may be related to a migraine, but the next day, she noticed the tiny visula distortion has persisted--while looking at her pipette the tick jose was grayed out or blurred out. When she covers her right eye, her vision OS is normal. She went to the ED and had a normal CT scan. This visual disturbance is stationary ( in the center of my vision wherever I look ) and has been stable since she noticed it. She has also noticed that compared to OS, the vision OD seems tian washed. She has noticed some pain with moving the eyes ( like a soreness when looking side to side). Around , she reports that an MRI was recommended to rule out multiple sclerosis as a causeof numbness/ paresthesias, but was deferred due to . In late 2020/ 2021, around 4-6 months ago, she has started to get migraine headaches and her vision in the OD eye began worsening. Fortunately, the vision OD improved with updated refraction. Around 4 months ago, she had an episode of a fuzzy line developing in her vision, associated with full body tingling, and a pre-syncopal sensation ( almost like my whole vision was going to go white and I was going to pass out ). She reports that she started to notice as I was staring at my computerscreen, there was a line of blurriness that started to happen. Then...my body got tingling she felt as if she was moments away from passing out and she developed a severe headache. Review of Prior Records: This is my first visit with this patient, and thus I have reviewed her relevant prior records and summarized them as follows: - 04/02/2015: MRI brain w/wo contrast, reportedly performed to evaluate syncope, reportedly showed Symmetric mild prominence of tissue in the floor of the third ventricle at the tuber cinereum of thehypothalamus. 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 Normal anatomic variant is less likely. Differential consideration of glioma is also considered less likely.Recommend follow-up brain MRI (to include coronal T2 and SPGR sequences) in six months to confirm stability. Consider correlation with EEG (images not available for review). - 03/24/2022: Reported dot OD/ letters desaturated. VAsc 20/25 OD, 20/20 OS; and normal optic discsOU. Current Medical Problems: Patient Active Problem List Diagnosis ??? Skin lesion ??? Annual physical exam ??? Stress ??? Bacterial conjunctivitis of left eye ??? BMI 27.0-27.9,adult ??? Diabetes mellitus screening ??? Lipid screening ??? Fatigue Past Surgical History: Past Surgical History: Procedure Laterality Date ??? REFRACTIVE SURGERY Bilateral 2017 Medications: Current Outpatient Medications on File Prior to Visit Medication Sig Dispense Refill ??? clonazePAM (KlonoPIN) 0.5 mg tablet Take 0.5 mg by mouth 3 (three) times a day as needed ??? dextroamphetamine-amphetamine (ADDERALL) 20 mg tablet Take 20 mg by mouth 2 (two) times a day ??? ziprasidone (GEODON) 20 mg capsule Take 20 mg by mouth ??? [DISCONTINUED] ciprofloxacin (CILOXAN) 0.3 % ophthalmic ointment Administer 1 drop into the right eye every 2 (two) hours Administer 1 drop, every 2 hours, while awake, for 2 days. Then 1 drop, every 4 hours, while awake, for the next 5 days. (Patient not taking: Reported on 04/10/2022) 3.5 g 0 No current facility-administered medications on file prior to visit. Allergies: No Known Allergies Family History: Family History Problem Relation Age of Onset ??? No Known Problems Mother ??? No Known Problems Father Social History: Social History Tobacco Use Smoking Status Never Smoker Smokeless Tobacco Never Used Physical Exam: Base Eye Exam Visual Acuity (Snellen - Linear) Right Left Dist cc 20/20 20/20 Correction: Glasses Tonometry (Tonopen, 10:39 AM) Right Left Pressure 14 16 Pupils Dark Light Shape React APD Right 3.5 3 Round Minimal None Left 3.5 3 Round Minimal None Visual Dunne (Counting fingers) Left Right Full Full OD: does not note any blurring or missing pieces centrally Extraocular Movement Right Left Full, Ortho Full, Ortho Normal saccades bilaterally, without adduction lag Neuro/Psych Oriented x3: Yes Mood/Affect: Normal Dilation Both eyes: 1.0% Mydriacyl, 2.5% Phenylephrine @ 10:39 AM Additional Tests Color Right Left Ishihara 10/03 10/03 Slit Lamp and Fundus Exam External Exam Right Left External Normal Normal Slit Lamp Exam Right Left Lids/Lashes Normal Normal Conjunctiva/Sclera White and quiet White and quiet Cornea Clear Clear Anterior Chamber Deep and quiet Deep and quiet Iris Round and reactive Round and reactive Lens Clear Clear Vitreous Normal Normal Fundus Exam Right Left Disc Normal Normal C/D Ratio 0.1 0.1 Macula Normal Normal Vessels Normal Normal Periphery Normal Normal Testing: Oleary Visual Field - OU - Both Eyes OD: Trace nonspecific central misses, MD -2.14 dB, foveal threshold 35 dB; 0/14 FL, 5% FP, 0% FN OS: Trace nonspecific inferior misses, MD -1.42 dB, foveal threshold 35 dB; 2/12 FL, 10% FP, 0% FN OCT, Optic Nerve - OU - Both Eyes Component Value Flag Ref Range Units Status RNFL OS 98 micrometers RNFL OD 95 micrometers Right Eye Average RNFL thickness 95 micrometers. Left Eye Average RNFL thickness 98 micrometers. Notes Normal mean RNFL thickness OU (Performed on Meservey Spectralis OCT) OCT, Retina - OU - Both Eyes Right Eye Findings include normal observations. Left Eye Findings include normal observations. Notes Posterior pole scan of ganglion cell layer thickness (GCL only, Meservey Spectralis measurement): Mean ganglion cell layer thickness: 31 microns OU (On Meservey Spectralis OCT. Comparison was made to available published normative data: Prosper et al., Transl Vis Sci Technol, 2018, PMID [id number]) Oleary Visual Field - OU - Both Eyes HVF 10-2: OD: Trace misses, trace decrease in foveal threshold (33 dB) OS: Full, normal foveal threshold (37 dB) Visit Diagnoses: Diagnoses and all orders for this visit: Visual disturbance of one eye (Primary) - Ambulatory referral to Ophthalmology - MRI Brain Incl Orbits W WO Contrast; Future - Oleary Visual Field - OU - Both Eyes Unspecified disorder of visual pathways - Oleary Visual Field - OU - Both Eyes - OCT, Optic Nerve - OU - Both Eyes - OCT, Retina - OU - Both Eyes Encounter for observation for other suspected diseases and conditions ruled out - Oleary Visual Field - OU - Both Eyes - OCT, Optic Nerve - OU - Both Eyes - OCT, Retina - OU - Both Eyes Joy Sotelo MD Division of Neuro-Ophthalmology Department of Ophthalmology and Visual Sciences Department of Neurology [facility] documented in this encounter Plan of Treatment Not on file documented as of this encounter Procedures Procedure Name Priority Date/Time Associated Diagnosis Comments OLEARY VISUAL FIELD - OU - BOTH EYES Routine 04/10/2022 12:32 PM CDT Visual disturbance of one eye OLEARY VISUAL FIELD - OU - BOTH EYES Routine 04/10/2022 11:32 AM CDT Unspecified disorder of visual pathways Encounter for observation for other suspected diseases and conditions ruled out OCT, RETINA - OU - BOTH EYES Routine 04/10/2022 11:31 AM CDT Unspecified disorder of visual pathways Encounter for observation for other suspected diseases and conditions ruled out OCT, OPTIC NERVE - OU - BOTH EYES Routine 04/10/2022 11:31 AM CDT Unspecified disorder of visual pathways Encounter for observation for other suspected diseases and conditions ruled out documented in this encounter Results * MRI [...] by: Claudette Strong M.D. Joy Sotelo MD [facility] MRI PROCEDURES Final Re sult * Oleary Visual Field - OU - Both Eyes (04/10/2022 12:32 PM CDT) Anatomical Region Laterality Modality Head Visual Field Narrative 04/10/2022 12:32 PM CDT HVF 10-2: OD: Trace misses, trace decrease in foveal threshold (33 dB) OS: Full, normal foveal threshold (37 dB) us Joy Sotelo MD OPH VISUAL FIELD Final Re sult * Oleary Visual Field - OU - Both Eyes (04/10/2022 11:32 AM CDT) Anatomical Region Laterality Modality Head Visual Field Narrative 04/10/2022 11:32 AM CDT OD: Trace nonspecific central misses, MD -2.14 dB, foveal threshold 35 dB; 0/14 FL, 5% FP, 0% FN OS: Trace nonspecific inferior misses, MD -1.42 dB, foveal threshold 35 dB; 2/12 FL, 10% FP, 0% FN us Joy Sotelo MD OPH VISUAL FIELD Final Re sult * OCT, Retina - OU - Both Eyes (04/10/2022 11:31 AM CDT) Anatomical Region Laterality Modality Head Optical Coherenc e Tomography Narrative 04/10/2022 11:31 AM CDT Right Eye Findings include normal observations. Left Eye Findings include normal observations. Notes Posterior pole scan of ganglion cell layer thickness (GCL only, Meservey Spectralis measurement): ??Mean ganglion cell layer thickness: 31 microns OU (On Meservey Spectralis OCT. Comparison was made to available published normative data: ??Prosper et al., Transl Vis Sci Technol, 2018, PMID [id number]) us Joy Sotelo MD OPHTH TOMOGRAPHY Final Resu lt * OCT, Optic Nerve - OU - Both Eyes (04/10/2022 11:31 AM CDT) RNFL OS 98 micrometers CONTINUUM RNFL OD 95 micrometers CONTINUUM Anatomical Region Laterality Modality Head Optical Coherenc e Tomography Narrative 04/10/2022 11:31 AM CDT Right Eye Average RNFL thickness 95 micrometers. Left Eye Average RNFL thickness 98 micrometers. Notes Normal mean RNFL thickness OU (Performed on Meservey Spectralis OCT) us Joy Sotelo MD OPHTH TOMOGRAPHY Final Resu lt documented in this encounter Visit Diagnoses Diagnosis Visual disturbance of one eye- Primary Unspecified disorder of visual pathways Encounter for observation for other suspected diseases and conditions ruled out Visual disturbance of one eye documented in this encounter Discontinued Medications Medication Sig Discontinue Reason Start Date End Da te ciprofloxacin (CILOXAN) 0.3 % ophthalmic ointment Administer 1 drop into the right eye every 2 (two) hours Administer 1 drop, every 2 hours, while awake, for 2 days. Then 1 drop, every 4 hours, while awake, for the next 5 days. Therapy completed 01/02/2022 04/10/2022 documented as of this encounter Orders Outpatient Referral Count Last Ordered Date Fir st Ordered Date AMB REFERRAL TO OPHTHALMOLOGY 1 04/10/2022 documented in this encounter Eye Exam Visual Acuity (Snellen - Linear) Right eye Left eye Dist cc 20/20 20/20 Correction: Glasses Tonometry (Tonopen, 10:39 AM) Right eye Left eye Pressure 14 16 Pupils Dark Light Shape React APD Right eye 3.5 3 Round Minimal None Left eye 3.5 3 Round Minimal None Visual Dunne (Counting fingers) Right eye Left eye Full Full OD: does not note any blurring or missing pieces centrally Extraocular Movement Right eye Left eye Full, Ortho Full, Ortho Normal saccades bilaterally, without adduction lag Neuro/Psych Oriented x3: Yes Mood/Affect: Normal Dilation Both eyes: 1.0% Mydriacyl, 2 .5% Phenylephrine @ 10:39 AM Color Right eye Left eye Ishihara 10/03 10/03 External Exam Right eye Left eye External Normal Normal Slit Lamp Exam Right eye Left eye Lids/Lashes Normal Normal Conjunctiva/Sclera White and quiet White and sam et Cornea Clear Clear Anterior Chamber Deep and quiet Deep and quiet Iris Round and reactive Round and kaylie ctive Lens Clear Clear Vitreous Normal Normal Fundus Exam Right eye Left eye Disc Normal Normal C/D Ratio 0.1 0.1 Macula Normal Normal Vessels Normal Normal Periphery Normal Normal Care Teams Tail Edger Relationship Specialty Start Date End Date Rita Sykes PA [address] [address] PCP - General Internal Medicine 04/05/21 documented as of this encounter
--- OUTSIDE RECORDS SUMMARY | 2024-11-20 17:05 | XMS_ITS | Encounter Summary ---
Author Organization [facility] Address [address] [place] [address] Phone Care Team Providers Care Scale Clerk Name Role Phone Rita Sykes Primary Care Provider +1- [phone] Encounter Details Date Type Department Care Team (Late st Contact Info) Description 07/02/2022 Telephone [facility] Ophthalmology [address] [facility] [address] [place] [id number] Joy Sotelo MD [address] [facility] [address] [place] [address] Social History Tobacco Use Types [...] encounter Miscellaneous Notes * Telephone Encounter - Anamaria Kent - 07/02/2022 1:17 PM CDT The office at [facility] has relocated to [address] [address] Just 5 minutes from the old location. [place] [address] The phone number has remained the same. If you are need of a wheel chair call [phone] upon arrival and someone will bring a wheelchairto you. lvm w date/time documented in this encounter Plan of Treatment Not on file documented as of this encounter Visit Diagnoses Not on filedocumented in this encounter Care Teams Scale Clerk Relationship Specialty Start Date End Date Rita Sykes PA [address] [facility] [address] [place] [address] PCP - General Internal Medicine 04/05/21 documented as of this encounter
--- OUTSIDE RECORDS SUMMARY | 2024-11-20 17:05 | XMS_ITS | Encounter Summary ---
Author Organization [facility] Address [address] [place] [address] Care Team Providers Care Implementation Engineer Name Role Phone Rita Sykes Primary Care Provider [phone]- [phone] Reason for Visit * Reason Comments Sore Throat Nasal Congestion Encounter Details Date Type Department Care Team (Late st Contact Info) Description 08/14/2022 1:00 PM CDT Telemedicine [facility] Family Medicine [address] [place] [address] Rita Sykes PA [address] [place] [address] Acute non-recurrent frontal sinusitis (Primary Dx) Social History Tobacco Use Types [...] on file documented as of this encounter Ordered Prescriptions Prescription Sig Dispense Quantity Refills Last Filled Start Date End Date fluticasone propionate (FLONASE) 50 mcg/actuation nasal spray Administer 2 sprays into each nostril daily 1 each 2 08/14/2022 4 amoxicillin (AMOXIL) 875 mg tablet Take 1 tablet (875 mg total) by mouth 2 (two) times a day for 10 days 20 tablet 08/14/2022 2 documented in this encounter Progress Notes * Rita Sykes PA - 08/14/2022 1:00 PM CDT Images from the original note were not included. Subjective/Objective Patient ID: Erika Childs is a 32 y.o. female. Chief Complaint Sore Throat and Nasal Congestion Sore Throat This is a new problem. The current episode started yesterday. The problem has been gradually worsening. Neither side of throat is experiencing more pain than the other. There has been no fever. The pain is at a severity of 4/10. Associated symptoms include congestion, coughing, ear pain, headaches,a hoarse voice and a plugged ear sensation. Pertinent negatives include no abdominal pain, diarrhea, drooling, ear discharge, neck pain, shortness of breath, stridor, swollen glands, trouble swallowing or vomiting. She has had no exposure to strep or mono. This was a telemedicine visit with the patient which took place via real-time video connection withChartsNow (now MusicQubed) or Atavist. During the visit, I was located in my [place], [place] office and the patientwas located at home in the [facility]. The patient visit started at 1:18p and ended at 1:28pm. My total encounter time, spent on the day of service was 10 minutes which was spent in the activities documented in the note. This includes time spent prior to the visit and after the visit in direct care of the patient. This time does not include time spent in any separately reportable services. The patient has been informed that the visit may not be secure and acknowledged the information. I have explained the option of participating in a telephone or video visit during the COVID-19 public health emergency to the patient. After being given an opportunity to ask questions about and discuss this type of visit, the patient verbally consented to proceeding with the telephone/video visit.The patient understands that this service replaces an office visit and they may be billed and/or responsible for any applicable copayments. Symptoms started 08/13 Daugther has been sick for a week. Has croup/ear infection. Ears are sore and popping. YOUNGBLOOD, Sorethroat Cough - non-productive. COVID at home today was negative. Review of Systems HENT: Positive for congestion, ear pain, hoarse voice and sore throat. Negative for drooling, ear discharge and trouble swallowing. Respiratory: Positive for cough. Negative for shortness of breath and stridor. Gastrointestinal: Negative for abdominal pain, diarrhea and vomiting. Musculoskeletal: Negative for neck pain. Neurological: Positive for headaches. See HPI There were no vitals filed for this visit. Physical Exam Vitals and nursing note reviewed. Constitutional: Appearance: Normal appearance. HENT: Head: Normocephalic and atraumatic. Eyes: Comments: Pupils are equal Pulmonary: Effort: Pulmonary effort is normal. Skin: General: Skin is dry. Neurological: Mental Status: She is alert. Psychiatric: Mood and Affect: Mood normal. Assessment/Plan Diagnoses and all orders for this visit: Acute non-recurrent frontal sinusitis (J01.10) (Primary) Assessment & Plan: Start antibiotic, antihistamine (Claritin OR Zyrtec), Mucinex 12hour and Steroid nasal spray (Flonase). Push fluids. Rest. Supportive care. If sxs worsen or don\'t improve, pt is to followup in the office. Other orders - amoxicillin (AMOXIL) 875 mg tablet; Take 1 tablet (875 mg total) by mouth 2 (two) times a day for10 days - fluticasone propionate (FLONASE) 50 mcg/actuation nasal spray; Administer 2 sprays into each nostril daily *This note is dictated using [employer] voice recognition software, variances in spelling and vocabulary are possible and unintentional.* Rita Sykes PA-C documented in this encounter Miscellaneous Notes * Assessment & Plan Note - Rita Sykes PA - 08/31/2022 8:23 PM CDT Associated Problem(s): Acute non-recurrent frontal sinusitis (Resolved 06/12/2023) Start antibiotic, antihistamine (Claritin OR Zyrtec), Mucinex 12hour and Steroid nasal spray (Flonase). Push fluids. Rest. Supportive care. If sxs worsen or don\'t improve, pt is to followup in the office. documented in this encounter Plan of Treatment Not on file documented as of this encounter Visit Diagnoses Diagnosis Acute non-recurrent frontal sinusitis- Primary documented in this encounter Care Teams Implementation Engineer Relationship Specialty Start Date End Date Rita Sykes PA [address] [place] [address] PCP - General Internal Medicine 04/05/21 documented as of this encounter
--- OUTSIDE RECORDS SUMMARY | 2024-11-20 17:05 | XMS_ITS | Encounter Summary ---
Author Organization [facility] Address [address] [place] [address] Phone Care Team Providers Care Monogram Maker Name Role Phone Rita Sykes Primary Care Provider [phone]- [phone] Reason for Visit * Reason Onset Date Comments Test Results 05/14/2022 Encounter Details Date Type Department Care Team (Late st Contact Info) Description 05/14/2022 Telephone [facility] Ophthalmology [address] [place] [address] [place] [address] [place] [address] [address] [place] [address] Test Results Social History Tobacco Use Types Packs/Day Years [...] encounter Miscellaneous Notes * Telephone Encounter - Ella Cortes COA - 05/14/2022 1:40 PM CDT .I called and spoke with Loni I have reviewed the normal imaging results with the patient. The next step is to have an FFERG and to keep f/u appt. ERG scheduled for 06/03/22 at 3 pm I have confirmed the appt time and date of 07/10/22 The patient has no questions at this time for Dr. Sotelo. I sent a staff message to [place] for ERG insurance auth. * Telephone Encounter - Ella Cortes COA - 05/14/2022 1:40 PM CDT ----- Message from Joy Sotelo MD sent at 05/13/2022 12:44 PM CDT ----- Regarding: Please contact with normal imaging results Please contact to let her know that her imaging has been read by the radiologist, and that I have personally reviewed it as well. The imaging was normal. This means that, like we discussed at her appointment, we would like to schedule a full field ERG to evaluate the function of the retina. Please find out if she would like to schedule. Please confirm her follow up appointment date and time. documented in this encounter Plan of Treatment Not on file documented as of this encounter Visit Diagnoses Not on filedocumented in this encounter Care Teams Monogram Maker Relationship Specialty Start Date End Date Rita Sykes PA [address] [place] [address] PCP - General Internal Medicine 04/05/21 documented as of this encounter
--- OUTSIDE RECORDS SUMMARY | 2024-11-20 17:05 | XMS_ITS | Encounter Summary ---
Author Organization [facility] Address [address] [place] [address] Care Team Providers Care Consulting Solution Manager Name Role Phone Rita Sykes Primary Care Provider +1- [phone] Encounter Details Date Type Department Care Team (Latest Contact Info) Description 01/29/2024 4:58 PM PAPER SORTER - 01/29/2024 11:59 PM PAPER SORTER Hospital Encounter [facility] [place] [address] Screening examination for STD (sexually transmitted disease); Well woman exam Discharge Disposition: Discharge to home or self [...] as needed for anxiety 90 tablet 09/04/2023 dextroamphetamine-a mphetamine (ADDERALL) 20 mg tabletIndications:A ttention deficit hyperactivity disorder (ADHD), predominantly inattentive type Take 1 tablet (20 mg total) by mouth 2 (two) times a day 60 tablet 09/04/2023 4 dextroamphetamine-a mphetamine XR (ADDERALL XR) 20 mg 24 hr capsule TAKE 1 CAPSULE BY MOUTH TWICE A DAY (SWALLOW WHOLE) 01/13/[address] (CYMBALTA) 30 mg capsule [...] Procedure Name Priority Date/Time Associated Diagnosis Comments HIGH RISK HPV DNA DETECTION WITH GENOTYPING Routine 01/29/2024 3:14 PM PAPER SORTER Well woman exam N. GONORRHOEAE/C. TRACHOMATIS AMPLIFICATION Routine 01/29/2024 3:14 PM PAPER SORTER Screening examination for STD (sexually transmitted disease) TRICHOMONAS VAGINALIS PCR Routine 01/29/2024 3:14 PM PAPER SORTER Screening examination for STD (sexually transmitted disease) PAP AND HIGH RISK HPV, REFLEX TO GENOTYPING Routine 01/29/2024 3:13 PM PAPER SORTER Well woman exam documented in this encounter Results * High Risk HPV DNA Detection with Genotyping (Molecular component) (01/29/2024 3:14 PM PAPER SORTER) HPV HR 16 Not Detected Not Detected [facility] Comment:Testing performed by : [facility], [address] [place]., [address] HPV HR 18 Not Detected Not Detected [facility] Comment:Testing performed by : [facility], [address] [place]., [address] HPV HR Non 16/18 Not Detected Not [...] this test have been verified by the [facility] Molecular Infectious Disease laboratory. Correlate with separately reported cytology results, as applicable. Interpretive data last revised 23 Testing performed by: [facility], [address] [place]., [address] Endocervical 01/29/2024 3:14 PM PAPER SORTER 02/02/2024 9:38 AM CDT Narrative [facility] - 02/03/2024 4:46 AM CDT Clinical history and diagnosis->screening Testing type->Screening Last menstrual period (date if known)->iud Ly Gonsalez MD LAB BODY FLUIDS AND STOOL S ORDERABLES Final Result [facility] [address] [facility] Department [place] [address] [facility] * N. gonorrhoeae/C. trachomatis Amplification Endocervical (01/29/2024 3:14 PM PAPER SORTER) C. trachomatis Not Detected [facility] Comment:Testing performed by : [facility], [address] [place]., [address] N. gonorrhoeae Not Detected [facility] Comment: Interpretive Data This assay detects Chlamydia trachomatis and Neisseria gonorrhoeae by nucleic acid amplification testing (NAAT). This assay has been cleared by the [facility] Food and Drug administration. The performance characteristics of this test have been verified by the [facility] Molecular Infectious Disease laboratory. The performance characteristics of this test have not been evaluated in individuals less than 14 years of age. Current Interpretive Data was last revised on 2023. Testing performed by: [facility], [address] [place]., [address] Endocervical (None) 01/29/20 3:14 PM PAPER SORTER 01/29/2024 11:30 PM PAPER SORTER Ly Gonsalez MD LAB MICROBIOLOGY - GENERA L ORDERABLES Final Result [facility] [address] [facility] Department [place] [address] [facility] * Trichomonas vaginalis PCR Endocervical (01/29/2024 3:14 PM PAPER SORTER) Trichomonas DNA Not Detected [facility] Comment: Interpretive Data This assay detects Trichomonas vaginalis by nucleic acid amplification testing (NAAT). This assay has been cleared by the [place] Food and Drug administration. The performance characteristics of this test have been verified by the [facility] Molecular Infectious Disease laboratory. The performance of this test has not been evaluated in individuals less than 18 years of age. ?? Current Interpretive Data was last revised on 2023. Testing performed by: [facility], [address] [place]., [address] Endocervical 01/29/2024 3:14 PM PAPER SORTER 01/29/2024 11:30 PM PAPER SORTER us Ly Gonsalez MD LAB MICROBIOLOGY - GENERA L ORDERABLES Final Result [facility] [address] [facility] Department [place] [address] [facility] * Pap and High Risk HPV and Genotyping (Cytology Component) (01/29/2024 3:13 PM PAPER SORTER) Thin prep (Pap test) 01/29/2024 3:13 PM PAPER SORTER 02/01/2024 8:04 AM CDT Narrative PATHOLOGY [facility] - 02/05/2024 8:06 AM CDT EPIC results best viewed via link to PDF [facility] [place] [address] Note to Patients: This report may contain [...] Gender: ??F : ??1990 (Age: 33) Address: ??[address] [place] [address] ??[id number] Hospital #: ??[id number] Service: ??DEFAULT Location: ?? Patient Type: ??[facility] SPECIMEN Taken: ??01/29/2024 Received: ??02/01/2024 Accessioned: ??02/01/2024 [...] this test have been verified by the [facility] Molecular Infectious Disease laboratory. Correlate with [...] clinical information and biopsy results as indicated. [facility] Clinical Laboratory Improvement Amendments (CLIA) mandate that cytologic and histologic results be correlated for laboratory quality control checker & improvement standards. ??FOR ALL HIGH-GRADE CASES [...] determined by the Surgical Pathology Department at [facility] as part of an ongoing ict quality assurance engineer program and in compliance with federally mandated [...] determined by the Surgical Pathology Department of [facility]. ??It has not been cleared or approved by the [place] Food and Drug Administration. Ly Gonsalez MD LAB CYTOLOGY ORDERABLES F inal Result PATHOLOGY [facility] documented in this encounter Visit Diagnoses Diagnosis Screening examination for STD (sexually transmitted disease) Well woman exam Routine general medical examination at a health care facility documented in this encounter Care Teams Consulting Solution Manager Relationship Specialty Start Date End Date Rita Sykes PA [address] [address] [address] [facility] [place] [address] PCP - General Internal Medicine 04/05/21 documented as of this encounter
--- OUTSIDE RECORDS SUMMARY | 2024-11-20 17:05 | XMS_ITS | Encounter Summary ---
Author Organization [facility] Medical [facility] Address [address] [place] [address] Care Team Providers Care Stem Roller Name Role Phone Rita Sykes Primary Care Provider +1- [phone] Reason for Visit * Reason Comments chronic concerns Pt presents today fo r an annual visit. Pt reports that she is needing phsyc medication filled. Pt reports being in between doctors. Encounter Details Date Type Department Care Team (Latest Contact Info) Description 06/12/2023 9:30 AM CDT Office Visit [facility] Family Medicine [address] [place] [address] Rita Sykes PA [address] [facility] [address] [place] [address] Annual physical exam (Primary Dx); Anxiety; Insomnia, unspecified type; Attention deficit hyperactivity disorder (ADHD), predominantly inattentive type; BMI 23.0-23.9, adult Social History Tobacco Use Types Packs/Day [...] Sign Reading Time Taken Comments Blood Pressure 126/76 06/12/2023 10:02 AM CDT Pulse 85 06/12/2023 10:02 AM CDT Temperature 36.4 ??C (97.6 ??F) 06/12/2023 1 0:02 AM CDT Respiratory Rate - - Oxygen Saturation 99% 06/12/2023 10: 02 AM CDT Inhaled Oxygen Concentration - - Weight 67.9 kg (149 lb 12.8 oz) 023 10:02 AM CDT Height 170.2 cm (5' 7.01 ) 06/12/2023 1 0:02 AM CDT Body Mass Index 23.46 06/12/2023 10:02 AM CDT documented in this encounter Patient Instructions * Patient Instructions* Rita Sykes PA - 06/12/2023 9:30 AM CDT . documented in this encounter Ordered Prescriptions Prescription Sig Dispense Quantity Refills Last Filled Start Date End Date dextroamphetamine-a mphetamine (ADDERALL) 20 mg tabletIndications:A ttention deficit hyperactivity disorder (ADHD), predominantly inattentive type Take 1 tablet (20 mg total) by mouth 2 (two) times a day 60 tablet 06/12/2023 3 traZODone (DESYREL) 100 mg tabletIndications:I nsomnia, unspecified type Take 1 tablet (100 mg total) by mouth nightly 30 tablet 06/12/2023 3 clonazePAM (KlonoPIN) 0.5 mg tabletIndications:A nxiety Take 1 tablet (0.5 mg total) by mouth 3 (three) times a day as needed for anxiety 90 tablet 06/12/2023 3 documented in this encounter Progress Notes * Rita Sykes PA - 06/12/2023 9:30 AM CDT Images from the original note were not included. Subjective/Objective Patient ID: Erika Childs is a 32 y.o. female. Chief Complaint chronic concerns (Pt presents today for an annual visit. Pt reports that she is needing phsyc medication filled. Pt reports being in between doctors. ) HPI Patient presents for wellness exam and followup chronic concerns. Work is stressful -- [employer] -- is in meetings more than in the lab and this was disappointing. Feels dizzy and nervous to where she is going to pass out. Noting more migraines. Unsure if related to stress or problems getting her psych meds -- Psychiatrist -- seeing provider in [facility] She is no longer seeing her as too far away. Working on getting appointment local but having difficulty with finding provider taking new patients. -- Provided psychaitry today website. Ran out of meds so is feeling bad has been out of clonazepam for 2 days. I sent them to [facility] and she learned it needs to go to [facility] Pap - This year BCM -- IUD 2020 Tdap 08/2020 Review of Systems See HPI Vitals: 06/12/23 1002 BP: 126/76 BP Location: Left arm Patient Position: Sitting Pulse: 85 Temp: 36.4 ??C (97.6 ??F) TempSrc: Oral SpO2: 99% Weight: 67.9 kg (149 lb 12.8 oz) Height: 170.2 cm (5' 7.01 ) Physical Exam Vitals and nursing note [...] oriented to person, place, and time. Psychiatric: Comments: anxious Assessment/Plan Diagnoses and all orders for this visit: Annual physical exam (Z00.00) (Primary) Assessment & Plan: Encouraged healthy lifestyle, good nutrition and exercise. Encouraged Calcium and Vitamin D and weight bearing exercise for bone health. Reviewed immunizations Reviewed age appropirate screenings. Anxiety (F41.9) Assessment & Plan: Patient has been following with psychiatrist up near [place]. She is no longer able to see her. Trying to establish with a local psychiatrist but needs assistance with medications as she has been off her medications for a couple of days now. Tried sending the Klonopin to [facility] but this is not preferred by her insurance so need to have medicines sent to the local [facility]. Will send Klonopin trazodone in the Adderall. Reminded patient that I do not usually refill these so I do want her to get in with a psychiatrist to manage her psychiatric concerns. She is in agreement with the plan Orders: - clonazePAM (KlonoPIN) 0.5 mg tablet; Take 1 tablet (0.5 mg total) by mouth 3 (three) times a day as needed for anxiety Insomnia, unspecified type (G47.00) Assessment & Plan: Patient has been following with psychiatrist up near [place]. She is no longer able to see her. Trying to establish with a local psychiatrist but needs assistance with medications as she has been off her medications for a couple of days now. Tried sending the Klonopin to [facility] but this is not preferred by her insurance so need to have medicines sent to the local [facility]. Will send Klonopin trazodone in the Adderall. Reminded patient that I do not usually refill these so I do want her to get in with a psychiatrist to manage her psychiatric concerns. She is in agreement with the plan Attention deficit hyperactivity disorder (ADHD), predominantly inattentive type (F90.0) Assessment & Plan: Patient has been following with psychiatrist up near [place]. She is no longer able to see her. Trying to establish with a local psychiatrist but needs assistance with medications as she has been off her medications for a couple of days now. Tried sending the Klonopin to [facility] but this is not preferred by her insurance so need to have medicines sent to the local [facility]. Will send Klonopin trazodone in the Adderall. Reminded patient that I do not usually refill these so I do want her to get in with a psychiatrist to manage her psychiatric concerns. She is in agreement with the plan Orders: - dextroamphetamine-amphetamine (ADDERALL) 20 mg tablet; Take 1 tablet (20 mg total) by mouth 2 (two) times a day BMI 23.0-23.9, adult (Z68.23) Assessment & Plan: Weight/BMI is in healthy range. Continue healthy lifestyle to maintain. *This note is dictated using [employer] voice recognition software, variances in spelling and vocabulary are possible and unintentional.* Rita Sykes PA-C documented in this encounter Miscellaneous Notes * Assessment & Plan Note - Rita Sykes PA - 06/12/2023 4:08 PM CDT Associated Problem(s): Insomnia Patient has been following with psychiatrist up near [place]. She is no longer able to see her. Trying to establish with a local psychiatrist but needs assistance with medications as she has been off her medications for a couple of days now. Tried sending the Klonopin to [facility] but this is not preferred by her insurance so need to have medicines sent to the local [facility]. Will send Klonopin trazodone in the Adderall. Reminded patient that I do not usually refill these so I do want her to get in with a psychiatrist to manage her psychiatric concerns. She is in agreement with the plan * Assessment & Plan Note - Rita Sykes PA - 06/12/2023 4:08 PM CDT Associated Problem(s): Anxiety Patient has been following with psychiatrist up near [place]. She is no longer able to see her. Trying to establish with a local psychiatrist but needs assistance with medications as she has been off her medications for a couple of days now. Tried sending the Klonopin to [facility] but this is not preferred by her insurance so need to have medicines sent to the local [facility]. Will send Klonopin trazodone in the Adderall. Reminded patient that I do not usually refill these so I do want her to get in with a psychiatrist to manage her psychiatric concerns. She is in agreement with the plan * Assessment & Plan Note - Rita Sykes PA - 06/12/2023 4:06 PM CDT Associated Problem(s): Attention deficit hyperactivity disorder (ADHD), predominantly inattentive type Patient has been following with psychiatrist up near [place]. She is no longer able to see her. Trying to establish with a local psychiatrist but needs assistance with medications as she has been off her medications for a couple of days now. Tried sending the Klonopin to [facility] but this is not preferred by her insurance so need to have medicines sent to the local [facility]. Will send Klonopin trazodone in the Adderall. Reminded patient that I do not usually refill these so I do want her to get in with a psychiatrist to manage her psychiatric concerns. She is in agreement with the plan * Assessment & Plan Note - Rita Sykes PA - 06/12/2023 4:05 PM CDT Associated Problem(s): Annual physical exam (Resolved 01/08/2024) Encouraged healthy lifestyle, good nutrition and exercise. Encouraged Calcium and Vitamin D and weight bearing exercise for bone health. Reviewed immunizations Reviewed age appropirate screenings. * Assessment & Plan Note - Mercy Trent MA - 06/12/2023 10:06 AM CDT Associated Problem(s): BMI 24.0-24.9, adult (Resolved 05/16/2024) Weight/BMI is in healthy range. Continue healthy lifestyle to maintain. documented in this encounter Plan of Treatment Not on file documented as of this encounter Visit Diagnoses Diagnosis Annual physical exam- Primary Routine general medical examination at a health care facility Anxiety Anxiety state, unspecified Insomnia, unspecified type Attention deficit hyperactivity disorder (ADHD), predominantly inattentive type BMI 23.0-23.9, adult documented in this encounter Discontinued Medications Medication Sig Discontinue Reason Start Date End Da te clonazePAM (KlonoPIN) 0.5 mg tabletIndications:Anxiety Take 1 tablet (0.5 mg total) by mouth 3 (three) times a day as needed for anxiety Reorder 06/05/2023 06/12/2023 dextroamphetamine-ampheta mine (ADDERALL) 20 mg tabletIndications:Attenti on deficit hyperactivity disorder (ADHD), predominantly inattentive type Take 1 tablet (20 mg total) by mouth 2 (two) times a day Reorder 06/05/2023 06/12/2023 traZODone (DESYREL) 100 mg tabletIndications:Insomni a, unspecified type Take 1 tablet (100 mg total) by mouth nightly Reorder 06/05/2023 06/12/2023 documented as of this encounter Care Teams Stem Roller Relationship Specialty Start Date End Date Rita Sykes PA [address] [facility] [address] [place] [address] PCP - General Internal Medicine 04/05/21 documented as of this encounter
--- OUTSIDE RECORDS SUMMARY | 2024-11-20 17:05 | XMS_ITS | Encounter Summary ---
Author Organization [facility] Address [address] [place] [address] Phone Care Team Providers Care Power House Engineer Name Role Phone Rita Sykes Primary Care Provider +1- [phone] Reason for Visit * Reason Onset Date Comments reschedule appointment 07/09/2022 Encounter Details Date Type Department Care Team (Late st Contact Info) Description 07/09/2022 Telephone [facility] Ophthalmology [address] 6th [place] [address] [place] [address] [place] [address] 6 [place] [address] reschedule appointment Social History Tobacco Use Types Packs/Day Years [...] Telephone Encounter - Ella Cortes COA - 07/09/2022 1:33 PM CDT I sent the patient a [employer] message. * Telephone Encounter - Ella Cortes COA - 07/09/2022 9:[address] Sotelo's clinic is cancelled for 07/10/22. I called to reschedule patients appointment. She states that she was on an important phone call and would need to call back. This can be rescheduled for next available return with testing at . documented in this encounter Plan of Treatment Not on file documented as of this encounter Visit Diagnoses Not on filedocumented in this encounter Care Teams Power House Engineer Relationship Specialty Start Date End Date Rita Sykes PA [facility] [facility] [address] [place] [address] PCP - General Internal Medicine 04/05/21 documented as of this encounter
--- OUTSIDE RECORDS SUMMARY | 2024-11-20 17:06 | XMS_ITS | Encounter Summary ---
Author Organization [facility] Medical Group Address [address] [place] [address] Care Team Providers Care Tire Maintenance Technician Name Role Phone Rita Sykes Primary Care Provider +1- [phone] Encounter Details Date Type Department Care Team (Late st Contact Info) Description 05/21/2021 Orders Only [facility] Medical [facility] Family Medicine [address] [place] [address] Rita Sykes PA [address] [place] [address] Skin lesion (Primary Dx) Social History Tobacco Use Types [...] as of this encounter Visit Diagnoses Diagnosis Skin lesion- Primary Unspecified disorder of skin and subcutaneous tissue documented in this encounter Care Teams Tire Maintenance Technician Relationship Specialty Start Date End Date Rita Sykes PA [address] [address] PCP - General Internal Medicine 04/05/21 documented as of this encounter
--- OUTSIDE RECORDS SUMMARY | 2024-11-20 17:06 | XMS_ITS | Encounter Summary ---
Author Organization [facility] Address [address] [place] [address] Care Team Providers Care Milling Machinist Name Role Phone Rita Sykes Primary Care Provider +1- [phone] Encounter Details Date Type Department Care Team (Late st Contact Info) Description 07/16/2021 Telephone [facility] Family Medicine [address] [place] [address] Rita Sykes PA [address] [place] [address] Social History Tobacco Use Types [...] Telephone Encounter - Rita Sykes PA - 07/16/2021 5:05 PM CDT noted * Telephone Encounter - Sushant Flores MA - 07/16/2021 4:57 PM CDT Patient notified. Yes the patient is done with the thesis. She Passed!!! * Telephone Encounter - Rita Sykes PA - 07/16/2021 4:48 PM CDT This doesn't sound like a bacterial eye infection. It may be allergic. Get otc Zaditor (antihistamine eye drops). Will see if it helps with the sxs. If sxs persist, will refer to eye doctor. Is she completely done with her thesis? * Telephone Encounter - Anika Rojas LPN - 07/16/2021 12:19 PM CDT Spoke to patient. Reports s/s have consistently been in R eye. Denies discharge from eye as well assticky crusty eye. Reports R eye is only irritated and red. It does not itch. Confirmed with patient she has not tried any new makeup, face soap, facial moisturizers, etc. Also confirmed she has discarded makeup, wash clothes, etc from first dx of pink eye. Patient does report she has been using p reviously prescribed eye drops and it does help it feel less irritated . * Telephone Encounter - Rita Sykes PA - 07/16/2021 11:53 AM CDT Please call patient and get more information. What sxs is she having? * Telephone Encounter - Sushant Flores MA - 07/16/2021 11:28 AM CDT Patient called in about her eye. State since her last visit she has the pink eye 5 or 6 more time. She has been using the antibiotic eye drops that was prescribe by the provider. Patient want to know what should she do. documented in this encounter Plan of Treatment Not on file documented as of this encounter Visit Diagnoses Not on filedocumented in this encounter Care Teams Milling Machinist Relationship Specialty Start Date End Date Rita Sykes PA [address] [facility] [address] [place] [address] PCP - General Internal Medicine 04/05/21 documented as of this encounter
--- OUTSIDE RECORDS SUMMARY | 2024-11-20 17:06 | XMS_ITS | Encounter Summary ---
Author Organization [facility] Medical [facility] Address [address] [place] [address] Care Team Providers Care Outside Laborer Name Role Phone Rita Sykes Primary Care Provider +1- [phone] Reason for Visit * Reason Comments Weight Patient Encounter Details Date Type Department Care Team (Late st Contact Info) Description 05/16/2021 2:15 PM CDT Office Visit [facility] Family Medicine [address] [place] [address] Rita Sykes PA [address] [place] [address] Annual physical exam (Primary Dx); Skin lesion; Stress; BMI 28.0-28.9,adult Social History Tobacco Use Types Packs/Day Years [...] Sign Reading Time Taken Comments Blood Pressure 100/70 05/16/2021 2:23 PM CDT Pulse 54 05/16/2021 2:23 PM CDT Temperature 36.7 ??C (98 ??F) 05/16/2021 2:23 PM CDT Respiratory Rate - - Oxygen Saturation 97% 05/16/2021 2:23 PM CDT Inhaled Oxygen Concentration - - Weight 82.9 kg (182 lb 11.2 oz) 05/16/2021 2:23 PM CDT Height 170.2 cm (5' 7 ) 05/16/2021 2:23 PM CDT Body Mass Index 28.61 05/16/2021 2:23 PM CDT documented in this encounter Progress Notes * Rita Sykes PA - 05/16/2021 2:15 PM CDT Images from the original note were not included. Subjective/Objective Patient ID: Erika Childs is a 30 y.o. female. Chief Complaint Weight Patient HPI Patient presents for wellness and followup conjunctivitis. Completed the ciloxan and sxs resolved. -- Dr. Tricia Cuello at [facility]. No PIH and No GDM. Dec 2020 delivered first child. Breast pumping///with formula as needed. Good supply First LMP since deliver 2 weeks ago. Heavier than normal. 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 At times feels overwhelmed - just wants to getit done. Wants referral to Derm -- History of lesions that have been abnormal so needs rechecked. Mid epigastric pain -- Pain isn't really related to food. Denies problems during . Tdap- UTD FLU - UTD [employer] x 2 done Review of Systems Constitutional: Negative for fever. HENT: Negative for congestion. Respiratory: Negative for shortness of breath. Cardiovascular: Negative for chest pain. Gastrointestinal: Negative for constipation and diarrhea. Vitals: 05/16/21 1423 BP: 100/70 BP Location: Left arm Patient Position: Sitting Pulse: 54 Temp: 36.7 ??C (98 ??F) TempSrc: Oral SpO2: 97% Weight: 82.9 kg (182 lb 11.2 oz) Height: 170.2 cm (5' [...] Tenderness: There is no abdominal tenderness. Comments: midepigastric tenderness. Skin: General: Skin is warm and [...] health. Reviewed immunizations Reviewed age appropirate screenings. Skin lesion (L98.9) Assessment & Plan: Patient requests referral to derm for full skin evaluation. Orders: - Ambulatory referral to Dermatology; Future Stress (F43.9) Assessment & Plan: Pt has a lot of stress with school and new baby but Declines medication at this point. Encouraged good sleep hygeine, good nutrition and exercise. Will continue to monitor closely. Currently no suicidal or homicidal thoughts. Consider counseling. Reassess at next visit. Reviewed she may call at any time if desires medication or needs assistance. BMI 28.0-28.9,adult (Z68.28) Assessment & Plan: Weight/BMI is in healthy range. Continue healthy lifestyle to maintain. Rita Sykes PA-C documented in this encounter Miscellaneous Notes * Assessment & Plan Note - Rita Sykes PA - 05/18/2021 12:21 AM CDT Associated Problem(s): Annual physical exam (Resolved 01/08/2024) Encouraged healthy lifestyle, good nutrition and exercise. Encouraged Calcium and Vitamin D and weight bearing exercise for bone health. Reviewed immunizations Reviewed age appropirate screenings. * Assessment & Plan Note - Rita Sykes PA - 05/18/2021 12:19 AM CDT Associated Problem(s): Skin lesion Patient requests referral to derm for full skin evaluation. * Assessment & Plan Note - Rita Sykes PA - 05/18/2021 12:18 AM CDT Associated Problem(s): Stress (Resolved 06/12/2023) Pt has a lot of stress with school and new baby but Declines medication at this point. Encouraged good sleep hygeine, good nutrition and exercise. Will continue to monitor closely. Currently no suicidal or homicidal thoughts. Consider counseling. Reassess at next visit. Reviewed she may call at any time if desires medication or needs assistance. * Assessment & Plan Note - Sushant Flores MA - 05/16/2021 2:23 PM CDT Associated Problem(s): BMI 28.0-28.9,adult (Resolved 01/02/2022) Weight/BMI is in healthy range. Continue healthy lifestyle to maintain. documented in this encounter Plan of Treatment Not on file documented as of this encounter Visit Diagnoses Diagnosis Annual physical exam- Primary Routine general medical examination at a health care facility Skin lesion Unspecified disorder of skin and subcutaneous tissue Stress Other psychological or physical stress, not elsewhere classified BMI 28.0-28.9,adult documented in this encounter Discontinued Medications Medication Sig Discontinue Reason Start Date End Da te ciprofloxacin (CILOXAN) 0.3 % ophthalmic solution Administer 1 drop into the right eye every 2 (two) hours Administer 1 drop, every 2 hours, while awake, for 2 days. Then 1 drop, every 4 hours, while awake, for the next 5 days. Therapy completed 05/09/2021 05/16/2021 documented as of this encounter Care Teams Outside Laborer Relationship Specialty Start Date End Date Rita Sykes PA [address] [facility] [address] [place] [address] PCP - General Internal Medicine 04/05/21 documented as of this encounter
--- OUTSIDE RECORDS SUMMARY | 2024-11-20 17:06 | XMS_ITS | Encounter Summary ---
Author Organization [facility] Medical [facility] Address [address] [place] [address] Care Team Providers Care Braille Duplicating Machine Operator Name Role Phone Rita Sykes Primary Care Provider +1- [phone] Encounter Details Date Type Department Care Team (Late st Contact Info) Description 01/01/2022 Telephone [facility] Family Medicine [address] [place] [address] Rita Sykes PA [address] [place] [address] Social History Tobacco Use Types [...] encounter Miscellaneous Notes * Telephone Encounter - Anika Rojas LPN - 01/01/2022 12:51 PM SENIOR RADIATION PROTECTION TECHNICIAN error OR RADIATION PROTECTION TECHNICIAN documented in this encounter Plan of Treatment Not on file documented as of this encounter Visit Diagnoses Not on filedocumented in this encounter Care Teams Braille Duplicating Machine Operator Relationship Specialty Start Date End Date Rita Sykes PA [address] [place] [address] PCP - General Internal Medicine 04/05/21 documented as of this encounter
--- OUTSIDE RECORDS SUMMARY | 2024-11-20 17:06 | XMS_ITS | Encounter Summary ---
Author Organization [facility] Address [address] [place] [address] Care Team Providers Care Supervisor Crack Off Name Role Phone Rita Sykes Primary Care Provider +1- [phone] Reason for Visit * Reason Onset Date Comments Referral for Derm 05/16/2021 Encounter Details Date Type Department Care Team (Late st Contact Info) Description 05/16/2021 Telephone [facility] Family Medicine [address] [place] [address] Rita Sykes PA [address] [place] [address] Referral for Derm Social History Tobacco Use Types Packs/Day Years [...] Telephone Encounter - Latrice Jean MA - 05/21/2021 3:54 PM CDT Referral entered into [employer]. * Telephone Encounter - Anika Rojas LPN - 05/16/2021 3:24 PM CDT Patient would like referral for Derm to go to: Fela Pollard MD [facility] * Telephone Encounter - Sushant Flores MA - 05/16/2021 3:11 PM CDT Patient called in state the dermatology she was referral to does not accept her insurance. Will contact insurance to see which Dermatology she is able to see w/ in her network. documented in this encounter Plan of Treatment Not on file documented as of this encounter Visit Diagnoses Not on filedocumented in this encounter Care Teams Supervisor Crack Off Relationship Specialty Start Date End Date Rita Sykes PA [address] [facility] [place] [address] PCP - General Internal Medicine 04/05/21 documented as of this encounter
--- OUTSIDE RECORDS SUMMARY | 2024-11-20 17:06 | XMS_ITS | Encounter Summary ---
Author Organization [facility] Address [address] [place] [address] Care Team Providers Care Hand Quilter Name Role Phone Rita Sykes Primary Care Provider +1- [phone] Encounter Details Date Type Department Care Team (Late st Contact Info) Description 05/18/2021 Telephone [facility] Family Medicine [address] [place] [address] Rita Sykes PA [address] [place] [address] Social History Tobacco Use Types [...] Telephone Encounter - Rita Sykes PA - 05/21/2021 5:16 PM CDT noted * Telephone Encounter - Sushant Flores MA - 05/20/2021 12:46 PM CDT Pt state she has completed her thesis. * Telephone Encounter - Rita Sykes PA - 05/18/2021 12:02 AM CDT Please call patient and see if she finished writing her thesis!! If yes -- great job!! If not, get it done, she can do it!!! documented in this encounter Plan of Treatment Not on file documented as of this encounter Visit Diagnoses Not on filedocumented in this encounter Care Teams Hand Quilter Relationship Specialty Start Date End Date Rita Sykes PA [address] [address] [place] [address] PCP - General Internal Medicine 04/05/21 documented as of this encounter
--- OUTSIDE RECORDS SUMMARY | 2024-11-20 17:06 | XMS_ITS | Encounter Summary ---
Author Organization [facility] Address [address] [place] [address] Care Team Providers Care Hot Shot Name Role Phone Rita Sykes Primary Care Provider +1- [phone] Reason for Visit * Reason Comments review labs Conjunctivitis [place] eye x 2 day now . Encounter Details Date Type Department Care Team (Latest Contact Info) Description 01/02/2022 1:30 PM ADOBE BLOCK MAKER Office Visit [facility] Family Medicine [address] [place] [address] Rita Sykes PA [address] [place] [address] Bacterial conjunctivitis of left eye (Primary Dx); Skin lesion; Fatigue, unspecified type; Lipid screening; Diabetes mellitus screening; BMI 27.0-27.9,adult Social History Tobacco Use Types Packs/Day Years [...] Sign Reading Time Taken Comments Blood Pressure 100/80 01/02/2022 1:43 PM ADOBE BLOCK MAKER Pulse 95 01/02/2022 1:43 PM ADOBE BLOCK MAKER Temperature 37.1 ??C (98.7 ??F) 01/02/2022 1:43 PM CS T Respiratory Rate - - Oxygen Saturation 98% 01/02/2022 1:43 PM ADOBE BLOCK MAKER Inhaled Oxygen Concentration - - Weight 80.7 kg (178 lb) 01/02/2022 1:43 PM ADOBE BLOCK MAKER Height 170.2 cm (5' 7 ) 01/02/2022 1:43 PM ADOBE BLOCK MAKER Body Mass Index 27.88 01/02/2022 1:43 PM ADOBE BLOCK MAKER documented in this encounter Ordered Prescriptions Prescription Sig Dispense Quantity Refills Last Filled Start Date End Date ciprofloxacin (CILOXAN) 0.3 % ophthalmic ointment Administer 1 drop into the right eye every 2 (two) hours Administer 1 drop, every 2 hours, while awake, for 2 days. Then 1 drop, every 4 hours, while awake, for the next 5 days. 3.5 g 01/02/2022 2 documented in this encounter Progress Notes * Rita Sykes PA - 01/02/2022 1:30 PM CST Images from the original note were not included. Subjective/Objective Patient ID: Erika Childs is a 31 y.o. female. Chief Complaint review labs and Conjunctivitis ([place] eye x 2 day now.) HPI Last summer her eye infection was really allergies and antihistamine drops resolved it. Noted increased goopy discharge in the left eye for th elast 4 days. Had a little left over antibacterial drops from last summer and has noted improvement but they are now out. No vision changes Patient would like to see a hand therapist. Has multiple skin lesions and needs all over skin exam Review of Systems See HPI Vitals: 01/02/22 1343 BP: 100/80 BP Location: Left arm Patient Position: Sitting Pulse: 95 Temp: 37.1 ??C (98.7 ??F) TempSrc: Oral SpO2: 98% Weight: 80.7 kg (178 lb) Height: 170.2 cm (5' 7 ) Physical Exam Constitutional: Appearance: Normal appearance. HENT: Head: Comments: Left eye is injected. No active drainage. From the eye. Neurological: Mental Status: She is alert. Assessment/Plan Diagnoses and all orders for this visit: Bacterial conjunctivitis of left eye (H10.9) (Primary) Assessment & Plan: Her symptoms seem most consistent with a [...] changes she is to follow up immediately. Skin lesion (L98.9) Assessment & Plan: Referral made to [facility] Dermatology. She will reach out to set her own appointment. Orders: - Ambulatory referral to Dermatology; Future Fatigue, unspecified type (R53.83) Assessment & Plan: Probably multifactorial. Check labs and followup to re-evaluate Orders: - CBC with auto differential; Future - Comprehensive metabolic panel; Future - TSH; Future - Vitamin D 25 hydroxy; Future Lipid screening (Z13.220) Assessment & Plan: Check labs Orders: - Lipid panel; Future Diabetes mellitus screening (Z13.1) Assessment & Plan: Check labs Orders: - Hemoglobin A1c; Future BMI 27.0-27.9,adult (Z68.27) Assessment & Plan: Weight/BMI is in healthy range. Continue healthy lifestyle to maintain. Other orders - ciprofloxacin (CILOXAN) 0.3 % ophthalmic ointment; Administer 1 drop into the right eye every 2 (two) hours Administer 1 drop, every 2 hours, while awake, for 2 days. Then 1 drop, every 4 hours, while awake, for the next 5 days. *This note is dictated using [employer] medical voice recognition software, variances in spelling and vocabulary are possible and unintentional.* Rita Sykes PA-C Cosigned by Jae Simons MD at 01/05/2022 9:55 PM ADOBE BLOCK MAKER E BLOCK MAKER E BLOCK MAKER documented in this encounter Miscellaneous Notes * Assessment & Plan Note - Rita Sykes PA - 01/04/2022 2:24 PM ADOBE BLOCK MAKER Associated Problem(s): Fatigue (Resolved 05/17/2022) Probably multifactorial. Check labs and followup to re-evaluate E BLOCK MAKER * Assessment & Plan Note - Rita Sykes PA - 01/04/2022 2:24 PM ADOBE BLOCK MAKER Associated Problem(s): Lipid screening (Resolved 05/17/2022) Check labs E BLOCK MAKER * Assessment & Plan Note - Rita Sykes PA - 01/04/2022 2:24 PM ADOBE BLOCK MAKER Associated Problem(s): Diabetes mellitus screening (Resolved 05/17/2022) Check labs E BLOCK MAKER * Assessment & Plan Note - Rita Sykes PA - 01/04/2022 2:24 PM ADOBE BLOCK MAKER Associated Problem(s): Bacterial conjunctivitis of left eye (Resolved 05/17/2022) Her symptoms seem most consistent with a [...] changes she is to follow up immediately. E BLOCK MAKER * Assessment & Plan Note - Rita Sykes PA - 01/04/2022 2:23 PM ADOBE BLOCK MAKER Associated Problem(s): Skin lesion Referral made to [facility] Dermatology. She will reach out to set her own appointment. E BLOCK MAKER E BLOCK MAKER * Assessment & Plan Note - Sushant Flores MA - 01/02/2022 1:47 PM ADOBE BLOCK MAKER Associated Problem(s): BMI 25.0-25.9,adult Weight/BMI is in healthy range. Continue healthy lifestyle to maintain. E BLOCK MAKER documented in this encounter Plan of Treatment Scheduled Orders Name Type Priority Associated Diagnoses Orde r Schedule Lipid panel Lab Routine Lipid screening Expected: 01/02/2023, Expires: 01/02/2023 documented as of this encounter Procedures Procedure Name Priority Date/Time Associated Diagnosis Comments CBC WITH AUTO DIFFERENTIAL Routine 03/24/2022 1:07 PM CDT Fatigue, unspecified type VITAMIN D 25 HYDROXY Routine 03/24/2022 1:07 PM CDT Fatigue, unspecified type TSH Routine 03/24/2022 1:07 PM CDT Fatigue, unspecified type HEMOGLOBIN A1C Routine 03/24/2022 1:07 PM CDT Diabetes mellitus screening LIPID PANEL Routine 03/24/2022 1:07 PM CDT COMPREHENSIVE METABOLIC PANEL Routine 03/24/2022 1:07 PM CDT Fatigue, unspecified type documented in this encounter Results * (ABNORMAL) Lipid panel (03/24/2022 1:07 PM CDT) Cholesterol 170 <200 mg/dL [facility] HDL 50 > OR = 50 mg/dL [facility] Triglycerides 58 <150 mg/dL [facility] LDL 106(H) mg/dL (calc) [facility] Comment: Reference range: <100 Desirable range <100 mg/dL for primary prevention; ?? <70 mg/dL for patients with CHD or diabetic patients with > or = 2 CHD risk factors. LDL-C is now calculated using the Soo calculation, which is a validated novel method providing better accuracy than the Friedewald equation in the estimation of LDL-C. aMximiliano SS et al. EMILY. 2013;310(19): 8926-0723 (http://education.InterviewBest/faq/ZKW425) Chol/HDL ratio 3.4 <5.0 (calc) [facility] Non-HDL, (LDL+VLDL) 120 <130 mg/dL (calc) [facility] Comment: For patients with diabetes plus 1 major ASCVD risk factor, treating to a non-HDL-C goal of <100 mg/dL (LDL-C of <70 mg/dL) is considered a therapeutic option. 03/24/2022 1:07 PM CDT 03/24/2022 1:08 PM CDT Rita GONZÁLES LAB BLOOD ORDERABLES Final Result [facility] [address] [place] [address] * (ABNORMAL) Vitamin D 25 hydroxy (03/24/2022 1:07 PM CDT) Vitamin D 25-OH 19(L) 30 - 100 ng/mL [facility] Comment: Vitamin D Status ? 25-OH Vitamin D: Deficiency: ?<20 ng/mL Insufficiency: ? 20 - 29 ng/mL Optimal: ? > or = 30 ng/mL For 25-OH Vitamin D testing on patients on D2-supplementation and patients for whom quantitation of D2 and D3 fractions is required, the Quest[facility](TM) 25-OH VIT D, (D2,D3), LC/MS/MS is recommended: order code 37363 (patients >2yrs). See Note 1 Note 1 For additional information, please refer to http://education.InterviewBest/faq/WEO787 (This link is being provided for informational/ educational purposes only.) Blood specimen (specimen) 03/24/2022 1:07 PM CDT 03/24/2022 1:08 PM CDT Rita GONZÁLES LAB BLOOD ORDERABLES Final Result Performing Organization Address [facility] Co de Phone Number [facility] [address] [place] [address] * TSH (03/24/2022 1:07 PM CDT) Pathologist [facility] TSH 0.99 mIU/L [facility] Comment: ?Reference Range ?> or = 20 Years ??0.40-4.50 ? Ranges ?First trimester ?0.26-2.66 ?Second trimester ?? 0.55-2.73 ?Third trimester ?0.43-2.91 Blood specimen (specimen) 03/24/2022 1:07 PM CDT 03/24/2022 1:08 PM CDT Rita GONZÁLES LAB BLOOD ORDERABLES Final Result Performing Organization Address [facility] de Phone Number [facility] [address] [place] [address] * Hemoglobin A1c (03/24/2022 1:07 PM CDT) Pathologist [facility] Hgb A1C 5.2 <5.7 % of total Hgb [facility] Comment: For the purpose of screening for the presence of diabetes: <5.7% ? Consistent with the absence of diabetes 5.7-6.4% ?Consistent with increased risk for diabetes ?(prediabetes) > or =6.5% ??Consistent with diabetes This assay result is consistent with a decreased risk of diabetes. Currently, no consensus exists regarding use of hemoglobin A1c for diagnosis of diabetes in children. According to [place] [employer] (ADA) guidelines, hemoglobin A1c <7.0% represents optimal control in non- diabetic patients. Different metrics may apply to specific patient populations. Standards of Medical Care in Diabetes(ADA). ?? Blood specimen (specimen) 03/24/2022 1:07 PM CDT 03/24/2022 1:08 PM CDT Rita GONZÁLES LAB BLOOD ORDERABLES Final Result [facility] [address] [place] [address] * (ABNORMAL) Comprehensive metabolic panel (03/24/2022 1:07 PM CDT) Glucose 92 65 - 99 mg/dL [facility] Comment: ? Fasting reference interval BUN 13 7 - 25 mg/dL [facility] Creatinine 0.83 0.50 - 1.10 mg/dL [facility] eGFR NON-AFR. SPANISH 95 > OR = 60 mL/min/1. 73m2 [facility] EGFR 110 > OR = 60 mL/min/1. 73m2 [facility] BUN/creat ratio NOT APPLICABLE 6 - 22 (calc) [facility] Sodium 138 135 - 146 mmol/L [facility] Potassium, pl 4.5 3.5 - 5.3 mmol/L [facility] Chloride 104 98 - 110 mmol/L [facility] CO2 28 20 - 32 mmol/L [facility] Calcium 9.6 8.6 - 10.2 mg/dL [facility] Protein, sr 6.9 6.1 - 8.1 g/dL [facility] Albumin 4.9 3.6 - 5.1 g/dL [facility] GLOBULIN 2.0 1.9 - 3.7 g/dL (calc) [facility] Alb/glob ratio 2.5 1.0 - 2.5 (calc) [facility] Bilirubin, total 0.4 0.2 - 1.2 mg/dL [facility] Alk phos 27(L) 31 - 125 U/L [facility] AST 13 10 - 30 U/L [facility] ALT (SGPT) 9 6 - 29 U/L [facility] Blood specimen (specimen) 03/24/2022 1:07 PM CDT 03/24/2022 1:08 PM CDT Rita GONZÁLES LAB BLOOD ORDERABLES Final Result [facility] [address] [place] [address] * CBC with auto differential (03/24/2022 1:07 PM CDT) WBC 7.6 3.8 - 10.8 Thousand/u L [facility] RBC, POC 4.25 3.80 - 5.10 Million/uL [facility] Hgb 12.6 11.7 - 15.5 g/dL [facility] Hct 38.7 35.0 - 45.0 % [facility] MCV 91.1 80.0 - 100.0 fL [facility] MCH 29.6 27.0 - 33.0 pg [facility] MCHC 32.6 32.0 - 36.0 g/dL [facility] Rdw 11.7 11.0 - 15.0 % [facility] Platelets 203 140 - 400 Thousand/u L [facility] MPV 12.4 7.5 - 12.5 fL [facility] Neutrophils, abs 4,302 1,500 - 7,800 cells/uL [facility] Lymphocytes, abs 2,759 850 - 3,900 cells/uL [facility] Monocyte abs 456 200 - 950 cells/uL [facility] Eosinophils, abs 53 15 - 500 cells/uL [facility] Basophils, abs 30 0 - 200 cells/uL [facility] Neutrophils 56.6 % [facility] Lymphocyte pct 36.3 % [facility] Monocytes 6.0 % [facility] Eosinophils 0.7 % [facility] Basophils 0.4 % [facility] Blood specimen (specimen) 03/24/2022 1:07 PM CDT 03/24/2022 1:08 PM CDT Rita GONZÁLES LAB BLOOD ORDERABLES Final Result Performing Organization Address City/State/[facility] Phone Number [facility] [address] [place] [address] documented in this encounter Visit Diagnoses Diagnosis Bacterial conjunctivitis of left eye- Primary Skin lesion Unspecified disorder of skin and subcutaneous tissue Fatigue, unspecified type Lipid screening Screening for lipoid disorders Diabetes mellitus screening Screening for diabetes mellitus BMI 27.0-27.9,adult documented in this encounter Historical Medications * This list may reflect changes made after this encounter. ziprasidone (GEODON) 20 mg capsule Take 20 mg by mouth 12/13/2021 06/05/2023 dextroamphetamine -amphetamine (ADDERALL) 20 mg tablet Take 20 mg by mouth 2 (two) times a day 12/13/2021 06/04/2023 clonazePAM (KlonoPIN) 0.5 mg tablet Take 0.5 mg by mouth 3 (three) times a day as needed 12/13/2021 06/04/2023 added in this encounter Care Teams Hot Shot Relationship Specialty Start Date End Date Rita Sykes PA [address] [facility] [facility] [address] [place] [address] (work) PCP - General Internal Medicine 04/05/21 documented as of this encounter
--- OUTSIDE RECORDS SUMMARY | 2024-11-20 17:06 | XMS_ITS | Encounter Summary ---
Author Organization [facility] Address [address] [place] [address] Care Team Providers Care Produce Assistant Name Role Phone Rita Sykes Primary Care Provider +1- [phone] Reason for Referral * Consultation (Routine) - Closed Specialty Diagnoses / Procedures Referred By Contac t Referred To Contact Ophthalmology Diagnoses Enlarged blind spot of right eye Rita Sykes PA [address] [facility] [address] [place] [address] Phone: tel: fax: [place] [address] [place] [address] Phone: tel: fax: Referral ID Status Reason Start Date Expiration Date V isits Requested Visits Authorized [id number] Closed Specialty Services Required 04/01/2022 05/01/2023 8 8 Question Answer Please select the performing region: [facility] (All Locations) [167] To provider: PARTH SCHREIBER [[id number]] # of visits: 1 Comments Patient notes blind spot in the right eye. OD - recommended further evaluation/rule out Multiple Sclerosis. Reason for Visit * Reason Onset Date Comments Blind spot in right eye 03/26/2022 Encounter Details Date Type Department Care Team (Late st Contact Info) Description 03/26/[address] [facility] Medical [facility] Family Medicine [address] [place] [address] Rita Sykes PA [address] [place] [id number] Blind spot in right eye Social History Tobacco Use Types Packs/Day Years [...] Telephone Encounter - Latrice Jean MA - 04/01/2022 3:17 PM CDT I called Dr. Franco's office and it was confirmed that they received the referral. It will be forwarded to him for review and they will call the patient to schedule. I also called to let patientknow the above information. She was instructed to call this office if she does not hear from them in a timely manner. She also wrote down telephone number so that she can check herself in a few days. * Addendum Note - Rita Sykes PA - 04/01/2022 3:10 PM CDTAddended by: RITA SYKES on: 04/01/2022 03:10 PM Modules accepted: Orders * Telephone Encounter - Rita Sykes PA - 04/01/2022 3:03 PM CDT Recvde notes from [facility]. Difficult to read his handwritten notes but she is complaining of a blind spot in the right eye andthe provider is concerned about possible Multiple Sclerosis vs other etiology. Will refer to Dr. Loving at [facility], Neuro Ophth * Telephone Encounter - Sushant Flores MA - 03/28/2022 8:48 AM CDT Pt was seen at [facility], clinic notes are being faxed over now. * Telephone Encounter - Rita Sykes PA - 03/27/2022 9:26 PM CDT Please call patient and get the name of the Eye doctor that she saw and then call that office for the records. ------- Dr. Johnson, NeuroOphth at [facility] will be who she will then be referred to once Ireview the note. . * Telephone Encounter - Sushant Flores MA - 03/27/2022 4:14 PM CDT Called the office of Dr. Parth Enriquez state this has never been there. No record on file * Telephone Encounter - Rita Sykes PA - 03/27/2022 3:51 PM CDT See note above. The provider will be Dr. Parth Scanlon. * Telephone Encounter - Rita Sykes PA - 03/27/2022 3:47 PM CDT Please get her eye doctor notes from the last visit. I will refer her to a neuro Ophthamologist at [facility] once they are received. * Telephone Encounter - Barbara Cardoso - 03/26/2022 3:32 PM CDT Loni went to her eye dr today and was told her eyes are perfectly healthy however, she has a blindspot in her right eye that is there constantly. He suggested she call her PCP to discuss a neurology appt. documented in this encounter Plan of Treatment Scheduled Referrals Name Type Priority Associated Diagnoses Order Schedule Ambulatory referral to Ophthalmology Outpatient Referral Routine Enlarged blind spot of right eye Expected: 04/15/2022 (Approximate), Expires: 04/01/2023 documented as of this encounter Visit Diagnoses Diagnosis Enlarged blind spot of right eye- Primary documented in this encounter Care Teams Produce Assistant Relationship Specialty Start Date End Date Rita Sykes PA [address] [place] [address] PCP - General Internal Medicine 04/05/21 documented as of this encounter
--- OUTSIDE RECORDS SUMMARY | 2024-11-20 17:06 | XMS_ITS | Encounter Summary ---
Author Organization [facility] Address [address] [facility] [address] [place] [id number] Care Team Providers Care Tram Driver Name Role Phone Rita Sykes Primary Care Provider [phone]- [phone] Reason for Visit * Reason Comments Conjunctivitis Encounter Details Date Type Department Care Team (Latest Contact Info) Description 05/09/2021 3:45 PM CDT Office Visit [facility] Family Medicine [address] [place] [address] Rita Sykes PA [address] [facility] [address] [place] [address] Bacterial conjunctivitis of right eye (Primary Dx); BMI 28.0-28.9,adult Social History Tobacco Use Types [...] Sign Reading Time Taken Comments Blood Pressure 110/80 05/09/2021 3:24 PM CDT Pulse 56 05/09/2021 3:24 PM CDT Temperature 37.1 ??C (98.7 ??F) 05/09/2021 3:24 PM CD T Respiratory Rate - - Oxygen Saturation 98% 05/09/2021 3:24 PM CDT Inhaled Oxygen Concentration - - Weight 83.9 kg (185 lb) 05/09/2021 3:24 PM CDT Height 170.2 cm (5' 7 ) 05/09/2021 3:24 PM CDT Body Mass Index 28.98 05/09/2021 3:24 PM CDT documented in this encounter Ordered Prescriptions Prescription Sig Dispense Quantity Refills Last Filled Start Date End Date ciprofloxacin (CILOXAN) 0.3 % ophthalmic solution Administer 1 drop into the right eye every 2 (two) hours Administer 1 drop, every 2 hours, while awake, for 2 days. Then 1 drop, every 4 hours, while awake, for the next 5 days. 5 mL 05/09/2021 documented in this encounter Progress Notes * Rita Sykes PA - 05/09/2021 3:45 PM CDT Images from the original note were not included. Subjective/Objective Patient ID: Erika Childs is a 30 y.o. female. Chief Complaint Conjunctivitis HPI New patient presents today for acute concern of pinkeye Woke up with red right eye that is itchy and has drainage near the nose. Has at home who hasn't been sick. No visual changes. Review of Systems Constitutional: Negative for fever. HENT: Negative for congestion. Eyes: Positive for discharge and redness. Respiratory: Negative for shortness of breath. Cardiovascular: Negative for chest pain. Gastrointestinal: Negative for constipation and diarrhea. Vitals: 05/09/21 1524 BP: 110/80 BP Location: Left arm Patient Position: Sitting Pulse: 56 Temp: 37.1 ??C (98.7 ??F) TempSrc: Oral SpO2: 98% Weight: 83.9 kg (185 lb) Height: 170.2 cm (5' 7 ) Physical Exam Vitals and nursing note reviewed. Constitutional: Appearance: She is well-developed. HENT: Head: Normocephalic and atraumatic. Eyes: Comments: Pupils are equal. Right conjunctiva is injected with purulent drainage medially and crusting in the eye lashes Abdominal: Tenderness: There is abdominal tenderness. Skin: General: Skin is warm and dry. Findings: No rash. Neurological: Mental Status: She is alert and oriented to person, place, and time. Assessment/Plan Diagnoses and all orders for this visit: Bacterial conjunctivitis of right eye (H10.9) (Primary) Assessment & Plan: Discussed conjunctivitis. Will send out antibiotic eyedrops. Encouraged her to keep the area clean using a washcloth or paper towel that she can throw away after wiping the area. Keep hands washed totry to avoid cross contamination and passing onto her child. If she starts to have increased pain, visual changes or any other problems she is to contact us immediately. She has a new patient appointment to establish care in the next week so will follow-up at that time BMI 28.0-28.9,adult (Z68.28) Assessment & Plan: Weight/BMI is in healthy range. Continue healthy lifestyle to maintain. Addendum: Ciprofloxacin drops had to be orally call to the pharmacy. She is to take 1 drop in the right eye every 2 hours while she is awake for 2 days then 1 drop every 4 hours while she is awake for a total of 5 days. Dispense 1. This was sent to [facility] and [facility] Rita Sykes PA-C documented in this encounter Miscellaneous Notes * Assessment & Plan Note - Rita Sykes PA - 05/22/2021 7:51 PM CDT Associated Problem(s): BMI 28.0-28.9,adult (Resolved 01/02/2022) Weight/BMI is in healthy range. Continue healthy lifestyle to maintain. * Assessment & Plan Note - Rita Sykes PA - 05/22/2021 7:50 PM CDT Associated Problem(s): Bacterial conjunctivitis of left eye (Resolved 05/17/2022) Discussed conjunctivitis. Will send out antibiotic eyedrops. Encouraged her to keep the area clean using a washcloth or paper towel that she can throw away after wiping the area. Keep hands washed totry to avoid cross contamination and passing onto her child. If she starts to have increased pain, visual changes or any other problems she is to contact us immediately. She has a new patient appointment to establish care in the next week so will follow-up at that time * Assessment & Plan Note - Sushant Flores MA - 05/09/2021 3:26 PM CDT Associated Problem(s): BMI 28.0-28.9,adult (Resolved 05/16/2021) Weight/BMI is in healthy range. Continue healthy lifestyle to maintain. documented in this encounter Plan of Treatment Not on file documented as of this encounter Visit Diagnoses Diagnosis Bacterial conjunctivitis of right eye- Primary BMI 28.0-28.9,adult documented in this encounter Care Teams Tram Driver Relationship Specialty Start Date End Date Rita Sykes PA [address] [facility] [address] [place] [address] PCP - General Internal Medicine 04/05/21 documented as of this encounter
== END 2024-11-13 13:53 | disposition home or self-care (01) ==
PROVIDERS: Emergency Provider Emergency Medicine; PCP Physician Assistant
DX: K52.9 Noninfective gastroenteritis and colitis, unspecified (principal); F31.9 Bipolar disorder, unspecified; F41.9 Anxiety disorder, unspecified
CPT/HCPCS: 36415; 80053; 81001; 81025; 83690; 85025; 96361; 96374; 96375; 99284; J2270; J2405; J7030

== ENCOUNTER 2025-02-04 12:43 | Emergency (ER) | payer BC, SELFPAY ==
[2025-02-04] VITALS (7 sets, daily range): BP systolic 99–122; BP diastolic 54–80; PULSE 66–99; RESP 16–18; TEMP 36.8; O2SAT 99–100
--- NOTE | ~2025-02-04 | US_ITS ---
EXAMINATION: US OB <= 14 weeks fetus INDICATION: vomiting, TECHNIQUE: Sonography of the pelvis was performed by transabdominal techniques. COMPARISON: None. RESULT: Uterus: 12.5 x 8.6 x 9.7 cm. Anteverted. Homogenous myometrium. Intrauterine gestational sac: Single present. Mean Sac Diameter: 4.78 cm, corresponding gestational age 10 week 3 days. A thin, curved, echogenic membrane is noted in the gestational sac anterior to t he pole. Embryo: Single present. [place] rump length: 3.71 cm, corresponding gestational age 10 weeks, 4 days. Gestational heart rate: present 175 bpm. Subgestational hematoma: Absent . Right ovary: 2.5 x 2.3 x 2.5 cm. Vascular flow is present. No adnexal mass. Left ovary: 2.3 x 2.9 x 2.4 cm. Vascular flow is present. No adnexal mass. Pelvis free fluid: None. IMPRESSION: Single, live intrauterine gestation. Yolk sac not visualized. tachycardia at 175 bpm. An echogenic membrane is noted in the gestational sac, which may represent chorioamnionic separation, which can still be normal at this stage in . A large yolk sac is considered less likely giv en the size greater than 3 cm. Recommend close clinical and sonographic follow-up. Estimated Gestational Age: 10 weeks, 4 days by crown rump length. OMID by ultrasound 08/29/2025. Reviewed, dictated and finalized at location K. IMPRESSION: Single, live intrauterine gestation. Yolk sac not visualized. tachycardia at 175 bpm. An echogenic membrane is noted in the gestational sac, which may represent chor ioamnionic separation, which can still be normal at this stage in . A large yolk sac is considered less likely given the size greater than 3 cm. Yobani mmend close clinical and sonographic follow-up. Estimated Gestational Age: 10 weeks, 4 days by crown rump length. OMID by ultra sound 08/29/2025.
--- OUTSIDE RECORDS SUMMARY | 2025-02-04 12:45 | XMS_ITS | Encounter Summary ---
Author Organization [facility] Address [address] [place] [address] Care Team Providers Care Resource Development Manager Name Role Phone Rita Sykes Primary Care Provider [phone]- [phone] Encounter Details Date Type Department Care Team (Late st Contact Info) Description 11/13/2024 Orders Only [facility] Information Management [address] [place] [id number] Scanning, Provider Social History Tobacco Use Types Packs/Day Years [...] Date Recorded PHQ-2 Total Score 16 07/12/2024 PHQ-9 Answer Date Recorded PHQ-9 Total Score 16 07/12/2024 Comments No Sex and Gender Information Value Date Recorded Sex Assigned at Not on file Legal Sex Female 9:13 AM CDT Gender Identity Not on file Sexual Orientation Not on file documented as of this encounter Plan of Treatment Not on file documented as of this encounter Procedures Procedure Name Priority Date/Time Associated Diagnosis Comments SCAN - LABS 11/13/2024 documented in this encounter Results * SCAN - LABS (11/13/2024) us Provider Scanning Edited Result - Final documented in this encounter Visit Diagnoses Not on filedocumented in this encounter Additional Health Concerns Infection Onset Date Last Indicated Resolved Time COVID: Suspected 12/19/2024 12/19/2024 12/19/2024 8:38 AM COMPUTER SYSTEMS SUPPORT SPECIALIST documented as of this encounter Care Teams Resource Development Manager Relationship Specialty Start Date End Date Rita Sykes PA [address] [address] PCP - General Internal Medicine 04/05/21 documented as of this encounter
--- OUTSIDE RECORDS SUMMARY | 2025-02-04 12:45 | XMS_ITS | Clinical Summary ---
Author Organization [facility] Address [address] [place] [address] Phone Care Team Providers Care Director Of Residential Services Name Role Phone Below, Kiel Reed MD Unavailable [phone] Torey Saleh BAKERY MANAGER Unavailable Unavailable Kalli Lopez APRN, INSTRUMENT PERSON Unavailable Allergies Active Allergy Reactions Criticality Noted [...] on file Legal Sex Female 3:08 AM CARE MANAGEMENT ASSOCIATE Gender Identity Not on file Sexual Orientation Not on file Last Filed Vital Signs Vital Sign Reading Time Taken Comments Blood Pressure 120/60 12/08/2022 1:05 PM CARE MANAGEMENT ASSOCIATE Pulse 63 12/08/2022 1:05 PM CARE MANAGEMENT ASSOCIATE Temperature 36.9 C (98.5 F) 03/28/2019 3:22 PM CDT Respiratory Rate 16 01/30/2020 2:03 PM CDT Oxygen Saturation 100% 11/11/2018 11:24 AM CARE MANAGEMENT ASSOCIATE Inhaled Oxygen Concentration - - Weight 74.8 kg (165 lb) 12/08/2022 1:05 PM CARE MANAGEMENT ASSOCIATE Height 172.7 cm (5' 8 ) 12/08/2022 1:05 PM CARE MANAGEMENT ASSOCIATE Body Mass Index 25.09 12/08/2022 1:05 PM CARE MANAGEMENT ASSOCIATE Plan of Treatment Health Maintenance Due Date Last Done Comments Hepatitis C Virus (HCV) Screening 1991 Hepatitis B Immunization (1 of 3 - 19+ 3-dose series) 2010 Pneumococcal Immunization Combined (1 of 2 - PCV) 2010 Pap Smear 05/18/2022 05/18/2019, 04/25, 06/26/2014, Additional history exists Cervical Cancer Screening (CCS) 05/22/2022 HPV/Cotest 05/22/2022 05/22/2017 Influenza Immunization (#1) 07/24/2024/2 12/2020, 11/11/2018, 08/08/2016, Additional history exists SARS-COV-2 Immunization ( season) 2024 10/26/2021, 02/22/2021, 02/01/2021 Td Immunization Every 10 Years (Adults With 1 Tdap) 11/11/2025 11/11/2015, 06/07/2015 Respiratory Syncytial Virus (RSV) Immunization (Adult) (1 - 1-dose 75+ series) 2066 Meningococcal Immunization (ACWY) Completed 07/07/2008 Rotavirus Immunization Aged Out No lo nger eligible based on patient's age to complete this topic Medical Devices Implanted Type Area Juke Box Servicer Device Identifier Shelf Expiration Date Model / Serial / Lot Scrw Intfr Bobby Shth 7x25mm Ti Strl - [id number] Implanted:Qty: 1 on 09/16/2016 by Kiel Zelaya MD at [facility] IMPLANT Right: Knee [employer] AR-[id number] / / [id number] Scr Intfr Bobby 8x20 Ti Strl - [id number] Implanted:Qty: 1 on 09/16/2016 by Kiel Zelaya MD at [facility] IMPLANT Right: Knee [employer] AR-[id number] / / [id number] Bi-Cortical Post Ti 4.5mmx37.5mm - [id number] Implanted:Qty: 1 on 09/16/2016 by Kiel Zelaya MD at [facility] IMPLANT Right: Knee [employer] AR-1365-37 [id number] / / [id number] Procedures Procedure Name Priority Date/Time Associated Diagnosis Comments PATHOLOGY CYTOLOGY LEARNING DISABILITIES SPECIALIST Routine 05/18/2019 11:27 AM CDT Vaginal discharge HUMAN PAPILLOMA VIRUS (HPV) Routine 05/22/2017 11:00 AM CDT Encounter for screening for human papillomavirus (HPV) from Last 3 Months or Most Recently Relevant to Health Maintenance Results * PATHOLOGY CYTOLOGY LEARNING DISABILITIES SPECIALIST (05/18/2019 11:27 AM CDT) SPECIMEN ADEQUACY Satisfactory for evaluation. Endocervical/transf ormation zone component is present. 05/24/2019 10:51 AM CDT [facility] GENERAL CATEGORY NEGATIVE FOR INTRAEPITHELIAL LESIONS OR MALIGNANCY. 05/24/2019 10:51 AM CDT [facility] DESCRIPTIVE DIAGNOSIS Reactive cellular changes associated with inflammation and repair. 05/24/2019 10:51 AM [facility] MATED EXAMINATION Analysis of this sample has been assisted by an automated imaging and review system ([employer] Imaging System, [employer], [place], [place]). This case is further evaluated and finalized by a hedge fund accountant and/or pathologist. 05/24/2019 10:51 AM CDT [facility] DISCLAIMER The PAP smear is a [...] 65 unless clinically indicated. 05/24/2019 10:51 AM CDT [facility] Case Report Gynecologic Cytology Report Case: [id number] Authorizing Provider: Elba Velazquez MD Collected: 05/18/2019 11:27 AM Ordering Location: [facility] Received: 05/18/2019 11:27 AM INT MED First Screen: Reginaldo Oliva Pathologist: Vishnu Montoya MD Specimen: TP Screen, CERVIX/ENDOCERVIX/V AGINAL 05/24/2019 10:51 AM CDT [facility] HPV Reflex if ASCUS? Yes 05/24/2019 10:51 AM [facility] Specimen of unknown material (specimen) (Cervix/Endocerv ix/Vaginal) Non-Phlebotomy Collection / Unknown 05/18/2019 11:27 AM CDT 05/18/2019 11:27 AM CDT Elba Velazquez MD PATHOLOGY/CYTOLOGY ORDERABLE S Final Result [facility] [address] [place] [address], * HUMAN PAPILLOMA VIRUS (HPV) (05/22/2017 11:00 AM CDT) HPV OTHER HIGH RISK TYPES, PCR NEGATIVE NEGATIVE 05/27/2017 2:20 PM CDT [facility] Comment: The following Other High Risk types [...] 16 NEGATIVE NEGATIVE 05/27/2017 2:20 PM CDT [facility] Comment: A negative high-risk HPV result does [...] 18 NEGATIVE NEGATIVE 05/27/2017 2:20 PM CDT [facility] Comment: A negative high-risk HPV result does [...] AM CDT 05/22/2017 11:00 AM CDT Narrative [facility] - 05/27/2017 2:20 PM CDT Performed by Real-Time Polymerase Chain Reaction (PCR) on the [address]. [address] [facility] SEND OUTS Final Result [facility] [address] [place] [address], [place] from Last 3 Months or Most Recently Relevant to Health Maintenance Insurance MEDICAID [place] [facility] TPL Advance Directives * Full Code [...] AM 08/26/2011 1:56 PM none Care Teams Director Of Residential Services Relationship Specialty Start Date End Date Below, Kiel Reed MD [address] [place] [address] Consulting Physician Orthopaedic Sports Medicine 09/08/16 Torey Saleh [facility] [address] [place] [address] Behavioral Therapist Licensed Clinical Professional Counselor 03/25/18 Kalli Lopez APRN, INSTRUMENT PERSON [address] [place] [address] Nurse Practitioner Advanced Practice Nurse 04/17/22
--- OUTSIDE RECORDS SUMMARY | 2025-02-04 12:46 | XMS_ITS | Referral Summary ---
Author Organization [facility] [employer] Address [facility] [facility] [place] [address] Care Team Providers Care Tile Setter Apprentice Name Role Phone Unavailable Primary Care Provider Unavailabl e Source Comments [facility] [employer],non-owned Affiliates and Associated Physician Practices is amultiple site organization consisting of ambulatory clinics and hospital sitesin [place], [place], [place] and [place]. This disclosure is being madepursuant to the Care Everywhere program and may not contain all information available regarding this patient. Last updated 18.[facility] [employer] Allergies No known active allergies Medications * Be aware that medications may not be up to date on this document. Alwaysverify current medications with the patient. Medication Sig Dispensed Refills Start Date End Date Status naloxone HCl (Narcan) 4 MG/0.1ML nasal spray Gering 1 (one) spray into the nose as needed 2 Each 09/21/2023 Active Social History Tobacco Use Types Packs/Day Years Used Date Smoking Tobacco: Never Assessed Sex and Gender Information Value Date Recorded Sex Assigned at Not on file Gender Identity Not on file Sexual Orientation Not on file Last Filed Vital Signs Vital Sign Reading Time Taken Comments Blood Pressure 95/56 09/21/2023 7:29 AM CDT Pulse 67 09/21/2023 7:29 AM CDT Temperature 36.2 C (97.1 F) 09/21/2023 6:05 AM CDT Respiratory Rate 16 09/21/2023 7:29 AM CDT Oxygen Saturation 100% 09/21/2023 7:29 AM CDT Inhaled Oxygen Concentration - - Weight - - Height - - Body Mass Index - - Plan of Treatment Not on file
--- OUTSIDE RECORDS SUMMARY | 2025-02-04 12:46 | XMS_ITS | Referral Summary ---
Author Organization [facility] [address] Address [address] [place] [address] Care Team Providers Care Obstetrics Nurse Name Role Phone Rita Sykes Primary Care Provider [phone]- [phone] Encounters Date Type Department Care Team Description 02/04/2025 Orders Only [facility] Obstetrical Gynecology [address] [place] [phone] Zahra Mcdaniel MD 01/23/2025 Results Follow-Up [facility] [address] [place] [address] Shiv Gamez MD 01/20/2025 1:30 PM [employer] Lab [facility] Building [address] [address] Encounter for supervision of other normal in first trimester 01/20/2025 1:14 PM [employer] - 01/20/2025 11:59 PM [employer] Hospital Encounter [facility] Building [address] [address] Encounter for supervision of other normal in first trimester Discharge Disposition: Discharge to home or self care 01/20/2025 11:30 AM [employer] Office Visit [facility] Obstetrical Gynecology [address] [place] [phone] Shiv Gamez MD Encounter for supervision of other normal in first trimester (Primary Dx); Bipolar disorder in remission 01/20/2025 11:00 AM [employer] Clinical Support [facility] Obstetrical Gynecology [address] [place] [address] [place] [phone] 01/20/2025 10:15 AM [employer] Clinical Support [facility] Obstetrical Gynecology [address] [place] [address] [place] [phone] Encounter to establish gestational age using ultrasound (Primary Dx) 01/02/[address] [place] [phone] Rita Sykes PA Forms Request 12/28/2024 11:00 AM [employer] Office Visit [address] [place] [phone] Rita Sykes PA Right wrist pain; BMI 26.0-26.9,adult 12/27/2024 Nurse Triage [address] [place] [phone] Rita Sykes PA 12/21/2024 Orders Only [facility] at [address] [phone] Berna Lewis, MAXINE Strep throat (Primary Dx) 12/19/2024 9:17 AM [employer] - 12/19/2024 11:59 PM [employer] Hospital Encounter [address] [address] Sore throat; Rectal bleeding; Altered bowel habits Discharge Disposition: Discharge to home or self care 12/19/2024 9:00 AM [employer] Lab [facility] Outpatient [facility] at [address] [phone] Acute cough (Primary Dx) 12/19/2024 8:15 AM [employer] Office Visit [facility] at [address] [phone] Beba Joseph, MAXINE Sore throat (Primary Dx); Acute cough 11/21/2024 Nurse Triage [address] [place] [phone] Rita Sykes PA 11/18/2024 3:30 PM [employer] Office Visit [facility] Internal Medicine at [address] [place] [phone] Genie De Anda, MAXINE Fever blister (Primary Dx); BMI 25.0-25.9,adult 11/15/2024 Telephone [facility] Family Medicine [address] [facility] [address] [place] [address] Rita Sykes PA 11/13/2024 Orders Only [facility] Health Information Management [address] [place], [place] [id number] Scanning, Provider from Last 3 Months Allergies Active Allergy Reactions Criticality Noted Date Comments Aripiprazole Nausea only Low 12/08/[address] (CYMBALTA) 60 mg capsule Take 1 capsule (60 mg total) by mouth daily 05/16/20 24 Active Additional Information Patient not taking.Reported on 01/20/2025 lisdexamfetamine (VYVANSE) 30 mg capsule Take by mouth daily 08/03/20 24 Active mirtazapine (REMERON) 15 mg tablet 09/02/20 24 Active meloxicam (MOBIC) 7.5 mg tabletIndications: Lumbar back pain Take 1 tablet (7.5 mg total) by mouth daily as needed for pain 90 tablet 09/30/20 24 Active Additional Information Patient not taking.Reported on 01/20/2025 dextroamphetamine- amphetamine (ADDERALL) 20 mg tablet 0 10/31/20 24 Active doxylamine-pyridox ine, vit B6, (DICLEGIS) 10-10 mg tablet Take 2 tablets by mouth nightly 60 tablet 2 01/12/20 25 Active metoclopramide (REGLAN) 10 mg tablet Take 1 tablet (10 mg total) by mouth every 6 (six) hours as needed (nausea) 30 tablet 2 01/12/20 25 Active vit 84-zmkq-jjxqq-dha 27mg iron- 800 mcg-250 mg capsule Take by mouth Active ondansetron ODT (ZOFRAN-ODT) 4 mg disintegrating tablet Take 1 tablet (4 mg total) by mouth every 8 (eight) hours as needed for nausea or vomiting 20 tablet 1 02/05/20 25 Active prochlorperazine (COMPAZINE) 5 mg tablet Take 1 tablet (5 mg total) by mouth every 6 (six) hours as needed for nausea or vomiting 30 tablet 02/05/20 25 Active Vraylar 3 mg capsule capsule TAKE 1 CAPSULE BY MOUTH EVERY DAY AT BEDTIME 08/15/20 24 025 Discontin ued(Patie nt Reported) Active Problems Problem Noted Date Diagnosed Date Supervision of other normal , antepartu m 01/20/2025 Right wrist pain 01/08/2025 Assessment & Plan (01/08/2025 3:37 PM [employer]): Patient has noticed right wrist pain. 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 When she has a few days off it does seem to subside. Tried a thumb splint but had no relief. Encouraged to get a cock-up splint to keep the wrist straight. She may use Tylenol she has a new . Encouraged ice to the area. Also discussed using her other hand and or can tire trucker or [employer] to do her work for her instead of having to do the repetitive motion. She is going to try to work this into her day. Due to the specific pain in the snuffbox will go ahead and send to Orthopedics for further evaluation. I am going to forego x- rays due to early . Advised may still need to get 1 with cover due to this specific weakness of the tenderness but will defer to Orthopedics. Fever blister 11/22/2024 Overview (11/22/2024): Take acyclovir as directed. Notify the office Thursday without improvement of symptoms Bipolar 1 disorder, manic, moderate 07/29/2024 Borderline personality disorder 07/29/2024 Rectal bleeding 07/23/2024 Assessment & Plan (07/23/2024 [...] were negative. And encouraged symptomatic treatment available [id number]. Symptoms worsen or do not resolve or [...] 024 Assessment & Plan (01/08/2024 9:13 AM [employer]): 2010 -- Dr Dale in [place] Right dismembered pyleoplasty Flank pain 01/08/2024 Assessment & Plan (01/10/2024 11:14 PM [employer]): Patient was treated for UTI last week. [...] 11/30/2023 Assessment & Plan (12/06/2023 2:23 PM [employer]): Check labs Diabetes mellitus screening 11/30/2023 Assessment & Plan (01/10/2024 11:12 PM [employer]): Check labs Assessment & Plan (12/06/2023 2:23 PM [employer]): Check labs Fatigue 11/30/2023 Assessment & Plan (01/10/2024 11:12 PM [employer]): Probably multifactorial. Check labs and followup to re-evaluate Assessment & Plan (12/06/2023 2:24 PM [employer]): Probably multifactorial. Check labs and followup to [...] 11/30/2023 Assessment & Plan (12/06/2023 2:24 PM [employer]): Continue per Psychiatry History of COVID-19 11/30/2023 Assessment & Plan (12/06/2023 2:24 PM [employer]): Recent history of COVID. She is feeling much better. Insomnia 06/12/2023 Assessment & Plan (06/12/2023 4:08 PM CDT): Patient has been following with psychiatrist up near [place]. She is no longer able to see her. Trying to establish with a local psychiatrist but needs assistance with medications as she has been off her medications for a couple of days now. Tried sending the Klonopin to [facility] but this is not preferred by her [...] Overview (12/06/2023): Managed by MAXINE Lopez in [place], [place] via telemedicine 2022-- transferred to Dr. Marielle Pickett Assessment & Plan (12/06/2023 2:23 PM [employer]): Managed by Dr. Pickett - Psychiatry Continue Adderall and Klonopin. She feels like her anxiety is really out of control and is going to work with Dr. Pickett to adjust medications. Assessment & Plan (06/12/2023 4:06 PM CDT): Patient has been following with psychiatrist up near [place]. She is no longer able to see her. Trying to establish with a local psychiatrist but needs assistance with medications as she has been off her medications for a couple of days now. Tried sending the Klonopin to [facility] but this is not preferred by her insurance so need to have medicines sent to the local [facility]. Will send Klonopin trazodone in the Adderall. Reminded patient that I do not usually refill these so I do want her to get in with a psychiatrist to manage her psychiatric concerns. She is in agreement with the plan Anxiety 05/17/2022 Assessment & Plan (12/06/2023 2:23 PM [employer]): Managed by Dr. Pickett - Psychiatry Continue Adderall and Klonopin. She feels like her anxiety is really out of control and is going to work with Dr. Pickett to adjust medications. Assessment & Plan (06/12/2023 4:08 PM CDT): Patient has been following with psychiatrist up near [place]. She is no longer able to see her. Trying to establish with a local psychiatrist but needs assistance with medications as she has been off her medications for a couple of days now. Tried sending the Klonopin to [email or web address] but this is not preferred by her insurance so need to have medicines sent to the local [facility]. Will send Klonopin trazodone in the Adderall. Reminded patient that I do not usually refill these so I do want her to get in with a psychiatrist to manage her psychiatric concerns. She is in agreement with the plan BMI 26.0-26.9,adult 01/02/2022 Assessment & Plan (01/08/2025 3:35 PM [employer]): Weight/BMI is in healthy range. Continue healthy lifestyle to maintain. Assessment & Plan (07/23/2024 9:48 PM CDT): Weight/BMI is in healthy range. Continue healthy lifestyle to maintain. Assessment & Plan (05/16/2024 11:30 PM CDT): Weight/BMI is in healthy range. Continue healthy lifestyle to maintain. Assessment & Plan (01/02/2022 1:47 PM [employer]): Weight/BMI is in healthy range. Continue healthy lifestyle to maintain. Skin lesion 05/18/2021 Assessment & Plan (01/04/2022 2:24 PM [employer]): [facility] She will reach out to set her own appointment. Assessment & Plan (05/18/2021 12:20 AM CDT): Patient requests referral to derm for full skin evaluation. 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 Continue healthy lifestyle to maintain. Assessment & Plan (12/06/2023 2:23 PM [employer]): Weight/BMI is in healthy range. Continue healthy [...] 05/17/2022 Assessment & Plan (01/04/2022 2:24 PM [employer]): Check labs Lipid screening 01/04/2022 05/17/2022 Assessment & Plan (01/04/2022 2:24 PM [employer]): Check labs Fatigue 01/04/2022 05/17/2022 Assessment & Plan (01/04/2022 2:24 PM [employer]): Probably multifactorial. Check labs and followup to re-evaluate Bacterial conjunctivitis of left eye 05/22/2021 05/17/2022 Assessment & Plan (01/04/2022 2:24 PM [employer]): Her symptoms seem most consistent with a [...] range. Continue healthy lifestyle to maintain. Immunizations Immunization Administration Dates Next Due Influenza, Quadrivalent, Sandra [...] you have a drink containing alcohol? Never 12/28/2024 Q2: How many drinks containi ng alcohol do you have on a typical day when you are drinking? Patient does not drink Q3: How often do you have si x or more drinks on one occasion? Never 12/28/2024 PHQ-2 Answer Date Recorded PHQ-2 Total Score (If total score is 3 or more points, staff should administer the PHQ-9) 0 12/28/2024 [place] Depression Scale Answer Date Recorded [place] Depression Scale Total 10 01/20/2025 The thought of harming myself has occurred to me . Never 01/20/2025 PHQ-9 Answer Date Recorded PHQ-9 Total Score 16 07/12/2024 Estimated Date of Delivery Comme nts Yes 08/31/2025 Based on last me nstrual period of 11/24/2024 Sex and Gender Information Value Date Recorded Sex Assigned at Not on file Legal Sex Female 9:13 AM CDT Gender Identity Not on file Sexual Orientation Not on file Last Filed Vital Signs Vital Sign Reading Time Taken Comments Blood Pressure 100/58 01/20/2025 11:18 AM [employer] Pulse 60 12/28/2024 11:15 AM [employer] Temperature 37 C (98.6 F) 12/28/2024 11:15 AM [employer] Respiratory Rate 20 12/19/2024 8:15 AM [employer] Oxygen Saturation 99% 12/28/2024 11:15 AM [employer] Inhaled Oxygen Concentration - - Weight 78 kg (172 lb) 01/20/2025 11:18 AM [employer] Height 172.7 cm (5' 8 ) 01/20/2025 11:01 AM [employer] Body Mass Index 26.15 01/20/2025 11:01 AM [employer] Plan of Treatment Not on file Procedures Procedure Name Priority Date/Time Associated Diagnosis Comments DRUGS OF ABUSE SCREEN, URINE WITH REFLEX CONFIRMATION Routine 01/20/2025 1:40 PM [employer] Encounter for supervision of other normal in first trimester ANTIBODY SCREEN Routine 01/20/2025 1:39 PM [employer] Encounter for supervision of other normal in first trimester ABO/RH Routine 01/20/2025 1:39 PM [employer] Encounter for supervision of other normal in first trimester CBC WITHOUT DIFFERENTIAL Routine 01/20/2025 1:39 PM [employer] Encounter for supervision of other normal in first trimester HEMOGLOBIN A1C Routine 01/20/2025 1:39 PM [employer] Encounter for supervision of other normal in first trimester HEMOGLOBIN ANALYSIS BY ELECTROPHORESIS Routine 01/20/2025 1:39 PM [employer] Encounter for supervision of other normal in first trimester TYPE AND SCREEN Routine 01/20/2025 1:39 PM [employer] Encounter for supervision of other normal in first trimester HEPATITIS B SURFACE ANTIGEN Routine 01/20/2025 1:39 PM [employer] Encounter for supervision of other normal in first trimester HEPATITIS C ANTIBODY Routine 01/20/2025 1:39 PM [employer] Encounter for supervision of other normal in first trimester HIV 1/2 ANTIBODY PLUS P24 ANTIGEN Routine 01/20/2025 1:39 PM [employer] Encounter for supervision of other normal in first trimester RPR Routine 01/20/2025 1:39 PM [employer] Encounter for supervision of other normal in first trimester RUBELLA IGG Routine 01/20/2025 1:39 PM [employer] Encounter for supervision of other normal in first trimester TRICHOMONAS VAGINALIS PCR Routine 01/20/2025 11:39 AM [employer] Encounter for supervision of other normal in first trimester N. GONORRHOEAE/C. TRACHOMATIS AMPLIFICATION Routine 01/20/2025 11:39 AM [employer] Encounter for supervision of other normal in first trimester URINE CULTURE Routine 01/20/2025 11:39 AM [employer] Encounter for supervision of other normal in first trimester US OB UNDER 14 WEEKS Schedule Routine, Read Routine (OP Routine) 01/20/2025 10:42 AM [employer] Encounter to establish gestational age using ultrasound DIFFERENTIAL AUTO Routine 12/19/2024 9:1 7 AM [employer] Rectal bleeding Altered bowel habits TISSUE TRANSGLUTAMINASE, IGA Routine 12/19/2024 9:17 AM [employer] Rectal bleeding Altered bowel habits ERYTHROCYTE SEDIMENTATION RATE Routine 12/19/2024 9:17 AM [employer] Rectal bleeding Altered bowel habits CBC WITH AUTO DIFFERENTIAL Routine 12/19/2024 9:17 AM [employer] Rectal bleeding Altered bowel habits CRP (ACUTE PHASE) Routine 12/19/2024 9:1 7 AM [employer] Rectal bleeding Altered bowel habits THROAT CULTURE Routine 12/19/2024 9:17 AM [employer] Sore throat POC INFLUENZA A/B, COVID-19 ANTIGEN Routine 12/19/2024 8:37 AM [employer] Sore throat POCT RAPID STREP Routine 12/19/2024 8:32 AM [employer] Sore throat SCAN - LABS 11/13/2024 HIGH RISK HPV DNA DETECTION WITH GENOTYPING Routine 01/29/2024 3:14 PM [employer] Well woman exam from Last 3 Months or Most Recently Relevant to Health Maintenance Results * (ABNORMAL) Drugs of Abuse Screen, Urine with Reflex Confirmation (01/20/2025 1:40 PM [employer]) [facility] Amphetamine, ur Not Detected CutOff 500ng/mL Comment: Interpretive Data - Amphetamines: Samples containing greater than 500 ng/mL d-methamphetamine or other cross-reacting amphetamine compounds are reported as positive. Amphetamine immunoassays are subject to significant false positive rates due to cross-reactivity of non-amphetamine drugs. Confirmatory testing required for definitive results. Current Interpretive Data was last reviewed 2023. Testing performed by: [facility], [address] [place] [address], [place]., [address] Barbiturates, ur Not Detected CutOff 200ng/mL SHERLY LEE Comment: Interpretive Data - Barbiturates: Samples containing greater than 200 ng/mL secobarbital or other cross-reacting barbiturate compounds are reported as positive. False positive and false negative results are possible. Confirmatory testing required for definitive results. Current Interpretive Data was last reviewed 2023. Testing performed by: [facility], [address] [place] [address]., [address] Benzodiazepines, ur Not Detected CutOff 100ng/mL [facility] Comment: Interpretive Data - Benzodiazepines: Samples containing greater than 100 ng/mL nordiazepam or other cross-reacting compounds are reported as positive. False positive and false negative results are possible. Confirmatory testing required for definitive results. Current Interpretive Data was last reviewed 2023. Testing performed by: [address] [address] Cannabinoids, ur Screen Positive, presumptive (A) CutOff 50 ng/mL [facility] Comment: Interpretive Data - Cannabinoids: Samples containing greater than 50 ng/mL delta-9 THC -COOH or other cross- reacting compounds are reported as positive. False positive and false negative results are possible. Confirmatory testing required for definitive results. Current Interpretive Data was last reviewed 2023. Testing performed by: [address] [address] Cocaine, ur Not Detected CutOff 150ng/mL [facility] Comment: Interpretive Data - Cocaine: Samples containing greater than 150 ng/mL benzoylecgonine or other cross- reacting compounds are reported as positive. False positive and false negative results are possible. Confirmatory testing required for definitive results. Current Interpretive Data was last reviewed 2023. Testing performed by: [address] [address] Fentanyl, Ur Not Detected CutOff 5 ng/mL [facility] Comment: Interpretive Data - Fentanyl: Samples containing greater than 1 ng/mL fentanyl or other cross-reacting fentanyl compounds are reported as positive. False positive and false negative results are possible. Confirmatory testing required for definitive results. Current Interpretive Data was last reviewed 2023. Testing performed by: [address] [address] Methadone, ur Not Detected CutOff 300ng/mL [facility] Comment: Interpretive Data - Methadone: Samples containing greater than 300 ng/mL d,l-methadone or other cross-reacting compounds are reported as positive. False positive and false negative results are possible. Confirmatory testing required for definitive results. Current Interpretive Data was last reviewed 2023. Testing performed by: [address] [address] Opiates, ur Not Detected CutOff 300ng/mL SHERLY Comment: Interpretive Data - Opiates: Samples containing greater than 300 ng/mL morphine or other cross-reacting compounds are reported as positive. False positive and false negative results are possible. Confirmatory testing required for definitive results. Current Interpretive Data was last reviewed 2023. Testing performed by: [address] [address] Oxycodone, ur Not Detected CutOff 100ng/mL SHERLY Comment: Interpretive Data - Oxycodone: Samples containing greater than 100 ng/mL oxycodone or other cross-reacting compounds are reported as positive. False positive and false negative results are possible. Confirmatory testing required for definitive results. Current Interpretive Data was last reviewed 2023. Testing performed by: [address] [address] Phencyclidine, ur Not Detected CutOff 25 ng/mL SHERLY Comment: Interpretive Data - Phencyclidine: Samples containing greater than 25 ng/mL phencyclidine or other cross-reacting compounds are reported as positive. False positive and false negative results are possible. Confirmatory testing required for definitive results. Current Interpretive Data was last reviewed 2023. Testing performed by: [address] [address] Urine Creatinine 224 mg/dL SHERLY Comment: Interpretive Data Urine Creatinine: < 10 mg/dL is extremely dilute = or > 10 but < 20 mg/dL is dilute = or > 20 mg/dL is normal Current Interpretive Data was last revised on 2018. Testing performed by: [address] [address] Urine 01/20/2025 1:40 PM [employer] 01/20/2025 3:54 PM [employer] Narrative SHERLY - 01/20/2025 4:42 PM [employer] Drug of Abuse screening is performed by immunoassay for medical purposes only. This is not to be used for Pain Management purposes. If Detected, confirmation testing will be performed for Amphetamines, Cocaine, Fentanyl, Methadone, Opiates, Oxycodone or Phencyclidine. Shiv Gamez MD LAB URINE ORDERABLES Fin al Result Performing Organization Address [facility] Co de Phone Number SHERLY [address] [address] * HIV 1/2 Antibody plus p24 Antigen Blood (01/20/2025 1:39 PM [employer]) Pathologist [facility] HIV 1/2 ab + p24 ag Nonreactive Nonreactive Comment:Nonreactive for HIV- 1 antigen and HIV-1/HIV-2 antibodies. No laboratory evidence of HIV infection. If acute HIV infection is suspected, consider testing for HIV-1 RNA. Current interpretive data was last revised on 22. Blood 01/20/2025 1:39 PM [employer] 01/20/2025 6:58 PM [employer] Shiv Gamez MD LAB MICROBIOLOGY - GENER AL ORDERABLES Final Result Performing Organization Address [facility] de Phone Number SHERLY [address] [address] * (ABNORMAL) Hemoglobin analysis by electrophoresis (01/20/2025 1:39 PM [employer]) [facility] RBC 3.82(L) 3.90 - 5.20 M/cumm Comment:Testing performed by : [facility], [address] [place]., [address] Hgb 11.9 11.9 - 15.5 g/dL SHERLY LEE Comment:Testing performed by : [facility], [address] [place]., [address] MCV 91.4 81.3 - 96.4 fL SHERLY LEE Comment:Testing performed by : [facility], [address] [place]., [address] Rdw 12.7 11.1 - 14.9 % SHERLY LEE Comment:Testing performed by : [facility], [address] [facility], [place]., [address] Hgb electrophores is, interp Normal Hemoglobin Pattern - For Age SHERLY LEE Comment:Testing performed by : [facility], [address] [place]., [address] Hgb A 97.5 96.0 - 98.5 % SHERLY LEE Comment:Testing performed by : [facility], [address] [place]., [address] Hgb A2 2.5 1.5 - 3.2 % SHERLY LEE Comment:Testing performed by : [facility], [address] [facility], [address] Hgb F <0.4 0.0 - 0.9 % SHERLY LEE Comment:Testing performed by : [facility], [address] [place]., [address] Blood 01/20/2025 1:39 PM [employer] 01/20/2025 8:21 PM [employer] us Shiv Gamez MD LAB BLOOD ORDERABLES Fin al Result SHERLY [address] [facility] Department [place] [address] * Hepatitis C antibody Blood (01/20/2025 1:39 PM [employer]) Hep C Ab Nonreactive Nonreactive Comment: Antibodies to HCV not detected. Does NOT exclude the possibility of recent exposure to HCV. Current interpretive data was last revised on 22 Interpretive Data Nonreactive: Antibodies to HCV not detected. Does NOT exclude the possibility of recent exposure to HCV. Equivocal: Equivocal for HCV antibodies. Supplemental molecular testing will be automatically performed to determine infection status in accordance with current CDC screening recommendations. Reactive: Positive for HCV antibodies. This may represent current or past HCV infection. Supplemental molecular testing will be automatically performed to determine current infection status in accordance with current CDC screening recommendations. Interpretive data was last revised on 2020. Blood 01/20/2025 1:39 PM [employer] 01/20/2025 6:58 PM [employer] Shiv Gamez MD LAB MICROBIOLOGY - GENER AL ORDERABLES Final Result Performing Organization Address [facility] de Phone Number [address] [place] [address] * ABO/Rh (01/20/2025 1:39 PM [employer]) ABO/Rh A Positive Comment:Testing performed by : [facility], [address] [place] [address]., [address] Blood 01/20/2025 1:39 PM [employer] 01/20/2025 4:00 PM [employer] Narrative [facility] - 01/20/2025 4:37 PM [employer] Has the patient had Daratumumab or Isatuximab in the past 6 months?->Unknown Hx of or candidate for Bone Marrow/Stem Cell transplant?->No Shiv Gamez MD LAB BLOOD BANK TEST ORDE RABLES Final Result Performing Organization Address [facility] Co de Phone Number [address] [place] [address] * Rubella IgG antibody Blood (01/20/2025 1:39 PM [employer]) [facility] Rubella IgG Reactive Reactive Blood 01/20/2025 1:39 PM [employer] 01/20/2025 6:58 PM [employer] Shiv Gamez MD LAB MICROBIOLOGY - GENER AL ORDERABLES Final Result Performing Organization Address [facility] Co de Phone Number [address] [place] [employer] [place] [address] * RPR Blood (01/20/2025 1:39 PM [employer]) Pathologist [facility] RPR Nonreactive Nonreactive Comment:Testing performed by : [facility], [address] [facility], [place]., [address] Blood 01/20/2025 1:39 PM [employer] 01/20/2025 8:21 PM [employer] Shiv Gamez MD LAB MICROBIOLOGY - GENER AL ORDERABLES Final Result Performing Organization Address [facility] Co de Phone Number [address] [place] [employer] [place] [address] * Hepatitis B Surface Antigen Blood (01/20/2025 1:39 PM [employer]) Pathologist [facility] HepBsAg Nonreactive Nonreactive Blood 01/20/2025 1:39 PM [employer] 01/20/2025 6:58 PM [employer] Shiv Gamez MD LAB MICROBIOLOGY - GENER AL ORDERABLES Final Result Performing Organization Address [facility] de Phone Number [address] [address] * (ABNORMAL) CBC without differential (01/20/2025 1:39 PM [employer]) [facility] WBC 10.7(H) 3.8 - 9.9 K/cumm Comment:Testing performed by : [address] [address] Hgb 12.1 11.9 - 15.5 g/dL SHERLY Comment:Testing performed by : [address] [address] Hct 36.1 35.6 - 45.5 % SHERLY Comment:Testing performed by : [address] [address] Plt 180 150 - 400 K/cumm SHERLY Comment:Testing performed by : [address] [address] MPV 12.1 9.1 - 12.3 fL SHERLY LEE Comment:Testing performed by : [address] [address] RBC 3.96 3.90 - 5.20 M/cumm SHERLY LEE Comment:Testing performed by : [address] [address] MCV 91.2 81.3 - 96.4 fL SHERLY LEE Comment:Testing performed by : [address] [address] MCH 30.6 27.1 - 33.3 pg SHERLY LEE Comment:Testing performed by : [address] [address] MCHC 33.5 32.3 - 35.7 g/dL SHERLY LEE Comment:Testing performed by : [address] [address] RDW CV 12.5 11.1 - 14.9 % SHERLY LEE Comment:Testing performed by : [address] [address] RDW SD 41.3 35.7 - 48.1 fL SHERLY Comment:Testing performed by : [address] [address] NRBC abs 0.00 0.00 - 0.01 K/cumm SHERLY Comment:Testing performed by : [address] [address] Blood 01/20/2025 1:39 PM [employer] 01/20/2025 3:58 PM [employer] Shiv Gamez MD LAB BLOOD ORDERABLES Fin al Result [place] [id number] [facility] Department [place] [address] * Antibody screen (01/20/2025 1:39 PM [employer]) Darlyn, indirect, Gel Interpretation Negative ABSC Comment:Testing performed by : [address] [address] Blood 01/20/2025 1:39 PM [employer] 01/20/2025 4:00 PM [employer] Narrative SHERLY - 01/20/2025 4:37 PM [employer] Has the patient had Daratumumab or Isatuximab in the past 6 months?->Unknown Hx of or candidate for Bone Marrow/Stem Cell transplant?->No Shiv Gamez MD LAB BLOOD BANK TEST DOMINIK LAYNE Final Result SHERLY [address] [address] * Hemoglobin A1c (01/20/2025 1:39 PM [employer]) Pathologist [facility] Hgb A1C 5.4 4.0 - 5.6 % Comment:Testing performed by : [address] [address] Estimated Average Glucose 108 mg/dL SHERLY Comment: The ADA recommends reporting an estimated Average Glucose (eAG) with all Hemoglobin A1c results using the equation derived from a study of 507 normal and diabetic adults. Minority populations were underrepresented and children were not included. (Diabetes Care 31:1312-3484, 2008). The eAG is not equivalent to a fasting glucose. Testing performed by: [address] [address] Blood 01/20/2025 1:3 9 PM [employer] 01/20/2025 3:58 PM [employer] Shiv Gamez MD LAB BLOOD ORDERABLES Fin al Result Performing Organization Address City/[facility] Co de Phone Number SHERLY [address] [place] [address] * N. gonorrhoeae/C. trachomatis Amplification Urine (01/20/2025 11:39 AM [employer]) [facility] C. trachomatis Not Detected [facility] Comment:Testing performed by : [facility], [address] [facility] [place]., [address] N. gonorrhoeae Not Detected SHERLY Comment: Interpretive Data This assay detects Chlamydia trachomatis and Neisseria gonorrhoeae by nucleic acid amplification testing (NAAT). This assay has been cleared by the [place] Food and Drug administration. The performance characteristics of this test have been verified by the [facility] Molecular Infectious Disease laboratory. The performance characteristics of this test have not been evaluated in individuals less than 14 years of age. Current Interpretive Data was last revised on 2023. Testing performed by: [facility], [address] [place] [address]., [address] Urine (None) 01/20/2025 11:3 9 AM [employer] 01/20/2025 10:27 PM [employer] Shiv Gamez MD LAB MICROBIOLOGY - GENER AL ORDERABLES Final Result Performing Organization Address [facility] de Phone Number [address] [place] [address] BJ * Trichomonas vaginalis PCR Urine (01/20/2025 11:39 AM [employer]) Trichomonas DNA Not Detected [facility] Comment: Interpretive Data This assay detects Trichomonas vaginalis by nucleic acid amplification testing (NAAT). This assay has been cleared by the [place] Food and Drug administration. The performance characteristics of this test have been verified by the [facility] Molecular Infectious Disease laboratory. The performance of this test has not been evaluated in individuals less than 18 years of age. Current Interpretive Data was last revised on 2023. Testing performed by: [facility], [address] [place] [address]., [address] Urine 01/20/2025 11:3 9 AM [employer] 01/20/2025 10:27 PM [employer] Shiv Gamez MD LAB MICROBIOLOGY - GENER AL ORDERABLES Final Result Performing Organization Address [facility] de Phone Number [address] [address] BJ * Urine culture Urine, clean voided (01/20/2025 11:39 AM [employer]) Report Final Report: No growth Comment:Testing performed by : [facility], [address] [place] [address]., [address] Urine, clean voided 01/20/2025 11:39 AM [employer] 01/20/2025 10:11 PM [employer] Narrative SHERLY - 01/22/2025 7:24 AM [employer] Testing performed by [facility] Microbiology Laboratory ([phone]) Shiv Gamez MD LAB MICROBIOLOGY - GENER AL ORDERABLES Final Result SHERLY [address] [facility] Department [place] [address] * US Ob Under 14 Weeks (01/20/2025 10:42 AM [employer]) Heart Rate 173 bpm CRL 1.8 cm Anatomical Region Laterality Modality Abdomen N/A Ultrasound Narrative 01/20/2025 1:12 PM [employer] Indication: new ob, dating number: 1 GA by LMP 11/24/24 8w1d OMID 08/31/25 GA by today's exam 8w2d OMID 08/30/25 CRL 1.8 cm FHR 173 bpm [employer] comments: Retroflexed uterus. Single IUP with positive cardiac activity seen. No tello. Ultrasound dates are consistent with LMP. Bilateral ovaries imaged, both wnl. No adnexal masses or free fluid. Physician Interpretation Reason for exam: OB Dating Single, live IUP identified with cardiac activity of 173 bpm. Based on today's crown-rump length, the estimated gestational age is 8w2d which is consistent with LMP for OMID of 08/31/25. Bilateral ovaries appear normal. No other abnormalities identified. Recommend: f/u US 18-22wga for anatomic survey. Shiv Gamez MD Sihv Gamez MD IMG OB US PROCEDURES Donte gray Result - Final * Differential, auto (12/19/2024 9:17 AM [employer]) Neutrophil abs 4.7 1.5 - 6.5 K/cumm Imm gran abs 0.0 0.0 - 0.1 K/cumm [facility] Lymphocyte abs 2.6 0.8 - 3.3 K/cumm [facility] Monocyte abs 0.6 0.2 - 0.8 K/cumm [facility] Eosinophil abs 0.1 0.0 - 0.5 K/cumm [facility] Basophil abs 0.0 0.0 - 0.1 K/cumm [facility] Neutrophil pct 58.2 % [facility] Comment: Interpretive Data Percent cell count reference ranges are not reported, since discordance with absolute values may lead to misinterpretation of CBC data. Current Interpretive Data was last revised on 2018. Imm gran pct 0.4 % [facility] Comment: Interpretive Data Percent cell count reference ranges are not reported, since discordance with absolute values may lead to misinterpretation of CBC data. Current Interpretive Data was last revised on 2018. Lymphocyte pct 32.9 % [facility] Comment: Interpretive Data Percent cell count reference ranges are not reported, since discordance with absolute values may lead to misinterpretation of CBC data. Current Interpretive Data was last revised on 2018. Monocyte pct 7.1 % [facility] Comment: Interpretive Data Percent cell count reference ranges are not reported, since discordance with absolute values may lead to misinterpretation of CBC data. Current Interpretive Data was last revised on 2018. Eosinophil pct 0.9 % [facility] Comment: Interpretive Data Percent cell count reference ranges are not reported, since discordance with absolute values may lead to misinterpretation of CBC data. Current Interpretive Data was last revised on 2018. Basophil pct 0.5 % [facility] Comment: Interpretive Data Percent cell count reference ranges are not reported, since discordance with absolute values may lead to misinterpretation of CBC data. Current Interpretive Data was last revised on 2018. Blood 12/19/2024 9:17 AM [employer] 12/19/2024 4:16 PM [employer] Nathaly GONZÁLES LAB BLOOD ORDERABLES Fi nal Result SHERLY FISH [id number] [place] [address] * (ABNORMAL) CBC with auto differential (12/19/2024 9:17 AM [employer]) WBC 8.0 3.8 - 9.9 K/cumm Hgb 13.2 11.9 - 15.5 g/dL [facility] Hct 41.6 35.6 - 45.5 % [facility] Plt 199 150 - 400 K/cumm [facility] MPV 11.8 9.1 - 12.3 fL [facility] RBC 4.36 3.90 - 5.20 M/cumm [facility] MCV 95.4 81.3 - 96.4 fL [facility] MCH 30.3 27.1 - 33.3 pg [facility] MCHC 31.7(L) 32.3 - 35.7 g/dL [facility] RDW CV 12.6 11.1 - 14.9 % [facility] RDW SD 44.2 35.7 - 48.1 fL [facility] NRBC abs 0.00 0.00 - 0.01 K/cumm [facility] Blood 12/19/2024 9:17 AM [employer] 12/19/2024 4:16 PM [employer] Nathaly GONZÁLES LAB BLOOD ORDERABLES Fi nal Result SHERLY [address] [address] [place] [address] * Tissue transglutaminase IgA (TGG-IgA Ab) (12/19/2024 9:17 AM [employer]) Pathologist [facility] TTG ab, IgA <0.5 <=14.9 units/mL Comment: Interpretive data Negative: <15 units/mL Positive: > or equal to 15 units/mL Current interpretive data was last revised on 2017. Testing performed by: [facility], [address] [facility], [place]., [address] Blood 12/19/2024 9:17 AM [employer] 12/20/2024 10:21 AM [employer] Nathaly GONZÁLES LAB BLOOD ORDERABLES Fi nal Result SHERLY [address] [address] [place] [employer] [place] [address] * Erythrocyte sedimentation rate (12/19/2024 9:17 AM [employer]) Erythrocyte sedimentation rate 11 1 - 20 mm/hr Blood 12/19/2024 9:17 AM [employer] 12/19/2024 4:16 PM [employer] Nathaly GONZÁLES LAB BLOOD ORDERABLES Fi nal Result Performing Organization Address [facility] Co de Phone Number SHERLY [address] [address] [place] [employer] [place] [address] * (ABNORMAL) Throat culture Throat (12/19/2024 9:17 AM [employer]) Report Final Report: Streptococcus pyogenes (Group A Streptococci) Streptococcus pyogenes is uniformly susceptible to beta-lactam antibiotics and vancomycin. Routine susceptibility testing is not performed. (.) Comment:Testing performed by : [facility], [address] [place]., [address] Organism STREPTOCOCCUS PYOGENES (GROUP A STREPTOCOCCI) [facility] Throat 12/19/2024 9:17 AM [employer] 12/19/2024 4:45 PM [employer] Narrative SHERLY - 12/21/2024 8:32 AM [employer] Testing performed by [facility] Microbiology Laboratory ([phone]). Beba Joseph NP LAB MICROBIOLOGY - GENERAL ORDERABLES Final Result Performing Organization Address [facility]/ZIP Co de Phone Number SHERLY [address] [place] [place] [employer] [place] [address] * CRP (acute phase) (12/19/2024 9:17 AM [employer]) CRP <3.0 <=10.0 mg/L Blood 12/19/2024 9:17 AM [employer] 12/19/2024 4:16 PM [employer] Nathaly GONZÁLES LAB BLOOD ORDERABLES Fi nal Result SHERLY [place] [address] [address] [place] [address] * POC Influenza A/B, COVID-19 antigen (12/19/2024 8:37 AM [employer]) Influenza A Ag, POC Negative Negative [facility] Influenza B Ag, POC Negative Negative [facility] COVID-19 Ag POC Presumptive Negative Presumptive Negative, Invalid [facility] Nasal 12/19/2024 8:37 AM [employer] Beba Joseph NP POINT OF CARE TEST ORDERAB LES Final Result [facility] [address] [place] [address] * POCT rapid strep A (12/19/2024 8:32 AM [employer]) [facility] Rapid Strep A, POC Negative Negative Swab 12/19/2024 8:32 AM [employer] Beba Joseph NP POINT OF CARE TEST ORDERAB LES Final Result * SCAN - LABS (11/13/2024) Provider Scanning Edited Result - Final * High Risk HPV DNA Detection with Genotyping (Molecular component) (01/29/2024 3:14 PM [employer]) Pathologist [facility] HPV HR 16 Not Detected Not Detected [facility] Comment:Testing performed by : [facility], [address] [facility], [place]., [address] HPV HR 18 Not Detected Not Detected SHERLY LEE Comment:Testing performed by : [facility], [address] [facility], [place]., [address] HPV HR Non 16/18 Not Detected Not Detected SHERLY LEE Comment: Interpretive Data Nucleic acid amplification for detection of high-risk Human Papilloma virus (HPV) is performed by the Azael Amy 6800 HPV test. This assay specifically detects HPV-16 and HPV-18 genotypes. The following HPV genotypes are detected as high-risk HPV: HPV-31, 33, 35, ,39, 45, 51, 52, [...] this test have been verified by the [facility] Molecular Infectious Disease laboratory. Correlate with separately reported cytology results, as applicable. Interpretive data last revised 23 Testing performed by: [facility], [address] [place] [address] Endocervical 01/29/2024 3:14 PM [employer] 02/02/2024 9:38 AM CDT Narrative [facility] 02/03/2024 4:46 AM CDT Clinical history and diagnosis->screening Testing type->Screening Last menstrual period (date if known)->iud Ly Gonsalez MD LAB BODY FLUIDS AND STOOL S ORDERABLES Final Result [facility] [address] [facility] Department [place] [address] [facility] from Last 3 Months or Most Recently Relevant to Health Maintenance Insurance Proxible OOS Rapid RMS ACCESS OOS Rapid RMS ACCESS OOS Care Teams Obstetrics Nurse Relationship Specialty Start Date End Date Rita Sykes PA [address] [facility] [address] [facility] [address] [place] [address] PCP - General Internal Medicine 04/05/21
--- OUTSIDE RECORDS SUMMARY | 2025-02-04 12:46 | XMS_ITS | Clinical Summary ---
Author Organization [facility] [address] [facility] Address [address] [place] [address] Care Team Providers Care Exhibits Manager Name Role Phone Rita Sykes Primary Care Provider [phone] Allergies Active Allergy Reactions Criticality Noted Date [...] 30 tablet 2 01/12/20 25 Active vit 31-mrys-tzebs-dha 27mg iron- 800 mcg-250 mg capsule Take [...] 01/08/2025 Assessment & Plan (01/08/2025 3:37 PM STORY ANALYST): Patient has noticed right wrist pain. 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 And encouraged symptomatic treatment available [id number]. Symptoms worsen or do not resolve or [...] 024 Assessment & Plan (01/08/2024 9:13 AM STORY ANALYST): 2010 -- Dr Dale in [place] Right dismembered pyleoplasty Flank pain 01/08/2024 Assessment & Plan (01/10/2024 11:14 PM STORY ANALYST): Patient was treated for UTI last week. [...] 11/30/2023 Assessment & Plan (12/06/2023 2:23 PM STORY ANALYST): Check labs Diabetes mellitus screening 11/30/2023 Assessment & Plan (01/10/2024 11:12 PM STORY ANALYST): Check labs Assessment & Plan (12/06/2023 2:23 PM STORY ANALYST): Check labs Fatigue 11/30/2023 Assessment & Plan (01/10/2024 11:12 PM STORY ANALYST): Probably multifactorial. Check labs and followup to re-evaluate Assessment & Plan (12/06/2023 2:24 PM STORY ANALYST): Probably multifactorial. Check labs and followup to [...] 11/30/2023 Assessment & Plan (12/06/2023 2:24 PM STORY ANALYST): Continue per Psychiatry History of COVID-19 11/30/2023 Assessment & Plan (12/06/2023 2:24 PM STORY ANALYST): Recent history of COVID. She is feeling much better. Insomnia 06/12/2023 Assessment & Plan (06/12/2023 4:08 PM CDT): Patient has been following with psychiatrist up near [place]. She is no longer able to see her. Trying to establish with a local psychiatrist but needs assistance with medications as she has been off her medications for a couple of days now. Tried sending the Klonopin to [facility] but this is not preferred by her [...] Overview (12/06/2023): Managed by MAXINE Lopez in [place], [place] via telemedicine 2022-- transferred to Dr. Marielle Pickett Assessment & Plan (12/06/2023 2:23 PM STORY ANALYST): Managed by Dr. Pickett - Psychiatry Continue Adderall and Klonopin. She feels like her anxiety is really out of control and is going to work with Dr. Pickett to adjust medications. Assessment & Plan (06/12/2023 4:06 PM CDT): Patient has been following with psychiatrist up near [place]. She is no longer able to see her. Trying to establish with a local psychiatrist but needs assistance with medications as she has been off her medications for a couple of days now. Tried sending the Klonopin to [facility] but this is not preferred by her [...] 05/17/2022 Assessment & Plan (12/06/2023 2:23 PM STORY ANALYST): Managed by Dr. Pickett - Psychiatry Continue Adderall and Klonopin. She feels like her anxiety is really out of control and is going to work with Dr. Pickett to adjust medications. Assessment & Plan (06/12/2023 4:08 PM CDT): Patient has been following with psychiatrist up near [place]. She is no longer able to see her. Trying to establish with a local psychiatrist but needs assistance with medications as she has been off her medications for a couple of days now. Tried sending the Klonopin to [facility] but this is not preferred by her [...] 01/02/2022 Assessment & Plan (01/08/2025 3:35 PM STORY ANALYST): Weight/BMI is in healthy range. Continue healthy lifestyle to maintain. Assessment & Plan (07/23/2024 9:48 PM CDT): Weight/BMI is in healthy range. Continue healthy lifestyle to maintain. Assessment & Plan (05/16/2024 11:30 PM CDT): Weight/BMI is in healthy range. Continue healthy lifestyle to maintain. Assessment & Plan (01/02/2022 1:47 PM STORY ANALYST): Weight/BMI is in healthy range. Continue healthy lifestyle to maintain. Skin lesion 05/18/2021 Assessment & Plan (01/04/2022 2:24 PM STORY ANALYST): [facility]erral made to [facility]. She will [...] 024 Assessment & Plan (01/10/2024 11:12 PM STORY ANALYST): Weight/BMI is in healthy range. Continue healthy lifestyle to maintain. Assessment & Plan (12/06/2023 2:23 PM STORY ANALYST): Weight/BMI is in healthy range. Continue healthy [...] 05/17/2022 Assessment & Plan (01/04/2022 2:24 PM STORY ANALYST): Check labs Lipid screening 01/04/2022 05/17/2022 Assessment & Plan (01/04/2022 2:24 PM STORY ANALYST): Check labs Fatigue 01/04/2022 05/17/2022 Assessment & Plan (01/04/2022 2:24 PM STORY ANALYST): Probably multifactorial. Check labs and followup to re-evaluate Bacterial conjunctivitis of left eye 05/22/2021 05/17/2022 Assessment & Plan (01/04/2022 2:24 PM STORY ANALYST): Her symptoms seem most consistent with a [...] Department Care Team Description 02/04/2025 Orders Only [facility] [address] [place] [phone] Zahra Mcdaniel MD 01/23/2025 Results Follow-Up [facility] [address] [place] [address] Shiv Gamez MD 01/20/2025 1:30 PM STORY ANALYST Lab [facility] [address] [address] Encounter for supervision of other normal in first trimester 01/20/2025 1:14 PM STORY ANALYST - 01/20/2025 11:59 PM STORY ANALYST Hospital Encounter [facility] [address] [address] Encounter for supervision of other normal in first trimester Discharge Disposition: Discharge to home or self care 01/20/2025 11:30 AM STORY ANALYST Office Visit [facility] [address] [place] [phone] Shiv Gamez MD Encounter for supervision of other normal in first trimester (Primary Dx); Bipolar disorder in remission 01/20/2025 11:00 AM STORY ANALYST Clinical Support [facility] [address] [place] [address] [place] [phone] 01/20/2025 10:15 AM STORY ANALYST Clinical Support [facility] [address] [place] [address] [place] [phone] Encounter to establish gestational age using ultrasound (Primary Dx) 01/02/[address] [place] [phone] Rita Sykes PA Forms Request 12/28/2024 11:00 AM STORY ANALYST Office Visit [address] [place] [phone] Rita Sykes PA Right wrist pain; BMI 26.0-26.9,adult 12/27/2024 Nurse Triage [address] [place] [phone] Rita Sykes PA 12/21/2024 Orders Only [facility] [address] [phone] Berna Lewis, MAXINE Strep throat (Primary Dx) 12/19/2024 9:17 AM STORY ANALYST - 12/19/2024 11:59 PM STORY ANALYST Hospital Encounter [address] [address] Sore throat; Rectal bleeding; Altered bowel habits Discharge Disposition: Discharge to home or self care 12/19/2024 9:00 AM STORY ANALYST Lab [facility] at [address] [phone] Acute cough (Primary Dx) 12/19/2024 8:15 AM STORY ANALYST Office Visit [facility] [address] [phone] Beba Joseph, MAXINE Sore throat (Primary Dx); Acute cough 11/21/2024 Nurse Triage [address] [place] [phone] Rita Sykes PA 11/18/2024 3:30 PM STORY ANALYST Office Visit [facility] [address] [facility] [address] [place] [address] Genie De Anda, MAXINE Fever blister (Primary Dx); BMI 25.0-25.9,adult 11/15/2024 Telephone [facility] [address] [facility] [address] [place] [phone] Rita Sykes PA 11/13/2024 Orders Only [facility] Information Management [address] [place] [address] Scanning, Provider from Last 3 Months Immunizations Immunization Administration Dates Next Due Influenza, [...] - 11/22/2011 Right APPENDECTOMY 11/23/2010 - 11/22/2011 Medical History Medical History Date Comments at early stage 1st danielle ointment us 02/02/2025. At that time should be around 10 weeks. Depression Anxiety Family History Medical History Relation Name Comments [...] staff should administer the PHQ-9) 0 12/28/2024 Hampton Depression Scale Answer Date Recorded Hampton Depression Scale Total 10 01/20/2025 The thought [...] SAB Ectopic Multiple Livin g Live Births 2 1 1 1 1 Date Outcome GA Total Labor Labor/2nd/3rd Weight Sex Type Anes PTL Danelle A1 A5 Name Clin 021 Term 39w 0d 3.685 kg (8 lb 2 oz) F Vag-S pont Epidur al N Livin g Complications:None Delivery Location:[facility] Current Summary Episode Dates Number of Fetuses Estimated Date of Delivery 01/20/2025 - Present (02/04/2025) 1 08/31/2025 (set by Amaya Martines RN on 01/20/2025 based on Last Menstrual Period on 11/24/2024) Dating Summary Based On OMID GA Diff Last Menstrual Period on 11/24/2024 08/31/2025 Working Ultrasound on 01/20/2025 08/30/2025 +1d GA:8w2d Overview and Plan :Jauregui Support person:Margot Delivery Plans Planned delivery method:Vaginal Planned delivery location:[facility] Overview Surveillance of EDC by LMP = 8 week US A+/I/-/-, HIV and RPR NR Genetics: Anatomy: 20 weeks GCT: 26-28 weeks 3rd trim CBC/HIV/RPR Tdap: 27+ weeks GBS: 36 weeks, or sooner if early delivery indicated Social Barriers: none Mode of feeding: Method of contraception: Delivery Planning: TBD Vitals Pregravid Weight Height TWG (As of 02/04/2025) Pregrav id BMI 78 kg (172 lb) 172.7 cm (5' 8 ) 0 kg (0 lb) 26.16 Notes Progress Notes - Clinical Harman pport - 01/20/2025 - GA:8w1d 01/20/2025 - 8w1d - Amaya Martines, RILEY Patient is overall doing well today. No issues to report. Dating US completed in office. OMID reviewed with the pt. PNL ordered today. NIPT discussed with the pt. She would like to complete at 11 weeks. Pap is up to date. STI urine to be sent to the lab. Tdap recommendations reviewed with the pt. Depression/ anxiety, EPDS completed in office. OB call schedule reviewed with the pt. NOB packet reviewed with the pt and her questions were answered. Y ANALYST Progress Notes - Office Visi t - 01/20/2025 - GA:8w1d 01/20/2025 - 8w1d - Ana María Gamez MD New OB Visit CC: Chief Complaint Patient presents with Initial Visit HPI: Erika Childs is a 34 y.o. female at 8w1d here for new OB visit. Patient reports no acute concerns G1: - no complications Denies vb, lof, ctxs Denies YOUNGBLOOD/altered vision/CP/SOB/abdominal pain/significant edema/LE discomfort. OB History 2 Para 1 Term 1 AB Living 1 SAB IAB Ectopic Multiple Live Births 1 Past Medical History: Diagnosis Date Anxiety Depression at early stage 1st appointment us 02/02/2025. At that time should be around 10 weeks. Past Surgical History: Procedure Laterality Date APPENDECTOMY 2011 PYELOPLASTY Right 2011 REFRACTIVE SURGERY Bilateral 2017 Family History Problem Relation Age of Onset Depression Mother Anxiety disorder Mother Heart attack Father Hypertension Father Anxiety disorder Father Depression Father Breast cancer Father's Sister Ovarian cancer Neg Hx Uterine cancer Neg Hx Colon cancer Neg Hx reports that she has never smoked. She has never used smokeless tobacco. denies consuming alcoholic drinks. reports that she does not currently use drugs after having used the following drugs: Marijuana. Allergies Allergen Reactions Aripiprazole Nausea only Medications: Current Outpatient Medications: doxylamine-pyridoxine, vit B6, (DICLEGIS) 10-10 mg tablet, Take 2 tablets by mouth nightly, Disp: 60 tablet, Rfl: 2 metoclopramide (REGLAN) 10 mg tablet, Take 1 tablet (10 mg total) by mouth every 6 (six) hours as needed (nausea), Disp: 30 tablet, Rfl: 2 vit 20-hysb-negct-dha 27mg iron- 800 mcg-250 mg capsule, Take by mouth, Disp: , Rfl: dextroamphetamine-amphetamine (ADDERALL) 20 mg tablet, , Disp: , Rfl: [address] (CYMBALTA) 60 mg capsule, Take 1 capsule (60 mg total) by mouth daily (Patient not taking: Reported on 11/18/2024), Disp: , Rfl: lisdexamfetamine (VYVANSE) 30 mg capsule, Take by mouth daily (Patient not taking: Reported on 11/18/2024), Disp: , Rfl: meloxicam (MOBIC) 7.5 mg tablet, Take 1 tablet (7.5 mg total) by mouth daily as needed for pain (Patient not taking: Reported on 11/18/2024), Disp: 90 tablet, Rfl: 0 mirtazapine (REMERON) 15 mg tablet, , Disp: , Rfl: Vraylar 3 mg capsule capsule, TAKE 1 CAPSULE BY MOUTH EVERY DAY AT BEDTIME (Patient not taking: Reported on 11/18/2024), Disp: , Rfl: Immunization History Administered Date(s) Administered Influenza, Quadrivalent, Cell Culture-based MDCK, Preservative Free, Antibiotic Free, Intramuscular 11/11/2018 Influenza, Quadrivalent, Split, Preservative Free, Intramuscular 01/14/2021 Influenza, Trivalent, IM (MDV) 08/08/2016 Influenza, Trivalent, Preservative Free, Intramuscular 11/05/2015 Influenza, Unspecified 11/23/2021 Meningococcal MCV4P (Menactra) 07/07/2008 PPD TEST 06/25/2015 Pfizer SARS-CoV-2 Monovalent Vaccination (12+ Yrs) PURPLE 02/01/2021, 02/22/2021, 10/26/2021 Tdap 06/07/2015, 11/11/2015 Review of Systems: 10 systems reviewed and negative, except for those mentioned in HPI. Physical Exam BP 100/58 Wt 172 lb (78 kg) LMP 11/24/2024 BMI 26.15 kg/m Body mass index is 26.15 kg/m . TW lb (0 kg) Heart Rate: +US General: over weight female, pleasant, in no acute distress HEENT: normocephalic, atraumatic, nose normal, conjunctivae normal Lungs: Normal effort, no respiratory distress Abdomen: soft, nontender, nondistended Skin: warm, well-perfused Neuro: No focal deficits Psych: alert; normal mood and affect ASSESSMENT / PLAN: Erika Childs is a 34 y.o. female at 8w1d here for new OB visit. Diagnosis Plan 1. Encounter for supervision of other normal in first trimester CBC without differential Drugs of Abuse Screen, Urine with Reflex Confirmation Hemoglobin A1c Hemoglobin analysis by electrophoresis Hepatitis B Surface Antigen Blood Hepatitis C antibody Blood HIV 1/2 Antibody plus p24 Antigen Blood RPR Blood Rubella IgG antibody Blood Type and screen Urine culture Urine, clean voided N. gonorrhoeae/C. trachomatis Amplification Urine Trichomonas vaginalis PCR Urine 2. Bipolar disorder in remission (CMS/HCC) ([facility]) Surveillance of EDC by LMP = 8 week US Labs: ordered Genetics: desires - plan for 11wk draw Anatomy: 20 weeks GCT: 26-28 weeks 3rd trim CBC/HIV/RPR Tdap: 27+ weeks GBS: 36 weeks, or sooner if early delivery indicated Social Barriers: none Mode of feeding: Method of contraception: Delivery Planning: TBD Bipolar/ADHD - previously on Cymbalta, Adderall, Vyvanse, Remeron - has discontinued all since start of ; doing well no acute concerns; will reassess through Counseled to call or return for vaginal bleeding, regular contractions, leakage of fluid or decreased movement. Oriented to clinic and care. packet reviewed and all patient questions answered. Follow-up: 4wks Rhea Gamez MD Y ANALYST Last Filed Vital Signs Vital Sign Reading Time Taken Comments Blood Pressure 100/58 01/20/2025 11:18 AM STORY ANALYST Pulse 60 12/28/2024 11:15 AM STORY ANALYST Temperature 37 C (98.6 F) 12/28/2024 11:15 AM STORY ANALYST Respiratory Rate 20 12/19/2024 8:15 AM STORY ANALYST Oxygen Saturation 99% 12/28/2024 11:15 AM STORY ANALYST Inhaled Oxygen Concentration - - Weight 78 kg (172 lb) 01/20/2025 11:18 AM STORY ANALYST Height 172.7 cm (5' 8 ) 01/20/2025 11:01 AM STORY ANALYST Body Mass Index 26.15 01/20/2025 11:01 AM STORY ANALYST Plan of Treatment Health Maintenance Due Date Last Done Comments Varicella Vaccines (1 of 2 - 13+ [...] or Tdap) 11/11/2025 11/11/2015, 06/07/2015 Depression Screening 01/20/2026 01/20/2025, 12/28/2024, 11/18/2024, Additional history exists Hepatitis C Screening Completed 01/20/2025 HPV Vaccines Aged Out No longer eligi ble based on patient's age to complete this topic Pneumococcal vaccine <65 Aged Out No longer eligible based on patient's age to complete this topic Procedures Procedure Name Priority Date/Time Associated Diagnosis Comments DRUGS OF ABUSE SCREEN, URINE WITH REFLEX CONFIRMATION Routine 01/20/2025 1:40 PM STORY ANALYST Encounter for supervision of other normal in first trimester ANTIBODY SCREEN Routine 01/20/2025 1:39 PM STORY ANALYST Encounter for supervision of other normal in first trimester ABO/RH Routine 01/20/2025 1:39 PM STORY ANALYST Encounter for supervision of other normal in first trimester CBC WITHOUT DIFFERENTIAL Routine 01/20/2025 1:39 PM STORY ANALYST Encounter for supervision of other normal in first trimester HEMOGLOBIN A1C Routine 01/20/2025 1:39 PM STORY ANALYST Encounter for supervision of other normal in first trimester HEMOGLOBIN ANALYSIS BY ELECTROPHORESIS Routine 01/20/2025 1:39 PM STORY ANALYST Encounter for supervision of other normal in first trimester TYPE AND SCREEN Routine 01/20/2025 1:39 PM STORY ANALYST Encounter for supervision of other normal in first trimester HEPATITIS B SURFACE ANTIGEN Routine 01/20/2025 1:39 PM STORY ANALYST Encounter for supervision of other normal in first trimester HEPATITIS C ANTIBODY Routine 01/20/2025 1:39 PM STORY ANALYST Encounter for supervision of other normal in first trimester HIV 1/2 ANTIBODY PLUS P24 ANTIGEN Routine 01/20/2025 1:39 PM STORY ANALYST Encounter for supervision of other normal in first trimester RPR Routine 01/20/2025 1:39 PM STORY ANALYST Encounter for supervision of other normal in first trimester RUBELLA IGG Routine 01/20/2025 1:39 PM STORY ANALYST Encounter for supervision of other normal in first trimester TRICHOMONAS VAGINALIS PCR Routine 01/20/2025 11:39 AM STORY ANALYST Encounter for supervision of other normal in first trimester N. GONORRHOEAE/C. TRACHOMATIS AMPLIFICATION Routine 01/20/2025 11:39 AM STORY ANALYST Encounter for supervision of other normal in first trimester URINE CULTURE Routine 01/20/2025 11:39 AM STORY ANALYST Encounter for supervision of other normal in first trimester US OB UNDER 14 WEEKS Schedule Routine, Read Routine (OP Routine) 01/20/2025 10:42 AM STORY ANALYST Encounter to establish gestational age using ultrasound DIFFERENTIAL AUTO Routine 12/19/2024 9:1 7 AM STORY ANALYST Rectal bleeding Altered bowel habits TISSUE TRANSGLUTAMINASE, IGA Routine 12/19/2024 9:17 AM STORY ANALYST Rectal bleeding Altered bowel habits ERYTHROCYTE SEDIMENTATION RATE Routine 12/19/2024 9:17 AM STORY ANALYST Rectal bleeding Altered bowel habits CBC WITH AUTO DIFFERENTIAL Routine 12/19/2024 9:17 AM STORY ANALYST Rectal bleeding Altered bowel habits CRP (ACUTE PHASE) Routine 12/19/2024 9:1 7 AM STORY ANALYST Rectal bleeding Altered bowel habits THROAT CULTURE Routine 12/19/2024 9:17 AM STORY ANALYST Sore throat POC INFLUENZA A/B, COVID-19 ANTIGEN Routine 12/19/2024 8:37 AM STORY ANALYST Sore throat POCT RAPID STREP Routine 12/19/2024 8:32 AM STORY ANALYST Sore throat SCAN - LABS 11/13/2024 HIGH RISK HPV DNA DETECTION WITH GENOTYPING Routine 01/29/2024 3:14 PM STORY ANALYST Well woman exam from Last 3 Months or Most Recently Relevant to Health Maintenance Results * (ABNORMAL) Drugs of Abuse Screen, Urine with Reflex Confirmation (01/20/2025 1:40 PM STORY ANALYST) [facility] Amphetamine, ur Not Detected CutOff 500ng/mL Comment: Interpretive Data - Amphetamines: Samples containing greater than 500 ng/mL d-methamphetamine or other cross-reacting amphetamine compounds are reported as positive. Amphetamine immunoassays are subject to significant false positive rates due to cross-reactivity of non-amphetamine drugs. Confirmatory testing required for definitive results. Current Interpretive Data was last reviewed 2023. Testing performed by: [address] [id number] Barbiturates, ur Not Detected CutOff 200ng/mL [facility] Comment: Interpretive Data - Barbiturates: Samples containing greater than 200 ng/mL secobarbital or other cross-reacting barbiturate compounds are reported as positive. False positive and false negative results are possible. Confirmatory testing required for definitive results. Current Interpretive Data was last reviewed 2023. Testing performed by: [address] [address] Benzodiazepines, ur Not Detected CutOff 100ng/mL [facility] Comment: Interpretive Data - Benzodiazepines: Samples containing greater than 100 ng/mL nordiazepam or other cross-reacting compounds are reported as positive. False positive and false negative results are possible. Confirmatory testing required for definitive results. Current Interpretive Data was last reviewed 2023. Testing performed by: [address] [address] Cannabinoids, ur Screen Positive, presumptive (A) CutOff 50 ng/mL [facility] Comment: Interpretive Data - Cannabinoids: Samples containing greater than 50 ng/mL delta-9 THC -COOH or other cross- reacting compounds are reported as positive. False positive and false negative results are possible. Confirmatory testing required for definitive results. Current Interpretive Data was last reviewed 2023. Testing performed by: [address] [address] Cocaine, ur Not Detected CutOff 150ng/mL [facility] Comment: Interpretive Data - Cocaine: Samples containing greater than 150 ng/mL benzoylecgonine or other cross- reacting compounds are reported as positive. False positive and false negative results are possible. Confirmatory testing required for definitive results. Current Interpretive Data was last reviewed 2023. Testing performed by: [facility], [address] [place] [address]., [id number] Fentanyl, Ur Not Detected CutOff 5 ng/mL [facility] Comment: Interpretive Data - Fentanyl: Samples containing greater than 1 ng/mL fentanyl or other cross-reacting fentanyl compounds are reported as positive. False positive and false negative results are possible. Confirmatory testing required for definitive results. Current Interpretive Data was last reviewed 2023. Testing performed by: [address] [address] Methadone, ur Not Detected CutOff 300ng/mL [facility] Comment: Interpretive Data - Methadone: Samples containing greater than 300 ng/mL d,l-methadone or other cross-reacting compounds are reported as positive. False positive and false negative results are possible. Confirmatory testing required for definitive results. Current Interpretive Data was last reviewed 2023. Testing performed by: [address] [address] Opiates, ur Not Detected CutOff 300ng/mL [facility] Comment: Interpretive Data - Opiates: Samples containing greater than 300 ng/mL morphine or other cross-reacting compounds are reported as positive. False positive and false negative results are possible. Confirmatory testing required for definitive results. Current Interpretive Data was last reviewed 2023. Testing performed by: [address] [address] Oxycodone, ur Not Detected CutOff 100ng/mL [facility] Comment: Interpretive Data - Oxycodone: Samples containing greater than 100 ng/mL oxycodone or other cross-reacting compounds are reported as positive. False positive and false negative results are possible. Confirmatory testing required for definitive results. Current Interpretive Data was last reviewed 2023. Testing performed by: [address] [address] Phencyclidine, ur Not Detected CutOff 25 ng/mL [facility] Comment: Interpretive Data - Phencyclidine: Samples containing greater than 25 ng/mL phencyclidine or other cross-reacting compounds are reported as positive. False positive and false negative results are possible. Confirmatory testing required for definitive results. Current Interpretive Data was last reviewed 2023. Testing performed by: [facility], [address] [place] [address]., [id number] Urine Creatinine 224 mg/dL [facility] Comment: Interpretive Data Urine Creatinine: < 10 mg/dL is extremely dilute = or > 10 but < 20 mg/dL is dilute = or > 20 mg/dL is normal Current Interpretive Data was last revised on 2018. Testing performed by: [facility], [address] [place] [address]., [address] Urine 01/20/2025 1:40 PM STORY ANALYST 01/20/2025 3:54 PM STORY ANALYST Narrative SHERLY - 01/20/2025 4:42 PM STORY ANALYST Drug of Abuse screening is performed by immunoassay for medical purposes only. This is not to be used for Pain Management purposes. If Detected, confirmation testing will be performed for Amphetamines, Cocaine, Fentanyl, Methadone, Opiates, Oxycodone or Phencyclidine. Shiv Gamez MD LAB URINE ORDERABLES Fin al Result Performing Organization Address [facility] Co de Phone Number [facility] [address] [facility] Department [place] [address] * HIV 1/2 Antibody plus p24 Antigen Blood (01/20/2025 1:39 PM STORY ANALYST) [facility] HIV 1/2 ab + p24 ag Nonreactive Nonreactive Comment:Nonreactive for HIV- 1 antigen and HIV-1/HIV-2 antibodies. No laboratory evidence of HIV infection. If acute HIV infection is suspected, consider testing for HIV-1 RNA. Current interpretive data was last revised on 22. Blood 01/20/2025 1:39 PM STORY ANALYST 01/20/2025 6:58 PM STORY ANALYST Shiv Gamez MD LAB MICROBIOLOGY - GENER AL ORDERABLES Final Result Performing Organization Address City/[facility] Co de Phone Number SHERLY LEE [address] [facility] Department [place] [address] * (ABNORMAL) Hemoglobin analysis by electrophoresis (01/20/2025 1:39 PM STORY ANALYST) RBC 3.82(L) 3.90 - 5.20 M/cumm Comment:Testing performed by : [facility], [address] [facility], [address] Hgb 11.9 11.9 - 15.5 g/dL SHERLY LEE Comment:Testing performed by : [facility], [address] [facility], [address] MCV 91.4 81.3 - 96.4 fL SHERLY LEE Comment:Testing performed by : [facility], [address] [facility], [address] Rdw 12.7 11.1 - 14.9 % SHERLY LEE Comment:Testing performed by : [facility], [address] [facility], [address] Hgb electrophores is, interp Normal Hemoglobin Pattern - For Age SHERLY LEE Comment:Testing performed by : [facility], [address] [facility], [address] Hgb A 97.5 96.0 - 98.5 % SHERLY LEE Comment:Testing performed by : [facility], [address] [facility], [address] Hgb A2 2.5 1.5 - 3.2 % SHERLY LEE Comment:Testing performed by : [facility], [address] [facility], [address] Hgb F <0.4 0.0 - 0.9 % SHERLY LEE Comment:Testing performed by : [facility], [address] [facility], [address] Blood 01/20/2025 1:39 PM STORY ANALYST 01/20/2025 8:21 PM STORY ANALYST Shiv Gamez MD LAB BLOOD ORDERABLES Fin al Result Performing Organization Address [facility] Co de Phone Number SHERLY [address] [address] * Hepatitis C antibody Blood (01/20/2025 1:39 PM STORY ANALYST) Hep C Ab Nonreactive Nonreactive Comment: Antibodies [...] revised on 2020. Blood 01/20/2025 1:39 PM STORY ANALYST 01/20/2025 6:58 PM STORY ANALYST Shiv Gamez MD LAB MICROBIOLOGY - GENER AL ORDERABLES Final Result Performing Organization Address [facility] de Phone Number [address] [place] [address] * ABO/Rh (01/20/2025 1:39 PM STORY ANALYST) Pathologist [facility] ABO/Rh A Positive Comment:Testing performed by : [facility], [address] [place] [address]., [address] Blood 01/20/2025 1:39 PM STORY ANALYST 01/20/2025 4:00 PM STORY ANALYST Narrative [facility] 01/20/2025 4:37 PM STORY ANALYST Has the patient had Daratumumab or Isatuximab in the past 6 months?->Unknown Hx of or candidate for Bone Marrow/Stem Cell transplant?->No Shiv Gamez MD LAB BLOOD BANK TEST ORDE RABLES Final Result Performing Organization Address [facility] Co de Phone Number [address] [place] [address] * Rubella IgG antibody Blood (01/20/2025 1:39 PM STORY ANALYST) Pathologist [facility] Rubella IgG Reactive Reactive Blood 01/20/2025 1:39 PM STORY ANALYST 01/20/2025 6:58 PM STORY ANALYST Shiv Gamez MD LAB MICROBIOLOGY - GENER AL ORDERABLES Final Result Performing Organization Address [facility] Co de Phone Number [address] [place] [address] * RPR Blood (01/20/2025 1:39 PM STORY ANALYST) [facility] RPR Nonreactive Nonreactive Comment:Testing performed by : [facility], [address] [facility] [place]., [address] Blood 01/20/2025 1:39 PM STORY ANALYST 01/20/2025 8:21 PM STORY ANALYST Shiv Gamez MD LAB MICROBIOLOGY - GENER AL ORDERABLES Final Result Performing Organization Address [facility] Co de Phone Number [address] [place] [address] * Hepatitis B Surface Antigen Blood (01/20/2025 1:39 PM STORY ANALYST) [facility] HepBsAg Nonreactive Nonreactive Blood 01/20/2025 1:39 PM STORY ANALYST 01/20/2025 6:58 PM STORY ANALYST Shiv Gamez MD LAB MICROBIOLOGY - GENER AL ORDERABLES Final Result Performing Organization Address [facility] Co de Phone Number [address] [place] [address] * (ABNORMAL) CBC without differential (01/20/2025 1:39 PM STORY ANALYST) WBC 10.7(H) 3.8 - 9.9 K/cumm Comment:Testing performed by : [address] [address] Hgb 12.1 11.9 - 15.5 g/dL SHERLY Comment:Testing performed by : [address] [address] Hct 36.1 35.6 - 45.5 % SHERLY Comment:Testing performed by : [address] [address] Plt 180 150 - 400 K/cumm SHERLY Comment:Testing performed by : [address] [address] MPV 12.1 9.1 - 12.3 fL SHERLY Comment:Testing performed by : [address] [address] RBC 3.96 3.90 - 5.20 M/cumm SHERLY Comment:Testing performed by : [address] [address] MCV 91.2 81.3 - 96.4 fL SHERLY Comment:Testing performed by : [address] [address] MCH 30.6 27.1 - 33.3 pg SHERLY Comment:Testing performed by : [address] [address] MCHC 33.5 32.3 - 35.7 g/dL SHERLY Comment:Testing performed by : [address] [address] RDW CV 12.5 11.1 - 14.9 % SHERLY Comment:Testing performed by : [address] [address] RDW SD 41.3 35.7 - 48.1 fL SHERLY Comment:Testing performed by : [address] [address] NRBC abs 0.00 0.00 - 0.01 K/cumm SHERLY Comment:Testing performed by : [address], [address] Blood 01/20/2025 1:39 PM STORY ANALYST 01/20/2025 3:58 PM STORY ANALYST Shiv Gamez MD LAB BLOOD ORDERABLES Fin al Result Performing Organization Address City/[facility]/ZIP Co de Phone Number SHERLY [facility] [place] [address] * Antibody screen (01/20/2025 1:39 PM STORY ANALYST) Pathologist [facility] Darlyn, indirect, Gel Interpretation Negative ABSC Comment:Testing performed by : [address] [address] Blood 01/20/2025 1:39 PM STORY ANALYST 01/20/2025 4:00 PM STORY ANALYST Narrative SHERLY - 01/20/2025 4:37 PM STORY ANALYST Has the patient had Daratumumab or Isatuximab in the past 6 months?->Unknown Hx of or candidate for Bone Marrow/Stem Cell transplant?->No Shiv Gamez MD LAB BLOOD BANK TEST ORDE RABLES Final Result Performing Organization Address [facility] Co de Phone Number [address] [address] * Hemoglobin A1c (01/20/2025 1:39 PM STORY ANALYST) Pathologist [facility] Hgb A1C 5.4 4.0 - 5.6 % Comment:Testing performed by : [address] [address] Estimated Average Glucose 108 mg/dL SHERLY Comment: The ADA recommends reporting an estimated Average Glucose (eAG) with all Hemoglobin A1c results using the equation derived from a study of 507 normal and diabetic adults. Minority populations were underrepresented and children were not included. (Diabetes Care 31:6572-0905, 2008). The eAG is not equivalent to a fasting glucose. Testing performed by: [address] [address] Blood 01/20/2025 1:39 PM STORY ANALYST 01/20/2025 3:58 PM STORY ANALYST Shiv Gamez MD LAB BLOOD ORDERABLES Fin al Result Performing Organization Address [facility] de Phone Number SHERLY [address] [address] * N. gonorrhoeae/C. trachomatis Amplification Urine (01/20/2025 11:39 AM STORY ANALYST) Pathologist [facility] C. trachomatis Not Detected [facility] Comment:Testing performed by : [facility], [address] [place] [address]., [address] N. gonorrhoeae Not Detected [facility] Comment: Interpretive Data This assay detects Chlamydia trachomatis and Neisseria gonorrhoeae by nucleic acid amplification testing (NAAT). This assay has been cleared by the [place] Food and Drug administration. The performance characteristics of this test have been verified by the [facility] Molecular Infectious Disease laboratory. The performance characteristics of this test have not been evaluated in individuals less than 14 years of age. Current Interpretive Data was last revised on 2023. Testing performed by: [facility], [address] [place]., [address] Urine (None) 01/20/2025 11:3 9 AM STORY ANALYST 01/20/2025 10:27 PM STORY ANALYST Shiv Gamez MD LAB MICROBIOLOGY - GENER AL ORDERABLES Final Result Performing Organization Address [facility] de Phone Number SHERLY [address] [place] [address] [facility] * Trichomonas vaginalis PCR Urine (01/20/2025 11:39 AM STORY ANALYST) [facility] Trichomonas DNA Not Detected [facility] Comment: Interpretive Data This assay detects Trichomonas vaginalis by nucleic acid amplification testing (NAAT). This assay has been cleared by the [place] Food and Drug administration. The performance characteristics of this test have been verified by the [facility] Molecular Infectious Disease laboratory. The performance of this test has not been evaluated in individuals less than 18 years of age. Current Interpretive Data was last revised on 2023. Testing performed by: [facility], [address] [place]., [address] Urine 01/20/2025 11:3 9 AM STORY ANALYST 01/20/2025 10:27 PM STORY ANALYST Shiv Gamez MD LAB MICROBIOLOGY - GENER AL ORDERABLES Final Result Performing Organization Address [facility] de Phone Number [address] [place] [address] [facility] * Urine culture Urine, clean voided (01/20/2025 11:39 AM STORY ANALYST) Report Final Report: No growth Comment:Testing performed by : [facility], [address] [place] [address]., [address] Urine, clean voided 01/20/2025 11:39 AM STORY ANALYST 01/20/2025 10:11 PM STORY ANALYST Narrative SHERLY - 01/22/2025 7:24 AM STORY ANALYST Testing performed by [facility] Microbiology Laboratory ([phone]) Shiv Gamez MD LAB MICROBIOLOGY - GENER AL ORDERABLES Final Result Performing Organization Address [facility] de Phone Number [address] [address] * US Ob Under 14 Weeks (01/20/2025 10:42 AM STORY ANALYST) Heart Rate 173 bpm CRL 1.8 cm Anatomical Region Laterality Modality Abdomen N/A Ultrasound Narrative 01/20/2025 1:12 PM STORY ANALYST Indication: new ob, dating number: 1 GA by LMP 11/24/24 8w1d OMID 08/31/25 GA by today's exam 8w2d OMID 08/30/25 CRL 1.8 cm FHR 173 bpm Capacity Planning Manager comments: Retroflexed uterus. Single IUP with positive [...] 18-22wga for anatomic survey. Shiv Gamez MD us Shiv Gamez MD IMG OB US PROCEDURES Donte gray Result - Final * Differential, auto (12/19/2024 9:17 AM STORY ANALYST) Neutrophil abs 4.7 1.5 - 6.5 K/cumm Imm gran abs 0.0 0.0 - 0.1 K/cumm [facility] Lymphocyte abs 2.6 0.8 - 3.3 K/cumm [facility] Monocyte abs 0.6 0.2 - 0.8 K/cumm [facility] Eosinophil abs 0.1 0.0 - 0.5 K/cumm [facility] Basophil abs 0.0 0.0 - 0.1 K/cumm [facility] CH Neutrophil pct 58.2 % C[facility]ER Comment: Interpretive Data Percent cell count reference ranges are not reported, since discordance with absolute values may lead to misinterpretation of CBC data. Current Interpretive Data was last revised on 2018. Imm gran pct 0.4 % C[facility]ER Comment: Interpretive Data Percent cell count reference ranges are not reported, since discordance with absolute values may lead to misinterpretation of CBC data. Current Interpretive Data was last revised on 2018. Lymphocyte pct 32.9 % C[facility]ER Comment: Interpretive Data Percent cell count reference ranges are not reported, since discordance with absolute values may lead to misinterpretation of CBC data. Current Interpretive Data was last revised on 2018. Monocyte pct 7.1 % [facility] Comment: Interpretive Data Percent cell count reference ranges are not reported, since discordance with absolute values may lead to misinterpretation of CBC data. Current Interpretive Data was last revised on 2018. Eosinophil pct 0.9 % CERNER Comment: Interpretive Data Percent cell count reference ranges are not reported, since discordance with absolute values may lead to misinterpretation of CBC data. Current Interpretive Data was last revised on 2018. Basophil pct 0.5 % C[facility]ER Comment: Interpretive Data Percent cell count reference ranges are not reported, since discordance with absolute values may lead to misinterpretation of CBC data. Current Interpretive Data was last revised on 2018. Blood 12/19/2024 9:17 AM STORY ANALYST 12/19/2024 4:16 PM STORY ANALYST Nathaly GONZÁLES LAB BLOOD ORDERABLES Fi nal Result [facility] [address] Department [place] [address] * (ABNORMAL) CBC with auto differential (12/19/2024 9:17 AM STORY ANALYST) WBC 8.0 3.8 - 9.9 K/cumm Hgb 13.2 11.9 - 15.5 g/dL [facility] Hct 41.6 35.6 - 45.5 % [facility] Plt 199 150 - 400 K/cumm [facility] MPV 11.8 9.1 - 12.3 fL [facility] RBC 4.36 3.90 - 5.20 M/cumm [facility] MCV 95.4 81.3 - 96.4 fL [facility] MCH 30.3 27.1 - 33.3 pg [facility] MCHC 31.7(L) 32.3 - 35.7 g/dL [facility] RDW CV 12.6 11.1 - 14.9 % [facility] RDW SD 44.2 35.7 - 48.1 fL [facility] NRBC abs 0.00 0.00 - 0.01 K/cumm [facility] Blood 12/19/2024 9:17 AM STORY ANALYST 12/19/2024 4:16 PM STORY ANALYST Nathaly GONZÁLES LAB BLOOD ORDERABLES Fi nal Result Performing Organization Address [facility] de Phone Number SHERLY FISH [address] [address] [facility] [place] [address] * Tissue transglutaminase IgA (TGG-IgA Ab) (12/19/2024 9:17 AM STORY ANALYST) TTG ab, IgA <0.5 <=14.9 units/mL Comment: Interpretive data Negative: <15 units/mL Positive: > or equal to 15 units/mL Current interpretive data was last revised on 2017. Testing performed by: [facility], [address] [place] [address]., [address] Blood 12/19/2024 9:17 AM STORY ANALYST 12/20/2024 10:21 AM STORY ANALYST Nathaly Barraganella GONZÁLES LAB BLOOD ORDERABLES Fi nal Result Performing Organization Address [facility] de Phone Number SHERLY [address] [place] [address] * Erythrocyte sedimentation rate (12/19/2024 9:17 AM STORY ANALYST) Pathologist [facility] Erythrocyte sedimentation rate 11 1 - 20 mm/hr Blood 12/19/2024 9:17 AM STORY ANALYST 12/19/2024 4:16 PM STORY ANALYST Nathaly GONZÁLES LAB BLOOD ORDERABLES Fi nal Result Performing Organization Address [facility] [place] [address] [address] [place] [address] * (ABNORMAL) Throat culture Throat (12/19/2024 9:17 AM STORY ANALYST) Pathologist [facility] Report Final Report: Streptococcus pyogenes (Group A Streptococci) Streptococcus pyogenes is uniformly susceptible to beta-lactam antibiotics and vancomycin. Routine susceptibility testing is not performed. (.) Comment:Testing performed by : [facility], [address] [place] [address] Organism STREPTOCOCCUS PYOGENES (GROUP A STREPTOCOCCI) SHERLY Throat 12/19/2024 9:17 AM STORY ANALYST 12/19/2024 4:45 PM STORY ANALYST Narrative SHERLY - 12/21/2024 8:32 AM STORY ANALYST Testing performed by [facility] Microbiology Laboratory ([phone]). Beba Joseph NP LAB MICROBIOLOGY - GENERAL ORDERABLES Final Result SHERLY FISH [address] Department [place] [address] * CRP (acute phase) (12/19/2024 9:17 AM STORY ANALYST) Pathologist [facility] CRP <3.0 <=10.0 mg/L Blood 12/19/2024 9:17 AM STORY ANALYST 12/19/2024 4:16 PM STORY ANALYST Nathaly GONZÁLES LAB BLOOD ORDERABLES Fi nal Result Performing Organization Address [facility]/ZIP Co de Phone Number SHERLY FISH [address] [address] Department [place] [address] * POC Influenza A/B, COVID-19 antigen (12/19/2024 8:37 AM STORY ANALYST) Influenza A Ag, POC Negative Negative [facility] Influenza B Ag, POC Negative Negative [facility] COVID-19 Ag POC Presumptive Negative Presumptive Negative, Invalid [facility] Nasal 12/19/2024 8:37 AM STORY ANALYST Beba Joseph TERMINOLOGIST POINT OF CARE TEST ORDERAB LES Final Result Performing Organization Address City/[facility]/ZIP Co de Phone Number [facility] [address] [place] [address] * POCT rapid strep A (12/19/2024 8:32 AM STORY ANALYST) Rapid Strep A, POC Negative Negative Swab 12/19/2024 8:32 AM STORY ANALYST Beba Joseph NP POINT OF CARE TEST ORDERAB LES Final Result * SCAN - LABS (11/13/2024) Provider Scanning Edited Result - Final * High Risk HPV DNA Detection with Genotyping (Molecular component) (01/29/2024 3:14 PM STORY ANALYST) [facility] HPV HR 16 Not Detected Not Detected [facility] Comment:Testing performed by : [facility], [address] [place]., [address] HPV HR 18 Not Detected Not Detected SHERLY LEE Comment:Testing performed by : [facility], [address] [place]., [address] HPV HR Non 16/18 Not Detected Not [...] this test have been verified by the [facility] Molecular Infectious Disease laboratory. Correlate with separately reported cytology results, as applicable. Interpretive data last revised 23 Testing performed by: [facility], [address] [place]., [address] Endocervical 01/29/2024 3:14 PM STORY ANALYST 02/02/2024 9:38 AM CDT Narrative SHERLY LEE - 02/03/2024 4:46 AM CDT Clinical history and diagnosis->screening Testing type->Screening Last menstrual period (date if known)->iud Ly Gonsalez MD LAB BODY FLUIDS AND STOOL S ORDERABLES Final Result [facility] [address] [facility] [place] [address] BJ from Last 3 Months or Most Recently Relevant to Health Maintenance Insurance Arrively OOS Arrively OOS Arrively OOS Care Teams Exhibits Manager Relationship Specialty Start Date End Date Rita Sykes PA [address] [facility] [place] [address] PCP - General Internal Medicine 04/05/21
--- OUTSIDE RECORDS SUMMARY | 2025-02-04 12:46 | XMS_ITS | Encounter Summary ---
Author Organization [facility] Healthcare Address [address] [place] [address] Care Team Providers Care Toddler Guide Name Role Phone Rita Sykes Primary Care Provider [phone] Encounter Details Date Type Department Care Team (Late st Contact Info) Description 02/04/2025 Orders Only [facility] Obstetrical Gynecology [address] [facility] [address] [place] [phone] Zahra Mcdaniel MD [address] [facility] [address] [place] [address] Social History Tobacco Use Types Packs/Day [...] staff should administer the PHQ-9) 0 12/28/2024 [place] Depression Scale Answer Date Recorded [place] Depression Scale Total 10 01/20/2025 The thought [...] Refills Last Filled Start Date End Date prochlorperazine (COMPAZINE) 5 mg tablet Take 1 tablet (5 mg total) by mouth every 6 (six) hours as needed for nausea or vomiting 30 tablet 02/04/2025 ondansetron ODT (ZOFRAN-ODT) 4 mg disintegrating tablet Take 1 tablet (4 mg total) by mouth every 8 (eight) hours as needed for nausea or vomiting 20 tablet 1 02/04/2025 documented in this encounter Plan of Treatment Not on file documented as of this encounter Visit Diagnoses Not on filedocumented in this encounter Discontinued Medications Medication Sig Discontinue Reason Start Date End Da te Vraylar 3 mg capsule capsule TAKE 1 CAPSULE BY MOUTH EVERY DAY AT BEDTIME Patient Reported 2024 02/04/2025 documented as of this encounter Care Teams Toddler Guide Relationship Specialty Start Date End Date Rita Sykes PA [address] [place] [address] PCP - General Internal Medicine 04/05/21 documented as of this encounter
--- OUTSIDE RECORDS SUMMARY | 2025-02-04 12:46 | XMS_ITS | Clinical Summary ---
Author Organization [facility] Address [facility] [place] [address] Care Team Providers Care Clipper Automatic Name Role Phone Unavailable Primary Care Provider Unavailabl e Source Comments [facility],non-owned Affiliates and Associated Physician Practices is amultiple site organization consisting of ambulatory clinics and hospital sitesin [place], [place], [place] and [place]. This disclosure is being madepursuant to the Care Everywhere program and may not contain all information available regarding this patient. Last updated 18.[facility] Allergies No known active allergies Medications * Be aware that medications may not be up to date on this document. Alwaysverify current medications with the patient. Medication Sig Dispensed Refills Start Date End Date Status naloxone HCl (Narcan) 4 MG/0.1ML nasal spray [place] 1 (one) spray into the nose as [...] Mass Index - - Plan of Treatment Health Maintenance Due Date Last Done Comments PAP SMEAR 1991 HIV SCREENING 2006 HEPATITIS C SCREENING 08/10/2009 DTAP/TDAP/TD VACCINES (1 - Tdap) 2010 HEPATITIS B VACCINE (1 of 3 - 19+ 3-dose series) 2010 COVID-19 VACCINE (1 - 2023-2 5 season) 2024 INFLUENZA VACCINE (#1) 2024 DEPRESSION SCREENING 11/23/2024 ZOSTER VACCINE (1 of 2) 2041 HIB VACCINE Aged Out No longer eligi ble based on patient's age to complete this topic HPV VACCINE Aged Out No longer eligi ble based on patient's age to complete this topic MENINGOCOCCAL (Group B) VACC INE SHARED DECISION-MAKING Aged Out No longer eligibl e based on patient's age to complete this topic MENINGOCOCCAL GROUPS A/C/Y/W VACCINE Aged Out No longer eligible b ased on patient's age to complete this topic PNEUMOCOCCAL VACCINE Aged Out No long er eligible based on patient's age to complete this topic
--- OUTSIDE RECORDS SUMMARY | 2025-02-04 12:46 | XMS_ITS | Clinical Summary ---
Author Organization [facility] Address [facility] [place] [address] Care Team Providers Care Cupola Tapper Name Role Phone New Referring, Provider Primary [...] supervision of other normal in third trimester ([facility]) 01/12/2021 0 01/13/2021 Immunizations Name Administration [...] declined 01/12/2021 How often do you attend confucianism or latter day serv ices? Patient declined 01/12/2021 Do you belong to any clubs o r organizations such as confucianism groups, unions, fraternal or athletic groups, or [...] and heating? Not hard at all 01/12/2021 [facility] ional [facility] - [...] on file Legal Sex Female 12:55 PM STEEL PLATE PRINTER Gender Identity Not on file Sexual Orientation Not on file Last Filed Vital Signs Vital Sign Reading Time Taken Comments Blood Pressure 111/46 01/14/2021 7:30 AM STEEL PLATE PRINTER Pulse 61 01/14/2021 7:30 AM STEEL PLATE PRINTER Temperature 36.3 C (97.3 F) 01/14/2021 7:30 AM STEEL PLATE PRINTER Respiratory Rate 16 01/13/2021 8:00 PM STEEL PLATE PRINTER Oxygen Saturation 99% 01/14/2021 7:30 AM STEEL PLATE PRINTER Inhaled Oxygen Concentration - - Weight 97.1 kg (214 lb) 01/12/2021 7:51 PM STEEL PLATE PRINTER Height 172.7 cm (5' 8 ) 01/12/2021 7:51 PM STEEL PLATE PRINTER Body Mass Index 32.54 01/12/2021 7:51 PM STEEL PLATE PRINTER Plan of Treatment Health Maintenance Due Date [...] Screening wi th HPV 2021 COVID-19 Vaccine (2023-2 5 season) 2024 Influenza Adult (#1) 2024 01/14/2021, 11/11/2018, 08/08/2016 DTaP, Tdap and Td Vaccines ( 2 - Td or Tdap) 06/07/2025 06/07/2015 Meningococcal Vaccine Aged Out 07/07/2008 No giuseppe elton eligible based on patient's age to complete this topic HPV Vaccines Aged Out No longer eligi ble based on patient's age to complete this topic Meningococcal B Vaccine Aged Out No l onger eligible based on patient's age to complete this topic Pneumococcal Vaccine: Pediatrics (0 to 5 Years) and At-Risk Patients (6 to 64 Years) Aged Out No longer eligible b ased on patient's age to complete this topic RSV Immunizations Under 20 Months Aged Out No longer eligible b ased on patient's age to complete this topic Insurance Advance Directives * Full Code (Latest Code Status on File) Date Activated Date Inactivated Comments 01/12/2021 8:05 PM 01/14/2021 10:05 PM Care Teams Cupola Tapper Relationship Specialty Start Date End Date New Referring, Provider PCP - General UNKNOWN PHYSICIAN SPECIALTY 01/09/21
--- OUTSIDE RECORDS SUMMARY | 2025-02-04 12:46 | XMS_ITS | Encounter Summary ---
Author Organization [facility] Address [address] [place] [address] Care Team Providers Care Trouble Clerk Name Role Phone New Referring, Provider Primary Care Provider Un available Encounter Details Date Type Department Care Team (Late st Contact Info) Description 01/20/2021 Hospital Follow-up Call [facility] [place] [address] Berenice Sam RN Social History Tobacco Use Types Packs/Day [...] declined 01/12/2021 How often do you attend adventism or orthodoxy serv ices? Patient declined 01/12/2021 Do you belong to any clubs o r organizations such as adventism groups, unions, fraternal or athletic groups, or [...] and heating? Not hard at all 01/12/2021 [facility] of Occupat ional Health - Occupational Stress [...] on file Legal Sex Female 12:55 PM RESIDENTIAL ROOFER Gender Identity Not on file Sexual Orientation Not on file COVID-19 Exposure Response Date Recorded In the last month, have you been in contact with someone who was confirmed or suspected to have Coronavirus / COVID-19? No / Unsure 01/12/2021 7:52 PM RESIDENTIAL ROOFER documented as of this encounter Functional Status * RETIRED Are you deaf or do you have serious difficulty hearing Answer Date of Assessment Author Status No 01/12/2021 8:53 PM RESIDENTIAL ROOFER Activ e * RETIRED Are you blind or do you have serious difficulty seeing, even when wearing glasses? Answer Date of Assessment Author Status No 01/12/2021 8:53 PM RESIDENTIAL ROOFER Activ e * Do you have serious difficulty walking or climbing stairs? Answer Date of Assessment Author Status No 01/12/2021 8:53 PM RESIDENTIAL ROOFER Randi Mckay R N Active * Do you have difficulty dressing or bathing? Answer Date of Assessment Author Status No 01/12/2021 8:53 PM RESIDENTIAL ROOFER Randi Mckay R N Active * Because of a physical, mental, or emotional condition, do you have difficulty doing errands alone such as visiting a doctor's office or shopping? Answer Date of Assessment Author Status No 01/12/2021 8:53 PM RESIDENTIAL ROOFER Randi Mckay R N Active documented as of this encounter Mental Status * Because of a physical, mental, or emotional condition, do you have serious difficulty concentrating, remembering, or making decisions? Answer Entry Date Author Status No 01/12/2021 8:53 PM RESIDENTIAL ROOFER Randi Mckay R N Active documented in this encounter Plan of Treatment Not on file documented as of this encounter Visit Diagnoses Not on filedocumented in this encounter Care Teams Trouble Clerk Relationship Specialty Start Date End Date New Referring, Provider PCP - General UNKNOWN PHYSICIAN SPECIALTY 01/09/21 documented as of this encounter
--- OUTSIDE RECORDS SUMMARY | 2025-02-04 12:46 | XMS_ITS | Patient Health Summary ---
Author Organization [facility] [employer] Address [facility] [place] [address] Care Team Providers Care Tooling Engineering Tech Name Role Phone Unavailable Primary Care Provider Unavailabl e Note from [facility],non-owned Affiliates and Associated Physician Practices is amultiple site organization consisting of ambulatory clinics and hospital sitesin [place], [place], [place] and [place]. This disclosure is being madepursuant to the Care Everywhere program and may not contain all information available regarding this patient. Last updated 18.[facility] [employer] Allergies No known active allergies Medications * Be aware that medications may not be up to date on this document. Alwaysverify current medications with the patient. * naloxone HCl (Narcan) 4 MG/0.1ML nasal spray(Started 09/21/2023) [place] 1 (one) spray into the nose as needed Social History Tobacco Use Types Packs/Day Years [...] - - Body Mass Index - - Procedures * HCG BETA BLOOD QUANTITATIVE(Performed 09/21/2023) * DERMATOPATHOLOGY(Performed 04/23/2022) Results * HCG BETA BLOOD QUANTITATIVE (09/21/2023 6:46 AM CDT) Beta-hCG Total Quantitative <3 mIU/mL 09/21/2023 7:37 AM CDT [facility] Comment: HCG Numeric Result Interpretation: Non- Females: < 5 mIU/mL Post-Menopausal Females: < 7 mIU/mL This assay is cleared for use in the early detection of only. It is not approved for any other uses such as tumor marker screening, tumor marker monitoring, etc. and should not be used for any other purposes. Blood BLOOD SPECIMEN / Unknown Venipuncture / Unknown 09/21/2023 6:46 AM CDT 09/21/2023 6:50 AM CDT Haley Self MD LAB - CHEMISTRY DOMINIK LAYNE [address] [address], [facility] [phone] * DERMATOPATHOLOGY (04/23/2022 12:00 AM CDT) Case Report Dermatopathology Report Case: [id number] Authorizing Provider: Dianna Lee, Collected: 04/23/2022 12:00 AM MACHINE CARTON MARKER-TABLET COATER Ordering Location: [facility] DermPath Lab Received: 04/24/2022 11:05 AM Pathologist: Lonny Auguset MD Specimens: A) - Skin, right thigh B) - Skin, mid lower back 2 5:30 PM CDT DERMATOPATHOLOGY LABORATORY Final Diagnosis Specimen A. SKIN, right thigh: JUNCTIONAL MELANOCYTIC NEVUS (D22.71) POST-INFLAMMATORY PIGMENT ALTERATION (L81.9) Specimen B. SKIN, mid lower back: LENTIGINOUS MELANOCYTIC NEVUS, JUNCTIONAL TYPE (JUNCTIONAL MELANOCYTIC NEVUS WITH ARCHITECTURAL DISORDER) (D22.5) 2 5:30 PM CDT DERMATOPATHOLOGY LABORATORY Clinical History A-B: Irregular color, nevus R/O atypia. 2 5:30 PM CDT DERMATOPATHOLOGY LABORATORY Gross Description Specimen A: Received is one formalin filled container labeled with the patient's name and designated right thigh. The specimen consists of a shave biopsy measuring [id number]. Jar 0. Specimen B: Received is one formalin filled container labeled with the patient's name and designated mid lower back. The specimen consists of a shave biopsy measuring [id number]. Jar 0. 2 5:30 PM CDT DERMATOPATHOLOGY LABORATORY Microscopic Description Specimen A. SKIN, right thigh: There are nests of melanocytes at the dermal-epidermal junction.Sections show abundant melanin within melanophages around the superficial vascular plexus. Specimen B. SKIN, mid lower back: This is a junctional nevus. There is architectural disorder characterized by a lentiginous proliferation of melanocytes between irregular nevus nests of cells along the dermal-epidermal junction. There is underlying lamellar fibroplasia of the papillary dermis. (Junctional Avery's Nevus or Junctional Dysplastic Nevus) 2 5:30 PM CDT DERMATOPATHOLOGY LABORATORY Disclaimer An external and internal positive and negative controls are appropriate for the histochemical, immunohistochemical and immunofluorescence stain(s) in this case (if any), except where stated explicitly. The performance characteristics of the stain(s) cited in this report were developed and its performance characteristic determined by the Dermatopathology Laboratory at [facility], directed by Dr. Jay Auguste. These tests need not be, and therefore are not, approved by the [place] Food and Drug Administration. The tests are used for clinical purposes. Billing Codes Specimen Charges Stain Charges 32925 09991 1 1 2 5:30 PM CDT DERMATOPATHOLOGY LABORATORY Embedded Images 2 5:30 PM CDT DERMATOPATHOLOGY LABORATORY Pathology/Cytology TISSUE SPECIMEN FROM SKIN / Unknown 04/23/2022 04/24/2022 11:05 AM CDT Miscellaneous samples (specimen) TISSUE SPECIMEN FROM SKIN / Unknown 04/23/2022 04/24/2022 11:05 AM CDT Dianna Lee APRN-TABLET COATER LAB - PATH OLOGY/CYTOLOGY ORDERABLES DERMATOPATHOLOGY LABORATORY [facility] - Department of Dermatology [address], [address] [phone]
--- OUTSIDE RECORDS SUMMARY | 2025-02-04 12:46 | XMS_ITS | Encounter Summary ---
Author Organization [facility] Address [address] [place] [address] Care Team Providers Care Body Mechanic Name Role Phone Rita Sykes Primary Care Provider [phone]- [phone] Encounter Details Date Type Department Care Team (Late st Contact Info) Description 01/23/2025 Results Follow-Up [facility] [address] [id number] Shiv Gamez MD [address] [place] [address] Social History Tobacco Use Types Packs/Day Years [...] staff should administer the PHQ-9) 0 12/28/2024 [place] Depression Scale Answer Date Recorded [place] Depression Scale Total 10 01/20/2025 The thought [...] on filedocumented in this encounter Care Teams Body Mechanic Relationship Specialty Start Date End Date Rita Sykes PA [facility] [address] PCP - General Internal Medicine 04/05/21 documented as of this encounter
--- OUTSIDE RECORDS SUMMARY | 2025-02-04 15:32 | XMS_ITS | Encounter Summary ---
Author Organization [facility] Address [address] [place] [address] Care Team Providers Care Beamster Name Role Phone New Referring, Provider Primary Care Provider Un available Encounter Details Date Type Department Care Team (Late st Contact Info) Description 01/20/2021 Hospital Follow-up Call [facility] [place] [address] Berenice Sam RN Social History [...] declined 01/12/2021 How often do you attend scientologist or jehovah's witness serv ices? Patient declined 01/12/2021 Do you belong to any clubs o r organizations such as scientologist groups, unions, fraternal or athletic groups, or [...] and heating? Not hard at all 01/12/2021 [facility] [place] of Occupat ional Health - Occupational Stress [...] on file Legal Sex Female 12:55 PM PUBLIC RELATIONS PROFESSIONAL Gender Identity Not on file Sexual Orientation Not on file COVID-19 Exposure Response Date Recorded In the last month, have you been in contact with someone who was confirmed or suspected to have Coronavirus / COVID-19? No / Unsure 01/12/2021 7:52 PM PUBLIC RELATIONS PROFESSIONAL documented as of this encounter Functional Status * RETIRED Are you deaf or do you have serious difficulty hearing Answer Date of Assessment Author Status No 01/12/2021 8:53 PM PUBLIC RELATIONS PROFESSIONAL Activ e * RETIRED Are you blind or do you have serious difficulty seeing, even when wearing glasses? Answer Date of Assessment Author Status No 01/12/2021 8:53 PM PUBLIC RELATIONS PROFESSIONAL Activ e * Do you have serious difficulty walking or climbing stairs? Answer Date of Assessment Author Status No 01/12/2021 8:53 PM PUBLIC RELATIONS PROFESSIONAL Randi Mckay R N Active * Do you have difficulty dressing or bathing? Answer Date of Assessment Author Status No 01/12/2021 8:53 PM PUBLIC RELATIONS PROFESSIONAL Randi Mckay R N Active * Because of a physical, mental, or emotional condition, do you have difficulty doing errands alone such as visiting a doctor's office or shopping? Answer Date of Assessment Author Status No 01/12/2021 8:53 PM PUBLIC RELATIONS PROFESSIONAL Randi Mckay R N Active documented as of this encounter Mental Status * Because of a physical, mental, or emotional condition, do you have serious difficulty concentrating, remembering, or making decisions? Answer Entry Date Author Status No 01/12/2021 8:53 PM PUBLIC RELATIONS PROFESSIONAL Randi Mckay R N Active documented in this encounter Plan of Treatment Not on file documented as of this encounter Visit Diagnoses Not on filedocumented in this encounter Care Teams Beamster Relationship Specialty Start Date End Date New Referring, Provider PCP - General UNKNOWN PHYSICIAN SPECIALTY 01/09/21 documented as of this encounter
--- OUTSIDE RECORDS SUMMARY | 2025-02-04 15:32 | XMS_ITS | Clinical Summary ---
Author Organization [facility] [employer] Address [facility] [facility] [place] [address] Care Team Providers Care Fagot Heater Name Role Phone Unavailable Primary Care Provider Unavailabl e Source Comments [facility] [employer],non-owned Affiliates and Associated Physician Practices is amultiple site organization consisting of ambulatory clinics and hospital sitesin [place], [place], [place] and [place]. This disclosure is being madepursuant to the Care Everywhere program and may not contain all information available regarding this patient. Last updated 18.[facility] [employer] Allergies No known active allergies Medications * Be aware that medications may not be up to date on this document. Alwaysverify current medications with the patient. Medication Sig Dispensed Refills Start Date End Date Status naloxone HCl (Narcan) 4 MG/0.1ML nasal spray [place] 1 (one) spray into the nose as [...]
--- OUTSIDE RECORDS SUMMARY | 2025-02-04 15:32 | XMS_ITS | Patient Health Summary ---
Author Organization [facility] [employer] Address [facility] [facility] [address] [place] [address] Care Team Providers Care Maritime Pilot Name Role Phone Unavailable Primary Care Provider Unavailabl e Note from [facility],non-owned Affiliates and Associated Physician Practices is amultiple site organization consisting of ambulatory clinics and hospital sitesin [place], [place], [place] and [place]. This disclosure is being madepursuant to the Care Everywhere program and may not contain all information available regarding this patient. Last updated 18.[facility] [employer] Allergies No known active allergies Medications * Be aware that medications may not be up to date on this document. Alwaysverify current medications with the patient. * naloxone HCl (Narcan) 4 MG/0.1ML nasal spray(Started 09/21/2023) [place] 1 (one) spray into the nose as [...] Quantitative <3 mIU/mL 09/21/2023 7:37 AM CDT [facility] Comment: HCG Numeric Result Interpretation: [...] Self MD LAB - CHEMISTRY DOMINIK LAYNE [address] [address], [facility] [phone] * DERMATOPATHOLOGY (04/23/2022 12:00 AM CDT) Case Report Dermatopathology Report Case: [id number] Authorizing Provider: Dianna Lee, Collected: 04/23/2022 12:00 AM LICENSED PRACTICAL NURSE CLINIC NURSE-HUMAN SERVICES PROFESSIONAL Ordering Location: [facility] DermPath Lab Received: 04/24/2022 11:05 AM Pathologist: Lonny Auguste MD Specimens: A) - Skin, right thigh [...] specimen consists of a shave biopsy measuring [id number]. Jar 0. Specimen B: Received is one formalin filled container labeled with the patient's name and designated mid lower back. The specimen consists of a shave biopsy measuring [id number]. Jar 0. 2 5:30 PM CDT DERMATOPATHOLOGY [...] characteristic determined by the Dermatopathology Laboratory at [facility], directed by Dr. Jay Auguste. These tests need not be, and therefore are not, approved by the [place] Food and Drug Administration. The tests are used for clinical purposes. Billing Codes Specimen Charges Stain Charges 76989 [id number] 1 1 2 5:30 PM CDT DERMATOPATHOLOGY LABORATORY Embedded Images 2 5:30 PM CDT DERMATOPATHOLOGY LABORATORY Pathology/Cytology TISSUE SPECIMEN FROM SKIN / Unknown 04/23/2022 04/24/2022 11:05 AM CDT Miscellaneous samples (specimen) TISSUE SPECIMEN FROM SKIN / Unknown 04/23/2022 04/24/2022 11:05 AM CDT Dianna Lee APRN-HUMAN SERVICES PROFESSIONAL LAB - PATH OLOGY/CYTOLOGY ORDERABLES DERMATOPATHOLOGY LABORATORY [facility] - Department of Dermatology [address] [phone]
--- OUTSIDE RECORDS SUMMARY | 2025-02-04 15:32 | XMS_ITS | Encounter Summary ---
Author Organization [facility] Address [address] [place] [address] Care Team Providers Care Head Char Filter Tank Tender Name Role Phone Rita Sykes Primary Care Provider +1- [phone] Encounter Details Date Type Department Care Team (Late st Contact Info) Description 02/04/[address] [facility] Obstetrical Gynecology [address] [facility] [address] [place] [id number] Zahra Mcdaniel MD [address] [facility] [address] [place] [address] Social History Tobacco Use Types [...] staff should administer the PHQ-9) 0 12/28/2024 [place] Depression Scale Answer Date Recorded [place] Depression Scale Total 10 01/20/2025 The thought [...] as of this encounter Care Teams Head Char Filter Tank Tender Relationship Specialty Start Date End Date Rita Sykes PA [address] [place] [address] PCP - General Internal Medicine 04/05/21 documented as of this encounter
--- OUTSIDE RECORDS SUMMARY | 2025-02-04 15:32 | XMS_ITS | Clinical Summary ---
Author Organization [facility] Address [address] [place] [address] Phone Care Team Providers Care Foot Gatherer Name Role Phone Below, Kiel Reed MD Unavailable [phone] Torey Saleh WATERWORKS PUMP STATION OPERATOR Unavailable Unavailable Kalli Lopez APRN, GLASS EMBOSSER Unavailable [phone] Allergies Active Allergy Reactions Criticality Noted Date [...] on file Legal Sex Female 3:08 AM CONSTRUCTION TECHNOLOGY INSTRUCTOR Gender Identity Not on file Sexual Orientation Not on file Last Filed Vital Signs Vital Sign Reading Time Taken Comments Blood Pressure 120/60 12/08/2022 1:05 PM CONSTRUCTION TECHNOLOGY INSTRUCTOR Pulse 63 12/08/2022 1:05 PM CONSTRUCTION TECHNOLOGY INSTRUCTOR Temperature 36.9 C (98.5 F) 03/28/2019 3:22 PM CDT Respiratory Rate 16 01/30/2020 2:03 PM CDT Oxygen Saturation 100% 11/11/2018 11:24 AM CONSTRUCTION TECHNOLOGY INSTRUCTOR Inhaled Oxygen Concentration - - Weight 74.8 kg (165 lb) 12/08/2022 1:05 PM CONSTRUCTION TECHNOLOGY INSTRUCTOR Height 172.7 cm (5' 8 ) 12/08/2022 1:05 PM CONSTRUCTION TECHNOLOGY INSTRUCTOR Body Mass Index 25.09 12/08/2022 1:05 PM CONSTRUCTION TECHNOLOGY INSTRUCTOR Plan of Treatment Health Maintenance Due Date [...] this topic Medical Devices Implanted Type Area Supervisor Insecticide Device Identifier Shelf Expiration Date Model / Serial / Lot Scrw Intfr Bobby Shth 7x25mm Ti Strl - [id number] Implanted:Qty: 1 on 09/16/2016 by Kiel Zelaya MD at [facility] IMPLANT Right: Knee [employer] AR-1371E / / [id number] Scr Intfr Bobby 8x20 Ti Strl - [id number] Implanted:Qty: 1 on 09/16/2016 by Kiel Zelaya MD at [facility] IMPLANT Right: Knee [employer] AR-1380T / / [id number] Bi-Cortical Post Ti 4.5mmx37.5mm - [id number] Implanted:Qty: 1 on 09/16/2016 by Kiel Zelaya MD at [facility] IMPLANT Right: Knee [employer] AR-1365-37 5 / / [id number] Procedures Procedure Name Priority Date/Time Associated Diagnosis Comments PATHOLOGY CYTOLOGY SKIP LOCATOR Routine 05/18/2019 11:27 AM CDT Vaginal discharge HUMAN PAPILLOMA VIRUS (HPV) Routine 05/22/2017 11:00 AM CDT Encounter for screening for human papillomavirus (HPV) from Last 3 Months or Most Recently Relevant to Health Maintenance Results * PATHOLOGY CYTOLOGY SKIP LOCATOR (05/18/2019 11:27 AM CDT) SPECIMEN ADEQUACY Satisfactory for evaluation. Endocervical/transf ormation zone component is present. 05/24/2019 10:[address] [facility] GENERAL CATEGORY NEGATIVE FOR INTRAEPITHELIAL LESIONS OR MALIGNANCY. 05/24/2019 10:[address] [facility] DESCRIPTIVE DIAGNOSIS Reactive cellular changes associated with inflammation and repair. 05/24/2019 10:[address] [facility] MATED EXAMINATION Analysis of this sample has been assisted by an automated imaging and review system ([employer] System, [employer], [place], [place]). This case is further evaluated and finalized by a accountant certified public and/or pathologist. 05/24/2019 10:[address] [facility] DISCLAIMER The PAP smear is a screening [...] unless clinically indicated. 05/24/2019 10:[address] [facility] Case Report Gynecologic Cytology Report Case: [id number] Authorizing Provider: Elba Velazquez MD Collected: 05/18/2019 11:27 AM Ordering Location: [facility] Received: 05/18/2019 11:27 AM INT MED First Screen: Reginaldo Oliva Pathologist: Vishnu Montoya MD Specimen: TP Screen, CERVIX/ENDOCERVIX/V AGINAL 05/24/2019 10:[address] [facility] HPV Reflex if ASCUS? Yes 05/24/2019 10:[address] [facility] Specimen of unknown material (specimen) (Cervix/Endocerv ix/Vaginal) Non-Phlebotomy Collection / Unknown 05/18/2019 11:27 AM CDT 05/18/2019 11:27 AM CDT Elba Velazquez MD PATHOLOGY/CYTOLOGY ORDERABLE S Final Result [facility] [address] [place] [address], * HUMAN PAPILLOMA VIRUS (HPV) (05/22/2017 11:00 AM CDT) HPV OTHER HIGH RISK TYPES, PCR NEGATIVE NEGATIVE 05/27/2017 2:[address] [facility] Comment: The following Other High Risk types [...] 16 NEGATIVE NEGATIVE 05/27/2017 2:[address] [facility] Comment: A negative high-risk HPV result does [...] 18 NEGATIVE NEGATIVE 05/27/2017 2:[address] [facility] Comment: A negative high-risk HPV result does [...] AM CDT 05/22/2017 11:[address] [facility] - 05/27/2017 2:20 PM CDT Performed by Real-Time Polymerase Chain Reaction (PCR) on the [address]. [place] [facility] SEND OUTS Final Result [facility] [address] [place] [address], [place] from Last 3 Months or Most Recently Relevant to Health Maintenance Insurance MEDICAID [place] [facility] Advance Directives * Full Code [...] AM 08/26/2011 1:56 PM none Care Teams Foot Gatherer Relationship Specialty Start Date End Date Below, Kiel Reed MD [address] [place] [address] Consulting Physician Orthopaedic Sports Medicine 09/08/16 Torey Saleh [facility] [address] [place] [address] Behavioral Therapist Licensed Clinical Professional Counselor 03/25/18 Kalli Lopez APRN, GLASS EMBOSSER [address] [place] [address] Nurse Practitioner Advanced Practice Nurse 04/17/22
--- OUTSIDE RECORDS SUMMARY | 2025-02-04 15:32 | XMS_ITS | Clinical Summary ---
Author Organization [facility] Address formerly [facility] [place] [address] Care Team Providers Care Call Center Professional Name Role Phone New Referring, Provider Primary [...] supervision of other normal in third trimester ([facility]) 01/12/2021 0 01/13/2021 Immunizations Name Administration [...] declined 01/12/2021 How often do you attend restorationist or jainism serv ices? Patient declined 01/12/2021 Do you belong to any clubs o r organizations such as restorationist groups, unions, fraternal or athletic groups, or [...] and heating? Not hard at all 01/12/2021 [facility] - Occup[facility] Stress [...] on file Legal Sex Female 12:55 PM APPRENTICE PAINTER HAND Gender Identity Not on file Sexual Orientation Not on file Last Filed Vital Signs Vital Sign Reading Time Taken Comments Blood Pressure 111/46 01/14/2021 7:30 AM APPRENTICE PAINTER HAND Pulse 61 01/14/2021 7:30 AM APPRENTICE PAINTER HAND Temperature 36.3 C (97.3 F) 01/14/2021 7:30 AM APPRENTICE PAINTER HAND Respiratory Rate 16 01/13/2021 8:00 PM APPRENTICE PAINTER HAND Oxygen Saturation 99% 01/14/2021 7:30 AM APPRENTICE PAINTER HAND Inhaled Oxygen Concentration - - Weight 97.1 kg (214 lb) 01/12/2021 7:51 PM APPRENTICE PAINTER HAND Height 172.7 cm (5' 8 ) 01/12/2021 7:51 PM APPRENTICE PAINTER HAND Body Mass Index 32.54 01/12/2021 7:51 PM APPRENTICE PAINTER HAND Plan of Treatment Health Maintenance Due Date [...] 8:05 PM 01/14/2021 10:05 PM Care Teams Call Center Professional Relationship Specialty Start Date End Date New Referring, Provider PCP - General UNKNOWN PHYSICIAN SPECIALTY 01/09/21
--- OUTSIDE RECORDS SUMMARY | 2025-02-04 15:32 | XMS_ITS | Encounter Summary ---
Author Organization [facility] Address [address] [place] [address] Care Team Providers Care Executive Talent Acquisition Consultant Name Role Phone Rita Sykes Primary Care Provider [phone] Encounter Details Date Type Department Care Team (Late st Contact Info) Description 01/23/2025 Results Follow-Up [facility] Center [address] [address] Shiv Gamez MD [address] [place] [address] Social History Tobacco Use Types Packs/Day Years [...] staff should administer the PHQ-9) 0 12/28/2024 [place] Depression Scale Answer Date Recorded [place] Depression Scale Total 10 01/20/2025 The thought [...] on filedocumented in this encounter Care Teams Executive Talent Acquisition Consultant Relationship Specialty Start Date End Date Rita Sykes PA [facility] [address] PCP - General Internal Medicine 04/05/21 documented as of this encounter
--- OUTSIDE RECORDS SUMMARY | 2025-02-04 15:32 | XMS_ITS | Referral Summary ---
Author Organization [facility] [address] Address [address] [place] [address] Care Team Providers Care Boat Ride Operator Name Role Phone Rita Sykes Primary Care Provider [phone]- [phone] Encounters Date Type Department Care Team Description 02/04/2025 Orders Only [facility] Medical [facility] Obstetrical Gynecology [address] [place] [phone] Zahra Mcdaniel MD 01/23/2025 Results Follow-Up [facility] [address] [place] [address] Shiv Gamez MD 01/20/2025 1:30 PM FUR BUYER Lab [facility] Building [address] [address] Encounter for supervision of other normal in first trimester 01/20/2025 1:14 PM FUR BUYER - 01/20/2025 11:59 PM FUR BUYER Hospital Encounter [facility] Building [address] [address] Encounter for supervision of other normal in first trimester Discharge Disposition: Discharge to home or self care 01/20/2025 11:30 AM FUR BUYER Office Visit [facility] Medical [facility] Obstetrical Gynecology [address] [place] [phone] Shiv Gamez MD Encounter for supervision of other normal in first trimester (Primary Dx); Bipolar disorder in remission 01/20/2025 11:00 AM FUR BUYER Clinical Support [facility] Obstetrical Gynecology [address] [place] [address] [place] [phone] 01/20/2025 10:15 AM FUR BUYER Clinical Support [facility] Obstetrical Gynecology [address] [place] [address] [place] [phone] Encounter to establish gestational age using ultrasound (Primary Dx) 01/02/[address] [place] [phone] Rita Sykes PA Forms Request 12/28/2024 11:00 AM FUR BUYER Office Visit [address] [place] [phone] Rita Sykes PA Right wrist pain; BMI 26.0-26.9,adult 12/27/2024 Nurse Triage [address] [place] [phone] Rita Sykes PA 12/21/2024 Orders Only [facility] at [address] [phone] Berna Lewis, MAXINE Strep throat (Primary Dx) 12/19/2024 9:17 AM FUR BUYER - 12/19/2024 11:59 PM FUR BUYER Hospital Encounter [address] [address] Sore throat; Rectal bleeding; Altered bowel habits Discharge Disposition: Discharge to home or self care 12/19/2024 9:00 AM FUR BUYER Lab [facility] at [address] [phone] Acute cough (Primary Dx) 12/19/2024 8:15 AM FUR BUYER Office Visit [facility] at [address] [phone] Beba Joseph, MAXINE Sore throat (Primary Dx); Acute cough 11/21/2024 Nurse Triage [address] [place] [address] Rita Sykes PA 11/18/2024 3:30 PM FUR BUYER Office Visit [facility] Medical [facility] Internal Medicine at [address] [place] [phone] Genie De Anda, MAXINE Fever blister (Primary Dx); BMI 25.0-25.9,adult 11/15/2024 Telephone [facility] Family Medicine [address] [facility] [address] [place] [address] Rita Sykes PA 11/13/2024 Orders Only [facility] Health Information Management [address] [place], [place] [id number] Scanning, Provider from Last 3 Months Allergies [...] 30 tablet 2 01/12/20 25 Active vit [id number] 27mg iron- 800 mcg-250 mg capsule Take [...] 01/08/2025 Assessment & Plan (01/08/2025 3:37 PM FUR BUYER): Patient has noticed right wrist pain. 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 And encouraged symptomatic treatment available [id number]. Symptoms worsen or do not resolve or [...] 024 Assessment & Plan (01/08/2024 9:13 AM FUR BUYER): 2010 -- Dr Dale in [place] Right dismembered pyleoplasty Flank pain 01/08/2024 Assessment & Plan (01/10/2024 11:14 PM FUR BUYER): Patient was treated for UTI last week. [...] 11/30/2023 Assessment & Plan (12/06/2023 2:23 PM FUR BUYER): Check labs Diabetes mellitus screening 11/30/2023 Assessment & Plan (01/10/2024 11:12 PM FUR BUYER): Check labs Assessment & Plan (12/06/2023 2:23 PM FUR BUYER): Check labs Fatigue 11/30/2023 Assessment & Plan (01/10/2024 11:12 PM FUR BUYER): Probably multifactorial. Check labs and followup to re-evaluate Assessment & Plan (12/06/2023 2:24 PM FUR BUYER): Probably multifactorial. Check labs and followup to [...] 11/30/2023 Assessment & Plan (12/06/2023 2:24 PM FUR BUYER): Continue per Psychiatry History of COVID-19 11/30/2023 Assessment & Plan (12/06/2023 2:24 PM FUR BUYER): Recent history of COVID. She is feeling much better. Insomnia 06/12/2023 Assessment & Plan (06/12/2023 4:08 PM CDT): Patient has been following with psychiatrist up near [place]. She is no longer able to see her. Trying to establish with a local psychiatrist but needs assistance with medications as she has been off her medications for a couple of days now. Tried sending the Klonopin to [facility] but this is not preferred by her [...] Overview (12/06/2023): Managed by MAXINE Lopez in [place], [place] via telemedicine 2022-- transferred to Dr. Marielle Pickett Assessment & Plan (12/06/2023 2:23 PM FUR BUYER): Managed by Dr. Pickett - Psychiatry Continue Adderall and Klonopin. She feels like her anxiety is really out of control and is going to work with Dr. Pickett to adjust medications. Assessment & Plan (06/12/2023 4:06 PM CDT): Patient has been following with psychiatrist up near [place]. She is no longer able to see her. Trying to establish with a local psychiatrist but needs assistance with medications as she has been off her medications for a couple of days now. Tried sending the Klonopin to [facility] but this is not preferred by her insurance so need to have medicines sent to the local [facility]. Will send Klonopin trazodone in the Adderall. Reminded patient that I do not usually refill these so I do want her to get in with a psychiatrist to manage her psychiatric concerns. She is in agreement with the plan Anxiety 05/17/2022 Assessment & Plan (12/06/2023 2:23 PM FUR BUYER): Managed by Dr. Pickett - Psychiatry Continue Adderall and Klonopin. She feels like her anxiety is really out of control and is going to work with Dr. Pickett to adjust medications. Assessment & Plan (06/12/2023 4:08 PM CDT): Patient has been following with psychiatrist up near [place]. She is no longer able to see her. Trying to establish with a local psychiatrist but needs assistance with medications as she has been off her medications for a couple of days now. Tried sending the Klonopin to [facility] but this is not preferred by her [...] 01/02/2022 Assessment & Plan (01/08/2025 3:35 PM FUR BUYER): Weight/BMI is in healthy range. Continue healthy lifestyle to maintain. Assessment & Plan (07/23/2024 9:48 PM CDT): Weight/BMI is in healthy range. Continue healthy lifestyle to maintain. Assessment & Plan (05/16/2024 11:30 PM CDT): Weight/BMI is in healthy range. Continue healthy lifestyle to maintain. Assessment & Plan (01/02/2022 1:47 PM FUR BUYER): Weight/BMI is in healthy range. Continue healthy lifestyle to maintain. Skin lesion 05/18/2021 Assessment & Plan (01/04/2022 2:24 PM FUR BUYER): [facility]erral [facility]. She will [...] 024 Assessment & Plan (01/10/2024 11:12 PM FUR BUYER): Weight/BMI is in healthy range. Continue healthy lifestyle to maintain. Assessment & Plan (12/06/2023 2:23 PM FUR BUYER): Weight/BMI is in healthy range. Continue healthy [...] 05/17/2022 Assessment & Plan (01/04/2022 2:24 PM FUR BUYER): Check labs Lipid screening 01/04/2022 05/17/2022 Assessment & Plan (01/04/2022 2:24 PM FUR BUYER): Check labs Fatigue 01/04/2022 05/17/2022 Assessment & Plan (01/04/2022 2:24 PM FUR BUYER): Probably multifactorial. Check labs and followup to re-evaluate Bacterial conjunctivitis of left eye 05/22/2021 05/17/2022 Assessment & Plan (01/04/2022 2:24 PM FUR BUYER): Her symptoms seem most consistent with a [...] staff should administer the PHQ-9) 0 12/28/2024 Def[place] Depression Scale Answer Date Recorded [place] Depression Scale Total 10 01/20/2025 The thought [...] Comments Blood Pressure 100/58 01/20/2025 11:18 AM FUR BUYER Pulse 60 12/28/2024 11:15 AM FUR BUYER Temperature 37 C (98.6 F) 12/28/2024 11:15 AM FUR BUYER Respiratory Rate 20 12/19/2024 8:15 AM FUR BUYER Oxygen Saturation 99% 12/28/2024 11:15 AM FUR BUYER Inhaled Oxygen Concentration - - Weight 78 kg (172 lb) 01/20/2025 11:18 AM FUR BUYER Height 172.7 cm (5' 8 ) 01/20/2025 11:01 AM FUR BUYER Body Mass Index 26.15 01/20/2025 11:01 AM FUR BUYER Plan of Treatment Not on file Procedures Procedure Name Priority Date/Time Associated Diagnosis Comments DRUGS OF ABUSE SCREEN, URINE WITH REFLEX CONFIRMATION Routine 01/20/2025 1:40 PM FUR BUYER Encounter for supervision of other normal in first trimester ANTIBODY SCREEN Routine 01/20/2025 1:39 PM FUR BUYER Encounter for supervision of other normal in first trimester ABO/RH Routine 01/20/2025 1:39 PM FUR BUYER Encounter for supervision of other normal in first trimester CBC WITHOUT DIFFERENTIAL Routine 01/20/2025 1:39 PM FUR BUYER Encounter for supervision of other normal in first trimester HEMOGLOBIN A1C Routine 01/20/2025 1:39 PM FUR BUYER Encounter for supervision of other normal in first trimester HEMOGLOBIN ANALYSIS BY ELECTROPHORESIS Routine 01/20/2025 1:39 PM FUR BUYER Encounter for supervision of other normal in first trimester TYPE AND SCREEN Routine 01/20/2025 1:39 PM FUR BUYER Encounter for supervision of other normal in first trimester HEPATITIS B SURFACE ANTIGEN Routine 01/20/2025 1:39 PM FUR BUYER Encounter for supervision of other normal in first trimester HEPATITIS C ANTIBODY Routine 01/20/2025 1:39 PM FUR BUYER Encounter for supervision of other normal in first trimester HIV 1/2 ANTIBODY PLUS P24 ANTIGEN Routine 01/20/2025 1:39 PM FUR BUYER Encounter for supervision of other normal in first trimester RPR Routine 01/20/2025 1:39 PM FUR BUYER Encounter for supervision of other normal in first trimester RUBELLA IGG Routine 01/20/2025 1:39 PM FUR BUYER Encounter for supervision of other normal in first trimester TRICHOMONAS VAGINALIS PCR Routine 01/20/2025 11:39 AM FUR BUYER Encounter for supervision of other normal in first trimester N. GONORRHOEAE/C. TRACHOMATIS AMPLIFICATION Routine 01/20/2025 11:39 AM FUR BUYER Encounter for supervision of other normal in first trimester URINE CULTURE Routine 01/20/2025 11:39 AM FUR BUYER Encounter for supervision of other normal in first trimester US OB UNDER 14 WEEKS Schedule Routine, Read Routine (OP Routine) 01/20/2025 10:42 AM FUR BUYER Encounter to establish gestational age using ultrasound DIFFERENTIAL AUTO Routine 12/19/2024 9:1 7 AM FUR BUYER Rectal bleeding Altered bowel habits TISSUE TRANSGLUTAMINASE, IGA Routine 12/19/2024 9:17 AM FUR BUYER Rectal bleeding Altered bowel habits ERYTHROCYTE SEDIMENTATION RATE Routine 12/19/2024 9:17 AM FUR BUYER Rectal bleeding Altered bowel habits CBC WITH AUTO DIFFERENTIAL Routine 12/19/2024 9:17 AM FUR BUYER Rectal bleeding Altered bowel habits CRP (ACUTE PHASE) Routine 12/19/2024 9:1 7 AM FUR BUYER Rectal bleeding Altered bowel habits THROAT CULTURE Routine 12/19/2024 9:17 AM FUR BUYER Sore throat POC INFLUENZA A/B, COVID-19 ANTIGEN Routine 12/19/2024 8:37 AM FUR BUYER Sore throat POCT RAPID STREP Routine 12/19/2024 8:32 AM FUR BUYER Sore throat SCAN - LABS 11/13/2024 HIGH RISK HPV DNA DETECTION WITH GENOTYPING Routine 01/29/2024 3:14 PM FUR BUYER Well woman exam from Last 3 Months or Most Recently Relevant to Health Maintenance Results * (ABNORMAL) Drugs of Abuse Screen, Urine with Reflex Confirmation (01/20/2025 1:40 PM FUR BUYER) [facility] Amphetamine, ur Not Detected CutOff 500ng/mL Comment: Interpretive Data - Amphetamines: Samples containing greater than 500 ng/mL d-methamphetamine or other cross-reacting amphetamine compounds are reported as positive. Amphetamine immunoassays are subject to significant false positive rates due to cross-reactivity of non-amphetamine drugs. Confirmatory testing required for definitive results. Current Interpretive Data was last reviewed 2023. Testing performed by: [facility], [address] [place] [address], [place]., [address] Barbiturates, ur Not Detected CutOff 200ng/mL SHERLY LEE Comment: Interpretive Data - Barbiturates: Samples containing greater than 200 ng/mL secobarbital or other cross-reacting barbiturate compounds are reported as positive. False positive and false negative results are possible. Confirmatory testing required for definitive results. Current Interpretive Data was last reviewed 2023. Testing performed by: [facility], [address] [place] [address]., [address] Benzodiazepines, ur Not Detected CutOff 100ng/mL [facility] Comment: Interpretive Data - Benzodiazepines: Samples containing greater than 100 ng/mL nordiazepam or other cross-reacting compounds are reported as positive. False positive and false negative results are possible. Confirmatory testing required for definitive results. Current Interpretive Data was last reviewed 2023. Testing performed by: [address] [address] Cannabinoids, ur Screen Positive, presumptive (A) CutOff 50 ng/mL [facility] Comment: Interpretive Data - Cannabinoids: Samples containing greater than 50 ng/mL delta-9 THC -COOH or other cross- reacting compounds are reported as positive. False positive and false negative results are possible. Confirmatory testing required for definitive results. Current Interpretive Data was last reviewed 2023. Testing performed by: [address] [address] Cocaine, ur Not Detected CutOff 150ng/mL [facility] Comment: Interpretive Data - Cocaine: Samples containing greater than 150 ng/mL benzoylecgonine or other cross- reacting compounds are reported as positive. False positive and false negative results are possible. Confirmatory testing required for definitive results. Current Interpretive Data was last reviewed 2023. Testing performed by: [address] [address] Fentanyl, Ur Not Detected CutOff 5 ng/mL [facility] Comment: Interpretive Data - Fentanyl: Samples containing greater than 1 ng/mL fentanyl or other cross-reacting fentanyl compounds are reported as positive. False positive and false negative results are possible. Confirmatory testing required for definitive results. Current Interpretive Data was last reviewed 2023. Testing performed by: [address] [address] Methadone, ur Not Detected CutOff 300ng/mL [facility] Comment: Interpretive Data - Methadone: Samples containing greater than 300 ng/mL d,l-methadone or other cross-reacting compounds are reported as positive. False positive and false negative results are possible. Confirmatory testing required for definitive results. Current Interpretive Data was last reviewed 2023. Testing performed by: [address] [address] Opiates, ur Not Detected CutOff 300ng/mL [facility]ERLY Comment: Interpretive Data - Opiates: Samples containing greater than 300 ng/mL morphine or other cross-reacting compounds are reported as positive. False positive and false negative results are possible. Confirmatory testing required for definitive results. Current Interpretive Data was last reviewed 2023. Testing performed by: [address] [address] Oxycodone, ur Not Detected CutOff 100ng/mL [facility] Comment: Interpretive Data - Oxycodone: Samples containing greater than 100 ng/mL oxycodone or other cross-reacting compounds are reported as positive. False positive and false negative results are possible. Confirmatory testing required for definitive results. Current Interpretive Data was last reviewed 2023. Testing performed by: [address] [address] Phencyclidine, ur Not Detected CutOff 25 ng/mL [facility] Comment: Interpretive Data - Phencyclidine: Samples containing greater than 25 ng/mL phencyclidine or other cross-reacting compounds are reported as positive. False positive and false negative results are possible. Confirmatory testing required for definitive results. Current Interpretive Data was last reviewed 2023. Testing performed by: [address] [address] Urine Creatinine 224 mg/dL [facility]ERLY Comment: Interpretive Data Urine Creatinine: < 10 mg/dL is extremely dilute = or > 10 but < 20 mg/dL is dilute = or > 20 mg/dL is normal Current Interpretive Data was last revised on 2018. Testing performed by: [address] [address] Urine 01/20/2025 1:40 PM FUR BUYER 01/20/2025 3:54 PM FUR BUYER Narrative SHERLY - 01/20/2025 4:42 PM FUR BUYER Drug of Abuse screening is performed by immunoassay for medical purposes only. This is not to be used for Pain Management purposes. If Detected, confirmation testing will be performed for Amphetamines, Cocaine, Fentanyl, Methadone, Opiates, Oxycodone or Phencyclidine. Shiv Gamez MD LAB URINE ORDERABLES Fin al Result Performing Organization Address [facility] Co de Phone Number SHERLY [address] [address] * HIV 1/2 Antibody plus p24 Antigen Blood (01/20/2025 1:39 PM FUR BUYER) Pathologist [facility] HIV 1/2 ab + p24 ag Nonreactive Nonreactive Comment:Nonreactive for HIV- 1 antigen and HIV-1/HIV-2 antibodies. No laboratory evidence of HIV infection. If acute HIV infection is suspected, consider testing for HIV-1 RNA. Current interpretive data was last revised on 22. Blood 01/20/2025 1:39 PM FUR BUYER 01/20/2025 6:58 PM FUR BUYER Shiv Gamez MD LAB MICROBIOLOGY - GENER AL ORDERABLES Final Result Performing Organization Address [facility] de Phone Number SHERLY [address] [address] * (ABNORMAL) Hemoglobin analysis by electrophoresis (01/20/2025 1:39 PM FUR BUYER) [facility] RBC 3.82(L) 3.90 - 5.20 M/cumm Comment:Testing performed by : [facility], [address] [place]., [address] Hgb 11.9 11.9 - 15.5 g/dL SHERLY LEE Comment:Testing performed by : [facility], [address] [place]., [address] MCV 91.4 81.3 - 96.4 fL SHERLY LEE Comment:Testing performed by : [facility], [address] [place]., [address] Rdw 12.7 11.1 - 14.9 % SHERLY LEE Comment:Testing performed by : [facility], [address] [facility], [place]., [address] Hgb electrophores is, interp Normal Hemoglobin Pattern - For Age SHERLY LEE Comment:Testing performed by : [facility], [address] [place]., [address] Hgb A 97.5 96.0 - 98.5 % SHERLY LEE Comment:Testing performed by : [facility], [address] [place]., [address] Hgb A2 2.5 1.5 - 3.2 % SHERLY LEE Comment:Testing performed by : [facility], [address] [facility], [address] Hgb F <0.4 0.0 - 0.9 % SHERLY LEE Comment:Testing performed by : [facility], [address] [place]., [address] Blood 01/20/2025 1:39 PM FUR BUYER 01/20/2025 8:21 PM FUR BUYER us Shiv Gamez MD LAB BLOOD ORDERABLES Fin al Result SHERLY [address] [facility] Department [place] [address] * Hepatitis C antibody Blood (01/20/2025 1:39 PM FUR BUYER) Hep C Ab Nonreactive Nonreactive Comment: Antibodies [...] revised on 2020. Blood 01/20/2025 1:39 PM FUR BUYER 01/20/2025 6:58 PM FUR BUYER Shiv Gamez MD LAB MICROBIOLOGY - GENER AL ORDERABLES Final Result Performing Organization Address [facility] de Phone Number [address] [place] [address] * ABO/Rh (01/20/2025 1:39 PM FUR BUYER) ABO/Rh A Positive Comment:Testing performed by : [facility], [address] [place] [address]., [address] Blood 01/20/2025 1:39 PM FUR BUYER 01/20/2025 4:00 PM FUR BUYER Narrative [facility] - 01/20/2025 4:37 PM FUR BUYER Has the patient had Daratumumab or Isatuximab in the past 6 months?->Unknown Hx of or candidate for Bone Marrow/Stem Cell transplant?->No Shiv Gamez MD LAB BLOOD BANK TEST ORDE RABLES Final Result Performing Organization Address [facility] Co de Phone Number [address] [place] [address] * Rubella IgG antibody Blood (01/20/2025 1:39 PM FUR BUYER) [facility] Rubella IgG Reactive Reactive Blood 01/20/2025 1:39 PM FUR BUYER 01/20/2025 6:58 PM FUR BUYER Shiv Gamez MD LAB MICROBIOLOGY - GENER AL ORDERABLES Final Result Performing Organization Address [facility] Co de Phone Number [address] [place] [address] * RPR Blood (01/20/2025 1:39 PM FUR BUYER) Pathologist [facility] RPR Nonreactive Nonreactive Comment:Testing performed by : [facility], [address] [facility], [place]., [address] Blood 01/20/2025 1:39 PM FUR BUYER 01/20/2025 8:21 PM FUR BUYER Shiv Gamez MD LAB MICROBIOLOGY - GENER AL ORDERABLES Final Result Performing Organization Address [facility] Co de Phone Number [address] [place] [address] * Hepatitis B Surface Antigen Blood (01/20/2025 1:39 PM FUR BUYER) Pathologist [facility] HepBsAg Nonreactive Nonreactive Blood 01/20/2025 1:39 PM FUR BUYER 01/20/2025 6:58 PM FUR BUYER Shiv Gamez MD LAB MICROBIOLOGY - GENER AL ORDERABLES Final Result Performing Organization Address [facility] de Phone Number [address] [address] * (ABNORMAL) CBC without differential (01/20/2025 1:39 PM FUR BUYER) [facility] WBC 10.7(H) 3.8 - 9.9 K/cumm Comment:Testing performed by : [address] [address] Hgb 12.1 11.9 - 15.5 g/dL SHERLY Comment:Testing performed by : [address] [address] Hct 36.1 35.6 - 45.5 % SHERLY Comment:Testing performed by : [address] [address] Plt 180 150 - 400 K/cumm SHERLY Comment:Testing performed by : [address] [address] MPV 12.1 9.1 - 12.3 fL SHERLY LEE Comment:Testing performed by : [address] [address] RBC 3.96 3.90 - 5.20 M/cumm SHERLY LEE Comment:Testing performed by : [address] [address] MCV 91.2 81.3 - 96.4 fL SHERLY LEE Comment:Testing performed by : [address] [address] MCH 30.6 27.1 - 33.3 pg SHERLY LEE Comment:Testing performed by : [address] [address] MCHC 33.5 32.3 - 35.7 g/dL SHERLY LEE Comment:Testing performed by : [address] [address] RDW CV 12.5 11.1 - 14.9 % SHERLY LEE Comment:Testing performed by : [address] [address] RDW SD 41.3 35.7 - 48.1 fL SHERLY Comment:Testing performed by : [address] [address] NRBC abs 0.00 0.00 - 0.01 K/cumm SHERLY Comment:Testing performed by : [address] [address] Blood 01/20/2025 1:39 PM FUR BUYER 01/20/2025 3:58 PM FUR BUYER Shiv Gamez MD LAB BLOOD ORDERABLES Fin al Result [place] [address] [facility] Department [place] [address] * Antibody screen (01/20/2025 1:39 PM FUR BUYER) Darlyn, indirect, Gel Interpretation Negative ABSC Comment:Testing performed by : [address] [address] Blood 01/20/2025 1:39 PM FUR BUYER 01/20/2025 4:00 PM FUR BUYER Narrative SHERLY - 01/20/2025 4:37 PM FUR BUYER Has the patient had Daratumumab or Isatuximab in the past 6 months?->Unknown Hx of or candidate for Bone Marrow/Stem Cell transplant?->No Shiv Gamez MD LAB BLOOD BANK TEST DOMINIK LAYNE Final Result SHERLY [address] [address] * Hemoglobin A1c (01/20/2025 1:39 PM FUR BUYER) Pathologist [facility] Hgb A1C 5.4 4.0 - 5.6 % Comment:Testing performed by : [address] [address] Estimated Average Glucose 108 mg/dL SHERLY Comment: The ADA recommends reporting an estimated Average Glucose (eAG) with all Hemoglobin A1c results using the equation derived from a study of 507 normal and diabetic adults. Minority populations were underrepresented and children were not included. (Diabetes Care 31:5777-6715, 2008). The eAG is not equivalent to a fasting glucose. Testing performed by: [address] [address] Blood 01/20/2025 1:3 9 PM FUR BUYER 01/20/2025 3:58 PM FUR BUYER Shiv Gamez MD LAB BLOOD ORDERABLES Fin al Result Performing Organization Address City/[facility] Co de Phone Number SHERLY [address] [place] [address] * N. gonorrhoeae/C. trachomatis Amplification Urine (01/20/2025 11:39 AM FUR BUYER) [facility] C. trachomatis Not Detected [facility] Comment:Testing performed by : [facility], [address] [facility] [place]., [address] N. gonorrhoeae Not Detected SHERLY Comment: Interpretive Data This assay detects Chlamydia trachomatis and Neisseria gonorrhoeae by nucleic acid amplification testing (NAAT). This assay has been cleared by the [place] Food and Drug administration. The performance characteristics of this test have been verified by the [facility] Molecular Infectious Disease laboratory. The performance characteristics of this test have not been evaluated in individuals less than 14 years of age. Current Interpretive Data was last revised on 2023. Testing performed by: [facility], [address] [place] [address]., [id number] Urine (None) 01/20/2025 11:3 9 AM FUR BUYER 01/20/2025 10:27 PM FUR BUYER Shiv Gamez MD LAB MICROBIOLOGY - GENER AL ORDERABLES Final Result Performing Organization Address [facility] de Phone Number [address] [place] [address] BJ * Trichomonas vaginalis PCR Urine (01/20/2025 11:39 AM FUR BUYER) Trichomonas DNA Not Detected [facility] Comment: Interpretive Data This assay detects Trichomonas vaginalis by nucleic acid amplification testing (NAAT). This assay has been cleared by the [place] Food and Drug administration. The performance characteristics of this test have been verified by the [facility] Molecular Infectious Disease laboratory. The performance of this test has not been evaluated in individuals less than 18 years of age. Current Interpretive Data was last revised on 2023. Testing performed by: [facility], [address] [place] [address]., [address] Urine 01/20/2025 11:3 9 AM FUR BUYER 01/20/2025 10:27 PM FUR BUYER Shiv Gamez MD LAB MICROBIOLOGY - GENER AL ORDERABLES Final Result Performing Organization Address [facility] de Phone Number [address] [address] BJ * Urine culture Urine, clean voided (01/20/2025 11:39 AM FUR BUYER) Report Final Report: No growth Comment:Testing performed by : [facility], [address] [place] [address]., [id number] Urine, clean voided 01/20/2025 11:39 AM FUR BUYER 01/20/2025 10:11 PM FUR BUYER Narrative SHERLY - 01/22/2025 7:24 AM FUR BUYER Testing performed by [facility] Microbiology Laboratory ([phone]) Shiv Gamez MD LAB MICROBIOLOGY - GENER AL ORDERABLES Final Result SHERLY [address] [facility] Department [place] [address] * US Ob Under 14 Weeks (01/20/2025 10:42 AM FUR BUYER) Heart Rate 173 bpm CRL 1.8 cm Anatomical Region Laterality Modality Abdomen N/A Ultrasound Narrative 01/20/2025 1:12 PM FUR BUYER Indication: new ob, dating number: 1 GA by LMP 11/24/24 8w1d OMID 08/31/25 GA by today's exam 8w2d OMID 08/30/25 CRL 1.8 cm FHR 173 bpm Flavoring Maker comments: Retroflexed uterus. Single IUP with positive [...] 18-22wga for anatomic survey. Shiv Gamez MD Shiv Gamez MD IMG OB US PROCEDURES Donte gray Result - Final * Differential, auto (12/19/2024 9:17 AM FUR BUYER) Neutrophil abs 4.7 1.5 - 6.5 K/cumm Imm gran abs 0.0 0.0 - 0.1 K/cumm [facility] Lymphocyte abs 2.6 0.8 - 3.3 K/cumm [facility] Monocyte abs 0.6 0.2 - 0.8 K/cumm [facility] Eosinophil abs 0.1 0.0 - 0.5 K/cumm [facility] Basophil abs 0.0 0.0 - 0.1 K/cumm [facility] Neutrophil pct 58.2 % [facility] Comment: Interpretive Data Percent cell count reference ranges are not reported, since discordance with absolute values may lead to misinterpretation of CBC data. Current Interpretive Data was last revised on 2018. Imm gran pct 0.4 % [facility] Comment: Interpretive Data Percent cell count reference ranges are not reported, since discordance with absolute values may lead to misinterpretation of CBC data. Current Interpretive Data was last revised on 2018. Lymphocyte pct 32.9 % [facility] Comment: Interpretive Data Percent cell count reference ranges are not reported, since discordance with absolute values may lead to misinterpretation of CBC data. Current Interpretive Data was last revised on 2018. Monocyte pct 7.1 % [facility] Comment: Interpretive Data Percent cell count reference ranges are not reported, since discordance with absolute values may lead to misinterpretation of CBC data. Current Interpretive Data was last revised on 2018. Eosinophil pct 0.9 % [facility] Comment: Interpretive Data Percent cell count reference ranges are not reported, since discordance with absolute values may lead to misinterpretation of CBC data. Current Interpretive Data was last revised on 2018. Basophil pct 0.5 % [facility] Comment: Interpretive Data Percent cell count reference ranges are not reported, since discordance with absolute values may lead to misinterpretation of CBC data. Current Interpretive Data was last revised on 2018. Blood 12/19/2024 9:17 AM FUR BUYER 12/19/2024 4:16 PM FUR BUYER Nathaly GONZÁLES LAB BLOOD ORDERABLES Fi nal Result SHERLY [address] [id number] Department [place] [address] * (ABNORMAL) CBC with auto differential (12/19/2024 9:17 AM FUR BUYER) WBC 8.0 3.8 - 9.9 K/cumm Hgb 13.2 11.9 - 15.5 g/dL [facility] Hct 41.6 35.6 - 45.5 % [facility] Plt 199 150 - 400 K/cumm [facility] MPV 11.8 9.1 - 12.3 fL [facility] RBC 4.36 3.90 - 5.20 M/cumm [facility] MCV 95.4 81.3 - 96.4 fL [facility] MCH 30.3 27.1 - 33.3 pg [facility] MCHC 31.7(L) 32.3 - 35.7 g/dL [facility] RDW CV 12.6 11.1 - 14.9 % [facility] RDW SD 44.2 35.7 - 48.1 fL [facility] NRBC abs 0.00 0.00 - 0.01 K/cumm [facility] Blood 12/19/2024 9:17 AM FUR BUYER 12/19/2024 4:16 PM FUR BUYER Nathaly GONZÁLES LAB BLOOD ORDERABLES Fi nal Result SHERLY [address] Department [place] [address] * Tissue transglutaminase IgA (TGG-IgA Ab) (12/19/2024 9:17 AM FUR BUYER) Pathologist [facility] TTG ab, IgA <0.5 <=14.9 units/mL Comment: Interpretive data Negative: <15 units/mL Positive: > or equal to 15 units/mL Current interpretive data was last revised on 2017. Testing performed by: [facility], [address] [facility], [place]., [address] Blood 12/19/2024 9:17 AM FUR BUYER 12/20/2024 10:21 AM FUR BUYER Nathaly GONZÁLES LAB BLOOD ORDERABLES Fi nal Result SHERLY [address] [place] [address] * Erythrocyte sedimentation rate (12/19/2024 9:17 AM FUR BUYER) Erythrocyte sedimentation rate 11 1 - 20 mm/hr Blood 12/19/2024 9:17 AM FUR BUYER 12/19/2024 4:16 PM FUR BUYER Nathaly GONZÁLES LAB BLOOD ORDERABLES Fi nal Result Performing Organization Address [facility] Co de Phone Number SHERLY [address] [place] [address] * (ABNORMAL) Throat culture Throat (12/19/2024 9:17 AM FUR BUYER) Report Final Report: Streptococcus pyogenes (Group A Streptococci) Streptococcus pyogenes is uniformly susceptible to beta-lactam antibiotics and vancomycin. Routine susceptibility testing is not performed. (.) Comment:Testing performed by : [facility], [address] [place]., [address] Organism STREPTOCOCCUS PYOGENES (GROUP A STREPTOCOCCI) [facility] Throat 12/19/2024 9:17 AM FUR BUYER 12/19/2024 4:45 PM FUR BUYER Narrative SHERLY - 12/21/2024 8:32 AM FUR BUYER Testing performed by [facility] Microbiology Laboratory ([phone]). Beba Joseph NP LAB MICROBIOLOGY - GENERAL ORDERABLES Final Result Performing Organization Address [facility]/ZIP Co de Phone Number SHERLY [address] [place] [place] [address] * CRP (acute phase) (12/19/2024 9:17 AM FUR BUYER) CRP <3.0 <=10.0 mg/L Blood 12/19/2024 9:17 AM FUR BUYER 12/19/2024 4:16 PM FUR BUYER Nathaly GONZÁLES LAB BLOOD ORDERABLES Fi nal Result SHERLY [address] Department [place] [address] * POC Influenza A/B, COVID-19 antigen (12/19/2024 8:37 AM FUR BUYER) Influenza A Ag, POC Negative Negative [facility] Influenza B Ag, POC Negative Negative [facility] COVID-19 Ag POC Presumptive Negative Presumptive Negative, Invalid [facility] Nasal 12/19/2024 8:37 AM FUR BUYER Beba Joseph NP POINT OF CARE TEST ORDERAB LES Final Result [facility] [address] [place] [address] * POCT rapid strep A (12/19/2024 8:32 AM FUR BUYER) [facility] Rapid Strep A, POC Negative Negative Swab 12/19/2024 8:32 AM FUR BUYER Beba Joseph NP POINT OF CARE TEST ORDERAB LES Final Result * SCAN - LABS (11/13/2024) Provider Scanning Edited Result - Final * High Risk HPV DNA Detection with Genotyping (Molecular component) (01/29/2024 3:14 PM FUR BUYER) Pathologist [facility] HPV HR 16 Not Detected Not Detected [facility] Comment:Testing performed by : [facility], [address] [facility], [place]., [address] HPV HR 18 Not Detected Not Detected SHERLY LEE Comment:Testing performed by : [facility], [address] [facility], [place]., [address] HPV HR Non 16/18 Not Detected Not [...] this test have been verified by the [facility] Molecular Infectious Disease laboratory. Correlate with separately reported cytology results, as applicable. Interpretive data last revised 23 Testing performed by: [facility], [address] [place]., [address] Endocervical 01/29/2024 3:14 PM FUR BUYER 02/02/2024 9:38 AM CDT Narrative [facility] 02/03/2024 4:46 AM CDT Clinical history and diagnosis->screening Testing type->Screening Last menstrual period (date if known)->iud Ly Gonsalez MD LAB BODY FLUIDS AND STOOL S ORDERABLES Final Result [facility] [address] [facility] Department [place] [address] [facility] from Last 3 Months or Most Recently Relevant to Health Maintenance Insurance [employer] OOS ID.me ACCESS OOS ID.me ACCESS OOS Care Teams Boat Ride Operator Relationship Specialty Start Date End Date Rita Sykes PA [address] [facility] [address] [place] [address] PCP - General Internal Medicine 04/05/21
--- OUTSIDE RECORDS SUMMARY | 2025-02-04 15:32 | XMS_ITS | Encounter Summary ---
Author Organization [facility] Address [address] [place] [address] Care Team Providers Care Hydrodynamics Professor Name Role Phone Rita Sykes Primary Care Provider [phone] Encounter Details Date Type Department Care Team (Late st Contact Info) Description 11/13/[address] 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
--- OUTSIDE RECORDS SUMMARY | 2025-02-04 15:32 | XMS_ITS | Clinical Summary ---
Author [place] [facility] [place] [facility] Address [address] [place] [address] Care Team Providers Care Php Mysql Web Developer Name Role Phone Rita Sykes Primary Care Provider [phone] Allergies Active Allergy Reactions Criticality Noted Date [...] 30 tablet 2 01/12/20 25 Active vit 43-frbt-chuqr-dha 27mg iron- 800 mcg-250 mg capsule Take [...] 01/08/2025 Assessment & Plan (01/08/2025 3:37 PM ENOLOGIST): Patient has noticed right wrist pain. 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 And encouraged symptomatic treatment available [id number]. Symptoms worsen or do not resolve or [...] 024 Assessment & Plan (01/08/2024 9:13 AM ENOLOGIST): 2010 -- Dr Dale in [place] Right dismembered pyleoplasty Flank pain 01/08/2024 Assessment & Plan (01/10/2024 11:14 PM ENOLOGIST): Patient was treated for UTI last week. [...] 11/30/2023 Assessment & Plan (12/06/2023 2:23 PM ENOLOGIST): Check labs Diabetes mellitus screening 11/30/2023 Assessment & Plan (01/10/2024 11:12 PM ENOLOGIST): Check labs Assessment & Plan (12/06/2023 2:23 PM ENOLOGIST): Check labs Fatigue 11/30/2023 Assessment & Plan (01/10/2024 11:12 PM ENOLOGIST): Probably multifactorial. Check labs and followup to re-evaluate Assessment & Plan (12/06/2023 2:24 PM ENOLOGIST): Probably multifactorial. Check labs and followup to [...] 11/30/2023 Assessment & Plan (12/06/2023 2:24 PM ENOLOGIST): Continue per Psychiatry History of COVID-19 11/30/2023 Assessment & Plan (12/06/2023 2:24 PM ENOLOGIST): Recent history of COVID. She is feeling much better. Insomnia 06/12/2023 Assessment & Plan (06/12/2023 4:08 PM CDT): Patient has been following with psychiatrist up near [place]. She is no longer able to see her. Trying to establish with a local psychiatrist but needs assistance with medications as she has been off her medications for a couple of days now. Tried sending the Klonopin to [facility] but this is not preferred by her [...] Overview (12/06/2023): Managed by MAXINE Lopez in [place], [place] via telemedicine 2022-- transferred to Dr. Marielle Pickett Assessment & Plan (12/06/2023 2:23 PM ENOLOGIST): Managed by Dr. Pickett - Psychiatry Continue Adderall and Klonopin. She feels like her anxiety is really out of control and is going to work with Dr. Pickett to adjust medications. Assessment & Plan (06/12/2023 4:06 PM CDT): Patient has been following with psychiatrist up near [place]. She is no longer able to see her. Trying to establish with a local psychiatrist but needs assistance with medications as she has been off her medications for a couple of days now. Tried sending the Klonopin to [facility] but this is not preferred by her [...] 05/17/2022 Assessment & Plan (12/06/2023 2:23 PM ENOLOGIST): Managed by Dr. Pickett - Psychiatry Continue Adderall and Klonopin. She feels like her anxiety is really out of control and is going to work with Dr. Pickett to adjust medications. Assessment & Plan (06/12/2023 4:08 PM CDT): Patient has been following with psychiatrist up near [place]. She is no longer able to see her. Trying to establish with a local psychiatrist but needs assistance with medications as she has been off her medications for a couple of days now. Tried sending the Klonopin to [facility] but this is not preferred by her [...] 01/02/2022 Assessment & Plan (01/08/2025 3:35 PM ENOLOGIST): Weight/BMI is in healthy range. Continue healthy lifestyle to maintain. Assessment & Plan (07/23/2024 9:48 PM CDT): Weight/BMI is in healthy range. Continue healthy lifestyle to maintain. Assessment & Plan (05/16/2024 11:30 PM CDT): Weight/BMI is in healthy range. Continue healthy lifestyle to maintain. Assessment & Plan (01/02/2022 1:47 PM ENOLOGIST): Weight/BMI is in healthy range. Continue healthy lifestyle to maintain. Skin lesion 05/18/2021 Assessment & Plan (01/04/2022 2:24 PM ENOLOGIST): [facility]. She will [...] 024 Assessment & Plan (01/10/2024 11:12 PM ENOLOGIST): Weight/BMI is in healthy range. Continue healthy lifestyle to maintain. Assessment & Plan (12/06/2023 2:23 PM ENOLOGIST): Weight/BMI is in healthy range. Continue healthy [...] 05/17/2022 Assessment & Plan (01/04/2022 2:24 PM ENOLOGIST): Check labs Lipid screening 01/04/2022 05/17/2022 Assessment & Plan (01/04/2022 2:24 PM ENOLOGIST): Check labs Fatigue 01/04/2022 05/17/2022 Assessment & Plan (01/04/2022 2:24 PM ENOLOGIST): Probably multifactorial. Check labs and followup to re-evaluate Bacterial conjunctivitis of left eye 05/22/2021 05/17/2022 Assessment & Plan (01/04/2022 2:24 PM ENOLOGIST): Her symptoms seem most consistent with a [...] Department Care Team Description 02/04/2025 Orders Only [facility] Obstetrical Gynecology [address] [place] [phone] Zahra Mcdaniel MD 01/23/2025 Results Follow-Up [facility] [address] [place] [address] Shiv Gamez MD 01/20/2025 1:30 PM ENOLOGIST Lab [facility] [address] [address] Encounter for supervision of other normal in first trimester 01/20/2025 1:14 PM ENOLOGIST - 01/20/2025 11:59 PM ENOLOGIST Hospital Encounter [facility] Building [address] [address] Encounter for supervision of other normal in first trimester Discharge Disposition: Discharge to home or self care 01/20/2025 11:30 AM ENOLOGIST Office Visit [facility] Obstetrical Gynecology [address] [place] [phone] Shiv Gamez MD Encounter for supervision of other normal in first trimester (Primary Dx); Bipolar disorder in remission 01/20/2025 11:00 AM ENOLOGIST Clinical Support [facility] Obstetrical Gynecology [address] [place] [address] [place] [phone] 01/20/2025 10:15 AM ENOLOGIST Clinical Support [facility] Obstetrical Gynecology [address] [place] [address] [place] [phone] Encounter to establish gestational age using ultrasound (Primary Dx) 01/02/[address] [place] [phone] Rita Sykes PA Forms Request 12/28/2024 11:00 AM ENOLOGIST Office Visit [address] [place] [phone] Rita Sykes PA Right wrist pain; BMI 26.0-26.9,adult 12/27/2024 Nurse Triage [address] [place] [phone] Rita Sykes PA 12/21/2024 Orders Only [facility] Con[facility]ient [facility] at [address] [phone] Berna Lewis, MAXINE Strep throat (Primary Dx) 12/19/2024 9:17 AM ENOLOGIST - 12/19/2024 11:59 PM ENOLOGIST Hospital Encounter [address] [address] Sore throat; Rectal bleeding; Altered bowel habits Discharge Disposition: Discharge to home or self care 12/19/2024 9:00 AM ENOLOGIST Lab [facility] Outpatient Lab at [address] [phone] Acute cough (Primary Dx) 12/19/2024 8:15 AM ENOLOGIST Office Visit [facility] at [address] [phone] Beba Joseph, MAXINE Sore throat (Primary Dx); Acute cough 11/21/2024 Nurse Triage [address] [place] [phone] Rita Sykes PA 11/18/2024 3:30 PM ENOLOGIST Office Visit [facility] Medical [facility] Internal Medicine at [place] [address] [facility] [address] [place] [address] Genie De Anda, MAXINE Fever blister (Primary Dx); BMI 25.0-25.9,adult 11/15/2024 Telephone [facility] Family Medicine [address] [facility] [address] [place] [phone] Rita Sykes PA 11/13/2024 Orders Only [facility] [place] [facility] [address] [place] [address] Scanning, Provider from Last 3 Months Immunizations [...] staff should administer the PHQ-9) 0 12/28/2024 [place] Depression Scale Answer Date Recorded [place] Depression Scale Total 10 01/20/2025 The thought [...] Epidur al N Livin g Complications:None Delivery Location:[facility] Current Summary Episode Dates Number of Fetuses [...] Delivery Plans Planned delivery method:Vaginal Planned delivery location:[facility] Overview Surveillance of EDC by LMP [...] the pt and her questions were answered. OGIST Progress Notes - Office Visi t - [...] (nausea), Disp: 30 tablet, Rfl: 2 vit 55-khvw-qzfke-dha 27mg iron- 800 mcg-250 mg capsule, Take [...] Urine 2. Bipolar disorder in remission (CMS/HCC) ([facility]) Surveillance of EDC by LMP = 8 [...] questions answered. Follow-up: 4wks Rhea Gamez MD OGIST Last Filed Vital Signs Vital Sign Reading Time Taken Comments Blood Pressure 100/58 01/20/2025 11:18 AM ENOLOGIST Pulse 60 12/28/2024 11:15 AM ENOLOGIST Temperature 37 C (98.6 F) 12/28/2024 11:15 AM ENOLOGIST Respiratory Rate 20 12/19/2024 8:15 AM ENOLOGIST Oxygen Saturation 99% 12/28/2024 11:15 AM ENOLOGIST Inhaled Oxygen Concentration - - Weight 78 kg (172 lb) 01/20/2025 11:18 AM ENOLOGIST Height 172.7 cm (5' 8 ) 01/20/2025 11:01 AM ENOLOGIST Body Mass Index 26.15 01/20/2025 11:01 AM ENOLOGIST Plan of Treatment Health Maintenance Due Date [...] WITH REFLEX CONFIRMATION Routine 01/20/2025 1:40 PM ENOLOGIST Encounter for supervision of other normal in first trimester ANTIBODY SCREEN Routine 01/20/2025 1:39 PM ENOLOGIST Encounter for supervision of other normal in first trimester ABO/RH Routine 01/20/2025 1:39 PM ENOLOGIST Encounter for supervision of other normal in first trimester CBC WITHOUT DIFFERENTIAL Routine 01/20/2025 1:39 PM ENOLOGIST Encounter for supervision of other normal in first trimester HEMOGLOBIN A1C Routine 01/20/2025 1:39 PM ENOLOGIST Encounter for supervision of other normal in first trimester HEMOGLOBIN ANALYSIS BY ELECTROPHORESIS Routine 01/20/2025 1:39 PM ENOLOGIST Encounter for supervision of other normal in first trimester TYPE AND SCREEN Routine 01/20/2025 1:39 PM ENOLOGIST Encounter for supervision of other normal in first trimester HEPATITIS B SURFACE ANTIGEN Routine 01/20/2025 1:39 PM ENOLOGIST Encounter for supervision of other normal in first trimester HEPATITIS C ANTIBODY Routine 01/20/2025 1:39 PM ENOLOGIST Encounter for supervision of other normal in first trimester HIV 1/2 ANTIBODY PLUS P24 ANTIGEN Routine 01/20/2025 1:39 PM ENOLOGIST Encounter for supervision of other normal in first trimester RPR Routine 01/20/2025 1:39 PM ENOLOGIST Encounter for supervision of other normal in first trimester RUBELLA IGG Routine 01/20/2025 1:39 PM ENOLOGIST Encounter for supervision of other normal in first trimester TRICHOMONAS VAGINALIS PCR Routine 01/20/2025 11:39 AM ENOLOGIST Encounter for supervision of other normal in first trimester N. GONORRHOEAE/C. TRACHOMATIS AMPLIFICATION Routine 01/20/2025 11:39 AM ENOLOGIST Encounter for supervision of other normal in first trimester URINE CULTURE Routine 01/20/2025 11:39 AM ENOLOGIST Encounter for supervision of other normal in first trimester US OB UNDER 14 WEEKS Schedule Routine, Read Routine (OP Routine) 01/20/2025 10:42 AM ENOLOGIST Encounter to establish gestational age using ultrasound DIFFERENTIAL AUTO Routine 12/19/2024 9:1 7 AM ENOLOGIST Rectal bleeding Altered bowel habits TISSUE TRANSGLUTAMINASE, IGA Routine 12/19/2024 9:17 AM ENOLOGIST Rectal bleeding Altered bowel habits ERYTHROCYTE SEDIMENTATION RATE Routine 12/19/2024 9:17 AM ENOLOGIST Rectal bleeding Altered bowel habits CBC WITH AUTO DIFFERENTIAL Routine 12/19/2024 9:17 AM ENOLOGIST Rectal bleeding Altered bowel habits CRP (ACUTE PHASE) Routine 12/19/2024 9:1 7 AM ENOLOGIST Rectal bleeding Altered bowel habits THROAT CULTURE Routine 12/19/2024 9:17 AM ENOLOGIST Sore throat POC INFLUENZA A/B, COVID-19 ANTIGEN Routine 12/19/2024 8:37 AM ENOLOGIST Sore throat POCT RAPID STREP Routine 12/19/2024 8:32 AM ENOLOGIST Sore throat SCAN - LABS 11/13/2024 HIGH RISK HPV DNA DETECTION WITH GENOTYPING Routine 01/29/2024 3:14 PM ENOLOGIST Well woman exam from Last 3 Months or Most Recently Relevant to Health Maintenance Results * (ABNORMAL) Drugs of Abuse Screen, Urine with Reflex Confirmation (01/20/2025 1:40 PM ENOLOGIST) [facility] Amphetamine, ur Not Detected CutOff 500ng/mL Comment: Interpretive Data - Amphetamines: Samples containing greater than 500 ng/mL d-methamphetamine or other cross-reacting amphetamine compounds are reported as positive. Amphetamine immunoassays are subject to significant false positive rates due to cross-reactivity of non-amphetamine drugs. Confirmatory testing required for definitive results. Current Interpretive Data was last reviewed 2023. Testing performed by: [address] [address] Barbiturates, ur Not Detected CutOff 200ng/mL [facility] Comment: Interpretive Data - Barbiturates: Samples containing greater than 200 ng/mL secobarbital or other cross-reacting barbiturate compounds are reported as positive. False positive and false negative results are possible. Confirmatory testing required for definitive results. Current Interpretive Data was last reviewed 2023. Testing performed by: [address] [address] Benzodiazepines, ur Not Detected CutOff 100ng/mL [facility] Comment: Interpretive Data - Benzodiazepines: Samples containing greater than 100 ng/mL nordiazepam or other cross-reacting compounds are reported as positive. False positive and false negative results are possible. Confirmatory testing required for definitive results. Current Interpretive Data was last reviewed 2023. Testing performed by: [address] [address] Cannabinoids, ur Screen Positive, presumptive (A) CutOff 50 ng/mL [facility] Comment: Interpretive Data - Cannabinoids: Samples containing greater than 50 ng/mL delta-9 THC -COOH or other cross- reacting compounds are reported as positive. False positive and false negative results are possible. Confirmatory testing required for definitive results. Current Interpretive Data was last reviewed 2023. Testing performed by: [address] [address] Cocaine, ur Not Detected CutOff 150ng/mL [facility] Comment: Interpretive Data - Cocaine: Samples containing greater than 150 ng/mL benzoylecgonine or other cross- reacting compounds are reported as positive. False positive and false negative results are possible. Confirmatory testing required for definitive results. Current Interpretive Data was last reviewed 2023. Testing performed by: [facility], [address] [place] [address]., [address] Fentanyl, Ur Not Detected CutOff 5 ng/mL [facility] Comment: Interpretive Data - Fentanyl: Samples containing greater than 1 ng/mL fentanyl or other cross-reacting fentanyl compounds are reported as positive. False positive and false negative results are possible. Confirmatory testing required for definitive results. Current Interpretive Data was last reviewed 2023. Testing performed by: [address] [address] Methadone, ur Not Detected CutOff 300ng/mL [facility] Comment: Interpretive Data - Methadone: Samples containing greater than 300 ng/mL d,l-methadone or other cross-reacting compounds are reported as positive. False positive and false negative results are possible. Confirmatory testing required for definitive results. Current Interpretive Data was last reviewed 2023. Testing performed by: [address] [address] Opiates, ur Not Detected CutOff 300ng/mL [facility] Comment: Interpretive Data - Opiates: Samples containing greater than 300 ng/mL morphine or other cross-reacting compounds are reported as positive. False positive and false negative results are possible. Confirmatory testing required for definitive results. Current Interpretive Data was last reviewed 2023. Testing performed by: [address] [address] Oxycodone, ur Not Detected CutOff 100ng/mL [facility] Comment: Interpretive Data - Oxycodone: Samples containing greater than 100 ng/mL oxycodone or other cross-reacting compounds are reported as positive. False positive and false negative results are possible. Confirmatory testing required for definitive results. Current Interpretive Data was last reviewed 2023. Testing performed by: [address] [address] Phencyclidine, ur Not Detected CutOff 25 ng/mL [facility] Comment: Interpretive Data - Phencyclidine: Samples containing greater than 25 ng/mL phencyclidine or other cross-reacting compounds are reported as positive. False positive and false negative results are possible. Confirmatory testing required for definitive results. Current Interpretive Data was last reviewed 2023. Testing performed by: [facility], [address] [place] [address]., [address] Urine Creatinine 224 mg/dL [facility] Comment: Interpretive Data Urine Creatinine: < 10 mg/dL is extremely dilute = or > 10 but < 20 mg/dL is dilute = or > 20 mg/dL is normal Current Interpretive Data was last revised on 2018. Testing performed by: [facility], [address] [place] [address]., [address] Urine 01/20/2025 1:40 PM ENOLOGIST 01/20/2025 3:54 PM ENOLOGIST Narrative [facility] - 01/20/2025 4:42 PM ENOLOGIST Drug of Abuse screening is performed by immunoassay for medical purposes only. This is not to be used for Pain Management purposes. If Detected, confirmation testing will be performed for Amphetamines, Cocaine, Fentanyl, Methadone, Opiates, Oxycodone or Phencyclidine. Shiv Gamez MD LAB URINE ORDERABLES Fin al Result Performing Organization Address [facility] Co de Phone Number [facility] [address] [facility] Department [place] [address] * HIV 1/2 Antibody plus p24 Antigen Blood (01/20/2025 1:39 PM ENOLOGIST) [facility] HIV 1/2 ab + p24 ag Nonreactive Nonreactive Comment:Nonreactive for HIV- 1 antigen and HIV-1/HIV-2 antibodies. No laboratory evidence of HIV infection. If acute HIV infection is suspected, consider testing for HIV-1 RNA. Current interpretive data was last revised on 22. Blood 01/20/2025 1:39 PM ENOLOGIST 01/20/2025 6:58 PM ENOLOGIST Shiv Gamez MD LAB MICROBIOLOGY - GENER AL ORDERABLES Final Result Performing Organization Address [facility] Co de Phone Number [facility] LEE [address] [facility] Department [place] [address] * (ABNORMAL) Hemoglobin analysis by electrophoresis (01/20/2025 1:39 PM ENOLOGIST) RBC 3.82(L) 3.90 - 5.20 M/cumm Comment:Testing performed by : [facility], [address] [facility], [address] Hgb 11.9 11.9 - 15.5 g/dL SHERLY LEE Comment:Testing performed by : [facility], [address] [facility], [address] MCV 91.4 81.3 - 96.4 fL SHER[facility] LEE Comment:Testing performed by : [facility], [address] [facility], [address] Rdw 12.7 11.1 - 14.9 % SHERLY LEE Comment:Testing performed by : [facility], [address] [facility], [address] Hgb electrophores is, interp Normal Hemoglobin Pattern - For Age SHERLY LEE Comment:Testing performed by : [facility], [address] [facility], [address] Hgb A 97.5 96.0 - 98.5 % SHERLY LEE Comment:Testing performed by : [facility], [address] [facility], [address] Hgb A2 2.5 1.5 - 3.2 % SHERLY LEE Comment:Testing performed by : [facility], [address] [facility], [address] Hgb F <0.4 0.0 - 0.9 % SHERLY LEE Comment:Testing performed by : [facility], [address] [facility], [address] Blood 01/20/2025 1:39 PM ENOLOGIST 01/20/2025 8:21 PM ENOLOGIST Shiv Gamez MD LAB BLOOD ORDERABLES Fin al Result Performing Organization Address [facility] Co de Phone Number SHRELY [address] [address] * Hepatitis C antibody Blood (01/20/2025 1:39 PM ENOLOGIST) Hep C Ab Nonreactive Nonreactive Comment: Antibodies [...] revised on 2020. Blood 01/20/2025 1:39 PM ENOLOGIST 01/20/2025 6:58 PM ENOLOGIST Shiv Gamez MD LAB MICROBIOLOGY - GENER AL ORDERABLES Final Result Performing Organization Address [facility] de Phone Number [address] [place] [address] * ABO/Rh (01/20/2025 1:39 PM ENOLOGIST) Pathologist [facility] ABO/Rh A Positive Comment:Testing performed by : [facility], [address] [place] [address]., [address] Blood 01/20/2025 1:39 PM ENOLOGIST 01/20/2025 4:00 PM ENOLOGIST Narrative [facility] - 01/20/2025 4:37 PM ENOLOGIST Has the patient had Daratumumab or Isatuximab in the past 6 months?->Unknown Hx of or candidate for Bone Marrow/Stem Cell transplant?->No Shiv Gamez MD LAB BLOOD BANK TEST ORDE RABLES Final Result Performing Organization Address [facility] Co de Phone Number [facility] [place] [address] * Rubella IgG antibody Blood (01/20/2025 1:39 PM ENOLOGIST) Pathologist [facility] Rubella IgG Reactive Reactive Blood 01/20/2025 1:39 PM ENOLOGIST 01/20/2025 6:58 PM ENOLOGIST Shiv Gamez MD LAB MICROBIOLOGY - GENER AL ORDERABLES Final Result Performing Organization Address [facility] Co de Phone Number [address] [place] [address] * RPR Blood (01/20/2025 1:39 PM ENOLOGIST) [facility] RPR Nonreactive Nonreactive Comment:Testing performed by : [facility], [address] [facility]., [address] Blood 01/20/2025 1:39 PM ENOLOGIST 01/20/2025 8:21 PM ENOLOGIST Shiv Gamez MD LAB MICROBIOLOGY - GENER AL ORDERABLES Final Result Performing Organization Address [facility] Co de Phone Number [address] [place] [address] * Hepatitis B Surface Antigen Blood (01/20/2025 1:39 PM ENOLOGIST) [facility] HepBsAg Nonreactive Nonreactive Blood 01/20/2025 1:39 PM ENOLOGIST 01/20/2025 6:58 PM ENOLOGIST Shiv Gamez MD LAB MICROBIOLOGY - GENER AL ORDERABLES Final Result Performing Organization Address [facility] Co de Phone Number [address] [place] [address] * (ABNORMAL) CBC without differential (01/20/2025 1:39 PM ENOLOGIST) WBC 10.7(H) 3.8 - 9.9 K/cumm Comment:Testing performed by : [address] [address] Hgb 12.1 11.9 - 15.5 g/dL [facility] Comment:Testing performed by : [address] [address] Hct 36.1 35.6 - 45.5 % [facility] Comment:Testing performed by : [address] [address] Plt 180 150 - 400 K/cumm [facility] Comment:Testing performed by : [address] [address] MPV 12.1 9.1 - 12.3 fL [facility] Comment:Testing performed by : [address] [address] RBC 3.96 3.90 - 5.20 M/cumm [facility] Comment:Testing performed by : [address] [address] MCV 91.2 81.3 - 96.4 fL [facility] Comment:Testing performed by : [address] [address] MCH 30.6 27.1 - 33.3 pg [facility] Comment:Testing performed by : [address] [address] MCHC 33.5 32.3 - 35.7 g/dL [facility] Comment:Testing performed by : [address] [address] RDW CV 12.5 11.1 - 14.9 % [facility] Comment:Testing performed by : [address] [address] RDW SD 41.3 35.7 - 48.1 fL [facility] Comment:Testing performed by : [address] [address] NRBC abs 0.00 0.00 - 0.01 K/cumm [facility] Comment:Testing performed by : [address], [address] Blood 01/20/2025 1:39 PM ENOLOGIST 01/20/2025 3:58 PM ENOLOGIST Shiv Gamez MD LAB BLOOD ORDERABLES Fin al Result Performing Organization Address City/[facility]/ZIP Co de Phone Number SH[facility] [place] [address] * Antibody screen (01/20/2025 1:39 PM ENOLOGIST) Pathologist [facility] Darlyn, indirect, Gel Interpretation Negative ABSC Comment:Testing performed by : [address] [address] Blood 01/20/2025 1:39 PM ENOLOGIST 01/20/2025 4:00 PM ENOLOGIST Narrative SHERLY - 01/20/2025 4:37 PM ENOLOGIST Has the patient had Daratumumab or Isatuximab in the past 6 months?->Unknown Hx of or candidate for Bone Marrow/Stem Cell transplant?->No Shiv Gamez MD LAB BLOOD BANK TEST ORDE RABLES Final Result Performing Organization Address [facility] Co de Phone Number [address] [address] * Hemoglobin A1c (01/20/2025 1:39 PM ENOLOGIST) Pathologist [facility] Hgb A1C 5.4 4.0 - 5.6 % Comment:Testing performed by : [address] [address] Estimated Average Glucose 108 mg/dL SHERLY Comment: The ADA recommends reporting an estimated Average Glucose (eAG) with all Hemoglobin A1c results using the equation derived from a study of 507 normal and diabetic adults. Minority populations were underrepresented and children were not included. (Diabetes Care 31:7568-6328, 2008). The eAG is not equivalent to a fasting glucose. Testing performed by: [address] [address] Blood 01/20/2025 1:39 PM ENOLOGIST 01/20/2025 3:58 PM ENOLOGIST Shiv Gamez MD LAB BLOOD ORDERABLES Fin al Result Performing Organization Address [facility] de Phone Number SHERLY [address] [address] * N. gonorrhoeae/C. trachomatis Amplification Urine (01/20/2025 11:39 AM ENOLOGIST) Pathologist [facility] C. trachomatis Not Detected [facility] Comment:Testing performed by : [facility], [address] [place] [address]., [id number] N. gonorrhoeae Not Detected [facility] Comment: Interpretive Data This assay detects Chlamydia trachomatis and Neisseria gonorrhoeae by nucleic acid amplification testing (NAAT). This assay has been cleared by the [place] Food and Drug administration. The performance characteristics of this test have been verified by the [facility] Molecular Infectious Disease laboratory. The performance characteristics of this test have not been evaluated in individuals less than 14 years of age. Current Interpretive Data was last revised on 2023. Testing performed by: [facility], [address] [place]., [address] Urine (None) 01/20/2025 11:3 9 AM ENOLOGIST 01/20/2025 10:27 PM ENOLOGIST Shiv Gamez MD LAB MICROBIOLOGY - GENER AL ORDERABLES Final Result Performing Organization Address [facility] de Phone Number SHERLY [address] [place] [address] [facility] * Trichomonas vaginalis PCR Urine (01/20/2025 11:39 AM ENOLOGIST) [facility] Trichomonas DNA Not Detected [facility] Comment: Interpretive Data This assay detects Trichomonas vaginalis by nucleic acid amplification testing (NAAT). This assay has been cleared by the [place] Food and Drug administration. The performance characteristics of this test have been verified by the [facility] Molecular Infectious Disease laboratory. The performance of this test has not been evaluated in individuals less than 18 years of age. Current Interpretive Data was last revised on 2023. Testing performed by: [facility], [address] [place]., [address] Urine 01/20/2025 11:3 9 AM ENOLOGIST 01/20/2025 10:27 PM ENOLOGIST Shiv Gamez MD LAB MICROBIOLOGY - GENER AL ORDERABLES Final Result Performing Organization Address [facility] de Phone Number [address] [place] [address] [facility] * Urine culture Urine, clean voided (01/20/2025 11:39 AM ENOLOGIST) Report Final Report: No growth Comment:Testing performed by : [facility], [address] [place] [address]., [id number] Urine, clean voided 01/20/2025 11:39 AM ENOLOGIST 01/20/2025 10:11 PM ENOLOGIST Narrative SHERLY - 01/22/2025 7:24 AM ENOLOGIST Testing performed by [facility] Microbiology Laboratory ([phone]) Shiv Gamez MD LAB MICROBIOLOGY - GENER AL ORDERABLES Final Result Performing Organization Address [facility] de Phone Number [address] [address] * US Ob Under 14 Weeks (01/20/2025 10:42 AM ENOLOGIST) Heart Rate 173 bpm CRL 1.8 cm Anatomical Region Laterality Modality Abdomen N/A Ultrasound Narrative 01/20/2025 1:12 PM ENOLOGIST Indication: new ob, dating number: 1 GA by LMP 11/24/24 8w1d OMID 08/31/25 GA by today's exam 8w2d [facility] 08/30/25 CRL 1.8 cm FHR 173 bpm Senior Sales Engineer comments: Retroflexed uterus. Single IUP with positive [...] Final * Differential, auto (12/19/2024 9:17 AM ENOLOGIST) Neutrophil abs 4.7 1.5 - 6.5 K/cumm [...] revised on 2018. Monocyte pct 7.1 % [facility] Comment: Interpretive Data Percent cell count reference [...] revised on 2018. Blood 12/19/2024 9:17 AM ENOLOGIST 12/19/2024 4:16 PM ENOLOGIST Nathaly GONZÁLES LAB BLOOD ORDERABLES Fi nal Result [facility] [address] Department [place] [address] * (ABNORMAL) CBC with auto differential (12/19/2024 9:17 AM ENOLOGIST) WBC 8.0 3.8 - 9.9 K/cumm Hgb 13.2 11.9 - 15.5 g/dL [facility] Hct 41.6 35.6 - 45.5 % [facility] Plt 199 150 - 400 K/cumm [facility] MPV 11.8 9.1 - 12.3 fL [facility] RBC 4.36 3.90 - 5.20 M/cumm [facility] MCV 95.4 81.3 - 96.4 fL [facility] MCH 30.3 27.1 - 33.3 pg [facility] MCHC 31.7(L) 32.3 - 35.7 g/dL [facility] RDW CV 12.6 11.1 - 14.9 % [facility] RDW SD 44.2 35.7 - 48.1 fL [facility] NRBC abs 0.00 0.00 - 0.01 K/cumm [facility] Blood 12/19/2024 9:17 AM ENOLOGIST 12/19/2024 4:16 PM ENOLOGIST Nathaly GONZÁLES LAB BLOOD ORDERABLES Fi nal Result Performing Organization Address [facility] de Phone Number SHERLY [address] [address] [facility] [place] [address] * Tissue transglutaminase IgA (TGG-IgA Ab) (12/19/2024 9:17 AM ENOLOGIST) TTG ab, IgA <0.5 <=14.9 units/mL Comment: Interpretive data Negative: <15 units/mL Positive: > or equal to 15 units/mL Current interpretive data was last revised on 2017. Testing performed by: [facility], [address] [place] [address]., [address] Blood 12/19/2024 9:17 AM ENOLOGIST 12/20/2024 10:21 AM ENOLOGIST Nathaly Barraganella GONZÁLES LAB BLOOD ORDERABLES Fi nal Result Performing Organization Address [facility] de Phone Number SHERLY [address] [address] [place] [address] * Erythrocyte sedimentation rate (12/19/2024 9:17 AM ENOLOGIST) Pathologist [facility] Erythrocyte sedimentation rate 11 1 - 20 mm/hr Blood 12/19/2024 9:17 AM ENOLOGIST 12/19/2024 4:16 PM ENOLOGIST Nathaly GONZÁLES LAB BLOOD ORDERABLES Fi nal Result Performing Organization Address [facility] [place] [address] [address] [place] [address] * (ABNORMAL) Throat culture Throat (12/19/2024 9:17 AM ENOLOGIST) Pathologist [facility] Report Final Report: Streptococcus pyogenes (Group A Streptococci) Streptococcus pyogenes is uniformly susceptible to beta-lactam antibiotics and vancomycin. Routine susceptibility testing is not performed. (.) Comment:Testing performed by : [facility], [address] [place] [address] Organism STREPTOCOCCUS PYOGENES (GROUP A STREPTOCOCCI) SHERLY Throat 12/19/2024 9:17 AM ENOLOGIST 12/19/2024 4:45 PM ENOLOGIST Narrative SHERLY - 12/21/2024 8:32 AM ENOLOGIST Testing performed by [facility] Microbiology Laboratory ([phone]). Beba Joseph NP LAB MICROBIOLOGY - GENERAL ORDERABLES Final Result [facility] [address] [address] [address] Department [place] [address] * CRP (acute phase) (12/19/2024 9:17 AM ENOLOGIST) Pathologist [facility] CRP <3.0 <=10.0 mg/L Blood 12/19/2024 9:17 AM ENOLOGIST 12/19/2024 4:16 PM ENOLOGIST Nathaly GONZÁLES LAB BLOOD ORDERABLES Fi nal Result Performing Organization Address [facility]/ZIP Co de Phone Number SHERLY [address] [address] [address] [place] [address] * POC Influenza A/B, COVID-19 antigen (12/19/2024 8:37 AM ENOLOGIST) Influenza A Ag, POC Negative Negative [facility] Influenza B Ag, POC Negative Negative [facility] COVID-19 Ag POC Presumptive Negative Presumptive Negative, Invalid [facility] Nasal 12/19/2024 8:37 AM ENOLOGIST Beba Joseph [employer]ANNING AIDE POINT OF CARE TEST ORDERAB LES Final Result Performing Organization Address City/[facility]/ZIP Co de Phone Number [facility] [address] [place] [address] * POCT rapid strep A (12/19/2024 8:32 AM ENOLOGIST) Rapid Strep A, POC Negative Negative Swab 12/19/2024 8:32 AM ENOLOGIST Beba Joseph NP POINT OF CARE TEST ORDERAB LES Final Result * SCAN - LABS (11/13/2024) Provider Scanning Edited Result - Final * High Risk HPV DNA Detection with Genotyping (Molecular component) (01/29/2024 3:14 PM ENOLOGIST) [facility] HPV HR 16 Not Detected Not Detected [facility] Comment:Testing performed by : [facility], [address] [place]., [address] HPV HR 18 Not Detected Not Detected SHERLY LEE Comment:Testing performed by : [facility], [address] [place]., [address] HPV HR Non 16/18 Not Detected Not [...] this test have been verified by the [facility] Molecular Infectious Disease laboratory. Correlate with separately reported cytology results, as applicable. Interpretive data last revised 23 Testing performed by: [facility], [address] [place]., [address] Endocervical 01/29/2024 3:14 PM ENOLOGIST 02/02/2024 9:38 AM CDT Narrative SHERLY LEE - 02/03/2024 4:46 AM CDT Clinical history and diagnosis->screening Testing type->Screening Last menstrual period (date if known)->iud Ly Gonsalez MD LAB BODY FLUIDS AND STOOL S ORDERABLES Final Result [facility] [address] [facility] Department [place] [address] BJ from Last 3 Months or Most Recently Relevant to Health Maintenance Insurance Light Extraction OOS Light Extraction OOS Light Extraction OOS Care Teams 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
--- OUTSIDE RECORDS SUMMARY | 2025-02-04 15:32 | XMS_ITS | Referral Summary ---
Author Organization [facility] Address [facility] [facility] [place] [address] Care Team Providers Care Billing Collections Specialist Name Role Phone Unavailable Primary Care Provider Unavailabl e Source Comments [facility],non-owned Affiliates and Associated Physician Practices is amultiple site organization consisting of ambulatory clinics and hospital sitesin [place], [place], [place] and [place]. This disclosure is being madepursuant to the Care Everywhere program and may not contain all information available regarding this patient. Last updated 18.[facility] Allergies No known active allergies Medications * Be aware that medications may not be up to date on this document. Alwaysverify current medications with the patient. Medication Sig Dispensed Refills Start Date End Date Status naloxone HCl (Narcan) 4 MG/0.1ML nasal spray [place] 1 (one) spray into the nose as [...]
--- NOTE | 2025-02-04 15:50 | ED.NAVMDI ---
HPI - Nausea/Vomiting/Diarrhea General Chief complaint: Nausea/Vomiting/Diarrhea Stated complaint: N/V 10WKS PREG Time Seen by Provider: 02/04/25 15:23 Source: patient Mode of arrival: ambulatory Limitations: no limitations History of Present Illness HPI Narrative: This is a 34-year-old female that presents to the emergency department for nausea and vomiting. Ongoing since yesterday. She is currently 10 weeks . Reports her OB is in [place]. She has had care. Does endorse some dysuria. Denies fevers, vomiting. Related Data Home Medications ?Medication ?Instructions ?Recorded ?Confirmed ?Last Taken ?Type doxylamine 10 mg-pyridoxine (vit 2 tablet PO QHS 02/04/25 02/04/25 Unknown History B6) 10 mg tablet,delayed release prochlorperazine maleate 5 mg 5 mg PO DAILY 02/04/25 02/04/25 Unknown History tablet Allergies Allergy/AdvReac Type Severity Reaction Status Date / Time No Known Allergies Allergy Verified 02/04/25 16:02 Review of Systems Review of Systems: CONSTITUTIONAL: Denies fever GASTROINTESTINAL: Reports nausea and vomiting. Denies abdominal pain GENITOURINARY: Reports dysuria All systems reviewed & are unremarkable except as noted in HPI and below PMFSH Past Medical History Medical History (Updated 02/04/25 @ 19:22 by Ella Snider PA-C) Bipolar 1 disorder Anxiety Achilles tendon tear ACL tear Surgical History Surgical History S/P ACL repair Social History Social History Smoking status: Former smoker Alcohol intake: never Substance use: never Living arrangements: with roommate(s) Occupation/Education: student Gender identity (if verbalized by the patient): Male Spiritual care concerns: No Exam Narrative: GENERAL: Well-appearing, well-nourished, and in no acute distress. HEAD: Normocephalic, atraumatic. EYES: EOMI. CHEST: Clear to auscultation. No respiratory distress. No wheezes rales or rhonchi HEART: Regular rate and rhythm. No murmur heard. Normal peripheral pulses. ABDOMEN: Soft, nontender, nondistended, normal active bowel sounds. EXTREMITIES: Normal range of motion. No edema. SKIN: Warm, dry, no rash. NEURO: No focal deficits. Alert and oriented x3. PSYCH: Normal mood and affect Course Course Emergency Course: Patient updated on her workup. Resting comfortably. Tolerated p.o. challenge Vital Signs Vital signs: Vital Signs Temperature 98.2 F 02/04/25 12:48 Pulse Rate 74 02/04/25 12:48 Respiratory Rate 17 02/04/25 12:48 Blood Pressure 119/67 02/04/25 12:48 Pulse Oximetry 100 02/04/25 12:48 Temperature 98.2 F 02/04/25 12:48 Pulse Rate 71 02/04/25 18:54 Respiratory Rate 16 02/04/25 18:54 Blood Pressure 100/66 02/04/25 18:54 Pulse Oximetry 100 02/04/25 18:54 Oxygen Delivery Room Air 02/04/25 15:54 MDM - Nausea/Vomiting/Diarrhea MDM Narrative Medical decision making narrative: Patient presents to the emergency department for nausea and vomiting 1st trimester . Her vitals are stable. She is afebrile and nontoxic appearing. Cbc without leukocytosis. Metabolic panel without concerning findings. Urine without evidence of infection. Influenza and COVID screens are negative. Obstetric ultrasound shows a single live intrauterine gestation. Estimated gestational age 10 weeks and 4 days. Findings of possible chorioamnionitis separation which may be normal at her stage of . Patient updated on her workup. Resting comfortably. Tolerated p.o. challenge. She is to follow up with her OB. She was given warnings to return to the ER Differential Diagnosis Differential diagnosis: Likely food poisoning, gastroenteritis, dehydration and other (nausea and vomiting ) Lab Data Attestation: I reviewed the patient's lab results. 02/04/25 15:58 02/04/25 15:58 Labs: Lab Results 02/04/25 02/04/25 Range/Units 15:58 15:59 WBC 8.1 (4.5-10.0) K/mm3 RBC 4.27 (4.2-5.4) M/mm3 Hgb 13.0 (12.0-15.0) g/dL Hct 39.2 (37.0-47.0) % MCV 91.8 (80-100) fl MCH 30.4 (26-34) pg MCHC 33.2 (32-36) g/dl RDW 12.7 (11.5-14.5) % Plt Count 155 (150-375) k/mm3 MPV 11.4 H (7.4-10.4) fl Immature Gran % (Auto) 0.2 (0-0.5) % Neut % (Auto) 76.7 H (45.5-73.1) % Lymph % (Auto) 14.9 L (18.3-44.2) % [place] % (Auto) 7.8 (2.6-8.5) % Eos % (Auto) 0.2 (0-4.4) % Baso % (Auto) 0.2 (0.2-1.2) % Lymph # (Auto) 1.21 (0.9-3.2) K/mm3 [place] # (Auto) 0.6 (0.1-0.6) K/mm3 Eos # (Auto) 0.0 (0-0.3) K/mm3 Baso # (Auto) 0.0 (0.0-0.1) K/mm3 Abs Immat Gran (auto) 0.02 (0.00-0.031) K/mm3 Absolute Neuts (auto) 6.2 (1.3-6.7) K/mm3 Absolute Nucleated RBC 0.000 (0.0-0.012) K/mm3 Nucleated RBC % 0.0 (0.0-0.2) % Sodium 135 L (137-145) mmol/L Potassium 3.5 (3.4-5.0) mmol/L Chloride 106 (98-107) mmol/L Carbon Dioxide 17 L (22-30) mmol/L Anion Gap 12 (4-12) mmol/L BUN 14 D (7-17) mg/dL Creatinine 0.55 L (0.7-1.0) mg/dL Estim Creat Clear Calc 124 ml/min Estimated GFR > 60 (59 - ) Glucose 93 (65-110) mg/dL Calcium 8.4 (8.4-10.2) mg/dL Total Bilirubin 0.7 (0.2-1.3) mg/dL AST 27 (14-36) U/L ALT 36 H (6-35) U/L Alkaline Phosphatase 37 L (38-126) U/L Total Protein 7.0 (6.3-8.2) g/dL Albumin 3.9 (3.5-5.1) g/dL Lipase 33 (23-300) U/L Beta HCG, Quant 432382.00 mIU/ML Urine Color Yellow (Yellow) Urine Appearance Cloudy H (Clear) Urine pH 6.0 (5.0-9.0) Ur Specific [place] 1.033 (1.001-1.035) Urine Protein 1+ H (Negative) mg/dL Urine Glucose (UA) Negative (Negative) mg/dL Urine Ketones 2+ H (Negative) mg/dL Ur Blood (Man) Negative (Negative) Urine Nitrate Negative (Negative) Urine Bilirubin Negative (Negative) Urine Urobilinogen 1.0 (<2.0) mg/dL Leukocyte Esterase Rfl Negative (Negative) OLE/UL Urine RBC 0-2 (0-2) /hpf Urine WBC 0-5 (0-3) /hpf Ur Squamous Epith Cells Few (Few) /hpf Urine Bacteria Rare /hpf Urine Casts 0-2 Influenza A (RT-PCR) Negative (Negative) Influenza B (RT-PCR) Negative (Negative) SARS-CoV-2 RNA (RT-PCR) Negative (Negative) Imaging Data Radiologist's impression: ITS Impressions Ultrasound 02/04/25 17:03 IMPRESSION: Single, live intrauterine gestation. Yolk sac not visualized. tachycardia at 175 bpm. An echogenic membrane is noted in the gestational sac, which may represent chorioamnionic separation, which can still be normal at this stage in . A large yolk sac is considered less likely given the size greater than 3 cm. Recommend close clinical and sonographic follow-up. Estimated Gestational Age: 10 weeks, 4 days by crown rump length. OMID by ultrasound 08/29/2025. Critical Care Time Critical Care Time Critical Care Time: No Discharge Plan Discharge Clinical Impression: Nausea and vomiting during , Chorioamniotic separation, antepartum Patient Disposition: Home, Self-Care Condition: Improved Instructions: Acute Nausea and Vomiting (ED) Additional Instructions: Return to the ER if you experience fever, chest pain, shortness of breath, abdominal pain with nausea and vomiting, you are unable to keep down liquids or solids, pelvic cramping, vaginal bleeding, or any other symptoms that are concerning to you Take a Vitamin B6 and Unisom (25mg tab) nightly. You can get these medications over the counter. This will help prevent nausea. Reglan as needed for nausea. Small, frequent meals. [place] diet. Remain well hydrated Follow up with your OB. The radiologist mentioned possible separation of the chorion and amnion, he also noted this could be normal still at your stage of , he is just recommending a follow up ultrasound Patient Language: [place] Citizen Prescriptions: New metoclopramide HCl 5 mg tablet 5 mg PO Q8H PRN (Reason: nausea and vomiting) Qty: 10 0RF No Action ondansetron 4 mg tablet,disintegrating 4 mg PO Q6H PRN (Reason: nausea and vomiting) Qty: 10 0RF doxylamine-pyridoxine (vit B6) 10-10 mg tablet,delayed release (DR/EC) 2 tablet PO QHS prochlorperazine maleate 5 mg tablet 5 mg PO DAILY Follow-up/Referrals: Onel,ELIECER Salinas [Primary Care Provider] -
[2025-02-04 16:05] LABS: Basophils Percent Auto 0.2 % (0.2-1.2); Eosinophils Percent Auto 0.2 % (0-4.4); Hematocrit 39.2 % (37.0-47.0); Immature Granulocyte Absolute 0.02 K/mm3 (0.00-0.031); Immature Granulocyte Percent A 0.2 % (0-0.5); Lymphocytes Absolute Auto 1.21 K/mm3 (0.9-3.2); Lymphocytes Percent Auto 14.9 % (18.3-44.2); Mean Corpuscular HGB Conc 33.2 g/dl (32-36); Mean Corpuscular Hemoglobin 30.4 pg (26-34); Mean Corpuscular Volume 91.8 fl (80-100); Mean Platelet Volume 11.4 fl (7.4-10.4); Monocytes Absolute Auto 0.6 K/mm3 (0.1-0.6); Monocytes Percent Auto 7.8 % (2.6-8.5); Neutrophils Absolute Auto 6.2 K/mm3 (1.3-6.7); Neutrophils Percent Auto 76.7 % (45.5-73.1); Platelet Count Result 155 k/mm3 (150-375); Red Blood Count 4.27 M/mm3 (4.2-5.4); Red Cell Distribution Width 12.7 % (11.5-14.5); White Blood Count 8.1 K/mm3 (4.5-10.0)
[2025-02-04 16:11] LABS: Add Urine Microscopic? YES; Appearance Urine Cloudy (Clear); Bacteria Urine Rare /hpf; Bilirubin Urine Negative (Negative); Blood Urine Negative (Negative); Color Urine Yellow (Yellow); Glucose Urine UA Negative (Negative); Ketones Urine 2+ mg/dL (Negative); Leukocyte Esterase Ur Negative LEU/UL (Negative); Nitrate Urine Negative (Negative); Non Pathogenic Casts 0-2; Protein Urine 1+ mg/dL (Negative); RBC Urine 0-2 /hpf (0-2); Specific Grav Ur 1.033 (1.001-1.035); Squamous Epithelial Cell Urine Few /hpf (Few); WBC Urine 0-5 /hpf (0-3)
[2025-02-04 16:14] LABS: Alanine Aminotransferase 36 U/L (6-35); Albumin Level 3.9 g/dL (3.5-5.1); Alkaline Phosphatase 37 U/L (38-126); Anion Gap 12 mmol/L (4-12); Aspartate Amino Transferase 27 U/L (14-36); Bilirubin,Total 0.7 mg/dL (0.2-1.3); Blood Urea Nitrogen 14 mg/dL (7-17); Calcium 8.4 mg/dL (8.4-10.2); Carbon Dioxide 17 mmol/L (22-30); Chloride 106 mmol/L (98-107); Estimated CRCL calculation 124 ml/min; Estimated Glomerular Filt Rate > 60; Glucose 93 mg/dL (65-110); Lipase 33 U/L (23-300); Potassium 3.5 mmol/L (3.4-5.0); Sodium 135 mmol/L (137-145)
[2025-02-04] MEDS: METOCLOPRAMIDE HCL INJ 10 MG/2 ML VIAL IV PUSH (16:36)
[2025-02-04] MEDS: diphenhydrAMINE HCl INJ 50 MG/ML VIAL 25 MG IV PUSH (16:36)
[2025-02-04] MEDS: SODIUM CHLORIDE 0.9% IV 1,000 ML 999 ML IV CONT ×2 (16:37→17:48)
[2025-02-04 16:42] LABS: Influenza A QL RT-PCR Negative (Negative); Influenza B QL RT-PCR Negative (Negative); SARS-CoV-2 RNA PCR Negative (Negative)
== END 2025-02-04 20:00 | disposition home or self-care (01) ==
PROVIDERS: Emergency Provider Physician Assistant; PCP Physician Assistant
DX: O41.8X10 Other specified disorders of amniotic fluid and membranes, first trimester, not applicable or unspecified (principal); O21.9 Vomiting of pregnancy, unspecified; Z20.822 Contact with and (suspected) exposure to COVID-19; Z3A.10 10 weeks gestation of pregnancy; Z87.891 Personal history of nicotine dependence
CPT/HCPCS: 36415; 76801; 80053; 81001; 83690; 84702; 85025; 87636; 96361; 96374; 96375; 99284; J1200; J2765; J7030